=== PATIENT | female | born 1980 | race African-American/Black ===

== ENCOUNTER 2016-08-31 07:50 | Day surgery (SDC) | payer OTHER ==
[2016-08-31] MEDS ORDERED: 1/2 NS 500 ML ONE (08:09)
[2016-08-31] MEDS ORDERED: KEFZOL 1 GM/D5W 50 ML ONE (08:09)
[2016-08-31] MEDS ORDERED: REGLAN ONE (09:23)
[2016-08-31] MEDS ORDERED: HUMULIN R ONE (09:24)
[2016-08-31] MEDS ORDERED: PEPCID ONE (09:24)
[2016-08-31] MEDS ORDERED: LR 1,000 ML ONE (09:27)
[2016-08-31] MEDS ORDERED: SENSORCAINE 0.25%/EPI 1:200,000 ONE (09:27)
[2016-08-31] MEDS ORDERED: SODIUM CHLORIDE 0.9% ONE (09:27)
[2016-08-31 11:19] LABS: CALCIUM 9.3 mg/dL (8.8-10.2)
[2016-08-31] MEDS: DILAUDID ONE ×2 (11:39→11:55)
[2016-08-31] MEDS ORDERED: FENTANYL ONE (11:43)
[2016-08-31] MEDS ORDERED: DIPRIVAN 1% ONE (11:43)
[2016-08-31] MEDS ORDERED: VERSED ONE (11:43)
[2016-08-31] MEDS ORDERED: ZOFRAN ONE ×2 (11:44→12:37)
[2016-08-31] MEDS ORDERED: DILAUDID ONE ×2 (12:12→13:41)
--- NOTE | 2016-08-31 12:33 | OPERATIVE NOTE ---
PROCEDURE DATE: 08/31/2016 PREOPERATIVE DIAGNOSIS: Chronic cholecystitis. POSTOPERATIVE DIAGNOSIS: Chronic cholecystitis. PRINCIPAL PROCEDURE: Laparoscopic cholecystectomy without intraoperative cholangiogram. SURGEON: Concepcion Irene MD. ANESTHESIA: General in addition to local anesthetic. ESTIMATED BLOOD LOSS: 50 mL. DRAINS: None. INDICATIONS: Becky Chaparro is a 36-year-old black female who has end-stage renal disease and requires chronic hemodialysis. She is dialyzing using a right internal jugular PermCath at this time. She has had a history of peritoneal dialysis. She has insulin-dependent diabetes mellitus which is poorly controlled. Her admission glucose was 461 this morning. She also has gastroparesis and multiple other medical problems. She is hospitalized frequently at [facility] and every hospitalization there is a question of her gallbladder. Imaging suggests sludge so I have seen her in our outpatient offices and felt we should proceed with cholecystectomy electively. FINDINGS: The gallbladder was distended, there was no evidence of acute inflammation or stones in the gallbladder. She had a short cystic duct so we did not perform a cholangiogram. We were comfortable with the anatomy in the triangle of Calot. Her liver appears to be healthy. She did have some adhesions between the right lobe of the liver and the anterior abdominal wall. She had only a minimal adhesion between the greater omentum and the anterior abdominal wall in the lower abdomen. There was some inflammation at the duodenum and the underside of the gallbladder which we were able to dissect fairly easily. No other intra-abdominal pathology was noted. We felt we did this operation safely. DESCRIPTION OF PROCEDURE: The patient was brought to the operating room, placed supine, received general anesthesia, was intubated. She also received Ancef prophylactically. She dialyzed last yesterday. Her abdomen was prepped and draped within the sterile field. She had a previous scar below the umbilicus and I excised that scar with a 15 blade scalpel. We used a Veress needle and introduced it through this incision below the umbilicus into the abdomen. Pneumoperitoneum was established. The Veress needle was removed and I placed an 11 mm trocar through this incision into the abdomen. The camera was placed through this port, and the abdomen was explored for injury, and there was none. We placed 3 other trocars under direct vision of the camera along the right costal margin. We placed an 11 mm trocar just to the right of the midline and two 5 mm trocars in our midclavicular and anterior axillary lines. We did take some time to take some pictures intra-abdominally and also we used a spatula cautery to take down the adhesions between the right lobe of the liver and the anterior abdominal wall so that we could mobilize the gallbladder and the right lobe of the liver superiorly. We bluntly dissected the underside of the gallbladder and the duodenum away from this area of the gallbladder bluntly. We identified the triangle of Calot and carefully dissected it again bluntly. We found the cystic artery. A clip was placed distally, 2 proximally. It was divided using hook scissors. We identified the cystic duct which was short. We carefully dissected it free and we placed a clip at the cystic duct gallbladder junction. We decided against the cholangiogram and placed 2 clips proximally on the cystic duct and divided the cystic duct between clips using hook scissors. The spatula cautery was used to remove the gallbladder from the liver bed. There is no spillage of stones or bile during this procedure and then we removed the gallbladder through our umbilical incision. We placed the trocar back through this incision and the area of operation was thoroughly inspected, irrigated, and the irrigation was removed with suction. There was no evidence of ongoing bleeding or bile leak and we decided against leaving a drain. We placed 2 [id number] 2-0 Vicryl stitches to reapproximate the fascia below the umbilicus and all skin was closed with 4-0 Monocryl subcuticular stitches. Dressings were applied. Plans are for her to go the recovery room and possibly be discharged home later today under the care of her family with followup in our outpatient office in 2 weeks.
[2016-08-31] MEDS ORDERED: XYLOCAINE-MPF 2% ONE (12:37)
[2016-08-31] MEDS ORDERED: ZEMURON ONE (12:37)
[2016-08-31] MEDS ORDERED: ROBINUL ONE (12:37)
[2016-08-31] MEDS ORDERED: DECADRON ONE (12:37)
[2016-08-31] MEDS ORDERED: EPHEDRINE ONE (12:37)
[2016-08-31] MEDS ORDERED: NEO-SYNEPHRINE ONE (12:37)
[2016-08-31] MEDS ORDERED: NEOSTIGMINE ONE (12:37)
[2016-08-31] MEDS ORDERED: PHENERGAN ONE (13:40)
[2016-08-31 14:19] VITALS: BP 140/99
== END 2016-08-31 14:35 | disposition home or self-care (01) ==
LOC: OPS 07:50
PROVIDERS: ATTEND Surgery
DX: K81.1 Chronic cholecystitis (principal); Z87.891 Personal history of nicotine dependence; E11.9 Type 2 diabetes mellitus without complications; Z79.4 Long term (current) use of insulin; I10 Essential (primary) hypertension; E78.00 Pure hypercholesterolemia, unspecified; F32.9 Major depressive disorder, single episode, unspecified; Z86.73 Personal history of transient ischemic attack (TIA), and cerebral infarction without residual deficits; Z23 Encounter for immunization
CPT/HCPCS: 80048; 82948; 88304; C1751; J0690; J1100; J1170; J2250; J2370; J2405; J2550; J2765; J3010; J7120; Q9966; J2710

== ENCOUNTER 2016-10-26 06:06 | Day surgery (SDC) | payer OTHER ==
[2016-10-26] MEDS ORDERED: PEPCID ONE (06:26)
[2016-10-26] MEDS ORDERED: KEFZOL 1 GM/D5W 50 ML ONE (06:26)
[2016-10-26] MEDS ORDERED: REGLAN ONE (06:26)
[2016-10-26] MEDS ORDERED: 1/2 NS 500 ML ONE (06:26)
[2016-10-26 06:50] LABS: HEMATOCRIT 40.8 % (37.0-47.0); HEMOGLOBIN 13.3 g/dL (12.0-16.0); MCH 29.2 PG (27-31); MCHC 32.6 g/dL (33-37); MCV 89.5 FL (81-99); MPV 9.6 FL (7.4-10.4); RBC 4.56 XMIL (4.2-5.4)
[2016-10-26 07:13] LABS: CALCIUM 9.7 mg/dL (8.8-10.2); POTASSIUM 4.8 mmol/L (3.5-5.1)
[2016-10-26] MEDS ORDERED: XYLOCAINE 1%/EPI 1:100,000 ONE (08:19)
[2016-10-26] MEDS ORDERED: NS 1,000 ML ONE (08:19)
[2016-10-26] MEDS ORDERED: HEPARIN ONE (08:19)
[2016-10-26] MEDS: MORPHINE ONE ×2 (12:26→12:31)
[2016-10-26] MEDS: HUMULIN R IV ONE ×2 (12:34→13:40)
--- NOTE | 2016-10-26 13:04 | OPERATIVE NOTE ---
PROCEDURE DATE : 10/26/2016 PREOPERATIVE DIAGNOSIS: End-stage renal disease requiring chronic hemodialysis. POSTOPERATIVE DIAGNOSIS: End-stage renal disease requiring chronic hemodialysis. PRINCIPAL PROCEDURE: Right arm transposed basilic vein to brachial artery arteriovenous fistula. SURGEON: Concepcion Irene MD [employer] COORDINATOR: Perez Maynard. ANESTHESIA: General. ESTIMATED BLOOD LOSS: 75 mL. DRAINS: None. INDICATION: Becky Chaparro is a small 36-year-old black female who has end-stage renal disease and requires chronic hemodialysis. She is dialyzing with a right PermCath and we were asked to place a more permanent access. FINDINGS: She had a good basilic vein. Her brachial artery had some disease in it and was small. At the end of our creation of a transposed basilic vein fistula there was a good thrill in this fistula. DESCRIPTION OF PROCEDURE: The patient was brought to the operating room, placed supine, received general anesthesia, and was ventilated. Her right upper extremity was prepped and draped in a sterile field. We used an Ioban on the skin. She received Ancef prophylactically. We began the procedure by making a small transverse incision in the medial aspect of the proximal right arm with a 15 blade scalpel and we identified the basilic vein. When then enlarged our incision along the medial aspect of her right arm as we identified the basilic vein using forceps and scissors. Our incision was placed above the basilic vein along the length of the entire arm. We then divided the basilic vein at the antecubital fossa between 3-0 silk ties and we began dissecting the vein out of its bed being sure that we did not hurt any of the surrounding nerves. As we encountered branches we ligated with 4-0 or 3-0 silk ties. We completely mobilized the basilic vein from distal to proximal up to the axilla. We then dilated it with heparin and saline using a Bulldog clamp proximally. We had marked the vein to be sure we did not twist it and then I used a long Evy clamp to make a tunnel in the subcutaneous tissue more anteriorly on the arm and we brought the entire length of the vein through that tunnel and we performed our end basilic vein to side brachial artery anastomosis in the distal medial right above the antecubital fossa after the basilic vein had been tunneled more superficially and anteriorly in the arm. We performed this end-to-side anastomosis with a double-armed 6-0 Prolene stitch. It must be noted that we controlled flow through the brachial artery with vessel loops. We performed the arteriotomy with an 11 blade scalpel and Pott's scissors and we flushed both proximally and distally in the brachial artery. We also gave the patient 2,000 units of IV heparin. Before we completed the anastomosis we used the dilator to be sure that proximally the artery was opened distally and that the vein remained open after our anastomosis. We reestablished flow through the brachial artery and we had a thrill in our fistula and we felt that it laid nicely in the anterior aspect of the arm. We used 3-0 popoff Vicryl stitches to close the soft tissue around our anastomosis and also to close the entire length of the incision subcutaneous tissue with these pop-off 3-0 Vicryl stitches. We then closed the skin with a skin clip order planner and dressings were applied. She tolerated the procedure well. She will go to the recovery room. We will check flow to her hand and wrist. If she is doing well we may send her home later this afternoon with follow up in my outpatient office.
[2016-10-26] MEDS ORDERED: HUMULIN R ONE (13:39)
[2016-10-26] MEDS ORDERED: NORCO-5 ONE (14:06)
[2016-10-26] MEDS ORDERED: DIPRIVAN 1% ONE (14:37)
[2016-10-26] MEDS ORDERED: FENTANYL ONE (14:37)
[2016-10-26] MEDS ORDERED: NIMBEX 2 MG DOSE ONE (14:45)
[2016-10-26] MEDS ORDERED: NEO-SYNEPHRINE ONE (14:45)
[2016-10-26] MEDS ORDERED: ZOFRAN ONE (14:45)
[2016-10-26] MEDS ORDERED: NS 250 ML ONE (14:45)
[2016-10-26] MEDS ORDERED: ZOFRAN ODT PO ONE (15:00)
[2016-10-26 15:37] VITALS: BP 120/75
== END 2016-10-26 15:20 | disposition home or self-care (01) ==
LOC: OPS 06:06
PROVIDERS: ATTEND Surgery
DX: I12.0 Hypertensive chronic kidney disease with stage 5 chronic kidney disease or end stage renal disease (principal); N18.6 End stage renal disease
CPT/HCPCS: 80048; 82948; 85027; J0690; J1644; J2270; J2370; J2405; J3010; J7030; J7050

== ENCOUNTER 2016-10-27 13:48 | Observation (INO) | payer OTHER ==
--- NOTE | 2016-10-27 14:21 | PROVIDER DOCUMENTATION ---
HPI-General Adult - General Source: patient - History of Present Illness -Gen Adult Nature of Presenting Problems: patient is a 36 y/o F that presents to the ER with elevated blood sugar, n/v, and generalized weakness. patient has long standing history with diabetes. She is ESRD with dialysis. she is awaiting for kidney and pancreatic transplant. She is well know to the ER and hospital. She denies fever/chills, shortness of breath, or chest pain Location of Pain/Injury: reports: generalized Pain Radiation: reports: no radiation Quality of Pain: reports: aching Severity: reports: moderate Onset/Duration: reports: unsure Timing: reports: still present, constant Context/Activities at Onset: reports: none Modifying Factors: improves with: nothing Associated Symptoms: reports: fatigue, muscle aches, nausea, vomiting, weakness . denies: back/neck pain, chest pain, cough, diarrhea, dizziness, EENT symptoms , fever/chills, genitourinary problems, shortness of breath Similar Symptoms Previously?: Yes Recently seen or treated by another doctor?: No - Diabetes Related Context Context: reports: high blood sugar, prior DKA hospitalization <Hamlet Bennett - Last Filed: 10/27/16 14:16> <Brian Fink - Last Filed: 10/27/16 18:09> - General Chief Complaint: Nausea/Vomiting Stated Complaint: hyperglycemia,nausea/vomiting/weakness Time Seen by Provider: 10/27/16 14:14 Allergies/Adverse Reactions: Patient Allergies Allergy/AdvReac Type Severity Reaction Status Date / Time No Known Allergies Allergy Verified 10/27/16 15:54 Home Medications: Home Medication List Medication Instructions Recorded Confirmed Last Taken Type Biotin 1 mg PO EVERY OTHER DAY 01/02/16 10/27/16 10/27/16 07:00 History Zolpidem [Ambien] 10 mg PO HS PRN PRN 06/27/16 10/27/16 10/26/16 History Amlodipine [Norvasc] 10 mg PO DAILY #0 tablet 07/16/16 10/27/16 10/27/16 07:00 Rx Diltiazem C.d. [Cardizem Cd] 360 mg PO DAILY #0 capsule 07/16/16 10/27/16 07:00 Rx Epoetin Yasir [Epogen] 10,000 unit SUBQ MoWeFr@0900 #0 07/16/16 10/27/16 07:00 Rx vial Fluoxetine [Prozac] 40 mg PO DAILY #0 capsule 07/16/16 10/27/16 10/27/16 07:00 Rx Furosemide [Lasix] 80 mg PO BID #0 tablet 07/16/16 10/27/16 10/27/16 07:00 Rx LISINOpril [Prinivil] 20 mg PO DAILY #0 tablet 07/16/16 10/27/16 10/27/16 07:00 Rx Levetiracetam [Keppra] 250 mg PO BID #0 tablet 07/16/16 10/27/16 10/27/16 07:00 Rx Metoprolol [Lopressor] 50 mg PO BID #0 tablet 07/16/16 10/27/16 10/27/16 07:00 Rx Mirtazapine [Remeron] 45 mg PO QHS #0 tablet 07/16/16 10/27/16 10/26/16 Rx Multivitamins/Minerals [Centrum 1 each PO DAILY #0 tablet 07/16/16 10/27/1609/14 07:00 Rx Tablet] PRAVAstatin [Pravachol] 80 mg PO QHS #0 tablet 07/16/16 10/27/16 10/26/16 Rx Sucralfate [Carafate Liquid] 1 gm PO Q6HR #120 udc 07/16/16 10/27/16 10/27/16 07 :00 Rx Pantoprazole [Protonix] 40 mg PO DAILY@0700 #30 tablet 07/27/16 10/27/16 07:00 Rx Insulin Glargine [Lantus] 5 unit SUBQ QHS #0 insuln.pen 08/04/16 10/27/16 Rx Metoclopramide [Reglan] 5 mg PO AC + HS #120 tablet 08/04/16 10/27/16 10/27/16 07:00 Rx Insulin Glargine [Lantus] 10 unit SUBQ QAM 08/31/16 10/27/16 10/27/16 07:00 History Hydrocodone/Acetaminophen [[place] 1 each PO Q4H PRN PRN #30 tablet 10/26/1610/2710/27/16 07:00 Rx 7.5-325 Tablet] Review of Systems - Adult - REVIEW OF SYSTEMS - ADULT Constitutional: reports: fatique. denies: chills, fever Eyes: denies: decreased vision, blurred vision, double vision Ears, Nose, Mouth & Throat: reports: no symptoms reported Cardiovascular: denies: chest pain, palpitations, syncope Respiratory: denies: shortness of breath, wheezing Gastrointestinal: reports: abdominal pain, nausea, vomiting Genitourinary: denies: dysuria, frequency, hematuria Musculoskeletal: denies: back pain, joint pain, neck pain Integumentary: reports: no symptoms reported Neurological: denies: dizziness/vertigo, headache/migraines, seizure, syncope Psychiatric: reports: no symptoms reported Endocrine: reports: no symptoms reported Hematologic/Lymphatic: reports: no symptoms reported Allergic/Immunologic: reports: no symptoms reported All Other Systems: Reviewed and Negative <Hamlet Bennett - Last Filed: 10/27/16 14:16> Past History - Adult - PAST MEDICAL HISTORY-ADULT Review of Records: reports: Old Records Reviewed, Nursing Assessment Review, Medications Reviewed Cardiovascular: reports: CHF, HTN, hyperlipidemia, other (cardiomyopathy) Gastrointestinal: reports: GERD, other (gastroparesis, eroding esophagus) Genitourinary: reports: dialysis (now hemodialysis), ESRD Neurological: reports: CVA, stroke deficits (left sided weakness), Seizures/ Epilepsy Psychiatric: reports: anxiety Endocrine/Immune: reports: Diabetes Other Conditions: reports: cataract/glaucoma - PRIOR SURGERIES/PROCEDURES Surgical/Procedure History: reports: colonoscopy, indwelling device (dialysis access), other (cataract removal) - IMMUNIZATION STATUS Childhood Immunizations: See Nurse Assessment Flu Vaccine: See Nurse Assessment - FAMILY HISTORY Family History: reviewed, not pertinent - SOCIAL HISTORY Smoking: quit greater than 1 year, cigarettes Living Situation: family <Hamlet Bennett - Last Filed: 10/27/16 14:16> Physical Exam-General - PHYSICAL EXAM-ADULT Initial Vital Signs Reviewed: Yes - CONSTITUTIONAL General Appearance: alert, other (chronic ill appearing) - EYES Eyes: PERRL/EOMI, pink conjunctivae - HEAD, EARS, NOSE, MOUTH & THROAT HENMT: normocephalic/atraumatic, normal ENT inspection - NECK Neck: full range of motion, normal inspection - RESPIRATORY Respiratory: lungs clear, normal breath sounds, no respiratory distress, no accessory muscle use - CARDIOVASCULAR Cardiovascular: regular rate, rhythm, no edema, no murmur - GASTROINTESTINAL (ABDOMEN) Abdominal Exam: normal bowel sounds, non tender, soft, no organomegaly, no pulsatile mass - MUSCULOSKELETAL Extremity: no calf tenderness, normal capillary refill, pelvis stable - SKIN Integumentary: warm/dry, other (right arm bandage from av vistula) - NEUROLOGIC Neurologic: grossly normal, no motor/sensory deficits - PSYCHIATRIC Psych/Mental Status: normal mood/affect, oriented x 3 <Hamlet Bennett - Last Filed: 10/27/16 14:16> Progress - EKG 1 EKG Interpretation (*Must complete 3 of following elements*): Normal - XRAY 1 XRAY Study: Chest Impression: See EMR Report - CONSULTS/PCP/HOSPITALIST Notification #1 *Consult/PCP/Hospitalist*: Hospitalist Consult Disposition: Admit #2 [address]: Dr Kay(nephrology) Consult Disposition: Admit <Brian Fink - Last Filed: 10/27/16 18:09> Departure <Hamlet Bennett - Last Filed: 10/27/16 14:16> - Departure Time of Disposition Order: 18:09 Certified Medical Emergency: Emergent <Brian Fink - Last Filed: 10/27/16 18:09> - Departure DIAGNOSIS: Renal failure (ARF), acute on chronic Intractable nausea and vomiting Qualifiers: Vomiting type: unspecified Qualified Code(s): R11.2 - Nausea with vomiting, unspecified Disposition: ADMITTED INPATIENT 09 Condition: Fair Attestation - Scribe Verification/Attestation Scribe:: Hamlet Bennett Acting as Scribe for:: Brian Fink Scribe documention review:: This chart was documented by a scribe and accurately reflects the service the provider performed and the decisions made by the provider. <Hamlet Bennett - Last Filed: 10/27/16 14:16> Physician Attestation - Physician Attestation I, the provider, attest to the following statement:: Brian Fink Physician documentation Attestation:: This documentation recorded by the scribe accurately reflects the service I personally performed and the decisions made by me. <Hamlet Bennett - Last Filed: 10/27/16 14:16>
[2016-10-27] MEDS ORDERED: NS 500 ML IV ONE (14:22)
[2016-10-27 14:38] LABS: BASO% 0.2 % (0.0-0.8); EOS# 0.01 X1000 (0.0-0.7); EOS% 0.1 % (0.0-10.0); HEMATOCRIT 35.5 % (37.0-47.0); HEMOGLOBIN 11.6 g/dL (12.0-16.0); IMM GRAN# 0.06 X1000 (0.0-0.04); IMM GRAN% 0.3 % (0.0-0.5); LYMPH# 1.15 X1000 (1.2-3.4); MANUAL DIFF NEEDED? NO; MCH 29.4 PG (27-31); MCHC 32.7 g/dL (33-37); MCV 89.9 FL (81-99); MONO# 2.23 X1000 (0.11-0.59); MONO% 11.6 % (1.7-9.3); MPV 9.8 FL (7.4-10.4); NEUT% 81.8 % (42.2-75.2); PLT 377 X1000 (130-400); RBC 3.95 XMIL (4.2-5.4)
[2016-10-27 14:41] LABS: ALLEN TEST YES; BE -9.5 mmoll (-3.0-3.0); BLOOD TYPE ARTERIAL; DRAW SITE R RADIAL; O2(CT) 14.2 mL/dL (15.0-23.0); PCO2(98.6) 35 mmHg (35-45); PO2(98.6) 66 mmHg (60-100); SAMPLE BLOOD; SAO2 92.4 % (95.0-100.0); THB 11.1 g/dL (11.5-17.4); pH(98.6) 7.28 (7.35-7.45)
[2016-10-27 14:42] LABS: MODALITY ROOM AIR
[2016-10-27 14:45] LABS: INR 1.03; PROTIME 10.9 Seconds (9.2-11.7); PTT 26.3 Seconds (22.0-36.0)
[2016-10-27 15:15] LABS: AGAP 25; ALKALINE PHOSPHATASE 192 U/L (32-104); BUN 84 mg/dL (8-22); CALCIUM 9.4 mg/dL (8.8-10.2); CHLORIDE 90 mmol/L (98-107); CK PROFILE 39 U/L (24-173); COSMO 302; GOT 15 U/L (10-30); GPT 16 U/L (10-36); MAGNESIUM 2.3 mg/dL (1.5-2.7); POTASSIUM 6.2 mmol/L (3.5-5.1); SODIUM 130 mmol/L (136-145); TCO2 15 mmol/L (25-35); TOTAL BILIRUBIN 0.18 mg/dL (0.20-1.00); TOTAL PROTEIN 7.7 g/dL (6.3-8.3)
[2016-10-27] MEDS ORDERED: LASIX IV ONE (15:24)
[2016-10-27] MEDS ORDERED: DUONEB (A & A) INH ONE (15:24)
[2016-10-27 15:34] LABS: ACETONE SERUM NEGATIVE (NEGATIVE)
--- NOTE | 2016-10-27 16:06 | Diag Imaging Result Document ---
PROCEDURE NAME: CHEST-2 VIEWS - 10/27/2016 CHEST X-RAY 2 VIEWS: COMPARISON: 08/12/2016. FINDINGS: Stable right-sided dialysis catheter in good position. Stable cardiomegaly. The lungs are clear. No pneumothorax or pleural effusion. IMPRESSION: Cardiomegaly. No acute disease.
[2016-10-27] MEDS ORDERED: NS 2,000 ML ONE (16:08)
[2016-10-27] MEDS ORDERED: HEPARIN IV PRN (16:46)
[2016-10-27] MEDS ORDERED: TIGHT: 0.2 ML/HR MISC PRN (16:46)
[2016-10-27] MEDS ORDERED: NS 2,000 ML MISC PRN (16:46)
--- NOTE | 2016-10-27 18:18 | HISTORY AND PHYSICAL ---
PRIMARY CARE PROVIDER: No one. PRIMARY NEUROLOGY PROFESSOR: Dr. Kay. CHIEF COMPLAINT: Hyperglycemia, nausea, vomiting, and weakness. HISTORY OF PRESENT ILLNESS: Ms. Chaparro is a 36-year-old female , well known to our service for multiple admissions for DKA and end-stage renal disease, states that she has not been feeling well over the last couple days. Yesterday, on 10/26/2016 she had a right arm AV fistula surgery for placement. She also has a right jugular hemodialysis catheter. Apparently, she was on a waiting list for a kidney, pancreas transplant. On Tuesday when she was scheduled for dialysis she was called to [facility] and spent most her day there and never received dialysis on Tuesday. Today she has a creatinine that is up to a 10.5. BUN is 84 and her potassium is 6.2. She has already been sent to hemodialysis by Dr. Kay for dialysis. Otherwise, she has no other complaints. Apparently when she was at [facility] the transplant team found out that she has had a history of a stroke and that ruled her out for a transplant possibilities. Will admit her to the medical floor and monitor her overnight. PAST MEDICAL HISTORY: 1. End-stage renal disease on hemodialysis Tuesday, Tuesday, Tuesday. 2. Seizure disorder. 3. Diastolic heart failure. 4. Hypertension. 5. GERD. 6. Diabetic gastroparesis. 7. Diabetes mellitus type 1, uncontrolled. 8. Anemia of chronic disease. 9. Diabetic neuropathy. 10. Esophagitis. 11. 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 12. Recent CVA. PAST SURGICAL HISTORY: 1. AV fistula on 10/26/2016. 2. Corneal transplant. 3. Esophageal dilatation. 4. Hemodialysis catheter placement: SOCIAL HISTORY: Denies alcohol, tobacco, or illicit drug use. FAMILY HISTORY: Positive for hypertension, diabetes, and stroke. She also had a twin sister that from complications of type 1 diabetes, around 10 years ago. ALLERGIES: No known drug allergies. HOME MEDICATIONS: Ambien 10 mg p.o. nightly as needed, biotin 1 mg p.o. every other day, Lantus 10 units subcutaneously daily, Protonix 40 mg p.o. daily, Lantus 5 units subcutaneously nightly, Reglan 5 mg p.o. before meals and at night, Atkins 7.5 one tablet p.o. every 4 hours p.r.n., Carafate 1 g p.o. q.6 hours, diltiazem 360 mg p.o. daily, centrum multivitamin 1 tablet p.o. daily, Epogen 50219 units subcutaneously Tuesday, Tuesday, Tuesday, Keppra 250 mg p.o. twice daily, Lasix 80 mg p.o. twice daily, metoprolol 50 mg p.o. twice daily, Norvasc 10 mg p.o. daily, Pravachol 80 mg p.o. nightly, lisinopril 20 mg p.o. daily, Prozac 40 mg p.o. daily, Remeron 45 mg p.o. nightly. REVIEW OF SYSTEMS: Fourteen point review of systems were complete and all were negative except for those mentioned in the above HPI. LABORATORY DATA: White blood cells 19,000, hemoglobin 11, hematocrit 35, platelet count 377,000. INR 1.03, PTT 26.3. PH 7.28, pCO2 35, PO2 66, bicarb 17, base excess -9, oxyhemoglobin 91%, lactate 1.6. Sodium 130, potassium 6.2, anion gap 25, BUN 84, creatinine is 10.5, glucose 376, calcium 9.4, magnesium 2.3, total bilirubin 0.18, AST 15, ALT 16, alkaline phosphatase 192. CK 39. Troponin less than 0.01. ProBNP greater than 35,000. Acetone level negative. IMAGING: Chest x-ray: Cardiomegaly. No acute disease. Right-sided dialysis catheter in good position. Lungs are clear. PHYSICAL EXAMINATION: VITAL SIGNS: Heart rate 70, respiratory rate 18, blood pressure 117/71, O2 saturation 96%. She is 5 feet 4 inches tall, 123 pounds, BMI 21.1. GENERAL: Ms. Chaparro is a 36-year-old female she is in no acute distress. Resting comfortably while receiving hemodialysis, watching TV. Able to answer all questions appropriately, although she is a little slow to answer questions and sometimes her answers are not completely understandable or clear. HEENT: Atraumatic, normocephalic. Pupils equal, round, reactive to light. Extraocular movements intact. CARDIOVASCULAR: S1, S2. Regular rate and rhythm. No rubs, gallops, or murmurs. PULMONARY: Clear to auscultation. Bilateral breath sounds. No accessory muscle use or work of breathing noted. GI: Soft, nontender, nondistended. Positive bowel sounds x4. NEUROLOGIC: Oriented x4. Moves all extremities equally. EXTREMITIES: No edema noted. Right arm with gauze secondary to newly placed AV fistula. SKIN: Warm, dry, intact. Gauze on the right forearm is dry and intact. ASSESSMENT AND PLAN: 1. End-stage renal disease with acute exacerbation of fluid volume overload and electrolyte imbalance requiring hemodialysis. She missed her dialysis treatment on Tuesday secondary to going to [facility] for a workup for kidney transplant but was ruled out secondary to the fact that she has had a stroke in the past. Dr. Kay is following. 2. Diabetes mellitus type 1. We will continue with pattern blood glucoses and sliding scale insulin. 3. Diastolic heart failure. Continue home medications. 4. Hypertension. Continue home medications. 5. Gastroesophageal reflux disease. Continue proton pump inhibitor. 6. History of stroke, noted. 7. She does have chronic anemia which is stable. She receives Epogen with dialysis treatments. 8. Leukocytosis. White blood cells are up to 19. This could be secondary or reactive to not receiving dialysis on Tuesday. 9. Deep venous thrombosis prophylaxis. Heparin. Dictated by MANNY Pederson for Ron Waterman MD Addendum: I personally evaluated and examined the patient in conjunction to the [employer] and agreed with her assessments and plans. She missed her dialysis on Tuesday and came in with volume overload. [facility]ITAL[facility]
[2016-10-27] MEDS ORDERED: TYLENOL PO PRN (19:23)
[2016-10-27] MEDS ORDERED: HUMALOG SUBQ ONE (19:23)
[2016-10-27] MEDS ORDERED: ZOFRAN IV PRN (19:23)
[2016-10-27] MEDS ORDERED: AMBIEN PO PRN (19:23)
[2016-10-27] MEDS ORDERED: LOVENOX SUBQ SCH (20:00)
[2016-10-27] MEDS: LOPRESSOR PO SCH (20:28)
[2016-10-27] MEDS: REGLAN PO SCH (20:28)
[2016-10-27] MEDS: KEPPRA PO SCH (20:29)
[2016-10-27] MEDS: CARAFATE LIQUID PO SCH (20:29)
[2016-10-27] MEDS: NORCO-7.5 PO PRN (20:30)
[2016-10-27] MEDS ORDERED: PRAVACHOL PO SCH (21:00)
[2016-10-27] MEDS ORDERED: REMERON PO SCH (21:00)
[2016-10-28] MEDS: CARAFATE LIQUID PO SCH ×2 (04:01→08:17)
[2016-10-28] MEDS: NORCO-7.5 PO PRN (06:12)
[2016-10-28] MEDS: REGLAN PO SCH ×2 (06:12→11:18)
[2016-10-28] MEDS: HUMALOG SUBQ SCH ×2 (06:13→10:53)
[2016-10-28] MEDS ORDERED: PROTONIX PO SCH (07:00)
[2016-10-28 07:11] LABS: MAGNESIUM 1.9 mg/dL (1.5-2.7); POTASSIUM 4.4 mmol/L (3.5-5.1)
[2016-10-28] MEDS: KEPPRA PO SCH (08:18)
[2016-10-28] MEDS: LOPRESSOR PO SCH (08:19)
[2016-10-28] MEDS ORDERED: PROZAC PO SCH (09:00)
[2016-10-28] MEDS ORDERED: NORVASC PO SCH (09:00)
[2016-10-28] MEDS ORDERED: PRINIVIL PO SCH (09:00)
[2016-10-28] MEDS ORDERED: CARDIZEM CD PO SCH (09:00)
[2016-10-28 13:11] VITALS: BP 113/69
--- NOTE | 2016-10-28 16:51 | DISCHARGE SUMMARY ---
ADMISSION DATE: 10/27/2016 DISCHARGE DATE: 10/28/2016 CONSULTATIONS: Hardy Kay MD. DISCHARGE DIAGNOSES: 1. End-stage renal disease with acute exacerbation of fluid volume overload and electrolyte imbalance requiring hemodialysis secondary to missing her regular scheduled dialysis for the patient going to [facility] for workup for a kidney transplant, but was ruled out secondary to the fact that she has had a stroke in the past. Dr. Kay follows her. She will continue on her regular scheduled dialysis. 2. Diabetes mellitus type 1. Continue with home medications. 3. Diastolic heart failure. Continue home medications. 4. Hypertension. Continue home medications. 5. Gastroesophageal reflux disease, continue proton pump inhibitor. 6. Drug history, aware. 7. Chronic anemia, stable. HOSPITAL COURSE: Ms. Chaparro is a 36-year-old, female well known to our service for multiple admissions for DKA, end-stage renal disease. States that she has not been feeling well over the last couple of days. Prior to her admission on 10/26/2016, she had a right arm fistula surgery for placement. She also had a right IJ hemodialysis catheter. Ms. Chaparro was on a waiting list for a kidney and pancreas transplant. On Tuesday, she was scheduled for dialysis when she was called to [facility] and spent most of her day there, and never received her dialysis on that Tuesday. Her creatinine was up to 10.5, her BUN was 84. Her potassium was 6.2. She had already been sent to the dialysis by Dr. Kay, so the patient was admitted and watched overnight. The patient is appropriate for discharge home today. Vital signs at time of discharge, temperature is 98.4, heart rate 90, respirations 20, blood pressure 113/69, O2 is 100% on room air. DISCHARGE MEDICINES: As per Dr. Waterman. Please see MAR. DISCHARGE DIET: Renal. FOLLOWUP: Patient is being discharged home. She can follow up with her primary care physician and continue on her regular scheduled dialysis. The patient can return to the ED for any worsening of symptoms. Dictated by MANNY Gonzalez for Ron Waterman MD Addendum: I personally evaluated and examined the patient in conjunction with the [employer] and agreed with her plans and disposition. GARY
[2016-10-29] MEDS ORDERED: EPOGEN SUBQ SCH (09:00)
== END 2016-10-28 13:00 | disposition home or self-care (01) ==
LOC: EDBD → ED 13:48 → 4N 18:07
PROVIDERS: ATTEND Internal Medicine
DX: N18.6 End stage renal disease (principal); E87.70 Fluid overload, unspecified; E87.8 Other disorders of electrolyte and fluid balance, not elsewhere classified; R53.1 Weakness; I69.354 Hemiplegia and hemiparesis following cerebral infarction affecting left non-dominant side; N17.9 Acute kidney failure, unspecified; D63.1 Anemia in chronic kidney disease; E10.22 Type 1 diabetes mellitus with diabetic chronic kidney disease; I13.2 Hypertensive heart and chronic kidney disease with heart failure and with stage 5 chronic kidney disease, or end stage renal disease; E10.65 Type 1 diabetes mellitus with hyperglycemia; I50.32 Chronic diastolic (congestive) heart failure; E10.40 Type 1 diabetes mellitus with diabetic neuropathy, unspecified; D72.829 Elevated white blood cell count, unspecified; Z99.2 Dependence on renal dialysis; R53.83 Other fatigue; E78.5 Hyperlipidemia, unspecified; R11.2 Nausea with vomiting, unspecified; K21.9 Gastro-esophageal reflux disease without esophagitis; Z79.4 Long term (current) use of insulin; Z79.899 Other long term (current) drug therapy; Z87.891 Personal history of nicotine dependence
CPT/HCPCS: 71020; 80048; 80053; 82009; 82550; 82805; 82948; 83605; 83735; 83880; 84484; 85025; 85610; 85730; 87040; 94761; J1644; J1650; J1815; J7030

== ENCOUNTER 2016-12-02 00:47 | Inpatient (IN) ==
[2016-12-02] MEDS ORDERED: REGLAN IV ONE (03:31)
[2016-12-02] MEDS ORDERED: DILAUDID IV ONE (03:32)
--- NOTE | 2016-12-02 03:41 | PROVIDER DOCUMENTATION ---
HPI-General Adult - General Chief Complaint: Nausea/Vomiting Stated Complaint: ABD PAIN Time Seen by Provider: 12/02/16 01:37 Source: patient Allergies/Adverse Reactions: Patient Allergies Allergy/AdvReac Type Severity Reaction Status Date / Time No Known Allergies Allergy Verified 10/27/16 15:54 Home Medications: Home Medication List Medication Instructions Recorded Confirmed Last Taken Type Biotin 1 mg PO EVERY OTHER DAY 01/02/16 12/02/16 12/01/16 History Zolpidem [Ambien] 10 mg PO HS PRN PRN 06/27/16 12/02/16 12/01/16 History Amlodipine [Norvasc] 10 mg PO DAILY #0 tablet 07/16/16 12/02/16 12/01/16 Rx Diltiazem C.d. [Cardizem Cd] 360 mg PO DAILY #0 capsule 07/16/16 12/02/16 Rx Epoetin Yasir [Epogen] 10,000 unit SUBQ MoWeFr@0900 #0 07/16/16 12/02/16 Rx vial Fluoxetine [Prozac] 40 mg PO DAILY #0 capsule 07/16/16 12/02/16 12/01/16 Rx Furosemide [Lasix] 80 mg PO BID #0 tablet 07/16/16 12/02/16 12/01/16 Rx LISINOpril [Prinivil] 20 mg PO DAILY #0 tablet 07/16/16 12/02/16 12/01/16 Rx Levetiracetam [Keppra] 250 mg PO BID #0 tablet 07/16/16 12/02/16 12/01/16 Rx Metoprolol [Lopressor] 50 mg PO BID #0 tablet 07/16/16 12/02/16 12/01/16 Rx Mirtazapine [Remeron] 45 mg PO QHS #0 tablet 07/16/16 12/02/16 12/01/16 Rx Multivitamins/Minerals [Centrum 1 each PO DAILY #0 tablet 07/16/16 12/02/1601/12 Rx Tablet] PRAVAstatin [Pravachol] 80 mg PO QHS #0 tablet 07/16/16 12/02/16 12/01/16 Rx Sucralfate [Carafate Liquid] 1 gm PO Q6HR #120 udc 07/16/16 12/02/16 12/01/16 Rx Pantoprazole [Protonix] 40 mg PO DAILY@0700 #30 tablet 07/27/16 12/02/16 Rx Insulin Glargine [Lantus] 5 unit SUBQ QHS #0 insuln.pen 08/04/16 12/02/16 Rx Metoclopramide [Reglan] 5 mg PO AC + HS #120 tablet 08/04/16 12/02/16 12/01/16 Rx Insulin Glargine [Lantus] 10 unit SUBQ QAM 08/31/16 12/02/16 12/01/16 History Hydrocodone/Acetaminophen [Cary 1 each PO Q4H PRN PRN #30 tablet 10/26/1612/0212/01/16 Rx 7.5-325 Tablet] Nitrofurantoin Monohyd/M-Cryst 100 mg PO BID #14 capsule 11/30/16 12/02/1612/01 Rx [Macrobid 100 mg Capsule] Ondansetron [Zofran] 4 mg PO Q6H PRN PRN #20 tablet 11/30/16 12/02/16 12/01/16 Rx - History of Present Illness -Gen Adult Nature of Presenting Problems: 36 yo BF with DM - 1 came to the ER with N and V for past 4 days. She did go to dialysis Wed for her regularly scheduled appt. however, This am she was unable to keep anyof her meds down. Denies fever wilberto chills Location of Pain/Injury: reports: none Pain Radiation: reports: no radiation Quality of Pain: reports: cramping Severity: reports: moderate Onset/Duration: reports: 4 days ago Timing: reports: still present Context/Activities at Onset: reports: none Modifying Factors: improves with: nothing Associated Symptoms: reports: loss of appetite, nausea, vomiting Similar Symptoms Previously?: Yes Recently seen or treated by another doctor?: Yes (ER) Review of Systems - Adult - REVIEW OF SYSTEMS - ADULT Constitutional: reports: fatique, weight loss Eyes: reports: no symptoms reported Ears, Nose, Mouth & Throat: reports: no symptoms reported Cardiovascular: reports: no symptoms reported Respiratory: reports: no symptoms reported Gastrointestinal: reports: see HPI, other (Known to have gastroparesis) Genitourinary: reports: other (currently on dialysis 3x/ week) Neurological: reports: dizziness/vertigo Psychiatric: reports: depression Past History - Adult - PAST MEDICAL HISTORY-ADULT Review of Records: reports: Old Records Reviewed, Nursing Assessment Review, Medications Reviewed Major Childhood Illnesses: reports: denies history Cardiovascular: reports: CHF, HTN, hyperlipidemia, other (cardiomyopathy) Gastrointestinal: reports: GERD, other (gastroparesis, eroding esophagus) Genitourinary: reports: dialysis, kidney disease Neurological: reports: Seizures/Epilepsy Endocrine/Immune: reports: Diabetes Other Conditions: reports: cataract/glaucoma - PRIOR SURGERIES/PROCEDURES Surgical/Procedure History: reports: colonoscopy, indwelling device (dialysis access), other (cataract removal) - PRIOR HOSPITALIZATIONS Prior Hospitalizations: reports: for other non-related - IMMUNIZATION STATUS Childhood Immunizations: See Nurse Assessment Flu Vaccine: See Nurse Assessment - FAMILY HISTORY Family History: reviewed, not pertinent Physical Exam-General - PHYSICAL EXAM-ADULT Initial Vital Signs Reviewed: Yes - CONSTITUTIONAL General Appearance: moderate distress, cachetic - EYES Eyes: pink conjunctivae - HEAD, EARS, NOSE, MOUTH & THROAT HENMT: moist mucous membranes - NECK Neck: non-tender, full range of motion - RESPIRATORY Respiratory: chest non-tender, lungs clear - CARDIOVASCULAR Cardiovascular: regular rate, rhythm, no edema, no gallop - GASTROINTESTINAL (ABDOMEN) Abdominal Exam: no organomegaly, no pulsatile mass, abdominal bruit, tenderness . negative: normal bowel sounds - LYMPHATIC Lymphatic: no adenopathy - MUSCULOSKELETAL Back Exam: normal inspection, no CVA tenderness Extremity: normal range of motion - SKIN Integumentary: normal color, normal turgor - NEUROLOGIC Neurologic: other (peripheral neuropathy) - PSYCHIATRIC Psych/Mental Status: oriented x 3 Progress - PLAN OF CARE/RESULTS Progress/Plan/Lab Results: Vital Signs - 8 hr 12/02/16 00:50 Temperature 98.2 F Pulse Rate 115 H Respiratory Rate 24 Blood Pressure 193/105 O2 Sat by Pulse Oximetry 99 Orders Category Date Time Status Saline Loc NOW Care 12/02/16 03:30 Active BMP [BASIC METABOLIC PANEL] [CHEM] Stat Lab 12/02/16 03:21 Uncollected CBC WITH ELECTRONIC DIFF [HEME] Stat Lab 12/02/16 03:21 Uncollected Hydromorphone [Dilaudid] Med 12/02/16 03:32 Discontinued 1 mg IV NOW ONE Metoclopramide [Reglan] Med 12/02/16 03:31 Discontinued 10 mg IV NOW ONE Result Diagrams: 12/02/16 03:50 12/02/16 03:50 - REASSESSMENT Reassessment #1 Time Reassessed: 06:55 (vomiting has stopped) Status: improving Departure - Departure Time of Disposition Decision: 06:56 DIAGNOSIS: Gastroparesis Type 1 diabetes Qualifiers: Diabetes mellitus complication status: with kidney complications Diabetes mellitus complication detail: with chronic kidney disease Disposition: ADMITTED INPATIENT 09 Certified Medical Emergency: Emergent Condition: Fair Referrals and Follow-Ups: Vicki Lee MD [Primary Care Provider] -
[2016-12-02 04:09] LABS: MANUAL DIFF NEEDED? NO
[2016-12-02 04:10] LABS: BASO% 0.7 % (0.0-0.8); EOS# 0.02 X1000 (0.0-0.7); EOS% 0.2 % (0.0-10.0); HEMATOCRIT 39.6 % (37.0-47.0); IMM GRAN# 0.02 X1000 (0.0-0.04); IMM GRAN% 0.2 % (0.0-0.5); LYMPH# 1.06 X1000 (1.2-3.4); LYMPH% 10.5 % (20.5-51.1); MCH 30.3 PG (27-31); MCHC 32.8 g/dL (33-37); MCV 92.3 FL (81-99); MONO# 0.97 X1000 (0.11-0.59); MONO% 9.6 % (1.7-9.3); MPV 9.4 FL (7.4-10.4); NEUT% 78.8 % (42.2-75.2); PLT 327 X1000 (130-400); RBC 4.29 XMIL (4.2-5.4)
[2016-12-02 04:31] LABS: POTASSIUM 4.2 mmol/L (3.5-5.1)
[2016-12-02] MEDS ORDERED: NS 3,000 ML IV ONE (07:10)
[2016-12-02 07:16] LABS: ALLEN TEST NO; BLOOD TYPE ARTERIAL; DRAW SITE L BRACHIAL; METHB 1.1 % (0.0-1.5); O2(CT) 16.2 mL/dL (15.0-23.0); PCO2(98.6) 42 mmHg (35-45); PO2(98.6) 68 mmHg (60-100); SAMPLE BLOOD; SAO2 93.7 % (95.0-100.0); THB 12.5 g/dL (11.5-17.4); pH(98.6) 7.37 (7.35-7.45)
[2016-12-02 07:17] LABS: MODALITY ROOM AIR
[2016-12-02 07:40] LABS: ACETAMINOPHEN < 1.2 ug/mL (10-30)
[2016-12-02 07:48] LABS: ALBUMIN 4.4 g/dL (3.5-5.0); ALKALINE PHOSPHATASE 139 U/L (32-104); DIRECT BILIRUBIN < 0.20 mg/dL (0.00-0.20); GOT 17 U/L (10-30); GPT 29 U/L (10-36)
--- NOTE | 2016-12-02 07:54 | Diag Imaging Result Document ---
PROCEDURE NAME: FLAT/UPRIGHT ABD/1 VIEW CHEST - 12/02/2016 FRONTAL CHEST X-RAY AND 2 VIEWS OF THE ABDOMEN: COMPARISON: 10/27/2016. FINDINGS: Stable right-sided dialysis catheter. Heart size remains borderline enlarged. There is some ill-defined linear infiltrate or atelectasis at the cardiac apex that is new from the prior exam. There are cholecystectomy clips. No bowel obstruction or free air. IMPRESSION: Slight worsening atelectasis or infiltrate at the cardiac apex. Stable cardiomegaly.
[2016-12-02] MEDS ORDERED: POTASSIUM CHLORIDE 40 MEQ in NS 250 ML IV PRN (08:41)
[2016-12-02] MEDS ORDERED: SODIUM PHOSPHATE 30 MMOL in D5W 250 ML IV PRN (08:41)
[2016-12-02] MEDS ORDERED: POTASSIUM CHLORIDE 20 MEQ in NS 100 ML IV PRN (08:41)
[2016-12-02] MEDS ORDERED: HUMULIN R 100 UNIT in NS 99 ML IV SCH (08:41)
[2016-12-02] MEDS ORDERED: MAGNESIUM SULFATE 2 GM/S.W.I. 2 GM/50 ML IVPB IV PRN (08:41)
[2016-12-02] MEDS ORDERED: HUMULIN R IV ONE (08:41)
[2016-12-02 08:51] LABS: INR 1.11; PROTIME 11.7 Seconds (9.2-11.7); PTT 25.8 Seconds (22.0-36.0)
[2016-12-02 09:19] LABS: URINE MICRO REVIEW NEEDED? NO; URINE SOURCE CLEAN CATCH
[2016-12-02 09:33] LABS: BILIRUBIN URINE NEGATIVE (NEGATIVE); BLOOD URINE SMALL (NEGATIVE); COLOR YELLOW; GLUCOSE URINE 1000 mg/dL (NEGATIVE); LEUKOCYTES URINE NEGATIVE (NEGATIVE); NITRITE URINE NEGATIVE (NEGATIVE); PH URINE 6.5; PROTEIN URINE 600 mg/dL (NEGATIVE); TURBIDITY URINE HAZY (CLEAR); UROBILINOGEN URINE NORMAL (NORMAL)
[2016-12-02 09:35] LABS: UR EPITHELIAL CELLS >10 /HPF (<10); URINE BACTERIA 4+ /HPF; URINE CULTURE NEEDED? YES; URINE RBC 20-40 /HPF (<10)
[2016-12-02 10:00] LABS: HEMOGLOBIN A1C 11.2 % (4.8-6.0)
--- NOTE | 2016-12-02 10:15 | HISTORY AND PHYSICAL ---
CHIEF COMPLAINT: Abdominal pain, nausea, and vomiting. HISTORY OF PRESENT ILLNESS: Ms. Chaparro is a 36-year-old female, well known to our service with multiple DKA admissions, she also has type 1 diabetes, ESRD on hemodialysis Tuesday, Tuesday, Tuesday, gastroparesis and a history of medical noncompliance who presents with nausea, vomiting, abdominal pain since Tuesday. She started having some slight discomfort in the epigastric region on Tuesday. This progressed to a full on abdominal pain and nausea and vomiting consistent with her gastroparesis. She states that since that time, she has had multiple bouts of emesis a day and has been unable to take her Humalog with each meal, she reports taking her Lantus every morning however. She actually came to the ER 2 days ago and was discharged for the same. Today she comes in with complaints of worsening vomiting and abdominal pain. LABORATORY DATA: Her laboratory data is consistent with fairly severe DKA, she has a CO2 of 14 and an anion gap of 40, although her blood sugars are only 284. Acetone levels were obtained and found to be large. As such, she is going to be started on the DKA protocol and admitted to the floor for appropriate management. She did dialyze yesterday. PAST MEDICAL HISTORY: 1. Multiple DKA admissions. 2. ESRD on hemodialysis Tuesday, Tuesday, Tuesday followed by Dr. Kay. 3. Seizure disorder. 4. Diastolic heart failure. 5. Hypertension. 6. GERD. 7. Diabetic gastroparesis. 8. Type 1 diabetes. 9. Anemia of chronic disease. 10. Diabetic neuropathy. 11. Esophagitis/gastritis. 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 13. History of CVA. SURGICAL HISTORY: She has had AV fistula placed as well as hemodialysis catheters. She also has had a corneal transplant and esophageal dilation. SOCIAL HISTORY: Patient denies tobacco, alcohol or drug use. She is single and has no children and lives with her sister. FAMILY HISTORY: Significant for hypertension, diabetes, stroke. REVIEW OF SYSTEMS: The patient has also been complaining of occasional bright red streaks of blood in her emesis. She denies any chest pain or shortness of breath. She reports epigastric pain and vomiting. She denies any diarrhea. She denies any melena. She does report also that she had a seizure earlier today when she got to the hospital. She denies any lower extremity edema. No orthopnea, no fevers or chills. No unintentional weight gain or weight loss. ALLERGIES: No known drug allergies. HOME MEDICATIONS: 1. Norvasc 10 mg daily. 2. Biotin 1 mg daily. 3. Cardizem CD 360 mg daily. 4. Epogen 63919 units subcutaneous as directed. 5. Prozac 40 mg daily. 6. Lasix 80 mg b.i.d. 7. [place] every 4 hours. 8. Lantus 5 units subcutaneously at bedtime. 9. Lantus 10 units subcutaneously in the a.m. 10. Keppra 250 mg b.i.d. 11. Prinivil 20 mg daily. 12. Reglan 5 mg before meals and at bedtime. 13. Lopressor 50 mg b.i.d. 14. Remeron 45 mg at bedtime. 15. Centrum multivitamin 1 daily. 16. Nitrofurantoin 100 mg b.i.d. 17. Zofran 4 mg p.o. every 6 hours. 18. Protonix 40 mg daily. 19. Pravachol 80 mg p.o. at bedtime. 20. Carafate 1 g q.6 hours. 21. Ambien 10 mg at night. PHYSICAL EXAMINATION: VITAL SIGNS: Blood pressure is 168/98, heart rate is 92, respiratory rate is. O2 saturations 100% on room air. Temperature is 98.2. GENERAL: This is a chronically ill and disheveled appearing 36-year-old, female, lying in hospital bed in no acute distress. NEUROLOGIC: The patient is somewhat sleepy but awakens easily and is oriented. No focal deficits noted. HEENT: Head is atraumatic, normocephalic. Pupils are equal, round and reactive to light. Oral mucosa is dry. Trachea is midline. CHEST: Diminished at the bases but otherwise clear to auscultation bilaterally. CV: Regular rate and rhythm. A 1-2/6 murmur noted. GI: Epigastric tenderness to palpation. Otherwise belly is soft and nondistended. No rigidity. Hypoactive bowel sounds noted. EXTREMITIES: Without edema, clubbing or cyanosis. Pulses diminished but palpable bilateral. DIAGNOSTIC DATA: Abdomen and chest x-ray shows slight worsening atelectasis or infiltrate in the cardiac apex. There is stable cardiomegaly. WBC 10.7, hemoglobin 13, hematocrit 39.6, platelet count 3T7, INR 1.11, ABG on room air pH 7.37, CO2 42, O2 68, bicarb is 24. Sodium 138, potassium 4.2, chloride 85, CO2 14, anion gap 39, BUN 34, creatinine 4.9, glucose 284, magnesium 2. Phosphorus 3.1, AST 17, ALT 29, alkaline phosphatase 139, UA is pending. Salicylates negative. Acetaminophen negative with acetone level large. ASSESSMENT AND PLAN: 1. Diabetic ketoacidosis. The patient will be admitted to the CICU with diabetic ketoacidosis protocol and we will continue aggressive fluid resuscitation, close monitoring of her electrolytes, and overall hemodynamic status closely. 2. End stage renal disease on hemodialysis Tuesday, Tuesday, Tuesday: She dialyzed yesterday. We will consult Dr. Kay for continued management. Currently, she is acidotic but her electrolytes are acceptable, as is her hemoglobin and hematocrit. 3. Reported upper gastrointestinal bleed: Likely secondary to retching, her hemoglobin and hematocrit is stable. We are going to check occult fluid of the gastric contents. We will put her on Protonix b.i.d. 4. Hypertension: We will add p.r.n. IV medications for now and continue her home medications once she is able to eat without vomiting. 5. Gastroparesis: Continue her Reglan once diabetic ketoacidosis has resolved. 6. Type 1 diabetes: We are going to check a hemoglobin A1c and continue her insulin regimen, along with sliding scale insulin once diabetic ketoacidosis has resolved. 7. History of seizures with reported seizure earlier: Her lactic acid is within normal limits. She does not appear to be postictal. There are no focal deficits and she is oriented. We will continue the Keppra and monitor. 8. History of medical noncompliance: Continue education on the importance of proper diabetic management and gastroparesis. 9. Deep venous thrombosis prophylaxis with thromboembolic stockings and sequential compression devices given her reported upper gastrointestinal bleeding. Further recommendations to follow. Dictated by MANNY Ansari for Logan Abraham MD cc: MANNY Ansari MD
[2016-12-02 10:23] LABS: AMYLASE 270 U/L (20-200); LIPASE 11 U/L (13-60)
[2016-12-02] MEDS: D50W SYRINGE IV PRN (10:30)
[2016-12-02 10:42] LABS: MAGNESIUM 2.1 mg/dL (1.5-2.7); POTASSIUM 4.5 mmol/L (3.5-5.1)
[2016-12-02 11:13] LABS: UR AMPHETAMINES QUAL NONE DETECTED (NONE DETECT); UR BARBITUATES QUAL NONE DETECTED (NONE DETECT); UR BENZODIAZEPIN QUAL NONE DETECTED (NONE DETECT); UR CANNABINOIDS QUAL NONE DETECTED (NONE DETECT); UR COCAINE QUAL NONE DETECTED (NONE DETECT); UR METHADONE QUAL NONE DETECTED (NONE DETECT); UR OPIATES QUAL PRESUMPTIVE POSITIVE (NONE DETECT); UR OXYCODONE QUAL NONE DETECTED (NONE DETECT); UR PCP QUAL NONE DETECTED (NONE DETECT)
[2016-12-02] MEDS: NS 1,000 ML IV SCH ×2 (11:27→11:28)
[2016-12-02] MEDS: PROTONIX IV SCH ×2 (12:35→23:35)
[2016-12-02] MEDS: SODIUM CHLORIDE 0.9% INJ SCH ×2 (12:35→23:35)
[2016-12-02] MEDS: D5 NS 1,000 ML IV SCH ×3 (12:35→20:58)
[2016-12-02] MEDS: 1/2 NS 1,000 ML IV SCH ×2 (12:43→17:52)
[2016-12-02 15:31] LABS: CALCIUM 8.1 mg/dL (8.8-10.2); MAGNESIUM 1.9 mg/dL (1.5-2.7); POTASSIUM 3.5 mmol/L (3.5-5.1)
[2016-12-02 17:44] LABS: CALCIUM 8.2 mg/dL (8.8-10.2); MAGNESIUM 1.8 mg/dL (1.5-2.7); POTASSIUM 3.4 mmol/L (3.5-5.1)
--- NOTE | 2016-12-02 18:05 | CONSULTATION ---
DATE OF CONSULTATION: 12/02/2016 REASON FOR CONSULTATION: Assistance with management. HISTORY OF PRESENT ILLNESS: Ms. Chaparro is a 36-year-old woman who is well known to us. She has type 1 diabetes and gastroparesis and has frequent admissions with nausea, vomiting, and DKA. She has end-stage kidney disease and receives hemodialysis on a regular basis. She developed her stereotypical problem within the last 24 hours and has had admissions to the ER in that period of time. Because her symptoms did not improve she returned where she was found to be in DKA and therefore admitted for treatment with IV insulin. Currently her nausea and vomiting are better and she is not short of breath. PAST MEDICAL HISTORY: As above. ALLERGIES: None. HOME MEDICATIONS: Include Zolpidem, diltiazem, epoetin, furosemide, lisinopril, levetiracetam, metoprolol, multivitamin, pravastatin, sucralfate, amlodipine, fluoxetine, mirtazapine, pantoprazole, insulin, metoclopramide, hydrocodone, ondansetron. ALLERGIES: None. SOCIAL HISTORY: She has had considerable problems with unstable home environment. She has lived with her parents, her grandparents and her boyfriend at various times recently. FAMILY HISTORY: Noncontributory. PHYSICAL EXAM: Thin young black female, no distress.Skin: Warm and dry. HEENT: Conjunctivae are pink. Pupils are equal. Neck: Neck veins are not distended. Trachea is midline. Heart: Regular with an S4. Lungs: Have equal breath sounds. No crackles. Abdomen: Soft, nontender. Bowel sounds present. Extremities: Have no edema, clubbing, or cyanosis. IMPRESSION: 1. End-stage kidney disease. She will continue dialysis per her routine treatment plan. 2. DKA. Anion gap is improved. Continue protocol. 3. Electrolytes/acid base in target. 4. Anemia in target. cc: Hardy Kay MD
[2016-12-02 21:27] LABS: CALCIUM 8.5 mg/dL (8.8-10.2); MAGNESIUM 1.8 mg/dL (1.5-2.7); POTASSIUM 3.6 mmol/L (3.5-5.1)
[2016-12-03 00:58] LABS: MAGNESIUM 1.7 mg/dL (1.5-2.7)
[2016-12-03 01:01] LABS: CALCIUM 8.1 mg/dL (8.8-10.2); POTASSIUM 3.5 mmol/L (3.5-5.1)
[2016-12-03] MEDS: 1/2 NS 1,000 ML IV SCH ×2 (01:13→12:05)
[2016-12-03] MEDS: D5 NS 1,000 ML IV SCH (04:11)
[2016-12-03 05:08] LABS: HEMATOCRIT 34.1 % (37.0-47.0); HEMOGLOBIN 10.7 g/dL (12.0-16.0); MCH 29.9 PG (27-31); MCHC 31.4 g/dL (33-37); MCV 95.3 FL (81-99); MPV 9.1 FL (7.4-10.4); RBC 3.58 XMIL (4.2-5.4)
[2016-12-03 05:22] LABS: ALBUMIN 3.5 g/dL (3.5-5.0); CALCIUM 8.4 mg/dL (8.8-10.2); POTASSIUM 3.6 mmol/L (3.5-5.1)
[2016-12-03 05:23] LABS: HEMOGLOBIN A1C 11.5 % (4.8-6.0)
[2016-12-03] MEDS ORDERED: NS 1,000 ML IV SCH (06:29)
[2016-12-03] MEDS ORDERED: NS 2,000 ML MISC PRN (07:11)
[2016-12-03] MEDS ORDERED: TIGHT: 0.2 ML/HR MISC PRN (07:11)
[2016-12-03] MEDS ORDERED: HEPARIN IV PRN (07:11)
[2016-12-03] MEDS ORDERED: MISC. PHARMACY COMMUNICATION SCH (07:30)
[2016-12-03] MEDS: LANTUS SUBQ SCH ×2 (07:54→08:15)
[2016-12-03] MEDS ORDERED: KEPPRA PO SCH (09:00)
[2016-12-03] MEDS: CARDIZEM CD PO SCH (09:32)
[2016-12-03] MEDS: NORVASC PO SCH (09:33)
[2016-12-03] MEDS: CENTRUM TABLET PO SCH (09:33)
[2016-12-03] MEDS: PROZAC PO SCH (09:33)
[2016-12-03] MEDS: LOPRESSOR PO SCH ×2 (09:33→21:28)
[2016-12-03] MEDS: EPOGEN SUBQ SCH (09:34)
[2016-12-03] MEDS: HUMULIN R SUBQ SCH ×4 (09:35→21:27)
[2016-12-03] MEDS: NORCO-7.5 PO PRN (10:08)
[2016-12-03] MEDS: ZOFRAN IV PRN (10:08)
[2016-12-03] MEDS: PROTONIX IV SCH (10:29)
[2016-12-03] MEDS ORDERED: ATIVAN ONE (11:02)
[2016-12-03] MEDS ORDERED: ATIVAN IV ONE ×2 (11:03→11:07)
[2016-12-03] MEDS: APRESOLINE IV PRN (11:08)
[2016-12-03] MEDS: D5 1/2 NS 1,000 ML IV SCH (12:05)
[2016-12-03] MEDS ORDERED: NS 2,000 ML ONE (12:21)
[2016-12-03] MEDS ORDERED: HEPARIN ONE (12:21)
[2016-12-03 13:09] LABS: CALCIUM 8.9 mg/dL (8.8-10.2); POTASSIUM 3.8 mmol/L (3.5-5.1)
--- NOTE | 2016-12-03 14:41 | CONSULTATION ---
DATE OF CONSULTATION: 12/03/2016 REASON FOR CONSULTATION: Ms. Chaparro is 36 years old. She has had another episode consistent with seizure. Nursing staff noticed her to have some generalized rigidity, arms flexed tonically at the elbow bilaterally, and some jerking. There was not clear focal feature to the episode or the postictal state. She has been somnolent since the episode a short time ago. She is awake enough to give me some history. She reports taking her medicines, including levetiracetam, as directed. She keeps up with her dialysis schedule. She believes that she has not had a seizure before this morning since she was in the hospital 5 months ago. She does not report any new medications. She has been continuing dialysis. Dr. Kay has seen her here. She was admitted this time with DKA. LABORATORY AND IMAGING DATA: Laboratory work shows blood sugars recently 60s to 170s, A1c 11.5%, presenting blood sugar in high 200s yesterday. BUN and creatinine are elevated, as before, with no major changes. Alkaline phosphatases is mildly elevated. Drug screen was positive for opiates in the urine, consistent with her home medication list including p.r.n. hydrocodone/acetaminophen. I do not think she has had brain imaging this admission. 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 HOME MEDICATION: List includes levetiracetam 250 mg b.i.d. She has been managed with low levetiracetam dose because of her renal failure. EXAMINATION: She is awake, alert, attentive. When not stimulated, she seems quickly back to sleep. She has good power in the arms, equal ton container shipper strength, no drift. She did well on finger-to- nose testing bilaterally. She reports equal pinprick and light touch appreciation over the hands. She did rapid alternating movements symmetrically with the hands. Head and neck are unremarkable. Visual vail are full, tested grossly. Extraocular movements are full. Facial motility is symmetric. Tongue is midline. I did not test her gait. IMPRESSIONS: 1. Recent episode sounds like generalized seizure with typical postictal state and no definite focal feature. We can check the levetiracetam serum level, empirically increase her dose until that is reported, and follow her clinically. We will consider EEG when practical. Reason for recent "breakthrough" seizure is not certain and may be related to low levetiracetam serum level, recent elevated blood sugar and diabetic ketoacidosis, or combination of metabolic factors. 2. There is also history of spells of generalized shaking without altered awareness, memory gap, other typical seizure features. These seem likely to be something other than true epileptic seizure. The episode this morning seems to have been more typical of true seizure. Thanks for asking me to see Ms. Chaparro again. cc: MD GARY Flores III
--- NOTE | 2016-12-03 14:59 | PROGRESS NOTE ---
DATE: 12/03/2016 SUBJECTIVE: No nausea or vomiting today. No shortness of breath. OBJECTIVE: General: On physical exam, blood pressure 111/52, heart rate 981, respirations 24, afebrile. General: She is a chronically ill, young woman in no distress, lying flat. Skin: Warm and dry. Eyes: Conjunctivae are pink. Neck: Neck veins are not visible. Heart: Regular. Lungs: Have equal breath sounds. No crackles. Abdomen: Soft, nontender. Bowel sounds are present. Extremities: Have no edema, clubbing, or cyanosis. LABORATORY DATA: Sodium 141, potassium 3.8, chloride 104, bicarbonate 20, BUN 35 creatinine 6.0. IMPRESSION: End-stage kidney disease. She will have her routine hemodialysis today targeting her outpatient dry weight. Electrolytes and acid-base are in target. Her anion gap is closed. Her hemoglobin has fallen since admission. We will follow this. cc: Hardy Kay MD
--- NOTE | 2016-12-03 15:54 | PROGRESS NOTE ---
DATE: 12/03/2016 SUBJECTIVE: When I evaluated this patient, she was status post seizure that resolved with Ativan. This patient was evaluated by Neurology Department, and they increased empirically the level of Keppra from 250 to 500. We will continue to monitor. The blood sugar and anion gap have been under control. We put this patient back on Lantus, and we will continue with sliding scale as well. This patient is end-stage renal disease, and Nephrology Department is following this patient. Will continue with dialysis as scheduled. OBJECTIVE: Vital signs: Temperature 98.2, pulse 91, respiratory rate 24, blood pressure 111/52, oxygen saturation 100% on room air. HEENT: Head normocephalic. No trauma. PERRLA. Neck: Supple. No JVD. No masses. Central trachea. Chest: Clear to auscultation. No wheezing. No rales. Abdomen: Soft, nontender, nondistended. No hepatosplenomegaly. Cardiovascular: Regular rate and rhythm. Systolic murmur 2/6. Extremities: No edema. No clubbing. No cyanosis. Neurological examination: This patient is somnolent. At this moment, she is not following commands. LABORATORY: WBC 8.2, hemoglobin 10.7, hematocrit 34.1, platelets 239, sodium 141, potassium 3.8, chloride 104, bicarbonate 20, BUN 35, creatinine 6, glucose 184, hemoglobin A1c 11.5, calcium 8.9, phosphorus 4.1, magnesium 2, albumin 3.5. ASSESSMENT AND PLAN: 1. Diabetic ketoacidosis. This condition resolved. Will continue monitoring this patient in the [facility]. We put this patient back on long-acting insulin and sliding scale insulin. Will continue with IV fluids. 2. Seizure disorder. This patient had an episode of seizure today. Neurology Department is following this patient, and they increased the dose of Keppra from 250 twice a day to 500 twice a day. Will continue to monitor. 3. End-stage renal disease, on hemodialysis Tuesday, Tuesday, and Tuesday. Nephrology Department is following, and we will continue following their recommendations. 4. Reported upper gastrointestinal bleed, likely secondary to nausea and vomiting, retching. Hemoglobin and hematocrit decreased but likely secondary to IV fluids. Will continue to monitor. 5. Hypertension, stable. 6. Gastroparesis. Continue with same management. 7. Type 1 diabetes, uncontrolled. The hemoglobin A1c is 11.2. I will continue with long-acting insulin and sliding scale, and I will adjust the treatment as needed. 8. History of medical noncompliance. This is likely why she is here. I do not think she is taking her medications as prescribed. 9. Deep vein thrombosis prophylaxis. Will continue with sequential compression devices given her reported upper gastrointestinal bleed and further recommendations to follow. cc: Logan Abraham MD
[2016-12-03] MEDS: KEPPRA 500 MG in NS 100 ML IV SCH (16:46)
[2016-12-03] MEDS ORDERED: LANTUS SUBQ SCH (21:00)
[2016-12-03] MEDS ORDERED: KEPPRA 250 MG in NS 100 ML IV SCH (21:00)
[2016-12-03] MEDS ORDERED: INSULIN PEN NEEDLES ONE (21:05)
[2016-12-03] MEDS: PRAVACHOL PO SCH (21:29)
[2016-12-03] MEDS: REMERON PO SCH (21:29)
[2016-12-04] MEDS: PROTONIX IV SCH ×3 (00:07→23:04)
[2016-12-04] MEDS: 1/2 NS 1,000 ML IV SCH ×2 (00:08→15:44)
[2016-12-04] MEDS: HUMULIN R SUBQ SCH ×6 (00:08→20:11)
[2016-12-04] MEDS: SODIUM CHLORIDE 0.9% INJ SCH ×2 (00:08→11:40)
[2016-12-04] MEDS: KEPPRA 500 MG in NS 100 ML IV SCH ×2 (00:09→13:28)
[2016-12-04] MEDS: D5 1/2 NS 1,000 ML IV SCH (03:18)
[2016-12-04 05:37] LABS: MANUAL DIFF NEEDED? NO
[2016-12-04 05:42] LABS: EOS# 0.15 X1000 (0.0-0.7); EOS% 2.4 % (0.0-10.0); HEMATOCRIT 33.9 % (37.0-47.0); HEMOGLOBIN 10.7 g/dL (12.0-16.0); LYMPH# 1.74 X1000 (1.2-3.4); MCH 29.7 PG (27-31); MCHC 31.6 g/dL (33-37); MCV 94.2 FL (81-99); MONO# 0.82 X1000 (0.11-0.59); MONO% 13.2 % (1.7-9.3); MPV 9.2 FL (7.4-10.4); NEUT% 55.4 % (42.2-75.2); PLT 216 X1000 (130-400)
[2016-12-04 06:16] LABS: ALBUMIN 3.2 g/dL (3.5-5.0); CALCIUM 8.1 mg/dL (8.8-10.2); POTASSIUM 3.4 mmol/L (3.5-5.1)
[2016-12-04] MEDS: D50W SYRINGE IV PRN (06:46)
[2016-12-04] MEDS ORDERED: KLOR-CON PO ONE (08:15)
[2016-12-04] MEDS: CENTRUM TABLET PO SCH (08:57)
[2016-12-04] MEDS: CARDIZEM CD PO SCH (08:57)
[2016-12-04] MEDS: PROZAC PO SCH (08:58)
[2016-12-04] MEDS: LOPRESSOR PO SCH ×2 (08:58→20:09)
[2016-12-04] MEDS: ROCEPHIN 1 GM/NS 1 GM/50 ML IVPB IV SCH (09:01)
[2016-12-04] MEDS: NORVASC PO SCH (09:03)
[2016-12-04] MEDS: NORCO-7.5 PO PRN (09:30)
[2016-12-04] MEDS: ZOFRAN IV PRN (10:58)
--- NOTE | 2016-12-04 11:42 | PROGRESS NOTE ---
DATE: 12/04/2016 SUBJECTIVE: This patient is more alert and awake today. During my evaluation, she was eating. She has been having episodes of hypoglycemia. I stopped the long acting insulin, and I will continue with sliding scale insulin. I talked to the patient, and apparently she uses insulin Lantus 12 units in the morning, but her diabetes is not well controlled. Her hemoglobin A1c is 11.2. OBJECTIVE: Vital signs: Temperature is 97.1, pulse 86, respiratory rate 15, blood pressure 125/76, oxygen saturation is 97% on room air. HEENT: Head is normocephalic, no trauma. PERRLA. Neck: Supple. No JVD. No masses. Central trachea. Chest: Clear to auscultation. No wheezing. No rales. Abdomen: Soft, nontender, nondistended. No hepatosplenomegaly. Cardiovascular: Regular rate and rhythm. Systolic murmur. Extremities: No edema, no clubbing, no cyanosis. Neurologic: The patient is alert. She is oriented x3. No focal neurological deficits. DIAGNOSTIC DATA: WBC is 6.2, hemoglobin 10.7, hematocrit 33.9, platelets 216. Sodium is 143, potassium 3.4, chloride 106, bicarbonate 24, BUN is 19, creatinine 4.3, glucose 78, calcium 8.1, phosphorus 3.3. Albumin 3.2. ASSESSMENT AND PLAN: 1. Diabetic ketoacidosis. This condition resolved. Continue to monitor this patient in the CIC Unit. I stopped the long acting insulin, and I will continue with sliding scale. She has been having episodes of hypoglycemia. Probably this patient will stay in the hospital for 1 or 2 more days. 2. Seizure disorder. She had an episode of seizures yesterday. Neurology Department increased the dose of Keppra from 250 twice a day to 500 mg twice a day. We will continue to monitor. 3. End stage renal disease on hemodialysis Tuesday, Tuesday and Tuesday. Nephrology Department has been consulted. 4. Possible urinary tract infection. I will start this patient on ceftriaxone. 5. Reported upper gastrointestinal bleed. This is likely secondary to retching. Hemoglobin and hematocrit decreased but likely secondary to IV fluids. I will continue to monitor. 6. Hypertension. Stable. 7. Gastroparesis. This patient is tolerating food. 8. Type 2 diabetes, uncontrolled. Hemoglobin A1c is 11.2. Apparently this patient is using Lantus 12 units daily in the morning. I will continue for now with just sliding scale insulin, and I will readjust the Lantus tomorrow. 9. History of medical noncompliance. This is why this patient is here. I do not think she is taking her medications as prescribed. 10.DVT prophylaxis. Continue with SCDs given her reported upper GI bleed. Critical care time is 35 minutes. cc: Logan Abraham MD
--- NOTE | 2016-12-04 15:07 | PROGRESS NOTE ---
DATE: 12/04/2016 SUBJECTIVE: She has no nausea or vomiting today. She did have seizures yesterday but has tolerated p.o. and has taken her medicines by mouth today without difficulty. No further seizures. OBJECTIVE: Vital Signs: Blood pressure 158/67, heart rate 92, respirations 16, afebrile. General: She is a thin, young black female, no distress. Skin: Warm and dry. HEENT: Conjunctivae are pink. Pupils are equal. Neck: Neck veins are not distended. Heart: Regular. Lungs: Equal. No crackles. Abdomen: Soft, nontender. Bowel sounds present. Extremities: No edema, clubbing, or cyanosis. LABORATORY DATA: Sodium 143, potassium 3.4, chloride 106, bicarbonate 24, BUN 19, creatinine 4.3. Hemoglobin 10.7. IMPRESSIONS: 1. End-stage kidney disease. Her next scheduled dialysis is Tuesday. 2. Nausea and vomiting. Improved. 3. Seizures. Improved. She should be able to take her Keppra by mouth at this point. cc: Hardy Kay MD
[2016-12-04] MEDS: PRAVACHOL PO SCH (20:09)
[2016-12-04] MEDS: REMERON PO SCH (20:09)
[2016-12-04] MEDS: KEPPRA PO SCH (20:09)
[2016-12-05] MEDS: HUMULIN R SUBQ SCH ×7 (01:21→21:25)
[2016-12-05] MEDS: NORCO-7.5 PO PRN ×2 (02:08→09:43)
[2016-12-05] MEDS: 1/2 NS 1,000 ML IV SCH (04:10)
[2016-12-05 05:46] LABS: HEMATOCRIT 35.4 % (37.0-47.0); MCH 29.4 PG (27-31); MCHC 31.1 g/dL (33-37); MCV 94.7 FL (81-99); MPV 9.4 FL (7.4-10.4); RBC 3.74 XMIL (4.2-5.4)
[2016-12-05 06:31] LABS: ALBUMIN 3.3 g/dL (3.5-5.0); CALCIUM 8.2 mg/dL (8.8-10.2); POTASSIUM 5.1 mmol/L (3.5-5.1)
[2016-12-05] MEDS: D50W SYRINGE IV PRN ×2 (08:19→12:57)
[2016-12-05] MEDS: KEPPRA PO SCH ×2 (08:59→21:25)
[2016-12-05] MEDS: LOPRESSOR PO SCH ×2 (08:59→21:24)
[2016-12-05] MEDS: CENTRUM TABLET PO SCH (08:59)
[2016-12-05] MEDS: PROZAC PO SCH (08:59)
[2016-12-05] MEDS: ROCEPHIN 1 GM/NS 1 GM/50 ML IVPB IV SCH (08:59)
[2016-12-05] MEDS: CARDIZEM CD PO SCH (08:59)
[2016-12-05] MEDS: NORVASC PO SCH (08:59)
[2016-12-05] MEDS: LANTUS SUBQ SCH (09:00)
[2016-12-05] MEDS: ZOFRAN IV PRN (09:07)
[2016-12-05] MEDS: SODIUM CHLORIDE 0.9% INJ SCH (11:50)
[2016-12-05] MEDS: PROTONIX IV SCH (11:50)
--- NOTE | 2016-12-05 16:29 | PROGRESS NOTE ---
DATE: 12/05/2016 SUBJECTIVE: This patient is alert and awake today. We talked about her diabetes management and she told me that she takes 12 units of Lantus in the morning. She also told me that her blood sugar in the morning is around 350 and her hemoglobin A1c here is 11.2. She received around 26 units yesterday during the day of sliding scale and during the night she received 18 more units. I will start this patient today again on Lantus but I will start with 20 and I will continue with the sliding scale insulin. OBJECTIVE: Vital Signs: Temperature 98.3 degrees, pulse 72, respiratory rate 17, blood pressure 110/45, oxygen saturation 98 on room air. HEENT: Head normocephalic. No trauma. PERRLA. Neck: Supple. No JVD. No masses. Central trachea. Chest: Clear to auscultation. No wheezing. No rales. Abdomen: Soft, nontender, nondistended. No hepatosplenomegaly. Cardiovascular: RRR. Systolic murmur. Extremities: No edema. No clubbing. No cyanosis. Neurological: The patient is alert. She is oriented x3. No focal neurological deficits. LABORATORY: WBC 7.3, hemoglobin 11.8, hematocrit 35.4, platelets 213. Sodium 136, potassium 5.1, chloride 102, bicarbonate 21, BUN 33, creatinine 5.9, glucose 255, calcium 8.2, albumin 3.3. ASSESSMENT AND PLAN: 1. Diabetic ketoacidosis. This condition has resolved. I will continue with this patient in the CIC unit because she has been having episodes of hypoglycemia. Today I will restart the Lantus but instead of 12 units that she is using at home I will start with 20. The reason behind that is that she received yesterday during the night 26 units and during the night 18. On the other hand her hemoglobin A1c is 11.2. 2. Seizure disorder. This patient had an episode of seizures 2 days ago. Neurology department increased her Keppra from 250 twice a day to 500 twice a day. Will monitor. 3. End-stage renal disease on hemodialysis Tuesday, Tuesday, and Tuesday. Nephrology department is following this patient. 4. Possible urinary tract infection. This patient is on ceftriaxone. 5. Reported upper gastrointestinal bleed. This is likely secondary to retching. Hemoglobin and hematocrit decreased but this is likely secondary to IV fluids. Continue to monitor. 6. Hypertension, stable. 7. Gastroparesis. This patient is tolerating food. 8. Type 2 diabetes. Uncontrolled hemoglobin A1c. Apparently this patient is using 12 units daily in the morning. I will start this patient on Lantus 20. 9. History of medical noncompliance. This is why this patient is here. I do not think she is taking her medications as prescribed. 10. Deep vein thrombosis prophylaxis. Continue with SCDs. cc: Logan Abraham MD MTDD
[2016-12-05] MEDS: REMERON PO SCH (21:24)
[2016-12-05] MEDS: PRAVACHOL PO SCH (21:24)
[2016-12-06] MEDS: HUMULIN R SUBQ SCH ×3 (00:21→09:06)
[2016-12-06] MEDS: 1/2 NS 1,000 ML IV SCH (00:21)
[2016-12-06] MEDS: PROTONIX IV SCH ×3 (00:21→23:57)
[2016-12-06] MEDS: ZOFRAN IV PRN (01:16)
[2016-12-06] MEDS: ATIVAN IV PRN (02:41)
[2016-12-06 03:33] LABS: ACETONE SERUM SMALL (NEGATIVE)
[2016-12-06 03:49] LABS: BASO% 0.3 % (0.0-0.8); EOS# 0.03 X1000 (0.0-0.7); EOS% 0.3 % (0.0-10.0); HEMATOCRIT 34.6 % (37.0-47.0); HEMOGLOBIN 10.4 g/dL (12.0-16.0); IMM GRAN# 0.07 X1000 (0.0-0.04); IMM GRAN% 0.6 % (0.0-0.5); LYMPH# 0.56 X1000 (1.2-3.4); LYMPH% 4.8 % (20.5-51.1); MANUAL DIFF NEEDED? YES; MCH 29.1 PG (27-31); MCHC 30.1 g/dL (33-37); MCV 96.9 FL (81-99); MONO# 0.81 X1000 (0.11-0.59); MONO% 6.9 % (1.7-9.3); MPV 9.9 FL (7.4-10.4); NEUT% 87.1 % (42.2-75.2); PLT 219 X1000 (130-400); RBC 3.57 XMIL (4.2-5.4)
[2016-12-06 03:54] LABS: AGAP 29; BUN 45 mg/dL (8-22); CHLORIDE 92 mmol/L (98-107); COSMO 302; POTASSIUM 6.1 mmol/L (3.5-5.1); SODIUM 130 mmol/L (136-145); TCO2 9 mmol/L (25-35)
[2016-12-06 06:50] LABS: BANDS 6 % (0-1); LYMPHS 2 % (21-51); MONO 10 % (1-9)
[2016-12-06] MEDS ORDERED: NS 2,000 ML MISC PRN (07:51)
[2016-12-06] MEDS ORDERED: HEPARIN IV PRN (07:51)
[2016-12-06] MEDS ORDERED: TIGHT: 0.2 ML/HR MISC PRN (07:51)
[2016-12-06] MEDS: ROCEPHIN 1 GM/NS 1 GM/50 ML IVPB IV SCH (08:52)
[2016-12-06] MEDS: CENTRUM TABLET PO SCH (08:53)
[2016-12-06] MEDS: PROZAC PO SCH (08:53)
[2016-12-06] MEDS: LOPRESSOR PO SCH ×2 (08:53→20:28)
[2016-12-06] MEDS: KEPPRA PO SCH ×2 (08:53→20:28)
[2016-12-06] MEDS: NORVASC PO SCH (08:54)
[2016-12-06] MEDS: LANTUS SUBQ SCH (09:07)
[2016-12-06] MEDS: CARDIZEM CD PO SCH (09:20)
[2016-12-06] MEDS: EPOGEN SUBQ SCH (09:20)
[2016-12-06] MEDS: SODIUM CHLORIDE 0.9% INJ SCH ×2 (11:23→23:58)
[2016-12-06] MEDS ORDERED: NS 1,000 ML IV ONE (11:36)
--- NOTE | 2016-12-06 12:16 | PROGRESS NOTE ---
DATE: 12/06/2016 SUBJECTIVE: She has had more nausea and vomiting. She had an EEG done this morning. She has not eaten yet. OBJECTIVE: Vital Signs: Blood pressure 102/52, heart rate 94, respirations 16, temperature 100 degrees. Generally: She is a young, ill-appearing woman lying flat, but no acute distress. Skin: Warm and dry. Conjunctivae are pink. Oropharynx is moist. Neck: Neck veins are not distended. Heart: Regular with tachycardia and a gallop. Lungs: Have equal breath sounds. No crackles. Abdomen: Soft, nontender. Bowel sounds are present. Extremities: Have no edema, clubbing, or cyanosis. LABORATORY DATA: Sodium 130, potassium 6.1, chloride 92, bicarbonate 19, BUN 45, creatinine 6.9. IMPRESSION: 1. Diabetic ketoacidosis, recurrent. We will discuss with the primary team. 2. Hyperkalemia. We will address this with dialysis today. 3. End-stage kidney disease. Dialysis today. 4. Recent seizures. EEG was performed this morning. 5. Anemia stable. 6. Hypertension in target. cc: Hardy Kay MD
[2016-12-06] MEDS ORDERED: NS 2,000 ML ONE (12:24)
[2016-12-06] MEDS ORDERED: HEPARIN ONE (12:25)
[2016-12-06] MEDS ORDERED: SODIUM PHOSPHATE 30 MMOL in D5W 250 ML IV PRN (12:46)
[2016-12-06] MEDS ORDERED: HUMULIN R 100 UNIT in NS 99 ML IV SCH (12:46)
[2016-12-06] MEDS ORDERED: D50W SYRINGE IV PRN (12:46)
[2016-12-06] MEDS ORDERED: NS 1,000 ML IV SCH (12:46)
[2016-12-06] MEDS ORDERED: SODIUM BICARBONATE 8.4% 50 MEQ in D5W 250 ML IV PRN (12:46)
[2016-12-06] MEDS ORDERED: SODIUM BICARBONATE 8.4% 100 MEQ in D5W 500 ML IV PRN (12:46)
[2016-12-06] MEDS ORDERED: POTASSIUM CHLORIDE 40 MEQ in NS 250 ML IV PRN (12:46)
[2016-12-06] MEDS ORDERED: HUMULIN R IV ONE (12:46)
[2016-12-06] MEDS ORDERED: D5 1/2 NS 1,000 ML ONE (12:54)
[2016-12-06 13:29] LABS: CALCIUM 7.8 mg/dL (8.8-10.2); MAGNESIUM 1.7 mg/dL (1.5-2.7); POTASSIUM 4.9 mmol/L (3.5-5.1)
--- NOTE | 2016-12-06 13:52 | PROGRESS NOTE ---
DATE: 12/06/2016 SUBJECTIVE: This patient is alert and oriented today. We talked about her diabetes management yesterday, and she told me that she takes 12 units of Lantus in the morning. She also told me that the blood sugar in the morning is around 350 and hemoglobin A1c here is 11.2. Yesterday, she had 2 episodes of hypoglycemia that I cannot explain because she was not getting any long-acting or short-acting insulin. I am not sure, but I am afraid that this patient is taking insulin by herself. This patient today is in recurrent DKA, I will put her again on an insulin drip and I will transfer this patient to the ICU for better care. OBJECTIVE: Vital Signs: Temperature 98.5, pulse 84, respiratory rate 16, blood pressure 116/55, oxygen saturation 90% on room air. HEENT: Head normocephalic. No trauma. PERRLA. Neck: Supple. No JVD. No masses. Central trachea. Chest: Clear to auscultation. No wheezing. No rales. Abdomen: Soft, nontender, nondistended. No hepatosplenomegaly. Cardiovascular: RRR, 1/6 systolic murmur. Extremities: No edema. No clubbing. No cyanosis. Neurological: The patient is alert. She is oriented x3. No focal neurological deficits. LABORATORY: WBC 11.6, hemoglobin 10.4, hematocrit 34.6, platelets 219. Sodium 130, potassium 6.1, chloride 92, bicarbonate 9, BUN 45, creatinine 6.9, glucose 637, calcium 8. ASSESSMENT AND PLAN: 1. Diabetic ketoacidosis. Today, this patient's anion gap is high, she has recurrent diabetic ketoacidosis. I will transfer this patient to the ICU. I will start this patient on an insulin drip and diabetes ketoacidosis protocol. 2. Hyperkalemia, she will have dialysis today. Nephrology is on board. The potassium is going to be reduced with dialysis. 3. Seizure disorder. This patient had an episode of seizure disorder 3 days ago. Today she is getting an EEG. Her Keppra was increased from 250 twice a day to 500 twice a day. Will monitor. 4. End-stage renal disease on hemodialysis. Today she will have hemodialysis. 5. Possible urinary tract infection. Continue with ceftriaxone. 6. Reported upper gastrointestinal bleed. This is likely secondary to retching. Hemoglobin and hematocrit decreased, but this is likely secondary to IV fluids and I will continue to monitor. 7. Hypertension stable. 8. Gastroparesis. This patient is tolerating food. 9. Type 2 diabetes uncontrolled. Hemoglobin A1c is 11.2. Apparently, this patient is using 12 units of Lantus daily and her blood sugar in the morning is around 350. 10. History of medical noncompliance. This is why I believe this patient is here. I do not think she is taking her medications as prescribed. 11. Deep vein thrombosis prophylaxis. Continue with sequential compression devices. cc: Logan Abraham MD
[2016-12-06] MEDS ORDERED: NS 1,000 ML ONE (13:54)
--- NOTE | 2016-12-06 15:45 | PROGRESS NOTE ---
DATE: 12/06/2016 LOCATION: ICU bed 15. SUBJECTIVE: Ms. Chaparro had EEG earlier today showing very mild generalized slowing, but no definite epileptiform discharge. She may have had metabolic explanation for the EEG findings, particularly blood sugar. The EEG did not show definite evidence of seizure. She is undergoing dialysis now. I do not have any new suggestion from neurologic standpoint today. Thanks for asking me to see Ms. Chaparro. cc: Dee Ennis III, MD
[2016-12-06 16:25] LABS: CALCIUM 7.7 mg/dL (8.8-10.2); MAGNESIUM 1.6 mg/dL (1.5-2.7); POTASSIUM 3.4 mmol/L (3.5-5.1)
[2016-12-06] MEDS: D50W SYRINGE IV PRN (17:56)
--- NOTE | 2016-12-06 18:21 | EEG REPORT ---
DATE: 12/06/2016 COMMENT: This is a digitally recorded EEG on a 36-year-old patient with a period of altered awareness, possible focal features, question of partial seizure. FINDINGS: During waking, low and medium amplitude 9-10 Hz posterior rhythm is present symmetrically with uncertain reactivity to eye opening. Background contains polymorphic and rhythmic theta frequencies over the frontal and central regions symmetrically. Drowsing occurred with attenuation of the posterior rhythm and appearance of more generalized slowing. Stage 2 sleep was not recorded. There is occasional rhythmic slowing, but no associated epileptiform discharge. INTERPRETATION: Abnormal EEG because of mild generalized slowing. CORRELATION: This is indicative of a diffuse encephalopathy and is nonspecific. The absence of epileptiform discharges on a single EEG does not exclude a clinical diagnosis of seizures. cc: Dee Ennis III, MD
[2016-12-06] MEDS: REMERON PO SCH (20:27)
[2016-12-06] MEDS: PRAVACHOL PO SCH (20:28)
[2016-12-06] MEDS: D5 1/2 NS 1,000 ML IV SCH (20:32)
[2016-12-06 21:01] LABS: MAGNESIUM 1.6 mg/dL (1.5-2.7); POTASSIUM 3.8 mmol/L (3.5-5.1)
[2016-12-06] MEDS: MAGNESIUM SULFATE 2 GM/S.W.I. 2 GM/50 ML IVPB IV PRN ×2 (21:54→21:57)
[2016-12-06] MEDS: POTASSIUM CHLORIDE 20 MEQ in NS 100 ML IV PRN (22:03)
[2016-12-07 01:21] LABS: CALCIUM 8.3 mg/dL (8.8-10.2); MAGNESIUM 2.3 mg/dL (1.5-2.7); POTASSIUM 3.7 mmol/L (3.5-5.1)
[2016-12-07] MEDS: POTASSIUM CHLORIDE 20 MEQ in NS 100 ML IV PRN ×2 (01:53→05:26)
[2016-12-07 04:11] LABS: MANUAL DIFF NEEDED? NO
[2016-12-07 04:15] LABS: BASO% 0.9 % (0.0-0.8); EOS% 2.2 % (0.0-10.0); HEMOGLOBIN 10.4 g/dL (12.0-16.0); IMM GRAN# 0.03 X1000 (0.0-0.04); IMM GRAN% 0.3 % (0.0-0.5); LYMPH# 2.01 X1000 (1.2-3.4); LYMPH% 21.8 % (20.5-51.1); MCH 30.3 PG (27-31); MCHC 32.5 g/dL (33-37); MCV 93.3 FL (81-99); MONO# 1.39 X1000 (0.11-0.59); NEUT% 59.8 % (42.2-75.2); PLT 234 X1000 (130-400); RBC 3.43 XMIL (4.2-5.4)
[2016-12-07 04:34] LABS: CALCIUM 8.3 mg/dL (8.8-10.2); MAGNESIUM 2.2 mg/dL (1.5-2.7)
[2016-12-07] MEDS: D5 1/2 NS 1,000 ML IV SCH (05:26)
[2016-12-07] MEDS: ROCEPHIN 1 GM/NS 1 GM/50 ML IVPB IV SCH (08:00)
[2016-12-07] MEDS: NORCO-7.5 PO PRN (08:21)
[2016-12-07] MEDS: CARDIZEM CD PO SCH (08:21)
[2016-12-07] MEDS: NORVASC PO SCH (08:21)
[2016-12-07] MEDS: PROZAC PO SCH (08:21)
[2016-12-07] MEDS: KEPPRA PO SCH ×2 (08:22→20:03)
[2016-12-07] MEDS: ZOFRAN IV PRN (08:22)
[2016-12-07] MEDS: LOPRESSOR PO SCH ×2 (08:22→20:03)
[2016-12-07] MEDS ORDERED: LANTUS SUBQ SCH (09:00)
--- NOTE | 2016-12-07 09:30 | PROGRESS NOTE ---
DATE: 12/07/2016 SUBJECTIVE: She has ongoing nausea today. No vomiting. No shortness of breath. OBJECTIVE: Vital Signs: Blood pressure 161/84, heart rate 89, respirations 16, afebrile. General: She is a young woman lying flat in bed. No distress. Skin: Warm and dry. HEENT: Conjunctivae are pink. Heart: Regular. Lungs: Have equal breath sounds. No crackles. Abdomen: Soft, nontender. Bowel sounds are present. Extremities: Have no edema, clubbing, or cyanosis. Laboratory Data: Sodium 139, potassium 4, chloride 102, bicarbonate 24, BUN 19, creatinine 4.5. IMPRESSION: 1. End-stage kidney disease. Plan dialysis tomorrow. 2. Diabetic ketoacidosis. Her anion gap is closed so I would expect she will be able to come off of her intravenous insulin today. 3. Volume status. I will change her D5 half-normal saline over to D10. I would prefer that we use this fluid if required for management of her hypoglycemia. cc: Hardy Kay MD
[2016-12-07] MEDS ORDERED: INSULIN PEN NEEDLES ONE (09:48)
[2016-12-07] MEDS: CENTRUM TABLET PO SCH (09:52)
[2016-12-07] MEDS: HUMULIN R SUBQ SCH ×3 (11:03→20:00)
[2016-12-07] MEDS: PROTONIX IV SCH ×2 (11:04→23:04)
[2016-12-07] MEDS: SODIUM CHLORIDE 0.9% INJ SCH ×2 (11:04→23:04)
--- NOTE | 2016-12-07 13:06 | PROGRESS NOTE ---
DATE: 12/07/2016 SUBJECTIVE: This patient states that she is feeling better. She is complaining of mild epigastric pain. She is tolerating p.o. and the anion gap is closed, so I will put this patient on 10 units of Lantus, which is the amount of insulin that she received during a 24 hour period, and I will continue with sliding scale insulin. I will stop the insulin drip and I will continue monitoring this patient in the ICU. Probably tomorrow, this patient will be dialyzed. OBJECTIVE: Vital Signs: Temperature 98.5 degrees, pulse 79, respiratory rate 16, blood pressure 134/74, oxygen saturation 97% on room air. HEENT: Head normocephalic. No trauma. PERRLA. Neck: Supple. No JVD. No masses. Central trachea. Chest: Clear to auscultation. No wheezing. No rales. Abdomen: Soft. Mild tenderness to palpation at the level of the epigastric area. Extremities: No edema. No clubbing. No cyanosis. Cardiovascular: RRR, 1 out of 6 systolic murmur. Neurological: The patient is alert. She is oriented x3. No focal neurological deficits. She has generalized weakness. LABORATORY: WBC 9.2, hemoglobin 10.4, hematocrit 32, platelets 234,000. Sodium 139, potassium 4, chloride 102, bicarbonate 24, BUN 19, creatinine 4.5, glucose 86, calcium 8.3. ASSESSMENT AND PLAN: 1. Diabetic ketoacidosis. Anion gap is closed. I will stop the insulin drip and start this patient on Lantus 10, and I will continue monitoring this patient for 1 day in the ICU. 2. Hyperkalemia. The potassium is normal today. 3. Seizure disorder. This patient had an episode of seizure disorder a few days ago. She already had an EEG. Her Keppra level at admission was low. Dr. Ennis is following this patient. Her Keppra was increased from 250 mg twice a day to 500 mg twice a day. We will continue to monitor. 4. End-stage renal disease, on hemodialysis. Tomorrow she will have dialysis. 5. Possible urinary tract infection. Continue with ceftriaxone. 6. Reported upper gastrointestinal bleed. This is likely secondary to retching. Hemoglobin and hematocrit have been stable. 7. Hypertension, stable. 8. Gastroparesis. This patient is tolerating food. 9. Type 2 diabetes, uncontrolled. The hemoglobin A1c is 11.2. 10. History of medical noncompliance. This is why I believe this patient is here. I do not think she is taking her medications as prescribed. 11. Deep vein thrombosis prophylaxis. Continue with SCDs. CRITICAL CARE TIME: 35 minutes. cc: Logan Abraham MD
--- NOTE | 2016-12-07 14:50 | PROGRESS NOTE ---
DATE: 12/07/2016 LOCATION: ICU bed 15. Ms. Chaparro is awake and alert. She has not had any more clinically recognizable seizures. Her levetiracetam level from admission came back subtherapeutic on 250 mg b.i.d. Dose is now 500 mg b.i.d. We are managing with low-dose levetiracetam because of her renal failure. We can follow levels and make sure level is therapeutic. I do not have any other suggestion today. Thanks for allowing me to follow Ms. Chaparro. cc: MD GARY Flores III
[2016-12-07] MEDS: D50W SYRINGE IV PRN (15:32)
[2016-12-07] MEDS: REMERON PO SCH (20:02)
[2016-12-07] MEDS: PRAVACHOL PO SCH (20:02)
[2016-12-07 21:30] LABS: CALCIUM 8.3 mg/dL (8.8-10.2); POTASSIUM 4.9 mmol/L (3.5-5.1)
[2016-12-08] MEDS: NORCO-7.5 PO PRN ×2 (00:59→17:18)
[2016-12-08] MEDS: ZOFRAN IV PRN ×3 (01:04→17:19)
[2016-12-08] MEDS: D50W SYRINGE IV PRN ×2 (01:10→06:12)
[2016-12-08 05:45] LABS: MANUAL DIFF NEEDED? NO
[2016-12-08 05:55] LABS: BASO% 0.5 % (0.0-0.8); EOS# 0.16 X1000 (0.0-0.7); EOS% 1.7 % (0.0-10.0); HEMATOCRIT 33.8 % (37.0-47.0); HEMOGLOBIN 10.5 g/dL (12.0-16.0); IMM GRAN# 0.02 X1000 (0.0-0.04); IMM GRAN% 0.2 % (0.0-0.5); LYMPH# 1.09 X1000 (1.2-3.4); LYMPH% 11.3 % (20.5-51.1); MCH 29.4 PG (27-31); MCHC 31.1 g/dL (33-37); MCV 94.7 FL (81-99); MONO# 1.25 X1000 (0.11-0.59); MPV 10.1 FL (7.4-10.4); NEUT% 73.3 % (42.2-75.2); PLT 304 X1000 (130-400); RBC 3.57 XMIL (4.2-5.4)
[2016-12-08] MEDS: HUMULIN R SUBQ SCH ×4 (06:11→20:51)
[2016-12-08] MEDS ORDERED: HEPARIN IV PRN (07:39)
[2016-12-08] MEDS ORDERED: TIGHT: 0.2 ML/HR MISC PRN (07:39)
[2016-12-08] MEDS ORDERED: NS 2,000 ML MISC PRN (07:39)
[2016-12-08] MEDS ORDERED: HEPARIN ONE (08:03)
[2016-12-08] MEDS ORDERED: NS 2,000 ML ONE (08:03)
[2016-12-08] MEDS: PROZAC PO SCH (08:20)
[2016-12-08] MEDS ORDERED: LANTUS SUBQ SCH (08:20)
[2016-12-08] MEDS: CENTRUM TABLET PO SCH (08:20)
[2016-12-08] MEDS: KEPPRA PO SCH ×2 (08:20→20:53)
--- NOTE | 2016-12-08 08:21 | PROGRESS NOTE ---
DATE: 12/08/2016 Ms. Chaparro is awake and alert. She seems a little bit brighter today. She has not had definite clinical seizure recognized. We reviewed discussion of her levetiracetam dose and recent low level. I'm optimistic that we can keep good seizure control with levetiracetam monotherapy if we find the right dose. Thanks for asking me to see Ms. Chaparro. cc: Dee Ennis III, MD
[2016-12-08 08:49] LABS: ALBUMIN 3.4 g/dL (3.5-5.0); CALCIUM 8.4 mg/dL (8.8-10.2)
[2016-12-08] MEDS ORDERED: ZOFRAN ONE (08:57)
[2016-12-08] MEDS: ATIVAN IV PRN (09:20)
[2016-12-08] MEDS ORDERED: D50W SYRINGE ONE (09:20)
[2016-12-08] MEDS ORDERED: ATIVAN ONE (09:26)
--- NOTE | 2016-12-08 10:42 | PROGRESS NOTE ---
DATE: 12/08/2016 SUBJECTIVE: Patient currently resting in bed. She states that she has been able to eat overnight without difficulty. No nausea or vomiting this morning. OBJECTIVE: Vital Signs: Temperature 97.8 degrees, pulse 79, respiratory rate 13, blood pressure 129/86. Intake 1.5 L. Output 150 mL. General: Middle-aged female resting in bed. No acute distress. HEENT: Normocephalic, atraumatic. Oral mucosa is moist. Neck: Supple. No JVD noted. Cardiovascular: Regular rate and rhythm. No murmur or gallop is appreciated. Pulmonary: She has equal excursion. She is clear bilaterally. There is no increased work of breathing. Abdomen: Soft, with positive bowel sounds. Extremities: No clubbing, cyanosis or edema. Integumentary: Skin is warm and dry without rash or lesion. LAB DATA: WBC of 9.6, hemoglobin 10.5, sodium 140, potassium 5.0, CO2 20, creatinine 5.7. Her glucose has ranged anywhere from 50-212. Calcium 8.4, phosphorus 3.6, and albumin 3.4. ASSESSMENT AND PLAN: 1. End-stage renal disease management. Today is her routine dialysis day. We will plan to dialyze on a 2 K bath/UF. Has tolerated 4 hour treatment. 2. Diabetic ketoacidosis followed by primary. 3. Fluid volume. We would request that D10 IVF be used if needed for treatment of hypoglycemia instead of D5 half-normal saline secondary to her fluid volume and her dialysis requirements. Seen, data reviewed, discussed with Carl Fernandez on 12/08/16. I agree with the above assessment and plan of care. rg Dictated by MANNY Ordonez for Hardy Kay MD cc: Hardy Kay [facility]
[2016-12-08] MEDS: PROTONIX IV SCH ×2 (12:44→22:30)
[2016-12-08] MEDS: CARDIZEM CD PO SCH (12:44)
[2016-12-08] MEDS: SODIUM CHLORIDE 0.9% INJ SCH (12:44)
[2016-12-08] MEDS: LOPRESSOR PO SCH ×2 (12:45→20:55)
[2016-12-08] MEDS: ROCEPHIN 1 GM/NS 1 GM/50 ML IVPB IV SCH (12:45)
[2016-12-08] MEDS: NORVASC PO SCH (12:45)
[2016-12-08] MEDS: EPOGEN SUBQ SCH (13:47)
--- NOTE | 2016-12-08 14:32 | PROGRESS NOTE ---
DATE: 12/08/2016 SUBJECTIVE: This patient just came back from dialysis. She was alert and oriented x3. She was answering all my questions. This patient has been having hypoglycemia even though the dose of Lantus is 10 and she was getting at home 12. I decreased the dose of Lantus to 5 and I will monitor her blood sugar for the next 24 hours. Apparently also this patient had some kind of seizure like activity during dialysis and probably also in the ICU. For now I will not change any treatment. Neurology Department is following this patient. OBJECTIVE: Vital Signs: Temperature 98.7 degrees, pulse 92, respiratory rate 19, blood pressure 129/93, O2 saturation 99 on room air. HEENT: Head normocephalic. No trauma. PERRLA. Neck: Supple. No JVD. No masses. Central trachea. Chest: Clear to auscultation. No wheezing. No rales. Abdomen: Soft, mild tenderness to palpation in the epigastric area. Extremities: No edema. No clubbing. No cyanosis. Cardiovascular: RRR. 1/6 systolic murmur. Neurological: The patient is alert. She is oriented x3. No focal neurological deficits. She has generalized weakness. LABORATORY: WBC 9.6, hemoglobin 10.5, hematocrit 33.8, platelets 304,000. Sodium 140, potassium 5, chloride 102, bicarbonate 20, BUN 21, creatinine 5.7, glucose 53, calcium 8.4, albumin 3.4. ASSESSMENT AND PLAN: 1. Diabetic ketoacidosis resolved. 2. Hypoglycemia. This patient has been having episodes of hypoglycemia even though she has not received any sliding scale insulin and the dose of Lantus is 10. She used to be at home on 12. I will decrease the dose of Lantus to 5 and I will monitor this patient for the next 24 hours to see how the blood sugar behaves. 3. Seizure disorder. Apparently she had an episode of seizure disorder today, maybe 2. When I evaluated this patient she was completely alert and oriented x3. Dr. Ennis is following this patient. I will continue to monitor. 4. Hyperkalemia resolved. 5. End-stage renal disease, status post hemodialysis today. We will continue following the recommendation of Nephrology Department. 6. Possible urinary tract infection. Continue with ceftriaxone. 7. Reported upper GI bleed. This is likely secondary to retching. Hemoglobin and hematocrit has been stable. 8. Hypertension stable. 9. Gastroparesis. This patient is tolerating food. 10. Type 2 diabetes uncontrolled. The hemoglobin A1c is 11.2, and like I mentioned before, I will adjust the Lantus. 11. History of medical noncompliance. I do believe that this is why this patient is here. I do not think she is taking her medications as prescribed. 12. DVT prophylaxis. Continue with SCDs. CRITICAL CARE TIME: 35 minutes. cc: Logan Abraham MD
[2016-12-08] MEDS: PRAVACHOL PO SCH (20:52)
[2016-12-08] MEDS: REMERON PO SCH (20:53)
[2016-12-09 06:29] LABS: ALBUMIN 3.2 g/dL (3.5-5.0); CALCIUM 8.3 mg/dL (8.8-10.2); POTASSIUM 5.1 mmol/L (3.5-5.1)
[2016-12-09] MEDS: HUMULIN R SUBQ SCH ×4 (07:14→21:55)
[2016-12-09] MEDS: ROCEPHIN 1 GM/NS 1 GM/50 ML IVPB IV SCH (09:04)
[2016-12-09] MEDS: CARDIZEM CD PO SCH (09:04)
[2016-12-09] MEDS: PROZAC PO SCH (09:04)
[2016-12-09] MEDS: NORVASC PO SCH (09:05)
[2016-12-09] MEDS: KEPPRA PO SCH ×2 (09:05→22:02)
[2016-12-09] MEDS: LOPRESSOR PO SCH ×2 (09:05→21:55)
[2016-12-09] MEDS: LANTUS SUBQ SCH (09:15)
[2016-12-09] MEDS: CENTRUM TABLET PO SCH (09:15)
--- NOTE | 2016-12-09 10:58 | PROGRESS NOTE ---
DATE: 12/09/2016 SUBJECTIVE: This patient states that she is feeling better. She has severe weakness. This patient has been having hypoglycemia even though the dose of Lantus has been low. I will start this patient on Lantus 5 today. She has been getting Lantus 12 at home. I will monitor 1 more day this patient in the ICU to see how the blood sugar behaves and then I will transfer this patient probably to the CIC unit for continued monitoring. This patient is tolerating p.o. Physical therapy is on board. She denies any nausea, vomiting. No diarrhea. No constipation. OBJECTIVE: Vital Signs: Temperature 98.4 degrees, pulse 82, respiratory rate 9, blood pressure 129/86, oxygen saturation 98 on room air. HEENT: Head normocephalic. No trauma. PERRLA. Neck: Supple. No JVD. No masses. Central trachea. Chest: Clear to auscultation. No wheezing. No rales. Abdomen: Soft. Mild tenderness to palpation in the epigastric area. Extremities: No edema. No clubbing. No cyanosis. Neurological: The patient is alert and oriented x3. No focal neurological deficits. LABORATORY: Sodium 136, potassium 5.1, chloride 98, bicarbonate 27, BUN 16, creatinine 4.7, glucose 363, calcium 8.3. ASSESSMENT AND PLAN: 1. Diabetic ketoacidosis, resolved. I will continue this patient on Lantus 5 and I will monitor the blood sugar for the next 24 hours. If everything is okay this patient can probably be transferred to the CIC unit or medical floor. 2. Hypoglycemia. This patient has been having episodes of hypoglycemia even though she has not received any sliding scale insulin. I will start this patient on Lantus 5 and I will monitor. 3. Seizure disorder. Apparently this patient had an episode of seizure disorder yesterday, maybe 2. Today this patient is completely alert and oriented x3. Dr. Ennis is following this patient. We will continue to monitor. 4. Hyperkalemia, resolved. 5. End-stage renal disease. She is getting dialysis. The last one was done yesterday. Nephrology department is following. 6. Possible urinary tract infection. Continue with ceftriaxone. 7. Reported upper gastrointestinal bleed. This is likely secondary to retching. Hemoglobin and hematocrit have been stable. 8. Hypertension, stable. 9. Gastroparesis. This patient is tolerating food. 10. Type 2 diabetes, uncontrolled. The hemoglobin A1c is 11.2. 11. History of medical noncompliance. I do believe that this is why this patient is here. I do not think she is taking her medications as prescribed. 12. Physical deconditioning. Continue with physical therapy. 13. Deep vein thrombosis prophylaxis. Continue with SCDs. CRITICAL CARE TIME: 35 minutes. cc: Logan Abraham MD
[2016-12-09] MEDS: PROTONIX IV SCH (12:40)
[2016-12-09] MEDS: SODIUM CHLORIDE 0.9% INJ SCH (12:41)
--- NOTE | 2016-12-09 14:53 | PROGRESS NOTE ---
DATE: 12/09/2016 SUBJECTIVE: The patient is currently resting in bed. She is in no acute distress. HEENT: Normocephalic. Atraumatic. Oral mucosa moist. Neck: Supple. No JVD. Cardiovascular: Regular rate and rhythm without murmur or gallop. Pulmonary: Equal excursion. She is clear bilaterally. Abdomen: Soft with positive bowel sounds. : Not inspected. She has hemodialysis assist. Extremities: No clubbing, cyanosis or edema. Positive thrill to LUE fistula. Integumentary: Skin is warm and dry. LABORATORY DATA: Sodium 136, potassium 5.1, CO2 27, BUN 16, creatinine 4.7, calcium 8.3, albumin 3.2. ASSESSMENT AND PLAN: 1. ESRD management. Plan to HD tomorrow as per her routine. Check labs in the a.m. and determine HD bath. 2. DKA. Resolved. No longer on insulin drip. Followed by primary team. N/V better. rg 3. Electrolytes, acid base balance. In target. Check labs in a.m. 4. IV access. She has little options for IV. I changed her abx to ceftazadime so we can dose after HD. Should only need IV in emergency. rg Seen, data reviewed, discussed with Carl Fernandez on 12/09/16. I agree with the above assessment and plan of care. rg Dictated by MANNY Ordonez for Hardy Kay MD cc: Hardy Kay MD [facility]
[2016-12-09] MEDS: REMERON PO SCH (21:55)
[2016-12-09] MEDS: PRAVACHOL PO SCH (21:55)
[2016-12-10] MEDS: PROTONIX IV SCH ×3 (00:54→22:51)
[2016-12-10] MEDS: SODIUM CHLORIDE 0.9% INJ SCH ×2 (00:54→22:50)
[2016-12-10 06:03] LABS: MANUAL DIFF NEEDED? NO
[2016-12-10 06:23] LABS: BASO% 1.5 % (0.0-0.8); EOS# 0.09 X1000 (0.0-0.7); EOS% 1.5 % (0.0-10.0); HEMATOCRIT 30.7 % (37.0-47.0); HEMOGLOBIN 9.5 g/dL (12.0-16.0); IMM GRAN# 0.04 X1000 (0.0-0.04); IMM GRAN% 0.7 % (0.0-0.5); LYMPH# 1.24 X1000 (1.2-3.4); LYMPH% 20.2 % (20.5-51.1); MCH 30.1 PG (27-31); MCHC 30.9 g/dL (33-37); MCV 97.2 FL (81-99); MONO# 1.02 X1000 (0.11-0.59); MONO% 16.6 % (1.7-9.3); NEUT% 59.5 % (42.2-75.2); PLT 329 X1000 (130-400); RBC 3.16 XMIL (4.2-5.4)
[2016-12-10] MEDS: HUMULIN R SUBQ SCH ×5 (06:25→20:05)
[2016-12-10] MEDS: ZOFRAN IV PRN (06:26)
[2016-12-10 06:41] LABS: POTASSIUM 5.7 mmol/L (3.5-5.1)
[2016-12-10] MEDS ORDERED: NS 2,000 ML MISC PRN (07:20)
[2016-12-10] MEDS ORDERED: TIGHT: 0.2 ML/HR MISC PRN (07:20)
[2016-12-10] MEDS ORDERED: HEPARIN IV PRN (07:20)
[2016-12-10] MEDS ORDERED: HEPARIN ONE (08:27)
[2016-12-10] MEDS ORDERED: NS 2,000 ML ONE (08:27)
[2016-12-10] MEDS: LANTUS SUBQ SCH (08:34)
--- NOTE | 2016-12-10 10:27 | PROGRESS NOTE ---
DATE: 12/10/2016 SUBJECTIVE: She has not had any further nausea or vomiting. No shortness of breath today. OBJECTIVE: Vital Signs: Blood pressure 137/91, heart rate 97, respirations 12, temperature 99.6 degrees. General: She is a young woman in no distress. Skin: Warm and dry. Eyes: Conjunctivae are pink. Neck: Neck veins are not distended. Heart: Regular. Lungs: Have equal breath sounds. No crackles or wheezes. Abdomen: Soft, nontender. Bowel sounds present. Extremities: Have no edema, clubbing, or cyanosis. LABORATORY DATA: Sodium 133, potassium 5.7, chloride 97, bicarbonate 22, BUN 27, creatinine 6.5, hemoglobin 10.5. IMPRESSION: 1. End-stage kidney disease. She will have her routine dialysis today using a 2 potassium bath for 3-1/2 hours. We will use her outpatient dry weight. 2. Electrolytes are acceptable. 3. Acid base acceptable. Anion gap is improved. 4. Anemia: Hemoglobin has fallen modestly. We will dose with erythropoietin times one. 5. Hypertension in target. cc: Hardy Kay MD
[2016-12-10] MEDS: TAZIDIME 2 GM/NS 2 GM/100 ML IVPB IV SCH (13:27)
[2016-12-10] MEDS: EPOGEN SUBQ SCH (13:28)
[2016-12-10] MEDS: CENTRUM TABLET PO SCH (13:28)
[2016-12-10] MEDS: KEPPRA PO SCH ×2 (13:28→20:05)
[2016-12-10] MEDS: CARDIZEM CD PO SCH (13:28)
[2016-12-10] MEDS: NORVASC PO SCH (13:28)
[2016-12-10] MEDS: PROZAC PO SCH (13:28)
[2016-12-10] MEDS: LOPRESSOR PO SCH ×3 (13:29→20:05)
[2016-12-10] MEDS: PRAVACHOL PO SCH (20:05)
[2016-12-10] MEDS: REMERON PO SCH (20:05)
[2016-12-11] MEDS: HUMULIN R SUBQ SCH ×6 (04:44→22:40)
[2016-12-11 05:59] LABS: ALBUMIN 3.2 g/dL (3.5-5.0); CALCIUM 7.8 mg/dL (8.8-10.2); POTASSIUM 4.9 mmol/L (3.5-5.1)
[2016-12-11] MEDS: CARDIZEM CD PO SCH (08:39)
[2016-12-11] MEDS: LOPRESSOR PO SCH ×2 (08:39→20:39)
[2016-12-11] MEDS: NORVASC PO SCH (08:39)
[2016-12-11] MEDS: KEPPRA PO SCH ×3 (08:39→20:12)
[2016-12-11] MEDS: PROZAC PO SCH (08:39)
[2016-12-11] MEDS: CENTRUM TABLET PO SCH (08:39)
[2016-12-11] MEDS: LANTUS SUBQ SCH (08:40)
[2016-12-11] MEDS ORDERED: LANTUS SUBQ ONE (11:18)
[2016-12-11] MEDS: SODIUM CHLORIDE 0.9% INJ SCH ×2 (11:48→22:41)
[2016-12-11] MEDS: PROTONIX IV SCH ×2 (11:48→22:41)
--- NOTE | 2016-12-11 12:08 | PROGRESS NOTE ---
DATE: 12/11/2016 SUBJECTIVE: The patient is without any new complaints today. States she is feeling okay. OBJECTIVE: Vital Signs: Temperature 98, pulse 92, respiratory 15, blood pressure 116/74, satting 99% on room air. General: Patient is awake, alert. No acute distress. She is pleasant to talk with. HEENT: Normocephalic. Neck: Supple. Cardiovascular: Regular rate. Chest: Relatively clear. Abdomen: Soft. Extremities: Moves all extremities. Neurologic: No changes. DIAGNOSTIC DATA: Sodium 131, creatinine 4.5, glucose greater than 500. Albumin 3.2. Calcium 7.8. ASSESSMENT: 1. Hypocalcemia. 2. Chronic renal failure on hemodialysis. 3. Moderate elevated blood sugars. The patient's A1c is 11.5, chronically. We will increase her Lantus. We will change her patterned Accu-Cheks to q.4 and continue to follow. Hopefully can move to the floor if her blood sugars improve. cc: Wood Ruiz MD
[2016-12-11] MEDS: ZOFRAN IV PRN (12:38)
[2016-12-11] MEDS: D50W SYRINGE IV PRN (15:40)
[2016-12-11] MEDS: REMERON PO SCH ×2 (19:55→20:12)
[2016-12-11] MEDS: PRAVACHOL PO SCH ×2 (19:56→20:12)
[2016-12-11] MEDS: NORCO-7.5 PO PRN (20:41)
[2016-12-12] MEDS: HUMULIN R SUBQ SCH ×6 (02:44→22:43)
[2016-12-12 05:36] LABS: ALBUMIN 3.2 g/dL (3.5-5.0); CALCIUM 8.5 mg/dL (8.8-10.2); POTASSIUM 4.1 mmol/L (3.5-5.1)
[2016-12-12] MEDS: KEPPRA PO SCH ×2 (08:48→21:42)
[2016-12-12] MEDS: PROZAC PO SCH (08:48)
[2016-12-12] MEDS: LOPRESSOR PO SCH ×3 (08:48→21:43)
[2016-12-12] MEDS: CENTRUM TABLET PO SCH (08:48)
[2016-12-12] MEDS: NORVASC PO SCH (08:48)
[2016-12-12] MEDS: CARDIZEM CD PO SCH (08:48)
[2016-12-12] MEDS: LANTUS SUBQ SCH (08:49)
[2016-12-12] MEDS: TAZIDIME 2 GM/NS 2 GM/100 ML IVPB IV SCH (10:36)
[2016-12-12] MEDS: PROTONIX IV SCH (11:51)
[2016-12-12] MEDS: SODIUM CHLORIDE 0.9% INJ SCH (11:51)
[2016-12-12] MEDS: ZOFRAN IV PRN (13:08)
[2016-12-12] MEDS: NORCO-7.5 PO PRN (13:08)
[2016-12-12] MEDS ORDERED: LACTULOSE PO PRN (14:13)
--- NOTE | 2016-12-12 14:34 | PROGRESS NOTE ---
DATE: 12/12/2016 SUBJECTIVE: Patient without any new complaints. She denies any chest pain, palpitations. States that she is not very hungry. OBJECTIVE: Vital Signs: Temperature 98 degrees, pulse 83, respiratory rate 18, BP 121/77, satting 98% on room air. General: Patient is awake, alert, oriented. She is currently in no respiratory distress. She is ambulating the ICU with physical therapy without any difficulty. HEENT: Normocephalic. Atraumatic. LUDWIG Neck: Supple. Cardiovascular: Regular rate. Chest: Relatively clear. Abdomen: Soft, nondistended. Extremities: Moves all extremities well. Neurologic: There are no focal neurological changes. Skin: Warm, dry. No rashes. ASSESSMENT: 1. Diabetes. Currently on insulin with frequent hypoglycemic and hyperglycemic episodes. 2. End-stage renal failure on hemodialysis. 3. Hyperkalemia resolved. 4. Hyponatremia resolved. Mild protein calorie malnutrition. 5. Chronic gastroparesis secondary to poor home diabetic control. PLAN: We will transfer patient out of the ICU to the regular floor. We will continue to follow. Hopefully home in the next 1-2 days. Unfortunately however, given her past history. She has a very high chance of readmission due to medical noncompliance. cc: Wood Ruiz MD
[2016-12-12] MEDS: ATIVAN IV PRN (17:00)
[2016-12-12] MEDS: MIRALAX PO SCH (17:10)
[2016-12-12] MEDS: REGLAN PO SCH ×2 (18:44→21:42)
[2016-12-12] MEDS: REMERON PO SCH (21:42)
[2016-12-12] MEDS: PRAVACHOL PO SCH (21:42)
[2016-12-13] MEDS: SODIUM CHLORIDE 0.9% INJ SCH ×2 (00:47→23:51)
[2016-12-13] MEDS: PROTONIX IV SCH ×3 (00:47→23:51)
[2016-12-13] MEDS: HUMULIN R SUBQ SCH ×6 (05:06→20:38)
[2016-12-13] MEDS: REGLAN PO SCH ×3 (05:59→20:33)
[2016-12-13] MEDS ORDERED: NS 2,000 ML MISC PRN (06:50)
[2016-12-13] MEDS ORDERED: HEPARIN IV PRN (06:50)
[2016-12-13] MEDS ORDERED: TIGHT: 0.2 ML/HR MISC PRN (06:50)
[2016-12-13 07:05] LABS: ALBUMIN 3.4 g/dL (3.5-5.0); CALCIUM 8.6 mg/dL (8.8-10.2); POTASSIUM 4.3 mmol/L (3.5-5.1)
[2016-12-13] MEDS ORDERED: INSULIN PEN NEEDLES ONE (07:29)
[2016-12-13] MEDS ORDERED: NS 2,000 ML ONE (08:36)
[2016-12-13] MEDS ORDERED: HEPARIN ONE (08:36)
[2016-12-13] MEDS: KEPPRA PO SCH ×2 (08:44→20:33)
[2016-12-13] MEDS: EPOGEN SUBQ SCH (08:44)
[2016-12-13] MEDS: LANTUS SUBQ SCH (08:44)
--- NOTE | 2016-12-13 12:30 | PROGRESS NOTE ---
DATE: 12/13/2016 TIME SEEN: 0800. SUBJECTIVE: Ms. Chaparro is resting quietly in bed. She is in no acute distress. Her skin is warm and dry. She denies any pain or discomfort. OBJECTIVE: Her most recent vital signs, temperature is 98.1, blood pressure 121 /76, heart rate 85, respirations 14. She is on room air. Last recorded saturation 98%. LABS: She has had 510 in. She has had 200 out. Her most recent labs, her sodium is 142, potassium 4.3, chloride 99, CO2 of 23, BUN 29, creatinine 7.7, glucose 209. Her anion gap is 20. Her calcium is 8.6, phosphorus 2.5, albumin 3.4 her last hemoglobin was 9.5 on the . PHYSICAL EXAM: General: This is a 36-year-old, female. She is resting quietly in bed. She is in no acute distress. Skin: Warm and dry. HEENT: Normocephalic, atraumatic. Conjunctivae pink. She has LUDWIG. Mucous membranes moist. Neck: Supple. Trachea midline. No JVD. Cardiovascular: Regular rate and rhythm. She is without murmur or gallop. Lungs: Clear to auscultation anteriorly. Equal excursion. Abdomen: Soft, nontender. Positive bowel sounds. Genitourinary: Not inspected. Minimal void with dialysis assist. Extremities : No clubbing or cyanosis. Positive thrill to the left upper extremity. Fistula is noted. She continues with tunnel catheter in place. Integumentary: Her skin is warm and dry. Neurological: Alert and oriented x3. ASSESSMENT AND PLAN: 1. End-stage renal disease. Patient is due for her routine dialysis treatment today. She is to be on a 2K bath. We will dialyze her for 3.5 hours. Attempt to pull her to her dry weight. 2. Diabetic ketoacidosis. This continues to have resolved. This is followed by the primary care team. Her nausea and vomiting is much better and she is eating. 3. Electrolytes and acid-base balance. As mentioned, in target. 4. Anemia. This remains stable. Her antibiotics continue to be ceftazidime, which we are currently giving on dialysis, with no indications for need for IV access at this time. I would to thank you for allowing us to follow with this patient. Seen, data reviewed, discussed with Gerri Fitzgerald on 12/13/16. I agree with the above assessment and plan of care. rg Dictated by MANNY Hatch for Hardy Kay MD cc: MANNY Hatch MD [facility]
[2016-12-13] MEDS: D50W SYRINGE IV PRN (13:36)
[2016-12-13 14:52] LABS: ALLEN TEST YES; BE 6.8 mmoll (-3.0-3.0); BLOOD TYPE ARTERIAL; DRAW SITE L RADIAL; METHB 1.7 % (0.0-1.5); PCO2(98.6) 38 mmHg (35-45); SAMPLE BLOOD; SAO2 91.4 % (95.0-100.0); THB 10.4 g/dL (11.5-17.4); pH(98.6) 7.51 (7.35-7.45)
[2016-12-13 14:56] LABS: MODALITY ROOM AIR; PO2(98.6) 46 mmHg (60-100)
--- NOTE | 2016-12-13 16:00 | Diag Imaging Result Document ---
PROCEDURE NAME: HEAD W/O CONTRAST - 12/13/[address]: A CT dose reduction protocol was used. COMPARISON: 07/12/2016. 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 Stable, moderately advanced periventricular white matter hypodensities suggesting microvascular disease. No intracranial mass or hemorrhage. The skull is intact. The sinuses, mastoids, and middle ears are clear. IMPRESSION: No change from prior. [facility]
[2016-12-13] MEDS: PROZAC PO SCH ×2 (16:45→17:51)
[2016-12-13] MEDS: CENTRUM TABLET PO SCH ×2 (16:45→17:52)
[2016-12-13] MEDS: LOPRESSOR PO SCH ×2 (16:46→20:33)
[2016-12-13] MEDS: NORVASC PO SCH ×2 (16:46→17:52)
[2016-12-13] MEDS: MIRALAX PO SCH ×2 (16:46→17:52)
--- NOTE | 2016-12-13 17:14 | PROGRESS NOTE ---
DATE: 12/13/2016 SUBJECTIVE: Patient has no focal complaints. OBJECTIVE: Vital signs: Blood pressure 121/80, heart rate of 91, temperature of 98.1 degrees, respiratory rate of 14. Cardiovascular: Regular rate and rhythm. Pulmonary: Bilateral breath sounds. Clear to auscultation. GI: Soft, nontender, nondistended. Neurologic: She is alert, oriented to time and place but per nurse much more lethargic than she was yesterday without a identifiable cause, she is much worse since this morning and then after dialysis. Apparently she had a seizure yesterday after coming out of the ICU is usually associated with her low blood sugars and she had a sugar that was around 90. OTHER LABORATORY DATA: Blood gas showed a pH is 7.5, pCO2 of 38, PaO2 of 46. Creatinine is up to 7.7 but that was predialysis. Rest of her numbers are pretty unremarkable. PROBLEM LIST: 1. Recent DKA. Her sugars are still very brittle, that has been an issue before, we are continuing her medications, her Lantus and we will follow her sugars closely. 2. Diabetic gastroparesis. She is on Reglan 4 times a day. I think I am going to cut it back to twice a day because she is having some confusion and we will monitor her. 3. End-stage renal. Continue dialysis. 4. Anemia appears to be stable. 5. Metabolic encephalopathy. We will continue to follow very closely. DISPOSITION: Pending multiple issues. cc: Danny Castellanos MD
[2016-12-13] MEDS: CARDIZEM CD PO SCH (17:51)
[2016-12-13] MEDS: PRAVACHOL PO SCH (20:33)
[2016-12-13] MEDS: REMERON PO SCH (20:33)
[2016-12-14] MEDS: HUMULIN R SUBQ SCH ×6 (00:52→20:37)
[2016-12-14 07:04] LABS: HEMATOCRIT 32.7 % (37.0-47.0); HEMOGLOBIN 10.3 g/dL (12.0-16.0); MCH 30.6 PG (27-31); MCHC 31.5 g/dL (33-37); MPV 8.8 FL (7.4-10.4); RBC 3.37 XMIL (4.2-5.4)
[2016-12-14 07:29] LABS: CALCIUM 8.7 mg/dL (8.8-10.2); MAGNESIUM 1.8 mg/dL (1.5-2.7)
[2016-12-14] MEDS: PROZAC PO SCH (08:08)
[2016-12-14] MEDS: REGLAN PO SCH ×2 (08:08→20:38)
[2016-12-14] MEDS: KEPPRA PO SCH ×2 (08:09→20:38)
[2016-12-14] MEDS: CARDIZEM CD PO SCH (08:09)
[2016-12-14] MEDS: LOPRESSOR PO SCH ×2 (08:10→20:39)
[2016-12-14] MEDS: CENTRUM TABLET PO SCH (08:10)
[2016-12-14] MEDS: NORVASC PO SCH (08:10)
[2016-12-14] MEDS: MIRALAX PO SCH (08:11)
[2016-12-14] MEDS: LANTUS SUBQ SCH (08:20)
[2016-12-14] MEDS: TAZIDIME 2 GM/NS 2 GM/100 ML IVPB IV SCH (11:51)
[2016-12-14] MEDS: PROTONIX IV SCH ×2 (11:52→22:48)
[2016-12-14] MEDS: SODIUM CHLORIDE 0.9% INJ SCH (11:52)
[2016-12-14] MEDS ORDERED: LANTUS SUBQ SCH (15:32)
--- NOTE | 2016-12-14 15:42 | PROGRESS NOTE ---
DATE: 12/14/2016 TIME SEEN: 0845. SUBJECTIVE: Ms Chaparro is resting quietly in bed. She denies chest pain, increased work of breathing. Denies nausea or vomiting. OBJECTIVE: Her most recent vital signs, temperature 97.8, blood pressure 122/74 , heart rate 76, respirations 18. She remains on room air. Last recorded saturation is 100%. She has had 120 in. She has had 4 L removed on dialysis. LABS: This a.m. sodium 142, potassium 4, chloride 102, CO2 26, BUN 13, creatinine 5, her glucose is 104, anion gap of 14, calcium 8.7, magnesium 1.8. White count 4.81, hemoglobin 10.3, hematocrit 32.7 with a platelet count of 320,000. PHYSICAL EXAMINATION: General: This is a 36-year-old female. She is currently resting in bed. She is in no acute distress. Skin: Warm and dry. HEENT: Normocephalic, atraumatic. Conjunctiva is pale. She has LUDWIG. Mucous membranes moist. Neck : Supple. Trachea midline. No JVD. Cardiovascular: Regular rate and rhythm. She is without murmur or gallop. Lungs: Clear to auscultation anteriorly. Equal excursion on room air. Abdomen : Soft, round, nontender. Positive bowel sounds. Genitourinary: Not inspected. Minimal void with dialysis assist. Extremities: Have no edema. No clubbing or cyanosis. Fistula to the right upper arm with scarring. This is palpable thrill. Neurological: Alert and oriented x3. ASSESSMENT AND PLAN: 1. End-stage renal disease. Patient is due for her routine dialysis treatment in the a.m. No indications for any intervention at this time. 2. Electrolytes and acid-base balance. These are stable. 3. Anemia. This remains stable. 4. Nausea and vomiting. This has improved. 5. Seizure d/o. Generalized seizures during my visit today. Discussed directly with Dr. Castellanos. He will manage her medications. Move to ICU. rg I would like to thank you for allowing us to follow with this patient. Seen, data reviewed, discussed with Gerri Fitzgerald on 12/14/16. I agree with the above assessment and plan of care. rg Dictated by MANNY Hatch for Hardy Kay MD cc: MANNY Hatch MD [facility]
[2016-12-14] MEDS ORDERED: HUMULIN R SUBQ ONE (15:43)
[2016-12-14] MEDS ORDERED: HUMALOG SUBQ SCH (16:00)
[2016-12-14] MEDS ORDERED: ATIVAN IV ONE (16:09)
[2016-12-14] MEDS ORDERED: KEPPRA 500 MG in NS 100 ML IV ONE (16:10)
--- NOTE | 2016-12-14 16:15 | PROGRESS NOTE ---
DATE: 12/14/2016 SUBJECTIVE: Patient has no focal complaints. OBJECTIVE: Vital signs: Blood pressure 100/64, heart rate is 78, respiratory rate of 20, temperature 97.5 degrees. General: A well-developed female in no acute distress. Cardiovascular: Regular rate and rhythm. Pulmonary: Bilateral breath sounds. Clear to auscultation. GI: Soft, nontender, nondistended. Bowel sounds are positive. LABORATORY DATA: Creatinine 5, otherwise unremarkable. White count 4.8, hemoglobin and hematocrit 10 and 32, platelets of 320,000. PROBLEM LIST: 1. Diabetic ketoacidosis with very reactive brittle diabetes. Today she is hyperglycemic, going to up her Lantus and adjust her sliding scale and we will follow clinically. 2. End-stage renal. Per renal service. 3. Altered mentation. Not clear if this is not a chronic issue for her although right now she is back to her baseline. 4. Gastroparesis. Will continue Reglan and follow. 5. Seizure disorder. Appears to be stable. She is currently on cefazolin, I am not clear exactly why we started. cc: Danny Castellanos MD
[2016-12-14 16:26] LABS: HEMATOCRIT 38.3 % (37.0-47.0); HEMOGLOBIN 11.7 g/dL (12.0-16.0); MCH 29.9 PG (27-31); MCHC 30.5 g/dL (33-37); MPV 9.1 FL (7.4-10.4); RBC 3.91 XMIL (4.2-5.4)
[2016-12-14 16:45] LABS: CALCIUM 8.9 mg/dL (8.8-10.2); POTASSIUM 5.3 mmol/L (3.5-5.1); TOTAL BILIRUBIN 0.27 mg/dL (0.20-1.00); TOTAL PROTEIN 7.9 g/dL (6.3-8.3)
[2016-12-14] MEDS: REMERON PO SCH (20:39)
[2016-12-14] MEDS: PRAVACHOL PO SCH (20:39)
[2016-12-15 05:19] LABS: HEMATOCRIT 32.3 % (37.0-47.0); MCH 30.3 PG (27-31); MCV 97.9 FL (81-99); MPV 9.3 FL (7.4-10.4); RBC 3.3 XMIL (4.2-5.4)
[2016-12-15] MEDS: HUMULIN R SUBQ SCH ×4 (06:34→23:38)
[2016-12-15 06:53] LABS: CALCIUM 8.7 mg/dL (8.8-10.2); POTASSIUM 5.5 mmol/L (3.5-5.1)
[2016-12-15] MEDS ORDERED: HEPARIN IV PRN (06:59)
[2016-12-15] MEDS ORDERED: TIGHT: 0.2 ML/HR MISC PRN (06:59)
[2016-12-15] MEDS ORDERED: NS 2,000 ML MISC PRN (06:59)
[2016-12-15] MEDS ORDERED: INSULIN PEN NEEDLES ONE (08:20)
[2016-12-15] MEDS: MIRALAX PO SCH (08:31)
[2016-12-15] MEDS: CARDIZEM CD PO SCH (08:32)
[2016-12-15] MEDS: LOPRESSOR PO SCH ×2 (08:32→20:37)
[2016-12-15] MEDS: KEPPRA PO SCH ×2 (08:32→20:36)
[2016-12-15] MEDS: PROZAC PO SCH (08:32)
[2016-12-15] MEDS: REGLAN PO SCH ×2 (08:33→20:36)
[2016-12-15] MEDS: NORVASC PO SCH (08:33)
[2016-12-15] MEDS: EPOGEN SUBQ SCH (09:05)
[2016-12-15] MEDS: CENTRUM TABLET PO SCH (09:05)
--- NOTE | 2016-12-15 09:33 | PROGRESS NOTE ---
DATE: 12/15/2016 PATIENT LOCATION: ICU bed 11. Over the last several days, Ms. Chaparro had a relatively stable course from neurologic standpoint until she had 2 seizures yesterday. Blood sugars had again been moderately elevated around that time. Her levetiracetam dose was increased from 500 mg b.i.d. to 750 mg b.i.d. this morning. We have levetiracetam serum level pending from yesterday. This morning, she is awake, alert, bright, attentive, cheerful. She reports noticing that she felt bad yesterday and then she had a sense of shaking in both legs. She believes this is similar to how she has felt prior to seizures in the past. She reports she feels better today than on any other day so far this admission. Review of records shows that previous seizures have tended to occur with elevated blood sugars. Her levetiracetam level was very low on 250 mg b.i.d. We have a level pending on 500 mg b.i.d. We can follow her on 750 mg b.i.d. and if the level from yesterday is mid to high therapeutic, we may need to reduce the dose. If she continues 750 mg b.i.d. dose, will need to consider checking level on that dose later. No urgent suggestions today. Thanks for allowing me to follow Ms. Chaparro. cc: MD GARY Flores III
[2016-12-15] MEDS ORDERED: NS 2,000 ML ONE (11:05)
[2016-12-15] MEDS: PROTONIX IV SCH ×2 (11:25→23:41)
[2016-12-15] MEDS: SODIUM CHLORIDE 0.9% INJ SCH (11:25)
[2016-12-15] MEDS ORDERED: ZOFRAN ONE (12:48)
[2016-12-15] MEDS: ZOFRAN IV PRN (12:49)
--- NOTE | 2016-12-15 14:21 | PROGRESS NOTE ---
DATE: 12/15/2016 SUBJECTIVE: She is feeling better today. She has been able to eat her breakfast without difficulty. No nausea or vomiting. OBJECTIVE: Vital Signs: Blood pressure 137/89, heart rate 95, respirations 12, afebrile. General: She is a young woman in no distress. Skin: Warm and dry. Conjunctivae are pink. Neck: Neck veins are not distended. Heart: Regular. Lungs: Equal breath sounds. Abdomen: Soft, nontender. Bowel sounds present. Extremities: No edema, clubbing, or cyanosis. LABORATORY DATA: Sodium 139, potassium 5.5, chloride 101, bicarbonate 22, BUN 26, creatinine 6.6. Hemoglobin 10.0. IMPRESSIONS: 1. End-stage kidney disease. Dialysis today. We will attempt to use her fistula with 1 needle. 2. Electrolytes: Modest hyperkalemia that will be addressed. 3. Acid-base and anemia in target. 4. Seizure disorder. Controlled this morning. cc: Hardy Kay MD
--- NOTE | 2016-12-15 18:54 | PROGRESS NOTE ---
DATE: 12/15/2016 SUBJECTIVE: The patient is feeling better today. No fever. No chills. No nausea, vomiting, or diarrhea. The patient has been transferred back from the ER because of questionable seizure episode. OBJECTIVE: Vital signs: Blood pressure 108/75, pulse of 72, respiration 18, temperature 98.1 degrees, saturation 100% on room air. General appearance: Thin black female in no acute distress. HEENT: Anicteric. Clear conjunctivae. Neck: Supple. No JVD. No bruit. Cardiovascular: S1, S2. Normal rate and rhythm. No murmurs, rubs, or gallops. Pulmonary: Clear to auscultation bilaterally. GI: Soft, nontender, nondistended. Normoactive bowel sounds. Musculoskeletal: No clubbing, cyanosis, edema. LABORATORY: Her white count was 5.97, hemoglobin 10.0, hematocrit 32.3, platelets of 354,000. Chemistry: Sodium 139, potassium 5.5, chloride 101, bicarb 22, BUN 26, creatinine 6.6, glucose of 319. ASSESSMENT AND PLAN: This is a 36-year-old black female admitted to the hospital for diabetic ketoacidosis. 1. Diabetic ketoacidosis, resolved. She has very brittle diabetes. We will continue Lantus and sliding scale insulin for now. 2. History of cerebrovascular accident, noted. 3. End-stage renal disease. She is on hemodialysis. 4. Seizure disorder. Nephrology is following the patient. Keppra was increased. Okay to transfer to the floor. 5. Gastroparesis. Will continue Reglan. 6. Code status. The patient is a full code.
[2016-12-15] MEDS: PRAVACHOL PO SCH (20:37)
[2016-12-15] MEDS: REMERON PO SCH (20:37)
[2016-12-16] MEDS: HUMULIN R SUBQ SCH ×2 (00:48→04:28)
[2016-12-16 04:42] LABS: MANUAL DIFF NEEDED? NO
[2016-12-16 04:46] LABS: BASO% 0.8 % (0.0-0.8); EOS# 0.14 X1000 (0.0-0.7); EOS% 1.7 % (0.0-10.0); HEMATOCRIT 31.1 % (37.0-47.0); HEMOGLOBIN 9.6 g/dL (12.0-16.0); IMM GRAN# 0.08 X1000 (0.0-0.04); LYMPH# 1.79 X1000 (1.2-3.4); LYMPH% 21.3 % (20.5-51.1); MCH 30.3 PG (27-31); MCHC 30.9 g/dL (33-37); MCV 98.1 FL (81-99); MONO# 1.18 X1000 (0.11-0.59); MONO% 14.1 % (1.7-9.3); NEUT% 61.1 % (42.2-75.2); PLT 315 X1000 (130-400); RBC 3.17 XMIL (4.2-5.4)
[2016-12-16 05:07] LABS: CALCIUM 8.6 mg/dL (8.8-10.2)
[2016-12-16] MEDS: D50W SYRINGE IV PRN (05:13)
[2016-12-16] MEDS: CARDIZEM CD PO SCH (08:47)
[2016-12-16] MEDS: KEPPRA PO SCH ×2 (08:47→22:16)
[2016-12-16] MEDS: PROZAC PO SCH (08:47)
[2016-12-16] MEDS: NORVASC PO SCH (08:47)
[2016-12-16] MEDS: REGLAN PO SCH ×2 (08:48→23:14)
[2016-12-16] MEDS: LOPRESSOR PO SCH ×2 (08:48→22:14)
[2016-12-16] MEDS: MIRALAX PO SCH (08:48)
[2016-12-16] MEDS: CENTRUM TABLET PO SCH (08:48)
[2016-12-16] MEDS ORDERED: HUMULIN R SUBQ SCH ×2 (09:00→21:25)
[2016-12-16] MEDS ORDERED: LANTUS SUBQ SCH (09:00)
[2016-12-16] MEDS: LOVENOX SUBQ SCH (09:42)
[2016-12-16] MEDS: SODIUM CHLORIDE 0.9% INJ SCH ×2 (11:08→23:14)
[2016-12-16] MEDS: PROTONIX IV SCH ×2 (11:08→23:14)
--- NOTE | 2016-12-16 12:33 | PROGRESS NOTE ---
DATE: 12/16/2016 SUBJECTIVE: Ms. Chaparro is awake, alert, attentive, bright, and cheerful. She has not had anymore clinical seizures recognized. She does not appear to have significant drowsiness or any other adverse effect since increasing the levetiracetam dose. We have the levetiracetam serum level pending from a few days ago. No new suggestion from neurologic standpoint today. cc: Dee Ennis III, MD
--- NOTE | 2016-12-16 12:45 | PROGRESS NOTE ---
DATE: 12/16/2016 SUBJECTIVE: The patient is doing well. Blood sugar keeps on bouncing around from 40-300. She is awake, alert, and oriented this morning. They had to give her a 0.5 amp of D50 this morning because her blood sugar was in the 50s. OBJECTIVE: Vital signs: Blood pressure 118/79, pulse of 97, respirations 15, temp 98.1 degrees, saturations of 98% room air. General appearance: Thin, black female in no acute distress. HEENT: Anicteric. Clear conjunctivae. Neck: Supple. No JVD. No bruits. Cardiovascular: S1, S2. Normal rate and rhythm. No murmur, rubs, or gallops. Pulmonary: Clear to auscultation bilaterally. GI: Soft, nontender, nondistended. Normoactive bowel sounds. Musculoskeletal: No clubbing, cyanosis, or edema. LABORATORY: Her white count is 8.39, hemoglobin 9.6, hematocrit 31.1, platelets 315,000. Chemistry: Sodium 146, potassium 4.0, chloride 103, bicarb 30, BUN 21, creatinine 5.2, glucose 43. ASSESSMENT AND PLAN: This is a 36-year-old black female admitted to the hospital for diabetic ketoacidosis. 1. Diabetic ketoacidosis, resolved. She has very brittle diabetes. Blood sugar was low this morning. We will cut down her Lantus from 10 to 5 and we will let her blood sugar run high because the patient tends to drop rather quickly, even from 200 down to 50s. 2. Seizure disorder. Will continue Keppra. Neurology is following. 3. History cerebrovascular accident, noted. 4. Gastroparesis. Continue Reglan. 5. End-stage renal disease. She is on hemodialysis. Had dialysis last night. 6. Deep vein thrombosis prophylaxis. SCD and encourage ambulation.
--- NOTE | 2016-12-16 12:59 | PROGRESS NOTE ---
DATE: 12/16/2016 SUBJECTIVE: She is feeling well today. No nausea or vomiting. She is ready to eat. No further seizures. OBJECTIVE: Vital Signs: Blood pressure 118/79, heart rate 97, respirations 15, afebrile. General Appearance: Generally, she is young woman in no acute distress. Skin: Warm and dry. Eyes: Conjunctivae are pink. Neck: Neck veins are not distended. Trachea is midline. Heart: Regular with a soft systolic flow murmur. No gallops. Lungs: Have equal breath sounds. No crackles. Abdomen: Soft, nontender. Bowel sounds present. Extremities: Have no edema, clubbing, or cyanosis. LABORATORY DATA: Sodium 146, potassium 4.0, chloride 103, bicarbonate 30. BUN 21, creatinine 5.2, hemoglobin 9.6. IMPRESSION: 1. End-stage kidney disease. She will continue her routine dialysis prescription. 2. Electrolytes/acid base/anemia, all stable. 3. Nausea and vomiting, improved. 4. Hyperglycemia, improved. 5. Hypertension, in target. cc: Hardy Kay MD
[2016-12-16] MEDS: NORCO-7.5 PO PRN (16:31)
[2016-12-16] MEDS: LANTUS SUBQ SCH (16:32)
[2016-12-16] MEDS: ATIVAN IV PRN (20:57)
[2016-12-16] MEDS ORDERED: HUMALOG SUBQ ONE (21:27)
[2016-12-16] MEDS ORDERED: HUMALOG SUBQ SCH ×3 (22:00→22:27)
[2016-12-16] MEDS ORDERED: NS 250 ML IV ONE ×2 (22:00)
[2016-12-16] MEDS ORDERED: KEPPRA 750 MG in NS 100 ML IV ONE (22:15)
[2016-12-16] MEDS: HUMALOG SUBQ SCH ×2 (23:05→23:21)
[2016-12-16] MEDS: PRAVACHOL PO SCH (23:14)
[2016-12-16] MEDS: REMERON PO SCH (23:14)
[2016-12-17] MEDS: HUMALOG SUBQ SCH ×17 (01:09→23:04)
[2016-12-17] MEDS ORDERED: HUMALOG SUBQ ONE (01:23)
[2016-12-17] MEDS ORDERED: HEPARIN IV PRN (06:55)
[2016-12-17] MEDS ORDERED: NS 2,000 ML MISC PRN (06:55)
[2016-12-17] MEDS ORDERED: TIGHT: 0.2 ML/HR MISC PRN (06:55)
[2016-12-17 07:02] LABS: MANUAL DIFF NEEDED? NO
[2016-12-17 07:14] LABS: BASO% 1.4 % (0.0-0.8); EOS# 0.13 X1000 (0.0-0.7); EOS% 1.6 % (0.0-10.0); HEMATOCRIT 29.2 % (37.0-47.0); HEMOGLOBIN 8.9 g/dL (12.0-16.0); IMM GRAN# 0.08 X1000 (0.0-0.04); LYMPH# 1.66 X1000 (1.2-3.4); LYMPH% 20.4 % (20.5-51.1); MCH 30.1 PG (27-31); MCHC 30.5 g/dL (33-37); MCV 98.6 FL (81-99); MONO# 1.26 X1000 (0.11-0.59); MONO% 15.5 % (1.7-9.3); MPV 9.3 FL (7.4-10.4); NEUT% 60.1 % (42.2-75.2); PLT 278 X1000 (130-400); RBC 2.96 XMIL (4.2-5.4)
[2016-12-17 07:53] LABS: CALCIUM 8.9 mg/dL (8.8-10.2); POTASSIUM 4.8 mmol/L (3.5-5.1)
[2016-12-17] MEDS ORDERED: NS 2,000 ML ONE (08:51)
[2016-12-17] MEDS ORDERED: HEPARIN ONE (08:51)
[2016-12-17] MEDS ORDERED: NORVASC PO SCH (09:00)
--- NOTE | 2016-12-17 11:48 | PROGRESS NOTE ---
DATE: 12/17/2016 SUBJECTIVE: The patient is doing about the same. She is down for dialysis today. Blood sugar running high overnight. OBJECTIVE: Vital signs: Blood pressure 117/77, pulse of 79, respirations 16, temperature 98.2 degrees. Saturations of 90% on nasal cannula. General appearance: Thin black female in no acute distress. HEENT: Anicteric. Clear conjunctivae. Neck: Supple. No JVD. No bruit. Cardiovascular: S1, S2. Normal rate and rhythm. No murmur, rubs, or gallops. Pulmonary: Clear to auscultation bilaterally. GI: Soft, nontender, nondistended. Normoactive bowel sounds. Musculoskeletal: No clubbing, cyanosis, or edema. LABORATORY: WBC 8.14, hemoglobin 8.9, hematocrit of 29.2, platelets 278,000. Chemistry sodium 137, potassium 4.8, chloride 98, bicarb 25, BUN 37, creatinine 7.0, glucose of 129. ASSESSMENT AND PLAN: This is a 36-year-old black female admitted to the hospital for diabetic ketoacidosis. 1. Diabetic ketoacidosis resolved. Her blood sugar has been very sporadic. It can be 500 and then it can be 550. Will space out her Lantus twice a day instead of once a day. Continue sliding scale insulin. 2. Seizure disorder. Continue Keppra. Neurology is following. 3. End-stage renal disease. She is on hemodialysis. 4. Deep vein thrombosis prophylaxis. Patient on SCDs and encourage ambulation.
--- NOTE | 2016-12-17 13:50 | PROGRESS NOTE ---
DATE: 12/17/2016 SUBJECTIVE: Patient currently undergoing hemodialysis. She is in no acute distress. OBJECTIVE: Vital Signs: Temperature 98.2 degrees, pulse 79, respiratory rate 16, blood pressure 117/77. General: Middle-aged female resting in bed. No acute distress. HEENT: Is normocephalic atraumatic. Oral mucosa is moist. Neck: Supple. No JVD. Cardiovascular: Regular rate and rhythm. Systolic murmur noted. Pulmonary: Equal excursion. She is clear bilaterally. Abdomen: Soft, positive bowel sounds. : Not inspected. She has minimal void with hemodialysis assist. Extremities: No clubbing, cyanosis or edema. Integumentary: Her skin is warm and dry. No rash or lesion. LAB DATA: WBC of 8.1, hemoglobin 8.9. Sodium 137, potassium 4.8, CO2 25, BUN 37, creatinine 7.0. ASSESSMENT AND PLAN: 1. End-stage renal disease management. Today is her routine dialysis day. She is dialyzing on a 2 K bath with UF of goal of 3.5 L routine hour treatment. 2. Electrolytes, acid-base balance anemia. See #1 for plan. 3. Nausea and vomiting improved. 4. Hyperglycemia controlled. 5. Hypertension in target. 6. Fluid volume. She is not overloaded. Seen, data reviewed, discussed with Carl Fernandez on 12/17/16. I agree with the above assessment and plan of care. rg Dictated by MANNY Ordonez for Hardy Kay MD cc: Hardy Kay MD [facility]
[2016-12-17] MEDS: LANTUS SUBQ SCH ×2 (14:17→21:00)
[2016-12-17] MEDS: SODIUM CHLORIDE 0.9% INJ SCH ×2 (14:26→23:02)
[2016-12-17] MEDS: PROTONIX IV SCH ×2 (14:26→23:02)
[2016-12-17] MEDS: MIRALAX PO SCH (14:27)
[2016-12-17] MEDS: EPOGEN SUBQ SCH (14:27)
[2016-12-17] MEDS: LOVENOX SUBQ SCH (14:27)
[2016-12-17] MEDS: CARDIZEM CD PO SCH (14:32)
[2016-12-17] MEDS: PROZAC PO SCH (14:32)
[2016-12-17] MEDS: CENTRUM TABLET PO SCH (14:32)
[2016-12-17] MEDS: REGLAN PO SCH ×2 (14:34→20:59)
[2016-12-17] MEDS: LOPRESSOR PO SCH ×2 (14:54→21:01)
[2016-12-17] MEDS: KEPPRA PO SCH ×2 (15:19→20:57)
[2016-12-17] MEDS: PRAVACHOL PO SCH (20:57)
[2016-12-17] MEDS: REMERON PO SCH (20:57)
[2016-12-18] MEDS: NORCO-7.5 PO PRN (00:14)
[2016-12-18] MEDS: HUMALOG SUBQ SCH ×15 (00:17→21:39)
[2016-12-18 07:47] LABS: CALCIUM 8.5 mg/dL (8.8-10.2); POTASSIUM 5.2 mmol/L (3.5-5.1)
[2016-12-18] MEDS: MIRALAX PO SCH (09:15)
[2016-12-18] MEDS: LANTUS SUBQ SCH ×2 (09:16→20:38)
[2016-12-18] MEDS: KEPPRA PO SCH ×2 (09:16→20:38)
[2016-12-18] MEDS: LOVENOX SUBQ SCH (09:16)
[2016-12-18] MEDS: LOPRESSOR PO SCH ×2 (09:17→20:38)
[2016-12-18] MEDS: CENTRUM TABLET PO SCH (09:17)
[2016-12-18] MEDS: PROZAC PO SCH (09:18)
[2016-12-18] MEDS: REGLAN PO SCH ×2 (09:18→20:38)
[2016-12-18] MEDS: SODIUM CHLORIDE 0.9% INJ SCH ×2 (12:34→23:17)
[2016-12-18] MEDS: PROTONIX IV SCH ×2 (12:34→23:17)
--- NOTE | 2016-12-18 12:35 | PROGRESS NOTE ---
DATE: 12/18/2016 SUBJECTIVE: The patient is feeling well. No fever. No chills. No hypoglycemia overnight. No seizures overnight. OBJECTIVE: Vital Signs: Blood pressure 129/86, pulse 73, respirations 14, temperature 98.1 degrees, saturations are 93% on 3 L nasal cannula. General appearance: Thin , black female in no acute distress HEENT: Anicteric. Clear conjunctivae. Neck: Supple. No JVD. No bruit. Cardiovascular: S1, S2. Normal rate and rhythm. No murmur, rubs or gallops. Pulmonary: Clear. Gastrointestinal: Abdomen soft, nontender, and nondistended. Normoactive bowel sounds. Musculoskeletal: No clubbing, cyanosis, or edema. LABORATORY STUDIES: Chemistries: 139, potassium 5.2, chloride 99, bicarb 26, BUN 27, creatinine 5.1, glucose of 198. ASSESSMENT AND PLAN: 1. This is a 36-year-old black female admitted to the hospital for diabetic ketoacidosis. Diabetic ketoacidosis resolved. 2. Insulin-requiring type 1 diabetes. The patient has brittle diabetes. Spaced out her Levemir to 5 units twice a day and do sliding scale on the lower dosage. 3. Seizure disorder. We have increased her Keppra to 750 b.i.d. per neurology recommendations. No recurrent seizure. 4. End-stage renal disease. The patient got her dialysis yesterday. She is due again on Tuesday. 5. Hypertension. The patient's blood pressure had been running low. I stopped her diltiazem and Norvasc for now. We will keep her on Lopressor now CODE STATUS: The patient is a full code. DEEP VEIN THROMBOSIS PROPHYLAXIS: The patient is on Lovenox. MTDD
--- NOTE | 2016-12-18 13:38 | PROGRESS NOTE ---
DATE: 12/18/2016 SUBJECTIVE: Patient resting in bed. She has no complaints aside from some swelling noted to the right upper extremity. She states that this been there for several days now. OBJECTIVE: Vital Signs: Temperature 97.8 degrees, pulse 82, respiratory rate 14, blood pressure 115/81, intake 240 mL. Output 3.5 L. General: Middle-aged female resting in bed. No acute distress. HEENT: Normocephalic, atraumatic. Oral mucosa moist. Neck: Supple. No JVD. Cardiovascular: Regular rate and rhythm. Systolic murmur. Pulmonary: She has equal excursion. She is clear bilaterally. Abdomen: Soft, positive bowel sounds. Genitourinary : Not inspected. Hemodialysis Extremities: She has some trace edema noted to the right upper extremity. There is no pitting. She has a newly formed AV graft with a palpable pulse. Thrill. Integumentary: Skin is warm and dry. LABORATORY DATA: Sodium 139, creatinine 5.2, CO2 6, creatinine 5.1, calcium 8.5. ASSESSMENT/PLAN: 1. End-stage renal disease management. We are going to continue Tuesday, Tuesday, and Tuesday schedule while she is in the hospital. 2. Electrolytes, acid-base balance. These are stable. 3. Hyperglycemia controlled. 4. Fluid volume. She is not overloaded. 5. Right upper extremity swelling in the area or newly formed dialysis access. Continue to monitor. Ultrasound of this on Tuesday. Dictated by MANNY Ordonez for Hardy Kay MD Data reviewed, discussed with Gema on 12/18/16. I agree with the above assessment and plan of care. cc: Hardy Kay MD [facility]
[2016-12-18] MEDS: PRAVACHOL PO SCH (20:38)
[2016-12-18] MEDS: REMERON PO SCH (20:38)
[2016-12-19] MEDS: HUMALOG SUBQ SCH ×14 (04:15→23:18)
[2016-12-19 06:57] LABS: MANUAL DIFF NEEDED? NO
[2016-12-19 06:59] LABS: BASO% 0.9 % (0.0-0.8); EOS# 0.18 X1000 (0.0-0.7); EOS% 2.7 % (0.0-10.0); HEMATOCRIT 31.4 % (37.0-47.0); HEMOGLOBIN 9.7 g/dL (12.0-16.0); IMM GRAN# 0.04 X1000 (0.0-0.04); IMM GRAN% 0.6 % (0.0-0.5); LYMPH# 1.56 X1000 (1.2-3.4); LYMPH% 23.7 % (20.5-51.1); MCH 30.5 PG (27-31); MCHC 30.9 g/dL (33-37); MCV 98.7 FL (81-99); MONO# 0.89 X1000 (0.11-0.59); MONO% 13.5 % (1.7-9.3); MPV 9.2 FL (7.4-10.4); NEUT% 58.6 % (42.2-75.2); PLT 279 X1000 (130-400); RBC 3.18 XMIL (4.2-5.4)
[2016-12-19] MEDS ORDERED: INSULIN PEN NEEDLES ONE (07:12)
[2016-12-19 07:18] LABS: CALCIUM 8.8 mg/dL (8.8-10.2); POTASSIUM 5.4 mmol/L (3.5-5.1)
[2016-12-19] MEDS: LANTUS SUBQ SCH ×2 (09:37→20:47)
[2016-12-19] MEDS: KEPPRA PO SCH ×2 (09:38→20:48)
[2016-12-19] MEDS: PROZAC PO SCH (09:38)
[2016-12-19] MEDS: CENTRUM TABLET PO SCH (09:38)
[2016-12-19] MEDS: LOPRESSOR PO SCH ×2 (09:39→20:48)
[2016-12-19] MEDS: MIRALAX PO SCH (09:39)
[2016-12-19] MEDS: REGLAN PO SCH ×2 (09:39→20:48)
[2016-12-19] MEDS: LOVENOX SUBQ SCH (09:40)
--- NOTE | 2016-12-19 11:44 | PROGRESS NOTE ---
DATE: 12/19/2016 SUBJECTIVE: The patient is feeling well. No complaint. PHYSICAL EXAMINATION: Vital Signs: Blood pressure 148/92, pulse of 93, respirations 18, temperature of 97.7 degrees, saturation 100% on room air. General Appearance: A thin, black female in no acute distress. HEENT: Anicteric sclerae. Clear conjunctivae. Neck: Supple. No JVD. No bruit. Cardiovascular: S1 and S2. Normal rate and rhythm. No murmur, rubs, or gallops. Pulmonary: Clear to auscultation bilaterally. GI: Soft, nontender, nondistended. Normoactive bowel sounds. Musculoskeletal: No clubbing, cyanosis, or edema. ASSESSMENT/PLAN: A 36-year-old admitted to the hospital for diabetic ketoacidosis. 1. Diabetic ketoacidosis, resolved. 2. Brittle diabetes type 2. Seems to be doing a bit better with Lantus twice a day. Her blood sugar is still very brittle. Again, sometimes it is 50 and in the next hour, it above 350. We will continue sliding scale insulin for now. 3. Hypertension. If her blood pressure starts creeping up, we may have to put her back on her Lantus. For now, we will keep her on her Lopressor. 4. Seizure disorder. We will continue Keppra 750 twice a day. 5. Hyperlipidemia. We will continue Pravachol 80 mg. 6. History of cerebrovascular accident. Aware. 7. End-stage renal disease. The patient is on renal dialysis. 8. Depression. Continue Prozac. 9. Code status. Patient is a full code. 10. Deep vein thrombosis prophylaxis. The patient on Lovenox.
[2016-12-19] MEDS: PROTONIX IV SCH (13:45)
[2016-12-19] MEDS: REMERON PO SCH (20:48)
[2016-12-19] MEDS: PRAVACHOL PO SCH (20:48)
[2016-12-19] MEDS: ATIVAN IV PRN (20:59)
[2016-12-20] MEDS: HUMALOG SUBQ SCH ×16 (01:15→23:10)
[2016-12-20] MEDS: PROTONIX IV SCH (04:39)
[2016-12-20] MEDS: SODIUM CHLORIDE 0.9% INJ SCH (04:39)
[2016-12-20 06:38] LABS: MANUAL DIFF NEEDED? NO
[2016-12-20 07:18] LABS: BASO% 0.9 % (0.0-0.8); EOS# 0.21 X1000 (0.0-0.7); EOS% 3.7 % (0.0-10.0); HEMOGLOBIN 9.6 g/dL (12.0-16.0); IMM GRAN# 0.04 X1000 (0.0-0.04); IMM GRAN% 0.7 % (0.0-0.5); LYMPH# 1.45 X1000 (1.2-3.4); LYMPH% 25.2 % (20.5-51.1); MCH 30.5 PG (27-31); MCV 98.4 FL (81-99); MONO# 0.64 X1000 (0.11-0.59); MONO% 11.1 % (1.7-9.3); MPV 9.3 FL (7.4-10.4); NEUT% 58.4 % (42.2-75.2); PLT 278 X1000 (130-400); RBC 3.15 XMIL (4.2-5.4)
[2016-12-20 07:31] LABS: CALCIUM 8.5 mg/dL (8.8-10.2); POTASSIUM 4.9 mmol/L (3.5-5.1)
[2016-12-20] MEDS ORDERED: HEPARIN IV PRN (08:25)
[2016-12-20] MEDS ORDERED: NS 2,000 ML MISC PRN (08:25)
[2016-12-20] MEDS ORDERED: TIGHT: 0.2 ML/HR MISC PRN (08:25)
[2016-12-20] MEDS ORDERED: HEPARIN ONE (09:05)
[2016-12-20] MEDS ORDERED: NS 2,000 ML ONE (09:05)
--- NOTE | 2016-12-20 11:59 | PROGRESS NOTE ---
DATE: 12/20/2016 SUBJECTIVE: She is doing well. She is undergoing dialysis. No nausea, vomiting, or shortness of breath. OBJECTIVE: Vital Signs: Blood pressure 166/99, heart rate 91, respiration 18, afebrile. General: She is a young woman, pleasant, no distress. Skin: Warm and dry. HEENT: Conjunctivae are pink. Neck: Neck veins are not distended. Heart: Regular. No gallops or murmurs. Lungs: Have equal breath sounds. No crackles or wheezes. Abdomen: Soft, nontender. Bowel sounds present. Extremities: Have no edema, clubbing, or cyanosis. LABORATORY DATA: Sodium 143, potassium 4.9, chloride 101, bicarbonate 23, BUN 47, creatinine 1.8. Hemoglobin 9.6. IMPRESSIONS: 1. End-stage kidney disease. She is currently undergoing her routine dialysis treatment. 2. Diabetic ketoacidosis, resolved. 3. Electrolytes are acceptable. 4. Hypertension. High this morning but systolic has been in the 120s to 140s in the last 24 hours. No changes. cc: Hardy Kay MD
--- NOTE | 2016-12-20 12:31 | PROGRESS NOTE ---
DATE: 12/20/2016 Ms. Chaparro is awake, alert, attentive, bright, cheerful. She says she has been feeling well for the last several days. She has not had a definite clinical seizure. Her levetiracetam level was mid 40s, upper edge of general accepted therapeutic range on 500 mg b.i.d., and we have since increased her dose to 750 mg b.i.d. She does not have any clinical evidence of levetiracetam toxicity, but I think it would be prudent to return the dose to 500 mg b.i.d. She had a seizure on that lower dose last week, but that was associated with significant blood sugar elevation. Depending on her clinical course, we might repeat the levetiracetam level and we might eventually need to consider a different drug. Thanks for allowing me to follow Ms. Chaparro. cc: Dee Ennis III, MD
--- NOTE | 2016-12-20 15:18 | PROGRESS NOTE ---
DATE: 12/20/2016 SUBJECTIVE: This patient just came back from dialysis. She is sleepy. She feels tired. I had a conversation with this patient and she does not want to go to a rehab center. She wants to go home with her sister and home health with physical therapy. Today she was evaluated by Dr. Ennis from Neurology Department and the dose of any Keppra was decreased from 750 mg twice a day to 500 mg twice a day. I will monitor this patient overnight, and I will send her home in the morning. OBJECTIVE: Vital Signs: Temperature 98.3 degrees, pulse 91, respiratory rate 18, blood pressure 166/99, O2 saturation 95% on room air. HEENT: Head normocephalic. No trauma. PERRLA. Neck: Supple. No JVD. No masses. Central trachea. Chest: Clear to auscultation. No wheezing. No rales. Cardiovascular: Regular rhythm and rate. Abdomen: Soft, nontender, nondistended. No hepatosplenomegaly. Extremities: No edema. No clubbing. No cyanosis. Neurological: The patient is sleepy, but arousable. She feels tired. She has generalized weakness. She moves all 4 extremities. She is oriented x3. LABORATORY: WBC 5.7, hemoglobin 9.6, hematocrit 31, platelets 278,000. Sodium 143, potassium 4.9, chloride 101, bicarbonate 24, BUN 47, creatinine 8.1, glucose 107, calcium 8.5. ASSESSMENT AND PLAN: 1. Diabetic ketoacidosis, resolved. 2. Type 2 diabetes. Continue with the same management. The blood sugar has been stable. 3. Hypertension. Continue with the same management for now. 4. Seizure disorder. I will decrease the amount of Keppra from 750 twice a day to 500 twice a day. 5. Hyperlipidemia. Continue with Pravachol 80 mg p.o. daily. 6. History of cerebrovascular accident. Aware. 7. End-stage renal disease. Continue with dialysis as scheduled. 8. Depression. Continue with Prozac. 9. Deep venous thrombosis prophylaxis. This patient is on Lovenox. 10. Code Status: Patient is full code. Overall, this patient is doing better. I will monitor this patient for one more night and then I will send her home tomorrow morning. She needs to continue dialysis as an outpatient. Followup with her primary care physician in 1 week. cc: Logan Abraham MD
[2016-12-20] MEDS: MIRALAX PO SCH (15:22)
[2016-12-20] MEDS: LANTUS SUBQ SCH ×2 (15:23→20:52)
[2016-12-20] MEDS: CENTRUM TABLET PO SCH (15:23)
[2016-12-20] MEDS: EPOGEN SUBQ SCH (15:23)
[2016-12-20] MEDS: LOPRESSOR PO SCH ×2 (15:24→20:51)
[2016-12-20] MEDS: REGLAN PO SCH ×2 (15:24→20:51)
[2016-12-20] MEDS: LOVENOX SUBQ SCH (15:24)
[2016-12-20] MEDS: PROZAC PO SCH (15:24)
[2016-12-20] MEDS: KEPPRA PO SCH ×2 (15:25→20:51)
[2016-12-20] MEDS: REMERON PO SCH (20:49)
[2016-12-20] MEDS: PRAVACHOL PO SCH (20:51)
[2016-12-20] MEDS: PROTONIX PO SCH (20:51)
[2016-12-20] MEDS: ATIVAN IV PRN (21:03)
[2016-12-21] MEDS: HUMALOG SUBQ SCH ×14 (00:43→21:00)
[2016-12-21] MEDS: PROTONIX PO SCH ×2 (06:26→21:01)
[2016-12-21 07:08] LABS: MANUAL DIFF NEEDED? NO
[2016-12-21 07:16] LABS: BASO% 1.6 % (0.0-0.8); EOS# 0.19 X1000 (0.0-0.7); EOS% 3.4 % (0.0-10.0); HEMATOCRIT 36.6 % (37.0-47.0); HEMOGLOBIN 11.2 g/dL (12.0-16.0); IMM GRAN# 0.04 X1000 (0.0-0.04); IMM GRAN% 0.7 % (0.0-0.5); LYMPH# 1.63 X1000 (1.2-3.4); LYMPH% 29.2 % (20.5-51.1); MCH 30.4 PG (27-31); MCHC 30.6 g/dL (33-37); MCV 99.5 FL (81-99); MONO# 0.76 X1000 (0.11-0.59); MONO% 13.6 % (1.7-9.3); MPV 9.7 FL (7.4-10.4); NEUT% 51.5 % (42.2-75.2); PLT 297 X1000 (130-400); RBC 3.68 XMIL (4.2-5.4)
[2016-12-21 07:31] LABS: CALCIUM 9.2 mg/dL (8.8-10.2); POTASSIUM 4.7 mmol/L (3.5-5.1)
[2016-12-21] MEDS ORDERED: NORVASC PO SCH (09:00)
[2016-12-21] MEDS: REGLAN PO SCH ×2 (09:11→21:01)
[2016-12-21] MEDS: LOVENOX SUBQ SCH (09:11)
[2016-12-21] MEDS: CENTRUM TABLET PO SCH (09:11)
[2016-12-21] MEDS: PROZAC PO SCH (09:11)
[2016-12-21] MEDS: KEPPRA PO SCH ×2 (09:11→21:02)
[2016-12-21] MEDS: LOPRESSOR PO SCH ×2 (09:11→21:02)
[2016-12-21] MEDS: MIRALAX PO SCH (09:12)
[2016-12-21] MEDS: LANTUS SUBQ SCH ×2 (09:17→21:10)
--- NOTE | 2016-12-21 12:22 | PROGRESS NOTE ---
DATE: 12/21/2016 SUBJECTIVE: She is feeling well. No nausea or vomiting. She has been able to eat. No shortness of breath. OBJECTIVE: Vital Signs: Blood pressure 164/95, heart rate 80, respiration 18, afebrile. General: She is in no acute distress. Skin: Warm and dry. HEENT: Conjunctivae are pink. Pupils are equal. Neck: Neck veins are not distended. Heart: Regular with a gallop. Lungs: Have equal breath sounds. No crackles. Abdomen: Soft, nontender. Bowel sounds present. Extremities: Have no edema, clubbing, or cyanosis. IMPRESSION: 1. End-stage kidney disease. She had dialysis yesterday. Next planned treatment is tomorrow. 2. Electrolytes are in target. 3. Acid-base in target. DKA resolved. 4. Nausea and vomiting. Improved. 5. Seizures improved. cc: Hardy Kay MD
[2016-12-21] MEDS: ATIVAN IV PRN ×2 (13:44→21:50)
[2016-12-21] MEDS ORDERED: ATIVAN IV ONE (13:53)
--- NOTE | 2016-12-21 15:24 | PROGRESS NOTE ---
DATE: 12/21/2016 SUBJECTIVE: The plan was to send this patient home today. The blood pressure has been a little bit elevated. The blood sugar was better controlled, but today she got 1 episode of 450, and apparently she had a seizure episode on the floor. She received Ativan and then she was transferred to the ICU. OBJECTIVE: Vital Signs: Temperature 97.5 degrees, pulse 18, blood pressure 164/95, O2 saturation 100% on room air. HEENT: Head normocephalic. No trauma. PERRLA. Neck: Supple. No JVD. No masses. Central trachea. Chest: Clear to auscultation. No wheezing. No rales. Abdomen: Soft, nontender, nondistended. No hepatosplenomegaly. Extremities: No edema. No clubbing. No cyanosis. Neurological: This patient is alert. She is oriented x3. She is answering all my questions. No focal neurological deficits. She moves all 4 extremities. LABORATORY: WBC 5.5, hemoglobin 11.2, hematocrit 36.9, platelet 297,000. Sodium 141, potassium 4.7, chloride 100, bicarbonate 24, BUN 34, creatinine 6.1, glucose 112, calcium 9.2. ASSESSMENT AND PLAN: 1. Type 2 diabetes. Continue with the same management. The blood sugar has been better controlled, but today she has been having episodes of hyperglycemia. I am not quite sure if this patient is eating only the food from the hospital. 2. Hypertension. We will put this patient back on amlodipine 10 daily. She was taking that amount at home. Will monitor the blood pressure. 3. Diabetes ketoacidosis, resolved. 4. Seizure disorder. Apparently, this patient had an episode of seizure today. She has been on Keppra 500 mg twice a day. We will monitor this patient in the Intensive Care Unit. 5. Hyperlipidemia. Continue with Pravachol 80 mg p.o. daily. 6. History of cerebrovascular accident. Aware. 7. End-stage renal disease. Continue with dialysis as scheduled. 8. Depression. Continue with Prozac. 9. Deep vein thrombosis prophylaxis. This patient is on Lovenox. 10. Code status: Patient is full code. CRITICAL CARE TIME: Thirty minutes. cc: Logan Abraham MD
[2016-12-21] MEDS: REMERON PO SCH (21:01)
[2016-12-21] MEDS: PRAVACHOL PO SCH (21:02)
[2016-12-21] MEDS: APRESOLINE IV PRN (23:21)
[2016-12-22] MEDS: HUMALOG SUBQ SCH ×7 (01:25→23:39)
[2016-12-22 06:15] LABS: MANUAL DIFF NEEDED? NO
[2016-12-22 06:16] LABS: BASO% 1.8 % (0.0-0.8); EOS% 3.1 % (0.0-10.0); HEMATOCRIT 32.7 % (37.0-47.0); HEMOGLOBIN 10.2 g/dL (12.0-16.0); IMM GRAN# 0.03 X1000 (0.0-0.04); IMM GRAN% 0.5 % (0.0-0.5); LYMPH# 1.67 X1000 (1.2-3.4); LYMPH% 25.7 % (20.5-51.1); MCH 30.7 PG (27-31); MCHC 31.2 g/dL (33-37); MCV 98.5 FL (81-99); MONO# 0.84 X1000 (0.11-0.59); MONO% 12.9 % (1.7-9.3); MPV 9.7 FL (7.4-10.4); PLT 313 X1000 (130-400); RBC 3.32 XMIL (4.2-5.4)
[2016-12-22] MEDS: PROTONIX PO SCH ×2 (06:21→21:02)
[2016-12-22 06:38] LABS: CALCIUM 8.7 mg/dL (8.8-10.2); POTASSIUM 5.2 mmol/L (3.5-5.1)
[2016-12-22] MEDS ORDERED: TIGHT: 0.2 ML/HR MISC PRN (07:30)
[2016-12-22] MEDS ORDERED: NS 2,000 ML MISC PRN (07:30)
[2016-12-22] MEDS ORDERED: HEPARIN IV PRN (07:30)
[2016-12-22] MEDS: KEPPRA PO SCH ×3 (08:16→21:15)
[2016-12-22] MEDS: PROZAC PO SCH (08:17)
[2016-12-22] MEDS: MIRALAX PO SCH (08:17)
[2016-12-22] MEDS: NORVASC PO SCH (08:17)
[2016-12-22] MEDS: REGLAN PO SCH ×2 (08:17→21:02)
[2016-12-22] MEDS: LOPRESSOR PO SCH ×2 (08:17→20:59)
[2016-12-22] MEDS: LANTUS SUBQ SCH ×2 (08:18→21:07)
[2016-12-22] MEDS: EPOGEN SUBQ SCH (08:56)
[2016-12-22] MEDS: CENTRUM TABLET PO SCH (08:56)
[2016-12-22] MEDS: APRESOLINE IV PRN (09:20)
--- NOTE | 2016-12-22 10:23 | PROGRESS NOTE ---
DATE: 12/22/2016 SUBJECTIVE: She had a seizure prior to discharge yesterday, and so was transferred to the ICU. She has also had problems with hyperglycemia again. OBJECTIVE: Vital Signs: Blood pressure 181/123; previous 141/97. Heart rate 83, respirations 17, afebrile. General: She is a pleasant young woman in no distress. Skin: Warm and dry. Eyes: Conjunctivae are pink. Neck: Neck veins are not distended. Heart: Regular. Lungs: Have equal breath sounds. No crackles. Abdomen: Soft, nontender. Bowel sounds present. Extremities: Have no edema, clubbing, or cyanosis. LABORATORY DATA: Sodium 141, potassium 5.2, chloride 100, bicarbonate 25, BUN 53, creatinine 7.5 and hemoglobin 10.2. IMPRESSION: 1. End-stage kidney disease. She will have her routine hemodialysis today. 2. Electrolytes/acid base/anemia, all in target. 3. Hypertension. It has ranged widely, but is at times well controlled on her current regimen. No changes. cc: Hardy Kay MD
--- NOTE | 2016-12-22 10:57 | PROGRESS NOTE ---
DATE: 12/22/2016 SUBJECTIVE: This patient was about to be sent home yesterday but she started having apparently seizures on the medical floor and she was transferred to the ICU. Today, she is doing much better. She will get dialysis today. I will keep this patient 1 more day in the ICU and hopefully tomorrow we will transfer this patient back to the floor. I will continue with the same management and monitoring the blood sugar. I have requested an evaluation by the manager of project management to try to control better her blood sugar and food. OBJECTIVE: Vital Signs: Temperature 97.6 degrees, pulse 83, respiratory rate 17, blood pressure 181/123, oxygen saturation 96 on room air. HEENT: Head normocephalic. No trauma. PERRLA. Neck: Supple. No JVD. No masses. Central trachea. Chest: Clear to auscultation. No wheezing. No rales. Abdomen: Soft, nontender, nondistended. Extremities: No edema. No clubbing. No cyanosis. Neurological Examination: The patient is alert and oriented x3. She is answering all my questions appropriately. No focal neurological deficits. She moves all 4 extremities. Laboratory: WBC 6.5, hemoglobin 10.2, hematocrit 32.7, platelets of 313,000. Sodium 141, potassium 5.2, chloride 100, bicarbonate 25, BUN 53, creatinine 7.5, glucose 170, calcium 8.7. ASSESSMENT AND PLAN: 1. Type 2 diabetes. Continue with the same management. Yesterday, she had some episodes of hyperglycemia. Today, it looks that the blood sugar is much better. We will continue to monitor. I have requested an evaluation by the manager of project management to try to help this patient with her diet. 2. Hypertension. Yesterday, I put this patient back on amlodipine 10 daily and also she is on metoprolol tartrate 50 mg by mouth twice a day. Probably, I will add hydralazine if the amlodipine does not work. 3. Seizure disorder. Apparently, this patient had an episode of seizures yesterday. She has been on Keppra 500 mg twice a day. We will monitor this patient in the intensive care unit. 4. Hyperlipidemia. Continue with Pravachol 80 by mouth daily. 5. History of cerebrovascular accident. Aware. 6. End-stage renal disease. She will have hemodialysis today as scheduled. 7. Depression. Continue with Prozac. 8. Deep vein thrombosis prophylaxis. This patient is on Lovenox. 9. Code status. This patient is full code. CRITICAL CARE TIME: 35 minutes. cc: Logan Abraham MD
[2016-12-22] MEDS: LOVENOX SUBQ SCH (11:07)
[2016-12-22] MEDS ORDERED: HEPARIN ONE (12:52)
[2016-12-22] MEDS ORDERED: NS 2,000 ML ONE (12:52)
[2016-12-22] MEDS: ATIVAN IV PRN (13:19)
--- NOTE | 2016-12-22 13:19 | Extremity Venous Study ---
PROCEDURE NAME: Venous U/S Right Arm - 12/20/2016 Right upper extremity venous duplex and color flow imaging study using the GE Vivid E9 Ultrasound System with a 9L- -D transducer. REFERRING PHYSICIAN: Dr. Hardy Kay and Dr. Logan Abraham. IDENTIFYING DATA: A 36-year-old female. MEDIA ARTS PROFESSOR: Irene Coyle RVT. INDICATION: Swelling of the limb, M79.89. The patient has had a previous transposed right basilic vein to brachial artery AV fistula. INTERPRETATION: The right internal jugular vein was compressible and had flow through it. The right subclavian and axillary veins had flow through them and were compressible. Right brachial vein was compressible along its length. The right basilic to brachial artery AV fistula appeared to be patent. The veins in the antecubital fossa and right forearm were all compressible and had flow through them. INTERPRETATION: Patent right basilic vein to brachial artery arteriovenous fistula without evidence of deep or superficial venous thrombosis involving the veins of the right upper extremity. cc: MD Lana Oh CRNP
[2016-12-22] MEDS ORDERED: TRILEPTAL PO ONE (14:26)
--- NOTE | 2016-12-22 15:05 | PROGRESS NOTE ---
DATE: 12/22/2016 Ms. Chaparro had another seizure yesterday and again today. The seizure yesterday may have been associated with hyperglycemia with lab showing blood sugar recorded 561 early afternoon, over 400 from early to mid afternoon. Today, blood sugar is less elevated but was over 300 just before dialysis and she apparently had seizure as she was beginning dialysis. Now, she has recovered and is awake, alert, conversant, swallowing medicines. Her levetiracetam dose had been 500 mg b.i.d. She had level 44.7, near the upper edge of therapeutic range on that dose last week. We had temporarily increased her levetiracetam dose to 750 mg b.i.d. and she tolerated that dose. Based on recent history with recurrent seizure, I am going to return her levetiracetam dose to 750 mg b.i.d. and we can check level on that dose. Also, since she has had multiple seizures with levetiracetam on board, we will begin a 2nd seizure medicine and anticipate tapering levetiracetam soon. She will start oxcarbazepine, and further plans will depend on her clinical course. cc: Dee Ennis III, MD
[2016-12-22] MEDS: TRILEPTAL PO SCH (21:01)
[2016-12-22] MEDS: REMERON PO SCH (21:02)
[2016-12-22] MEDS: PRAVACHOL PO SCH (21:03)
[2016-12-23] MEDS: ATIVAN IV PRN (02:32)
[2016-12-23] MEDS: HUMALOG SUBQ SCH ×5 (04:10→19:48)
[2016-12-23 05:56] LABS: MANUAL DIFF NEEDED? NO
[2016-12-23 06:02] LABS: BASO% 1.3 % (0.0-0.8); EOS# 0.17 X1000 (0.0-0.7); EOS% 2.9 % (0.0-10.0); HEMATOCRIT 34.7 % (37.0-47.0); HEMOGLOBIN 10.7 g/dL (12.0-16.0); IMM GRAN# 0.03 X1000 (0.0-0.04); IMM GRAN% 0.5 % (0.0-0.5); LYMPH# 1.29 X1000 (1.2-3.4); LYMPH% 21.8 % (20.5-51.1); MCH 30.9 PG (27-31); MCHC 30.8 g/dL (33-37); MCV 100.3 FL (81-99); MONO# 1.07 X1000 (0.11-0.59); MPV 9.7 FL (7.4-10.4); NEUT% 55.5 % (42.2-75.2); PLT 329 X1000 (130-400); RBC 3.46 XMIL (4.2-5.4)
[2016-12-23] MEDS: PROTONIX PO SCH ×2 (06:14→21:00)
[2016-12-23 06:23] LABS: CALCIUM 8.7 mg/dL (8.8-10.2); POTASSIUM 4.6 mmol/L (3.5-5.1)
[2016-12-23] MEDS: LOPRESSOR PO SCH ×2 (08:42→20:38)
[2016-12-23] MEDS: NORVASC PO SCH (08:42)
[2016-12-23] MEDS: PROZAC PO SCH (08:42)
[2016-12-23] MEDS: MIRALAX PO SCH (08:42)
[2016-12-23] MEDS: REGLAN PO SCH ×2 (08:42→20:38)
[2016-12-23] MEDS: KEPPRA PO SCH ×2 (08:42→20:39)
[2016-12-23] MEDS: CENTRUM TABLET PO SCH (08:43)
[2016-12-23] MEDS: TRILEPTAL PO SCH ×2 (08:43→20:37)
[2016-12-23] MEDS: LANTUS SUBQ SCH ×2 (09:09→20:49)
[2016-12-23] MEDS: LOVENOX SUBQ SCH (09:10)
--- NOTE | 2016-12-23 10:48 | PROGRESS NOTE ---
DATE: 12/23/2016 SUBJECTIVE: The patient states that she is feeling better today. Yesterday during dialysis she had another seizure, the neurology department evaluated this patient and they adjusted her seizure medication, also this patient has been having hyperglycemia and she received on top of her Lantus schedule more sliding scale insulin, around a little bit more than 20. I will increase the dose of Lantus a little bit from 5 b.i.d. to 8 b.i.d.. She is somehow sensitive to insulin and she has been having before hypoglycemia. I will continue to monitor this patient in the ICU. OBJECTIVE: Vital Signs: Temperature is 97.6, pulse 85, respiratory rate 14, and blood pressure 111/77. Oxygen saturation is 99% on 2 L of nasal cannula. HEENT: Head is normocephalic. No trauma. PERRLA. Neck: Supple. No JVD. No masses. Central trachea. Chest: Clear to auscultation. No wheezing. No rales. Abdomen: Soft, nontender, and nondistended. No hepatosplenomegaly. Extremities: No edema. No clubbing. No cyanosis. Neurological: The patient is alert and oriented times 3. She is answering all my questions appropriately. No focal neurological deficits. She moves all 4 extremities. LABORATORY DATA: WBC is 5.9, hemoglobin 10.7, hematocrit 34.7, and platelets 329. Sodium is 141, potassium 4.6, chloride 100, bicarbonate 23, BUN 32, creatinine 5.2, and glucose 242. ASSESSMENT AND PLAN: 1. Type 2 diabetes. The blood sugar has been elevated. I increased the dose of Lantus from 5 b.i.d. to 8 b.i.d. and I will continue with a sliding scale. We will readjust the dose accordingly. Also, I requested already a new evaluation by the collection analyst to help this patient with her diet. 2. Seizure disorder. Apparently this patient also had an episode of a seizure yesterday during dialysis. The neurology department evaluated this patient and they modified her seizure medication. We will continue to monitor in the ICU. 3. Hypertension. Her blood pressure is better controlled. We will continue to monitor. 4. Hyperlipidemia. Continue with Pravachol 80 mg by mouth daily. 5. History of cerebrovascular accident. Aware. 6. End-stage renal disease. Continue with hemodialysis as scheduled. 7. Depression. Continue with Prozac. 8. Deep venous thrombosis prophylaxis. This patient is on Lovenox. 9. Code status: This patient is a full code. CRITICAL CARE TIME: 35 minutes. cc: Logan Abraham MD
--- NOTE | 2016-12-23 11:42 | PROGRESS NOTE ---
DATE: 12/23/2016 Ms. Chaparro has not had any more seizure episodes. Blood sugars have been less than 300. She is awake and alert now. She does not have any specific neurologic complaints right now. I discussed with her at the bedside plans for adding oxcarbazepine as 2nd AED for seizure management and we might consider tapering levetiracetam later. She has tolerated her 1st few doses of oxcarbazepine and we will continue titrating that slowly as planned. Thanks for allowing me to follow Ms. Chaparro. cc: MD GARY Flores III
--- NOTE | 2016-12-23 17:06 | PROGRESS NOTE ---
DATE: 12/23/2016 SUBJECTIVE: Patient resting in bed. She awakens easily and is in no acute distress. OBJECTIVE: Vital signs: Temperature 97.9 degrees, pulse 81, respiratory rate 18, blood pressure 146/98, intake 1.2 L, output 3 L. General: Middle-aged female resting in bed. She is awake and alert. No acute distress. She has had no additional seizure episodes. HEENT: Normocephalic, atraumatic. Oral mucosa is moist. Neck: Supple. No JVD. Cardiovascular: Regular rate and rhythm without murmur or gallop. Pulmonary: She has equal excursion. She is clear bilaterally. She is on room air. Abdomen: Soft, with positive bowel sounds. : Not inspected. Extremities: No clubbing, cyanosis or edema. Integumentary: Skin is warm and dry. LABORATORY DATA: WBC of 5.9, hemoglobin 10.7, sodium 141, potassium 4.6, CO2 23 , creatinine 5.5, and a glucose max 313 over the last 24 hours. ASSESSMENT AND PLAN: 1. End-stage renal disease management. We will dialyzing on a Tuesday-Tuesday- Tuesday schedule as per her routine. We will plan to dialyze in the morning. 2. Electrolytes, acid-base balance, anemia. These are all stable. 3. Hypertension. Currently controlled. 4. Seizures, diabetic ketoacidosis followed by primary and Neurology. Seen, data reviewed, discussed with Carl Fernandez on 12/24/15. I agree with the above assessment and plan of care. rg Dictated by MANNY Ordonez for Hardy Kay MD cc: Hardy Kay MD [facility]
[2016-12-23] MEDS: REMERON PO SCH (20:39)
[2016-12-23] MEDS: PRAVACHOL PO SCH (20:48)
[2016-12-24] MEDS: HUMALOG SUBQ SCH ×6 (00:40→20:54)
[2016-12-24] MEDS: APRESOLINE PO PRN (02:03)
[2016-12-24 05:33] LABS: MANUAL DIFF NEEDED? NO
[2016-12-24 05:36] LABS: BASO% 1.5 % (0.0-0.8); EOS# 0.16 X1000 (0.0-0.7); EOS% 2.4 % (0.0-10.0); HEMATOCRIT 33.3 % (37.0-47.0); HEMOGLOBIN 10.2 g/dL (12.0-16.0); IMM GRAN# 0.02 X1000 (0.0-0.04); IMM GRAN% 0.3 % (0.0-0.5); LYMPH# 1.82 X1000 (1.2-3.4); MCH 30.5 PG (27-31); MCHC 30.6 g/dL (33-37); MCV 99.7 FL (81-99); MONO# 1.06 X1000 (0.11-0.59); MONO% 15.7 % (1.7-9.3); MPV 9.8 FL (7.4-10.4); NEUT% 53.1 % (42.2-75.2); PLT 340 X1000 (130-400); RBC 3.34 XMIL (4.2-5.4)
[2016-12-24 05:56] LABS: CALCIUM 9.1 mg/dL (8.8-10.2)
[2016-12-24] MEDS: PROTONIX PO SCH ×2 (06:24→21:00)
[2016-12-24] MEDS ORDERED: NS 2,000 ML MISC PRN (07:11)
[2016-12-24] MEDS ORDERED: TIGHT: 0.2 ML/HR MISC PRN (07:11)
[2016-12-24] MEDS ORDERED: HEPARIN IV PRN (07:11)
[2016-12-24] MEDS ORDERED: NS 2,000 ML ONE (08:00)
[2016-12-24] MEDS ORDERED: HEPARIN ONE (08:00)
[2016-12-24] MEDS ORDERED: INSULIN PEN NEEDLES ONE (08:22)
[2016-12-24] MEDS: TRANDATE PO SCH ×2 (08:25→21:02)
[2016-12-24] MEDS: KEPPRA PO SCH ×2 (08:25→21:00)
[2016-12-24] MEDS: TRILEPTAL PO SCH ×2 (08:26→21:02)
[2016-12-24] MEDS: NORVASC PO SCH (08:26)
[2016-12-24] MEDS: CENTRUM TABLET PO SCH (08:26)
[2016-12-24] MEDS: PROZAC PO SCH (08:26)
[2016-12-24] MEDS: REGLAN PO SCH ×2 (08:26→20:59)
[2016-12-24] MEDS: MIRALAX PO SCH (08:28)
[2016-12-24] MEDS ORDERED: HUMULIN 70/30 SUBQ SCH ×2 (09:00→21:00)
--- NOTE | 2016-12-24 10:37 | PROGRESS NOTE ---
DATE: 12/24/2016 SUBJECTIVE: This patient states that she is feeling better but the blood sugar is still uncontrolled. She received a little bit more 50 units in the past 24 hours. I will change the Lantus 8 units b.i.d. and I will start this patient on insulin 70/30. I will provide 28 units in the morning and 12 units in the afternoon. I will monitor this patient closely in the ICU to see how she does. OBJECTIVE: Vital Signs: Temperature 96.9 degrees, pulse 88, respiratory rate 12, blood pressure 157/105, oxygen saturation 100% on room. HEENT: Head normocephalic. No trauma. PERRLA. Neck: Supple. No JVD. No masses. Central trachea. Chest: Clear to auscultation. No wheezing. No rales. Abdomen: Soft, nontender, nondistended. No hepatosplenomegaly. Extremities: No edema. No clubbing. No cyanosis. Neurological: The patient is alert and oriented x3. No focal deficits. LABORATORY: WBC 6.7, hemoglobin 10.2, hematocrit 33.3, platelets 340,000. Sodium 142, potassium 5, chloride 100, bicarbonate 24, BUN 55, creatinine 7.1, glucose 106, calcium 9.1. ASSESSMENT AND PLAN: 1. Type 2 diabetes. I will change the Lantus for 70/30 insulin. She will receive 28 units in the morning and 12 units in the afternoon. I will monitor the blood sugar closely. She received around 54 units of insulin in the past 24 hours so her glucose is not well controlled. 2. Seizure disorder. She has been without any kind of seizures for the past 24 .ours, neurology department evaluated this patient and they modified her seizure medication a couple days ago. We will continue to monitor in the ICU for 1 more day. 3. Hypertension. The blood pressure has been controlled. Continue to monitor. 4. Hyperlipidemia. Continue with Pravachol 80 by mouth daily. 5. History of cerebrovascular accident. Aware. 6. End-stage renal disease. Continue hemodialysis as scheduled. 7. Depression. Continue with Prozac. 8. Deep vein thrombosis prophylaxis. This patient is on Lovenox. 9. Code status. This patient is full code. CRITICAL CARE TIME: 30 minutes. cc: Logan Abraham MD
--- NOTE | 2016-12-24 10:59 | PROGRESS NOTE ---
DATE: 12/24/2016 SUBJECTIVE: She has no new complaints. She has been resting comfortably. No nausea or vomiting. No further seizures. OBJECTIVE: Vital Signs: Blood pressure 159/101, heart rate 82, respiration 20, afebrile. Intake 1.3 L. Output 0. General: No acute distress. Skin: Warm and dry. Conjunctivae are pink. Neck: Neck veins are not visible. Heart: Regular with S4 gallop. Lungs: Have equal breath sounds. No crackles. Abdomen: Soft and nontender. Bowel sounds are present. Extremities: Have no edema, clubbing, or cyanosis. LABORATORY DATA: Sodium 142, potassium 5.0, chloride 100, bicarbonate 24, BUN 55, creatinine 7.1, hemoglobin 10.2. IMPRESSION/PLAN: 1. End-stage kidney disease. She is due for hemodialysis today. Two potassium bath. Continued to use her routine outpatient dry weight. 2. Electrolytes/acid base/anemia all in target. 3. Hypertension. Her blood pressure control has been erratic as has her diabetes control. Her current blood pressure regimen includes amlodipine 10 mg daily, metoprolol 50 mg b.i.d. I will change her metoprolol to labetalol. cc: Hardy Kay MD
[2016-12-24] MEDS: EPOGEN SUBQ SCH (12:13)
[2016-12-24] MEDS: D50W SYRINGE IV PRN (12:35)
--- NOTE | 2016-12-24 13:14 | PROGRESS NOTE ---
DATE: 12/24/2016 Ms. Chaparro has not had any further seizure activity recognized. She told me she has not been aware of any more episodes. She does not feel impaired or intoxicated with recent medication adjustment. Thus far she has tolerated low-dose oxcarbazepine and we will plan to increase that dose after she finishes dialysis today. We will continue levetiracetam for short to intermediate term. No new suggestions today. cc: Dee Ennis III, MD
[2016-12-24] MEDS: LOVENOX SUBQ SCH (15:18)
[2016-12-24] MEDS: HUMULIN 70/30 SUBQ SCH (20:58)
[2016-12-24] MEDS: PRAVACHOL PO SCH (21:02)
[2016-12-24] MEDS: REMERON PO SCH (21:02)
[2016-12-25] MEDS: HUMALOG SUBQ SCH ×7 (01:16→23:55)
[2016-12-25 06:52] LABS: BASO% 1.2 % (0.0-0.8); EOS# 0.16 X1000 (0.0-0.7); EOS% 2.5 % (0.0-10.0); HEMATOCRIT 35.1 % (37.0-47.0); HEMOGLOBIN 10.7 g/dL (12.0-16.0); IMM GRAN# 0.02 X1000 (0.0-0.04); IMM GRAN% 0.3 % (0.0-0.5); LYMPH# 1.51 X1000 (1.2-3.4); LYMPH% 23.6 % (20.5-51.1); MANUAL DIFF NEEDED? YES; MCH 30.9 PG (27-31); MCHC 30.5 g/dL (33-37); MCV 101.4 FL (81-99); MONO# 1.16 X1000 (0.11-0.59); MONO% 18.1 % (1.7-9.3); MPV 9.9 FL (7.4-10.4); NEUT% 54.3 % (42.2-75.2); PLT 354 X1000 (130-400); RBC 3.46 XMIL (4.2-5.4)
[2016-12-25] MEDS: PROTONIX PO SCH ×2 (06:58→21:38)
[2016-12-25 07:24] LABS: BANDS 4 % (0-1); BASO 4 % (0-1); EOS 2 % (1-10); LYMPHS 22 % (21-51); MONO 12 % (1-9); POLYCHROM OCCASIONAL
[2016-12-25 07:37] LABS: CALCIUM 9.1 mg/dL (8.8-10.2); POTASSIUM 4.4 mmol/L (3.5-5.1)
[2016-12-25] MEDS: TRANDATE PO SCH ×2 (08:15→21:37)
[2016-12-25] MEDS: TRILEPTAL PO SCH ×2 (08:15→21:37)
[2016-12-25] MEDS: KEPPRA PO SCH ×2 (08:15→21:38)
[2016-12-25] MEDS: NORVASC PO SCH (08:15)
[2016-12-25] MEDS: REGLAN PO SCH ×2 (08:15→21:37)
[2016-12-25] MEDS: MIRALAX PO SCH (08:15)
[2016-12-25] MEDS: PROZAC PO SCH (08:15)
[2016-12-25] MEDS: CENTRUM TABLET PO SCH (08:15)
[2016-12-25] MEDS: HUMULIN 70/30 SUBQ SCH ×2 (10:09→21:36)
[2016-12-25] MEDS: APRESOLINE PO PRN (11:39)
--- NOTE | 2016-12-25 12:41 | PROGRESS NOTE ---
DATE: 12/25/2016 SUBJECTIVE: Patient without any complaints. She is sitting in bed watching television. She is in no distress. PHYSICAL: Temp 98 degrees, pulse 95, respiratory rate 13, BP 130/99, sat 99%.General: Patient is awake, alert, oriented. She is in no distress. She is feeling better. Neck: Supple. CV: Regular rate. Chest: Relatively clear. Abdomen: Soft. Extremities: Moves all extremities. Neurologic: No focal changes. Skin: Warm and dry. No rashes. LABS: CBC normal. CMP essentially normal. Glucose this morning was down to 54. ASSESSMENT: 1. Type 2 diabetes. We will decrease patient's nighttime insulin to 8 units. We will continue her a.m. insulin at 19. Unfortunately patient is incredibly sporadic in her oral intake which makes diabetes and insulin management nearly impossible. 2. Seizure disorder. Patient has had no further seizures while in the hospital. 3. Hypertension. Blood pressure was mildly elevated this morning but she has not had her a.m. medications yet. Will follow, will increase as needed. 4. Hypertension. 5. Hyperlipidemia. 6. Known history of cerebrovascular accident. 7. End-stage renal disease. Continue dialysis. 8. Depression. 9. Code status. Patient is full code. PLAN: We will move patient to the floor. We will continue to follow her blood sugars. Continue further orders. Continue her insulin and follow. Continue hemodialysis. cc: Wood Ruiz MD
[2016-12-25] MEDS: D50W SYRINGE IV PRN (13:57)
[2016-12-25] MEDS: LOVENOX SUBQ SCH (15:59)
--- NOTE | 2016-12-25 16:23 | PROGRESS NOTE ---
DATE: 12/25/2016 SUBJECTIVE: She feels well. She has been able to eat. No nausea or vomiting. No shortness of breath. OBJECTIVE: Vital Signs: Blood pressure 126/87, heart rate 97, respirations 13, afebrile. General: She is a young, pleasant, black female, in no distress. Skin: Warm and dry. Conjunctivae are pink. Neck: Neck veins are not distended. Trachea is midline. Heart: Regular with a gallop. Lungs: Have equal breath sounds. No crackles. Abdomen: Soft and nontender. Bowel sounds are present. Extremities: Have no edema, clubbing, or cyanosis. IMPRESSION: 1. End-stage kidney disease. She will have her routine hemodialysis on Tuesday. 2. Hypertension is in target. 3. Hyperglycemia is improved. 4. Seizures, none recently. cc: Hardy Kay MD
[2016-12-25] MEDS: REMERON PO SCH (21:37)
[2016-12-25] MEDS: PRAVACHOL PO SCH (21:38)
[2016-12-26] MEDS: HUMALOG SUBQ SCH ×5 (05:28→21:35)
[2016-12-26] MEDS: D50W SYRINGE IV PRN (05:40)
[2016-12-26] MEDS: PROTONIX PO SCH ×2 (06:21→21:48)
[2016-12-26] MEDS: HUMULIN 70/30 SUBQ SCH ×3 (09:01→22:00)
[2016-12-26] MEDS: MIRALAX PO SCH (09:01)
[2016-12-26] MEDS: REGLAN PO SCH ×2 (09:02→21:48)
[2016-12-26] MEDS: CENTRUM TABLET PO SCH (09:02)
[2016-12-26] MEDS: PROZAC PO SCH (09:02)
[2016-12-26] MEDS: NORVASC PO SCH (09:02)
[2016-12-26] MEDS: TRILEPTAL PO SCH ×2 (09:02→21:48)
[2016-12-26] MEDS: TRANDATE PO SCH ×2 (09:02→21:48)
[2016-12-26] MEDS: KEPPRA PO SCH ×2 (09:39→21:47)
--- NOTE | 2016-12-26 10:42 | PROGRESS NOTE ---
DATE: 12/26/2016 SUBJECTIVE: The patient has no new complaints this morning. She notes that her blood sugar was low yesterday. She states that she did eat this morning. OBJECTIVE: Vital Signs: Reviewed. Temperature 97 degrees, pulse 94, BP 174/108 to 149/93, saturation 100% on room air. General: Patient is awake, alert. She is sitting in the bed comfortably watching television. She is in no distress. HEENT: Normocephalic, atraumatic. Neck: Supple. CV: Regular rate. Chest: Relatively clear. Abdomen: Soft. Extremities: Moves all extremities. Neurologic: No changes. LABS: No new labs today. ASSESSMENT: 1. Type 2 diabetes. We will decrease her insulin slightly. Unfortunately the patient is extremely sporadic in her eating habits and she will decide not eat after she has been given her insulin. Again, discussed with her that she needs to tell the staff before they give her insulin if she decides not to eat. 2. Seizure disorder. No further seizures. 3. Hypertension. 4. Hyperlipidemia. 5. End-stage renal disease. Continue hemodialysis. Scheduled day is on Tuesday, tomorrow. 6. Depression. PLAN: We will continue to follow. Will continue to watch her sugars. So far she has had no further seizures. Will continue her current blood pressure medication of Norvasc and p.r.n. hydralazine, as well as labetalol 200 mg b.i.d. Will continue Keppra 750 b.i.d. and Trileptal 300 b.i.d. cc: Wood Ruiz MD
[2016-12-26] MEDS ORDERED: INSULIN PEN NEEDLES ONE (13:39)
[2016-12-26] MEDS: LOVENOX SUBQ SCH (16:52)
[2016-12-26] MEDS: ATIVAN IV PRN (18:53)
[2016-12-26] MEDS: REMERON PO SCH (21:47)
[2016-12-26] MEDS: PRAVACHOL PO SCH (21:48)
[2016-12-27] MEDS: ATIVAN IV PRN ×4 (00:37→12:47)
[2016-12-27] MEDS: HUMALOG SUBQ SCH ×6 (03:04→20:02)
[2016-12-27] MEDS ORDERED: LASIX PO ONE (03:52)
[2016-12-27] MEDS ORDERED: LASIX ONE (04:02)
[2016-12-27] MEDS ORDERED: LASIX IV ONE (04:06)
[2016-12-27 04:55] LABS: ALLEN TEST YES; BE -0.4 mmoll (-3.0-3.0); BLOOD TYPE ARTERIAL; DRAW SITE L RADIAL; METHB 1.5 % (0.0-1.5); O2(CT) 14.8 mL/dL (15.0-23.0); PCO2(98.6) 42 mmHg (35-45); PO2(98.6) 70 mmHg (60-100); SAMPLE BLOOD; SAO2 94.5 % (95.0-100.0); THB 11.5 g/dL (11.5-17.4); pH(98.6) 7.38 (7.35-7.45)
[2016-12-27 04:56] LABS: MODALITY BI PAP
[2016-12-27] MEDS: PROTONIX PO SCH ×2 (06:35→20:03)
[2016-12-27] MEDS: APRESOLINE PO PRN (06:42)
[2016-12-27 07:05] LABS: ALBUMIN 3.8 g/dL (3.5-5.0); CALCIUM 9.6 mg/dL (8.8-10.2)
[2016-12-27 07:08] LABS: POTASSIUM 6.4 mmol/L (3.5-5.1)
[2016-12-27] MEDS ORDERED: NS 2,000 ML MISC PRN (07:14)
[2016-12-27] MEDS ORDERED: TIGHT: 0.2 ML/HR MISC PRN (07:14)
[2016-12-27] MEDS ORDERED: HEPARIN IV PRN (07:14)
[2016-12-27 07:53] LABS: BASO% 0.4 % (0.0-0.8); EOS# 0.15 X1000 (0.0-0.7); EOS% 1.1 % (0.0-10.0); HEMATOCRIT 37.2 % (37.0-47.0); HEMOGLOBIN 11.6 g/dL (12.0-16.0); IMM GRAN# 0.04 X1000 (0.0-0.04); IMM GRAN% 0.3 % (0.0-0.5); LYMPH# 0.61 X1000 (1.2-3.4); LYMPH% 4.6 % (20.5-51.1); MANUAL DIFF NEEDED? YES; MCH 31.5 PG (27-31); MCHC 31.2 g/dL (33-37); MCV 101.1 FL (81-99); MONO# 1.08 X1000 (0.11-0.59); MONO% 8.2 % (1.7-9.3); MPV 10.1 FL (7.4-10.4); NEUT% 85.4 % (42.2-75.2); PLT 427 X1000 (130-400); RBC 3.68 XMIL (4.2-5.4)
[2016-12-27 07:54] LABS: BANDS 4 % (0-1); LYMPHS 4 % (21-51); MONO 2 % (1-9)
[2016-12-27] MEDS: HUMULIN 70/30 SUBQ SCH ×2 (08:39→21:35)
[2016-12-27] MEDS: TRANDATE PO SCH ×2 (08:41→20:05)
[2016-12-27] MEDS: TRILEPTAL PO SCH ×2 (08:41→20:03)
[2016-12-27] MEDS: EPOGEN SUBQ SCH (08:42)
[2016-12-27] MEDS: KEPPRA PO SCH ×2 (08:42→20:03)
[2016-12-27] MEDS: PROZAC PO SCH (08:58)
[2016-12-27] MEDS: REGLAN PO SCH ×2 (08:58→20:03)
[2016-12-27] MEDS: NORVASC PO SCH (08:58)
[2016-12-27] MEDS: MIRALAX PO SCH (08:59)
--- NOTE | 2016-12-27 09:07 | PROGRESS NOTE ---
DATE: 12/27/2016 SUBJECTIVE: She was moved back to the intensive care unit because she had another seizure. She had some shortness of breath thereafter and is currently on a BiPAP mask. Saturations are 100%. She is awake, alert, response, appropriate. OBJECTIVE: Vital Signs: Blood pressure 194/138, heart rate 109, respirations 30, afebrile. General: She is a young woman on BiPAP, no distress. Skin: Warm and dry. HEENT: Conjunctivae are pink. Neck: Neck veins were distended. Heart: Regular, tachycardic with an S4. Lungs: Have equal breath sounds. No crackles or wheezes. Abdomen: Soft, nontender. Bowel sounds present. Extremities: Have no edema, clubbing, or cyanosis. Laboratory Data: Sodium 139, potassium 6.4, chloride 99, bicarbonate 22, BUN 73, creatinine 8.5. Hemoglobin 11.6. IMPRESSION: 1. End-stage kidney disease with hyperkalemia. She will have her routine hemodialysis today. 2. Marked hypertension. We will titrate her regimen. 3. Anemia. She is receiving erythropoietin. cc: MD Narcisa Becker MD
--- NOTE | 2016-12-27 09:14 | Diag Imaging Result Document ---
PROCEDURE NAME: CHEST-PORTABLE - 12/27/2016 PORTABLE CHEST: COMPARISON: 12/02/2016. Heart size appears borderline enlarged and stable. There has been development of bilateral infiltrates, more extensive on the right than on the left. There is a possible tiny left pleural effusion. There is no pneumothorax seen. Central venous catheter remains in place. IMPRESSION: Development of bilateral infiltrates, most extensive on the right. Considerations include pneumonia, pulmonary edema, and possibly adult respiratory distress syndrome.
[2016-12-27] MEDS: CENTRUM TABLET PO SCH (09:45)
[2016-12-27] MEDS: LABETALOL IV PRN (10:38)
[2016-12-27] MEDS ORDERED: NS 2,000 ML ONE (12:05)
[2016-12-27] MEDS: LABETALOL 200 MG in NS 160 ML IV SCH (12:47)
--- NOTE | 2016-12-27 15:02 | PROGRESS NOTE ---
DATE: 12/27/2016 SUBJECTIVE: The patient was transferred to the intensive care unit earlier this morning after she went into respiratory distress on the medical floor. The patient was noted to have some seizure activity as well prior to transfer. At this time, the patient is tachypneic and hypertensive. OBJECTIVE: Vital Signs: Temperature 98.3 degrees, blood pressure 181/121, heart rate 102, respirations 20, O2 saturations 95% on 100% BiPAP. General: This is a young female, lying in bed, in no acute distress. Head: Normocephalic, atraumatic. Heart: S1, S2 normal. Tachycardic. Lungs: Coarse breath sounds bilaterally with equal air entry bilaterally. Abdomen: Positive bowel sounds. Soft, nontender, nondistended. Extremities: No edema. No cyanosis. No calf tenderness. Neurologic: The patient is awake and alert. She is able to move all 4 extremities. LABS: White blood cell count 13, hemoglobin 11, hematocrit 37. Platelets 427,000. ABG: PH of 7.38, pCO2 42, pO2 70, O2 sat 91%. Sodium 139, potassium 6.4, chloride 99, CO2 22. BUN 73, creatinine 8.5, glucose 193. ASSESSMENT AND PLAN: 1. Acute hypoxemic respiratory failure. Multifactorial. This may be volume related. The patient is due for dialysis today. We will also consult pulmonary for further recommendations. The patient will continue on BiPAP for now, plus bronchodilator therapy. 2. Accelerated hypertension. The patient's oral antihypertensives have been adjusted. We will start the patient on a labetalol drip. 3. End-stage renal disease. The patient is due for dialysis today. 4. Hyperkalemia. This will be addressed during dialysis today. 5. Volume overload. This will be addressed during dialysis today. 6. Seizure disorder. Continue on Trileptal and Keppra as directed by Dr. Ennis. 7. Uncontrolled insulin-dependent diabetes mellitus. Continue on Humulin 70/30, plus sliding scale insulin. 8. Deep vein thrombosis prophylaxis. Continue on Lovenox. cc: Narcisa Pack MD
[2016-12-27] MEDS: LOVENOX SUBQ SCH (16:51)
--- NOTE | 2016-12-27 17:00 | CONSULTATION ---
DATE OF CONSULTATION: 12/27/2016 REQUESTING PHYSICIAN: Dr. Pack. REASON FOR CONSULTATION: Respiratory failure. HISTORY OF PRESENT ILLNESS: Ms. Chaparro is a 36-year-old black female with long history of diabetes mellitus, end-stage renal disease on hemodialysis, history of seizure disorder, who was initially admitted to this hospital 12/02/2016 with abdominal pain, nausea, and vomiting. She had some clinical improvement. The patient developed recurrent seizures last evening. She has had progressive increase in oxygen requirements. She is now moved from room air to 100% BiPAP. She is awake and alert and will follow commands but is tachypneic. PAST MEDICAL HISTORY/PROBLEM LIST: 1. End-stage renal disease, on hemodialysis. 2. Type 1 diabetes mellitus with multiple admissions for DKA. 3. Seizure disorder. 4. Diastolic heart failure. 5. Hypertension. 6. Gastroesophageal reflux disease. 7. Diabetic neuropathy. 8. History of stroke. 9. History of urinary tract infections. SOCIAL HISTORY: No alcohol or tobacco use listed. FAMILY HISTORY: Notable for diabetes, stroke, and hypertension. REVIEW OF SYSTEMS: Limited given BiPAP placement. PHYSICAL EXAMINATION: General: Reveals a thin black female, who is on BiPAP. She has mild increased work of breathing. Vital Signs: Blood pressure 181/121, heart rate 102, respiratory rate 28, oxygen saturation 100% on BiPAP. HEENT: Pupils are equal and reactive. Oropharynx evaluation is limited with BiPAP in place. Neck: Supple. Chest: Reveals diffuse crackles and rhonchi bilaterally. Cardiac: Distant heart sounds. Normal S1. Normal S2. Abdomen: Soft without hepatosplenomegaly. Extremities: Reveal trace edema. LABORATORIES: Chest x-ray reveals new diffuse bilateral pulmonary infiltrates. Arterial blood gas reveals a pH of 7.38, pCO2 of 42, PO2 of 70 on BiPAP 100%, inspiratory pressure of 15, expiratory pressure 5. IMPRESSION: This is a 36-year-old with acute hypoxemic respiratory failure and diffuse bilateral infiltrates following several seizures. She now has significant hypertension. Bilateral infiltrates may be related either to an aspiration event or to hypertensive crisis. She is currently scheduled for hemodialysis. Hopefully the infiltrates will rapidly improve, which would be most consistent with a hypertensive crisis/acute pulmonary edema. If she does not rapidly improve then she may have had an aspiration event. RECOMMENDATIONS: 1. Continue BiPAP pending hemodialysis. 2. Add antibiotics if she does not rapidly improve. 3. Additional recommendations pending hospital course. cc: MD Narcisa Huerta MD
--- NOTE | 2016-12-27 18:16 | PROGRESS NOTE ---
DATE: 12/27/2016 Ms. Chaparro had more apparent seizures associated with respiratory distress and returned to the ICU. There were some low blood sugars recorded (40s) over the weekend, but I am not sure that correlated temporally with the seizures. She had received lorazepam 2 mg dose each day for several days and then did not get lorazepam for 2 days over the weekend until that was given again yesterday. She has seemed to tolerate her seizure medicine regimen including levetiracetam 750 mg q.12 hours and recently added oxcarbazepine 300 mg b.i.d. The computer record review looks like she has been able to take oxcarbazepine p.o. without missing doses. I will increase that to 600 mg b.i.d. and follow her with you. cc: MD Narcisa Flores III, MD MTDD
[2016-12-27] MEDS: NORCO-7.5 PO PRN (20:02)
[2016-12-27] MEDS: PRAVACHOL PO SCH (20:03)
[2016-12-27] MEDS: REMERON PO SCH (20:03)
[2016-12-28] MEDS: HUMALOG SUBQ SCH ×7 (00:05→23:20)
[2016-12-28 04:38] LABS: ALLEN TEST YES; BE -1.6 mmoll (-3.0-3.0); BLOOD TYPE ARTERIAL; DRAW SITE R RADIAL; MODALITY CANNULA; O2(CT) 20.2 mL/dL (15.0-23.0); PCO2(98.6) 47 mmHg (35-45); PO2(98.6) 80 mmHg (60-100); SAMPLE BLOOD; SAO2 96.1 % (95.0-100.0); THB 15.4 g/dL (11.5-17.4); pH(98.6) 7.33 (7.35-7.45)
[2016-12-28 05:43] LABS: HEMOGLOBIN 10.8 g/dL (12.0-16.0); MCH 31.5 PG (27-31); MCHC 30.9 g/dL (33-37); MPV 10.1 FL (7.4-10.4); RBC 3.43 XMIL (4.2-5.4)
[2016-12-28 06:06] LABS: ALBUMIN 3.6 g/dL (3.5-5.0); CALCIUM 9.3 mg/dL (8.8-10.2); POTASSIUM 6.5 mmol/L (3.5-5.1)
[2016-12-28] MEDS: PROTONIX PO SCH ×2 (06:09→20:01)
[2016-12-28] MEDS ORDERED: HEPARIN IV PRN (06:22)
[2016-12-28] MEDS ORDERED: TIGHT: 0.2 ML/HR MISC PRN (06:22)
[2016-12-28] MEDS ORDERED: NS 2,000 ML MISC PRN (06:22)
--- NOTE | 2016-12-28 07:21 | Diag Imaging Result Document ---
PROCEDURE NAME: CHEST-PORTABLE - 12/28/2016 PORTABLE CHEST: COMPARISON: Compared to 12/27/2016. FINDINGS: No change in the double-lumen right-sided catheter. There are dense bilateral infiltrates. The lungs are poorly expanded. The heart remains enlarged. Considering the differences in technique, I do not believe there has been significant change since the prior exam. IMPRESSION: Persistent dense bilateral infiltrates with no significant improvement.
[2016-12-28] MEDS: HUMULIN 70/30 SUBQ SCH ×2 (08:16→21:05)
[2016-12-28] MEDS ORDERED: HEPARIN ONE (08:17)
[2016-12-28] MEDS ORDERED: NS 2,000 ML ONE (08:17)
[2016-12-28] MEDS: TRANDATE PO SCH ×2 (08:24→20:02)
[2016-12-28] MEDS: KEPPRA PO SCH ×2 (08:32→20:01)
[2016-12-28] MEDS: MIRALAX PO SCH (08:33)
[2016-12-28] MEDS: REGLAN PO SCH ×2 (08:33→20:02)
[2016-12-28] MEDS: CENTRUM TABLET PO SCH (08:33)
[2016-12-28] MEDS: TRILEPTAL PO SCH ×2 (08:33→20:01)
--- NOTE | 2016-12-28 10:36 | Diag Imaging Result Document ---
PROCEDURE NAME: CT THORAX W/O CONTRAST - 12/28/2016 CT THORAX WITHOUT CONTRAST: TECHNIQUE: No contrast administered per request of the referring provider. A dose reduction protocol was used. No comparison CT thorax is available. FINDINGS: There are patchy bilateral infiltrates and atelectasis as well as more generalized hazy infiltrates bilaterally. There are small bilateral pleural effusions with adjacent posterior lower lobe dependent or compressive atelectasis. There is no pneumothorax identified. There is mild mediastinal adenopathy which may be reactive. Heart size appears upper normal. There is a central venous catheter with its tip at the distal superior vena cava. The right thyroid lobe is noted to be mildly enlarged. IMPRESSION: 1. Hazy bilateral infiltrates or edema with patchy areas of more dense infiltrate or atelectasis. Small bilateral pleural effusions with adjacent bilateral posterior lower lobe dependent or compressive atelectasis. These findings may relate to pneumonitis/pneumonia and/or pulmonary edema. 2. Mild mediastinal adenopathy which may be reactive. Upper normal heart size. 3. Mildly enlarged right thyroid lobe noted.
--- NOTE | 2016-12-28 11:15 | PROGRESS NOTE ---
DATE: 12/28/2016 SUBJECTIVE: No complaints this morning. No shortness of breath, nausea, vomiting. OBJECTIVE: Vital Signs: Blood pressure 126/84, heart rate 90, respiration 18, afebrile. General: She is in no acute distress. Skin: Warm and dry. HEENT: Conjunctivae are pink. Heart: Regular with an S4. Lungs: Have equal breath sounds. No crackles. Abdomen: Soft, nontender. Bowel sounds present. Extremities: Have no edema, clubbing, or cyanosis. LABORATORY DATA: Sodium 136, potassium 6.5, chloride 191, bicarbonate 22, BUN 52, creatinine 6.9. Hemoglobin 10.8. IMPRESSIONS: 1. Hyperkalemia and possible pulmonary edema by CT. Repeat dialysis today with 2 potassium bath for 2 hours and 2 L ultrafiltration. 2. Anemia is in target. 3. Acid base, in target. cc: Hardy Kay MD
[2016-12-28] MEDS: NORVASC PO SCH (13:24)
[2016-12-28] MEDS: PROZAC PO SCH (13:28)
--- NOTE | 2016-12-28 14:37 | PROGRESS NOTE ---
DATE: 12/28/2016 PATIENT LOCATION: She is in ICU bed 6. Ms. Chaparro has not had any more seizures. Today, she is much more alert, more attentive, more spontaneous. She does not have any specific complaints right now. She does not appear to be intoxicated with seizure medicines at this point, so I would continue current doses and follow clinically. I remain optimistic that seizure can be controlled. Thanks for allowing me to follow Ms. Chaparro. cc: Dee Ennis III, MD
[2016-12-28] MEDS: MERREM 500 MG in NS 50 ML IV SCH (15:21)
[2016-12-28] MEDS: LOVENOX SUBQ SCH (16:01)
[2016-12-28] MEDS: ATIVAN IV PRN ×2 (19:50→22:47)
[2016-12-28] MEDS: PRAVACHOL PO SCH (20:01)
[2016-12-28] MEDS: REMERON PO SCH (20:02)
--- NOTE | 2016-12-28 20:34 | PROGRESS NOTE ---
DATE: 12/28/2016 SUBJECTIVE: The patient is more awake and alert this morning. She is on nasal cannula. No acute events noted overnight. OBJECTIVE: Vital Signs: Temperature 98.5 degrees, blood pressure 132/83, heart rate 97, respirations 20, O2 saturations 98% on 1 L nasal cannula. General: This is a young female lying comfortably in bed, in no acute distress. Head: Normocephalic, atraumatic. Heart: S1, S2. Normal. Regular rate and rhythm. Lungs: Equal air entry bilaterally. Coarse breath sounds. Abdomen: Positive bowel sounds. Soft, nontender, nondistended. Extremities: No edema. No cyanosis. No calf tenderness. Neurologic: The patient is alert oriented x3. LABORATORY: White blood cell count 11, hemoglobin 10, hematocrit 35, platelets 388,000. Sodium 136, potassium 6.5, chloride 91, CO2 22, BUN 52, creatinine 6.9, glucose 154. ASSESSMENT AND PLAN: 1. Acute hypoxemic respiratory failure. Improved. Continue on bronchodilator therapy, intravenous antibiotics, supplemental oxygen and volume control via dialysis. 2. Volume overload. This will be addressed during dialysis. 3. Hyperkalemia. This will be addressed during dialysis. 4. Leukocytosis. Improved. 5. End-stage renal disease. The patient is due for dialysis today. 6. Diabetes mellitus type 2. Uncontrolled. 7. Insulin-dependent diabetes mellitus, type 1. Continue on sliding scale insulin coverage. 8. Seizure disorder. Improved. Continue on Keppra and Trileptal. 9. Hypertension. Controlled. Continue on the current antihypertensive therapy. 10. Diabetic gastroparesis. Stable. 11. Deep vein thrombosis prophylaxis. Continue on Lovenox. cc: Narcisa Pack MD
[2016-12-28] MEDS ORDERED: INSULIN PEN NEEDLES ONE (21:03)
[2016-12-28] MEDS: LABETALOL IV PRN (23:18)
[2016-12-29] MEDS: LABETALOL IV PRN ×2 (03:00→14:12)
[2016-12-29] MEDS: HUMALOG SUBQ SCH ×3 (03:36→12:46)
[2016-12-29 04:29] LABS: ALLEN TEST YES; BE -0.7 mmoll (-3.0-3.0); BLOOD TYPE ARTERIAL; DRAW SITE R RADIAL; METHB 0.2 % (0.0-1.5); O2(CT) 12.4 mL/dL (15.0-23.0); PCO2(98.6) 50 mmHg (35-45); PO2(98.6) 52 mmHg (60-100); SAMPLE BLOOD; SAO2 88.6 % (95.0-100.0); THB 10.3 g/dL (11.5-17.4); pH(98.6) 7.32 (7.35-7.45)
[2016-12-29 04:30] LABS: MODALITY CANNULA
[2016-12-29 04:40] LABS: HEMATOCRIT 33.6 % (37.0-47.0); HEMOGLOBIN 10.6 g/dL (12.0-16.0); MCH 31.4 PG (27-31); MCHC 31.5 g/dL (33-37); MCV 99.4 FL (81-99); MPV 9.9 FL (7.4-10.4); RBC 3.38 XMIL (4.2-5.4)
[2016-12-29] MEDS: LABETALOL 200 MG in NS 160 ML IV SCH (05:35)
[2016-12-29 06:16] LABS: ALBUMIN 3.7 g/dL (3.5-5.0); CALCIUM 8.9 mg/dL (8.8-10.2); POTASSIUM 5.5 mmol/L (3.5-5.1)
[2016-12-29] MEDS: PROTONIX PO SCH ×2 (06:20→20:18)
[2016-12-29] MEDS ORDERED: TIGHT: 0.2 ML/HR MISC PRN (07:27)
[2016-12-29] MEDS ORDERED: HEPARIN IV PRN (07:27)
[2016-12-29] MEDS ORDERED: NS 2,000 ML MISC PRN (07:27)
--- NOTE | 2016-12-29 07:51 | Diag Imaging Result Document ---
PROCEDURE NAME: CHEST-2 VIEWS - 12/29/2016 FRONTAL AND LATERAL CHEST, TWO VIEWS: COMPARISON: 12/28/2016. FINDINGS: The lungs are hyperexpanded. There is an increased AP diameter to the chest. The pulmonary vessels are less distended. Decreased bilateral infiltrates. No change in the double lumen right sided catheter. No pneumothorax. IMPRESSION: Interval improvement with decreased infiltrate.
[2016-12-29] MEDS: TRILEPTAL PO SCH ×2 (08:00→20:19)
[2016-12-29] MEDS: MIRALAX PO SCH ×2 (08:00→20:21)
[2016-12-29] MEDS: TRANDATE PO SCH ×2 (08:00→20:18)
[2016-12-29] MEDS: REGLAN PO SCH ×2 (08:01→20:21)
[2016-12-29] MEDS: KEPPRA PO SCH ×2 (08:01→20:19)
[2016-12-29] MEDS: CENTRUM TABLET PO SCH (08:01)
[2016-12-29] MEDS ORDERED: NS 2,000 ML ONE (08:13)
[2016-12-29] MEDS: HUMULIN 70/30 SUBQ SCH (08:15)
[2016-12-29] MEDS ORDERED: LABETALOL IV ONE (08:32)
--- NOTE | 2016-12-29 08:39 | PROGRESS NOTE ---
DATE: 12/29/2016 PATIENT LOCATION: ICU bed 6. Ms. Chaparro remains awake, alert, attentive. She seems appropriate. She was smiling sweetly as always. She has not had any further definite recognized clinical seizure in the last few days. I reviewed her current management with dual seizure medications with her. She seems to be tolerating that well. There is no evidence of toxicity. I do not have any new suggestion today. cc: Dee Ennis III, MD
--- NOTE | 2016-12-29 10:10 | PROGRESS NOTE ---
DATE: 12/29/2016 SUBJECTIVE: She relates no new complaints. No melena. No nausea, vomiting, or abdominal pain. OBJECTIVE: Vital Signs: Blood pressure 154/100, heart rate 92, respirations 17, afebrile. Intake 1.1 L. Output 1.4 L. General Appearance: In no acute distress. Skin: Warm and dry. Eyes: Conjunctivae are pink. Neck: Neck veins not appreciated. Heart: Regular with a gallop. Lungs: Have equal breath sounds. No crackles. Abdomen: Soft and nontender. Bowel sounds are present. Extremities: Have trace edema. No clubbing or cyanosis. LABORATORY DATA: Sodium 136, potassium 5.5, chloride 90, bicarbonate 22. BUN 47, creatinine 5.0, hemoglobin 10.6. IMPRESSION: 1. End-stage kidney disease. She will have her routine hemodialysis today. 2. Hyperkalemia. She has received dialysis 2 days in a row and her potassium remains 5.5. She has no symptoms of GI bleeding and her hemoglobin is stable. She is eating a high potassium diet. Review of her medications finds no offending agents. Observe. 3. Hypertension. Blood pressure is much worse today. She has been on labetalol drip for several hours. I will give a bolus dose and then stop the drip. Will add clonidine 0.1 t.i.d. cc: Hardy Kay MD
[2016-12-29] MEDS: EPOGEN SUBQ SCH (12:31)
[2016-12-29] MEDS: PROZAC PO SCH (12:31)
[2016-12-29] MEDS: NORVASC PO SCH (12:31)
[2016-12-29] MEDS: PRINIVIL PO SCH (12:32)
[2016-12-29] MEDS: NORCO-7.5 PO PRN (14:12)
[2016-12-29] MEDS: MERREM 500 MG in NS 50 ML IV SCH (14:15)
--- NOTE | 2016-12-29 14:52 | PROGRESS NOTE ---
DATE: 12/29/2016 SUBJECTIVE: The patient is awake and alert. The patient appears to be depressed. She does not have any complaints at this time. Her blood pressure is elevated this morning. OBJECTIVE: Vital Signs: Temperature 97.4 degrees, blood pressure 165/131, heart rate 90, respirations 17, O2 saturations 100% on 3 L nasal cannula. General: This is a young female, who appears depressed, lying in bed, in no acute distress. Head: Normocephalic, atraumatic. Heart: S1, S2 normal. Regular rate and rhythm. Lungs: Equal air entry bilaterally. No crackles, no rales. Abdomen: Positive bowel sounds. Soft, nontender, nondistended. Extremities: No edema. No cyanosis. No calf tenderness. Neurologic: The patient is alert and oriented x3. The patient does have a flat affect. LABS: White blood cell count 6.8, hemoglobin 10, hematocrit 33, platelets 386,000. Sodium 136, potassium 5.5, chloride 90, CO2 22, BUN 47, creatinine 5. Glucose 308. Chest x-ray shows decreased pulmonary infiltrates. ASSESSMENT AND PLAN: 1. Acute hypoxemic respiratory failure. Improved. From a respiratory standpoint the patient is improving. Continue on bronchodilator therapy, supplemental oxygen, and IV antibiotic therapy. 2. Volume overload. This will be addressed during dialysis. 3. Accelerated hypertension. Management as per the marketing communications associate. 4. Gastroparesis. Stable. Continue on Reglan. 5. Seizure disorder. Continue on Keppra and Trileptal. 6. Depression. Continue on Prozac. 7. Constipation. Will order a Dulcolax suppository, as well as a dose of lactulose. The patient is already on MiraLAX. 8. Uncontrolled insulin-dependent diabetes mellitus, Type 1. Will increase the patient's a.m. 70/30 dosage to 25 units. 9. Deep vein thrombosis prophylaxis. Continue on Lovenox. cc: Naricsa Pack MD
[2016-12-29] MEDS: LOVENOX SUBQ SCH (16:02)
[2016-12-29] MEDS: HUMULIN R SUBQ SCH ×2 (16:07→20:36)
[2016-12-29] MEDS ORDERED: LACTULOSE PO ONE (17:00)
[2016-12-29] MEDS: PRAVACHOL PO SCH (20:17)
[2016-12-29] MEDS: REMERON PO SCH (20:20)
[2016-12-29] MEDS: DULCOLAX PR SCH (20:21)
[2016-12-29] MEDS ORDERED: HUMULIN N SUBQ SCH (21:00)
[2016-12-29] MEDS ORDERED: CATAPRES PO SCH (21:00)
[2016-12-30 04:27] LABS: ALLEN TEST YES; BE 3.1 mmoll (-3.0-3.0); BLOOD TYPE ARTERIAL; DRAW SITE R RADIAL; METHB 0.7 % (0.0-1.5); O2(CT) 15.7 mL/dL (15.0-23.0); PCO2(98.6) 49 mmHg (35-45); PO2(98.6) 106 mmHg (60-100); SAMPLE BLOOD; THB 11.5 g/dL (11.5-17.4); pH(98.6) 7.38 (7.35-7.45)
[2016-12-30 04:28] LABS: MODALITY CANNULA
[2016-12-30] MEDS: PROTONIX PO SCH ×2 (06:02→20:25)
[2016-12-30] MEDS: HUMULIN R SUBQ SCH ×4 (06:03→20:28)
[2016-12-30 06:30] LABS: ALBUMIN 3.8 g/dL (3.5-5.0); CALCIUM 9.3 mg/dL (8.8-10.2); POTASSIUM 4.1 mmol/L (3.5-5.1)
--- NOTE | 2016-12-30 07:07 | PROGRESS NOTE ---
DATE: 12/30/2016 SUBJECTIVE: No new complaints. No nausea or vomiting. No shortness of breath or chest discomfort. OBJECTIVE: Vital Signs: Blood pressure 137/100, heart rate 94, respirations 23 and afebrile. General: She is in no distress. Skin: Warm and dry. HEENT: Conjunctivae are pink. Neck: Neck veins are not visible. Heart: Regular with a gallop. No murmurs. Lungs: Equal breath sounds. No crackles. Abdomen: Soft, nontender. Bowel sounds present. Extremities: No edema, clubbing, or cyanosis. LABORATORY DATA: Sodium 142, potassium 4.1, chloride 99, bicarbonate 27, BUN 29, creatinine 4.1, and hemoglobin 10.6. IMPRESSION: 1. End-stage kidney disease. She will have her routine dialysis tomorrow. 2. Hypertension. Currently on IV labetalol. I doubled her clonidine and her amlodipine this morning. Attempt to wean the labetalol over the day. cc: Hardy Kay MD
[2016-12-30] MEDS: CENTRUM TABLET PO SCH (08:11)
[2016-12-30] MEDS: MIRALAX PO SCH ×2 (08:11→20:25)
[2016-12-30] MEDS: KEPPRA PO SCH ×2 (08:12→20:27)
[2016-12-30] MEDS: TRANDATE PO SCH ×2 (08:13→20:26)
[2016-12-30] MEDS: NORVASC PO SCH ×2 (08:13→20:26)
[2016-12-30] MEDS: CATAPRES PO SCH ×2 (08:13→20:42)
[2016-12-30] MEDS: REGLAN PO SCH ×2 (08:13→20:25)
[2016-12-30] MEDS: PROZAC PO SCH (08:14)
[2016-12-30] MEDS: PRINIVIL PO SCH (08:14)
[2016-12-30] MEDS: TRILEPTAL PO SCH ×2 (08:14→20:27)
--- NOTE | 2016-12-30 08:27 | PROGRESS NOTE ---
DATE: 12/30/2016 Ms. Chaparro is asleep, easily waked. Alert and attentive. She has not had any more seizures recognized clinically. There is no new neurologic problems. I would continue current management with oxcarbazepine and levetiracetam, follow clinically, and consider adjusting medications later as an outpatient. If she has further seizures, we can reconsider management. cc: Dee Ennis III, MD MTDD
[2016-12-30] MEDS: ZOFRAN IV PRN (08:38)
[2016-12-30] MEDS ORDERED: HUMULIN N SUBQ SCH ×2 (09:00→21:00)
[2016-12-30] MEDS: LABETALOL IV PRN (12:04)
--- NOTE | 2016-12-30 12:07 | PROGRESS NOTE ---
DATE: 12/30/2016 SUBJECTIVE: The patient is resting comfortably in bed. She is currently on a labetalol drip. The patient was noted to be hypoglycemic this morning. OBJECTIVE: Vital Signs: Temperature 97 degrees, blood pressure 155/114, heart rate 92, respirations 13, O2 saturation is 100% on 3 L nasal cannula. General: This is a young female, lying in bed, in no acute distress. Head: Normocephalic, atraumatic. Heart : S1, S2. Normal. Regular rate and rhythm. Lungs: Clear to auscultation bilaterally. Abdomen: Positive bowel sounds. Soft, nontender, nondistended. Extremities: No edema. No cyanosis. No calf tenderness. Neurologic: The patient is alert and oriented x3. LABS: Sodium 142, potassium 4.1, chloride 99, CO2 27, BUN 29, creatinine 4.1, glucose 127, phosphorus 5.2. ASSESSMENT AND PLAN: 1. Acute hypoxemic respiratory failure. Improving. Continue on bronchodilator therapy, supplemental oxygen, and IV antibiotic therapy. 2. Uncontrolled DM type 1 with hypoglycemia. Will decrease the NPH dosage. 3. Volume overload. Improved. 4. Accelerated hypertension. The logistician is titrating the patient's antihypertensives. Will continue to attempt to wean the patient off of the labetalol drip. 5. Gastroparesis. Stable. Continue on Reglan. 6. Seizure disorder. Continue on Keppra and Trileptal. 7. Constipation. The patient remains constipated. We will check an abdominal x -ray. Continue on MiraLAX, Dulcolax, and will add lactulose. 8. Situational depression. Continue on Prozac. 9. Deep vein thrombosis prophylaxis. Continue on Lovenox. 10. Will consult physical therapy. 11. Disposition. The patient can be transferred to CICU once she is off the labetalol drip. cc: Narcisa Pack MD MTDD
[2016-12-30] MEDS: D50W SYRINGE IV PRN ×2 (13:02→23:47)
[2016-12-30] MEDS: MERREM 500 MG in NS 50 ML IV SCH (14:38)
--- NOTE | 2016-12-30 14:41 | Diag Imaging Result Document ---
PROCEDURE NAME: ABDOMEN FLAT/UPRIGHT - 12/30/2016 FLAT AND UPRIGHT RADIOGRAPH OF THE ABDOMEN, TWO VIEWS: COMPARISON: 12/02/2016. FINDINGS: There are unremarkable bowel gas and stool patterns. There is no evidence of bowel obstruction. There is no evidence of large volume free abdominal gas. There is no definite organomegaly. IMPRESSION: No evidence of acute abdominal pathology identified.
[2016-12-30] MEDS: LOVENOX SUBQ SCH (16:56)
[2016-12-30] MEDS: PRAVACHOL PO SCH (20:25)
[2016-12-30] MEDS: REMERON PO SCH (20:25)
[2016-12-30] MEDS: DULCOLAX PR SCH (20:32)
[2016-12-30] MEDS ORDERED: LACTULOSE PO SCH (21:00)
[2016-12-30] MEDS: ATIVAN IV PRN (23:24)
[2016-12-31 05:02] LABS: HEMATOCRIT 36.6 % (37.0-47.0); HEMOGLOBIN 11.2 g/dL (12.0-16.0); MCHC 30.6 g/dL (33-37); MCV 101.4 FL (81-99); MPV 9.8 FL (7.4-10.4); RBC 3.61 XMIL (4.2-5.4)
[2016-12-31 05:30] LABS: ALBUMIN 3.8 g/dL (3.5-5.0); CALCIUM 9.2 mg/dL (8.8-10.2); POTASSIUM 4.8 mmol/L (3.5-5.1)
[2016-12-31] MEDS: PROTONIX PO SCH ×2 (06:13→21:19)
[2016-12-31] MEDS: LABETALOL IV PRN (06:14)
[2016-12-31] MEDS: HUMULIN R SUBQ SCH ×4 (06:17→21:14)
--- NOTE | 2016-12-31 06:18 | Diag Imaging Result Document ---
PROCEDURE NAME: CHEST-PORTABLE - 12/31/2016 PORTABLE CHEST: COMPARISON: 12/29/2016. FINDINGS: No change in the double lumen right-sided catheter. The heart remains enlarged. There is mild vascular distention. No pleural effusion is identified. No consolidation. IMPRESSION: Considering the differences in technique, I do not believe there has been a significant change since the prior study.
[2016-12-31] MEDS: CARDENE 40 MG/NS 40 MG/200 ML PIGGYBACK IV SCH ×2 (08:09→19:55)
--- NOTE | 2016-12-31 08:15 | PROGRESS NOTE ---
DATE: 12/31/2016 SUBJECTIVE: She has had some seizures overnight and she is awake, but did not really interact with me today. OBJECTIVE: Vital Signs: Blood pressure 172/123, heart rate 95, respirations 12, afebrile. Intake 1.7 L. Output 0. General: No acute distress. Mental status as above. Skin: Warm and dry. Pupils are equal. Conjunctivae are pink. Neck: Neck veins are not appreciated. Trachea is midline. Heart: Regular with a gallop and tachycardia. Lungs: Have equal breath sounds. No crackles or wheezes. Abdomen: Soft, nontender. Bowel sounds are present. Extremities: No edema, clubbing, or cyanosis. LABORATORY DATA: Sodium 144, potassium 4.8, chloride 101, bicarbonate 25, BUN 37, creatinine 6.1. IMPRESSION: 1. Hypertension. Very poor control and she is having seizures again. As such, I think we have to treat this like hypertensive crisis. I added nicardipine to her regimen today. I titrated her other blood pressure medicines yesterday. I increased her labetalol to 400 mg 3 times a day. I have reviewed her MAR and it looks like she has received her medications, and been able to swallow them. No doses have been missed. 2. End-stage renal disease. Dialysis today. cc: Hardy Kay MD
[2016-12-31] MEDS: CATAPRES PO SCH ×2 (08:20→21:20)
[2016-12-31] MEDS: CENTRUM TABLET PO SCH (08:20)
[2016-12-31] MEDS: TRANDATE PO SCH ×3 (08:20→16:45)
[2016-12-31] MEDS: EPOGEN SUBQ SCH (08:20)
[2016-12-31] MEDS: TRILEPTAL PO SCH ×2 (08:21→21:20)
[2016-12-31] MEDS: KEPPRA PO SCH ×2 (08:21→21:19)
[2016-12-31] MEDS: PRINIVIL PO SCH (08:21)
[2016-12-31] MEDS: PROZAC PO SCH (08:21)
[2016-12-31] MEDS: NORVASC PO SCH ×2 (08:21→21:20)
[2016-12-31] MEDS ORDERED: HEPARIN IV PRN (09:15)
[2016-12-31] MEDS ORDERED: NS 2,000 ML MISC PRN (09:15)
[2016-12-31] MEDS ORDERED: TIGHT: 0.2 ML/HR MISC PRN (09:15)
[2016-12-31] MEDS ORDERED: NS 2,000 ML ONE (09:19)
[2016-12-31] MEDS ORDERED: HEPARIN ONE (09:19)
--- NOTE | 2016-12-31 11:59 | PROGRESS NOTE ---
DATE: 12/31/2016 The patient is in the ICU in bed 6. Ms. Chaparro had done very well for several days and then she had another seizure. This time, there was hypoglycemia. She has not missed any oxcarbazepine and levetiracetam doses. I spoke to her during dialysis, she is sluggish, but I do not see anything new neurologically. In light of her renal failure, I do not think we should increase the seizure medicine doses at this point. We can consider adding another drug later. I am optimistic that controlling blood sugar will result in improved seizure control. Thanks for allowing me to follow Ms. Chaparro. cc: MD GARY Flores III
[2016-12-31] MEDS: ATIVAN IV PRN (12:23)
--- NOTE | 2016-12-31 13:04 | PROGRESS NOTE ---
DATE: 12/31/2016 SUBJECTIVE: The patient was noted to be hypoglycemic last night, and as a resulted, started having seizures again. This morning, the patient is very sleepy and lethargic. Also, her blood pressure remains elevated. OBJECTIVE: Vital Signs: Temperature 96.7 degrees, blood pressure 184/124, heart rate 89, respirations 16, O2 saturations 100% on 2 L nasal cannula. General: This is a young, chronically ill-appearing female lying in bed, in no acute distress. Head: Normocephalic , atraumatic. Heart: S1, S2. Normal. Regular rate and rhythm. Lungs: Clear to auscultation bilaterally. No wheezes, no rales. No rhonchi. Abdomen: Positive bowel sounds. Soft, nontender, nondistended. Extremities: No edema. No cyanosis. Neurologic: The patient is lethargic. She is able to move all 4 extremities. LABS: White blood cell count 6.1, hemoglobin 11, hematocrit 36, platelets 399, 000. Sodium 144, potassium 4.8, chloride 101, CO2 25, BUN 37, creatinine 6.1, glucose 212. ASSESSMENT AND PLAN: 1. Hypoglycemia. The patient received 5 units of NPH last night around 8:00 pm , and this resulted in the patient being hypoglycemic throughout the night. At this time, we will hold the patient's long-acting insulin and monitor the blood sugars closely. 2. Accelerated hypertension. The patient has been started on a Cardene drip by Dr. Kay and he is titrating the patient's oral medications. We will continue to monitor for improvement. 3. Seizure disorder. The patient had seizure activity last night. However, I think this was probably related to the patient's hypoglycemic episodes. We will continue on Keppra and Trileptal as ordered. 4. Acute hypoxemic respiratory failure. Resolved. 5. Gastroparesis. Stable. Continue on Reglan. 6. Situational depression. Continue on Prozac. 7. Constipation. Continue on scheduled laxative therapy. 8. Poorly controlled insulin-dependent diabetes mellitus type 1. We will hold the patient's long-acting insulin today and just cover the patient with sliding scale insulin when necessary. The patient is currently not tolerating long-acting insulin. It has been resulting in frequent hypoglycemic episodes. 9.End stage renal disease. Dialysis is planned for today. 10.DVT prophylaxis. Continue on lovenox. cc: Narcisa Pack MD MTDD
[2016-12-31] MEDS: LOVENOX SUBQ SCH (16:45)
[2016-12-31] MEDS: REMERON PO SCH (21:19)
[2016-12-31] MEDS: PRAVACHOL PO SCH (21:20)
[2016-12-31] MEDS: DULCOLAX PR SCH (21:23)
[2017-01-01] MEDS: CARDENE 40 MG/NS 40 MG/200 ML PIGGYBACK IV SCH ×2 (03:47→12:34)
[2017-01-01] MEDS: HUMULIN R SUBQ SCH ×5 (04:55→21:25)
[2017-01-01] MEDS: ATIVAN IV PRN (04:56)
[2017-01-01] MEDS: PROTONIX PO SCH ×2 (06:06→21:22)
[2017-01-01 06:16] LABS: MANUAL DIFF NEEDED? NO
[2017-01-01 06:17] LABS: BASO% 1.1 % (0.0-0.8); EOS# 0.24 X1000 (0.0-0.7); EOS% 4.3 % (0.0-10.0); HEMATOCRIT 39.8 % (37.0-47.0); HEMOGLOBIN 12.2 g/dL (12.0-16.0); IMM GRAN# 0.03 X1000 (0.0-0.04); IMM GRAN% 0.5 % (0.0-0.5); LYMPH# 1.35 X1000 (1.2-3.4); LYMPH% 24.3 % (20.5-51.1); MCH 30.7 PG (27-31); MCHC 30.7 g/dL (33-37); MCV 100.3 FL (81-99); MONO# 0.95 X1000 (0.11-0.59); MONO% 17.1 % (1.7-9.3); NEUT% 52.7 % (42.2-75.2); PLT 380 X1000 (130-400); RBC 3.97 XMIL (4.2-5.4)
[2017-01-01 06:45] LABS: ALBUMIN 3.5 g/dL (3.5-5.0); POTASSIUM 4.7 mmol/L (3.5-5.1)
[2017-01-01] MEDS: NORVASC PO SCH ×2 (08:03→21:19)
[2017-01-01] MEDS: CENTRUM TABLET PO SCH (08:03)
[2017-01-01] MEDS: TRANDATE PO SCH ×3 (08:03→18:29)
[2017-01-01] MEDS: CATAPRES PO SCH ×2 (08:03→21:20)
[2017-01-01] MEDS: KEPPRA PO SCH ×2 (08:04→21:21)
[2017-01-01] MEDS: PROZAC PO SCH (08:04)
[2017-01-01] MEDS: PRINIVIL PO SCH (08:04)
[2017-01-01] MEDS: TRILEPTAL PO SCH ×2 (08:04→21:20)
--- NOTE | 2017-01-01 08:47 | Diag Imaging Result Document ---
PROCEDURE NAME: CHEST-PORTABLE - 01/01/2017 SINGLE FRONTAL RADIOGRAPH OF THE CHEST: COMPARISON: 12/31/2016. FINDINGS: Right vas cath is in stable position. Prominent central vasculature may be slightly less prominent than the previous study suggesting slight improvement of pulmonary venous congestion. There is suggestion of mild atelectasis at the right lung base that is essentially stable. No new consolidation is identified. Cardiac silhouette is stable. IMPRESSION: Questionable slight improvement of pulmonary venous congestion.
[2017-01-01] MEDS ORDERED: LANTUS SUBQ SCH (09:00)
--- NOTE | 2017-01-01 13:11 | PROGRESS NOTE ---
DATE: 01/01/2017 SUBJECTIVE: The patient is more awake and alert today. She did walk with Physical Therapy this morning. She also ate breakfast, and her blood pressure and blood sugars are a little bit better today. OBJECTIVE: Vital Signs: Temperature 97 degrees, blood pressure 139/90, heart rate 88, respirations 14, O2 saturation 93% on room air. General: This is a young female, lying in bed in no acute distress. Head: Normocephalic, atraumatic. Heart: S1 and S2 normal. Regular rate and rhythm. Lungs: Clear to auscultation bilaterally. No crackles. No rales. Abdomen: Positive bowel sounds. Soft, nontender, nondistended. Extremities: No edema. No cyanosis. No calf tenderness. Neurologic: The patient is alert and oriented x3. The patient does have a flat affect. LABS: White blood cell count 5.5, hemoglobin 12, hematocrit 39, platelets 380, 000. Sodium 135, potassium 4.7, chloride 95, CO2 of 19, BUN 26, creatinine 4.3, glucose 470, phosphorus 3.5. ASSESSMENT AND PLAN: 1. Acute hypoxemic respiratory failure. Resolved. 2. Accelerated hypertension. Improved. The patient is on a Cardene drip. Hopefully, we will be able to wean the drip off today. 3. Seizure disorder. The patient did have a seizure around 4 this morning, at which time Ativan was given. We will continue on Trileptal and Keppra. 4. Uncontrolled insulin-dependent diabetes mellitus, type 1. Will restart the patient on Lantus 5 units subcutaneously every morning along with regular insulin sliding scale for coverage. 5. Gastroparesis. Stable. Continue on Reglan. 6. Situational depression. Continue on Prozac. 7. End stage renal disease. Management as per the Litigation Associate. 8. Deep venous thrombosis prophylaxis. Continue on Lovenox. cc: Narcisa Pack MD MTDD
[2017-01-01] MEDS: LOVENOX SUBQ SCH (17:18)
--- NOTE | 2017-01-01 17:29 | PROGRESS NOTE ---
DATE: 01/01/2017 SUBJECTIVE: She is feeling well today. No more seizures. No shortness of breath, nausea or vomiting. OBJECTIVE: Vital Signs: Blood pressure 123/84, heart rate 82, respirations 15, afebrile. General: She is in no acute distress. Skin: Warm and dry. HEENT: Conjunctivae are pink. Neck: Neck veins are not visible. Heart: Regular with a gallop. Lungs: Have equal breath sounds. No crackles or wheezes. Abdomen: Soft, nontender. Bowel sounds present. Extremities: Have no edema, clubbing, or cyanosis. LABORATORY DATA: Sodium 135, potassium 4.7, chloride 95, bicarbonate 19, BUN 26, creatinine 4.3. IMPRESSION: 1. Hypertensive emergency. Her blood pressure is improving. I have titrated her medications progressively. Will attempt to titrate her labetalol off. 2. ESRD. Her next dialysis on Tuesday. 3. Electrolytes/acid base/anemia acceptable. cc: Hardy Kay MD
[2017-01-01] MEDS: REMERON PO SCH (21:20)
[2017-01-01] MEDS: PRAVACHOL PO SCH (21:21)
[2017-01-02] MEDS: DULCOLAX PR SCH ×2 (02:01→21:18)
[2017-01-02] MEDS: HUMULIN R SUBQ SCH ×5 (02:26→18:12)
[2017-01-02] MEDS: ATIVAN IV PRN (02:28)
[2017-01-02 06:37] LABS: ALBUMIN 3.6 g/dL (3.5-5.0); CALCIUM 9.1 mg/dL (8.8-10.2); POTASSIUM 5.2 mmol/L (3.5-5.1)
[2017-01-02] MEDS: KEPPRA PO SCH ×2 (08:53→21:17)
[2017-01-02] MEDS: TRANDATE PO SCH ×3 (08:54→17:07)
[2017-01-02] MEDS: CENTRUM TABLET PO SCH (08:54)
[2017-01-02] MEDS: NORVASC PO SCH ×2 (08:54→21:15)
[2017-01-02] MEDS: CATAPRES PO SCH ×2 (08:55→21:16)
[2017-01-02] MEDS: TRILEPTAL PO SCH ×2 (08:55→21:16)
--- NOTE | 2017-01-02 08:56 | Diag Imaging Result Document ---
PROCEDURE NAME: CHEST-PORTABLE - 01/02/2017 SINGLE FRONTAL RADIOGRAPH OF THE CHEST: COMPARISON: 01/01/2017. FINDINGS: Right Vas-Cath is in stable position. Inspiration is suboptimal similar to the previous study. No new consolidation is identified. There is stable atelectasis and suggestion of mild pulmonary venous congestion that is stable. Cardiac silhouette is stable. IMPRESSION: Stable chest.
[2017-01-02] MEDS: PRINIVIL PO SCH (08:59)
[2017-01-02] MEDS ORDERED: LANTUS SUBQ SCH (09:00)
[2017-01-02] MEDS: PROZAC PO SCH (09:03)
[2017-01-02] MEDS: CARDENE 40 MG/NS 40 MG/200 ML PIGGYBACK IV SCH (12:15)
--- NOTE | 2017-01-02 13:51 | PROGRESS NOTE ---
DATE: 01/02/2017 SUBJECTIVE: The patient had some seizure-like activity at 2 a.m. this morning. The patient was able to follow commands throughout the episode aspirin the nursing staff. She was given Ativan during the during the event. The patient does report that she is depressed and would like to leave the hospital. OBJECTIVE: Vital Signs: Temperature 98.1 degrees, blood pressure 157/103, heart rate 91, respirations 14, O2 saturations 97% on room air. General: This is a chronically ill-appearing young female lying in bed in no acute distress. Head: Normocephalic, atraumatic. Heart: S1, S2. Normal. Regular rate and rhythm. Lungs: Clear to auscultation bilaterally. No wheezes, no rales. No rhonchi. Abdomen: Positive bowel sounds. Soft, nontender, nondistended. Extremities: No edema. No cyanosis. No calf tenderness. Neurological: Patient is alert and oriented x3. The patient does have a flat affect. LABS: Sodium 135, potassium 5.2, chloride 98, CO2 22, BUN 44, creatinine 6, glucose 305, calcium 9.1, phosphorus 4.1. Chest x-ray shows mild pulmonary venous congestion. ASSESSMENT AND PLAN: 1. Acute hypoxemic respiratory failure. Resolved. 2. Accelerated hypertension. The patient remains on the cardene drip. Attempts to wean it off are in progress by the nursing staff. Further adjustment of meds as per . 3. Seizure disorder. The patient appears to be having episodes of breakthrough seizures. Will discuss this with Dr. Ennis. Continue on Trileptal and Keppra. 4. Uncontrolled insulin-dependent diabetes mellitus type 1. Will increase the patient's Lantus to 7 units every morning. Continue on regular insulin sliding scale for coverage. The patient reports that she has been on an insulin pump in the past. She also reports that she does have an hospice home care coordinator that she follows up with in [place]. 5. Gastroparesis. Stable. Continue on Reglan. 6. Situational depression. The patient reports that she is depressed every day. Will switch the patient to zoloft. 7. End-stage renal disease. Management as per the vice squad police officer. 8. Volume overload. Improved. 9. Deep vein thrombosis prophylaxis. Continue on Lovenox. cc: Narcisa Pack MD MTDD
[2017-01-02] MEDS: PROTONIX PO SCH ×2 (17:02→21:16)
[2017-01-02] MEDS: LOVENOX SUBQ SCH (18:03)
[2017-01-02] MEDS: ZOLOFT PO SCH (21:16)
[2017-01-02] MEDS: PRAVACHOL PO SCH (21:17)
[2017-01-03] MEDS: HUMULIN R SUBQ SCH ×7 (00:39→21:24)
[2017-01-03] MEDS: REMERON PO SCH ×2 (00:47→21:22)
[2017-01-03] MEDS: CARDENE 40 MG/NS 40 MG/200 ML PIGGYBACK IV SCH (02:38)
[2017-01-03 05:29] LABS: HEMOGLOBIN 11.1 g/dL (12.0-16.0); MCH 31.2 PG (27-31); MCHC 31.7 g/dL (33-37); MCV 98.3 FL (81-99); MPV 9.6 FL (7.4-10.4); RBC 3.56 XMIL (4.2-5.4)
[2017-01-03] MEDS: PROTONIX PO SCH ×2 (06:28→21:22)
[2017-01-03 06:42] LABS: ALBUMIN 3.7 g/dL (3.5-5.0); CALCIUM 9.4 mg/dL (8.8-10.2); POTASSIUM 6.2 mmol/L (3.5-5.1)
[2017-01-03] MEDS ORDERED: TIGHT: 0.2 ML/HR MISC PRN (07:23)
[2017-01-03] MEDS ORDERED: NS 2,000 ML MISC PRN (07:23)
[2017-01-03] MEDS ORDERED: HEPARIN IV PRN (07:23)
[2017-01-03] MEDS: CENTRUM TABLET PO SCH (08:47)
[2017-01-03] MEDS: TRANDATE PO SCH ×3 (08:47→16:17)
[2017-01-03] MEDS: KEPPRA PO SCH ×2 (08:48→21:23)
[2017-01-03] MEDS: TRILEPTAL PO SCH ×2 (08:48→21:22)
[2017-01-03] MEDS: NORVASC PO SCH ×2 (08:48→21:23)
[2017-01-03] MEDS: PRINIVIL PO SCH (08:48)
[2017-01-03] MEDS: LANTUS SUBQ SCH (08:49)
[2017-01-03] MEDS: CATAPRES PO SCH ×2 (08:51→21:22)
--- NOTE | 2017-01-03 09:15 | PROGRESS NOTE ---
DATE: 01/03/2017 SUBJECTIVE: The patient is resting in bed. OBJECTIVE: Temp 97.2, pulse 87, RR 12, BP 138/97. Intake 1.8 L Output 0 General: Drowsy. Awakens easily to name. No acute distress. HEENT: Normocephalic. Right eye droop/swelling, conjunctivae pink. Oral mucosa moist. Neck: Supple. Trachea midline. No JVD. CV: RRR, no murmur. Pulm: Equal excursion with no increased work of breathing. Clear bilaterally. Abdomen: Soft, non tender. positive bowel sounds. : No inspected. HD assist. Extremities: Trace pretibial edema. No clubbing or cyanosis. Moving all extremities. Integumentary: Warm, dry. ASSESSMENT AND PLAN: 1. She continues to require a Cardene drip to manage her blood pressure. This is being titrated down as possible. 2. End-stage renal disease. Today is her routine dialysis day. We will dialyze her on a 2- potassium bath, ultrafiltrate 3 liters as tolerated to dry weight for a 4- hour treatment. 3. Electrolytes, acid-base balance. These are in target. We will dialyze on a 2-potassium bath to address her potassium. 4. Anemia, stable. 5. Altered mental status/seizures, followed by Primary and Neurology. She apparently had an episode that was reported by the nurse last night of some seizure-like activity that discontinued with verbal interaction and no postictal phase. We will defer to Primary and Neurology. Seen, data reviewed, discussed with Carl Fernandez on 01/03/17. I agree with the above assessment and plan of care. rg Dictated by MANNY Ordonez for Hardy Kay MD cc: Hardy Kay MD [facility]
[2017-01-03] MEDS ORDERED: NS 2,000 ML ONE (10:19)
[2017-01-03] MEDS ORDERED: HEPARIN ONE (10:19)
--- NOTE | 2017-01-03 11:36 | PROGRESS NOTE ---
DATE: 01/03/2017 SUBJECTIVE: The patient looks a little bit sedated this morning but she does awaken. She had an episode of seizure-like activity last night but the nurse kind of talked her out of it which is unusual for a true seizure. It kind of stopped abruptly and she did not have a true postictal state, although I think with the couple of seizures that I saw last week, she did have a postictal state and did seem truly symptomatic. OBJECTIVE: Vital Signs: Blood pressure 138/97, heart rate of 87, respiratory rate 12, temperature 97.2, 98% on room air. Cardiovascular: Regular rate and rhythm. Pulmonary: Bilateral breath sounds clear to auscultation. GI: Soft, nontender, nondistended. Bowel sounds are positive. Laboratory Data: Hemoglobin and hematocrit 11 and 35. Chemistries: Potassium 6.2, BUN and creatinine 63 and 8.3, phosphorus was 4.9. Sugars have been somewhat labile. Highest is 323 but then she has had a low of like 49. She is only on 7 units of Lantus at this point. PROBLEM LIST: 1. Seizure disorder. This appears to have been stable on current dose of Trileptal. She is on Trileptal and Keppra. Neurology is following. I do not really want a push on her doses of medications due to oversedation so we will continue to follow but appears to be controlled. 2. Diabetes, still very brittle. She is only on 7 units of Lantus. We will continue to follow. I think I am going to adjust her Humulin to before meals and at bedtime just so she does not get overcorrected and we will go from there. Continue to follow very closely. 3. Respiratory failure. She is on room air and seems to be doing okay. Chest x-ray is clear. 4. Disposition. I think we could probably try to transfer her to step-down. She had some issues with her blood pressure yesterday but that seems to have stabilized on her current regimen. She is on lisinopril, labetalol, clonidine, and Norvasc, and seems to be stable. cc: Danny Castellanos MD
[2017-01-03] MEDS: LOVENOX SUBQ SCH (16:17)
--- NOTE | 2017-01-03 17:48 | PROGRESS NOTE ---
DATE: 01/03/2017 SUBJECTIVE: Ms. Chaparro had an episode overnight with question of seizure, but she seemed to be awake and able to carry on conversation during that episode. She has not had episodes through the day today. She seems recovered from neurologic standpoint, awake, alert, attentive and appropriate. She continues what should be reasonable doses of levetiracetam and oxcarbazepine. If anything, we would anticipate a supratherapeutic levetiracetam level based on previous levels and doses. The behavior with recent episode suggests that was likely not seizure, which raises question that some of her previous spells may not have been true seizures. Since she is stable today, I do not think we have to make urgent changes. I will plan to ask Dr. Baltazar to evaluate her tomorrow. cc: MD GARY Flores III
[2017-01-03] MEDS: PRAVACHOL PO SCH (21:22)
[2017-01-03] MEDS: DULCOLAX PR SCH (21:23)
[2017-01-03] MEDS: ZOLOFT PO SCH (22:22)
[2017-01-04] MEDS ORDERED: HUMALOG SUBQ ONE (00:13)
[2017-01-04 05:26] LABS: MCHC 31.6 g/dL (33-37); MCV 98.2 FL (81-99); MPV 9.9 FL (7.4-10.4); RBC 3.87 XMIL (4.2-5.4)
[2017-01-04] MEDS: PROTONIX PO SCH ×2 (06:09→20:35)
[2017-01-04] MEDS: HUMULIN R SUBQ SCH ×5 (06:09→23:07)
[2017-01-04 08:04] LABS: ALBUMIN 3.8 g/dL (3.5-5.0); CALCIUM 8.8 mg/dL (8.8-10.2)
[2017-01-04 08:06] LABS: POTASSIUM 6.5 mmol/L (3.5-5.1)
[2017-01-04] MEDS ORDERED: KAYEXALATE PO ONE (08:13)
[2017-01-04] MEDS ORDERED: HUMULIN R SUBQ ONE (08:14)
[2017-01-04] MEDS: NORVASC PO SCH ×2 (08:23→20:35)
[2017-01-04] MEDS: KEPPRA PO SCH ×2 (08:23→20:33)
[2017-01-04] MEDS: PRINIVIL PO SCH (08:23)
[2017-01-04] MEDS: TRILEPTAL PO SCH ×2 (08:23→20:32)
[2017-01-04] MEDS: TRANDATE PO SCH ×3 (08:23→16:46)
[2017-01-04] MEDS: CATAPRES PO SCH ×2 (08:23→20:33)
[2017-01-04] MEDS: NORCO-7.5 PO PRN ×2 (08:24→20:45)
[2017-01-04] MEDS: CENTRUM TABLET PO SCH (08:24)
[2017-01-04] MEDS: LANTUS SUBQ SCH (08:25)
[2017-01-04] MEDS ORDERED: CALCIUM GLUCONATE 4.65 MEQ in NS 50 ML IV ONE (09:04)
--- NOTE | 2017-01-04 09:11 | PROGRESS NOTE ---
DATE: 01/04/2017 SUBJECTIVE: Patient is resting in bed. She is complaining of right arm pain. She stated that this began after her blood draw this morning. Blood was collected via the blue port of her tunneled catheter. No tourniquet on the arm was used. This is the side that she had an AV fistula recently created. OBJECTIVE: Vital Signs: Temperature 98.4 degrees, pulse 99, respiratory rate 18, blood pressure 156/95. Intake 490 mL. Output 4 L. General: Middle-aged female, resting in bed. Mild distress secondary to pain. HEENT: Normocephalic, atraumatic. Her oral mucosa is moist. Neck: Supple. There is no JVD. Cardiovascular: Reveals a regular rate and rhythm. There is no murmur. Pulmonary: She is clear bilaterally. There is no increased work of breathing. She has equal excursion. Abdomen: Soft, with positive bowel sounds. : Not inspected. She has minimal void with hemodialysis assist. Extremities: She has no clubbing, cyanosis, or edema. She is moving her extremities. She has an AV fistula noted to the right upper extremity, upper portion of the arm. There is a well-healed scar. There is a positive thrill. Integumentary: Skin is warm and dry otherwise without rash or lesion. LAB DATA: WBC of 5.5, hemoglobin 12.0, hematocrit 38.0. Potassium 6.5, CO2 18 , creatinine 6.0, anion gap of 19. Her glucose is 732. ASSESSMENT AND PLAN: 1. End-stage renal disease management. She routinely dialyzes on Tuesday, Tuesday, Tuesday. We will continue this while she is in the hospital. 2. Electrolytes. She is hyperkalemia this morning. She was on a 2 K bath yesterday secondary to her potassium being 6.2. Potassium has been treated by the hospitalist this morning. 3. Acidosis. She is slightly more acidotic than yesterday. Her anion gap is 19. Her glucose is 732. Will order acetone. 4. Blood pressure, controlled. 5. Fluid volume. She had 4 L removed yesterday. She is not in overload. Seen, data reviewed, discussed with Carl Fernandez on 01/05/16. I agree with the above assessment and plan of care. rg Dictated by MANNY Ordonez for Hardy Kay MD cc: Hardy Kay MD [facility]
[2017-01-04 12:28] LABS: POTASSIUM 4.5 mmol/L (3.5-5.1)
[2017-01-04] MEDS: ATIVAN IV PRN (12:29)
--- NOTE | 2017-01-04 12:56 | EKG Report ---
Test Performed on : 01/04/2017 09:56:59 AM Test Reason : High potassium Blood Pressure : / mmHG Vent. Rate : 106 BPM Atrial Rate : 106 BPM P-R Int : 174 ms QRS Dur : 096 ms QT Int : 368 ms P-R-T Axes : 058 009 019 degrees QTc Int : 488 ms Sinus tachycardia. Voltage criteria for left ventricular hypertrophy Abnormal ECG When compared with ECG of 27-OCT-2016 16:11, No significant change was found Confirmed by Moose Maravilla MD ([id number]) on 01/04/2017 3:19:25 PM
[2017-01-04] MEDS: D50W SYRINGE IV PRN (13:38)
--- NOTE | 2017-01-04 17:41 | CONSULTATION ---
DATE OF CONSULTATION: 01/04/2017 REASON FOR CONSULTATION: The patient is seen in consultation for a 2nd opinion at the request of Dr. Ennis for evaluation of seizures. HISTORY OF PRESENT ILLNESS: The patient is a 36-year-old, left-handed female, with end-stage renal disease, on hemodialysis, diabetes with multiple DKA admissions, seizures, diastolic heart failure, hypertension, history of stroke last year and multiple other medical issues who presents for admission on 12/02/2016 for diabetic ketoacidosis. She says for the last 2-1/2 years she has had seizures. Event 1: Shaking of all of her extremities at the same time. Maintains consciousness. No tongue biting. No bowel or bladder incontinence. Occurs only when her blood sugars are severely elevated, such as around the 800 range. She herself says that she does not believe that these are seizures. Event 2: Her family tells her that she falls and has shaking all over with bowel and bladder incontinence. She has bitten her tongue with these. She does not recall these events. These occur when her blood sugars are quite low, like around 25. Event 3: She smells turnip greens and this is followed by a sense that something is coming on, such as shaking and then she loses consciousness. Reports to her have been that she has shaking all over with urinary incontinence , but not bowel incontinence. She may have bitten her tongue with these, though she is not sure. These have occurred more recently since her reported stroke last year. She reports having had 2 of these total. On further questioning, she seems to say that she was actually around turnip greens during both events, so the olfactory part of the episode is not entirely clear. She denies any problems during her . She denies any history of head trauma, although she says that she had a stroke that caused her to have left- sided numbness and weakness last year at [facility]. She says this has improved significantly, but she is not at baseline she feels. She does not have a family history of seizures. She has not had any history of SCOREKEEPER infection. 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 The patient reports that she was started on Keppra roughly a year ago and has been taking this as prescribed. Oxcarbazepine was added this admission. PAST MEDICAL HISTORY: 1. Type 1 diabetes. 2. Multiple DKA admissions. 3. End-stage renal disease, on hemodialysis. 4. Seizures. 5. Diastolic heart failure. 6. Hypertension. 7. GERD. 8. Diabetic gastroparesis. 9. Anemia of chronic disease. 10. Diabetic neuropathy. 11. Esophagitis gastritis. 12. History of vancomycin-resistant enterococci UTI. 13. History of stroke that she reports happened last year. 14. 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 15. Corneal transplant and esophageal dilatation. 16. AV fistula for hemodialysis. SOCIAL HISTORY: She denies tobacco, alcohol, or drug use. She lives with her sister. FAMILY HISTORY: Notable for hypertension, diabetes and stroke. There is no family history of seizures. ALLERGIES: No known drug allergies. MEDICATIONS: Keppra 750 mg p.o. b.i.d. Oxcarbazepine 600 mg p.o. b.i.d. Otherwise, reviewed in the chart. REVIEW OF SYSTEMS: Twelve systems reviewed and otherwise negative except for what is detailed in the HPI. PHYSICAL EXAMINATION: Vital Signs: Reviewed in the chart. General: She is in no acute distress. She is sluggish, with a soft voice, but she is able to provide an accurate history. HEENT: She is anicteric. No erythema. Dry mucous membranes. Neck: Supple. Abdomen: Soft, nontender, nondistended. Extremities: No cyanosis, no edema. Skin: Intact without rash or lesions. Neurological: Mental status: She is awake. She is alert and oriented. Her attention and concentration are slow, but intact. Her language is intact. No dysarthria. Cranial nerves, pupils are equal, round, reactive to light. Pupils are 3 mm, OU. Extraocular muscles are intact with some nystagmus noted. Visual vail are intact to confrontational testing. Face is symmetrical with equal activation. Intact strength there. Hearing is grossly intact. Palate elevates symmetrically. Tongue protrudes midline. Full shoulder shrug bilaterally. Motor examination, normal bulk and tone. No fasciculations. She has rare myoclonic jerks with holding her arms out. No definite pronator drift, her strength appears to be symmetrical in all of her extremities, at least 4/5. Reflexes are symmetric. They are reduced throughout. Plantar response is flexor bilaterally. No Jamiosn's, no clonus. Sensory is intact to light touch and temperature though reduced in the distal lower extremities. Cerebellar coordination, her ewrtta-on-vrgu is intact, slow but reasonable rapid alternating movements. Gait was not tested. The patient was on a bed stark. PERTINENT DIAGNOSTICS: Multiple head CTs dating back to 2013 note a isidro matter heterotopia in the right parietal region. There have been no acute findings. I am unable to view these personally. Head CT from this admission with no change. A routine EEG for 12/06/2016 was read as abnormal due to mild generalized slowing. LABORATORY: White blood cells 5.5, hemoglobin 12, hematocrit 38, platelets 398, 000. Sodium 137, potassium 4.5, though has been elevated. CO2 21. BUN 46, creatinine 6.5. Glucose has been quite variable since her admission. A Keppra level on 12/14/2016 was 44.7. ASSESSMENT AND PLAN: This is a 36-year-old, left-handed female with multiple medical issues admitted again with DKA. She has had 3 distinct types of events as detailed above, though type 2 and 3 may be the same. She is currently on Keppra and oxcarbazepine. Based on her history alone, to me it seems that the type 1 event is likely not a seizure, but types 2 and 3 events certainly are concerning for seizure. Given her history of possible stroke (needs to be confirmed) and certainly of her CT findings on migrational disorder, along with recurrent events that sound consistent with seizure, I agree that treatment with AED is indicated. Keppra may be difficult in light of her hemodialysis though, so possibly discontinuing that and continuing with the oxcarbazepine may be a better option. Agree also that better control of her blood sugars is needed to lessen her seizure burden. I there is concern in the future for determining if some events are seizure and others are not, would recommend referral to [facility] for inpatient VEEG monitoring to evaluate. Thank you for this consultation. cc: Melly Baltazar MD [facility]
[2017-01-04] MEDS: PRAVACHOL PO SCH (20:32)
[2017-01-04] MEDS: REMERON PO SCH (20:34)
[2017-01-04] MEDS: ZOLOFT PO SCH (20:35)
[2017-01-04] MEDS: DULCOLAX PR SCH (20:35)
[2017-01-04] MEDS: HEPARIN SUBQ SCH (20:36)
[2017-01-05 05:25] LABS: HEMATOCRIT 38.2 % (37.0-47.0); HEMOGLOBIN 12.3 g/dL (12.0-16.0); MCH 31.1 PG (27-31); MCHC 32.2 g/dL (33-37); MCV 96.7 FL (81-99); MPV 9.6 FL (7.4-10.4); RBC 3.95 XMIL (4.2-5.4)
[2017-01-05] MEDS: PROTONIX PO SCH ×2 (06:52→20:48)
[2017-01-05] MEDS: HUMULIN R SUBQ SCH ×4 (07:03→20:51)
[2017-01-05] MEDS ORDERED: TIGHT: 0.2 ML/HR MISC PRN (07:54)
[2017-01-05] MEDS ORDERED: NS 2,000 ML MISC PRN (07:54)
[2017-01-05] MEDS ORDERED: HEPARIN IV PRN (07:54)
[2017-01-05] MEDS ORDERED: HEPARIN ONE (08:14)
[2017-01-05] MEDS ORDERED: NS 1,000 ML ONE (08:14)
[2017-01-05] MEDS: KEPPRA PO SCH ×2 (08:29→20:49)
[2017-01-05] MEDS: CATAPRES PO SCH ×2 (08:30→20:50)
[2017-01-05] MEDS: TRANDATE PO SCH ×3 (08:30→16:35)
[2017-01-05] MEDS: CENTRUM TABLET PO SCH (08:31)
[2017-01-05] MEDS: TRILEPTAL PO SCH ×2 (08:31→20:50)
[2017-01-05] MEDS: NORVASC PO SCH ×2 (08:31→20:50)
[2017-01-05] MEDS: PRINIVIL PO SCH (08:31)
[2017-01-05] MEDS: HEPARIN SUBQ SCH ×2 (08:32→20:51)
[2017-01-05] MEDS: LANTUS SUBQ SCH (08:33)
--- NOTE | 2017-01-05 08:49 | PROGRESS NOTE ---
DATE: 01/05/2017 SUBJECTIVE: Ms. Chaparro is awake, alert, attentive. There is nothing new neurologically. She reports no episodes overnight. Dr. Baltazar evaluated her yesterday. She agreed with current management and raised concerns that some of the episodes may not be seizures. We discussed management and will plan to continue her on both levetiracetam and oxcarbazepine short-term. When she is stable and discharged, we can follow her as an outpatient and then consider stopping one of the seizure medicines, probably levetiracetam, and continue on oxcarbazepine monotherapy. No suggestions for any management change today. cc: MD GARY Flores III
--- NOTE | 2017-01-05 09:28 | PROGRESS NOTE ---
DATE: 01/05/2017 SUBJECTIVE: The patient is resting in bed. She denies any pain today. OBJECTIVE: Vital Signs: Temperature 98.3 degrees, pulse 98, respiratory rate 18 , blood pressure 160/93. Intake 1 L. Output 200 mL. PHYSICAL EXAMINATION: General: This is a middle-aged female, resting in bed. She is awake, alert, in no acute distress. HEENT is normocephalic, atraumatic. Oral mucosa is moist. Neck is supple. Trachea midline. Cardiovascular: Regular rate and rhythm without murmur. Pulmonary: Equal excursion. She is clear bilaterally. She has no increased work of breathing. Abdomen is soft, with positive bowel sounds. : Not inspected. Extremities: She has an AV fistula to the right upper extremity. She has trace pretibial edema. No clubbing or cyanosis. Is moving her extremities. Integumentary: Skin is warm and dry without rash or lesion otherwise. LABORATORY DATA: WBC of 5.5, hemoglobin 12.3, hematocrit 38.2, platelet count of 404,000. Sodium 132, potassium 6.0, CO2 of 92. BUN 60, creatinine 7.8. Calcium 9.0. Glucose 484. Acetone small. ASSESSMENT AND PLAN: 1. End-stage renal disease management. She has a Tuesday, Tuesday, Tuesday, schedule. We will plan to dialyze her on a 2 K bath/two L UF removal 4 hour treatment today. 2. Electrolytes. Potassium remains mildly elevated. See above for plan. 3. Acidosis, improved. 4. Blood pressure mildly elevated but controlled otherwise. Plan to dialyze today. Seen, data reviewed, discussed with Carl Fernandez on 01/05/17. I agree with the above assessment and plan of care. rg Dictated by MANNY Ordonez for Hardy Kay MD cc: Hardy Kay MD [facility]
[2017-01-05] MEDS: VELTASSA PO SCH (13:03)
[2017-01-05] MEDS: NORCO-7.5 PO PRN (16:33)
[2017-01-05] MEDS: PRAVACHOL PO SCH (20:48)
[2017-01-05] MEDS: ZOLOFT PO SCH (20:50)
[2017-01-05] MEDS: REMERON PO SCH (20:50)
[2017-01-05] MEDS: DULCOLAX PR SCH (20:51)
[2017-01-06] MEDS: HUMULIN R SUBQ SCH ×4 (01:39→13:01)
[2017-01-06] MEDS: PROTONIX PO SCH (06:02)
--- NOTE | 2017-01-06 07:24 | PROGRESS NOTE ---
DATE: 01/06/2017 SUBJECTIVE: Patient is resting in bed, asleep. She awakens easily to verbal stimulation. OBJECTIVE: Vital Signs: Temperature 97.8 degrees, pulse 90, respiratory rate 18, blood pressure 150/91. Intake 120 mL, output 2.3 L. Physical Examination: General: Middle-aged female resting in bed. She is awake and alert, in no acute distress. HEENT: Normocephalic and atraumatic. Oral mucosa moist. Neck : Supple. Trachea midline. Cardiovascular: Reveals a regular rate and rhythm. There is no murmur or gallop appreciated. Pulmonary: She has equal excursion. She is clear bilaterally. She has no increased work of breathing. Abdomen: Soft, with positive bowel sounds. : Not inspected. She has minimal void with hemodialysis assist. Extremities: AV fistula to the right upper extremity. There is no pretibial edema. She is moving all extremities. No clubbing or cyanosis. Integumentary: Skin is warm and dry without rash or lesion. She does have a tunneled dialysis catheter to the chest wall. Insertion site clean, dry, and intact. Laboratory Data: No labs this morning. ASSESSMENT AND PLAN: 1. End-stage renal disease management. She has a Tuesday, Tuesday, and Tuesday schedule. She has been continued on that while she has been in the hospital. We will maintain this. She dialyzed yesterday without issue and had 2 L of UF removal. 2. Electrolytes, acid-base balance. These have been acceptable. Continue to manage with dialysis. 3. Blood pressure. Her blood pressure is been marginally high over the last 24 hours. She is on a maximum dose of Norvasc 10 twice a day, Catapres, labetalol, she has as needed to be given as well as 400 mg 3 times a day. She is on a full dose of lisinopril. Seen, data reviewed, discussed with Carl Fernandez on 01/06/17. I agree with the above assessment and plan of care. rg Dictated by MANNY Ordonez for Hardy Kay MD cc: Hardy Kay MD [facility]
--- NOTE | 2017-01-06 09:01 | PROGRESS NOTE ---
DATE: 01/06/2017 SUBJECTIVE: Ms. Chaparro is awake, alert, bright, attentive. I observed her eating her breakfast, sitting up in bed, feeding herself without difficulty, chewing and swallowing well. She is more spontaneous this morning than at any other time that I have seen previously in the hospital. She reports no further episodes of altered awareness, altered consciousness, jerking or trembling. I do not have any new suggestion today. I would continue levetiracetam and oxcarbazepine at current doses, and hope that she will be discharged soon. I will plan to see her as an outpatient to consider tapering and stopping levetiracetam as mentioned in previous notes. Thanks for allowing me to follow Ms. Chaparro. cc: MD GARY Flores III
[2017-01-06] MEDS: NORVASC PO SCH (09:17)
[2017-01-06] MEDS: PRINIVIL PO SCH (09:18)
[2017-01-06] MEDS: CATAPRES PO SCH (09:18)
[2017-01-06] MEDS: TRANDATE PO SCH ×2 (09:18→12:53)
[2017-01-06] MEDS: KEPPRA PO SCH (09:18)
[2017-01-06] MEDS: TRILEPTAL PO SCH (09:18)
[2017-01-06] MEDS: LANTUS SUBQ SCH (09:19)
[2017-01-06] MEDS: HEPARIN SUBQ SCH (09:19)
[2017-01-06] MEDS: CENTRUM TABLET PO SCH (09:19)
[2017-01-06] MEDS: VELTASSA PO SCH (09:27)
[2017-01-06 09:28] LABS: HEMATOCRIT 39.6 % (37.0-47.0); HEMOGLOBIN 12.5 g/dL (12.0-16.0); MCH 31.3 PG (27-31); MCHC 31.6 g/dL (33-37); MCV 99.2 FL (81-99); MPV 9.6 FL (7.4-10.4); RBC 3.99 XMIL (4.2-5.4)
[2017-01-06 10:13] LABS: POTASSIUM 4.5 mmol/L (3.5-5.1)
[2017-01-06 12:04] VITALS: BP 157/63
--- NOTE | 2017-01-07 05:20 | DISCHARGE SUMMARY ---
ADMISSION DATE: 12/02/2016 DISCHARGE DATE: 01/06/2017 CONSULTATIONS: 1. Dr. Kay with Nephrology. 2. Dr. Dee Ennis with Neurology. 3. Dr. Moore with Pulmonology. PERTINENT PROCEDURES: 1. EEG was abnormal because of generalized mild swelling. 2. Head CT showed no change from prior via right upper extremity. 3. Venous Doppler showed a patent right basilic vein to brachial artery atrial venous fistula without evidence of deep or superficial thrombosis involving the veins of the right upper extremity. 4. Chest CT showed hazy bilateral infiltrates or edema, patchy areas of more dense infiltrates, atelectasis, small bilateral pleural effusion with adjacent bilateral posterior lobe dependent or compressive atelectasis. 5. Mild mediastinal adenopathy which may be reactive and mild enlarged right thyroid lobe noted. DISCHARGE DIAGNOSES: 1. Diabetic ketoacidosis resolved. 2. Acute hypoxemic respiratory failure resolved. 3. Accelerated hypertension. Medications adjustment as per Dr. Kay. Stable. 4. Seizure disorder followed by Neurology. Patient will remain on Trileptal as well as Keppra. 5. Uncontrolled insulin-dependent diabetes mellitus type 1. The patient's Lantus was increased to 12.7 units every morning. She has stabilized over the last couple of days. The patient will need to follow up with Dr. Dominic Panda her coat fitter in [place]. 6. Gastroparesis stable. Continue Reglan. 7. Situational depression. The patient was switched to Zoloft. 8. End-stage renal disease on hemodialysis Tuesday, Tuesday, and Tuesday. The patient will continue with her regularly scheduled dialysis. 9. Volume overload improved follow-up. HOSPITAL COURSE: Briefly, Ms. Chaparro is a 36-year-old -[place] female well known to our service for admissions with DKA. She is a type 1 diabetic end-stage renal disease on hemodialysis Tuesday, Tuesday, and Tuesday, gastroparesis, history of medical noncompliance who presented with nausea, vomiting and abdominal pain for several days. She started having slight discomfort in the epigastric region. She progressed to full abdominal pain, nausea and vomiting consistent with her gastroparesis. She had also had multiple bouts of emesis on the day of her admission. She was unable to take her Humalog with her meals. Patient was initially admitted for DKA, sent to the [facility] and started on the DKA protocol. She had aggressive fluid resuscitation and close monitoring of her electrolytes and overall hemodynamic status. Dr. Kay was consulted to keep the patient on her regularly scheduled dialysis. Patient while in the hospital did have a seizure. Dr. Dee Ennis was consulted. It was felt that her seizures were a combination of metabolic factors. She was continued on Keppra and added Trileptal. Throughout patient's hospital stay, she was able to come off the DKA protocol. However, her sugars were very brittle. They were up and down. The blood sugars could be anywhere from 700 to as low as the 40s. Her medications were adjusted several times throughout her hospital stay. She was set for discharge sometime last week. However, the patient had a seizure. She had to be moved back to the ICU where she was watched closely. Neurology was still following the patient. She also had to be placed on BiPAP secondary to respiratory failure with her seizure that required an increase in her oxygen requirement. The patient was stabilized and moved back out of the ICU back to [facility]. She continued to have adjustments in her insulin medications. She has stabilized with her insulin. Again, blood pressure medications have been adjusted by her freight trucker. The patient has remained on her regular hemodialysis schedule while in the hospital. Dr. Castellanos has also assessed the patient today and feels that she is appropriate for discharge home. We did speak to the patient about home health as well as social security specialist, however she refused and stated that she had family at home. We did talk about the importance of medication compliance. Vital signs at time of her discharge, temperature is 98.2 degrees, heart rate 93, respirations 16, blood pressure 157/63, and O2 is 98% on room air. DISCHARGE DIET: Renal. DISCHARGE MEDICATIONS: Please see MAR. FOLLOW-UP: The patient is being discharged home with family. She is to continue to take all her medications as prescribed. She is to follow up with Dr. Ennis to discuss taking away her Keppra. Since she is on dialysis, they did not feel that this was very effective. She will also need to continue her new medication Trileptal. She has had medication adjustments in her Lantus as well as her blood pressure medications. The patient can return to the ED for any worsening of symptoms. TIME SPENT: Discharge time was greater than 30 minutes. Dictated by MANNY Gonzalez for Danny Castellanos MD cc: MD Danny Buck MD
== END 2017-01-06 13:50 | disposition home or self-care (01) ==
LOC: ED 00:47 → SUATTDRO 08:54 → EDIPHOLD 08:54 → 3S 10:43 → ICU 12-06 14:14 → 3N 12-12 14:12 → ICU 12-14 18:23 → 3N 12-16 12:22 → ICU 12-21 13:53 → 3N 12-25 22:42 → ICU 12-27 06:16 → 3S 01-03 19:44
PROVIDERS: ATTEND Internal Medicine

== ENCOUNTER 2017-02-15 21:53 | Inpatient (IN) ==
[2017-02-15] MEDS ORDERED: HUMULIN R IV ONE (22:40)
[2017-02-15 22:50] LABS: ALLEN TEST YES; BE 3.6 mmoll (-3.0-3.0); BLOOD TYPE ARTERIAL; DRAW SITE L RADIAL; O2(CT) 19.7 mL/dL (15.0-23.0); PCO2(98.6) 24 mmHg (35-45); PO2(98.6) 107 mmHg (60-100); SAMPLE BLOOD; SAO2 98.7 % (95.0-100.0); THB 14.4 g/dL (11.5-17.4)
[2017-02-15 22:51] LABS: MODALITY ROOM AIR
[2017-02-15 23:05] LABS: BASO% 0.3 % (0.0-0.8); HEMATOCRIT 43.6 % (37.0-47.0); HEMOGLOBIN 14.4 g/dL (12.0-16.0); LYMPH% 6.8 % (20.5-51.1); MANUAL DIFF NEEDED? NO; MCH 30.3 PG (27-31); MCV 91.8 FL (81-99); MONO# 0.55 X1000 (0.11-0.59); MONO% 4.7 % (1.7-9.3); MPV 10.3 FL (7.4-10.4); NEUT% 88.2 % (42.2-75.2); PLT 277 X1000 (130-400); RBC 4.75 XMIL (4.2-5.4)
[2017-02-15] MEDS ORDERED: NS 1,000 ML IV ONE (23:05)
[2017-02-15] MEDS ORDERED: ZOFRAN IV ONE (23:06)
--- NOTE | 2017-02-15 23:10 | PROVIDER DOCUMENTATION ---
HPI-Abdominal Pain/GI Problem - General Chief Complaint: Nausea/Vomiting Stated Complaint: ABD PAIN Time Seen by Provider: 02/15/17 22:32 Source: patient Allergies/Adverse Reactions: Patient Allergies Allergy/AdvReac Type Severity Reaction Status Date / Time No Known Allergies Allergy Verified 02/15/17 22:16 Home Medications: Home Medication List Medication Instructions Recorded Confirmed Last Taken Type Biotin 1 mg PO EVERY OTHER DAY 01/02/16 12/02/16 12/01/16 History Epoetin Yasir [Epogen] 10,000 unit SUBQ MoWeFr@0900 #0 07/16/16 12/02/16 Rx vial Multivitamins/Minerals [Centrum 1 each PO DAILY #0 tablet 07/16/16 12/02/1601/12 Rx Tablet] Sucralfate [Carafate Liquid] 1 gm PO Q6HR #120 udc 07/16/16 12/02/16 12/01/16 Rx Furosemide [Lasix] 40 mg PO BID #120 tablet 12/21/16 Unknown Rx Hydrocodone/Acetaminophen [[place] 1 each PO Q4H PRN PRN #30 tablet 12/21/16 Unknown Rx 7.5-325 Tablet] Lactulose 30 ml PO DAILY PRN PRN #0 udc 12/21/16 Unknown Rx Metoclopramide [Reglan] 5 mg PO AC + HS #120 tablet 12/21/16 Unknown Rx Mirtazapine [Remeron] 45 mg PO QHS #90 tablet 12/21/16 Unknown Rx PRAVAstatin [Pravachol] 80 mg PO QHS #120 tablet 12/21/16 Unknown Rx Pantoprazole [Protonix] 40 mg PO DAILY #90 tablet 12/21/16 Unknown Rx Polyethylene Glycol 3350 [Miralax] 17 gm PO DAILY powder, packet 12/21/16 Unknown Rx Zolpidem [Ambien] 10 mg PO HS PRN PRN #20 tablet 12/21/16 Unknown Rx Amlodipine [Norvasc] 10 mg PO BID #60 tablet 01/06/17 Unknown Rx Clonidine [Catapres] 0.2 mg PO BID #60 tablet 01/06/17 Unknown Rx Insulin Glargine [Lantus] 12 unit SUBQ QAM #1 insuln.pen 01/06/17 Unknown Rx LISINOpril [Prinivil] 40 mg PO DAILY #30 tablet 01/06/17 Unknown Rx Labetalol [Trandate] 400 mg PO TID #90 tablet 01/06/17 Unknown Rx Levetiracetam [Keppra] 750 mg PO BID #60 tablet 01/06/17 Unknown Rx Oxcarbazepine [Trileptal] 600 mg PO BID #60 tablet 01/06/17 Unknown Rx Metoclopramide [Reglan] 15 mg PO Q6HR PRN #120 tablet 02/15/17 Unknown Rx - History of Present Illness-ABD Nature of Presenting Problems: 36 y/o BF presents to the ED with c/o abd. pain, N/V x 1 day. Pt states hx of DM and was seen here this AM for the same. States abd. pain worse in epigastric region, but sore all over. Was in HH and d/c on for DKA. States compliance with medications. No other sxs. Review of Systems - Adult - REVIEW OF SYSTEMS - ADULT Constitutional: reports: no symptoms reported. denies: chills, fever Eyes: reports: no symptoms reported. denies: blurred vision, double vision Ears, Nose, Mouth & Throat: reports: no symptoms reported. denies: ear pain, nose pain Cardiovascular: reports: no symptoms reported. denies: chest pain, palpitations Respiratory: reports: no symptoms reported. denies: dyspnea on exertion, shortness of breath Gastrointestinal: reports: see HPI, abdominal pain, nausea, vomiting. denies: constipation, diarrhea Genitourinary: reports: no symptoms reported. denies: dysuria, frequency Musculoskeletal: reports: no symptoms reported. denies: joint pain, joint swelling Integumentary: reports: no symptoms reported. denies: nail changes, rash Neurological: reports: no symptoms reported. denies: numbness, paresthesia Psychiatric: reports: no symptoms reported Endocrine: reports: no symptoms reported. denies: cold intolerance, heat intolerance Hematologic/Lymphatic: reports: no symptoms reported. denies: easy bruising, prolonged bleeding Allergic/Immunologic: reports: no symptoms reported All Other Systems: Reviewed and Negative Past History - Adult - PAST MEDICAL HISTORY-ADULT Review of Records: reports: Nursing Assessment Review, Medications Reviewed Major Childhood Illnesses: reports: denies history Cardiovascular: reports: CHF, HTN, hyperlipidemia, other (cardiomyopathy) Respiratory: reports: denies history Gastrointestinal: reports: GERD, other (gastroparesis, eroding esophagus) Obstetrical/Gynecological: reports: denies history Genitourinary: reports: dialysis, kidney disease Musculoskeletal: reports: denies history Neurological: reports: Seizures/Epilepsy Endocrine/Immune: reports: Diabetes Other Conditions: reports: cataract/glaucoma - PRIOR SURGERIES/PROCEDURES Surgical/Procedure History: reports: colonoscopy, indwelling device (dialysis access), other (cataract removal) - PRIOR HOSPITALIZATIONS Prior Hospitalizations: reports: for other non-related - IMMUNIZATION STATUS Childhood Immunizations: See Nurse Assessment Flu Vaccine: See Nurse Assessment - FAMILY HISTORY Family History: reviewed, not pertinent - SOCIAL HISTORY Smoking: quit less than 1 year Physical Exam-General - PHYSICAL EXAM-ADULT Initial Vital Signs Reviewed: Yes - CONSTITUTIONAL General Appearance: alert, mild distress - EYES Eyes: pink conjunctivae - HEAD, EARS, NOSE, MOUTH & THROAT HENMT: normocephalic/atraumatic, moist mucous membranes - NECK Neck: normal inspection - RESPIRATORY Respiratory: lungs clear, normal breath sounds. negative: crackles, rales, rhonchi, stridor, wheezing - CARDIOVASCULAR Cardiovascular: tachycardia. negative: bradycardia - GASTROINTESTINAL (ABDOMEN) Abdominal Exam: normal bowel sounds, soft, tenderness (generalized). negative: distended, guarding, rigid - MUSCULOSKELETAL Back Exam: normal inspection Extremity: normal gait - SKIN Integumentary: normal color, normal turgor - NEUROLOGIC Neurologic: negative: aphasia - PSYCHIATRIC Psych/Mental Status: normal mood/affect Progress - PLAN OF CARE/RESULTS Progress/Plan/Lab Results: Vital Signs - 8 hr 02/15/17 21:56 Temperature 97.8 F Pulse Rate 115 H Respiratory Rate 24 Blood Pressure 181/109 O2 Sat by Pulse Oximetry 100 Laboratory Results - last 24 hr 02/15/17 02/15/17 22:29 22:40 Specimen Type ARTERIAL Sample Site L RADIAL pH 7.60 H* pCO2 24 L pO2 107 H HCO3 27.7 H Base Excess 3.6 H Oxyhemoglobin 96.7 ABG O2 Sat (Calculated) 19.7 ABG O2 Saturation 98.7 ABG Carboxyhemoglobin 1.00 ABG Methemoglobin 1.0 Brent Test YES A-a O2 Difference 13.0 Total Hemoglobin 14.4 Lactate 4.40 H Blood Gas Modality ROOM AIR FiO2 % 21.0 Acetone Level MODERATE A Orders Category Date Time Status ABG [RESP] Routine Lab 02/15/17 22:40 Completed ACETONE SERUM [CHEM] Stat Lab 02/15/17 22:29 Completed CBC WITH ELECTRONIC DIFF [HEME] Stat Lab 02/15/17 22:29 Results CMP [COMPREHENSIVE METABOLIC PANEL] [CHEM] Stat Lab 02/15/17 22:45 Ordered LIPASE [CHEM] Stat Lab 02/15/17 22:45 Ordered Insulin Human Regular [Humulin R] Med 02/15/17 22:40 Discontinued 5 unit IV NOW ONE Ns 1000 ml IV Bolus X1 Med 02/15/17 23:05 Ordered 0.9% Sodium Chloride Inj [Ns] 1,000 ml IV 999 mls/hr Result Diagrams: 02/15/17 22:29 02/15/17 22:29 - XRAY 1 XRAY Study: Chest, Abdomen XRAY Interpretation: No acute findings - CONSULTS/PCP/HOSPITALIST Notification #1 *Consult/PCP/Hospitalist*: Dr. Reagan Time Discussed: 00:04 Reason/Comments: hyperglycemia, dialysis pt. Consult Disposition: Admit Departure - Departure Date of Disposition Decision: 02/16/17 Time of Disposition Decision: 00:01 DIAGNOSIS: ESRD (end stage renal disease), Hyperglycemia, Noncompliance with medications Abdominal pain Qualifiers: Abdominal location: unspecified location Qualified Code(s): R10.9 - Unspecified abdominal pain Nausea & vomiting Qualifiers: Vomiting type: unspecified Vomiting Intractability: unspecified Qualified Code( s): R11.2 - Nausea with vomiting, unspecified Disposition: ADMITTED INPATIENT 09 Certified Medical Emergency: Emergent Condition: Stable - Critical Care Note This patient required my direct & personal management of CC.: No Attestation - Physician/ SARAI Attestation Patient care was provided by Advanced Practice Provider:: Yes Advanced Practice Provider:: Narcisa Marquez Advanced Practice Provider documentation review:: The Mid-level provider documentation, treatment plan and medical decision making was reviewed by the physician who agrees with all treatment and medical decision making by the MLP.
[2017-02-15 23:39] LABS: ALBUMIN 5.1 g/dL (3.5-5.0); CALCIUM 9.9 mg/dL (8.8-10.2); POTASSIUM 5.1 mmol/L (3.5-5.1); TOTAL BILIRUBIN 0.26 mg/dL (0.20-1.00); TOTAL PROTEIN 9.3 g/dL (6.3-8.3)
[2017-02-16] MEDS ORDERED: MORPHINE IV ONE (00:02)
[2017-02-16] MEDS ORDERED: HUMULIN R 100 UNIT in NS 100 ML IV SCH (02:45)
--- NOTE | 2017-02-16 03:42 | HISTORY AND PHYSICAL ---
PRIMARY CARE PHYSICIAN: Dr. Lee. CHIEF COMPLAINT: Abdominal pain, nausea, vomiting x2 days. HISTORY OF PRESENTING ILLNESS: This is a 36-year-old female with a history of diabetes mellitus type 1, end-stage renal disease on hemodialysis Tuesday, Tuesday, Tuesday, and hypertension, who presented to the emergency department with 2 days' history of having abdominal pain, nausea, and vomiting. She was seen in the ER. She had laboratories done, which did show she had markedly elevated blood glucose around the 800 range, and an anion gap of 40. Due to her presenting symptoms, it was suspected possibly she was in early DKA, and she will need admission for further management. At the time of my examination, she had denied any headache, fever, chills, chest pain, shortness of breath, hemoptysis, or any weight changes, but complained of having nausea and vomiting and not feeling well. PAST MEDICAL HISTORY: Diabetes mellitus type 1, end-stage renal disease on renal dialysis Tuesday, Tuesday, Tuesday, hypertension, hyperlipidemia. PAST SURGICAL HISTORY: Cholecystectomy. ALLERGIES: No known drug allergies. CURRENT MEDICATIONS: Listed in MAR. SOCIAL HISTORY: No history of smoking, alcohol, or illicit drug use. FAMILY HISTORY: No history of coronary disease. REVIEW OF SYSTEMS: Twelve point review of systems listed as in HPI. Other systems negative. PHYSICAL EXAMINATION: GENERAL: Cooperative, friendly female. She is resting more comfortably now. VITAL SIGNS: Temperature 97.8 degrees, pulse 115, respiration 24, blood pressure 181/109. HEENT: Atraumatic, normocephalic. Extraocular movements intact. PERRLA. NECK: Supple. CHEST: Clear to auscultation. CARDIOVASCULAR: Regular rate and rhythm. ABDOMEN: Soft. Positive bowel sounds. EXTREMITIES: No edema. NEUROLOGIC: She is awake, alert, oriented x3. GENITOURINARY: No bladder distention. SKIN: Warm. LABORATORIES AND STUDIES: WBC 11.70, hemoglobin 14.4, hematocrit 43.6, platelets 277,000. pH 7.60, pCO2 24. Sodium 135, potassium 5.1, chloride 72, CO2 is 18, BUN is 51, creatinine 7.1, glucose is 865. Anion gap is 45. Acetone level moderate. ASSESSMENT: A 36-year-old female with a history of diabetes mellitus type 1, endstage renal disease, and hypertension, who presented to the emergency department with 2 days' history of worsening nausea, vomiting, abdominal pain. She was evaluated in the ER. She was found to be markedly hyperglycemic, with blood glucose greater than 100. She had acetone in the urine and an anion gap. However, pH was more alkalotic, and it was suspected she probably will be going into early diabetic ketoacidosis. Subsequently, she will need hospitalization for further management. 1. Diabetes mellitus type 1 with hyperglycemia, with suspected early diabetic ketoacidosis onset. 2. Nausea, vomiting, abdominal pain, probably related to #1. 3. End-stage renal disease. 4. Hypertension. PLAN: 1. We will admit patient to ICU. 2. We will continue with a low-dose insulin regimen, about 2 units/hour. 3. The patient probably has adequate volume, due to the fact that she is anuric. We will hold off on IV fluids, as she is a dialysis patient. 4. We will consult Nephrology for dialysis. 5. We will monitor blood pressures and resume antihypertensive agent. 6. We will put patient on deep venous thrombosis prophylaxis with sequential compression devices. 7. We will continue to follow and reassess. cc: Jose Reagan MD
[2017-02-16] MEDS: ZOFRAN IV PRN ×2 (03:43→15:30)
[2017-02-16] MEDS: MORPHINE IV PRN ×3 (03:45→20:25)
[2017-02-16] MEDS: KEPPRA PO SCH ×3 (04:12→21:00)
[2017-02-16 06:41] LABS: MANUAL DIFF NEEDED? NO
[2017-02-16 06:51] LABS: BASO% 0.2 % (0.0-0.8); HEMATOCRIT 42.6 % (37.0-47.0); LYMPH# 1.05 X1000 (1.2-3.4); LYMPH% 10.9 % (20.5-51.1); MCH 29.8 PG (27-31); MCHC 32.9 g/dL (33-37); MCV 90.6 FL (81-99); MONO# 1.33 X1000 (0.11-0.59); MONO% 13.8 % (1.7-9.3); MPV 10.1 FL (7.4-10.4); NEUT% 75.1 % (42.2-75.2); PLT 266 X1000 (130-400)
[2017-02-16] MEDS ORDERED: AMBIEN PO PRN (07:03)
[2017-02-16 07:08] LABS: ALBUMIN 4.8 g/dL (3.5-5.0); CALCIUM 9.5 mg/dL (8.8-10.2)
[2017-02-16] MEDS ORDERED: NS 2,000 ML MISC PRN (07:45)
[2017-02-16] MEDS ORDERED: HEPARIN IV PRN (07:45)
[2017-02-16] MEDS ORDERED: TIGHT: 0.2 ML/HR MISC PRN (07:45)
--- NOTE | 2017-02-16 08:28 | Diag Imaging Result Doc PS360 ---
EXAM: FLAT/UPRIGHT ABD/1 VIEW CHEST INDICATION: abd. pain TECHNIQUE: 3 views COMPARISON: Abdominal radiograph dated 02/15/2017 and chest radiograph dated 01/02/2017 FINDINGS: There are unremarkable bowel gas and stool patterns. There is no obstructive bowel pattern. There is no evidence of large volume free abdominal gas. There is interval stability as compared to the previous study. A right Vas-Cath is in stable position. The lungs are grossly clear. There is no discrete pleural fluid collection or pneumothorax. The cardiomediastinal silhouette and central vasculature are grossly unremarkable. IMPRESSION: No evidence of acute pathology by plain radiograph. Electronically signed by Pop Mac 02/16/2017 8:26 AM
[2017-02-16] MEDS ORDERED: CENTRUM TABLET PO SCH (09:00)
[2017-02-16] MEDS ORDERED: CATAPRES PO SCH (09:00)
[2017-02-16] MEDS ORDERED: NS 2,000 ML ONE (09:25)
[2017-02-16] MEDS ORDERED: HEPARIN ONE (09:25)
[2017-02-16] MEDS: HUMULIN R SUBQ SCH ×4 (09:57→19:08)
[2017-02-16 11:07] LABS: MAGNESIUM 2.9 mg/dL (1.5-2.7); POTASSIUM 3.4 mmol/L (3.5-5.1)
--- NOTE | 2017-02-16 13:57 | CONSULTATION ---
DATE OF CONSULTATION: 02/16/2017 REASON FOR ADMISSION: DKA. REASON FOR CONSULTATION: Assist with medical management, ESRD management. CONSULTING PHYSICIAN: Dr. Reagan. HISTORY OF PRESENT ILLNESS: This is a 36-year-old female with a history of diabetes type 1 and end-stage renal disease who routinely dialyzes on a Tuesday, Tuesday, Tuesday schedule here in [place]. She states that she presented to the emergency department multiple times over the last several days with abdominal pain, nausea and vomiting. Her workup was such that she was able to be discharged each time. These symptoms became worse and she re-presented to the emergency room at which time she was found to have a blood glucose in the 800 range and an anion gap of 40. Patient was felt to be in early DKA was admitted to the hospital under DKA protocol for further management. We have been asked to see her to assist. Today she states that she has not had any more vomiting although she still feels somewhat nauseated and continues to have some mild abdominal pain. She denies any chest pain, shortness of breath, any change in urine output or bowel changes. She has had no swelling. She has had no weakness. PAST MEDICAL HISTORY: Diabetes type 1. End-stage renal disease. Hemodialysis Tuesday, Tuesday, Tuesday. Hypertension, hyperlipidemia, anemia of chronic disease, GERD, history of stroke, history of UTI, diastolic heart failure, seizure disorder. PAST SURGICAL HISTORY: Cholecystectomy. She has an AV fistula right upper extremity. ALLERGIES: No known drug allergies. HOME MEDICATIONS: Amlodipine, clonidine, Epogen, Lasix, insulin, labetalol, Keppra, lisinopril, mirtazapine, morphine, multivitamin, ondansetron, Trileptal, Protonix, Pravachol , Carafate, Ambien. FAMILY HISTORY: Noncontributory. SOCIAL HISTORY: No ETOH, tobacco or illicit drug use. REVIEW OF SYSTEMS: Pertinent positives noted above in the HPI. PHYSICAL EXAMINATION: Vital Signs: Temperature 98.1 degrees, pulse 100, respiratory rate 13, blood pressure 111/84. Intake and output have not been recorded. General: This is a middle-aged female, resting in bed. She is awake, alert, in no acute distress. HEENT: Normocephalic atraumatic. Oral mucosa is moist. Neck: Supple. There is no JVD. Cardiovascular: Regular rate and rhythm. There is no murmur or gallop appreciated. Pulmonary: She has equal excursion. She is clear bilaterally. Abdomen: Soft. It is diffusely mildly tender. Positive bowel sounds. : Not inspected. She has minimal void. Extremities: No clubbing, cyanosis or edema. Integumentary: Skin is warm and dry. No rash or lesion noted. AV fistula right upper extremity with a positive thrill. Neuro: Grossly nonfocal. LAB DATA: WBC of 9.6, hemoglobin 14.0. Sodium 137, potassium 4.0, CO2 28, creatinine 7.9, calcium 9.5, phosphorus 5.9, albumin 4.8. Anion gap of 34 and a blood glucose of 578. ASSESSMENT/PLAN: 1. End-stage renal disease management. Today is her routine dialysis day. We will plan to dialyze her on a 2 K bath/UF to dry weight/four hour treatment. 2. Electrolytes, acid-base balance. These are acceptable. See #1 for plan. 3. Anemia stable. 4. Hypertension controlled. 5. DKA. She is on DKA protocol followed by the primary. Seen, data reviewed, discussed with Carl Fernandez on 02/16/17. I agree with the above assessment and plan of care. rg Dictated by MANNY Ordonez for Hardy Kay MD cc: Hardy Kay MD [facility]
[2017-02-16 14:59] LABS: CALCIUM 8.8 mg/dL (8.8-10.2); MAGNESIUM 2.2 mg/dL (1.5-2.7); POTASSIUM 2.7 mmol/L (3.5-5.1)
[2017-02-16] MEDS: CARAFATE LIQUID PO SCH ×3 (15:30→22:31)
[2017-02-16] MEDS: TRANDATE PO SCH ×3 (15:39→17:34)
[2017-02-16] MEDS: PROTONIX PO SCH (16:40)
[2017-02-16] MEDS: NORVASC PO SCH ×2 (16:41→20:45)
[2017-02-16] MEDS: LASIX PO SCH ×2 (16:41→22:45)
[2017-02-16] MEDS: TRILEPTAL PO SCH ×2 (17:30→21:00)
[2017-02-16] MEDS: EPOGEN SUBQ SCH (17:30)
[2017-02-16] MEDS: PATIENT'S OWN MED PO SCH (17:30)
[2017-02-16] MEDS: PRINIVIL PO SCH (17:31)
[2017-02-16 18:53] LABS: CALCIUM 8.9 mg/dL (8.8-10.2); MAGNESIUM 2.2 mg/dL (1.5-2.7); POTASSIUM 4.1 mmol/L (3.5-5.1)
--- NOTE | 2017-02-16 18:55 | PROGRESS NOTE ---
DATE: 02/16/2017 SUBJECTIVE: Patient was admitted early this morning to Dr. Jose Reagan. A 36-year-old female with a history of diabetes mellitus type 1 and end-stage renal disease, on hemodialysis Tuesday, Tuesday, and Tuesday. Hypertension. Presented to the emergency room with 2-day history of having abdominal pain, nausea and vomiting. She was seen in the ER and had laboratory tests. This did show she had markedly elevated blood glucose around 800 range and an anion gap of 40. Due to her presenting symptoms, suspect she was in early DKA. Needed admission for further management. At time of admission, she denied any headache or fever, chills, chest pain, shortness of breath, hemoptysis or weight change though. PAST SURGICAL HISTORY: Status post cholecystectomy. She was admitted with diabetes mellitus type 1, hyperglycemia, suspect early diabetic ketoacidosis. She was begun on an insulin drip and she was sent for hemodialysis. Blood sugar dipped down into the 40s and 50s. Insulin was turned off and she seemed to feel better and do better post dialysis. OBJECTIVE: Vital signs: In the unit, temperature 97.4 degrees, pulse 90, respirations 16, blood pressure 97/68. Lungs: Clear in all lung vail. Cardiovascular: Regular rhythm and rate without murmur or S3. Abdomen: Soft. Skin: Warm and dry. Height 5 feet 3 inches. Weight 119 pounds. DIAGNOSTICS: Output is over 900 mL. Blood sugars 578, 338 and then they dipped down in the low 100s. Electrolytes this morning. Sodium 144, potassium 2.7, chloride 98, bicarb 34, BUN 17, creatinine 3.1. This is post dialysis. Note the blood gases on arrival, pH was 7.60, pCO2 24, PO2 107, O2 saturation 98%. ASSESSMENT AND PLAN: 1. End-stage renal disease management. Going to go for dialysis. Use a 2K bath. Try get to dry weight. 2. Electrolytes and acid base. Note she appears to be in alkalosis. She did get initiated on the diabetic ketoacidosis protocol. Blood sugars dipped down pretty quickly, so we will put her on a sliding scale to encourage her p.o. intake. Watch her blood pressure and watch her electrolytes. cc: Brent Blum MD
[2017-02-16] MEDS ORDERED: ATIVAN IV ONE (20:08)
[2017-02-16] MEDS: REMERON PO SCH (20:38)
[2017-02-16] MEDS: PRAVACHOL PO SCH (21:00)
[2017-02-16] MEDS: CATAPRES PO SCH (21:00)
[2017-02-16 22:39] LABS: CALCIUM 9.6 mg/dL (8.8-10.2); MAGNESIUM 2.4 mg/dL (1.5-2.7); POTASSIUM 4.3 mmol/L (3.5-5.1)
[2017-02-17] MEDS: HUMULIN R SUBQ SCH ×5 (01:00→21:06)
[2017-02-17 03:41] LABS: CALCIUM 9.4 mg/dL (8.8-10.2); MAGNESIUM 2.5 mg/dL (1.5-2.7); POTASSIUM 3.9 mmol/L (3.5-5.1)
[2017-02-17] MEDS: CARAFATE LIQUID PO SCH ×4 (03:53→21:02)
[2017-02-17] MEDS: PROTONIX PO SCH (06:40)
[2017-02-17] MEDS: TRANDATE PO SCH ×3 (08:35→21:02)
[2017-02-17] MEDS: CATAPRES PO SCH ×2 (08:35→21:02)
[2017-02-17] MEDS: PRINIVIL PO SCH (08:35)
[2017-02-17] MEDS: TRILEPTAL PO SCH ×2 (08:44→21:02)
[2017-02-17] MEDS: LASIX PO SCH (08:44)
[2017-02-17] MEDS: THERA M PLUS PO SCH (08:44)
[2017-02-17] MEDS: KEPPRA PO SCH (08:44)
[2017-02-17] MEDS: NORVASC PO SCH ×2 (08:44→21:02)
--- NOTE | 2017-02-17 09:43 | PROGRESS NOTE ---
DATE: 02/17/2017 SUBJECTIVE: She says that she does not feel real good this morning. Complains of some nausea and some epigastric discomfort. PHYSICAL EXAMINATION: Vital Signs: Temperature 97.4 degrees, pulse 86, respirations 12, blood pressure 84/64. HEENT: Pupils are equal and round. CVP less than 6 cm. Lungs: Clear in all lung vail. Cardiovascular Examination: Regular rhythm and rate without murmur or S3. Abdomen: Soft. Skin: Is warm and dry. LABORATORY DATA: Blood sugar 136. Lab from yesterday reviewed. Chemistries reviewed from today. Sodium 137, potassium 3.9, chloride 91, BUN 32, creatinine 6.4, blood sugar is 139, 187, 254, 136. ASSESSMENT AND PLAN: 1. End-stage renal disease, had dialysis yesterday. Volume status looks pretty good. Electrolytes look pretty good and acid base is stable. 2. Anemia, stable. 3. Hypertension. Blood pressure control. 4. Epigastric discomfort. We will see how she does with some food. We will move her to the floor. Abdominal x-ray, no evidence of acute pathology. 5. Review of her orders. I do not see any change. She is on Carafate 1 g every 6, Pravachol 80 mg at bedtime. She is on Protonix 40 mg by mouth daily. I will see if I can change that to omeprazole. She is on Trileptal 600 mg twice a day, a multivitamin, Remeron 45 mg at bedtime, lisinopril 40 mg a day, Keppra 750 mg twice a day, Catapres 0.2 mg twice a day. cc: Brent Blum MD
[2017-02-17] MEDS ORDERED: NS 1,000 ML IV ONE (16:09)
--- NOTE | 2017-02-17 16:28 | PROGRESS NOTE ---
DATE: 02/17/2017 SUBJECTIVE: She states she still does not feel well. Ongoing nausea. No pain. No shortness of breath. OBJECTIVE: Vital Signs: Blood pressure 108/68, heart rate 92, respiration 14, afebrile. General: On physical exam, no acute distress. Appears ill. Skin: Warm and dry. Eyes: Conjunctivae are pink. Neck: Neck veins are not visible. Heart: Regular. Lungs: Have equal breath sounds. No crackles. Abdomen: Soft, nontender. Mildly distended. Bowel sounds are present. Extremities: Have no edema, clubbing, or cyanosis. IMPRESSION: 1. End-stage kidney disease. She had her routine dialysis yesterday. Next treatment tomorrow. 2. Metabolic acidosis. Her anion gap has risen again today. I will recheck her serum ketones. She may well need more intravenous insulin. 3. Metabolic alkalosis. This is underlying her diabetic ketoacidosis. Presumably related to contraction alkalosis. No other obvious causes. Will hydrate her. 4. Hypertension. Blood pressure is actually low. cc: Hardy Kay MD
[2017-02-17 17:20] LABS: ACETONE SERUM SMALL (NEGATIVE)
[2017-02-17] MEDS ORDERED: VALIUM IV ONE ×2 (17:27→18:06)
[2017-02-17] MEDS ORDERED: VALIUM ONE ×2 (17:29→17:57)
[2017-02-17 17:43] LABS: AGAP 20; BUN 41 mg/dL (8-22); CALCIUM 8.7 mg/dL (8.8-10.2); CHLORIDE 83 mmol/L (98-107); COSMO 294; POTASSIUM 5.2 mmol/L (3.5-5.1); SODIUM 126 mmol/L (136-145); TCO2 23 mmol/L (25-35)
--- NOTE | 2017-02-17 18:51 | PROGRESS NOTE ---
DATE: 02/17/2017 SUBJECTIVE: She started having more nausea and moved her to the floor and she began having some seizure activity about 6 o'clock p.m. We gave her IV Valium and she seemed to improve and then had to give her another 10 mg. She started having seizure activity. I am going to move her to the floor. Note her blood sugar is bouncing up again. So I guess I need to start her on a little baseline insulin. We will also use sliding scale. She appears to have a combination of metabolic acidosis. I suspect what is an anion gap acidosis, but also metabolic alkalosis. The blood sugars are bouncing around pretty dramatically as well as her bicarb and I am assuming she has volume contraction. I am going to give her back some fluid with normal saline, start her on D5 normal saline. I am going to go up on her Keppra, give it to her IV 1000 mg twice a day. I will give her Ativan p.r.n. seizures 1 mg IV every hours p.r.n., note that the blood pressures were pretty labile and we were giving her amlodipine twice a day. She is also getting Prinivil 40 mg a day, Trileptal 600 mg p.o. b.i.d., and Remeron 45 mg a day, Carafate 1 g q.6 hours. She is getting Trandate or labetalol 400 mg p.o. t.i.d. I am probably going to have to reduce that down. cc: Brent Blum MD
[2017-02-17] MEDS: KEPPRA 1,000 MG in NS 100 ML IV SCH (20:00)
[2017-02-17] MEDS: REMERON PO SCH (21:02)
[2017-02-17] MEDS: PRAVACHOL PO SCH (21:02)
[2017-02-17] MEDS: D5 NS 1,000 ML IV SCH (21:10)
[2017-02-17] MEDS: ZOFRAN IV PRN (21:17)
[2017-02-18] MEDS: CARAFATE LIQUID PO SCH ×4 (02:02→20:29)
[2017-02-18] MEDS: HUMULIN R SUBQ SCH ×7 (02:08→22:40)
[2017-02-18] MEDS: NS 1,000 ML IV SCH ×2 (05:56→17:30)
[2017-02-18 05:57] LABS: HEMATOCRIT 37.7 % (37.0-47.0); MCH 30.7 PG (27-31); MCHC 31.8 g/dL (33-37); MCV 96.4 FL (81-99); MPV 10.2 FL (7.4-10.4); RBC 3.91 XMIL (4.2-5.4)
[2017-02-18] MEDS: PRILOSEC PO SCH (06:07)
[2017-02-18] MEDS: KEPPRA 1,000 MG in NS 100 ML IV SCH ×2 (06:07→17:03)
[2017-02-18 06:33] LABS: ALBUMIN 3.7 g/dL (3.5-5.0); CALCIUM 8.6 mg/dL (8.8-10.2); MAGNESIUM 2.3 mg/dL (1.5-2.7); POTASSIUM 3.9 mmol/L (3.5-5.1)
[2017-02-18 06:41] LABS: FREE T4 0.59 ng/dL (0.93-1.70)
[2017-02-18] MEDS ORDERED: TIGHT: 0.2 ML/HR MISC PRN (06:55)
[2017-02-18] MEDS ORDERED: NS 2,000 ML MISC PRN (06:55)
[2017-02-18] MEDS ORDERED: HEPARIN IV PRN (06:55)
[2017-02-18] MEDS ORDERED: NS 2,000 ML ONE (07:56)
[2017-02-18] MEDS ORDERED: HEPARIN ONE (07:57)
[2017-02-18] MEDS ORDERED: ATIVAN ONE (11:05)
[2017-02-18] MEDS: ATIVAN IV PRN (11:09)
--- NOTE | 2017-02-18 11:10 | PROGRESS NOTE ---
DATE: 02/18/2017 SUBJECTIVE: She is still stating that she feels bad today. She has ongoing nausea. No shortness of breath. OBJECTIVE: Vital Signs: Blood pressure 134/76, heart rate 84, respirations 16, afebrile. General: She is ill-appearing but not in acute distress. Skin: Warm and dry. HEENT: Conjunctivae are pink. Pupils are equal. Neck: Neck veins are not visible. Heart: Regular with a gallop. Lungs: Equal breath sounds. No crackles. Abdomen: Soft and nontender. Bowel sounds are present. Extremities: No edema, clubbing, or cyanosis. LABORATORY DATA: Sodium is 133, potassium 3.9, chloride 88, bicarbonate 21, BUN 43, and creatinine 8.1. IMPRESSION: 1. End-stage kidney disease. She is currently on dialysis. Her blood pressure has dropped during treatment but she is 3 kilos above her dry weight. Observe but we may have to adjust her dry weight upward if we are not able to achieve our target. 2. Nausea and vomiting. Continue supportive care. 3. Diabetic ketoacidosis. Managed by the primary team. 4. Hypertension, controlled with hypotension on dialysis. cc: Hardy Kay MD
[2017-02-18] MEDS ORDERED: STERILE WATER INJ. INJ SCH (15:45)
--- NOTE | 2017-02-18 15:49 | PROGRESS NOTE ---
DATE: 02/18/2017 She feels about the same. Apparently she had a little seizure activity down during dialysis. Appears to be breathing comfortably. She looks lethargic but she does answer questions. She is alert oriented x3. Temp 98.5 degrees, pulse 86, respirations 16, blood pressure 99/52. CVP less than 6 cm.Lungs: Clear in all lung vail. Cardiovascular: Regular rhythm and rate without murmur or S3. Abdomen: Soft. Skin: Is warm and dry. Urine output over 3 L. Blood sugar 476, 203, 113. White count 7880, hematocrit 37, platelet count 209,000. Fingerstick blood sugars I have 87, 93 and 91. She has a free T4 that is low, TSH is 46. Free T4 that is supposed to be 0.59. I am going to recheck that cortisol level, was 4.2, which is low. Her blood pressure is a little low. ASSESSMENT AND PLAN: 1. End-stage kidney disease, currently on dialysis. Blood pressure dropped during treatment. 2. Nausea and vomiting. Aware. 3. Diabetic ketoacidosis but also appears to have volume contraction alkalosis. 4. Hypotension and cortisol levels low in the morning. I am going to get a 24 hour urine cortisol and then probably need to go ahead and treat her as probable adrenal insufficiency. cc: Brent Blum MD
[2017-02-18] MEDS: TRANDATE PO SCH ×2 (16:14→22:39)
[2017-02-18] MEDS: TRILEPTAL PO SCH ×2 (16:15→20:30)
[2017-02-18] MEDS: CATAPRES PO SCH ×2 (16:16→22:45)
[2017-02-18] MEDS: NORVASC PO SCH ×2 (16:16→22:46)
[2017-02-18] MEDS: PRINIVIL PO SCH (16:36)
[2017-02-18] MEDS: PATIENT'S OWN MED PO SCH (16:37)
[2017-02-18] MEDS: SOLU-CORTEF IV SCH ×2 (17:02→22:40)
[2017-02-18] MEDS: EPOGEN SUBQ SCH (17:02)
[2017-02-18] MEDS: THERA M PLUS PO SCH (17:02)
[2017-02-18] MEDS: D5 NS 1,000 ML IV SCH (18:13)
[2017-02-18] MEDS: REMERON PO SCH (20:30)
[2017-02-18] MEDS: PRAVACHOL PO SCH (20:30)
[2017-02-19] MEDS: HUMULIN R SUBQ SCH ×6 (01:15→20:13)
[2017-02-19] MEDS: CARAFATE LIQUID PO SCH ×4 (04:29→20:15)
[2017-02-19] MEDS: NS 1,000 ML IV SCH ×2 (04:29→20:12)
[2017-02-19 05:19] LABS: HEMATOCRIT 38.3 % (37.0-47.0); HEMOGLOBIN 12.4 g/dL (12.0-16.0); MCH 30.9 PG (27-31); MCHC 32.4 g/dL (33-37); MCV 95.5 FL (81-99); RBC 4.01 XMIL (4.2-5.4)
[2017-02-19] MEDS: D5 NS 1,000 ML IV SCH ×3 (05:20→21:39)
[2017-02-19 05:48] LABS: CALCIUM 8.9 mg/dL (8.8-10.2); MAGNESIUM 2.1 mg/dL (1.5-2.7); POTASSIUM 4.9 mmol/L (3.5-5.1)
[2017-02-19 05:59] LABS: FREE T4 0.65 ng/dL (0.93-1.70)
[2017-02-19] MEDS: SOLU-CORTEF IV SCH ×3 (06:09→15:25)
[2017-02-19] MEDS: KEPPRA 1,000 MG in NS 100 ML IV SCH ×2 (06:10→17:48)
[2017-02-19] MEDS: PRILOSEC PO SCH (06:10)
[2017-02-19] MEDS: CATAPRES PO SCH ×2 (08:00→20:16)
[2017-02-19] MEDS: PRINIVIL PO SCH (08:21)
[2017-02-19] MEDS: THERA M PLUS PO SCH (08:21)
[2017-02-19] MEDS: TRANDATE PO SCH ×2 (08:22→20:15)
[2017-02-19] MEDS: NORVASC PO SCH ×2 (08:22→20:16)
--- NOTE | 2017-02-19 08:34 | PROGRESS NOTE ---
DATE: 02/19/2017 SUBJECTIVE: She was sleeping soundly and appeared comfortable. Breathing comfortably. OBJECTIVE: Vital Signs: Temp 97 degrees, pulse 89, respirations 15, blood pressure 130/87. CVP less than 6 cm. Weight 126 pounds. Lungs: Clear in all lung vail. Cardiovascular: Regular rhythm and rate without murmur or S3. Abdomen: Soft. Skin: Warm and dry. : Urine output appears to be almost 3 L. I think that yesterday, had over 4 L taken off. Presented with dialysis. LABORATORY DATA: White count 6320, hematocrit 38, platelet count 205,000. Sodium 137, potassium 4.9, chloride 97, BUN 29, creatinine 6.3, blood sugars 278, 243, 286. ASSESSMENT AND PLAN: 1. End-stage renal disease. Continue dialysis. Blood pressure seems to be doing better. 2. Nausea and vomiting and propensity for diabetic ketoacidosis. I have continued the sugar and insulin. 3. Diabetic ketoacidosis. Volume contraction alkalosis. So, we have given her some volume. At the same time, I have to continue to diurese. 4. Hypotension. I added some cortisol. Appears cortisol level is low. I will see if this will help. Blood pressures have been dropping during treatment. Her volume status looks good. Electrolytes look good. Acid-base status at this point, looks good. Bicarb 23, anion gap is 17. Blood sugars running in the mid 200s. We will see if we can adjust her insulin. cc: Brent Blum MD
[2017-02-19] MEDS: TRILEPTAL PO SCH ×2 (09:04→20:15)
[2017-02-19] MEDS: LANTUS SUBQ SCH (09:30)
[2017-02-19] MEDS: PRAVACHOL PO SCH (20:15)
[2017-02-19] MEDS: REMERON PO SCH (20:15)
[2017-02-20] MEDS: SOLU-CORTEF IV SCH ×2 (01:24→14:38)
[2017-02-20] MEDS: HUMULIN R SUBQ SCH ×6 (01:24→21:38)
[2017-02-20] MEDS: CARAFATE LIQUID PO SCH ×5 (01:35→21:37)
[2017-02-20] MEDS: D5 NS 1,000 ML IV SCH ×2 (04:32→21:37)
[2017-02-20 05:49] LABS: HEMATOCRIT 36.5 % (37.0-47.0); HEMOGLOBIN 11.6 g/dL (12.0-16.0); MCH 30.5 PG (27-31); MCHC 31.8 g/dL (33-37); MCV 96.1 FL (81-99); MPV 10.6 FL (7.4-10.4); RBC 3.8 XMIL (4.2-5.4)
[2017-02-20] MEDS: PRILOSEC PO SCH (06:08)
[2017-02-20] MEDS: KEPPRA 1,000 MG in NS 100 ML IV SCH (06:08)
[2017-02-20 06:34] LABS: ALBUMIN 3.8 g/dL (3.5-5.0); CALCIUM 8.9 mg/dL (8.8-10.2); MAGNESIUM 2.1 mg/dL (1.5-2.7); POTASSIUM 4.1 mmol/L (3.5-5.1)
[2017-02-20] MEDS ORDERED: INSULIN PEN NEEDLES ONE (08:15)
[2017-02-20] MEDS: TRILEPTAL PO SCH ×2 (09:27→21:39)
[2017-02-20] MEDS: CATAPRES PO SCH ×2 (09:27→21:39)
[2017-02-20] MEDS: PRINIVIL PO SCH (09:27)
[2017-02-20] MEDS: NORVASC PO SCH ×2 (09:28→21:39)
[2017-02-20] MEDS: TRANDATE PO SCH ×2 (09:28→21:39)
[2017-02-20] MEDS: THERA M PLUS PO SCH (09:28)
[2017-02-20] MEDS: LANTUS SUBQ SCH (09:28)
[2017-02-20] MEDS: PATIENT'S OWN MED PO SCH (09:30)
--- NOTE | 2017-02-20 10:14 | PROGRESS NOTE ---
DATE: 02/20/2017 SUBJECTIVE: Ms. Chaparro is sleeping and resting comfortably. Nurses state that she seems to be pretty blue and depressed. Blood sugars still very labile. PHYSICAL EXAMINATION: Vital Signs: Afebrile, temperature 97.7 degrees, pulse 93, respirations 14, blood pressure 185/82. Lungs: Are clear in all lung vail anterior and posterior. Cardiovascular Examination: Regular rhythm and rate without murmur or S3. Abdomen: Soft. Skin: Is warm and dry. Is and Os: Urine output 2000 mL. LABORATORY DATA: Blood sugar 173, 128, 279. White count 9930, hematocrit 36, platelet count 203,000. Sodium 140, potassium 4.1, chloride 101, bicarb 21, BUN 44, creatinine 7.5, blood sugar 126, 107, 128. ASSESSMENT AND PLAN: 1. End-stage renal disease. Continue hemodialysis. Volume status, electrolytes look good at this point. 2. Nausea and vomiting. Propensity to go into diabetic ketoacidosis. Sugars bouncing around from 100-400. I put her back on her Levemir. She looks more comfortable. 3. Acidosis and diabetic ketoacidosis plus a volume contraction alkalosis which is difficult to manage at the present time. I have her on D5 normal saline running at 65 mL an hour. She does appear more comfortable. We will discuss with Dr. Kay. She is getting Epogen 10,000 units with dialysis. She is on hydrocortisone 100 mg intravenous every 8. I will cut that down to 50 mg every 12 hours. She is on Lantus 12 units subcutaneously every morning, Trandate 200 mg by mouth twice a day. I have given her levetiracetam 1000 mg intravenous every 12 hours. We will switch that to oral. Prinivil 40 mg daily, Ativan as needed, Remeron 45 mg at bedtime, multivitamin, omeprazole 40 mg daily, Trileptal 600 mg by mouth twice a day, Pravachol 80 mg by mouth at bedtime, Carafate 1 g every 6 hours, and Ambien 10 mg as needed at bedtime. cc: Brent Blum MD
[2017-02-20] MEDS: REMERON PO SCH (21:38)
[2017-02-20] MEDS: PRAVACHOL PO SCH (21:39)
[2017-02-20] MEDS: NS 1,000 ML IV SCH (22:17)
[2017-02-20] MEDS: ATIVAN IV PRN ×2 (23:32→23:45)
[2017-02-20] MEDS ORDERED: ATIVAN IV ONE (23:57)
[2017-02-20] MEDS ORDERED: PHENOBARBITAL IV ONE (23:57)
[2017-02-21] MEDS: SOLU-CORTEF IV SCH ×2 (00:08→13:56)
[2017-02-21] MEDS: HUMULIN R SUBQ SCH ×7 (00:28→20:39)
[2017-02-21] MEDS ORDERED: PNEUMOVAX 23 IM ONE (02:21)
[2017-02-21] MEDS: CARAFATE LIQUID PO SCH ×4 (06:07→22:00)
[2017-02-21] MEDS ORDERED: HEPARIN IV PRN (06:44)
[2017-02-21] MEDS ORDERED: TIGHT: 0.2 ML/HR MISC PRN (06:44)
[2017-02-21] MEDS ORDERED: NS 2,000 ML MISC PRN (06:44)
--- NOTE | 2017-02-21 07:32 | Diag Imaging Result Doc PS360 ---
EXAM: HEAD W/O CONTRAST HISTORY: Fell/unresponsive TECHNIQUE: COMPARISON: 12/13/2016 FINDINGS: No parenchymal hemorrhage. No epidural or subdural hematoma. No subarachnoid hemorrhage. No skull fracture. No mass identified on this noncontrasted exam. No hydrocephalus. 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 No sinus opacification. IMPRESSION: No hemorrhage. No injury. A preliminary report was given at 2:00 AM. Electronically signed by Brayan Wooten 02/21/2017 7:30 AM
[2017-02-21] MEDS: NS 1,000 ML IV SCH ×3 (08:26→16:59)
[2017-02-21] MEDS ORDERED: HEPARIN ONE (09:11)
[2017-02-21] MEDS ORDERED: NS 2,000 ML ONE (09:11)
--- NOTE | 2017-02-21 09:11 | PROGRESS NOTE ---
DATE: 02/21/2017 SUBJECTIVE: Ms. Chaparro had a rough night. She had some more seizures last night. She is resting comfortably at the present time. OBJECTIVE: Vital signs: Temperature is 97.5 degrees, pulse 93, respirations 14, blood pressure 164/99. HEENT: Pupils are equal and round. Neck: CVP less than 6 cm. Lungs: Clear in all lung vail. Cardiovascular: Regular rhythm and rate without murmur or S3. Intake and output: Urine output from yesterday 1600. LAB: White count 9,930, hematocrit 36, platelet count 203,000. 354, 426, 363. Blood work from yesterday, sodium 140, potassium 4.1, chloride 101, BUN 44, bicarb 21, creatinine 7.5. CT of the head was done early this morning after a seizure. No hemorrhage. No injury. She did apparently fall and bumped her head as well, so there was no injury in the head. ASSESSMENT AND PLAN: 1. End-stage renal disease. Volume status looks good. Electrolytes look good and fairly stable. 2. Nausea and vomiting with propensity for ketoacidosis. Acidosis appears to have resolved. 3. Seizures. Still having some seizures. Patient put on some phenobarbital. We will put her back on Keppra. Guess we will have to go at 1000 mg q.12 hours. Will ask neurology to help assist with seizure control. cc: Brent Blum MD
[2017-02-21] MEDS ORDERED: KEPPRA 1,000 MG/NS 1,000 MG/100 ML IVPB IV SCH (10:00)
--- NOTE | 2017-02-21 10:28 | PROGRESS NOTE ---
DATE: 02/21/2017 SUBJECTIVE: Overnight she had multiple seizures and was found on the floor. She was treated with several different medications to control her seizures and underwent a CT of the head which did not demonstrate any acute changes. This morning she is somnolent. OBJECTIVE: Vital Signs: Blood pressure 164/99, heart rate 93, respirations 15, afebrile. General: She is a young woman, lying on her back, in no distress. Skin: Warm and dry. HEENT: Conjunctivae are pink. Pupils are equal. Oropharynx is moist. Neck: Neck veins are not distended. Trachea is midline. Heart: Regular with a systolic murmur present. Lungs: Have equal breath sounds. Shallow. No crackles. Abdomen: Soft, nontender. Bowel sounds are present. Extremities: Have no edema, clubbing, or cyanosis. LABORATORY DATA: None today. IMPRESSIONS: 1. End-stage kidney disease. She is due for her routine hemodialysis today. We will use her routine orders. Given that she had a negative head CT we will proceed with heparin use. Two potassium bath. 2. Seizure disorder. This has been difficult to manage over her last several admissions to the hospital. Her Trileptal was titrated on her last admission. 3. Anemia. In target. 4. Diabetic ketoacidosis. No new data. cc: Hardy Kay MD
[2017-02-21] MEDS: PRILOSEC PO SCH (10:44)
[2017-02-21] MEDS: D5 NS 1,000 ML IV SCH ×2 (10:44→17:18)
[2017-02-21] MEDS ORDERED: ATIVAN ONE (12:15)
[2017-02-21] MEDS: ATIVAN IV PRN ×2 (12:26→20:56)
[2017-02-21] MEDS: TRILEPTAL PO SCH ×2 (13:56→20:40)
[2017-02-21] MEDS: NORVASC PO SCH ×2 (13:56→20:39)
[2017-02-21] MEDS: TRANDATE PO SCH ×2 (13:56→20:38)
[2017-02-21] MEDS: THERA M PLUS PO SCH (13:56)
[2017-02-21] MEDS: PRINIVIL PO SCH (13:56)
[2017-02-21] MEDS: CATAPRES PO SCH ×2 (13:56→20:38)
[2017-02-21] MEDS: LANTUS SUBQ SCH (13:58)
[2017-02-21] MEDS: EPOGEN SUBQ SCH (18:02)
[2017-02-21] MEDS: PRAVACHOL PO SCH (20:38)
[2017-02-21] MEDS: REMERON PO SCH (20:38)
[2017-02-21] MEDS: MORPHINE IV PRN (20:39)
[2017-02-21] MEDS ORDERED: KEPPRA PO ONE (22:00)
[2017-02-22] MEDS: SOLU-CORTEF IV SCH ×2 (00:43→13:37)
[2017-02-22] MEDS: HUMULIN R SUBQ SCH ×6 (00:43→23:11)
[2017-02-22] MEDS: CARAFATE LIQUID PO SCH ×3 (04:13→17:30)
[2017-02-22] MEDS: PRILOSEC PO SCH (06:36)
[2017-02-22] MEDS: KEPPRA PO SCH ×2 (09:41→23:05)
[2017-02-22] MEDS: TRANDATE PO SCH ×2 (09:43→23:05)
[2017-02-22] MEDS: CATAPRES PO SCH ×2 (09:43→23:06)
[2017-02-22] MEDS: TRILEPTAL PO SCH ×2 (09:44→23:06)
[2017-02-22] MEDS: PATIENT'S OWN MED PO SCH (09:45)
[2017-02-22] MEDS: THERA M PLUS PO SCH (09:46)
[2017-02-22] MEDS: PRINIVIL PO SCH (09:46)
[2017-02-22] MEDS: NORVASC PO SCH ×2 (09:47→23:05)
[2017-02-22] MEDS: LANTUS SUBQ SCH (09:47)
--- NOTE | 2017-02-22 10:23 | PROGRESS NOTE ---
DATE: 02/22/2017 TIME SEEN: 0800 SUBJECTIVE: Ms. Chaparro is resting quietly in bed. She remains slightly confused. She does deny chest pain or increased work of breathing. OBJECTIVE: Vital Signs: Her most recent vital signs are temperature 98.2 degrees, blood pressure 184/64, heart rate 95, respirations 18. She is on room air. Last recorded saturation 99%. She has had 980 in. She has had 4 L removed on dialysis. Laboratory Data: Her labs yesterday showed a potassium of 4.1, with a hemoglobin of 11.6, with labs planned in the a.m. prior to dialysis. Physical Examination: General: This is a 36-year-old, female. She is resting quietly in bed. Head of the bed is elevated. Her skin is warm and dry. HEENT : Normocephalic, atraumatic. Conjunctivae are pink. Her pupils are equal and reactive to light. Mucous membranes moist. Neck: Supple. Trachea midline. No JVD. Cardiovascular: Regular rate and rhythm. She has a soft systolic murmur. Lungs: Clear to auscultation anteriorly. Equal excursion on room air. Abdomen: Soft, nontender. Positive bowel sounds. Genitourinary: Not inspected. Minimal void with dialysis assist. Extremities: No edema. No clubbing or cyanosis. Integumentary: Skin is warm and dry. No rashes or lesions evident. ASSESSMENT AND PLAN: 1. End-stage renal disease. Patient had her routine dialysis treatment yesterday. We will plan for dialysis in the morning. We will plan for an appropriate bath. 2. Seizure disorder. Patient has been difficult to control during this hospitalization. CT of the head done yesterday was negative after a fall. 3. Electrolytes, acid-base balance, and anemia. These have been close to target. 4. Diabetic ketoacidosis. They continue to monitor with sliding scale per primary care. I would to thank you for allowing us to follow with this patient. Seen, data reviewed, discussed with Gerri Fitzgerald on 02/22/17. I agree with the above assessment and plan of care. rg Dictated by MANNY Hatch for Hardy Kay MD cc: MANNY Hatch MD [facility] SYSTEMH[facility]
--- NOTE | 2017-02-22 10:34 | PROGRESS NOTE ---
DATE: 02/22/2017 SUBJECTIVE: She is awake and alert. Feels better today. She did eat most of her breakfast and had a better night. She is hearing voices she said, hearing her sister and her sister's child she said at the house. OBJECTIVE: Vital signs: Temp 98.4 degrees, pulse 96, respirations 16, blood pressure 159/90. HEENT: Pupils are equal. Neck: CVP less than 6 cm. Lungs: Clear in all lung vail. Cardiovascular: Regular rhythm and rate without murmur or S3. Abdomen: Soft. Skin: Warm and dry. They dialyzed I think 3 L off yesterday. LAB: Reviewed from the . Hematocrit 36, hemoglobin 11. Blood sugar is doing much better, 236, 221, 257, 205. ASSESSMENT AND PLAN: 1. End-stage kidney disease. Continue hemodialysis. Her volume status and electrolytes and anemia all look stable. 2. Seizure disorder. Note that in the looking through her chart and reading Dr. Kay's note, her Trileptal was titrated last admission. Appreciate Dr. Mauro's help. We are going to add I think an extra dose of Keppra post dialysis. I think the watson to her seizures also is sugar control, which seems to be leveling off, which is encouraging. REVIEW OF MEDICATIONS: She is on Ambien 10 mg at bedtime p.r.n., Carafate 1 g q.6 hours, Pravachol 80 mg at bedtime, Trileptal 600 mg p.o. b.i.d., Prilosec 40 mg a day, multivitamin 1 a day, Remeron 45 mg at bedtime, Prinivil 40 mg a day, Keppra she is at 750 mg b.i.d., Trandate 200 mg b.i.d. She is on Lantus 12 units q.a.m., hydrocortisone 50 mg IV q.12. I did start her back on the D5 just because her sugars were dipping down yesterday so I may cut that down to 45 today. Catapres 0.2 mg b.i.d., Norvasc 10 mg b.i.d. We have her on sliding scale, low end. cc: Brent Blum MD
[2017-02-22] MEDS: NS 1,000 ML IV SCH (11:47)
[2017-02-22] MEDS: D5 NS 1,000 ML IV SCH (12:18)
--- NOTE | 2017-02-22 14:15 | CONSULTATION ---
DATE OF CONSULTATION: 02/21/2017 REQUESTING PHYSICIAN: The patient is seen in consultation at the request of Dr. Blum for evaluation of seizures. 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 She has had a flurry of seizure-like events during this admission most recently overnight. She was taking Keppra 750 mg p.o. b.i.d., and then oxcarbazepine 600 mg p.o. b.i.d. was added at the last admission. Since the seizures this admission, her Keppra has been increased to 1 g b.i.d. Her blood glucoses and seizures have been difficult to control. To recap her events: Event 1: Shaking of all her extremities at the same time. Maintains consciousness. No tongue biting. No bowel or bladder incontinence. Occurs only when her blood sugars are severely elevated. She says herself that she does not believe these are seizures. Event 2: Her family tells her that she falls and has shaking all over with bowel and bladder incontinence. She has bitten tongue with these. She does not recall these events. These occur when her blood sugars are quite low, like around 25 for instance. Event 3: She smells turnip greens. This is followed by a sense that something is coming on, such as shaking and then loses consciousness. Reports to her have been that she has shaking all over with urinary incontinence, but not bowel incontinence. She may have bitten her tongue with these, though she is not sure. These have occurred more recently since her reported stroke last year. She reports having had 2 of these total. Review of nursing notes: 02/16/2017 at 1905: jerking of the head and bilateral upper extremities. The patient was talking and answering during the shaking. More recent nursing notes from overnight: state that the seizure activity lasted 3 minutes. Ativan was given. The patient had stopped seizing, but a few minutes later, seizure-like jerking movements noted again with thrusting tongue movements. Shortly thereafter, another nurse entry note said seizure activity more prominent and more aggressive than the last two, more Ativan given. Five minutes later, seizure activity continued and reports the patient has been seizing 10 minutes now. The blood glucose was in the 400s and phenobarbital and more Ativan were given. The patient opened her eyes, but was very drowsy after the event. 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 History of vancomycin-resistant enterococci UTI, corneal transplant and esophageal dilatation, AV fistula for hemodialysis. SOCIAL HISTORY: Denies tobacco, alcohol or illicit drug use. She lives with her sister. FAMILY HISTORY: Hypertension, diabetes and stroke. No history of seizures. ALLERGIES: No known drug allergies. CURRENT MEDICATIONS: Reviewed. Of note, from a seizure standpoint, Keppra 750 mg p.o. b.i.d. has been increased to 1 g b.i.d. this admission. Oxcarbazepine 600 mg p.o. b.i.d. REVIEW OF SYSTEMS: A balance of 12 was conducted and is otherwise negative except that detailed in the HPI and the following: Nausea with some vomiting. PHYSICAL EXAMINATION: Vital Signs: She is afebrile. Blood pressure 164/99, pulse 93, she is saturating 100% on room air. General: She is supine in bed, getting hemodialysis. She is ill appearing. She is in no acute distress. She is cooperative. She is sluggish again with a soft voice. She is more sleepy than when I have seen her in the past. HEENT: Anicteric, no erythema mucous membranes are dry. Neck: Supple. Abdomen: Soft, nontender. Nondistended. Extremities: Without edema or cyanosis. Neurological: Mental status: Awake, she is sleepy and unable to get her to answer orientation questions. Her attention and concentration are reduced. 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 3 mm OU, briskly reactive. Extraocular muscles are intact horizontally. Face is symmetrical with equal activation. Hearing is grossly intact. Palate elevates symmetrically. Tongue protrudes midline. Motor examination, normal bulk and tone. No abnormal movements. She does not appear to have an asymmetric motor exam. Reflexes are symmetric and reduced throughout. Coordination and gait were not tested. PERTINENT DIAGNOSTICS: Head CT early this morning was personally reviewed. It was negative for acute findings. LABORATORY STUDIES: White count 9.9, hemoglobin 11.6, hematocrit 36.5, platelets 203,000. Sodium 140. It was [address] Potassium 4.1, BUN 44, creatinine 7.5, glucose has ranged from 865 on admission to 650 to 107 today. Phosphorus 2.6. Magnesium 2.1. Calcium 8.9. Also note multiple head CTs dating back to 2013 note the العراقي matter heterotopia in the right parietal region periventricularly. ASSESSMENT AND PLAN: This is a 36-year-old, left-handed female with multiple medical issues including end-stage renal disease, on hemodialysis, difficult to control diabetes with repeated admissions for diabetic ketoacidosis and [id number] seizures in light of this. Again, she has 3 distinct types of seizure like events which are detailed above, though type 2 and 3 may be the same. 1. Seizures. Closely related to pt's labile blood sugars. Currently poorly controlled but would expect her seizure control to improve once blood sugar control is achieved. Additionally, she has associated nausea/vomiting and cannot keep her antiepileptics (AEDs) down during these times, which is important to note because when this is the cause, there should be no need for AED adjustment. Notably, oxcarbazepine was added last admission, but there's really been no significant change in her seizure status and that's probably because her seizures are provoked by the labile blood sugars. It should be noted that the type 1 event that I have described above does not seem like it is an actual epileptic seizure based on the fact that she has shaking bilaterally with maintained consciousness per her report. We need to be sure that we are not treating this type of event. This type of event may have been documented on 02/16 at 1905 because the nurse said she had jerking of the head and upper extremities while talking and answering. With regards to seizure management, unfortunately, this will continue to be an issue in light of the difficult to control blood glucose levels. Because she is on hemodialysis though, I recommend reducing the keppra back to 750mg bid and instead adding a keppra 250mg dose after each hemodialysis session. Lets continue the oxcarbazepine 600 mg b.i.d. 2. Nausea and vomiting, propensity for ketoacidosis. Currently improving. Treatment per primary team. 3. ESRD on hemodialysis. Continue HD per primary team. Thank you for this consultation. We will follow. -4 cc: Melly Baltazar MD MTDD
--- NOTE | 2017-02-22 17:00 | PROGRESS NOTE ---
DATE: 02/22/2017 SUBJECTIVE: The patient is awake and alert. She is feeling better. She says she may have had a seizure overnight. In looking at the chart, there was documentation from the nurse of seizure- like activity once and then shortly thereafter she was confused and that was documented. OBJECTIVE: Vital Signs: She is afebrile. Blood pressure 159/90, pulse 96, respirations 16. HEENT: Normocephalic, atraumatic. Sclerae are anicteric. Dry mucous membranes. Neck: Supple. Skin: Warm and intact and dry. Neurologic Exam: Mental status: She is awake and reasonably alert, although still sluggish. She arouses more when she sits up and her vital signs are being checked. She is oriented with the exception of the president which she said was Osmin Alarcon and today's date which she thought was the . Language is intact. Cranial nerves: Pupils are equal, round, and reactive. Conjugate gaze. Ocular movements are intact. Face is symmetrical with equal activation. Motor exam: No asymmetry noted on today's exam. No incoordination noted. LABS: Were reviewed. Her blood glucoses have ranged from 95 to 236 recently. ASSESSMENT AND PLAN: This is a 36-year-old, left-handed female with multiple medical issues and repeated admissions for diabetic ketoacidosis and seizures. Seizures. Closely related to patient's labile blood sugars. Currently not well controlled but again, would expect her seizure control to improve as her blood sugar control is improved. Also she has these periods during these times where she has nausea and vomiting and unable to keep her medications down which certainly is contributing to her increased flurry of seizures. Continue oxcarbazepine 600 mg b.i.d. Continue Keppra 750 mg b.i.d. and add Keppra 250 mg dose x1 after each hemodialysis session. Again, we need to be sure that all events were are treating as seizures are actually seizures; she has one type of event which is described in my prior two consult notes, that does not sound like seizure due to the bilateral shaking with preserved consciousness. More detailed documentation of events by nursing staff will be helpful here. Thanks again for allowing me to follow. cc: MD GARY Sung
[2017-02-22] MEDS: PRAVACHOL PO SCH (23:05)
[2017-02-22] MEDS: REMERON PO SCH (23:06)
[2017-02-23] MEDS: CARAFATE LIQUID PO SCH ×6 (00:13→20:20)
[2017-02-23] MEDS: HUMULIN R SUBQ SCH ×6 (00:23→20:21)
[2017-02-23] MEDS: NS 1,000 ML IV SCH ×2 (00:25→16:19)
[2017-02-23] MEDS: SOLU-CORTEF IV SCH ×2 (00:25→13:14)
[2017-02-23] MEDS: PRILOSEC PO SCH (06:02)
[2017-02-23 06:40] LABS: ALBUMIN 3.7 g/dL (3.5-5.0); CALCIUM 8.6 mg/dL (8.8-10.2); POTASSIUM 3.7 mmol/L (3.5-5.1)
[2017-02-23] MEDS ORDERED: NS 2,000 ML MISC PRN (07:10)
[2017-02-23] MEDS ORDERED: HEPARIN IV PRN (07:10)
[2017-02-23] MEDS ORDERED: TIGHT: 0.2 ML/HR MISC PRN (07:10)
[2017-02-23] MEDS: NORVASC PO SCH ×2 (08:03→20:21)
[2017-02-23] MEDS: CATAPRES PO SCH ×2 (08:03→20:21)
[2017-02-23] MEDS: KEPPRA PO SCH ×3 (08:03→20:21)
[2017-02-23] MEDS: TRANDATE PO SCH ×2 (08:03→20:21)
[2017-02-23] MEDS: PRINIVIL PO SCH (08:03)
[2017-02-23] MEDS: TRILEPTAL PO SCH ×2 (08:03→20:21)
[2017-02-23] MEDS: THERA M PLUS PO SCH (08:03)
[2017-02-23] MEDS: LANTUS SUBQ SCH (08:04)
[2017-02-23] MEDS: D5 NS 1,000 ML IV SCH (08:11)
[2017-02-23] MEDS ORDERED: KEPPRA PO SCH (13:00)
[2017-02-23] MEDS: EPOGEN SUBQ SCH (13:13)
--- NOTE | 2017-02-23 13:46 | PROGRESS NOTE ---
DATE: 02/23/2017 SUBJECTIVE: The patient is feeling about the same today. She slept well. She has not had any further seizures. She is currently on hemodialysis. OBJECTIVE: Vital Signs: Afebrile, blood pressure 168/95, pulse 96, respirations 12, 95% on room air. General: She is on hemodialysis currently. She is supine in bed, in no acute distress. HEENT: Normocephalic, atraumatic. Sclerae are anicteric. Dry mucous membranes. Neck: Supple. Neurologic Exam: Mental status: She is asleep. Resting comfortably initially but arouses to soft voice and regards easily. She is a little less sluggish currently than she typically is. She is oriented with the exception of the date. Language is intact. Cranial nerves: PERRL. Gaze is conjugate. Ocular movements are intact. Face is symmetrical with equal activation with smile and eyebrow lift. Motor exam: She is moving all of her extremities symmetrically. There is no asymmetry. No incoordination noted. Gait was not tested as she is on hemodialysis. DIAGNOSTICS: Sodium 142, potassium 3.7, BUN 34, creatinine 6.5, glucose 111, calcium 8.6, phosphorus 1.6. ASSESSMENT AND PLAN: A 36-year-old, left-handed female with multiple medical issues and repeated admissions for diabetic ketoacidosis and closely related seizures. 1. Seizures, closely related to patient's labile blood sugars. Again, I would expect her seizure control to improve as the blood sugar control is also improved. The nausea and vomiting and being unable to keep medications down during those times would also be contributing to her seizures. Continue oxcarbazepine 600 mg b.i.d. Continue Keppra 750 mg b.i.d. and the supplemental Keppra 250 mg x1 dose on Tuesday, Tuesday, Tuesday after her hemodialysis sessions. cc: Melly Baltazar MD MTDD
--- NOTE | 2017-02-23 13:56 | PROGRESS NOTE ---
DATE: 02/23/2017 SUBJECTIVE: Ms. Chaparro is resting quietly in bed. She has no complaints. She remains lethargic. She has no increased work of breathing. OBJECTIVE: Her most recent vital signs, temperature 97.8 degrees, blood pressure 168/101, heart rate 94, respirations 18. She is on room air. Her last recorded saturation is 98%. She has had 478 in. She has had 0 recorded out. LABS: Sodium of 142, potassium 3.7, chloride 102, CO2 22. BUN 34, creatinine 6.5, glucose 111, anion gap 18, calcium 8.6, phosphorus 1.6. Albumin 3.7. Previous hemoglobin 11.6 on the . PHYSICAL EXAMINATION: General: This is a 36-year-old female. She is resting quietly in bed. She is in no acute distress. Skin: Warm and dry. HEENT: Normocephalic, atraumatic. Conjunctiva is pale. She has LUDWIG. Mucous membranes are dry. Neck: Supple. Trachea midline. No JVD. Cardiovascular: Regular rate and rhythm. Soft systolic murmur. No gallop. Lungs: Clear to auscultation anteriorly. Equal excursion on room air. Abdomen: Soft, nontender. Positive bowel sounds. Extremities: Have no edema. No clubbing or cyanosis. Genitourinary: Not inspected. Minimal void with dialysis assist. Integumentary: Skin is warm and dry. No rashes or lesions evident. Neurological: As above. ASSESSMENT AND PLAN: 1. End-stage renal disease. Patient is due for her routine dialysis treatment today. We will place her on a 3 K bath. She is to dialyze for 3.5 hours. We will attempt to pull her to her dry weight. 2. Electrolytes and acid-base balance. These remain stable with correction on dialysis. 3. Anemia. This remains stable with no indications for intervention. 4. Diabetic ketoacidosis. Patient continues to be monitored on sliding scale per primary care. 5. Seizure activity. No recent seizure activity in the last 24 hours. I would to thank you for allowing us to follow with this patient. Seen, data reviewed, discussed with Gerri Fitzgerald on 02/23/17. I agree with the above assessment and plan of care. rg Dictated by MANNY Hatch for Hardy Kay MD cc: MANNY Hatch MD [facility]
--- NOTE | 2017-02-23 17:05 | PROGRESS NOTE ---
DATE: 02/23/2017 SUBJECTIVE: Today Ms. Chaparro refers to be doing a little okay, but she is extremely drowsy. Has not had any seizures. She also had dialysis earlier today according to her. OBJECTIVE: Vital Signs: Her blood pressure is 168/85, pulse 96, respiration is 12, temperature is 98.4 degrees. General exam: Ms. Chaparro is a 36-year-old female. She is in bed. She is not in any distress. HEENT: Mucosa is pink and moist. Anicteric. Acyanotic. Neck: Supple. Chest: Good air entry bilaterally. A few bibasilar crepitations. There is a dialysis tunneled catheter in the right upper chest wall. Extremities: No pedal edema. 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 Follows basic commands. LABORATORY DATA: No CBC for today. Chemistry: Sodium is 142, potassium is 3.7, chloride is 102, bicarb is 22. Glucose is 111. So far, the glucose checks have also been reasonable. CURRENT MEDICATIONS: Include: 1. Amlodipine 10 mg b.i.d. 2. Clonidine 0.5 b.i.d. 3. Epoetin. 4. 5. Glargine 12 units subcutaneous every morning. 6. Sliding scale insulin. 7. Albuterol. 8. Keppra 250. 9. Lisinopril 40 mg daily. 10. Ativan 1 mg p.r.n. 11. Trileptal 600 b.i.d. 12. Pravastatin 80 mg at bedtime. 13. Carafate 1 g p.o. q.6h. ASSESSMENT: 1. End-stage renal disease. Patient continues to have hemodialysis. 2. Nausea and vomiting. Improved. 3. History of seizures likely related to her metabolic derangement. Patient is currently on antiseizure medications, is being followed up by Dr. Baltazar. 4. Diabetes mellitus. Controlled. 5. Hypertension. cc: Cesar Berger MD
[2017-02-23] MEDS: PRAVACHOL PO SCH (20:20)
[2017-02-23] MEDS: REMERON PO SCH (20:21)
[2017-02-24] MEDS: SOLU-CORTEF IV SCH (00:08)
[2017-02-24] MEDS: HUMULIN R SUBQ SCH ×6 (00:08→21:13)
[2017-02-24] MEDS: CARAFATE LIQUID PO SCH ×5 (03:13→21:23)
[2017-02-24] MEDS: NS 1,000 ML IV SCH ×2 (04:18→06:33)
[2017-02-24 06:08] LABS: ALBUMIN 3.7 g/dL (3.5-5.0); CALCIUM 8.6 mg/dL (8.8-10.2); POTASSIUM 4.2 mmol/L (3.5-5.1)
[2017-02-24] MEDS: PRILOSEC PO SCH (06:23)
[2017-02-24] MEDS: D5 NS 1,000 ML IV SCH (06:32)
[2017-02-24] MEDS: PRINIVIL PO SCH (08:12)
[2017-02-24] MEDS: NORVASC PO SCH ×2 (08:12→21:12)
[2017-02-24] MEDS: TRANDATE PO SCH ×2 (08:12→21:12)
[2017-02-24] MEDS: PATIENT'S OWN MED PO SCH (08:12)
[2017-02-24] MEDS: THERA M PLUS PO SCH (08:12)
[2017-02-24] MEDS: TRILEPTAL PO SCH ×2 (08:12→21:12)
[2017-02-24] MEDS: KEPPRA PO SCH ×2 (08:12→21:12)
[2017-02-24] MEDS: CATAPRES PO SCH ×2 (08:13→21:12)
[2017-02-24] MEDS: LANTUS SUBQ SCH (08:15)
--- NOTE | 2017-02-24 10:27 | PROGRESS NOTE ---
DATE: 02/24/2017 TIME SEEN: 0725 hours. SUBJECTIVE: Ms. Chaparro is resting quietly in bed. She states that she has no complaints. She remains sleepy, but she appears more awake today and has made eye contact. OBJECTIVE: Temperature 98.3 degrees, blood pressure 127/83, heart rate 95, respirations 18. She is on room air. Last recorded saturation 99%. She has had 840 in; she has had 3800 out. LABS: Sodium 140, potassium 4.2, chloride 100, CO2 24, BUN 28, creatinine 5.4, glucose 145, anion gap 16. Calcium 8.6, phosphorus 1.3, albumin 3.7. Previous hemoglobin 11.6 on the twenty-fifth. PHYSICAL EXAMINATION: General: This is a 36-year-old female. She is resting quietly in bed. She is in no acute distress. She does appear chronically ill. Skin: Warm and dry. HEENT: Normocephalic, atraumatic. Conjunctivae pale. She has LUDWIG. Mucous membranes are dry. Neck: Supple. Trachea midline. No JVD. Cardiovascular: Regular rate and rhythm. She has a soft systolic murmur. No gallop appreciated. Lungs: Clear to auscultation anterior. Equal excursion on room air. Abdomen: Soft, nontender. Positive bowel sounds. Extremities: Have no edema. No clubbing or cyanosis. Genitourinary: Not inspected. Minimal void with dialysis assist. Integumentary: Skin is warm and dry without rashes or lesions. Neurological: As mentioned above. ASSESSMENT AND PLAN: 1. End-stage renal disease. Patient is due for her routine dialysis treatment in the morning, otherwise no indications today. 2. Electrolytes, acid-base balance and anemia. These all remain stable. The patient has hypophosphatemia; more likely this is related to her elevated glucose and her ketoacidosis history. If it remains greater than 1, we will not provide replacement at this time. 3. Diabetic ketoacidosis followed by the primary care team. 4. Seizure activity. No further seizure activities in the last 48 hours. Patient continues on Keppra. I would like to thank you for allowing us to follow with this patient. Seen, data reviewed, discussed with Gerri Fitzgerald on 02/24/17. I agree with the above assessment and plan of care. rg Dictated by MANNY Hatch for Hardy Kay MD cc: MANNY Hatch MD [facility]
--- NOTE | 2017-02-24 14:34 | PROGRESS NOTE ---
DATE: 02/24/2017 SUBJECTIVE: Ms. Chaparro has not had seizure in recent hours. She came back to the hospital after apparent seizures associated with elevated blood sugar. Her home seizure medication regimen should be oxcarbazepine 600 mg b.i.d. and levetiracetam 750 mg b.i.d. However, she told me that she has been sleepy at home and she believes that may be due to her seizure medicines and she told me she takes the levetiracetam 3 tablets b.i.d. We phoned her pharmacy and confirmed the tablets dispensed were 750 mg. If she is taking 3 of those b.i.d., she certainly may have been drowsy. She is receiving the prescribed dose here. We need to confirm her dose prior to discharge. No other suggestion right now. If she is drowsy with her seizure medicine regimen taken as prescribed, we will need to consider other options. Again, I remain optimistic that seizure control will be improved if her blood sugar is stable. Thanks for allowing me to follow Ms. Chaparro. cc: MD GARY Flores III
--- NOTE | 2017-02-24 17:34 | PROGRESS NOTE ---
DATE: 02/24/2017 SUBJECTIVE: Today Ms. Chaparro referred to be doing fine. She was actually getting bathed by the nursing staff. Denies any complaints. OBJECTIVE: Vital signs: Blood pressure is 157/90, pulse of 95, respiration is 16, temperature is 98 degrees. General: Ms. Chaparro is a 36-year-old female. She is in bed, in no distress. Chest: Clear. Cardiovascular: Regular rate and rhythm. Abdomen: Soft. Extremities: No pedal edema. 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 LABORATORY DATA: The chemistry has been reviewed, consistent with endstage renal disease. Glucose checks have been reviewed. Recent is 221. ASSESSMENT: 1. End-stage renal disease. Continue with hemodialysis. 2. History of seizures, related to metabolic derangement (glucose abnormality with hyperglycemia and hypoglycemia). 3. Diabetes mellitus. 4. Hypertension. PLAN: So today I will discontinue all of the IV fluids and IV dextrose that the patient is getting. Glucose levels are acceptable. We will continue on her regimen today and see if we can tweak it for tomorrow. We will plan to discharge Ms. Chaparro soon, within a day or two once we get her glucose better controlled. cc: Cesar Berger MD
[2017-02-24] MEDS: REMERON PO SCH (21:12)
[2017-02-24] MEDS: PRAVACHOL PO SCH (21:13)
[2017-02-24] MEDS: MORPHINE IV PRN (22:41)
[2017-02-25] MEDS: HUMULIN R SUBQ SCH ×9 (00:59→22:47)
[2017-02-25] MEDS: CARAFATE LIQUID PO SCH ×4 (04:26→21:14)
[2017-02-25 06:02] LABS: ALBUMIN 3.6 g/dL (3.5-5.0); CALCIUM 8.5 mg/dL (8.8-10.2); POTASSIUM 3.2 mmol/L (3.5-5.1)
[2017-02-25] MEDS ORDERED: D50W SYRINGE ONE (06:08)
[2017-02-25] MEDS: ATIVAN IV PRN (06:10)
[2017-02-25] MEDS ORDERED: NS 2,000 ML MISC PRN (07:01)
[2017-02-25] MEDS ORDERED: HEPARIN IV PRN (07:01)
[2017-02-25] MEDS ORDERED: TIGHT: 0.2 ML/HR MISC PRN (07:01)
[2017-02-25] MEDS: PRILOSEC PO SCH (08:29)
[2017-02-25] MEDS: KEPPRA PO SCH ×3 (08:30→21:15)
[2017-02-25] MEDS: LANTUS SUBQ SCH ×2 (08:30→10:05)
[2017-02-25] MEDS: THERA M PLUS PO SCH (08:30)
[2017-02-25] MEDS: TRILEPTAL PO SCH ×2 (08:31→21:15)
[2017-02-25] MEDS: TRANDATE PO SCH ×2 (08:31→21:15)
[2017-02-25] MEDS ORDERED: HEPARIN ONE (08:32)
[2017-02-25] MEDS ORDERED: NS 2,000 ML ONE (08:32)
[2017-02-25] MEDS: CATAPRES PO SCH ×2 (08:37→21:15)
[2017-02-25] MEDS: PRINIVIL PO SCH (08:37)
[2017-02-25] MEDS: NORVASC PO SCH ×2 (08:37→21:15)
[2017-02-25] MEDS: EPOGEN SUBQ SCH (08:41)
--- NOTE | 2017-02-25 10:49 | PROGRESS NOTE ---
DATE: 02/25/2017 SUBJECTIVE: She is feeling better. She is eating some corn flakes. No nausea, no abdominal pain, no shortness of breath. OBJECTIVE: Vital Signs: Blood pressure 154/83, heart rate 95, respirations 16, afebrile. Intake 1.7 L; output zero. General: No acute distress. Skin: Warm and dry. Eyes: Conjunctivae are pink. Neck: Neck veins are not visible. Heart: Regular with a gallop. Lungs: Have equal breath sounds. No crackles. Abdomen: Soft, nontender. Bowel sounds present. Extremities: Have no edema, clubbing, or cyanosis. LABORATORY DATA: Sodium 143, potassium 3.2, chloride 102, bicarbonate 24, BUN 37, creatinine 6.4, hemoglobin 11.6. IMPRESSION: 1. End-stage kidney disease. She will have her routine hemodialysis today. 2. Electrolytes/acid base/anemia, all in target. 3. Hypertension, acceptable. 4. Nausea and vomiting, improved. 5. Diabetic ketoacidosis, resolved. cc: Hardy Kay MD
--- NOTE | 2017-02-25 11:15 | PROGRESS NOTE ---
DATE: 02/25/2017 PATIENT LOCATION: She is in [facility] bed 16. Ms. Chaparro is undergoing dialysis. She is awake and alert. She reports no recent seizure episodes. She is tolerating her current seizure medication regimen. I reviewed the possible discrepancy between the prescribed levetiracetam and what she has been taking at home and I am not able to resolve that based on her report and her current recollection. We can try to get that straightened out at discharge. No new suggestion from a neurologic standpoint today. cc: Dee Ennis III, MD MTDD
[2017-02-25] MEDS ORDERED: D50W SYRINGE IV ONE (15:55)
--- NOTE | 2017-02-25 16:05 | PROGRESS NOTE ---
DATE: 02/25/2017 Today Ms. Chaparro refers to be doing a lot better. Initially she was very outspoken but then later on, she became very quiet and said she just wanted to go home. My understanding though is that Ms. Chaparro had an episode of seizure during dialysis and that early this morning she also had another episode. When I asked the nurse about what type of seizure they just said she stared but no tonic clonic movements. I was also told that early this morning when she had the 1st episode her glucose was I understand in the 50s but during dialysis her glucose was in the 110s. OBJECTIVELY: Vital signs: Blood pressure is 154/83, pulse of 95, respirations 15, temperature 98.0 degrees. General: Ms. Chaparro is a 36-year-old female. She is in bed, no distress. HEENT: Mucosa is pink and moist. Anicteric. Acyanotic. Neck: Supple. Chest: Good air entry bilateral. No crepitations. 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 He is conversational. Follows commands. Voices her intention of wanting to go home. LABORATORY DATA: Chemistry is reviewed. It is consistent with end-stage renal disease. ASSESSMENT: 1. End-stage renal disease on hemodialysis. 2. History of seizures related to a metabolic derangement (glucose abnormalities). 3. Diabetes mellitus. 4. Hypertension. So in general I think Ms. Chaparro seems to be doing a little better. Mentation is a whole lot better than before. She is still on her antiseizure medications. I think her seizures are related to her diabetes control. Her numbers have been all over the map. I went up on her insulin to on her glargine to 17 and add 5 units of insulin regular with meals and cover the sliding scale. Patient had a total of 32 units of regular insulin on the sliding scale yesterday on top of her glargine. With the new changes we hope her glucose maintains steady. We encourage her to eat to prevent any hypoglycemic episodes. If the glucose maintains, we might be able to discharge her tomorrow. cc: Cesar Berger MD
[2017-02-25] MEDS: PRAVACHOL PO SCH (21:15)
[2017-02-25] MEDS: REMERON PO SCH (21:15)
[2017-02-25] MEDS: MORPHINE IV PRN (21:23)
[2017-02-26] MEDS: HUMULIN R SUBQ SCH ×3 (02:20→09:41)
[2017-02-26] MEDS: CARAFATE LIQUID PO SCH ×2 (03:48→09:40)
[2017-02-26] MEDS: PRILOSEC PO SCH (06:12)
[2017-02-26 06:34] LABS: ALBUMIN 3.3 g/dL (3.5-5.0); CALCIUM 8.8 mg/dL (8.8-10.2); POTASSIUM 3.7 mmol/L (3.5-5.1)
[2017-02-26] MEDS: PRINIVIL PO SCH (09:40)
[2017-02-26] MEDS: TRANDATE PO SCH (09:40)
[2017-02-26] MEDS: CATAPRES PO SCH (09:40)
[2017-02-26] MEDS: NORVASC PO SCH (09:40)
[2017-02-26] MEDS: TRILEPTAL PO SCH (09:40)
[2017-02-26] MEDS: THERA M PLUS PO SCH (09:40)
[2017-02-26] MEDS: KEPPRA PO SCH (09:41)
[2017-02-26] MEDS: LANTUS SUBQ SCH (09:41)
[2017-02-26 11:36] VITALS: BP 159/91
[2017-02-26] MEDS: PATIENT'S OWN MED PO SCH (12:32)
--- NOTE | 2017-02-27 05:15 | DISCHARGE SUMMARY ---
ADMISSION DATE: 02/16/2017 DISCHARGE DATE: 02/26/2017 LENGTH OF STAY: Ten days. DISPOSITION: Home. FOLLOWUP: 1. Dr. Kay. 2. Dr. Ennis. CONSULTATION DURING THIS ADMISSION: 1. Neurology was consulted. Patient was seen by Dr. Baltazar and followed up by Dr. Ennis. 2. Nephrology was consulted. Patient was seen by Dr. Kay. IMAGING STUDIES OF SIGNIFICANCE: Abdominal x-ray was done on presentation. It showed no evidence of acute disease. A CT scan of the brain was also done. It shows no hemorrhage. INVASIVE PROCEDURES DONE DURING THIS ADMISSION: None. ADMISSION DIAGNOSES: 1. Diabetes mellitus with hyperglycemia, suspected diabetic ketoacidosis. 2. Nausea and vomiting. 3. End-stage renal disease. 4. Hypertension. DIAGNOSES AT THE TIME OF DISCHARGE: 1. Endstage renal disease, on hemodialysis. 2. Seizures, likely related to metabolic derangement (hyperglycemia or hypoglycemia). 3. Diabetes mellitus, insulin dependent. 4. Hypertension. 5. Noncompliance. DISCHARGE MEDICATIONS: 1. Biotin 1 mg every day. 2. Epogen as per precision lens grinder. 3. Carafate 1 g p.o. q.6. 4. Lactulose p.r.n. 5. Pantoprazole 40 mg daily. 6. Furosemide 40 mg b.i.d. 7. Pravastatin 80 mg at bedtime. 8. Metoclopramide 5 mg with meals. 9. Amlodipine 10 mg daily. 10. Clonidine 0.2 b.i.d. 11. Lisinopril 40 mg daily. 12. Oxcarbazepine 600 b.i.d. 13. Insulin glargine 17 units. 14. Levetiracetam 250 on Tuesday, Tuesday, and Tuesday and 750 b.i.d. 15. Insulin sliding scale, NovoLog; use 1 unit if glucose is between 200-250; use 2 units if glucose is between 250-270; use 3 units if glucose is between 270-300; use 4 units if glucose is more than 300. Do not use any NovoLog if glucose is less than 200. RECOMMENDATIONS: The patient is advised to stopped driving at least for 6 months because of the history of seizures, until she gets to see Dr. Ennis on outpatient basis and this can be changed. PRESENTING COMPLAINT: Abdominal pain, nausea, and vomiting. HISTORY OF PRESENTING COMPLAINT: Ms. Chaparro is a 36-year-old, female, well known to our service. History of end-stage renal disease on hemodialysis Tuesday, Tuesday, Tuesday, hypertension, and diabetes very poorly controlled. The patient came to the emergency department because of nausea and vomiting with a suspicion of possible DKA. Was admitted for further medical care. HOSPITAL COURSE: During the hospital stay, the patient did pretty well. Nausea and vomiting got improved. Glucose control got better. However, she did develop an episode of seizures which the patient was evaluated by both neurologists in the hospital. There were some changes to her medications. Eventually, over a period of 24-48 hours, patient remained seizure free. The decision was made to discharge her. I had a long conversation with the sister on the phone who voiced out her concern about the patient's noncompliance issues. Patient is going to be discharged. She is supposed to stop driving because of the seizure issues until she gets to see Dr. Ennis on outpatient basis. She is also supposed to follow up with Dr. Kay for her routine dialysis. Some changes have been done to her insulin regimen. She will be on 17 units of glargine and the sliding scale which has been outlined above. We chose to do a higher level of glucose coverage because she is very sensitive to insulin and she becomes hypoglycemic very easily. At the time of discharge, Ms. Chaparro is medically stable. Her vitals have been reviewed, unremarkable. Her last glucose check documented is 108. She is going to be discharged in a very stable condition. Disposition is home. ACTIVITY: As tolerated. FOLLOWUP: Outlined above. Time spent for discharge is 35 minutes. cc: Cesar Berger MD
== END 2017-02-26 16:35 | disposition home or self-care (01) ==
LOC: ED 21:53 → SUATTDRO 02-16 02:27 → EDIPHOLD 02-16 02:27 → ICU 02-16 15:50 → 3N 02-17 10:10 → 3S 02-17 18:29
PROVIDERS: ATTEND Internal Medicine

== ENCOUNTER 2018-12-26 12:41 | Inpatient (IN) ==
[2018-12-26] MEDS ORDERED: NS 1,000 ML IV ONE ×2 (13:16→14:27)
[2018-12-26] MEDS ORDERED: REGLAN IV ONE (13:18)
[2018-12-26 13:45] LABS: BASO# 0.15 X1000 (0.0-0.2); BASO% 2.1 % (0.0-0.8); EOS# 0.06 X1000 (0.0-0.7); EOS% 0.9 % (0.0-10.0); HEMATOCRIT 35.7 % (37.0-47.0); HEMOGLOBIN 11.3 g/dL (12.0-16.0); IMM GRAN# 0.03 X1000 (0.0-0.04); IMM GRAN% 0.4 % (0.0-0.5); MCH 32.2 PG (27-31); MCHC 31.7 g/dL (33-37); MCV 101.7 FL (81-99); MONO# 0.51 X1000 (0.11-0.59); MONO% 7.3 % (1.7-9.3); MPV 10.8 FL (7.4-10.4); NEUT# 5.56 X1000 (1.4-6.5); NEUT% 79.3 % (42.2-75.2); PLT 250 X1000 (130-400); RBC 3.51 XMIL (4.2-5.4); RDW 15.9 % (11.5-14.5); WBC 7.01 X1000 (4.8-10.8)
[2018-12-26 14:25] LABS: ACETONE SERUM SMALL (NEGATIVE); AGAP 20; ALB/GLOB RATIO 1.1; ALBUMIN 4.1 g/dL (3.5-5.0); ALKALINE PHOSPHATASE 350 U/L (32-104); BUN 32 mg/dL (8-22); CALCIUM 8.2 mg/dL (8.8-10.2); CHLORIDE 93 mmol/L (98-107); COSMO 296; CREATININE 4.6 mg/dL (0.5-0.9); ESTIMATED GFR 13; GLUCOSE 478 mg/dL (70-104); GOT 34 U/L (10-30); GPT 36 U/L (10-36); POTASSIUM 5.6 mmol/L (3.5-5.1); SODIUM 134 mmol/L (136-145); TCO2 21 mmol/L (25-35); TOTAL BILIRUBIN 0.42 mg/dL (0.20-1.00); TOTAL PROTEIN 7.7 g/dL (6.3-8.3)
[2018-12-26] MEDS ORDERED: HUMULIN R IV ONE ×2 (14:26→19:00)
[2018-12-26 14:42] LABS: ALLEN TEST NO; BE -2.3 mmoll (-3.0-3.0); BLOOD TYPE ARTERIAL; METHB 0.6 % (0.0-1.5); O2(CT) 14.9 mL/dL (15.0-23.0); O2HB 90.6 % (95.0-99.0); PCO2(98.6) 38 mmHg (35-45); PO2(98.6) 58 mmHg (60-100); SAMPLE BLOOD; SAO2 92.9 % (95.0-100.0); THB 11.7 g/dL (11.5-17.4); pH(98.6) 7.38 (7.35-7.45)
[2018-12-26 14:43] LABS: MODALITY ROOM AIR
--- NOTE | 2018-12-26 15:46 | EKG Report ---
Test Performed on : 12/26/2018 1:16:47 PM Test Reason : ED. NO ORDER IN [place] Blood Pressure : / mmHG Vent. Rate : 100 BPM Atrial Rate : 100 BPM P-R Int : 156 ms QRS Dur : 084 ms QT Int : 414 ms P-R-T Axes : 068 000 039 degrees QTc Int : 534 ms Normal sinus rhythm. Prolonged QT Abnormal ECG When compared with ECG of 12-MAY-2018 16:12, Nonspecific T wave abnormality no longer evident in Inferior leads T wave amplitude has increased in Lateral leads Unconfirmed Result
[2018-12-26] MEDS ORDERED: MORPHINE IV ONE (16:41)
[2018-12-26] MEDS ORDERED: LABETALOL IV ONE (16:41)
[2018-12-26] MEDS ORDERED: ZOFRAN IV PRN (17:22)
[2018-12-26] MEDS ORDERED: LABETALOL 200 MG in NS 160 ML IV SCH (17:45)
--- NOTE | 2018-12-26 17:58 | PROVIDER DOCUMENTATION ---
This chart was entered by Mami Lobo Scribe, acting as scribe for Ricky Salomon MD. HPI-Abdominal Pain/GI Problem - General Chief Complaint: Nausea/Vomiting Stated Complaint: HYPERGLYCEMIA Time Seen by Provider: 12/26/18 13:06 Source: patient Allergies/Adverse Reactions: Patient Allergies Allergy/AdvReac Type Severity Reaction Status Date / Time No Known Allergies Allergy Verified 12/26/18 13:09 Home Medications: Home Medication List Medication Instructions Recorded Confirmed Last Taken Type Lactulose 30 ml PO DAILY PRN PRN #0 udc 12/21/16 02/16/17 02/15/17 Rx Zolpidem [Ambien] 10 mg PO HS PRN PRN #20 tablet 12/21/16 02/16/17 02/15/17 Rx Biotin 1 mg PO EVERY OTHER DAY #120 cap 01/26/18 Unknown Rx Clonazepam [Klonopin] 0.5 mg PO QHS #30 tab.rapdis 01/26/18 Unknown Rx Clonidine [Catapres] 0.2 mg PO DAILY #120 tab 01/26/18 Unknown Rx Epoetin Yasir [Epogen] 10,000 unit SUBQ MoWeFr@0900 vial 01/26/18 Unknown Rx Insulin Glargine [Lantus] 17 unit SUBQ QAM #1 insuln.pen 01/26/18 Unknown Rx LISINOpril [Prinivil] 40 mg PO DAILY #30 tab 01/26/18 Unknown Rx Labetalol [Trandate] 400 mg PO 0900,1500,2100 #240 tab 01/26/18 Unknown Rx Levetiracetam [Keppra] 250 mg PO MOWEFR@1300 #120 tab 01/26/18 Unknown Rx Levetiracetam [Keppra] 750 mg PO BID #60 tab 01/26/18 Unknown Rx Metoclopramide [Reglan] 5 mg PO AC + HS #0 tablet 01/26/18 Unknown Rx Mirtazapine [Remeron] 45 mg PO QHS #90 tab 01/26/18 Unknown Rx Multivitamins/Minerals [Centrum 1 ea PO DAILY #120 tab 01/26/18 Unknown Rx Tablet] Oxcarbazepine [Trileptal] 600 mg PO BID #60 tab 01/26/18 Unknown Rx PRAVAstatin [Pravachol] 80 mg PO QHS #120 tab 01/26/18 Unknown Rx Pantoprazole [Protonix] 40 mg PO DAILY #90 tab 01/26/18 Unknown Rx Phenytoin [Dilantin] 100 mg PO TID #90 cap 01/26/18 Unknown Rx Polyethylene Glycol 3350 [Miralax] 17 gm PO DAILY #10 powder, packet 01/26/18 Unknown Rx Tramadol HCl/Acetaminophen 1 ea PO Q6HR #60 tab 01/26/18 Unknown Rx [Tramadol-Acetaminophn 37.5-325] Amlodipine [Norvasc] 10 mg PO DAILY #120 tab 05/17/18 Unknown Rx - History of Present Illness-ABD Nature of Presenting Problems: Patient is a 38 year old female who presents to the ED via EMS for generalized abdominal pain with nausea, vomiting and diarrhea that started this morning. Patient reports history of gastroparesis. States she sees Dr. Briscoe for gastroparesis and he placed her on new medication for her gastroparesis but she stopped taking it. Denies chest pain and shortness of breath. Abdominal Pain Onset Location: reports: generalized abdomen Pain Radiation: reports: no radiation Quality of Pain: reports: aching Severity in ED: reports: mild Onset/Duration: reports: this morning Timing: reports: still present Activities at Onset: reports: light activity Modifying Factors: improves with: nothing Associated Symptoms: reports: diarrhea, nausea, vomiting Bruising or Bleeding Gums?: No Similar Symptoms Previously?: No Recently seen or treated by another doctor?: No Review of Systems - Adult - REVIEW OF SYSTEMS - ADULT Constitutional: reports: no symptoms reported. denies: chills, fever, fatique Eyes: reports: no symptoms reported Ears, Nose, Mouth & Throat: reports: no symptoms reported Cardiovascular: reports: no symptoms reported. denies: chest pain, heart murmur, irregular heart rate Respiratory: reports: no symptoms reported Gastrointestinal: reports: see HPI, abdominal pain, diarrhea, nausea, vomiting Genitourinary: reports: no symptoms reported Musculoskeletal: reports: no symptoms reported Integumentary: reports: no symptoms reported Neurological: reports: no symptoms reported Psychiatric: reports: no symptoms reported Endocrine: reports: no symptoms reported Hematologic/Lymphatic: reports: no symptoms reported Allergic/Immunologic: reports: no symptoms reported All Other Systems: Reviewed and Negative Past History - Adult - PAST MEDICAL HISTORY-ADULT Review of Records: reports: Nursing Assessment Review, Medications Reviewed, Social history reviewed & non-contributory. Major Childhood Illnesses: reports: denies history Cardiovascular: reports: CHF, HTN, hyperlipidemia, other (cardiomyopathy) Respiratory: reports: denies history Gastrointestinal: reports: GERD, other (gastroparesis, eroding esophagus) Obstetrical/Gynecological: reports: denies history Genitourinary: reports: dialysis, kidney disease Musculoskeletal: reports: denies history Neurological: reports: CVA, Seizures/Epilepsy Psychiatric: reports: anxiety Endocrine/Immune: reports: Diabetes Other Conditions: reports: cataract/glaucoma - PRIOR SURGERIES/PROCEDURES Surgical/Procedure History: reports: colonoscopy, indwelling device (dialysis access), other (cataract removal) - PRIOR HOSPITALIZATIONS Prior Hospitalizations: reports: for other non-related - IMMUNIZATION STATUS Childhood Immunizations: See Nurse Assessment Flu Vaccine: See Nurse Assessment - FAMILY HISTORY Family History: reviewed, not pertinent - SOCIAL HISTORY Smoking: cigarettes, greater than 1 pack/day Provider spent 3-5 mins advising pt. on dangers of tobacco.: Discussed manners to quit use, and f/u contacts for add'l counseling. Substance Use: denies Living Situation: family Physical Exam-General - PHYSICAL EXAM-ADULT Initial Vital Signs Reviewed: Yes - CONSTITUTIONAL General Appearance: alert, no apparent distress. negative: lethargic, slow to respond - EYES Eyes: PERRL/EOMI, pink conjunctivae. negative: pale conjunctivae - HEAD, EARS, NOSE, MOUTH & THROAT HENMT: moist mucous membranes, normal ENT inspection. negative: dental decay, hearing deficit - NECK Neck: non-tender, normal inspection. negative: limited range of motion, tender midline - RESPIRATORY Respiratory: chest non-tender, lungs clear, normal breath sounds. negative: crackles, rhonchi - CARDIOVASCULAR Cardiovascular: normal peripheral pulses, regular rate, rhythm. negative: ta chycardia, systolic murmur - GASTROINTESTINAL (ABDOMEN) Abdominal Exam: normal bowel sounds, non tender, soft. negative: guarding, rebound - MUSCULOSKELETAL Back Exam: normal inspection. negative: muscle spasm, vertebral tenderness Extremity: non-tender, normal inspection. negative: deformity, erythema, swelling - SKIN Integumentary: normal color, normal turgor, warm/dry. negative: cyanosis, ecchymosis, erythema, jaundice - NEUROLOGIC Neurologic: grossly normal. negative: aphasia, facial droop - PSYCHIATRIC Psych/Mental Status: normal mood/affect, oriented x 3. negative: paranoid, tearful Progress - PLAN OF CARE/RESULTS Progress/Plan/Lab Results: Vital Signs - 8 hr 12/26/18 13:03 Temperature 98.0 F Pulse Rate 101 H Respiratory Rate 28 H Blood Pressure 183/107 O2 Sat by Pulse Oximetry 99 Laboratory Results - last 24 hr 12/26/18 13:06 POC Glucose 451 H D Result Diagrams: 12/26/18 13:38 12/26/18 13:38 - EKG 1 Time of EKG reading by physician:: 13:16 EKG Read and Signed by:: Ricky Salomon EKG Interpretation (*Must complete 3 of following elements*): Abnormal Rate: 100 Rhythm: normal sinus rhythm AR Interval: normal Comments: prolonged QT Departure - Departure Date of Disposition Decision: 12/26/18 Time of Disposition Decision: 16:30 DIAGNOSIS: Gastroparesis Diabetic ketoacidosis Qualifiers: Diabetes mellitus type: type 1 Disposition: ADMITTED INPATIENT 09 Certified Medical Emergency: Emergent Condition: Good Referrals and Follow-Ups: Vicki Lee MD [Primary Care Provider] - - Critical Care Note This patient required my direct & personal management of CC.: No Attestation - Physician/ SARAI Attestation Patient care was provided by Advanced Practice Provider:: No The physician spent face to face time with patient:: Yes Advanced Practice Provider documentation review:: Supervising physician onsite and consulted in the evaluation and care of this patient. The physician did have a face to face encounter with the patient. This chart was documented by the indicated scribe, (Mami Lobo Scribe) and accurately reflects the services I performed and decisions made by me, Ricky Salomon MD, as attested by the provider's signature.
--- NOTE | 2018-12-26 18:47 | Diag Imaging Result Doc PS360 ---
EXAM: CHEST-PORTABLE HISTORY: dyspnea TECHNIQUE: Portable chest single view COMPARISON: 05/12/2018 FINDINGS: The lungs are well expanded. The heart is mildly enlarged. Mild vascular distention versus mild fibrosis. There are no infiltrates. No effusion identified. IMPRESSION: Mild cardiomegaly with mild pulmonary edema versus fibrosis Electronically signed by Brayan Wooten 12/26/2018 6:45 PM
--- NOTE | 2018-12-26 18:54 | Diag Imaging Result Doc PS360 ---
EXAM: ABDOMEN FLAT/UPRIGHT HISTORY: abdominal pain TECHNIQUE: Flat and upright, two views COMPARISON: None. FINDINGS: No free air beneath the diaphragm. There are surgical clips in the mid right abdomen consistent with cholecystectomy. No bowel obstruction. There are multiple pelvic phleboliths. No abnormal abdominal calcifications. The liver is mildly prominent. IMPRESSION: Mildly prominent liver. Electronically signed by Brayan Wooten 12/26/2018 6:51 PM
[2018-12-26] MEDS ORDERED: HUMULIN R 100 UNIT in NS 99 ML IV SCH (19:00)
[2018-12-26] MEDS ORDERED: POTASSIUM CHLORIDE 20% LIQUID PO PRN ×2 (19:22→19:30)
[2018-12-26] MEDS: REGLAN IV SCH (19:29)
[2018-12-26] MEDS ORDERED: POTASSIUM CHLORIDE 20 MEQ/SWI 20 MEQ/100 ML IVPB IV PRN (19:30)
[2018-12-26] MEDS ORDERED: SODIUM BICARBONATE 8.4% 100 MEQ in STERILE WATER INJ. 500 ML IV PRN (19:30)
[2018-12-26] MEDS ORDERED: POTASSIUM CHLORIDE 40 MEQ/SWI 40 MEQ/100 ML IVPB IV PRN (19:30)
[2018-12-26] MEDS ORDERED: POTASSIUM CHLORIDE 10% LIQUID PO PRN (19:30)
[2018-12-26] MEDS: KEPPRA 500 MG/NS 500 MG/100 ML IVPB IV SCH (19:31)
[2018-12-26] MEDS: PROTONIX IV SCH ×2 (19:32→23:09)
[2018-12-26 19:35] LABS: ALBUMIN 3.8 g/dL (3.5-5.0); CALCIUM 8.2 mg/dL (8.8-10.2); CREATININE 5.1 mg/dL (0.5-0.9); MAGNESIUM 2.7 mg/dL (1.5-2.7); PHOSPHORUS 0.5 mg/dL (2.7-4.5); POTASSIUM 3.9 mmol/L (3.5-5.1); TOTAL BILIRUBIN 0.28 mg/dL (0.20-1.00); TOTAL PROTEIN 7.7 g/dL (6.3-8.3)
[2018-12-26] MEDS ORDERED: SODIUM PHOSPHATE 20 MMOL in NS 250 ML IV ONE (20:45)
[2018-12-26] MEDS: D50W SYRINGE IV PRN (21:24)
[2018-12-26 23:45] LABS: ALBUMIN 3.7 g/dL (3.5-5.0); CALCIUM 7.6 mg/dL (8.8-10.2); PHOSPHORUS 1.7 mg/dL (2.7-4.5); POTASSIUM 4.1 mmol/L (3.5-5.1)
[2018-12-27] MEDS: D50W SYRINGE IV PRN ×2 (00:26→04:31)
[2018-12-27] MEDS ORDERED: NS 1,000 ML IV SCH (00:30)
[2018-12-27] MEDS: REGLAN IV SCH ×4 (02:23→19:50)
[2018-12-27 04:33] LABS: BASO# 0.12 X1000 (0.0-0.2); BASO% 1.9 % (0.0-0.8); EOS# 0.21 X1000 (0.0-0.7); EOS% 3.3 % (0.0-10.0); HEMATOCRIT 29.8 % (37.0-47.0); HEMOGLOBIN 9.6 g/dL (12.0-16.0); LYMPH# 1.41 X1000 (1.2-3.4); LYMPH% 22.4 % (20.5-51.1); MCH 31.9 PG (27-31); MCHC 32.2 g/dL (33-37); MONO# 0.83 X1000 (0.11-0.59); MONO% 13.2 % (1.7-9.3); MPV 10.5 FL (7.4-10.4); NEUT# 3.72 X1000 (1.4-6.5); NEUT% 59.2 % (42.2-75.2); PLT 214 X1000 (130-400); RBC 3.01 XMIL (4.2-5.4); RDW 15.8 % (11.5-14.5); WBC 6.29 X1000 (4.8-10.8)
[2018-12-27 04:40] LABS: ALLEN TEST YES; BE 2.1 mmoll (-3.0-3.0); BLOOD TYPE ARTERIAL; HCO3-(ACT) 26.5 mmoll (20.0-26.0); METHB 0.9 % (0.0-1.5); O2(CT) 14.1 mL/dL (15.0-23.0); O2HB 91.9 % (95.0-99.0); PCO2(98.6) 47 mmHg (35-45); PO2(98.6) 66 mmHg (60-100); SAMPLE BLOOD; SAO2 94.2 % (95.0-100.0); THB 10.9 g/dL (11.5-17.4); pH(98.6) 7.38 (7.35-7.45)
[2018-12-27 04:41] LABS: MODALITY ROOM AIR
[2018-12-27 04:41] LABS: ALBUMIN 3.6 g/dL (3.5-5.0); CALCIUM 7.5 mg/dL (8.8-10.2); PHOSPHORUS 2.7 mg/dL (2.7-4.5); POTASSIUM 3.8 mmol/L (3.5-5.1)
[2018-12-27 04:45] LABS: CREATININE 5.5 mg/dL (0.5-0.9)
[2018-12-27] MEDS: KEPPRA 500 MG/NS 500 MG/100 ML IVPB IV SCH (05:12)
--- NOTE | 2018-12-27 05:19 | HISTORY AND PHYSICAL ---
CHIEF COMPLAINT: Nausea/vomiting and high blood sugar. HISTORY OF PRESENT ILLNESS: This is a 38-year-old female with a history of diabetes mellitus type 1, chronic kidney disease stage 5D on MWF hemodialysis, as well as diastolic heart failure with an EF of 25% in January 2018. She presents to the emergency room complaining of 2 days of nausea and generalized abdominal pain. This morning she states that she started having severe abdominal pain with nausea, vomiting, and diarrhea. She feels that her gastroparesis is acting up. She does state that she has had very little of her medications over the last 48 hours due to the abdominal pain and nausea. She denies any black or bloody vomitus or stools, any fevers or chills. PAST MEDICAL HISTORY: 1. Chronic kidney disease, stage 5D, on MWF hemodialysis. 2. Diabetes mellitus, type 1. 3. Hypertension. 4. Seizure disorder. 5. Diastolic heart failure with EF of 25% in January 2018. 6. Chronic constipation. 7. Esophagitis and gastritis. 8. History of CVA. PAST SURGICAL HISTORY: 1. Corneal transplant. 2. AV fistula right arm. 3. Cholecystectomy. 4. J-tube placement. SOCIAL HISTORY: She lives with her mother. She denies alcohol, tobacco, or illicit drug use. ALLERGIES: No known drug allergies. HOME MEDICATIONS: A list will be obtained by the nursing staff. Once verified, we will review and restart as is appropriate. REVIEW OF SYSTEMS: Review of systems is discussed with patient with pertinent positives stated in the HPI. She denies any syncope, dizziness, chest pain, palpitations, any shortness of breath, cough, any fever or chills, night sweats, recent weight loss or weight gain, any black or bloody vomitus or stools, any hematuria, dysuria, frequency, or urgency. PHYSICAL EXAMINATION: GENERAL: This is a 38-year-old female, who is lying in the stretcher in the emergency room, tearful, but in no distress. VITAL SIGNS: Blood pressure is 197/110 with a heart rate of 100, respirations are ranging from 28 to 32 with O2 saturations of 99% to 100% on room air. HEENT: Head is normocephalic, atraumatic. Mucous membranes are dry. NECK: Supple with trachea midline. CARDIOVASCULAR: Regular rate and rhythm. She is tachycardic. S1 and S2 appreciated. EXTREMITIES: She has no lower extremity edema. Calves are nontender to palpation bilateral with peripheral pulses palpable x4 extremities. PULMONARY: Breath sounds are clear with no increased work of breathing noted. Chest rises and falls symmetric with respiration. Chest wall is nontender to palpation. GASTROINTESTINAL: Abdomen is soft, nontender, nondistended with bowel sounds in all 4 quadrants. NEUROLOGIC: She is alert and oriented. SKIN: Warm and dry. DIAGNOSTIC STUDIES: WBC is 7 with hemoglobin 11.3, hematocrit 35.7, platelets of 250,000. Sodium is 134, potassium 5.6, CO2 is 21 with an anion gap of 20, BUN 32, creatinine 4.6 with a glucose of 478. Dilantin level is 1 with acetone being small. EKG reveals sinus rhythm at a rate of 100 with a QTc of 534. ASSESSMENT AND PLAN: 1. Diabetic ketoacidosis. The patient will be admitted to the intensive care unit, placed on DKA protocol. She was given 2 L of saline in the emergency room. Due to her ejection fraction, we will give no further bolus. 2. Gastroparesis. Reglan 10 mg IV q.6 h. 3. Chronic kidney disease, stage 5D. consult Dr. Kay for medical management. 4. Hypertensive urgency. The patient is unable to hold down medications due to vomiting. Start a labetalol drip per protocol. 5. Diabetes mellitus, type 1. 6. Seizure disorder. Keppra 500 mg IV b.i.d., as she is unable to hold any oral medications. 7. History of cerebrovascular accident. Aware. Further treatments pending hospital course. Dictated by MANNY Levine for Narcisa Pack MD cc: MANNY Levine MD I performed a face to face encounter on the patient. I reviewed all labs and imaging on the patient. I agree with the H&P as dictated. is a 38 year old female with an extensive history of seizure disorder, ESRD on hemodialysis, poorly controlled insulin dependent diabetes mellitus and hypertension who presented to the ER with intractable nausea and vomiting and accelerated hypertension. On exam, the patient was noted to be lethargic. Her breath sounds were clear to auscultation bilaterally. She was tachycardic and restless. Her laboratory studies revealed an high anion gap metabolic acidosis consistent with DKA. Also her blood pressure was markedly elevated. The patient will be admitted to the ICU. The DKA protocol will be initiated. Will consult with the garage door opener installer to continue the patient's scheduled dialysis sessions. GARY
[2018-12-27] MEDS ORDERED: NS 2,000 ML MISC PRN (06:14)
[2018-12-27] MEDS ORDERED: HEPARIN IV PRN (06:14)
[2018-12-27] MEDS ORDERED: TIGHT: 0.2 ML/HR FOR DIALYSIS MISC PRN (06:14)
--- NOTE | 2018-12-27 08:25 | EKG Report ---
Test Performed on : 12/26/2018 11:48:01 PM Test Reason : LEFT ARM PAIN Blood Pressure : / mmHG Vent. Rate : 084 BPM Atrial Rate : 084 BPM P-R Int : 162 ms QRS Dur : 086 ms QT Int : 456 ms P-R-T Axes : 060 005 021 degrees QTc Int : 538 ms Normal sinus rhythm. Prolonged QT Abnormal ECG When compared with ECG of 26-DEC-2018 13:16, (Unconfirmed) No significant change was found Confirmed by Rojas CORREA, David Alberts ([id number]) on 12/28/2018 8:45:26 AM
[2018-12-27] MEDS: PROTONIX IV SCH ×2 (09:04→20:39)
[2018-12-27] MEDS ORDERED: FIORICET PO ONE (09:33)
--- NOTE | 2018-12-27 09:57 | NEPHROLOGY CONSULTATION ---
DATE: 12/27/2018 REASON FOR CONSULTATION: Hypertensive emergency and ESRD. I was contacted by Alondra Wahl on the evening of 12/26/2018. HISTORY OF PRESENT ILLNESS: Ms. Chaparro is a 38-year-old woman who is well known to us. She has type 1 diabetes complicated by gastropathy, ESRD, peripheral vascular disease, etc. She has been doing exceptionally well for an extended time, but in the last 2 to 3 weeks, she states that she has had intermittent and worsening symptoms of nausea and vomiting and difficulty with taking her medicines. She has not been able to take any of her medicines over the last 48 hours, and has intractable vomiting. Because of these symptoms, she came to the emergency room for evaluation, where she was found to be markedly hypertensive with initial blood pressure of 183/107, with a heart rate of 105, and respirations of 37. She was treated appropriately with intravenous antihypertensive medications, and has experienced progressive improvement in her blood pressure management. Blood pressure at the time of my exam was 156/88. She does not have any nausea this morning. No vomiting. She has not tried to take p.o. No chills, fever, sweats, night sweats. No shortness of breath at this time. PAST MEDICAL HISTORY: As above. She also has LV dysfunction with LVEF of approximately 30%. HOME MEDICATIONS: Include lactulose, zolpidem, clonazepam, tramadol, labetalol, metoclopramide, erythropoietin, mirtazapine, pravastatin, clonidine, insulin, levetiracetam, pantoprazole, phenytoin, lisinopril, polyethylene glycol, oxcarbazepine, amlodipine. ALLERGIES: None. SOCIAL HISTORY: She is currently living with her parents. No alcohol or tobacco. FAMILY HISTORY: Noncontributory. REVIEW OF SYSTEMS: Noncontributory. PHYSICAL EXAMINATION: Vital Signs: Blood pressure 169/103, heart rate 84, respirations 14, afebrile. General: No acute distress. Skin: Warm and dry. HEENT: Conjunctivae are pink. Neck veins are not distended. Oropharynx is moist. Dentition normal. Tongue normal. Neck: Supple. Trachea is midline. No jugular venous distention. Heart: PMI is nondisplaced. Regular rate and rhythm with S4. Lungs: Equal. No crackles or wheezes. Abdomen: Soft, nontender. Bowel sounds present. Extremities: No edema, clubbing, or cyanosis. IMPRESSION: 1. Hypertensive emergency, improved with intravenous labetalol. We will try to reintroduce some of her oral medicines this morning, and follow her response. 2. End-stage renal disease. She will have her routine dialysis today, but we will use a 3- potassium bath and her outpatient dry weight. 3. Anemia. Acceptable. cc: Hardy Kay MD
[2018-12-27] MEDS: NORVASC PO SCH (10:44)
[2018-12-27] MEDS: PRINIVIL PO SCH (10:44)
[2018-12-27] MEDS: HUMULIN R SUBQ SCH ×3 (11:15→21:01)
[2018-12-27] MEDS: TRANDATE PO SCH ×2 (13:14→17:45)
[2018-12-27] MEDS: DILANTIN PO SCH (17:45)
[2018-12-27] MEDS ORDERED: LABETALOL IV PRN (18:22)
--- NOTE | 2018-12-27 19:56 | PROGRESS NOTE ---
DATE: 12/27/2018 SUBJECTIVE: The patient is awake and alert. She states that she is no longer feeling nauseous, and is requesting something to eat. OBJECTIVE: Vital Signs: Temperature 98.6 degrees, blood pressure 180/116, respirations 19, heart rate 91, O2 saturation 98% on room air. General: This is a thin, young female lying in bed in no acute distress. Heart: S1, S2 normal. Tachycardic. Lungs: Clear to auscultation bilaterally. No wheezing. No rales. No rhonchi. Abdomen: Positive bowel sounds. Soft, nontender, nondistended. Extremities: No edema, no cyanosis, no calf tenderness. Neurologic: The patient is alert and oriented x4. LABS: White blood cell count 6.2, hemoglobin 9.6, hematocrit 29, platelets 214,000. ABG: pH is 7.38, pCO2 47, pO2 66, bicarb 26. Sodium 141, potassium 3.8, chloride 104, CO2 25, BUN 32, creatinine 5.5, glucose 65. ASSESSMENT AND PLAN: 1. Intractable nausea and vomiting, secondary to severe diabetic gastroparesis. This has improved. The patient is currently on intravenous Reglan. We will start the patient on a full liquid diet and monitor her response. Continue on intravenous Protonix. We will also start laxative therapy. 2. Uncontrolled hypertension. The patient's home medications have been restarted. We will monitor the patient's blood pressure closely. 3. Uncontrolled insulin dependent diabetes mellitus. The patient's blood sugars improved without initiating the diabetic ketoacidosis protocol overnight. We will monitor the patient's blood sugars every 4 hours, and cover the patient with sliding scale insulin. We will also restart Lantus. 4. End stage renal disease. Management as per the public safety police. 5. Seizure disorder. Continue on Keppra. 6. Deep vein thrombosis prophylaxis. Will start the patient on heparin. 7. Disposition. The patient is medically stable for transfer to the medical floor. cc: Narcisa Pack MD
[2018-12-27] MEDS: KEPPRA PO SCH (20:38)
[2018-12-27] MEDS: HEPARIN SUBQ SCH (20:38)
[2018-12-27] MEDS: SODIUM CHLORIDE 0.9% INJ SCH (20:39)
[2018-12-27] MEDS ORDERED: REMERON PO SCH (21:00)
[2018-12-28] MEDS: REGLAN IV SCH ×2 (01:59→09:24)
[2018-12-28] MEDS: HUMULIN R SUBQ SCH ×2 (06:35→14:41)
[2018-12-28 07:56] LABS: HEMATOCRIT 30.8 % (37.0-47.0); MCH 32.6 PG (27-31); MCHC 32.5 g/dL (33-37); MCV 100.3 FL (81-99); MPV 10.3 FL (7.4-10.4); RBC 3.07 XMIL (4.2-5.4); WBC 5.62 X1000 (4.8-10.8)
[2018-12-28 08:35] LABS: ALBUMIN 3.7 g/dL (3.5-5.0); CALCIUM 8.2 mg/dL (8.8-10.2); PHOSPHORUS 2.1 mg/dL (2.7-4.5); POTASSIUM 3.5 mmol/L (3.5-5.1)
[2018-12-28] MEDS ORDERED: LANTUS INSULIN SUBQ SCH (09:00)
[2018-12-28] MEDS: NORVASC PO SCH (09:24)
[2018-12-28] MEDS: TRANDATE PO SCH ×2 (09:24→14:41)
[2018-12-28] MEDS: DILANTIN PO SCH ×2 (09:24→14:40)
[2018-12-28] MEDS: PROTONIX IV SCH (09:24)
[2018-12-28] MEDS: SODIUM CHLORIDE 0.9% INJ SCH (09:24)
[2018-12-28] MEDS: KEPPRA PO SCH (09:24)
[2018-12-28] MEDS: PRINIVIL PO SCH (09:24)
[2018-12-28] MEDS: HEPARIN SUBQ SCH (09:24)
[2018-12-28 13:23] VITALS: BP 144/75
--- NOTE | 2018-12-28 14:22 | NEPHROLOGY PROGRESS NOTE ---
DATE: 12/28/2018 TIME SEEN: 0640. SUBJECTIVE: Ms. Chaparro is resting quietly in bed. Head of the bed is slightly elevated. No indications of recent nausea or vomiting. OBJECTIVE: Vital Signs: Temperature 97.6, blood pressure 145/78, heart rate 85, respirations 18. She is on room air. Last recorded saturation 98%. She has had 1150 in, 2024 out. This is on dialysis. Labs: Sodium 144, potassium 3.5, chloride is 102, CO2 28, BUN 17, creatinine 4, glucose 102, her anion gap is 14, her calcium is 8.2, phosphorus 2.1, albumin is 3.7. White count 5.62, hemoglobin 10, hematocrit 30.8, with a platelet count of 228,000. Physical Examination: General: This is a 38-year-old, female. She is resting quietly in bed. She appears chronically ill, though in no acute distress. Her skin is warm and dry. HEENT: Normocephalic, atraumatic. Conjunctivae are pale. She has LUDWIG. Mucous membranes are dry. Neck: Supple. Trachea midline. No evidence of JVD. Cardiovascular: She is regular rate and rhythm. She is without murmur or gallop. Lungs: Clear to auscultation bilaterally. Equal excursion on room air. Abdomen: Soft, nontender. Positive bowel sounds. Genitourinary: Not inspected. Minimal void with dialysis assist. Extremities: Have no edema. No clubbing or cyanosis. Neurological: She is alert and oriented x3. ASSESSMENT AND PLAN: 1. Chronic kidney disease stage 5D. The patient is due for her routine dialysis treatment in the morning. No indications for intervention today. 2. Electrolytes and acid-base balance. These are stable. 3. Hypertensive urgency from poor adherence with PO regimen related to n/v. Patient has tolerated dialysis well. She is back on her home medications. This is running stable. 4. Electrolytes and acid-base balance with correction on dialysis. 5. Anemia. This is acceptable. I would like to thank you for allowing us to follow with this patient. Dictated by MANNY Hatch for Hardy Kay MD Face to face encounter, data reviewed, discussed with Gerri Fitzgerald on 12/28/18. I agree with the above assessment and plan of care. cc: MANNY Hatch MD MTDD
--- NOTE | 2018-12-29 08:10 | DISCHARGE SUMMARY ---
ADMISSION DATE: 12/26/2018 DISCHARGE DATE: 12/28/2018 FINAL DISCHARGE DIAGNOSES: 1. Intractable nausea and vomiting secondary to severe diabetic gastroparesis. 2. Accelerated hypertension. 3. Poorly controlled insulin-dependent diabetes mellitus. 4. End stage renal disease on hemodialysis. 5. Seizure disorder. CONSULTATIONS: Nephrology consultation with Dr. Kay. IMAGIN. Portable chest x-ray performed on 12/26/2018, which revealed mild cardiomegaly with pulmonary edema versus fibrosis. 2. Abdominal x-ray performed on 12/26/2018 which revealed a prominent liver. HOSPITAL COURSE: Ms. Chaparro is a 38-year-old female with a history of poorly controlled insulin- dependent diabetes mellitus, seizures, seizure disorder, and end-stage renal disease on hemodialysis, who presented to the ER with a chief complaint of abdominal pain, nausea and vomiting. The patient reports that she had been doing well up until the last 24 to 48 hours prior to admission. The patient was admitted to the hospitalist service to the ICU. Her blood pressure was markedly elevated due to the fact that she could not keep any of her oral medications down. Initially, the patient was noted to have a small amount of ketones, and her blood sugars were ranging anywhere from 300 to 400, and she also had a gap of 20. Initially, an insulin drip was started, however, it was not started because the patient's blood sugars improved. She was given 2 L of fluid while in the ER. Within 24 hours, the patient's intractable nausea and vomiting had improved and she was requesting food. Also, her blood sugars had improved. The patient continued to improve clinically. Her oral antihypertensives were restarted, and she was able to tolerate a diabetic diet and all of her medications without any difficulty. The patient underwent dialysis during her hospitalization and tolerated it without any difficulty. The patient continued to improve clinically, and was ultimately cleared for discharge home on 12/28/2018. DISCHARGE MEDICATIONS: 1. Labetalol 400 mg oral 3 times a day. 2. Reglan 10 mg oral before meals and at bedtime. 3. Epogen 43204 units subcutaneous every Tuesday, Tuesday, and Tuesday. 4. Remeron 45 mg oral at bedtime. 5. Biotin 1 mg oral every other day. 6. Catapres 0.2 mg oral daily. 7. Keppra 750 mg oral twice a day. 8. Multivitamin 1 tab oral daily. 9. Protonix 40 mg p.o. daily. 10. Dilantin 100 mg oral 3 times a day. 11. Lisinopril 40 mg oral daily. 12. Norvasc 10 mg oral daily. 13. NovoLog FlexPen subcutaneous before meals and at bedtime as needed. 14. Glargine 16 units subcutaneous daily. 15. Pravastatin 80 mg oral at bedtime. 16. Lasix 40 mg p.o. twice a day. 17. MiraLAX 17 g oral twice a day p.r.n. for constipation. DISCHARGE DIET: Diabetic/renal diet. ACTIVITY: As tolerated. FOLLOWUP INSTRUCTIONS: The patient will need to follow up with Dr. Lee within 1 to 2 weeks. The patient will need to also follow up with Dr. Ennis as scheduled. cc: Narcisa Pack MD MTDD
== END 2018-12-28 14:43 | disposition home or self-care (01) | DRG 637 ==
LOC: SUPCPDRO → ED 12:41 → ICU 18:23 → 3N 12-28 02:57
PROVIDERS: ATTEND Internal Medicine
CPT/HCPCS: 71010; 71045; 74019; 74020; 80053; 80069; 80185; 82009; 82805; 82948; 83735; 84100; 85025; 85027; 93005; 93010; 96361; 96374; 96375; 99285; A9270; C9113; J1644; J1815; J1953; J2270; J2405; J2765; J7030; J7050; S0164; XXXXX

== ENCOUNTER 2019-03-18 11:45 | Inpatient (IN) ==
--- NOTE | 2019-03-18 12:26 | PROVIDER DOCUMENTATION ---
This chart was entered by Lianet Bowles Scribe, acting as scribe for Negar Kennedy CRNP. HPI-Chest Pain - General Chief Complaint: Abdominal Pain Stated Complaint: ABD PAIN/ BACK PAIN Time Seen by Provider: 03/18/19 12:00 Source: patient Allergies/Adverse Reactions: Patient Allergies Allergy/AdvReac Type Severity Reaction Status Date / Time adhesive Allergy RASH Verified 01/18/19 07:57 Home Medications: Home Medication List Medication Instructions Recorded Confirmed Last Taken Type Biotin 1 mg PO EVERY OTHER DAY #120 cap 01/26/18 01/17/19 Unknown Rx Clonidine [Catapres] 0.2 mg PO DAILY #120 tab 01/26/18 01/17/19 Unknown Rx Epoetin Yasir [Epogen] 10,000 unit SUBQ MoWeFr@0900 vial 01/26/18 01/17/19 Unknown Rx LISINOpril [Prinivil] 40 mg PO DAILY #30 tab 01/26/18 01/17/19 Unknown Rx Levetiracetam [Keppra] 750 mg PO BID #60 tab 01/26/18 01/17/19 Unknown Rx Mirtazapine [Remeron] 45 mg PO QHS #90 tab 01/26/18 01/17/19 Unknown Rx Multivitamins/Minerals [Centrum 1 ea PO DAILY #120 tab 01/26/18 01/17/19 Unknown Rx Tablet] Pantoprazole [Protonix] 40 mg PO DAILY #90 tab 01/26/18 01/17/19 Unknown Rx Phenytoin [Dilantin] 100 mg PO TID #90 cap 01/26/18 01/17/19 Unknown Rx Amlodipine [Norvasc] 10 mg PO DAILY #120 tab 05/17/18 01/17/19 Unknown Rx Insulin Aspart [Novolog Flexpen] 0 unit SQ AC + HS PRN PRN 12/27/18 01/17/19 Unknown History Insulin Glargine,Hum.rec.anlog 16 unit SQ DAILY 12/27/18 01/17/19 Unknown History [Basaglar Kwikpen U-100] Pravastatin Sodium 80 mg PO HS 12/27/18 01/17/19 Unknown History Labetalol [Trandate] 400 mg PO TID #180 tab 12/28/18 01/17/19 Unknown Rx Metoclopramide [Reglan] 10 mg PO AC + HS #120 tab 12/28/18 01/17/19 Unknown Rx Hydrocodone/APAP 5 mg/325 mg 1 ea PO Q6H PRN PRN #20 tab 01/18/19 Unknown Rx [[place]-5] Multivitamin with Iron [One Daily 1 ea PO DAILY #100 tab 01/18/19 Unknown Rx with Iron] Ondansetron HCl [Zofran] 4 mg PO Q4H PRN #10 tab 01/18/19 Unknown Rx Dicyclomine HCl 20 mg PO Q6H PRN PRN #20 tab 03/10/19 Unknown Rx Promethazine [Phenergan] 25 mg [place] Q6H PRN PRN #10 supp 03/10/19 Unknown Rx - History of Present Illness-CP Nature of Presenting Problem: 39 y/o female presents to ED with L sided chest pain radiating down L arm, epigastric pain, N/V, and SOB onset last night. Pt reports she has hx gastroparesis and is on MWF dialysis. Pt is alert and oriented. Location: reports: other (L sided) Chest Pain Radiation: reports: arms (L) Quality of Pain: reports: sharp Severity in ED: mild Onset/Duration: last night Timing: still present Context/Activities at Onset: reports: none Modifying Factors: improves with: nothing Associated Symptoms: reports: abdominal pain, nausea, shortness of breath, vomiting Nitro Today/Relief: no nitro taken today Aspirin Treatment Today: no aspirin today Prior Chest Pain/Cardiac Workup: reports: no prior chest pain, no prior cardiac workup Similar Symptoms Previously?: No Recently Seen Here or By Another Healthcare Provider: No Review of Systems - Adult - REVIEW OF SYSTEMS - ADULT Constitutional: denies: chills, fever Eyes: reports: no symptoms reported Ears, Nose, Mouth & Throat: reports: no symptoms reported Cardiovascular: reports: chest pain (radiating to L arm). denies: palpitations Respiratory: reports: shortness of breath. denies: cough Gastrointestinal: reports: abdominal pain, nausea, vomiting. denies: diarrhea Genitourinary: reports: no symptoms reported Musculoskeletal: denies: back pain, joint pain Integumentary: reports: no symptoms reported Neurological: denies: dizziness/vertigo, seizure Psychiatric: reports: no symptoms reported Endocrine: reports: no symptoms reported Hematologic/Lymphatic: reports: no symptoms reported Allergic/Immunologic: reports: no symptoms reported All Other Systems: Reviewed and Negative Past History - Adult - PAST MEDICAL HISTORY-ADULT Review of Records: reports: Old Records Reviewed, Nursing Assessment Review, Medications Reviewed Major Childhood Illnesses: reports: denies history Cardiovascular: reports: CHF, HTN, hyperlipidemia, other (cardiomyopathy) Respiratory: reports: denies history Gastrointestinal: reports: GERD, other (gastroparesis, eroding esophagus) Obstetrical/Gynecological: reports: denies history Genitourinary: reports: dialysis (MWF), kidney disease Musculoskeletal: reports: denies history Neurological: reports: CVA, Seizures/Epilepsy Psychiatric: reports: anxiety Endocrine/Immune: reports: anemia, Diabetes Other Conditions: reports: cataract/glaucoma, other (VRE) - PRIOR SURGERIES/PROCEDURES Surgical/Procedure History: reports: colonoscopy, cholecystectomy, indwelling device (dialysis access), other (cataract removal; cornea transplant; lap; feeding tube) - PRIOR HOSPITALIZATIONS Prior Hospitalizations: reports: for other non-related - IMMUNIZATION STATUS Childhood Immunizations: See Nurse Assessment Flu Vaccine: See Nurse Assessment - FAMILY HISTORY Family History: reviewed, not pertinent - SOCIAL HISTORY Smoking: less than 1 pack/day Provider spent 3-5 mins advising pt. on dangers of tobacco.: Discussed manners to quit use, and f/u contacts for add'l counseling. Substance Use: none/never Alcohol Use Frequency: never Living Situation: family Physical Exam-General - PHYSICAL EXAM-ADULT Initial Vital Signs Reviewed: Yes - CONSTITUTIONAL General Appearance: appears well, alert, moderate distress, other (dramatically thrashing and groaning in pain) - EYES Eyes: PERRL/EOMI, pink conjunctivae - HEAD, EARS, NOSE, MOUTH & THROAT HENMT: normocephalic/atraumatic, moist mucous membranes, normal ENT inspection - NECK Neck: non-tender, full range of motion - RESPIRATORY Respiratory: chest non-tender, lungs clear, normal breath sounds - CARDIOVASCULAR Cardiovascular: normal peripheral pulses, regular rate, rhythm - GASTROINTESTINAL (ABDOMEN) Abdominal Exam: non tender, soft, abnormal bowel sounds (hypoactive). negative: normal bowel sounds - MUSCULOSKELETAL Back Exam: normal inspection, no CVA tenderness, no vertebral tenderness Extremity: normal range of motion, non-tender - SKIN Integumentary: normal color, warm/dry - NEUROLOGIC Neurologic: grossly normal - PSYCHIATRIC Psych/Mental Status: normal mood/affect, normal thought content, normal thought process, oriented x 3, other (dramatically thrashing and groaning in pain) - HEART Score HEART Score: History: Slightly Suspicious HEART Score: ECG: Normal HEART Score: Age: < or = 45 Years HEART Score: Risk Factors for Atherosclerotic Disease: 1 or 2 Risk Factors HEART Score: Troponin: < or = Normal Limit Total HEART Score:: 1 Progress - PLAN OF CARE/RESULTS Progress/Plan/Lab Results: Vital Signs - 8 hr 03/18/19 11:58 03/18/19 12:01 03/18/19 12:31 Temperature 98.3 F Pulse Rate 105 H 107 H 101 H Respiratory Rate 23 36 H 23 Blood Pressure 220/128 220/128 O2 Sat by Pulse Oximetry 100 99 03/18/19 13:01 03/18/19 13:31 03/18/19 14:00 Temperature Pulse Rate 97 H 98 H 100 H Respiratory Rate 32 H 27 H 30 H Blood Pressure O2 Sat by Pulse Oximetry 96 94 L 03/18/19 14:09 Temperature Pulse Rate 99 H Respiratory Rate 25 H Blood Pressure 190/114 O2 Sat by Pulse Oximetry 99 Laboratory Results - last 24 hr 03/18/19 03/18/19 03/18/19 12:25 12:25 12:25 WBC 8.90 RBC 4.61 Hgb 13.5 Hct 41.8 MCV 90.7 MCH 29.3 MCHC 32.3 L RDW Std Deviation 18.0 H Plt Count 269 MPV 11.0 H Immature Gran % (Auto) 0.3 Neut % (Auto) 77.5 H Lymph % (Auto) 12.4 L Dale % (Auto) 8.3 Eos % (Auto) 0.7 Baso % (Auto) 0.8 Immature Gran # (Auto) 0.03 Neut # (Auto) 6.90 H Lymph # (Auto) 1.10 L Dale # (Auto) 0.74 H Eos # (Auto) 0.06 Baso # (Auto) 0.07 Sodium 143 Potassium 5.5 H Chloride 97 L Carbon Dioxide 23 L Anion Gap 23 BUN 29 H Creatinine 5.3 H Estimated GFR/1.73 m2 11 BUN/Creatinine Ratio 5 Glucose 298 H Calculated Osmolality 302 Calcium 9.1 Total Bilirubin 0.67 AST 26 ALT 22 Alkaline Phosphatase 334 H Creatine Kinase 98 Troponin T 0.065 Total Protein 8.6 H Albumin 4.4 Globulin 4.2 Albumin/Globulin Ratio 1.0 TSH Serum , Qual 03/18/19 03/18/19 12:25 12:25 WBC RBC Hgb Hct MCV MCH MCHC RDW Std Deviation Plt Count MPV Immature Gran % (Auto) Neut % (Auto) Lymph % (Auto) [place] % (Auto) Eos % (Auto) Baso % (Auto) Immature Gran # (Auto) Neut # (Auto) Lymph # (Auto) Dale # (Auto) Eos # (Auto) Baso # (Auto) Sodium Potassium Chloride Carbon Dioxide Anion Gap BUN Creatinine Estimated GFR/1.73 m2 BUN/Creatinine Ratio Glucose Calculated Osmolality Calcium Total Bilirubin AST ALT Alkaline Phosphatase Creatine Kinase Troponin T Total Protein Albumin Globulin Albumin/Globulin Ratio TSH 1.49 Serum , Qual NEGATIVE Orders Category Date Time Status Saline Loc NOW Care 03/18/19 11:51 Active CHEST-1 VIEW [RAD] Stat Exams 03/18/19 14:[address] HEAD W/O CONTRAST [CT] Stat Exams 03/18/19 14:07 Ordered CBC WITH ELECTRONIC DIFF [HEME] Stat Lab 03/18/19 12:25 Completed CK PROFILE [SP CHEM] Stat Lab 03/18/19 12:25 Completed COMPREHENSIVE METABOLIC PANEL [CHEM] Stat Lab 03/18/19 12:25 Completed HCG [ TEST-SERUM] [PREG] Stat Lab 03/18/19 12:25 Completed TROPONIN T Stat Lab 03/18/19 12:25 Completed TSH Stat Lab 03/18/19 12:25 Completed Lorazepam [Ativan] Med 03/18/19 13:59 Discontinued 1 mg IV NOW ONE EKG [EKG] Stat Ther 03/18/19 11:51 Draft Laboratory Tests 03/18/19 03/18/19 03/18/19 12:25 12:25 12:25 WBC 8.90 RBC 4.61 Hgb 13.5 Hct 41.8 MCV 90.7 MCH 29.3 MCHC 32.3 L RDW Std Deviation 18.0 H Plt Count 269 MPV 11.0 H Immature Gran % (Auto) 0.3 Neut % (Auto) 77.5 H Lymph % (Auto) 12.4 L [place] % (Auto) 8.3 Eos % (Auto) 0.7 Baso % (Auto) 0.8 Immature Gran # (Auto) 0.03 Neut # (Auto) 6.90 H Lymph # (Auto) 1.10 L [place] # (Auto) 0.74 H Eos # (Auto) 0.06 Baso # (Auto) 0.07 Sodium 143 Potassium 5.5 H Chloride 97 L Carbon Dioxide 23 L Anion Gap 23 BUN 29 H Creatinine 5.3 H Estimated GFR/1.73 m2 11 BUN/Creatinine Ratio 5 Glucose 298 H Calculated Osmolality 302 Calcium 9.1 Total Bilirubin 0.67 AST 26 ALT 22 Alkaline Phosphatase 334 H Creatine Kinase 98 Troponin T 0.065 Total Protein 8.6 H Albumin 4.4 Globulin 4.2 Albumin/Globulin Ratio 1.0 TSH Serum , Qual 03/18/19 03/18/19 12:25 12:25 WBC RBC Hgb Hct MCV MCH MCHC RDW Std Deviation Plt Count MPV Immature Gran % (Auto) Neut % (Auto) Lymph % (Auto) [place] % (Auto) Eos % (Auto) Baso % (Auto) Immature Gran # (Auto) Neut # (Auto) Lymph # (Auto) Dale # (Auto) Eos # (Auto) Baso # (Auto) Sodium Potassium Chloride Carbon Dioxide Anion Gap BUN Creatinine Estimated GFR/1.73 m2 BUN/Creatinine Ratio Glucose Calculated Osmolality Calcium Total Bilirubin AST ALT Alkaline Phosphatase Creatine Kinase Troponin T Total Protein Albumin Globulin Albumin/Globulin Ratio TSH 1.49 Serum , Qual NEGATIVE Discussed results and plan of care with patient. Patient agrees with plan and verbalizes understanding. Result Diagrams: 03/18/19 12:25 03/18/19 12:25 - EKG 1 Time of EKG reading by physician:: 12:04 EKG Read and Signed by:: Augustine Childs EKG Interpretation (*Must complete 3 of following elements*): Normal Rate: 105 Rhythm: Sinus tach [place]: normal QRS: normal OK Interval: normal ST Wave: normal - CONSULTS/PCP/HOSPITALIST Notification #1 *Consult/PCP/Hospitalist*: MANNY Franks for Dr. Corral Time Discussed: 14:18 Reason/Comments: Admission Consult Disposition: Will see in ED, Admit Departure - Departure Date of Disposition Decision: 03/18/19 Time of Disposition Decision: 14:17 DIAGNOSIS: Seizure Nausea & vomiting Qualifiers: Vomiting type: unspecified Vomiting Intractability: non-intractable Qualified Code(s): R11.2 - Nausea with vomiting, unspecified Renal failure Qualifiers: Renal failure chronicity: chronic Chronic kidney disease stage: unspecified stage Qualified Code(s): N18.9 - Chronic kidney disease, unspecified Abdominal pain Qualifiers: Abdominal location: generalized Qualified Code(s): R10.84 - Generalized abdomin al pain Disposition: ADMITTED INPATIENT 09 Certified Medical Emergency: Emergent Condition: Serious Referrals and Follow-Ups: Vicki Lee MD [Primary Care Provider] - Discharge Education: Steps to Quit Smoking, [id number] - Critical Care Note This patient required my direct & personal management of CC.: Yes Total Time (mins): 45 Critical Care Statement: This patient required my direct personal management to treat or rule out processes, the absence of which, could potentiallly result in sudden, clinically significant life or limb threatening deterioration. Attestation - Physician/ SARAI Attestation Patient care was provided by Advanced Practice Provider:: Yes Advanced Practice Provider:: Negar Kennedy Advanced Practice Provider documentation review:: The Mid-level provider documentation, treatment plan and medical decision making was reviewed by the physician who agrees with all treatment and medical decision making by the MLP. The physician spent face to face time with patient:: No Advanced Practice Provider documentation review:: Supervising physician onsite and consulted in the evaluation and care of this patient. The physician did not have a face to face encounter with the patient. This chart was documented by the indicated scribe, (Lianet Bowles Scribe) and accurately reflects the services I performed and decisions made by me, Negar Kennedy CRNP, as attested by the provider's signature.
[2019-03-18 12:40] LABS: BASO# 0.07 X1000 (0.0-0.2); BASO% 0.8 % (0.0-0.8); EOS# 0.06 X1000 (0.0-0.7); EOS% 0.7 % (0.0-10.0); HEMATOCRIT 41.8 % (37.0-47.0); HEMOGLOBIN 13.5 g/dL (12.0-16.0); IMM GRAN# 0.03 X1000 (0.0-0.04); IMM GRAN% 0.3 % (0.0-0.5); LYMPH% 12.4 % (20.5-51.1); MCH 29.3 PG (27-31); MCHC 32.3 g/dL (33-37); MCV 90.7 FL (81-99); MONO# 0.74 X1000 (0.11-0.59); MONO% 8.3 % (1.7-9.3); NEUT% 77.5 % (42.2-75.2); PLT 269 X1000 (130-400); RBC 4.61 XMIL (4.2-5.4)
[2019-03-18 13:21] LABS: ALBUMIN 4.4 g/dL (3.5-5.0); CALCIUM 9.1 mg/dL (8.8-10.2); POTASSIUM 5.5 mmol/L (3.5-5.1); TOTAL BILIRUBIN 0.67 mg/dL (0.20-1.00); TOTAL PROTEIN 8.6 g/dL (6.3-8.3)
[2019-03-18 13:43] LABS: CREATININE 5.3 mg/dL (0.5-0.9)
[2019-03-18] MEDS ORDERED: ATIVAN IV ONE (13:59)
--- NOTE | 2019-03-18 14:12 | EKG Report ---
Test Performed on : 03/18/2019 12:04:42 PM Test Reason : CP Blood Pressure : / mmHG Vent. Rate : 105 BPM Atrial Rate : 105 BPM P-R Int : 156 ms QRS Dur : 078 ms QT Int : 372 ms P-R-T Axes : 058 -13 040 degrees QTc Int : 491 ms Sinus tachycardia. Otherwise normal ECG When compared with ECG of 10-MAR-2019 14:11, (Unconfirmed) Nonspecific T wave abnormality no longer evident in Inferior leads Unconfirmed Result
[2019-03-18] MEDS ORDERED: TYLENOL PO PRN (14:25)
[2019-03-18] MEDS ORDERED: PHENERGAN IV PRN (14:25)
[2019-03-18] MEDS ORDERED: SODIUM CHLORIDE 0.9% INJ PRN (14:25)
[2019-03-18] MEDS ORDERED: ZOFRAN IV PRN (14:25)
[2019-03-18] MEDS ORDERED: KEPPRA 500 MG in NS 100 ML IV ONE (14:32)
[2019-03-18] MEDS ORDERED: ATIVAN IV PRN ×2 (14:35→16:07)
[2019-03-18] MEDS ORDERED: SODIUM CHLORIDE 0.9% INJ SCH (14:45)
--- NOTE | 2019-03-18 14:53 | Diag Imaging Result Doc PS360 ---
CHEST-1 VIEW - 03/18/2019 INDICATION: CP COMPARISON: 03/10/2019 FINDINGS: Stable cardiomegaly and pulmonary vascular congestion. Stable diffuse bilateral interstitial infiltrates compatible with pulmonary edema. No large pleural effusion. IMPRESSION: Cardiomegaly and pulmonary edema. Electronically signed by Rito Gatica 03/18/2019 2:51 PM
[2019-03-18] MEDS: MORPHINE IV PRN ×2 (15:05→20:58)
[2019-03-18] MEDS: REGLAN IV SCH ×2 (15:09→20:15)
[2019-03-18] MEDS: NEXIUM IV SCH (15:11)
--- NOTE | 2019-03-18 15:49 | Diag Imaging Result Doc PS360 ---
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 No intracranial mass or hemorrhage. There is substantial soft tissue gas in the right cheek and temporalis fossa. No fluid collections. The reason is unclear. The skull is intact. The sinuses, mastoids, and middle ears are clear. IMPRESSION: 1. No acute intracranial abnormality. Developmental anomaly. 2. Extensive gas in the right cheek and temporalis fossa of uncertain origin. This exam was performed using automated exposure control, adjustment of mA or kV according to patient size, and/or use of iterative reconstruction technique Electronically signed by Rito Gatica 03/18/2019 3:47 PM
[2019-03-18] MEDS: HUMULIN R SUBQ SCH ×2 (17:09→20:16)
[2019-03-18] MEDS: DILANTIN IV SCH (17:10)
[2019-03-18] MEDS: LABETALOL IV PRN (17:10)
--- NOTE | 2019-03-18 17:43 | HISTORY AND PHYSICAL ---
FAMILY PHYSICIAN: Vicki Lee MD CHIEF COMPLAINT: Nausea/vomiting, pain, and seizures. HISTORY OF PRESENT ILLNESS: This is a 39-year-old female with a past medical history of diabetes mellitus type 2, chronic kidney disease stage 5 (she is on dialysis Tuesday, Tuesday, and Tuesday), diastolic heart failure with EF of 25%. She has presented to the emergency room today, said she was having left-sided chest pain radiating down her left arm. She is having epigastric pain, nausea, vomiting, and shortness of breath. Onset was last night. She reports she has a history of gastroparesis. She also has a past medical history of seizures. While in the ER, patient had a seizure in front of the nurse. This lasted a few minutes and then stopped. She was given Ativan in the ER. I went to see this patient. She had just gotten to the medical floor when I went to see her, and while in the room assessing patient, she had another seizure. This lasted less than a minute. The patient is very lethargic. She is only able answer minimal questions. Even when I entered the room, she was lethargic. They are administering Keppra IV at this time that I had ordered for her. They are having trouble with her IV. It is an EJ IV that was placed in the ER by the ER nurse. She does not appear to have any other IV access at this time. The patient does not appear to be any respiratory distress at this time. Like I said, she is unable to answer my questions appropriately. The patient was having some nausea and vomiting prior to coming to the ER, and she was having abdominal pain and chest pain prior to coming to the ER. We are giving this patient Keppra for her seizures, and I have ordered Ativan p.r.n. for her seizures. Potassium level was 5.5 in the ER, and creatinine was 5.3. This patient is a dialysis patient. Glucose was [address] of the head showed no acute intracranial abnormality, but it did show some extensive gas in the right cheek and temporalis fossa of uncertain origin. Chest x-ray show cardiomegaly and pulmonary edema. The patient denied any fever or chills in the ER when the physician asked. She was unable to tell me at this time. She denied any bloody vomit or bloody stools. PAST MEDICAL HISTORY: 1. Chronic kidney disease, stage 5, on dialysis Tuesday, Tuesday, and Tuesday. 2. Diabetes mellitus, type 1. 3. Hypertension. 4. Seizure disorder. 5. Diastolic heart failure with EF of 25%. 6. Chronic constipation. 7. Esophagitis and gastritis. 8. History of CVA. PAST SURGICAL HISTORY: 1. Corneal transplant. 2. AV fistula, right arm. 3. Cholecystectomy. 4. J-tube placement. SOCIAL HISTORY: She lives with her mother. She denies any alcohol, tobacco, or illicit drug abuse. FAMILY HISTORY: Unable to obtain a complete family history at this time. ALLERGIES: No known drug allergies. The patient is allergic to adhesive tape. HOME MEDICATIONS: Home medication reconciliation has not been done, but according to the medical record, I can see where she takes: 1. Norvasc 10 mg p.o. daily. 2. Biotin 1 mg p.o. every other day. 3. Catapres 0.2 mg p.o. daily. 4. Dicyclomine HCL 20 mg p.o. q.6 h. p.r.n. 5. Epogen 10,000 units subcutaneous on Tuesday, Tuesday, and Tuesday. 6. [place] 5 mg 1 tablet p.o. q.6 h. p.r.n. pain. 7. NovoLog FlexPen subcutaneous a.c. and at bedtime p.r.n. 8. Insulin glargine 16 units subcutaneous daily. 9. Labetalol 400 mg p.o. t.i.d. 10. Keppra 750 mg p.o. b.i.d. 11. Lisinopril 40 mg p.o. daily. 12. Reglan 10 mg p.o. a.c. and at bedtime. 13. Remeron 45 mg p.o. at bedtime. 14. Multivitamin with iron 1 tablet p.o. daily. 15. Centrum Silver 1 tablet p.o. daily. 16. Zofran 4 mg p.o. q.4 h. p.r.n. 17. Protonix 40 mg p.o. daily. 18. Dilantin 100 mg p.o. t.i.d. 19. Pravastatin sodium 80 mg p.o. at bedtime. 20. Promethazine 25 mg per rectum q.6 h. p.r.n. REVIEW OF SYSTEMS: A 12 point review of systems has been obtained. All are negative except what is stated above in the HPI. LABORATORY AND DIAGNOSTICS: White blood cell count 8.90, hemoglobin 13.5, hematocrit 41.8, platelet count is 269,000. Sodium is 143, potassium is 5.5, chloride is 97, carbon dioxide is 23, BUN is 29, creatinine is 5.3, glucose is 298, calcium is 9.1, bilirubin is 0.67, AST is 26, ALT is 22, alkaline phosphatase is 334. Creatine kinase is 98, troponin is 0.065. TSH is 1.49. Head CT shows no acute intracranial abnormality. It does show extensive gas in the right cheek and temporalis fossa of uncertain origin. Chest x-ray shows cardiomegaly and pulmonary edema. Electrocardiogram shows sinus tachycardia with a rate of 105 beats per minute. PHYSICAL EXAMINATION: GENERAL: This is a 39-year-old female. She is lying in the hospital bed. She is very lethargic at present time. She was able to answer questions minimally prior to having her seizure. Now, she is unable to answer questions as she is postictal. VITAL SIGNS: Temperature 98 degrees, heart rate 100, respiratory rate 18, blood pressure 195/110, O2 saturation 93% on nasal cannula 2 L. HEENT: Head is normocephalic and atraumatic. There is some swelling noted to the left periorbital space. Mucous membranes are dry. NECK: Supple with no lymphadenopathy. Trachea is midline. CARDIOVASCULAR: Regular rate and rhythm. She is tachycardic. S1, S2 noted. No murmurs noted. EXTREMITIES: She does not have lower extremity edema. DP and PT pulses are present and palpable. There is no cyanosis. There are tiny sores all over the extremities. There is an AV graft noted in the right upper arm. PULMONARY: Lung sounds are clear. Respirations are equal and symmetrical. They are nonlabored with no accessory muscle usage. GASTROINTESTINAL: Abdomen is soft, nondistended. Bowel sounds are present. The patient is having abdominal pain, so it is tender to touch. NEUROLOGICAL: Patient is very lethargic at the present time after she received Ativan after she had her seizure. The patient did have a seizure while I was in the room and is postictal. She is able to move all extremities. Did follow some commands initially prior to her seizure. Did not appear to be oriented, though. MUSCULOSKELETAL: The patient is able to move all extremities. There are no deformities noted. SKIN: Patient has several sores noted all over the extremities and to her head also. Skin is warm and dry. ASSESSMENT AND PLAN: 1. Seizures. I have admitted this patient to the medical floor. We will be transferring her to the ICU now since she continues to have seizures. We have started her on Keppra IV, and we will give her Ativan p.r.n. for seizure activity. I have also restarted her home dose of Dilantin IV. Most likely patient has not been able to take her home seizure medication because she has had nausea and vomiting. 2. Chronic kidney disease, stage 5. I have consulted Dr. Kay for this patient. Her regular dialysis days are Tuesday, Tuesday, and Tuesday. We will go with his recommendations on when to do dialysis. 3. Gastroparesis. I have placed this patient on IV Reglan q.6 h. I have also ordered her Zofran and Phenergan. We will keep her n.p.o. 4. Hypertension. I had ordered her IV blood pressure medications of labetalol. We may have to add another medication IV or a patch, since she is unable to take p.o. medications. The patient does take several medications at home for blood pressure. They will monitor this in the ICU. 5. Diabetes mellitus, type 1. I have ordered her routine fingerstick checks AC& HS. We will give insulin per sliding scale protocol. Dictated by MANNY Raygoza for Jose Montero MD Addendum: Patient seen and examined by myself. Agree with Manny note. It reflects my assessment and plan. We are going to transfer this patient to the ICU. We will observe her for seizure activity, place her in seizure precautions, give her the IV Keppra, dilantin, and the Ativan as needed for seizures. I have ordered her IV Zofran, Phenergan, and Reglan for her nausea and vomiting. I have ordered her some morphine for her pain. We have consulted Dr. Kay for her dialysis. We have also consulted Dr. Calderon for IV placement. She is unable to get a PICC line. The patient does not have good IV access peripherally. She probably needs a central line. We have ordered her labetalol for her blood pressure. cc: MD Hardy Gonzalez MD Hiteshri S. Bhavsar, MD MTDD
[2019-03-19] MEDS: DILANTIN IV SCH ×3 (00:30→16:34)
[2019-03-19] MEDS ORDERED: KEPPRA 500 MG in NS 100 ML IV SCH (03:00)
[2019-03-19] MEDS: KEPPRA 750 MG in NS 100 ML IV SCH ×2 (03:24→14:02)
[2019-03-19] MEDS: REGLAN IV SCH ×4 (03:24→21:10)
[2019-03-19] MEDS ORDERED: D50W SYRINGE IV ONE (05:24)
[2019-03-19 05:38] LABS: BASO# 0.05 X1000 (0.0-0.2); BASO% 0.5 % (0.0-0.8); EOS# 0.07 X1000 (0.0-0.7); EOS% 0.7 % (0.0-10.0); HEMATOCRIT 38.8 % (37.0-47.0); HEMOGLOBIN 12.3 g/dL (12.0-16.0); IMM GRAN# 0.02 X1000 (0.0-0.04); IMM GRAN% 0.2 % (0.0-0.5); LYMPH# 1.71 X1000 (1.2-3.4); LYMPH% 16.6 % (20.5-51.1); MCH 29.4 PG (27-31); MCHC 31.7 g/dL (33-37); MCV 92.6 FL (81-99); MONO# 1.22 X1000 (0.11-0.59); MONO% 11.8 % (1.7-9.3); MPV 10.5 FL (7.4-10.4); NEUT# 7.26 X1000 (1.4-6.5); NEUT% 70.2 % (42.2-75.2); PLT 214 X1000 (130-400); RBC 4.19 XMIL (4.2-5.4); RDW 18.3 % (11.5-14.5); WBC 10.33 X1000 (4.8-10.8)
[2019-03-19 05:48] LABS: INR 1.24; PROTIME 16.5 Seconds (11.0-16.0)
[2019-03-19 05:49] LABS: PTT 29.6 Seconds (22.3-41.8)
[2019-03-19] MEDS: HUMULIN R SUBQ SCH ×4 (06:05→21:01)
[2019-03-19] MEDS ORDERED: HEPARIN IV PRN (06:12)
[2019-03-19] MEDS ORDERED: TIGHT: 0.2 ML/HR FOR DIALYSIS MISC PRN (06:12)
[2019-03-19] MEDS ORDERED: NS 2,000 ML MISC PRN (06:12)
[2019-03-19 06:48] LABS: ALB/GLOB RATIO 1.1; ALBUMIN 3.8 g/dL (3.5-5.0); CALCIUM 8.7 mg/dL (8.8-10.2); CREATININE 6.4 mg/dL (0.5-0.9); MAGNESIUM 2.5 mg/dL (1.5-2.7); POTASSIUM 4.3 mmol/L (3.5-5.1); TOTAL BILIRUBIN 0.66 mg/dL (0.20-1.00); TOTAL PROTEIN 7.2 g/dL (6.3-8.3)
[2019-03-19] MEDS ORDERED: PRILOSEC PO SCH (07:00)
[2019-03-19] MEDS: D50W SYRINGE IV PRN ×2 (07:36→21:03)
--- NOTE | 2019-03-19 10:04 | PROGRESS NOTE ---
DATE: 03/19/2019 SUBJECTIVE: The patient has been admitted to the hospital for seizures. She had one episode of seizure right after she was admitted. She has not had any more episodes since then. That was at about 4 p.m. yesterday. The patient's blood sugar has been low, so she was awake, but will restart diabetic diet on her. OBJECTIVE: Vital Signs: Temperature 97.5, heart rate 82, respiratory rate 12, blood pressure 123/86, O2 saturation 96% on room air. General: This is a 39-year-old female, lying in bed in no acute distress. Chronically ill-looking. HEENT: Head is normocephalic, atraumatic. Mucous membranes dry. Neck: No JVD noted. No carotid bruits. No lymphadenopathy. No thyromegaly. Cardiovascular: S1, S2 heard. No murmurs, gallops, or rubs. Regular rate and rhythm. Respiratory: Clear bilaterally to auscultation. No work of breathing or using accessory muscles. Abdomen: Soft, nontender to palpation. Bowel sounds present. No organomegaly. Extremities: No clubbing, cyanosis, or edema. Peripheral pulses present in both legs. Neurological: The patient is awake, oriented x3. Moves all 4 extremities. LABORATORY DATA: White cell count 10.33, hemoglobin 12.3, hematocrit 38.2, platelets 214. INR 1.24. Blood sugar 37. ASSESSMENT AND PLAN: 1. Seizure disorder. Apparently, she has not been taking care of anything that she is supposed to. She said that she does not remember exactly the name of the medication that she is taking. In any case, she has been started on Keppra, and also the home dose of Dilantin. I think at this point, she is much more stable. At this point, will continue with the same management. 2. Chronic kidney disease stage 5, on dialysis. Dr. Kay has been consulted for medical management. Today, she is supposed to have dialysis. Will continue to monitor. 3. Diabetic gastroparesis. The patient has been restarted on Reglan every 6 hours. 4. Hypertension. Will continue with current blood pressure medications. 5. Diabetes mellitus type 2. Will continue with sliding scale insulin and Accu-Chek before meals and also at bedtime. 6. Disposition. Will monitor this patient today here in the intensive care unit. If no seizure is noted, will discharge this patient tomorrow. cc: Jose Montero MD
[2019-03-19] MEDS: LABETALOL IV PRN (12:37)
[2019-03-19] MEDS: NEXIUM IV SCH (13:50)
--- NOTE | 2019-03-19 13:56 | ECHO REPORT ---
ORDER DATE: 03/19/2019 INDICATION: End-stage renal disease, on dialysis. FINDINGS: 1. The right atrium is severely enlarged with a dimension of 5.8 cm. 2. There is severe tricuspid regurgitation. RV systolic pressure of 64, suggesting pulmonary hypertension. 3. There is enlargement of the right ventricle with moderate reduction in RV systolic function. There is flattening of the interventricular septum in both systole and diastole, suggesting right ventricular pressure and volume overload. 4. There is moderate and possibly severe pulmonic insufficiency. 5. Mild left atrial enlargement with a volume index of 29. 6. No mitral valve prolapse. Suggestion of moderate and possibly severe mitral regurgitation. 7. Normal LV size, end-diastolic dimension of 5.1. Normal wall thicknesses with a posterior and interventricular septal wall thickness of 1.1 cm each. Reduced LV systolic function with an estimated EF of 30% and global hypokinesis. 8. Aortic valve seems to open well. It is trileaflet. No evidence of stenosis or insufficiency. 9. Aorta appears normal in visualized segments. 10. No clear evidence of pericardial effusion. cc: MD Jesi Amin CRNP
--- NOTE | 2019-03-19 14:40 | NEPHROLOGY CONSULTATION ---
DATE: 03/19/2019 REASON FOR ADMISSION: Nausea, vomiting with abdominal pain, some chest pain to the right associated with seizures. REASON FOR CONSULT: ESRD. HISTORY OF PRESENT ILLNESS: Ms Chaparro is a 39-year-old female who is known to our outpatient services for hemodialysis on Tuesday, Tuesday, Tuesday at the [facility]. The patient has known history of diabetes mellitus type 1. She also is known to have a diastolic heart failure with an ejection fraction of 25% on her previous hospitalizations. The patient stated that she started having some epigastric pain associated with nausea, vomiting, increased work of breathing more settled into her right chest going down her right arm. During her hospital stay after admission she had history of seizures, was given Keppra and Ativan. Patient was then transferred to the ICU for further monitoring and evaluation. She is having difficulty getting a IV. She is ordered a CVL line per Dr. Irene this a.m. She currently denies chest pain. States that her right chest still is sore but not severe pain more of a 2 out [address] a [address] of her head showed no acute intracranial abnormalities though it did show extensive gas in the right cheek and temporalis fossa of uncertain origin. Chest x-ray on admission did show cardiomegaly and pulmonary edema. She denies any fever or chills. No diarrhea, no hematochezia, hemoptysis or hematuria. The patient has minimal urine output. PAST MEDICAL HISTORY: End-stage renal disease with hemodialysis on Tuesday, Tuesday, Tuesday at the [facility], diabetes mellitus type 1, hypertension, seizure disorders, diastolic heart failure with an ejection fraction of 25% diagnosed in 2018, chronic constipation, esophagitis with gastritis, anemia of chronic disease, she has a history of a CVA, she has osteodystrophy of chronic disease. PAST SURGICAL HISTORY: Corneal transplant, AV fistula right upper arm, cholecystectomy, previous J-tube placement. SOCIAL HISTORY: She lives with her mother. Denies any alcohol, tobacco or illicit drug use. FAMILY HISTORY: She has a previous sister who had diabetes mellitus type 1 who is . Mother and father have heart disease, mother has diabetes, older brother with diabetes. ALLERGIES: Listed to adhesive. No known drug allergies. HOME MEDICATIONS: Norvasc, biotin, Catapres, dicyclomine hydrochloride, Epogen, [place], NovoLog FlexPen, insulin glargine, labetalol, Keppra, lisinopril, Reglan, Remeron, multivitamin with iron, Centrum Silver, Zofran, Protonix, Dilantin, pravastatin, sodium, promethazine. REVIEW OF SYSTEMS: Times 10 with pertinent positives listed above in the HPI. Patient's vital signs temperature 97.5 degrees, blood pressure 132/94, heart rate 84, respirations 13, she is on 2 L nasal cannula, last recorded saturation 98%, she has had 180 in, she has had 0 recorded out. LAB: Sodium 141, potassium 4.3, chloride 100, CO2 23, BUN 35, creatinine 6.4, glucose is 37 which has already been treated this a.m. Her anion gap is 18, calcium 8.7, magnesium 2.5, albumin is 3.8. White count 10.33, hemoglobin 12.3, hematocrit 38.8 with a platelet count of 214,000. PHYSICAL EXAM: This is a 39-year-old female who appears chronically ill, she is in no acute distress.Skin: Warm and dry. HEENT: Normocephalic, atraumatic. Conjunctiva is pale, she has LUDWIG. Mucous membranes are dry. Neck: Supple, trachea midline. No evidence of JVD. Cardiovascular: She is regular rate and rhythm. She has no murmur or gallop. Lungs: Clear to auscultation bilaterally. Equal excursion on O2. Abdomen: Soft, nontender. She has distant bowel sounds. Genitourinary: Not inspected. Minimal void with dialysis assist. Extremities: Patient has several healing sores in different stages to her upper and lower extremities also to her head. Her skin is warm and dry. She does have some dry blood to her left ear. She has a AV fistula to the right upper extremity. Neurological: She is alert and oriented x3. ASSESSMENT AND PLAN: 1. Chronic kidney disease stage 5D. Patient is due for her routine dialysis treatment today. We will place her on a 2K bath. She is to dialyze for 3-1/2 hours. We will pull her to her outpatient dry weight. 2. Electrolytes and acid-base balance with correction on dialysis. 3. Anemia. This remains in target of 12.3 . 4. Seizure activity. Patient has been treated with Ativan and Keppra. Followed by the primary care team. 5. Gastroparesis/sepsis. The patient is not on any documented antibiotics at this time. We will defer to the primary care. Like to thank you for allowing us to follow with this patient. Dictated by MANNY Hatch for Hardy Kay MD Face to face encounter, data reviewed, discussed with Gerri Fitzgerald on 03/19/19. I agree with the above assessment and plan of care. cc: MANNY Hatch MD [facility]
[2019-03-19] MEDS: MORPHINE IV PRN ×2 (16:37→21:07)
[2019-03-20] MEDS: D50W SYRINGE IV PRN ×2 (00:01→04:15)
[2019-03-20] MEDS: DILANTIN IV SCH ×3 (00:16→17:13)
[2019-03-20] MEDS: KEPPRA 750 MG in NS 100 ML IV SCH ×2 (03:45→15:54)
[2019-03-20] MEDS: HUMULIN R SUBQ SCH ×5 (04:00→20:33)
[2019-03-20 07:09] LABS: ALBUMIN 3.7 g/dL (3.5-5.0); CALCIUM 7.8 mg/dL (8.8-10.2); CREATININE 4.3 mg/dL (0.5-0.9); PHOSPHORUS 2.8 mg/dL (2.7-4.5); POTASSIUM 3.9 mmol/L (3.5-5.1)
[2019-03-20] MEDS: D5 NS 1,000 ML IV SCH ×3 (07:30→21:28)
[2019-03-20] MEDS: REGLAN IV SCH ×3 (07:37→20:32)
[2019-03-20] MEDS: MORPHINE IV PRN ×5 (07:52→23:58)
--- NOTE | 2019-03-20 09:35 | PROGRESS NOTE ---
DATE: 03/20/2019 SUBJECTIVE: According to nursing staff, patient has not had any more episodes of seizures since the last one that she got just when she was admitted. The only issue on her has been she has been having low blood sugars in the range of 100's and sometimes drops to 40 and 30 even when she is eating. She reports using Lantus daily. She does not remember that was the day of admission since the last doses. In any case, we will provide D5 normal saline for her. OBJECTIVE: Vital Signs: Temperature 97 degrees, heart rate 71, respiratory rate 12, blood pressure 152/113. O2 saturation 100% on room air. General: This is a chronically ill appearing 39-year-old, female lying in bed in no acute distress. HEENT: Head is normocephalic, atraumatic. Mucous membranes very dry. Neck: No JVD noted. No carotid bruits. No lymphadenopathy. No thyromegaly. Cardiovascular: S1, S2 heard. No murmurs, gallops, or rubs. Regular rate and rhythm. Respiratory: Clear bilaterally to auscultation. No work of breathing or using accessory muscles. Abdomen: Soft, nontender to palpation. Bowel sounds present. No organomegaly. Extremities: No clubbing, cyanosis, or edema. Peripheral pulses present in both legs. Neurological: Patient awake and oriented x3. Moves all 4 extremities. LABORATORY DATA: There is a BMP that shows glucose 117 with calcium 7.8 and phosphorus 2.8. ASSESSMENT AND PLAN: 1. Seizure disorder. That condition seems to be controlled here in the hospital. We have started Keppra on her. I think we will continue with this medication and Dilantin. 2. Chronic kidney disease stage [address] Thomas has been consulted for medical management. I think today is the day that she is supposed to have dialysis. We will continue to monitor. 3. Diabetic gastroparesis. We will continue Reglan. 4. Hypoglycemia. At this point, I think we will start D5 normal saline for this persistent hypoglycemia. 5. Disposition: We will continue to monitor this patient closely in the intensive care unit. cc: Jose Montero MD
--- NOTE | 2019-03-20 12:57 | NEPHROLOGY PROGRESS NOTE ---
DATE: 03/20/2019 SUBJECTIVE: Ms. Chaparro is resting quietly in bed. She is awake and alert. She denies any pain or increased work of breathing. OBJECTIVE: Vital Signs: Temperature 97.3 degrees, blood pressure 165/116, heart rate is 78, respirations 10. She is on 2 L nasal cannula. Last recorded saturation 100%. She has had 565 in. She has had 0 recorded out. LABORATORY DATA: Sodium 141, potassium 3.9, chloride 102, CO2 26, BUN 20, creatinine 4.3, glucose 117. Anion gap is 13. Calcium 7.8, phosphorus 2.8, albumin 3.7. Previous blood hemoglobin count of 12.3 with blood cultures negative. PHYSICAL EXAMINATION: General: This is a 39-year-old female resting quietly in bed. She appears chronically ill. No acute distress. Skin: Warm and dry. HEENT: Normocephalic, atraumatic. Conjunctiva is pale. She has LUDWIG. Mucous membranes are dry. Neck: Supple. Trachea midline. No evidence of JVD. Cardiovascular: She is regular rate and rhythm. No murmur or gallop. Lungs: Clear to auscultation bilaterally. Equal excursion on O2. Abdomen: Soft, nontender. Positive bowel sounds. Genitourinary: Not inspected. Minimal void with dialysis assist. Extremities: Patient has several healing sores in different stages to upper and lower extremities, also to her head. Skin is warm and dry. AV fistula noted to the right upper extremity. This is dry and intact. Neurological: She is alert and oriented x3. No seizure activity noted in the last 24 hours. ASSESSMENT AND PLAN: 1. Chronic kidney disease stage 5D. The patient is due for her routine dialysis treatment in the a.m. No indications for intervention today. 2. Electrolytes, acid-base balance and anemia. These are all acceptable. 3. Seizure activity, treated with Ativan and Keppra by primary care team. 4. Gastroparesis. This is followed by the primary care. 5. Hypo and hyperglycemia. This is followed by protocol by the primary care. I would like to thank you for allowing us to follow with this patient. Dictated by MANNY Hatch for Hardy Kay MD Face to face encounter, data reviewed, discussed with Gerri Fitzgerald on 7/23/19. I agree with the above assessment and plan of care. cc: MANNY Hatch MD [facility]
[2019-03-20] MEDS: NEXIUM IV SCH (13:53)
[2019-03-20] MEDS: BENADRYL IV PRN (19:51)
[2019-03-21] MEDS: D50W SYRINGE IV PRN ×2 (00:06→05:06)
[2019-03-21] MEDS: HUMULIN R SUBQ SCH ×2 (00:32→04:41)
[2019-03-21] MEDS: DILANTIN IV SCH ×3 (00:37→17:35)
[2019-03-21] MEDS: REGLAN IV SCH ×3 (01:58→13:51)
[2019-03-21] MEDS: BENADRYL IV PRN ×3 (01:58→13:59)
[2019-03-21] MEDS: KEPPRA 750 MG in NS 100 ML IV SCH ×2 (01:59→17:35)
[2019-03-21] MEDS: MORPHINE IV PRN ×3 (05:10→13:52)
[2019-03-21 05:36] LABS: CALCIUM 8.6 mg/dL (8.8-10.2); CREATININE 5.5 mg/dL (0.5-0.9); PHOSPHORUS 3.2 mg/dL (2.7-4.5)
[2019-03-21 06:06] LABS: POTASSIUM 4.6 mmol/L (3.5-5.1)
[2019-03-21] MEDS ORDERED: TIGHT: 0.2 ML/HR FOR DIALYSIS MISC PRN (06:33)
[2019-03-21] MEDS ORDERED: NS 2,000 ML MISC PRN (06:33)
[2019-03-21] MEDS ORDERED: HEPARIN IV PRN (06:33)
[2019-03-21] MEDS: D5 NS 1,000 ML IV SCH ×2 (07:47→08:05)
--- NOTE | 2019-03-21 08:57 | PROGRESS NOTE ---
DATE: 03/21/2019 SUBJECTIVE: According to nursing staff, the patient's blood sugar has been high, and when she is treated with sliding scale, blood sugars tend to go really low in the range of 30s and 40s. She has been eating good breakfast and lunch, but not good dinner. OBJECTIVE: Vital Signs: Temperature 97.5 degrees, heart rate 89, respiratory rate 12, blood pressure 125/93, O2 saturation 100% on room air. General: This is a chronically ill-appearing, 39-year-old, female, looking older than her stated age, lying in bed in no acute distress. Cardiovascular: S1, S2 heard. No murmurs, gallops, or rubs. Regular rate and rhythm. Respiratory: Clear bilaterally to auscultation. No work of breathing or using accessory muscles. Abdomen: Soft, nontender to palpation. Bowel sounds present. No organomegaly. Extremities: No clubbing, cyanosis, or edema. Peripheral pulses are present in both legs. Neurological: The patient is alert and oriented x3, moving all 4 extremities. LABORATORY DATA: BMP from today reveals glucose of 51. ASSESSMENT AND PLAN: 1. Hypoglycemia. Just to see how this patient does without any medication, we are going to stop D5 normal saline. We are going to stop any insulin. I will see how she does without any medication. I think if she is more stable, she can be discharged. 2. Seizure disorder. No more seizures since this patient has been in the hospital. Will continue with Keppra that was started here. 3. Chronic kidney disease stage 5, on dialysis. Dr. Kay has been consulted for medical management. Will follow his recommendations. 4. Gastroparesis. Will continue with Reglan. 5. Disposition. Will continue to monitor this patient closely in the intensive care unit. cc: Jose Montero MD [facility]
--- NOTE | 2019-03-21 10:55 | NEPHROLOGY PROGRESS NOTE ---
DATE: 03/21/2019 TIME SEEN: 07. SUBJECTIVE: Ms. Chaparro is resting quietly in bed. She states that she has been feeling better, feels that her blood sugars would do better if she was at home to monitor them and be able to eat. OBJECTIVE: Vital Signs: Temperature 97.5 degrees, blood pressure 116/96, heart rate 90, respirations 14. She is on 2 L nasal cannula. Last recorded saturation 94%. She has had 2990 in. She has had 0 recorded out with need for dialysis. Labs: Sodium is 142, potassium 4.6, chloride is 101, CO2 is 18, BUN 26, creatinine 5.5, glucose 51, the patient has an anion gap of 23, calcium of 8.6, phosphorus 3.2, albumin 4. Hemoglobin of 12.3 last checked. Physical Examination: General: This is a 39-year-old, female resting quietly in bed. She appears chronically ill. No acute distress. Her skin is warm and dry. HEENT: Normocephalic and atraumatic. She does have some facial swelling today. Previous IV to her right neck has now been moved. Neck: Has no JVD. Cardiovascular: She is regular rate and rhythm. She has a systolic murmur. Lungs: Clear to auscultation bilaterally. Equal excursion. She is currently now on room air. Abdomen: Soft, nontender. Positive bowel sounds. Genitourinary: Not inspected. Minimal void with dialysis assist. Extremities: Have no edema. No clubbing or cyanosis. Neurological: She is alert and oriented x3. ASSESSMENT AND PLAN: 1. Chronic kidney disease stage 5D. She is due for her routine dialysis treatment today. We will place her on a 2 K bath. She is to dialyze for 3.5 hours. We will attempt to pull patient to her outpatient dry weight. 2. Electrolytes and acid-base balance. These are acceptable. 3. Anemia. This is in target. 4. Sepsis. The patient remains on renal dosed antibiotics. 5. Seizure activity. She continues on Keppra. 6. Hypo/hyperglycemia. The patient is followed by diabetic ketoacidosis protocol, followed by the primary care. I would like to thank you for allowing us to follow with this patient. Dictated by MANNY Hatch for Hardy Kya MD Face to face encounter, data reviewed, discussed with Gerri Fitzgerald on 03/21/19. I agree with the above assessment and plan of care. cc: MANNY Hatch MD [facility]
[2019-03-21 14:16] VITALS: BP 163/103
[2019-03-21] MEDS: NEXIUM IV SCH (14:45)
--- NOTE | 2019-03-23 11:36 | DISCHARGE SUMMARY ---
ADMISSION DATE: 03/18/2019 DISCHARGE DATE: 03/21/2019 DISCHARGE DIAGNOSES: 1. Seizure disorder, improved. 2. End-stage renal disease on dialysis. 3. Diabetic gastroparesis. 4. Hypertension. 5. Diabetes mellitus type 2. CONSULTATIONS: Dr. Kay from Nephrology for medical management. PROCEDURE: 1. Head CT showed no acute intracranial abnormality. 2. Chest x-ray showed cardiomegaly and mild pulmonary edema. 3. Echocardiogram Doppler show ejection fraction of 30% with global hypokinesis. Right atrium severely enlarged. HOSPITAL COURSE: Basically, this patient is a very well known patient to us with past medical history of diabetes, seizure disorder, end-stage renal disease on dialysis, systolic heart failure with ejection fraction of 25%. She presented to the emergency department complaining of some left- sided chest pain that resolved on its own. Also she had 1 episode of seizure in the ER. Then she he had another episode of seizure just right after she left the emergency department. That is the reason why we decided to admit this patient to the hospital. We have basically continued with all home medications including Dilantin and Keppra. Another issue during her hospitalization has been the blood sugar has been low. We need to put her on D5 normal saline for today and she tolerated the IV fluids very well. We decided to place her on D5 normal saline and 1 day after discharge, we stopped the D5NS and blood sugar has been in the range of 130s and 150s, sometimes higher, but she did not have to have anything like maintenance fluids for her, so she is going to be discharged in stable condition. She is highly recommended to follow her appointment and see her primary care physician doctor in a week. DISCHARGE CONDITION: The patient is being discharged in stable condition. DISCHARGE PHYSICAL EXAMINATION: Vital Signs: Temperature 97.7 degrees, heart rate 93, respiratory rate 14, blood pressure 154/106, O2 saturation 99% on room air. General: This is a chronically ill-appearing, 39-year-old, female lying in bed, in no acute distress. Cardiovascular: S1, S2 heard. No murmurs, gallops, or rubs. Regular rate and rhythm. Respiratory: Clear bilaterally to auscultation. No work of breathing or using accessory muscles. Abdomen: Soft. Nontender to palpation. Bowel sounds present. No organomegaly. Extremities: No clubbing, cyanosis, or edema. Peripheral pulses present in both legs. Neurological: The patient alert and oriented x3. Moves 4 extremities. DISCHARGE DISPOSITION: Home to self-care. DISCHARGE MEDICATIONS: 1. Epogen 60907 units subcutaneous every Tuesday, Tuesday and Tuesday. 2. Remeron 45 mg 1 tablet p.o. at bedtime. 3. Biotin 1 mg 1 tablet p.o. every other day. 4. Keppra 750 mg 1 tablet p.o. b.i.d. 5. Multivitamin 1 tablet p.o. daily. 6. Protonix 40 mg 1 tablet p.o. daily. 7. Dilantin 100 mg 1 tablet p.o. 3 times per day. 8. Prinivil 40 mg 1 tablet p.o. daily. 9. Amlodipine 10 mg 1 tablet p.o. daily. 11. Phenergan p.r.n. for nausea. DISCHARGE TIME: 34 minutes. cc: Jose Montero MD [facility]
== END 2019-03-21 19:30 | disposition home or self-care (01) | DRG 100 ==
LOC: SUPCPDRO → ED 11:45 → 1N 15:20 → ICU 16:17
PROVIDERS: ATTEND Internal Medicine
CPT/HCPCS: 70450; 71010; 71045; 80053; 80069; 82550; 82948; 83735; 84443; 84484; 84703; 85025; 85610; 85730; 87040; 93005; 93306; 94761; 96365; 96375; 99285; A9270; J1165; J1200; J1644; J1953; J2060; J2270; J2405; J2550; J2765; J7030; J7042; XXXXX

== ENCOUNTER 2019-04-19 16:32 | Inpatient (IN) ==
[2019-04-19] MEDS ORDERED: DILAUDID IV ONE ×2 (16:41→19:24)
[2019-04-19] MEDS ORDERED: ZOFRAN IV ONE (16:41)
--- NOTE | 2019-04-19 16:56 | PROVIDER DOCUMENTATION ---
This chart was entered by Mami Lobo Scribe, acting as scribe for Negar Kennedy CRNP. HPI-Musculoskeletal Pain/Inj <SalomonRicky YoungbloodDebi - Last Filed: 04/19/19 18:55> - GENERAL Source: patient - HX OF PRESENT ILLNESS-MUSKULOSKELTAL Quality of Pain: reports: aching Severity in ED: moderate Onset/Duration: just prior to arrival Timing: still present Modifying Factors: worse with: movement, palpation Any recent injury?: Yes (fall ) Locality of Occurance: Work Similar Symptoms Previously?: No Recently seen or treated by another doctor?: Yes - FALL INJURY Location of Pain/Injury: reports: upper extremity (left humerus) Pain Radiation: reports: no radiation Reason for Fall: reports: unknown Loss of Consciousness: no loss of consciousness - UPPER EXTREMITY PAIN/INJURY Extremities Pain Location: arm: left (upper ) Context / Method of Injury: reports: fell <Negar Kennedy - Last Filed: 04/19/19 19:32> - GENERAL Stated Complaint: fall Time Seen by Provider: 04/19/19 16:36 - HX OF PRESENT ILLNESS-MUSKULOSKELTAL Nature of Presenting Problem: Patient is a 39 year old female who presents with left humerus pain. States she was at work and fell. Reports trying to catch herself with her left hand. Denies any other injuries. (Negar Kennedy) Review of Systems - Adult - REVIEW OF SYSTEMS - ADULT ROS:: limited per condition Constitutional: reports: no symptoms reported Eyes: reports: no symptoms reported Ears, Nose, Mouth & Throat: reports: no symptoms reported Cardiovascular: reports: no symptoms reported Respiratory: reports: no symptoms reported Gastrointestinal: reports: no symptoms reported Genitourinary: reports: no symptoms reported Musculoskeletal: reports: see HPI, other (left humerus pain). denies: back pain, neck pain Integumentary: reports: no symptoms reported Neurological: reports: no symptoms reported Psychiatric: reports: no symptoms reported Endocrine: reports: no symptoms reported Hematologic/Lymphatic: reports: no symptoms reported Allergic/Immunologic: reports: no symptoms reported All Other Systems: Reviewed and Negative <Negar Kennedy - Last Filed: 04/19/19 19:32> Past History - Adult - PAST MEDICAL HISTORY-ADULT Review of Records: reports: Old Records Reviewed, Nursing Assessment Review, Medications Reviewed, Social history reviewed & non-contributory. Major Childhood Illnesses: reports: denies history Cardiovascular: reports: CHF, HTN, hyperlipidemia, other (cardiomyopathy) Respiratory: reports: denies history Gastrointestinal: reports: GERD, other (gastroparesis, eroding esophagus) Obstetrical/Gynecological: reports: denies history Genitourinary: reports: dialysis (MWF), kidney disease Musculoskeletal: reports: denies history Neurological: reports: CVA, Seizures/Epilepsy Psychiatric: reports: anxiety Endocrine/Immune: reports: anemia, Diabetes Other Conditions: reports: cataract/glaucoma, other (VRE) - PRIOR SURGERIES/PROCEDURES Surgical/Procedure History: reports: colonoscopy, cholecystectomy, indwelling device (dialysis access), other (cataract removal; cornea transplant; lap; feeding tube) - PRIOR HOSPITALIZATIONS Prior Hospitalizations: reports: for other non-related - IMMUNIZATION STATUS Childhood Immunizations: See Nurse Assessment Flu Vaccine: See Nurse Assessment - FAMILY HISTORY Family History: reviewed, not pertinent - SOCIAL HISTORY Smoking: cigarettes (former) Substance Use: denies Living Situation: family <Negar Kennedy - Last Filed: 04/19/19 19:32> Physical Exam-Injury Related - Physical Exam-Injury Related Initial Vital Signs Reviewed: Yes General Appearance: alert, moderate distress. negative: lethargic Respiratory: chest non-tender, lungs clear, normal breath sounds. negative: rhonchi, wheezing Cardiovascular: normal peripheral pulses, regular rate, rhythm. negative: tachycardia Abdominal Exam: normal bowel sounds, non tender, soft. negative: rigid Extremity: deformity (left humerus), tenderness (left humerus), other (limited ROM to left arm due pain). negative: erythema Integumentary: normal color, warm/dry. negative: ecchymosis, abrasion, laceration Neurologic: grossly normal. negative: aphasia, facial droop Psych/Mental Status: normal mood/affect, oriented x 3. negative: anxious <Negar Kennedy - Last Filed: 04/19/19 19:32> Progress - PLAN OF CARE/RESULTS Result Diagrams: 04/19/19 17:25 <Ricky Salomon - Last Filed: 04/19/19 18:55> - PLAN OF CARE/RESULTS Result Diagrams: 04/19/19 17:25 - XRAY 1 XRAY: Left XRAY Study: Humerus ([facility] - [address], [address], [place] [address] [place] [id number] Department of Imaging Patient: SANDRO BUSTAMANTE Date: 04/19/19MR#: [id number] : 1980ADM Status: REG ERAcct#: [id number] Age/Sex: 39/FRoom/Bed: Loc: ED Ordering Physician: Negar Kennedy Family Physician: Vicki Lee MD Reason for Procedure: injury from fall Signed HUMERUS-LEFT - 04/19/2019 INDICATION: injury from fall TECHNIQUE: Two views COMPARISON: None FINDINGS: There is a displaced spiral fracture of the distal humerus shaft. This is displaced by about a centimeter. The elbow and shoulder appear intact. IMPRESSION: Displaced fracture of the distal humerus shaft. Electronically signed by Rito Gatica 04/19/2019 5:58 PM 04/19/191757 Interpreting Physician: Rito Gatica MD Dictated Date/Time: 04/19/191756 cc: Negar Kennedy; Vicki Lee MD) XRAY Interpretation: See note 2 XRAY: Left XRAY Study: Shoulder ([facility] - [address] [facility], [address], [place] [address] [place] [id number] Department of Imaging Patient: SANDRO BUSTAMANTE Date: 04/19/19MR#: [id number] : 1980ADM Status: REG ERAcct#: [id number] Age/Sex: 39/FRoom/Bed: Loc: ED Ordering Physician: Negar Kennedy Family Physician: Vicki Lee MD Reason for Procedure: shoulder pain from fall ___ Signed SHOULDER-LEFT - 04/19/2019 INDICATION: shoulder pain from fall TECHNIQUE: One view COMPARISON: None FINDINGS: The shoulder is intact. IMPRESSION: Negative exam. Electronically signed by Rito Gatica 04/19/2019 5:57 PM 04/19/191756 Interpreting Physician: Rito Gatica MD Dictated Date/Time: 04/19/191756 cc: Negar Kennedy; Vicki Lee MD) XRAY Interpretation: See note - CONSULTS/PCP/HOSPITALIST Notification #1 *Consult/PCP/Hospitalist*: Dr. Faust Time Discussed: 17:45 Reason/Comments: Consult Consult Disposition: other (He would prefer a femoral line and admit to the hospitilist) #2 Consult: Dr. Archer Time Discussed: 18:00 Reason/Comments: Consult Consult Disposition: other (Splint and he will look at her. He states he may send patient to the trauma ortho later.) #3 Consult: Dr. Maravilla Time Discussed: 19:32 Reason/Comments: Admission Consult Disposition: Will see in ED, Admit <Negar Kennedy - Last Filed: 04/19/19 19:32> - PLAN OF CARE/RESULTS Progress/Plan/Lab Results: Vital Signs - 8 hr 04/19/19 16:40 04/19/19 17:36 Temperature 98.1 F 98.6 F Pulse Rate 96 H 88 Respiratory Rate 24 16 Blood Pressure 156/103 O2 Sat by Pulse Oximetry 97 99 Laboratory Results - last 24 hr 04/19/19 04/19/19 04/19/19 16:44 17:25 17:25 WBC 5.42 RBC 4.08 L Hgb 11.5 L Hct 36.3 L MCV 89.0 MCH 28.2 MCHC 31.7 L RDW Std Deviation 18.5 H Plt Count 285 MPV 10.7 H Immature Gran % (Auto) 0.6 H Neut % (Auto) 73.3 Lymph % (Auto) 12.9 L Garrett % (Auto) 9.0 Eos % (Auto) 2.4 Baso % (Auto) 1.8 H Immature Gran # (Auto) 0.03 Neut # (Auto) 3.97 Lymph # (Auto) 0.70 L Garrett # (Auto) 0.49 Eos # (Auto) 0.13 Baso # (Auto) 0.10 Specimen Type Sample Site pH pCO2 pO2 HCO3 Base Excess Oxyhemoglobin ABG O2 Sat (Calculated) ABG O2 Saturation ABG Carboxyhemoglobin ABG Methemoglobin Brent Test A-a O2 Difference Total Hemoglobin Lactate FiO2 % POC Glucose 500 H Acetone Level NEGATIVE 04/19/19 17:45 WBC RBC Hgb Hct MCV MCH MCHC RDW Std Deviation Plt Count MPV Immature Gran % (Auto) Neut % (Auto) Lymph % (Auto) Garrett % (Auto) Eos % (Auto) Baso % (Auto) Immature Gran # (Auto) Neut # (Auto) Lymph # (Auto) Garrett # (Auto) Eos # (Auto) Baso # (Auto) Specimen Type ARTERIAL Sample Site R FEMORAL pH 7.39 pCO2 42 pO2 56 L HCO3 25.0 Base Excess 0.3 Oxyhemoglobin 89.7 L* ABG O2 Sat (Calculated) 14.8 L ABG O2 Saturation 92.3 L ABG Carboxyhemoglobin 1.60 ABG Methemoglobin 1.1 Brent Test YES A-a O2 Difference 41.0 Total Hemoglobin 11.7 Lactate 2.10 FiO2 % 21.0 POC Glucose Acetone Level Orders Category Date Time Status Saline Loc NOW Care 04/19/19 16:40 Active Shoulder Immobilizer DIRECTED Care 04/19/19 19:07 Active HUMERUS-LEFT [RAD] Stat Exams 04/19/19 16:46 Completed KUB ABDOMEN [RAD] Stat Exams 04/19/19 19:26 Taken SHOULDER-LEFT [RAD] Stat Exams 04/19/19 16:46 Completed ABG [RESP] Routine Lab 04/19/19 17:45 Completed ACETONE SERUM [CHEM] Stat Lab 04/19/19 17:25 Completed CBC WITH ELECTRONIC DIFF [HEME] Stat Lab 04/19/19 17:25 Completed COMPREHENSIVE METABOLIC PANEL [CHEM] Stat Lab 04/19/19 18:20 Ordered 0.9% Sodium Chloride Inj [Ns] 1,000 ml Med 04/19/19 19:04 Active IV 999 mls/hr Hydromorphone [Dilaudid] Med 04/19/19 17:54 Discontinued 1 mg IM NOW ONE Hydromorphone [Dilaudid] Med 04/19/19 16:41 Discontinued 1 mg IV NOW ONE Hydromorphone [Dilaudid] Med 04/19/19 19:24 Discontinued 1 mg IV NOW ONE Insulin Human Regular [Humulin R] Med 04/19/19 19:05 Discontinued 10 unit IV NOW ONE Ondansetron [Zofran] Med 04/19/19 17:54 Discontinued 4 mg IM NOW ONE Ondansetron [Zofran] Med 04/19/19 16:41 Discontinued 4 mg IV NOW ONE Discussed results and plan of care with patient. Patient agrees with plan and verbalizes understanding. (Negar Kennedy) Procedures - CENTRAL LINE Consent Form Signed?: Yes Time-Out Verification Completed?: Yes Central Line Lumen: triple Central Line Procedure Prep: Hand Hygeine Performed, Kit Utilized, Chloraprep, Sterile Body Drape Placed, Antibiotic-coated Catheter Used Patient Position (To prevent Air Embolism): Supine (Femoral) Central Line Position: femoral (R) Ultrasound Guided?: No Hat, mask, sterile gown, & sterile gloves worn by physician?: Yes Site scrubbed vigorously for 30 seconds? (Groin: 2 min): Yes Anesthetic: 1% Volume of Anesthetic (ml's): 10 Post Procedure: Sutured in place, Sterile field maintained, BioPatch placed, Sterile dressing applied, Blood aspirated from each lumen Complications: none <Ricky Salomon - Last Filed: 04/19/19 18:55> Departure <Ricky Salomon - Last Filed: 04/19/19 18:55> - Departure Date of Disposition Decision: 04/19/19 Time of Disposition Decision: 18:02 Certified Medical Emergency: Emergent - Critical Care Note This patient required my direct & personal management of CC.: No <Negar Kennedy - Last Filed: 04/19/19 19:32> - Departure DIAGNOSIS: End-stage renal disease on hemodialysis Diabetes type 1, uncontrolled Qualifiers: Glycemic state: with hyperglycemia Qualified Code(s): E10.65 - Type 1 diabetes mellitus with hyperglycemia Humerus distal fracture Qualifiers: Encounter type: initial encounter Fracture type: closed Fracture morphology: other fracture Fracture alignment: displaced Laterality: left Qualified Code(s): S42.492A - Other displaced fracture of lower end of left humerus, initial encounter for closed fracture Disposition: ADMITTED INPATIENT 09 Condition: Stable Referrals and Follow-Ups: Vicki Lee MD [Primary Care Provider] - Attestation - Physician/ SARAI Attestation The physician spent face to face time with patient:: Yes Advanced Practice Provider documentation review:: Supervising physician onsite and consulted in the evaluation and care of this patient. The physician did have a face to face encounter with the patient. <Ricky Salomon - Last Filed: 04/19/19 18:55> - Physician/ SARAI Attestation Patient care was provided by Advanced Practice Provider:: Yes Advanced Practice Provider:: Negar Kennedy Advanced Practice Provider documentation review:: The Mid-level provider documentation, treatment plan and medical decision making was reviewed by the physician who agrees with all treatment and medical decision making by the MLP. The physician spent face to face time with patient:: Yes Advanced Practice Provider documentation review:: Supervising physician onsite and consulted in the evaluation and care of this patient. The physician did have a face to face encounter with the patient. <Negar Kennedy - Last Filed: 04/19/19 19:32> This chart was documented by the indicated scribe, (Mami Lobo Scribe) and accurately reflects the services I performed and decisions made by Brent gomez J. Chris, CRNP, as attested by the provider's signature.
[2019-04-19 17:51] LABS: ALLEN TEST YES; BE 0.3 mmoll (-3.0-3.0); BLOOD TYPE ARTERIAL; METHB 1.1 % (0.0-1.5); O2(CT) 14.8 mL/dL (15.0-23.0); PCO2(98.6) 42 mmHg (35-45); PO2(98.6) 56 mmHg (60-100); SAMPLE BLOOD; SAO2 92.3 % (95.0-100.0); THB 11.7 g/dL (11.5-17.4); pH(98.6) 7.39 (7.35-7.45)
[2019-04-19 17:52] LABS: O2HB 89.7 % (95.0-99.0)
[2019-04-19] MEDS ORDERED: DILAUDID IM ONE (17:54)
[2019-04-19] MEDS ORDERED: ZOFRAN IM ONE (17:54)
[2019-04-19 17:57] LABS: BASO% 1.8 % (0.0-0.8); EOS# 0.13 X1000 (0.0-0.7); EOS% 2.4 % (0.0-10.0); HEMATOCRIT 36.3 % (37.0-47.0); HEMOGLOBIN 11.5 g/dL (12.0-16.0); IMM GRAN# 0.03 X1000 (0.0-0.04); IMM GRAN% 0.6 % (0.0-0.5); LYMPH% 12.9 % (20.5-51.1); MCH 28.2 PG (27-31); MCHC 31.7 g/dL (33-37); MONO# 0.49 X1000 (0.11-0.59); MPV 10.7 FL (7.4-10.4); NEUT# 3.97 X1000 (1.4-6.5); NEUT% 73.3 % (42.2-75.2); PLT 285 X1000 (130-400); RBC 4.08 XMIL (4.2-5.4); RDW 18.5 % (11.5-14.5); WBC 5.42 X1000 (4.8-10.8)
--- NOTE | 2019-04-19 18:00 | Diag Imaging Result Doc PS360 ---
HUMERUS-LEFT - 04/19/2019 INDICATION: injury from fall TECHNIQUE: Two views COMPARISON: None FINDINGS: There is a displaced spiral fracture of the distal humerus shaft. This is displaced by about a centimeter. The elbow and shoulder appear intact. IMPRESSION: Displaced fracture of the distal humerus shaft. Electronically signed by Rito Gatica 04/19/2019 5:58 PM
--- NOTE | 2019-04-19 18:00 | Diag Imaging Result Doc PS360 ---
SHOULDER-LEFT - 04/19/2019 INDICATION: shoulder pain from fall TECHNIQUE: One view COMPARISON: None FINDINGS: The shoulder is intact. IMPRESSION: Negative exam. Electronically signed by Rito Gatica 04/19/2019 5:57 PM
[2019-04-19] MEDS ORDERED: NS 1,000 ML IV ONE (19:04)
[2019-04-19] MEDS ORDERED: HUMULIN R IV ONE (19:05)
--- NOTE | 2019-04-19 19:58 | Diag Imaging Result Doc PS360 ---
KUB ABDOMEN - 04/19/2019 INDICATION: central line placement COMPARISON: 12/26/2018 FINDINGS: There is a right femoral central line in good position with the catheter tip in the region of the common iliac vein. No bowel obstruction or free air. IMPRESSION: Good right femoral line placement. Electronically signed by Rito Gatica 04/19/2019 7:55 PM
[2019-04-19 21:03] LABS: ALBUMIN 3.9 g/dL (3.5-5.0); CALCIUM 8.2 mg/dL (8.8-10.2); CREATININE 4.6 mg/dL (0.5-0.9); POTASSIUM 5.2 mmol/L (3.5-5.1); TOTAL BILIRUBIN 0.48 mg/dL (0.20-1.00); TOTAL PROTEIN 7.9 g/dL (6.3-8.3)
[2019-04-19] MEDS ORDERED: TYLENOL PO PRN (22:57)
[2019-04-19] MEDS ORDERED: BENADRYL PO ONE (22:57)
[2019-04-19] MEDS ORDERED: ZOFRAN IV PRN (22:57)
[2019-04-19] MEDS: KEPPRA PO SCH (23:29)
[2019-04-19] MEDS: DILANTIN PO SCH (23:29)
[2019-04-19] MEDS: DILAUDID IV PRN (23:30)
[2019-04-19] MEDS: REMERON PO SCH (23:36)
[2019-04-20] MEDS: DILAUDID IV PRN ×4 (02:51→22:55)
--- NOTE | 2019-04-20 02:59 | HISTORY AND PHYSICAL ---
PRIMARY CARE PHYSICIAN: Dr. Lee. AGING BOX HAND: Dr. Kay. DATE AND TIME: 04/19/2019 at 2130. CHIEF COMPLAINT: Fall with left arm pain. HISTORY OF PRESENT ILLNESS: Ms. Chaparro is a 39-year-old female with a past medical history most notable for diabetes mellitus, end-stage renal disease, on hemodialysis, diastolic heart failure, hypertension, and seizures. The patient reports that she was at work just prior to her arrival to the ER at [facility]. She states that she was walking to go get something out of her refrigerator and slipped on a piece of ice, which caused her to fall. She stated that she tried to catch her balance with her left arm, though did ultimately end up falling and landing on her left arm. After the fall, the patient was having severe left arm pain and did present to the ER for further evaluation. The patient denied feeling dizzy, lightheaded, any near-syncope, syncope, chest pain, or shortness of breath prior to her fall. She states that she did slip and fall. She denies any chest pain, shortness of breath, abdominal pain, any current nausea, vomiting, or diarrhea. The patient states, though, she does have occasional nausea, vomiting due to her history of gastroparesis, though states that she has not had any of these symptoms for the past few days. She does report that she produces a little bit of urine, though she denies any dysuria. She denies any pain in her extremities, except for in her left arm. She does report that she feels her legs are slightly swollen, though there is no edema present at this time. She denies any fever, body aches, or chills. Upon evaluation in the ER, they did perform a left humerus x-ray, which did show a displaced fracture of the distal humerus shaft. Shoulder x-ray was negative. They did consult Dr. Archer, Orthopedic surgery. Due to the patient having poor IV access, they did place a femoral central line. Placement was confirmed with x-ray, which did show good right femoral line placement. The patient will be placed for inpatient admission. REVIEW OF SYSTEMS: A 14-point review of systems was conducted with the patient, and all were negative except for pertinent positives mentioned in above HPI. PAST MEDICAL HISTORY: 1. End-stage renal disease on hemodialysis Mondays, Wednesdays, and Fridays. 2. Diabetes mellitus type 1. 3. Hypertension. 4. Seizure disorder. 5. Diastolic heart failure with a last known ejection fraction of 25%. 6. Chronic constipation. 7. Esophagitis and gastritis. 8. Gastroparesis. 9. History of CVA. PAST SURGICAL HISTORY: 1. Corneal transplant. 2. AV fistula in the right arm. 3. Cholecystectomy. 4. History of J-tube placement. SOCIAL HISTORY: There is no known history of tobacco, alcohol, or illicit drug use. The patient reports that she is currently employed and works at [employer]. FAMILY HISTORY: Positive for her mother having hypertension and diabetes mellitus. She states she does not know her father's history. ALLERGIES: Patient has no known drug allergies, though she states that she is allergic to adhesive tape. HOME MEDICATIONS: 1. Amlodipine 10 mg p.o. daily. 2. Biotin 1 mg p.o. every other day. 3. Epogen 10,000 units subcutaneous on Mondays, Wednesdays, and Fridays. 4. Keppra 750 mg p.o. b.i.d. 5. Lisinopril 40 mg p.o. daily. 6. Reglan 10 mg p.o. a.c. and at bedtime. 7. Remeron 45 mg p.o. at bedtime. 8. Multivitamin 1 p.o. daily. 9. Protonix 40 mg p.o. daily. 10. Dilantin 100 mg p.o. t.i.d. 11. Lantus 10 units subcutaneous daily. 12. The patient reports that she is supposed to take Lasix twice daily, though was unsure of the dose. 13. Also, she states that the labetalol that is on her home medication list, that she is no longer taking it at this time. DIAGNOSTIC DATA/LABORATORY RESULTS: White blood cell count is 5420, hemoglobin 11.5, hematocrit is 36.3, platelet count is 285,000. Sodium 135, potassium 5.2, chloride 97, serum bicarb is 28, anion gap is 10, BUN 42, creatinine 4.6, with a GFR of 13. Glucose was 505, calcium 8.2, total bilirubin is 0.48, AST 123, ALT 71, alkaline phosphatase is 459. Acetone level was negative. Dilantin level was 2.2. Arterial blood gases were obtained on room air, pH 7.39, pCO2 of 42, pO2 of 56, HCO3 is 25, base excess is 0.3, oxyhemoglobin is 89.7, O2 saturation was 92.3%. Left humerus x-ray showed a displaced fracture of the distal left humerus shaft. Left shoulder x- ray showed no acute abnormality. Abdominal x-ray for central line placement showed good right femoral line placement. PHYSICAL EXAMINATION: VITAL SIGNS: Temperature 97.7 degrees, heart rate 92, respirations 16, blood pressure is 139/84, oxygen saturation is 100% on room air. GENERAL: Ms. Chaparro is a pleasant 39-year-old female. She was resting in the ER stretcher. She was in no acute distress. She was awake, alert, and able to answer questions appropriately. HEENT: Head is atraumatic, normocephalic. Pupils are equal, round, reactive to light, were 2 mm bilaterally. Conjunctivae were pink. Oral mucosa is moist. Oropharynx is clear. NECK: Supple. Trachea midline. CARDIOVASCULAR: Patient has S1, S2 present. There is no murmurs, gallops, or rubs appreciated. PULMONARY: Patient has symmetrical chest expansion bilaterally. Lung sounds are clear to auscultation in bilateral full vail. ABDOMEN: Soft, nondistended, nontender. Bowel sounds are present in all 4 quadrants, were normoactive. EXTREMITIES: No cyanosis or edema present. Radial and pedal pulses were 2+ bilaterally. Pulse, motor and sensory is intact in all extremities. The patient does have AV graft noted to right upper arm and does have a good thrill present. INTEGUMENTARY: The patient's skin color is normal for her race, is warm and dry. NEUROLOGICAL: Patient is alert and oriented to person, place, time, and situation. She is able move all extremities. ASSESSMENT AND PLAN: 1. Left humeral fracture. The patient has had a left shoulder immobilizer placed at this time. She is reporting a little bit of pain at present as well. We will provide p.r.n. pain medication. She will be NPO after midnight, and we have placed a consult with Dr. Archer with Orthopedic surgery. We will await their evaluation and further recommendations for management. 2. Mechanical fall from a standing position. As previously mentioned in the above HPI, the patient did report slipping on a piece of ice and falling, injuring her left arm. 3. End-stage renal disease on hemodialysis. We have placed a consult with Dr. Kay. We will await his evaluation and further recommendations for management. 4. Diabetes mellitus type 1. The patient is known to be a brittle diabetic. She has just received 10 units of insulin IV in the ER for her elevated blood sugar. We will re-evaluate her response to this. The patient will be NPO after midnight as well. 5. Seizure disorder. We will continue her regularly prescribed seizure medications of Keppra and Dilantin. 6. Deep vein thrombosis prophylaxis will be provided with sequential compression devices. The patient has been placed on the surgical floor with telemetry. She will have vital signs q.4 hours. We will do strict intake and output, incentive spirometry. She will be NPO after midnight. We will repeat a CBC and renal profile in the morning. Further orders and recommendations pending hospital course, diagnostic studies, and physician evaluations. Dictated by MANNY Newberry for Moose Maravilla MD cc: Moose Maravilla MD ADD: Dr. Maravilla personally interviewed and examined the patient and discussed diagnosis and treatment plan with both the patient and the MANNY. The dictation by MANNY adequately reflects the findings and treatment plan [facility]
[2019-04-20 05:36] LABS: RBC 3.71 XMIL (4.2-5.4); WBC 6.84 X1000 (4.8-10.8)
[2019-04-20 05:37] LABS: BASO# 0.12 X1000 (0.0-0.2); BASO% 1.8 % (0.0-0.8); EOS# 0.22 X1000 (0.0-0.7); EOS% 3.2 % (0.0-10.0); HEMATOCRIT 32.8 % (37.0-47.0); HEMOGLOBIN 10.5 g/dL (12.0-16.0); IMM GRAN# 0.04 X1000 (0.0-0.04); IMM GRAN% 0.6 % (0.0-0.5); LYMPH# 1.42 X1000 (1.2-3.4); LYMPH% 20.8 % (20.5-51.1); MCH 28.3 PG (27-31); MCV 88.4 FL (81-99); MONO# 1.02 X1000 (0.11-0.59); MONO% 14.9 % (1.7-9.3); MPV 10.1 FL (7.4-10.4); NEUT# 4.02 X1000 (1.4-6.5); NEUT% 58.7 % (42.2-75.2); PLT 325 X1000 (130-400); RDW 18.4 % (11.5-14.5)
[2019-04-20 05:39] LABS: INR 1.15; PROTIME 14.9 Seconds (11.0-16.0); PTT 30.1 Seconds (22.3-41.8)
[2019-04-20 05:57] LABS: ALBUMIN 3.9 g/dL (3.5-5.0); CREATININE 4.5 mg/dL (0.5-0.9); PHOSPHORUS 2.2 mg/dL (2.7-4.5)
[2019-04-20] MEDS: HUMULIN R SUBQ SCH ×4 (06:49→22:28)
[2019-04-20] MEDS: REGLAN PO SCH ×4 (06:56→22:29)
[2019-04-20] MEDS ORDERED: NS 2,000 ML MISC PRN (07:08)
--- NOTE | 2019-04-20 09:51 | ORTHOPAEDICS CONSULTATION ---
DATE: 04/20/2019 SUBJECTIVE: Ms. Chaparro is seen in consultation for a left arm fracture. She has multiple medical problems as a dialysis patient with diabetes, hypertension, seizures, and heart failure. She fell apparently at home injuring her left arm. She complains of pain and tenderness about the left elbow. She is admitted by the hospitalist. PAST MEDICAL HISTORY: Significant for end-stage renal disease on hemodialysis, type 1 diabetes, hypertension, seizure disorder, heart failure with ejection fracture of 25%, esophagitis, gastroparesis, and history of CVA. PAST SURGICAL HISTORY: She is status post AV fistulas and cholecystectomy in the past. FAMILY HISTORY: Noncontributory. PHYSICAL EXAMINATION: Reveals crepitant's and tenderness of the left elbow and distal humerus. Compartments are soft. She appears to be motor and sensory intact. She is nontender about the shoulder and wrist. X-RAY: Reviewed show a distal humeral fracture roughly 2 to 3 cm above the joint line. ASSESSMENT: Left distal humeral fracture, closed. PLAN: The patient will be splinted. She can be discharged when she is medically cleared. She will need to follow up with 1 of my trauma partners in the near future for surgical fixation if she is a surgical candidate. She can follow up with us in the office next week. cc: Pop Archer MD
[2019-04-20] MEDS ORDERED: BENADRYL PO PRN (10:08)
[2019-04-20] MEDS: PERCOCET-5 PO PRN ×2 (10:20→18:30)
[2019-04-20] MEDS: PROTONIX PO SCH (10:28)
[2019-04-20] MEDS: CENTRUM TABLET PO SCH (10:29)
[2019-04-20] MEDS: KEPPRA PO SCH ×2 (10:29→22:27)
[2019-04-20] MEDS: EPOGEN SUBQ SCH (10:30)
[2019-04-20] MEDS: DILANTIN PO SCH ×4 (10:32→18:35)
[2019-04-20] MEDS: BENADRYL PO PRN ×2 (10:41→18:30)
--- NOTE | 2019-04-20 11:33 | PROGRESS NOTE ---
DATE: 04/20/2019 SUBJECTIVE: Patient reports still having excruciating pain in the left arm. OBJECTIVE: Vital Signs: Temperature 97.9, heart rate 93, respiratory rate 16, blood pressure 134/70, O2 saturation 98% on room air. General: This is a chronically ill- appearing, 39-year- old, female, lying in bed, in no acute distress. Cardiovascular: S1, S2 heart. No murmurs, gallops, or rubs. Regular rate and rhythm. Respiratory: Clear bilaterally to auscultation. No work of breathing. Not using accessory muscles. Abdomen: Soft, nontender to palpation. Bowel sounds present. No organomegaly. Abdomen: Soft, nontender to palpation. Nondistended. Bowel sounds present. No organomegaly. Extremities: No clubbing, cyanosis, or edema. Peripheral pulses present in both legs. The patient has an IV graft noted in the right upper arm. Neurological: Patient is alert and oriented x3. Able to move all 4 extremities except the left arm that is painful because of the fracture. LABORATORY DATA: Reviewed. ASSESSMENT AND PLAN: 1. Left humeral fracture. The patient has been evaluated by Dr. Archer. According to them, she can be discharged from his standpoint. She needs to be seen in the office in a week for surgical fixation as an outpatient if she is a surgical candidate. 2. Mechanical fall.- sition. Aware. 3. End-stage renal disease, on dialysis. Dr. Kay has been consulted for medical management regarding this condition. 4. Diabetes mellitus type 2. We will continue with sliding scale insulin, Accu- Chek before meals and also at bedtime. 5. Seizure disorder. We will continue with Keppra and Dilantin. 6. Disposition. I think this patient will stay today for trying to control her pain with oral medications. I think if this patient is feeling much better tomorrow, she can be safely discharged. cc: Jose Montero MD [facility]
--- NOTE | 2019-04-20 12:23 | NEPHROLOGY CONSULTATION ---
DATE: 04/20/2019 REASON FOR CONSULTATION: Management/treatment for end-stage renal disease. HISTORY OF PRESENT ILLNESS: Ms. Chaparro is a 39-year-old, woman who is well known to us. She has type 1 diabetes and end-stage kidney disease as well as seizure disorder. She states she fell at home and tried to catch herself with her left arm and had immediate excruciating pain and was unable to control her fall. She did not have a seizure by her estimation. The admission note states that she slipped on a piece of ice. She did not relate this to me. At any rate, she suffered a fracture of her left humerus. That is being managed currently with an mobilizing sling. She has been evaluated by Orthopedics and has a plan for surgical management. No chest pain, palpitations, shortness of breath. No nausea, vomiting, etc. Today is her dialysis day. PAST MEDICAL HISTORY: As above. She also has hypertension, peripheral vascular disease. HOME MEDICATIONS: Include 1. Erythropoietin. 2. Mirtazapine. 3. Clonidine. 4. Levetiracetam. 5. Pantoprazole. 6. Phenytoin. 7. Lisinopril. 8. Amlodipine. 9. Insulin. 10. Pravastatin. 11. Labetalol. 12. Metoclopramide. 13. Multivitamin. 14. Ondansetron. 15. Dicyclomine. 16. Promethazine. 17. Hydrocodone. ALLERGIES: Tape. SOCIAL HISTORY: She lives in [place] with her parents. She is actually currently working at [employer]. FAMILY HISTORY: Noncontributory. REVIEW OF SYSTEMS: Noncontributory. PHYSICAL EXAMINATION: Vital Signs: Blood pressure 134/70, heart rate 93, respiration 18, afebrile. General: No acute distress. She is in pain. Skin: Warm and dry. HEENT: Conjunctivae are pink. Pupils are equal. Oropharynx is dry. Neck: Neck veins are not distended. Heart: Regular. No gallops. Lungs: Equal. No crackles or wheezes. Abdomen: Soft, nontender. Bowel sounds are present. Extremities: Have no edema, clubbing or cyanosis. There is deformity and swelling and tenderness of the left upper arm. Neurologic: Grossly nonfocal. IMPRESSION: 1. Left humerus fracture. I appreciate the input of Orthopedics. 2. Chronic kidney disease 5D. She will have her routine dialysis today, but we will withhold heparin in anticipation of surgery. 3. Hypertension, in target. 4. Electrolytes/acid base, in target. 5. Diabetes. Improving under the care of Dr. Corral. cc: Hardy Kay MD
[2019-04-20] MEDS: NORVASC PO SCH (18:34)
[2019-04-20] MEDS: PRINIVIL PO SCH (18:36)
[2019-04-20] MEDS: REMERON PO SCH (22:27)
[2019-04-21] MEDS: PERCOCET-5 PO PRN (01:12)
[2019-04-21] MEDS: BENADRYL PO PRN ×4 (01:12→23:07)
[2019-04-21] MEDS: DILAUDID IV PRN ×4 (03:08→17:19)
[2019-04-21] MEDS: REGLAN PO SCH ×4 (06:23→22:34)
[2019-04-21 06:46] LABS: HEMATOCRIT 29.5 % (37.0-47.0); HEMOGLOBIN 9.3 g/dL (12.0-16.0); MCH 28.1 PG (27-31); MCHC 31.5 g/dL (33-37); MCV 89.1 FL (81-99); MPV 9.6 FL (7.4-10.4); RBC 3.31 XMIL (4.2-5.4); RDW 18.2 % (11.5-14.5); WBC 5.58 X1000 (4.8-10.8)
[2019-04-21] MEDS: HUMULIN R SUBQ SCH ×3 (07:00→17:18)
[2019-04-21 07:29] LABS: ALBUMIN 3.3 g/dL (3.5-5.0); CALCIUM 7.8 mg/dL (8.8-10.2); CREATININE 3.4 mg/dL (0.5-0.9); PHOSPHORUS 1.9 mg/dL (2.7-4.5); POTASSIUM 3.7 mmol/L (3.5-5.1)
[2019-04-21] MEDS: DILANTIN PO SCH ×3 (08:56→17:11)
[2019-04-21] MEDS: PROTONIX PO SCH (08:57)
[2019-04-21] MEDS: NORVASC PO SCH (08:57)
[2019-04-21] MEDS: PRINIVIL PO SCH (08:57)
[2019-04-21] MEDS: CENTRUM TABLET PO SCH (08:57)
[2019-04-21] MEDS: KEPPRA PO SCH ×2 (08:58→22:32)
[2019-04-21] MEDS ORDERED: SORBITOL PO ONE (09:32)
--- NOTE | 2019-04-21 11:27 | ORTHOPAEDICS PROGRESS NOTE ---
DATE: 04/21/2019 Ms. Chaparro is seen today. She has a temporary splint in place. Dr. Chapa, my partner, will be available to fix her arm possibly on Tuesday or Tuesday. If she is discharged home she will need to follow up with him in the office on Tuesday for surgical scheduling. If she remains as an inpatient through the weekend then he can possibly see her Tuesday to schedule surgery at some point early next week. cc: Pop Archer MD
[2019-04-21] MEDS ORDERED: SODIUM PHOSPHATE 40 MEQ in NS 250 ML IV ONE (12:30)
--- NOTE | 2019-04-21 13:20 | NEPHROLOGY PROGRESS NOTE ---
DATE: 04/21/2019 SUBJECTIVE: She is lying in bed. She is uncomfortable with her arm. She complains of constipation and requests sorbitol. OBJECTIVE: Vital Signs: Blood pressure 131/63, heart rate 88, respirations 17, afebrile. General: No acute distress. Skin: Warm and dry. Neck: Veins are not appreciated. Cardiovascular: Heart is regular with S4. Lungs: Equal. No crackles. Abdomen: Soft, nontender. Extremities: Trace edema. No clubbing or cyanosis. IMPRESSION: 1. Chronic kidney disease 5D. 2. Volume status/electrolytes/acid base in target. Hemoglobin has trended down but does not meet criteria for transfusion. We will provide sorbitol for constipation. Okay for discharge from my perspective. cc: Hardy Kay MD
[2019-04-21] MEDS: PATIENT'S OWN MED PO SCH (14:29)
--- NOTE | 2019-04-21 17:19 | PROGRESS NOTE ---
DATE: 04/21/2019 SUBJECTIVE: The patient has no major complaints. OBJECTIVE: Blood pressure 152/76, heart rate of 95, respiratory rate of 15, temperature 99.3 degrees, 96% on room air.Cardiovascular: Regular rate and rhythm. Pulmonary: Bilateral breath sounds. Clear to auscultation. GI: Soft, nontender, nondistended. Bowel sounds are positive. LABORATORY DATA: White count 5, hemoglobin and hematocrit 9, 29, platelets 287,000. Creatinine is down to 3.4, glucose of 105, phos of 1.9. PROBLEM LIST: 1. Left humeral fracture. Dr. Archer is following. They are not doing surgery at this time, possibly as an outpatient. 2. End-stage renal. She is on dialysis. We will continue to follow. 3. Type 2 diabetes. She has had frequent diabetic ketoacidosis issues in the past but is stable currently on her current medications. 4. Seizure disorder. She is stable on Keppra and Dilantin. 5. Disposition. Her pain is still not under great control. She is on a lot of medications. I am going to try to bump up her Percocet and see how she does but she will eventually have to go home hopefully within the next 24 hours. cc: Danny Castellanos MD
[2019-04-21] MEDS: PERCOCET-10 PO PRN (22:14)
[2019-04-21] MEDS: REMERON PO SCH (22:33)
[2019-04-22] MEDS: HUMULIN R SUBQ SCH ×5 (00:44→22:36)
[2019-04-22] MEDS: DILAUDID IV PRN ×3 (00:51→22:37)
[2019-04-22 05:53] LABS: HEMATOCRIT 32.2 % (37.0-47.0); HEMOGLOBIN 10.2 g/dL (12.0-16.0); MCH 28.7 PG (27-31); MCHC 31.7 g/dL (33-37); MCV 90.7 FL (81-99); MPV 9.7 FL (7.4-10.4); RBC 3.55 XMIL (4.2-5.4); RDW 18.4 % (11.5-14.5); WBC 6.05 X1000 (4.8-10.8)
[2019-04-22 07:09] LABS: ALBUMIN 3.6 g/dL (3.5-5.0); CREATININE 4.3 mg/dL (0.5-0.9); PHOSPHORUS 4.4 mg/dL (2.7-4.5); POTASSIUM 5.2 mmol/L (3.5-5.1)
[2019-04-22] MEDS: REGLAN PO SCH ×4 (07:45→22:37)
[2019-04-22] MEDS: PERCOCET-10 PO PRN ×2 (07:45→17:52)
[2019-04-22] MEDS: KEPPRA PO SCH ×2 (10:03→22:37)
[2019-04-22] MEDS: CENTRUM TABLET PO SCH (10:03)
[2019-04-22] MEDS: DILANTIN PO SCH ×3 (10:04→17:56)
[2019-04-22] MEDS: PROTONIX PO SCH (10:04)
[2019-04-22] MEDS: PRINIVIL PO SCH (10:04)
[2019-04-22] MEDS: NORVASC PO SCH (10:05)
[2019-04-22] MEDS: BENADRYL PO PRN ×2 (10:10→17:52)
--- NOTE | 2019-04-22 17:42 | PROGRESS NOTE ---
DATE: 04/22/2019 SUBJECTIVE: Patient has no major complaints. OBJECTIVE: Blood pressure 145/80, heart rate respiratory 16, temperature 98 degrees.Cardiovascular: Regular rate and rhythm. Pulmonary: Bilateral breath sounds, clear to auscultation. GI: Soft, nontender, nondistended. Bowel sounds are positive. LABORATORY DATA: White count 6, hemoglobin and hematocrit 10 and 32, platelets 287,000. Potassium 5.2, creatinine 4.3. PROBLEM LIST: 1. Left humeral fracture. Continue conservative treatment. She is still in pain. She is not getting up at all and she does not seem like the pain is under control. She is fairly high risk despite being 39. She is a dialysis patient. She has type 2 diabetes. I think it may be more prudent to do this while she is an inpatient just because of her high risk nature towards surgery, at least from my opinion. 2. End-stage renal. She is on dialysis. We will continue to monitor. 3. Type 2 diabetes. Work on blood sugar control perioperatively, which has been okay. She came in hyperglycemic and she is at least below the 150s now. 4. End-stage renal. She is on dialysis Tuesday, Tuesday, Tuesday which will be tomorrow. 5. Seizure disorder. She is on Keppra and Dilantin. DISPOSITION: Anticipate likely surgery tomorrow if stable. cc: Danny Castellanos MD
[2019-04-22] MEDS: REMERON PO SCH (22:37)
[2019-04-23] MEDS: PERCOCET-10 PO PRN ×2 (05:29→18:35)
[2019-04-23] MEDS: BENADRYL PO PRN ×2 (06:18→17:27)
[2019-04-23 06:30] LABS: HEMATOCRIT 32.7 % (37.0-47.0); HEMOGLOBIN 10.3 g/dL (12.0-16.0); MCH 28.7 PG (27-31); MCHC 31.5 g/dL (33-37); MCV 91.1 FL (81-99); MPV 9.9 FL (7.4-10.4); RBC 3.59 XMIL (4.2-5.4); RDW 18.7 % (11.5-14.5); WBC 5.46 X1000 (4.8-10.8)
--- NOTE | 2019-04-23 07:00 | ORTHOPAEDICS PROGRESS NOTE ---
DATE: 04/23/2019 Ms. Chaparro is seen for her supracondylar distal humerus fracture. We will plan on surgical fixation of this today. That will be by Dr. Chapa, possibly around 3 o'clock. I have discussed risks and benefits of the surgery to include ORIF of the left distal humerus with risks such as bleeding, infection, damage to tendon, nerve, or blood vessel, loss of limb or life, and no guarantees, and she is willing to proceed. We will proceed, pending medical clearance. Late afternoon with give them time to dialyze her if needed. She is currently NPO. cc: Pop Archer MD
[2019-04-23 07:01] LABS: ALBUMIN 3.6 g/dL (3.5-5.0); CALCIUM 8.2 mg/dL (8.8-10.2); CREATININE 6.7 mg/dL (0.5-0.9); PHOSPHORUS 4.7 mg/dL (2.7-4.5); POTASSIUM 5.6 mmol/L (3.5-5.1)
[2019-04-23] MEDS: HUMULIN R SUBQ SCH ×2 (07:08→11:26)
[2019-04-23] MEDS: REGLAN PO SCH ×3 (07:09→15:28)
[2019-04-23] MEDS ORDERED: HEPARIN IV PRN (07:48)
[2019-04-23] MEDS ORDERED: NS 2,000 ML MISC PRN (07:48)
[2019-04-23] MEDS ORDERED: TIGHT: 0.2 ML/HR FOR DIALYSIS MISC PRN (07:48)
[2019-04-23 07:59] VITALS: BP 142/75
[2019-04-23] MEDS: CENTRUM TABLET PO SCH (11:26)
[2019-04-23] MEDS: PATIENT'S OWN MED PO SCH (11:27)
[2019-04-23] MEDS: DILANTIN PO SCH ×2 (11:27→15:28)
[2019-04-23] MEDS: PROTONIX PO SCH (11:27)
[2019-04-23] MEDS: PRINIVIL PO SCH (11:27)
[2019-04-23] MEDS: NORVASC PO SCH (11:28)
[2019-04-23] MEDS: KEPPRA PO SCH (11:28)
--- NOTE | 2019-04-23 14:14 | NEPHROLOGY PROGRESS NOTE ---
DATE: 04/23/2019 SUBJECTIVE: Patient currently undergoing hemodialysis. She is to have surgery later this afternoon. OBJECTIVE: Vital Signs: Temperature 98 degrees, pulse 88, respiratory rate 16, blood pressure 142/75. Intake 940 mL, output not measured. General: This is a middle-aged female resting in bed. She complains of pain to her left arm. HEENT: Normocephalic, atraumatic. LUDWIG. Neck: Supple. No JVD. Cardiovascular: Regular rate and rhythm with a gallop. Pulmonary: She is clear bilaterally. She has decreased breath sounds but no wheeze or rales. Abdomen: Soft with positive bowel sounds. Extremities: She has trace lower extremity edema. Her left upper extremity remains in a brace. Her right upper extremity is currently cannulated to her fistula. Integumentary: Skin is warm and dry. LAB DATA: WBC of 5.4, hemoglobin 10.3, sodium 139, potassium 5.6, CO2 26, BUN 6.7. ASSESSMENT AND PLAN: 1. Chronic kidney disease 5D. Today is her routine dialysis day. Will dialyze her on a 2 K bath, UF to dry weight 3-1/2 hour treatment. Will hold her heparin secondary to surgery this afternoon. Given a order to the nurses to hold it. 2. Electrolytes, acid-base balance, anemia, see #1 for plan. 3. Fluid volume. She is not overloaded and will continue with her routine dialysis. 4. Left distal humerus fracture. Again she is to go surgery later today. Dictated by MANNY Ordonez for Hardy Kay MD Face to face encounter, data reviewed, discussed with Carl Fernandez on 04/23/19. I agree with the above assessment and plan of care. cc: Hardy Kay MD [facility]
[2019-04-23] MEDS: EPOGEN SUBQ SCH (14:22)
[2019-04-23] MEDS: DILAUDID IV PRN (16:35)
--- NOTE | 2019-04-23 17:46 | ORTHOPAEDICS PROGRESS NOTE ---
DATE: 04/23/2019 IMPRESSION: A 39-year-old female with a left distal third humeral shaft. We were planning on fixing this in the operating room today. However, after discussing the patient with Anesthesia, they felt she would be better treated at [facility] where they have cardiac anesthesia and Interventional Cardiology available, as the patient has significant medical history with ejection fraction of 25%. The patient was thus fed today and NPO status was discontinued. Discussed this with the hospitalist, Dr. Castellanos, who is going to work on transfer to [facility]. We also informed Dr. Gale, orthopedic traumatologist over at [facility] that the patient would be coming.
--- NOTE | 2019-04-24 05:15 | DISCHARGE SUMMARY ---
ADMISSION DATE: 04/19/2019 DISCHARGE DATE: 04/23/2019 DISCHARGE DIAGNOSES: 1. Distal left humeral spiral fracture due to fall. 2. End-stage renal dialysis Tuesday, Tuesday, Tuesday. 3. Type 2 diabetes, insulin dependent, poorly controlled. 4. Seizure disorder. 5. History of cerebrovascular accident. PROCEDURES: None. CONSULTATIONS: 1. Orthopedics, Dr. Archer. 2. Nephrology, Dr. Kay. HISTORY: Briefly, this is a 39-year-old female with diabetes, end-stage renal, diastolic and systolic heart failure who fell. Denies syncope, but she had a displaced fracture of the distal humeral shaft. Femoral central line had to be placed. She was evaluated by Dr. Archer the next day, who initially recommended that she could go home once she was medically cleared, but she was felt to be high risk. Her pain was also not controlled. She was not able to get up and around. She was maintained on her medications to try to control her pain. I watched her over the weekend until Dr. Archer could re-evaluate her. He felt that she could be discharged. However, I think she was a high risk patient because of her multiple comorbidities, and decided to pursue open reduction internal fixation by Dr. Chapa today, but Anesthesia had concerns about her concurrent medical problems including end-stage renal, diastolic and systolic heart failure, and that she would need more intense observation. In that setting, I did not feel it was safe to be done electively. Anesthesia did not feel that it was safe enough to do electively locally so we made arrangements to transfer her to [place] under the care of Dr. Palafxo, hospitalist. She will be evaluated orthopedics there for treatment. Further orders per hospitalist service. She is maintained on her current medications. Potassium is a little bit elevated at 5.6 today, but that was pre dialysis so we will continue to follow. cc: Danny [facility]ellanos [facility]
== END 2019-04-23 18:42 | disposition short-term general hospital (02) | DRG 562 ==
LOC: SUPCPDRO → ED 16:32 → SUATTDRO 21:34 → 4N 21:34
PROVIDERS: ATTEND Internal Medicine

== ENCOUNTER 2019-06-07 14:30 | Inpatient (IN) ==
[2019-06-07] MEDS ORDERED: ZOFRAN IV ONE (14:36)
[2019-06-07] MEDS ORDERED: NS 500 ML IV ONE (14:36)
--- NOTE | 2019-06-07 14:37 | PROVIDER DOCUMENTATION ---
HPI-Abdominal Pain/GI Problem - General Stated Complaint: N/V Time Seen by Provider: 06/07/19 14:33 Source: patient Allergies/Adverse Reactions: Patient Allergies Allergy/AdvReac Type Severity Reaction Status Date / Time adhesive Allergy RASH Verified 04/16/19 07:44 Home Medications: Home Medication List Medication Instructions Recorded Confirmed Last Taken Type Clonidine [Catapres] 0.2 mg PO DAILY #120 tab 01/26/18 06/07/19 06/07/19 Rx 0.2 MG Epoetin Yasir [Epogen] 10,000 unit SUBQ MoWeFr@0900 vial 01/26/18 06/07/19 06/07/19 Rx 90390 UNIT LISINOpril [Prinivil] 40 mg PO DAILY #30 tab 01/26/18 06/07/19 06/07/19 Rx 40 MG Mirtazapine [Remeron] 45 mg PO QHS #90 tab 01/26/18 06/07/19 06/07/19 Rx 45 MG Pantoprazole [Protonix] 40 mg PO DAILY #90 tab 01/26/18 06/07/19 06/07/19 Rx 40 MG Phenytoin [Dilantin] 100 mg PO TID #90 cap 01/26/18 06/07/19 06/07/19 Rx 100 MG Amlodipine [Norvasc] 10 mg PO DAILY #120 tab 05/17/18 06/07/19 06/07/19 Rx 10 MG Insulin Aspart [Novolog Flexpen] 0 unit SQ AC + HS PRN PRN 12/27/18 06/07/19 1 History 0 UNIT Pravastatin Sodium 80 mg PO HS 12/27/18 06/07/19 06/07/19 History 80 MG Labetalol [Trandate] 400 mg PO TID #180 tab 12/28/18 06/07/19 06/07/19 Rx 400 MG Multivitamin with Iron [One Daily 1 ea PO DAILY #100 tab 01/18/19 06/07/19 06/07/19 Rx with Iron] 1 EA Insulin Glargine,Hum.rec.anlog 10 unit SQ DAILY #0 03/21/19 06/07/19 06/07/19 Rx [Basaglar Kwikpen U-100] 10 UNIT Calcium Acetate 667 mg PO DAILY 04/30/19 06/07/19 06/07/19 History 667 MG Metoclopramide [Reglan] 5 mg PO AC + HS 04/30/19 06/07/19 06/07/19 History 5 MG - History of Present Illness-ABD Nature of Presenting Problems: 39yof presents to ED via EMS c/o N/V Quality of Pain: reports: none Severity in ED: reports: moderate Onset/Duration: reports: gradual, just prior to arrival Timing: reports: still present Activities at Onset: reports: none Exposure to sick contacts?: No Modifying Factors: improves with: eating Associated Symptoms: reports: vomiting Last BM: unsure Rectal Bleeding: reports: none Rectal Pain: reports: none Emesis Description: reports: clear Bruising or Bleeding Gums?: No Similar Symptoms Previously?: No Recently seen or treated by another doctor?: No Review of Systems - Adult - REVIEW OF SYSTEMS - ADULT Constitutional: reports: no symptoms reported Eyes: reports: no symptoms reported Ears, Nose, Mouth & Throat: reports: no symptoms reported Cardiovascular: reports: no symptoms reported Respiratory: reports: no symptoms reported Gastrointestinal: reports: see HPI, vomiting Genitourinary: reports: no symptoms reported Musculoskeletal: reports: no symptoms reported Integumentary: reports: no symptoms reported Neurological: reports: see HPI, seizure (in ED during exam) Psychiatric: reports: no symptoms reported Endocrine: reports: no symptoms reported Hematologic/Lymphatic: reports: no symptoms reported Allergic/Immunologic: reports: no symptoms reported All Other Systems: Reviewed and Negative Past History - Adult - PAST MEDICAL HISTORY-ADULT Review of Records: reports: Old Records Reviewed, Nursing Assessment Review, Medications Reviewed Major Childhood Illnesses: reports: denies history Cardiovascular: reports: CHF, HTN, hyperlipidemia, other (cardiomyopathy) Respiratory: reports: denies history Gastrointestinal: reports: GERD, other (gastroparesis, eroding esophagus) Obstetrical/Gynecological: reports: denies history Genitourinary: reports: dialysis (MWF), kidney disease Musculoskeletal: reports: denies history Neurological: reports: CVA, Seizures/Epilepsy Psychiatric: reports: anxiety Endocrine/Immune: reports: anemia, Diabetes Other Conditions: reports: cataract/glaucoma, other (VRE) - PRIOR SURGERIES/PROCEDURES Surgical/Procedure History: reports: colonoscopy, cholecystectomy, indwelling device (dialysis access), other (cataract removal; cornea transplant; lap; feeding tube) - PRIOR HOSPITALIZATIONS Prior Hospitalizations: reports: for other non-related - IMMUNIZATION STATUS Childhood Immunizations: See Nurse Assessment Flu Vaccine: See Nurse Assessment - FAMILY HISTORY Family History: reviewed, not pertinent - SOCIAL HISTORY Smoking: non-smoker Living Situation: family Physical Exam-General - PHYSICAL EXAM-ADULT Initial Vital Signs Reviewed: Yes - CONSTITUTIONAL General Appearance: alert, thin - EYES Eyes: PERRL/EOMI, pink conjunctivae - HEAD, EARS, NOSE, MOUTH & THROAT HENMT: normocephalic/atraumatic, normal ENT inspection, other (Dry mucous membranes) - NECK Neck: non-tender, full range of motion, supple, normal inspection. negative: me ningismus - RESPIRATORY Respiratory: chest non-tender, lungs clear, normal breath sounds - CARDIOVASCULAR Cardiovascular: normal peripheral pulses, regular rate, rhythm, no edema, no gallop, no JVD - GASTROINTESTINAL (ABDOMEN) Abdominal Exam: normal bowel sounds, non tender, soft, no organomegaly - LYMPHATIC Lymphatic: no adenopathy - MUSCULOSKELETAL Back Exam: normal inspection, no CVA tenderness, no vertebral tenderness Extremity: normal range of motion, non-tender, normal gait, normal inspection - SKIN Integumentary: normal color, warm/dry, other (poor skin turgor) - NEUROLOGIC Neurologic: electronic component processor II-XII nml as tested, grossly normal, no motor/sensory deficits - PSYCHIATRIC Psych/Mental Status: normal mood/affect, normal thought content, normal thought process, oriented x 3 Progress - PLAN OF CARE/RESULTS Progress/Plan/Lab Results: Orders Category Date Time Status ED: Urine Bedside ORDERED Care 06/07/19 14:36 Ordered Finger Stick Blood Sugar (ED) DIRECTED Care 06/07/19 14:36 Ordered AMYLASE [CHEM] Stat Lab 06/07/19 14:36 Uncollected CBC WITH DIFF [HEME] Stat Lab 06/07/19 14:36 Uncollected COMPREHENSIVE METABOLIC PANEL [CHEM] Stat Lab 06/07/19 14:36 Uncollected LIPASE [CHEM] Stat Lab 06/07/19 14:36 Uncollected URINALYSIS W/POSS RFLX CULT [URINALYSIS] Stat Lab 06/07/19 14:36 Uncollected Ns 500 ml IV Bolus X1 Med 06/07/19 14:36 Ordered 0.9% Sodium Chloride Inj [Ns] 500 ml IV 999 mls/hr Ondansetron [Zofran] Med 06/07/19 14:36 Once 4 mg IV NOW ONE Femoral stick for blood draw by me (SARATH CORREA) Result Diagrams: 06/07/19 16:51 06/07/19 16:51 - REASSESSMENT Reassessment #1 Time Reassessed: 15:08 (Called to BS due to pt seizing. Dr. Salomon @ BS also, he gave order for Ativan. Pt reportedly has a seizure history but has no accompanying medicine list/medical records/family. Seizure lasted approx 90 sec. Pt alert and post ictal on my exam.) Reassessment #2 Time Reassessed: 17:40 (Reviewed labs; awaiting CT head results.) Reassessment #3 Time Reassessed: 18:22 (Dr. Salomon spoke with Dr. Blum, who accepted pt for admit) - CONSULTS/PCP/HOSPITALIST Notification #1 *Consult/PCP/Hospitalist*: Kulwant Time Discussed: 18:12 Consult Disposition: Will see in ED, Admit Departure - Departure Date of Disposition Decision: 06/07/19 Time of Disposition Decision: 18:12 DIAGNOSIS: Gastroparesis, Seizure, Chronic renal disease Disposition: ADMITTED INPATIENT 09 Certified Medical Emergency: Emergent Condition: Stable Referrals and Follow-Ups: Vicki Lee MD [Primary Care Provider] - Discharge Education: Chronic Kidney Disease, Adult, [id number], Seizure, Adult, Gastroparesis - Critical Care Note This patient required my direct & personal management of CC.: Yes Attestation - Physician/ SARAI Attestation Patient care was provided by Advanced Practice Provider:: Yes Advanced Practice Provider:: Michaela Alcala Advanced Practice Provider documentation review:: The Mid-level provider documentation, treatment plan and medical decision making was reviewed by the physician who agrees with all treatment and medical decision making by the MLP. The physician spent face to face time with patient:: Yes Advanced Practice Provider documentation review:: Supervising physician onsite and consulted in the evaluation and care of this patient. The physician did have a face to face encounter with the patient.
[2019-06-07] MEDS ORDERED: ATIVAN ONE (15:10)
[2019-06-07] MEDS ORDERED: ATIVAN IV ONE ×2 (15:12→19:54)
--- NOTE | 2019-06-07 16:07 | Diag Imaging Result Doc PS360 ---
CHEST-1 VIEW - 06/07/2019 INDICATION: seizure, vomiting COMPARISON: 03/18/2019 FINDINGS: There is cardiomegaly and pulmonary vascular congestion. There are some hazy interstitial infiltrates in the lung bases suggesting trace pulmonary edema. No pneumothorax or pleural effusion. IMPRESSION: Cardiomegaly and trace interstitial pulmonary edema. Electronically signed by Rito Gatica 06/07/2019 4:05 PM
[2019-06-07 17:21] LABS: BASO# 0.06 X1000 (0.0-0.2); BASO% 0.6 % (0.0-0.8); EOS# 0.01 X1000 (0.0-0.7); EOS% 0.1 % (0.0-10.0); HEMOGLOBIN 11.2 g/dL (12.0-16.0); IMM GRAN# 0.02 X1000 (0.0-0.04); IMM GRAN% 0.2 % (0.0-0.5); LYMPH# 0.99 X1000 (1.2-3.4); LYMPH% 9.4 % (20.5-51.1); MCH 29.5 PG (27-31); MCV 92.1 FL (81-99); MONO# 1.05 X1000 (0.11-0.59); MPV 9.8 FL (7.4-10.4); NEUT# 8.37 X1000 (1.4-6.5); NEUT% 79.7 % (42.2-75.2); PLT 367 X1000 (130-400); RDW 22.1 % (11.5-14.5)
[2019-06-07 17:32] LABS: ALBUMIN 3.8 g/dL (3.5-5.0); CALCIUM 8.4 mg/dL (8.8-10.2); CREATININE 3.6 mg/dL (0.5-0.9); POTASSIUM 4.7 mmol/L (3.5-5.1); TOTAL BILIRUBIN 0.65 mg/dL (0.20-1.00); TOTAL PROTEIN 7.7 g/dL (6.3-8.3)
--- NOTE | 2019-06-07 18:29 | PROVIDER DOCUMENTATION ---
HPI-Critical Care - General Chief Complaint: Nausea/Vomiting Stated Complaint: N/V Time Seen by Provider: 06/07/19 14:33 Allergies/Adverse Reactions: Allergies Allergy/AdvReac Type Severity Reaction Status Date / Time adhesive Allergy RASH Verified 04/16/19 07:44 Home Medications: Home Medication List Medication Instructions Recorded Confirmed Last Taken Type Clonidine [Catapres] 0.2 mg PO DAILY #120 tab 01/26/18 06/07/19 06/07/19 Rx 0.2 MG Epoetin Yasir [Epogen] 10,000 unit SUBQ MoWeFr@0900 vial 01/26/18 06/07/19 06/07/19 [place] 67915 UNIT LISINOpril [Prinivil] 40 mg PO DAILY #30 tab 01/26/18 06/07/19 06/07/19 Rx 40 MG Mirtazapine [Remeron] 45 mg PO QHS #90 tab 01/26/18 06/07/19 06/07/19 Rx 45 MG Pantoprazole [Protonix] 40 mg PO DAILY #90 tab 01/26/18 06/07/19 06/07/19 Rx 40 MG Phenytoin [Dilantin] 100 mg PO TID #90 cap 01/26/18 06/07/19 06/07/19 Rx 100 MG Amlodipine [Norvasc] 10 mg PO DAILY #120 tab 05/17/18 06/07/19 06/07/19 Rx 10 MG Insulin Aspart [Novolog Flexpen] 0 unit SQ AC + HS PRN PRN 12/27/18 06/07/19 06/07/19 History 0 UNIT Pravastatin Sodium 80 mg PO HS 12/27/18 06/07/19 06/07/19 History 80 MG Labetalol [Trandate] 400 mg PO TID #180 tab 12/28/18 06/07/19 06/07/19 Rx 400 MG Multivitamin with Iron [One Daily 1 ea PO DAILY #100 tab 01/18/19 06/07/19 06/07/19 Rx with Iron] 1 EA Insulin Glargine,Hum.rec.anlog 10 unit SQ DAILY #0 03/21/19 06/07/19 06/07/19 Rx [Basaglar Kwikpen U-100] 10 UNIT Calcium Acetate 667 mg PO DAILY 09/10/1706/07/19 06/07/19 History 667 MG Metoclopramide [Reglan] 5 mg PO AC + HS 04/30/19 06/07/19 06/07/19 History 5 MG Review of Systems - Adult - REVIEW OF SYSTEMS - ADULT Constitutional: reports: no symptoms reported Past History - Adult - PAST MEDICAL HISTORY-ADULT Review of Records: reports: Old Records Reviewed Major Childhood Illnesses: reports: denies history Cardiovascular: reports: CHF, HTN, hyperlipidemia, other (cardiomyopathy) Respiratory: reports: denies history Gastrointestinal: reports: GERD, other (gastroparesis, eroding esophagus) Obstetrical/Gynecological: reports: denies history Genitourinary: reports: dialysis (MWF), kidney disease Musculoskeletal: reports: denies history Neurological: reports: CVA, Seizures/Epilepsy Psychiatric: reports: anxiety Endocrine/Immune: reports: anemia, Diabetes Other Conditions: reports: cataract/glaucoma, other (VRE) - PRIOR SURGERIES/PROCEDURES Surgical/Procedure History: reports: colonoscopy, cholecystectomy, indwelling device (dialysis access), other (cataract removal; cornea transplant; lap; feeding tube) - PRIOR HOSPITALIZATIONS Prior Hospitalizations: reports: for other non-related - IMMUNIZATION STATUS Childhood Immunizations: See Nurse Assessment Flu Vaccine: See Nurse Assessment - FAMILY HISTORY Family History: reviewed, not pertinent - SOCIAL HISTORY Smoking: non-smoker Living Situation: family Physical Exam-General - PHYSICAL EXAM-ADULT Initial Vital Signs Reviewed: Yes - CONSTITUTIONAL General Appearance: alert Progress - PLAN OF CARE/RESULTS Progress/Plan/Lab Results: Vital Signs - 8 hr 06/07/19 14:40 06/07/19 14:45 06/07/19 16:15 Temperature 98.2 F Pulse Rate 106 H 106 H 102 H Respiratory Rate 18 20 19 Blood Pressure 205/126 205/126 O2 Sat by Pulse Oximetry 99 94 L 96 06/07/19 16:30 06/07/19 16:45 06/07/19 16:53 Temperature Pulse Rate 103 H 104 H 102 H Respiratory Rate 20 11 L 17 Blood Pressure 185/94 O2 Sat by Pulse Oximetry 92 L 95 97 06/07/19 17:00 06/07/19 17:02 06/07/19 17:03 Temperature Pulse Rate 102 H 104 H 103 H Respiratory Rate 15 19 5 L Blood Pressure 183/107 O2 Sat by Pulse Oximetry 96 95 97 06/07/19 18:00 Temperature Pulse Rate 103 H Respiratory Rate 11 L Blood Pressure 219/118 O2 Sat by Pulse Oximetry 98 Bedside Urine ED: Urine Bedside Start: 06/07/19 14:36 Freq: ORDERED Status: Cancelled Protocol: Activity Type Activity Date Activity User E-Sign Co-Sign Detail Recorded Client Recorded Date Recorded By Edit Status 06/07/19 15:26 [id number] Active=>Cancelled [id number] 06/07/19 15:26 [id number] Laboratory Results - last 24 hr 06/07/19 06/07/19 06/07/19 14:47 16:51 16:51 WBC 10.50 RBC 3.80 L Hgb 11.2 L Hct 35.0 L MCV 92.1 MCH 29.5 MCHC 32.0 L RDW Std Deviation 22.1 H Plt Count 367 MPV 9.8 Immature Gran % (Auto) 0.2 Neut % (Auto) 79.7 H Lymph % (Auto) 9.4 L Cedar % (Auto) 10.0 H Eos % (Auto) 0.1 Baso % (Auto) 0.6 Immature Gran # (Auto) 0.02 Neut # (Auto) 8.37 H Lymph # (Auto) 0.99 L Cedar # (Auto) 1.05 H Eos # (Auto) 0.01 Baso # (Auto) 0.06 Sodium 137 Potassium 4.7 Chloride 93 L Carbon Dioxide 29 Anion Gap 15 BUN 33 H Creatinine 3.6 H Estimated GFR/1.73 m2 17 BUN/Creatinine Ratio 9 Glucose 289 H POC Glucose 318 H Calculated Osmolality 292 Calcium 8.4 L Total Bilirubin 0.65 AST 32 H ALT 34 Alkaline Phosphatase 457 H Troponin T Total Protein 7.7 Albumin 3.8 Globulin 3.9 Albumin/Globulin Ratio 1.0 Amylase 55 Lipase 4 L Plasma Lactate Serum , Qual Total Phenytoin 06/07/19 06/07/19 06/07/19 16:51 16:51 16:51 WBC RBC Hgb Hct MCV MCH MCHC RDW Std Deviation Plt Count MPV Immature Gran % (Auto) Neut % (Auto) Lymph % (Auto) Cedar % (Auto) Eos % (Auto) Baso % (Auto) Immature Gran # (Auto) Neut # (Auto) Lymph # (Auto) Cedar # (Auto) Eos # (Auto) Baso # (Auto) Sodium Potassium Chloride Carbon Dioxide Anion Gap BUN Creatinine Estimated GFR/1.73 m2 BUN/Creatinine Ratio Glucose POC Glucose Calculated Osmolality Calcium Total Bilirubin AST ALT Alkaline Phosphatase Troponin T 0.094 H Total Protein Albumin Globulin Albumin/Globulin Ratio Amylase Lipase Plasma Lactate 2.2 Serum , Qual NEGATIVE Total Phenytoin 06/07/19 16:51 WBC RBC Hgb Hct MCV MCH MCHC RDW Std Deviation Plt Count MPV Immature Gran % (Auto) Neut % (Auto) Lymph % (Auto) Cedar % (Auto) Eos % (Auto) Baso % (Auto) Immature Gran # (Auto) Neut # (Auto) Lymph # (Auto) Cedar # (Auto) Eos # (Auto) Baso # (Auto) Sodium Potassium Chloride Carbon Dioxide Anion Gap BUN Creatinine Estimated GFR/1.73 m2 BUN/Creatinine Ratio Glucose POC Glucose Calculated Osmolality Calcium Total Bilirubin AST ALT Alkaline Phosphatase Troponin T Total Protein Albumin Globulin Albumin/Globulin Ratio Amylase Lipase Plasma Lactate Serum , Qual Total Phenytoin 1.70 L Orders Category Date Time Status Finger Stick Blood Sugar (ED) DIRECTED Care 06/07/19 14:36 Completed CHEST-1 VIEW [RAD] Stat Exams 06/07/19 15:[address] HEAD W/O CONTRAST [CT] Stat Exams 06/07/19 15:09 Taken AMYLASE [CHEM] Stat Lab 06/07/19 16:51 Completed BLOOD CULTURE [BLDCUL] Stat Lab 06/07/19 16:51 Ordered CBC WITH DIFF [HEME] Stat Lab 06/07/19 16:51 Completed COMPREHENSIVE METABOLIC PANEL [CHEM] Stat Lab 06/07/19 16:51 Completed Dilantin [PHENYTOIN] [TDM] Stat Lab 06/07/19 16:51 Completed LACTATE, PLASMA [CHEM] Stat Lab 06/07/19 16:51 Completed LIPASE [CHEM] Stat Lab 06/07/19 16:51 Completed TEST-SERUM [PREG] Stat Lab 06/07/19 16:51 Completed TROPONIN T Stat Lab 06/07/19 16:51 Completed 0.9% Sodium Chloride Inj [Ns] 500 ml Med 06/07/19 14:36 Discontinued IV 999 mls/hr Lorazepam [Ativan] Med 06/07/19 15:10 Discontinued 2 mg .ROUTE .STK-MED ONE Lorazepam [Ativan] Med 06/07/19 15:12 Discontinued 2 mg IV NOW ONE Ondansetron [Zofran] Med 06/07/19 14:36 Discontinued 4 mg IV NOW ONE Result Diagrams: 06/07/19 16:51 06/07/19 16:51 Departure - Departure Date of Disposition Decision: 06/07/19 Time of Disposition Decision: 18:30 DIAGNOSIS: Gastroparesis, Seizure, Chronic renal disease Disposition: ADMITTED INPATIENT 09 Certified Medical Emergency: Emergent Condition: Stable Referrals and Follow-Ups: Vicki Lee MD [Primary Care Provider] - Discharge Education: Chronic Kidney Disease, Adult, [id number], Seizure, Adult, Gastroparesis - Critical Care Note This patient required my direct & personal management of CC.: Yes Total Time (mins): 45 Critical Care Statement: This patient required my direct personal management to treat or rule out processes, the absence of which, could potentiallly result in sudden, clinically significant life or limb threatening deterioration. Attestation - Physician/ SARAI Attestation Patient care was provided by Advanced Practice Provider:: Yes Advanced Practice Provider:: Michaela Alcala Advanced Practice Provider documentation review:: The Mid-level provider documentation, treatment plan and medical decision making was reviewed by the physician who agrees with all treatment and medical decision making by the [facility]. The physician spent face to face time with patient:: Yes (Dr. Salomon coexamined pt.) Advanced Practice Provider documentation review:: Supervising physician onsite and consulted in the evaluation and care of this patient. The physician did have a face to face encounter with the patient.
--- NOTE | 2019-06-07 18:30 | Diag Imaging Result Doc PS360 ---
CT HEAD W/O CONTRAST - 06/07/2019 INDICATION: Seizure COMPARISON: 03/18/2019 FINDINGS: There is no intracranial mass or hemorrhage. The skull is intact. The sinuses are clear. IMPRESSION: No acute disease or change from prior. This exam was performed using automated exposure control, adjustment of mA or kV according to patient size, and/or use of iterative reconstruction technique Electronically signed by Rito Gatica 06/07/2019 6:28 PM
--- NOTE | 2019-06-07 19:08 | HISTORY AND PHYSICAL ---
HISTORY OF PRESENT ILLNESS: This is a 39-year-old, patient of Dr. Vicki Lee. This is a 39- year-old who is on dialysis. Stated that yesterday at dialysis, she had a little seizure, and she felt nauseated really through yesterday evening and through most of the day, threw up a couple of times. She came into the emergency room because of nausea. Denies fever or chills, but has just diffuse abdominal discomfort, and she did state she saw some blood in the emesis, and then she had a seizure in the emergency room. REVIEW OF SYSTEMS: General: No weight gain or loss. No fever or chills. HEENT: Unremarkable. No change in vision or hearing acuity. She does have a history of seizures, had two seizures in the last 24 hours, one during dialysis by report, and one here in the emergency room witnessed by the staff. Gastrointestinal: Nausea. No diarrhea or constipation. Genitourinary: No gross hematuria or dysuria. She is on dialysis, makes very little urine. Endocrinologic/hemologic: No significant history. Musculoskeletal/Neurologic: No focal complaints. PAST MEDICAL HISTORY: 1. End-stage renal disease, chronic kidney disease stage 5D, on hemodialysis Mondays, Wednesdays, and Fridays. 2. Diabetes mellitus type 1. 3. Hypertension. 4. Seizure disorder. 5. Diastolic heart failure with ejection fraction of 25%. 6. Chronic constipation. 7. Esophagitis and gastritis. 8. Gastroparesis. 9. History of CVA. PAST SURGICAL HISTORY: 1. Corneal transplant. 2. AV fistula in the right arm. 3. Cholecystectomy. 4. History of J-tube placement. SOCIAL HISTORY: No known history of tobacco, alcohol, or illicit drugs. The patient reports that she was employed and used to work at [employer]. FAMILY HISTORY: Positive for mother having hypertension and diabetes mellitus. Does not know about her father's history. ALLERGIES: She has no known drug allergies. She is allergic to adhesive tape, topical dermatitis, I guess. PHYSICAL EXAMINATION: GENERAL: In the emergency room, she is awake. She is a little bit sleepy, but she is alert, oriented, answers questions appropriately. Says her abdomen is still uncomfortable and still has some nausea. VITAL SIGNS: Temperature 98.2 degrees, pulse 103, respirations 11, blood pressure has been running high at 219/118. HEENT: Pupils are equal and round. Oral and nasal mucosa unremarkable. Conjunctivae pink. Sclerae clear. NECK: Supple. No thyromegaly. No lymphadenopathy. CVP less than 6 cm. CARDIOVASCULAR: Regular rhythm and rate without murmur or S3. Appears to be in sinus rhythm. Blood pressure running high. ABDOMEN: Soft, nondistended, but she reports it is uncomfortable just all over her abdomen. SKIN: Warm and dry. No sign of rashes. HEIGHT: Five feet 3 inches. LABORATORY AND DIAGNOSTIC DATA: White count 10,500, hematocrit is 35, platelet count is 367,000. Sodium 137, potassium 4.7, chloride 93, BUN 33, creatinine 3.6. Her calcium was 8.4. AST is 32, ALT is 34. Serum test was negative. Amylase was 55, lipase was 4. Phenytoin Level/Dilantin level was 1.70, which is low. Head CT without contrast: No acute disease or change. No sign of intracranial bleed. Chest x-ray: Cardiomegaly, trace interstitial pulmonary edema. ASSESSMENT AND PLAN: 1. Nausea. She has a history of gastritis and history of gastroparesis. She has underlying type 1 diabetes. Note that her sugars was 289, so it was not low. Her osmolality was 292. We will give her some Reglan for nausea and have her on clear liquids for now, but have her on a proton pump inhibitor. At home, she is on Protonix 40 mg, will put 40 mg and give her high dose twice a day. 2. She has history of seizures. We will go ahead and give her 300 of Dilantin now, and then continue her 100 mg p.o. t.i.d. Her Dilantin level was low. 3. Chronic kidney disease stage 5D. Electrolytes look pretty good. Her volume status looks pretty good. 4. Accelerated hypertension. This may be secondary to the nausea, but continue her medications for blood pressure. 5. Diabetes mellitus type 1. We will get patterned sugars and follow her sugars closely. We will check a thyroid. We also need to check her magnesium level, check a cortisol level in the morning. We will check cardiac enzymes as well, but plan to admit her, observe her tonight. cc: Brent Blum MD
[2019-06-07] MEDS ORDERED: TYLENOL PO ONE (19:54)
[2019-06-07] MEDS ORDERED: DILANTIN PO ONE (21:19)
[2019-06-08] MEDS: PRAVACHOL PO SCH ×2 (02:14→19:59)
[2019-06-08] MEDS: NORVASC PO SCH ×2 (02:14→08:49)
[2019-06-08] MEDS: PROTONIX PO SCH ×3 (02:14→20:00)
[2019-06-08] MEDS: CATAPRES PO SCH ×2 (02:14→08:49)
[2019-06-08] MEDS: REMERON PO SCH ×3 (02:15→23:00)
[2019-06-08] MEDS ORDERED: PHENERGAN PR ONE (02:46)
[2019-06-08] MEDS: TRANDATE PO SCH ×4 (04:16→23:01)
[2019-06-08] MEDS ORDERED: TIGHT: 0.2 ML/HR FOR DIALYSIS MISC PRN (06:48)
[2019-06-08] MEDS ORDERED: HEPARIN IV PRN (06:48)
[2019-06-08] MEDS ORDERED: NS 2,000 ML MISC PRN (06:48)
--- NOTE | 2019-06-08 07:04 | EKG Report ---
Test Performed on : 06/08/2019 06:47:11 AM Test Reason : chest pain Blood Pressure : / mmHG Vent. Rate : 083 BPM Atrial Rate : 083 BPM P-R Int : 166 ms QRS Dur : 080 ms QT Int : 454 ms P-R-T Axes : 058 044 258 degrees QTc Int : 533 ms Normal sinus rhythm. Nonspecific T wave abnormality Prolonged QT Abnormal ECG When compared with ECG of 18-MAR-2019 12:04, (Unconfirmed) Questionable change in QRS axis Nonspecific T wave abnormality now evident in Inferior leads T wave inversion now evident in Lateral leads Confirmed by Moose Maravilla MD ([id number]) on 06/10/2019 9:41:34 PM
[2019-06-08] MEDS: TYLENOL PO PRN ×3 (07:21→23:14)
--- NOTE | 2019-06-08 08:17 | Diag Imaging Result Doc PS360 ---
EXAM: CHEST-PORTABLE HISTORY: seizure TECHNIQUE: Portable chest COMPARISON: 06/07/2019 FINDINGS: Poor inspiratory effort. The heart is enlarged. There is pulmonary edema. This is more prominent than on the prior study. No pleural effusions identified. IMPRESSION: Worsening pulmonary edema Electronically signed by Brayan Wooten 06/08/2019 8:15 AM
[2019-06-08 08:43] LABS: BASO# 0.05 X1000 (0.0-0.2); BASO% 0.6 % (0.0-0.8); EOS# 0.02 X1000 (0.0-0.7); EOS% 0.2 % (0.0-10.0); HEMATOCRIT 32.3 % (37.0-47.0); HEMOGLOBIN 10.3 g/dL (12.0-16.0); IMM GRAN# 0.02 X1000 (0.0-0.04); IMM GRAN% 0.2 % (0.0-0.5); LYMPH# 0.72 X1000 (1.2-3.4); MCH 29.6 PG (27-31); MCHC 31.9 g/dL (33-37); MCV 92.8 FL (81-99); MONO# 0.59 X1000 (0.11-0.59); MONO% 6.5 % (1.7-9.3); NEUT# 7.64 X1000 (1.4-6.5); NEUT% 84.5 % (42.2-75.2); PLT 331 X1000 (130-400); RBC 3.48 XMIL (4.2-5.4); RDW 22.1 % (11.5-14.5); WBC 9.04 X1000 (4.8-10.8)
[2019-06-08] MEDS: DILANTIN PO SCH ×3 (08:49→19:59)
[2019-06-08] MEDS: PHOSLO PO SCH (08:49)
[2019-06-08] MEDS: PRINIVIL PO SCH (08:49)
[2019-06-08 08:57] LABS: HEMOGLOBIN A1C 8.6 % (4.8-6.0)
[2019-06-08 09:13] LABS: ANISOCYTOSIS 1+; HYPOCHROM 2+; LYMPHS 4 % (21-51); MONO 4 % (1-9); SEGS 92 % (42-75)
[2019-06-08 09:44] LABS: ALB/GLOB RATIO 1.1; ALBUMIN 3.7 g/dL (3.5-5.0); CALCIUM 8.1 mg/dL (8.8-10.2); CREATININE 4.6 mg/dL (0.5-0.9); MAGNESIUM 2.3 mg/dL (1.5-2.7); POTASSIUM 5.1 mmol/L (3.5-5.1); TOTAL BILIRUBIN 0.59 mg/dL (0.20-1.00)
--- NOTE | 2019-06-08 12:09 | PROGRESS NOTE ---
DATE: 06/08/2019 SUBJECTIVE: She had no further seizures and no further nausea. Is feeling better. We were not able to get an IV access so she is going for dialysis this morning. OBJECTIVE: Vital Signs: Temperature 98 degrees, pulse 80, respirations 11, blood pressure 176/79. HEENT: Pupils are equal round. Lungs: Clear in all lung vail. Cardiovascular: Regular rhythm and rate without murmur or S3. Abdomen: Soft. Skin: Warm and dry. ASSESSMENT AND PLAN: 1. History of gastritis and history of gastroparesis. My suspicion is she got nauseated and the Dilantin level may have dwindled down. She is feeling better. We will go ahead and get her dialysis done today and talk to Dr. Kay. She may be able to go home. 2. History of seizure. She is on Dilantin. We gave her a 300 mg p.o. bolus yesterday. 3. Chronic kidney disease stage 5D. Continue hemodialysis. 4. Accelerated hypertension. Put her back on her blood pressure medicines. Blood pressure seemed to be little better. 5. Diabetes mellitus type 1. Sugars appear to be under reasonable control although they are above 200. cc: Brent Blum MD
[2019-06-08] MEDS: PHENERGAN PO PRN ×2 (15:44→23:14)
--- NOTE | 2019-06-08 16:29 | Diag Imaging Result Doc PS360 ---
ABDOMEN FLAT/UPRIGHT - 06/08/2019 INDICATION: n/v, distention COMPARISON: 04/19/2019 FINDINGS: There is a nonobstructive bowel gas pattern. No free air or abdominal calcifications. There are stable cholecystectomy clips. No constipation. IMPRESSION: No acute disease. Electronically signed by Rito Gatica 06/08/2019 4:27 PM
--- NOTE | 2019-06-08 17:20 | NEPHROLOGY CONSULTATION ---
DATE: 06/08/2019 REASON FOR CONSULTATION: Assistance with management. Chronic kidney disease 5D. HISTORY OF PRESENT ILLNESS: Ms. Chaparro is a 39-year-old, woman who is well known to us. She has type 1 diabetes, and receives dialysis Tuesday, Tuesday, Tuesday. She also has a seizure disorder, hypertension and systolic heart failure. She had a recent seizure and has had problems with ongoing nausea and vomiting, ultimately leading her to come to the emergency room for evaluation. No change in shortness of breath. She has general malaise but no other specific complaints at this time. PHYSICAL EXAMINATION: Vital Signs: Blood pressure 176/79, heart rate 70, respirations 16,afebrile. General: No acute distress. Chronically ill-appearing. Skin: Warm and dry. Extremities: Have no edema, clubbing or cyanosis. Abdomen: Soft, nontender. Diminished bowel sounds but somewhat firm. IMPRESSION: 1. Chronic kidney disease 5D. She will have her routine dialysis treatment today. 2. Electrolytes/acid base/anemia in target. 3. Hypertension above target but we will continue current regimen. 4. Nausea, vomiting, abdominal discomfort. We will check flat and upright abdominal films but no other evaluation. 5. Symptomatic management. cc: Hardy Kay MD MTDD
[2019-06-08] MEDS ORDERED: MORPHINE IM ONE (23:58)
[2019-06-09] MEDS: PHENERGAN PO PRN (04:46)
[2019-06-09] MEDS: TYLENOL PO PRN (04:47)
[2019-06-09 07:21] LABS: CALCIUM 8.3 mg/dL (8.8-10.2); CREATININE 3.3 mg/dL (0.5-0.9); POTASSIUM 5.8 mmol/L (3.5-5.1)
[2019-06-09] MEDS ORDERED: HUMULIN R SUBQ SCH (08:30)
[2019-06-09] MEDS: TRANDATE PO SCH ×3 (08:36→20:30)
[2019-06-09] MEDS: CATAPRES PO SCH (08:36)
[2019-06-09] MEDS: PRINIVIL PO SCH (08:36)
[2019-06-09] MEDS: PROTONIX PO SCH ×2 (08:36→20:30)
[2019-06-09] MEDS: PHOSLO PO SCH (08:36)
[2019-06-09] MEDS: DILANTIN PO SCH ×3 (08:36→20:30)
[2019-06-09] MEDS: NORVASC PO SCH (08:37)
[2019-06-09] MEDS ORDERED: GAVISCON LIQUID PO PRN (09:10)
[2019-06-09] MEDS ORDERED: HUMULIN R ONE ×2 (09:13→10:58)
[2019-06-09] MEDS ORDERED: NS 1,000 ML IV SCH (09:15)
[2019-06-09] MEDS ORDERED: REGLAN IM ONE (09:20)
[2019-06-09 09:41] LABS: INR 1.5; PROTIME 18.4 Seconds (11.0-16.0)
--- NOTE | 2019-06-09 10:21 | PROGRESS NOTE ---
DATE: 06/09/2019 SUBJECTIVE: Ms. Chaparro still has nausea. She can't eat much, early satiety, and she feels bad. Her stomach is bothering her. She is asking for Gaviscon. We did give her a little bit of morphine last night. I think we can continue that for a bit. She is very uncomfortable. We are going to need to get an IV access. It looks like she is diabetic ketoacidosis. OBJECTIVE: Vital signs: Temp 98.1 degrees, pulse 81, respirations 16, blood pressure 142/106. HEENT: Pupils are equal round. Lungs: Lungs are clear in all lung vail. Cardiovascular: Regular rate without murmur or S3. Abdomen: Abdomen is soft, distended. Extremities: No pedal edema. DIAGNOSTIC DATA: Blood sugars sequential was 212, 291, 500, 668. Looking at her lab, sodium 130, potassium 5.8, chloride 85, bicarb 10, anion gap is 35, BUN is 30, creatinine is 3.3, blood sugar last was 668, calcium 8.3. ASSESSMENT AND PLAN: 1. Appears to be in diabetic ketoacidosis. We are going to need to give her fluids. We will put a PICC line in. Run sodium at normal saline at 85 mL an hour, and we will give her some IM insulin now and keep her on a subcu sliding scale. 2. Chronic kidney disease stage 5D. Her mouth is dry. We are going to have to give her some fluids back. We may need to dialyze her. Her potassium is up, and I think that is because of the ketoacidosis, and hopefully will this with fluid and insulin. 3. Hypertension, aware. Continue her current blood pressure medications. 4. Nausea and vomiting. I think it is a combination of gastroparesis and gastritis. She is on Protonix 40 mg p.o. twice a day. I will give her Reglan. I think we are going to need to give her Reglan IV 10 mg q.6 hours for a bit and see if we can get her stomach emptying. cc: Brent Blum MD MTDD
[2019-06-09 10:31] LABS: CALCIUM 8.2 mg/dL (8.8-10.2); CREATININE 3.4 mg/dL (0.5-0.9); POTASSIUM 5.9 mmol/L (3.5-5.1)
[2019-06-09 10:32] LABS: ALLEN TEST YES; BE -13.8 mmoll (-3.0-3.0); BLOOD TYPE ARTERIAL; HCO3-(ACT) 14.1 mmoll (20.0-26.0); METHB 0.5 % (0.0-1.5); O2(CT) 14.5 mL/dL (15.0-23.0); O2HB 95.6 % (95.0-99.0); PCO2(98.6) 24 mmHg (35-45); PO2(98.6) 90 mmHg (60-100); SAMPLE BLOOD; SAO2 97.4 % (95.0-100.0); THB 10.7 g/dL (11.5-17.4); pH(98.6) 7.28 (7.35-7.45)
[2019-06-09 10:34] LABS: MODALITY ROOM AIR
[2019-06-09] MEDS ORDERED: HUMULIN R 100 UNIT in NS 100 ML IV SCH ×2 (11:45→12:00)
[2019-06-09] MEDS ORDERED: NS 250 ML ONE (11:57)
[2019-06-09] MEDS ORDERED: D50W SYRINGE IV PRN (12:00)
[2019-06-09] MEDS: NS 1,000 ML IV SCH (13:09)
[2019-06-09 13:15] LABS: CALCIUM 8.2 mg/dL (8.8-10.2); CREATININE 3.7 mg/dL (0.5-0.9); MAGNESIUM 2.1 mg/dL (1.5-2.7); POTASSIUM 4.2 mmol/L (3.5-5.1)
[2019-06-09] MEDS: REGLAN IV SCH ×3 (16:20→22:45)
[2019-06-09 17:10] LABS: CALCIUM 7.9 mg/dL (8.8-10.2); CREATININE 3.9 mg/dL (0.5-0.9); MAGNESIUM 1.9 mg/dL (1.5-2.7); PHOSPHORUS 2.2 mg/dL (2.7-4.5); POTASSIUM 3.7 mmol/L (3.5-5.1)
[2019-06-09] MEDS: D5 1/2 NS 1,000 ML IV SCH (18:16)
[2019-06-09] MEDS: MORPHINE IV PRN (20:28)
[2019-06-09] MEDS: PRAVACHOL PO SCH (20:30)
[2019-06-09] MEDS: REMERON PO SCH (20:30)
[2019-06-09 21:37] LABS: CALCIUM 7.9 mg/dL (8.8-10.2); CREATININE 3.9 mg/dL (0.5-0.9); MAGNESIUM 1.9 mg/dL (1.5-2.7); PHOSPHORUS 2.1 mg/dL (2.7-4.5); POTASSIUM 3.6 mmol/L (3.5-5.1)
[2019-06-10 01:44] LABS: CALCIUM 7.4 mg/dL (8.8-10.2); CREATININE 4.2 mg/dL (0.5-0.9); MAGNESIUM 1.9 mg/dL (1.5-2.7); PHOSPHORUS 2.4 mg/dL (2.7-4.5)
[2019-06-10] MEDS: REGLAN IV SCH ×4 (04:26→21:14)
[2019-06-10] MEDS: D5 1/2 NS 1,000 ML IV SCH ×2 (04:29→07:22)
[2019-06-10 06:52] LABS: CALCIUM 7.3 mg/dL (8.8-10.2); CREATININE 3.9 mg/dL (0.5-0.9); MAGNESIUM 1.9 mg/dL (1.5-2.7); PHOSPHORUS 2.6 mg/dL (2.7-4.5); POTASSIUM 3.8 mmol/L (3.5-5.1)
[2019-06-10] MEDS: NS 1,000 ML IV SCH ×2 (07:22→10:52)
--- NOTE | 2019-06-10 08:08 | PROGRESS NOTE ---
DATE: 06/10/2019 SUBJECTIVE: Ms. Chaparro feels better. Nausea is better. She wants to try some soft diet so we will try that today. OBJECTIVE: Temperature 98.2 degrees, pulse 74, respirations 16, blood pressure 150/87. Pupils are equal and round. Lungs are clear in all lung vail. Cardiovascular Examination: Regular rhythm and rate without murmur or S3. Abdomen is soft. Skin is warm and dry. ASSESSMENT AND PLAN: 1. Diabetic ketoacidosis. Her sodium is 135, potassium 3.8, chloride 95, bicarb is 17, BUN 17, creatinine 3.9. Blood sugars 130, 167, 208, and 186. We will advance her to a soft diet. Right now, she is getting D5 1/2 at 85 mL an hour. She does feel better. Her abdominal x-ray from the was unremarkable. Her abdomen is soft. 2. Chronic kidney disease stage 5D. Continue dialysis. Volume status and electrolytes look good. 3. Hypertension. Blood pressure is under good control, so it seems to be heading in the right direction. 4. We are going to transition her to subcutaneous insulin, do a soft diet, and see how we do. cc: Brent Blum MD
[2019-06-10] MEDS: PHOSLO PO SCH (08:11)
[2019-06-10] MEDS: PRINIVIL PO SCH (08:11)
[2019-06-10] MEDS: PROTONIX PO SCH ×2 (08:11→21:14)
[2019-06-10] MEDS: NORVASC PO SCH (08:11)
[2019-06-10] MEDS: DILANTIN PO SCH ×3 (08:11→21:14)
[2019-06-10] MEDS: CATAPRES PO SCH (08:11)
[2019-06-10] MEDS: TRANDATE PO SCH ×3 (08:11→21:14)
[2019-06-10] MEDS: MORPHINE IV PRN ×2 (08:12→17:07)
[2019-06-10 09:39] LABS: CALCIUM 7.4 mg/dL (8.8-10.2); CREATININE 4.2 mg/dL (0.5-0.9); MAGNESIUM 1.9 mg/dL (1.5-2.7); PHOSPHORUS 2.3 mg/dL (2.7-4.5); POTASSIUM 3.7 mmol/L (3.5-5.1)
[2019-06-10 13:45] LABS: ALLEN TEST YES; BE 2.3 mmoll (-3.0-3.0); BLOOD TYPE ARTERIAL; HCO3-(ACT) 26.7 mmoll (20.0-26.0); METHB 0.8 % (0.0-1.5); O2(CT) 13.9 mL/dL (15.0-23.0); O2HB 93.5 % (95.0-99.0); PCO2(98.6) 43 mmHg (35-45); PO2(98.6) 74 mmHg (60-100); SAMPLE BLOOD; SAO2 96.1 % (95.0-100.0); THB 10.5 g/dL (11.5-17.4); pH(98.6) 7.41 (7.35-7.45)
[2019-06-10 13:46] LABS: MODALITY ROOM AIR
[2019-06-10 13:48] LABS: CALCIUM 7.3 mg/dL (8.8-10.2); CREATININE 4.5 mg/dL (0.5-0.9); MAGNESIUM 1.9 mg/dL (1.5-2.7); PHOSPHORUS 2.8 mg/dL (2.7-4.5); POTASSIUM 3.6 mmol/L (3.5-5.1)
[2019-06-10] MEDS: HUMULIN R SUBQ SCH ×2 (15:46→20:21)
[2019-06-10] MEDS: REMERON PO SCH (21:14)
[2019-06-10] MEDS: PRAVACHOL PO SCH (21:14)
[2019-06-11] MEDS: HUMULIN R SUBQ SCH ×5 (00:58→20:19)
[2019-06-11] MEDS: REGLAN IV SCH ×4 (03:42→20:19)
[2019-06-11] MEDS: MORPHINE IV PRN ×2 (05:05→20:38)
[2019-06-11] MEDS ORDERED: NS 2,000 ML MISC PRN (06:16)
[2019-06-11] MEDS ORDERED: HEPARIN IV PRN (06:16)
[2019-06-11] MEDS ORDERED: TIGHT: 0.2 ML/HR FOR DIALYSIS MISC PRN (06:16)
[2019-06-11] MEDS ORDERED: D50W SYRINGE IV SCH (08:30)
[2019-06-11] MEDS ORDERED: D50W SYRINGE IV PRN (08:30)
[2019-06-11] MEDS: DILANTIN PO SCH ×3 (08:39→20:19)
--- NOTE | 2019-06-11 09:14 | PROGRESS NOTE ---
DATE: 06/11/2019 SUBJECTIVE: Ms. Chaparro is feeling better. No nausea. She is tolerating her eating. Going to go to dialysis. Her sugars did drop a little low today. Remains afebrile. OBJECTIVE: Temperature 98.2 degrees, pulse 77, respirations 16, blood pressure 106/60. Pupils are equal and round. Lungs are clear in all lung vail. Cardiovascular Examination: Regular rhythm and rate without murmur or S3. Abdomen is soft. Skin is warm and dry. ASSESSMENT AND PLAN: 1. Diabetic ketoacidosis, appears to have resolved. Her bicarb yesterday was 27. No further nausea. Sugars have dipped down a little bit. We will keep her on a sliding scale. 2. Chronic kidney disease stage 5D, for dialysis today. Volume status looks good. If she does okay today and eating okay, hopefully can go home tomorrow. 3. History of seizures. That is the reason she came in. She has a history of gastroparesis. She is on her Dilantin. She has not had any further seizures while she is here. 4. Suspect some underlying gastritis, so I think we will keep her on Protonix high dose for 4 weeks and then go down to 40 mg a day after that. We have stopped her fluid. She is eating. cc: Brent Blum MD
[2019-06-11] MEDS: PROTONIX PO SCH ×2 (09:19→20:19)
[2019-06-11] MEDS: TRANDATE PO SCH ×3 (09:19→20:18)
--- NOTE | 2019-06-11 09:43 | NEPHROLOGY PROGRESS NOTE ---
DATE: 06/11/2019 SUBJECTIVE: She is awake, alert, feeling much better. She has been able to eat. She is complaining of some pain with swallowing. OBJECTIVE: Vital signs: Blood pressure 112/61 heart rate 77, respirations 14, afebrile. General: No acute distress. Skin is warm and dry. Conjunctivae are pink. Neck veins are not distended. Cardiovascular: Heart is regular. Lungs are equal. No crackles. Abdomen: Soft, nontender. Bowel sounds present. Extremities: No edema clubbing or cyanosis. IMPRESSION: 1. Chronic kidney disease 5D. She will have her routine hemodialysis today. 2. Recent diabetic ketoacidosis. Resolved. Anion gap 11. Please remove PICC line as soon as possible. 3. Odynophagia. I will add gastrointestinal cocktail. cc: Hardy Kay MD MTDD
[2019-06-11] MEDS: NORVASC PO SCH (13:22)
[2019-06-11] MEDS: PRINIVIL PO SCH (13:22)
[2019-06-11] MEDS: PHOSLO PO SCH (13:22)
[2019-06-11] MEDS: CATAPRES PO SCH (13:22)
[2019-06-11] MEDS: G.I. COCKTAIL PO PRN (13:26)
[2019-06-11] MEDS: PRAVACHOL PO SCH (20:19)
[2019-06-11] MEDS: REMERON PO SCH (20:19)
[2019-06-12] MEDS: REGLAN IV SCH ×3 (03:18→13:14)
[2019-06-12] MEDS: HUMULIN R SUBQ SCH ×5 (06:10→20:58)
[2019-06-12] MEDS: MORPHINE IV PRN ×2 (06:15→22:07)
[2019-06-12] MEDS: PHOSLO PO SCH (08:03)
[2019-06-12] MEDS: DILANTIN PO SCH ×3 (08:03→20:57)
[2019-06-12] MEDS: PROTONIX PO SCH ×2 (08:03→20:57)
[2019-06-12] MEDS: PRINIVIL PO SCH (08:03)
[2019-06-12] MEDS: CATAPRES PO SCH (08:03)
[2019-06-12] MEDS: NORVASC PO SCH (08:03)
[2019-06-12] MEDS: TRANDATE PO SCH ×3 (08:03→20:56)
[2019-06-12] MEDS: G.I. COCKTAIL PO PRN ×3 (08:04→17:03)
--- NOTE | 2019-06-12 10:03 | NEPHROLOGY PROGRESS NOTE ---
DATE: 06/12/2019 Subjective: Young black female lying in bed denies any shortness of breath, orthopnea, nausea and vomiting, decreased appetite, or weakness to extremities. Objective: Vital signs. Temp 97.7, pulse 87, respiration 16, blood pressure 107/70, 02 sat 96% on room air. General: young black female lying in bed and no acute distress. Skin: warm and dry, no rashes or lesions noted. Neck: Sample no JVD appreciated. Cardiovascular: S1, S2, regular rate and rhythm. No murmurs or gallops. Enlarged PMI noted. Lungs: clear breath sounds with equal excursion bilaterally no crackles or wheezes noted. Abdomen: soft, nontender, nondistended. Bowel sounds present. Extremities: no edema, clubbing, or cyanosis. Graft to left upper arm with palpable pulses. : not observed Neurological: alert and oriented to person, place, and time. Labs: intake 1220, output 3000. Impression: 1.Chronic kidney disease stage 5D. She had her routine dialysis yesterday. Nausea and vomiting is better today. She complains of discharge from her nipples and tenderness. We will check a prolactin level. OK for discharge from my perspective. 2. Blood pressure. Stable. 3. Fluid volume status. Euvolemic on exam. 4. She complains of breast tenderness and discharge. Will check Prolactin level. cc: Hardy Kay MD MTDD
[2019-06-12] MEDS ORDERED: LANTUS INSULIN SUBQ SCH (12:45)
--- NOTE | 2019-06-12 13:15 | PROGRESS NOTE ---
DATE: 06/12/2019 SUBJECTIVE: Patient has no major complaints. OBJECTIVE: Blood pressure 112/64, heart rate of 83, respiratory rate of 12, temperature 97.6 degrees, 99% on room air.Cardiovascular: Regular rate and rhythm. Pulmonary: Bilateral breath sounds clear to auscultation. GI: Soft, nontender, nondistended. Bowel sounds are positive. PROBLEM LIST: 1. DKA. Her sugars have been somewhat variable since yesterday. She bottomed out yesterday in the 20s, but now her sugars this morning were 446, but she has not been getting her regular Lantus. I guess she bottomed out yesterday so maybe why but I will restart that. I still think she could possibly go home. 2. Galactorrhea. Prolactin levels been analyzed and then we will also we will check a prolactin level. It is very unlikely that she is , but she is of age. We will check a serum beta HCG because I am not sure if she is really able to produce enough urine for a valid test. 3. Seizure disorder. We will continue treatment and follow closely. cc: Danny Castellanos MD
[2019-06-12] MEDS: LANTUS INSULIN SUBQ SCH (16:59)
[2019-06-12] MEDS: PRAVACHOL PO SCH (20:57)
[2019-06-12] MEDS: REMERON PO SCH (20:57)
[2019-06-13] MEDS: REGLAN IV SCH ×2 (02:01→12:34)
[2019-06-13 05:41] LABS: ALBUMIN 3.5 g/dL (3.5-5.0); PHOSPHORUS 1.9 mg/dL (2.7-4.5); POTASSIUM 5.1 mmol/L (3.5-5.1)
[2019-06-13] MEDS ORDERED: TIGHT: 0.2 ML/HR FOR DIALYSIS MISC PRN (06:13)
[2019-06-13] MEDS ORDERED: NS 2,000 ML MISC PRN (06:13)
[2019-06-13] MEDS ORDERED: HEPARIN IV PRN (06:13)
[2019-06-13] MEDS: HUMULIN R SUBQ SCH ×3 (06:43→16:05)
[2019-06-13] MEDS: PROTONIX PO SCH (08:08)
[2019-06-13] MEDS: PHOSLO PO SCH (08:51)
[2019-06-13] MEDS: PRINIVIL PO SCH (08:52)
[2019-06-13] MEDS: NORVASC PO SCH (08:52)
[2019-06-13] MEDS: TRANDATE PO SCH ×3 (08:52→18:28)
[2019-06-13] MEDS: CATAPRES PO SCH (08:52)
[2019-06-13] MEDS: DILANTIN PO SCH ×3 (08:53→18:28)
[2019-06-13] MEDS: LANTUS INSULIN SUBQ SCH (08:56)
--- NOTE | 2019-06-13 08:59 | NEPHROLOGY PROGRESS NOTE ---
DATE: 06/13/2019 TIME SEEN: 0705. SUBJECTIVE: Ms. Chaparro is resting quietly in bed. States that she is feeling just slightly better. Denies any chest pain or increased work of breathing. Stiffness to the left arm. OBJECTIVE: Vital Signs: Temperature 97.4 degrees, blood pressure 121/73, heart rate 80, respirations 14. She is on room air. Last recorded saturation 100%. She has had 960 in. She has had 0 recorded out. Labs: Sodium is 134, potassium 5.1, chloride 97, CO2 24, BUN 36, creatinine 5, glucose 297. Her anion gap is 13. Her calcium is 8, phosphorus 1.9, albumin is 3.5. Previous hemoglobin 10.3, hematocrit 32.3. PHYSICAL EXAMINATION: General: This is a 39-year-old -[place] female resting quietly in bed. She appears chronically ill, in no acute distress. Skin: Warm and dry. HEENT: Normocephalic, atraumatic. Conjunctiva is pale pink. She has LUDWIG. Mucous membranes are dry. Neck: Supple. Trachea midline. No evidence of JVD. Cardiovascular: Regular rate and rhythm. Lungs: Clear to auscultation bilaterally. Equal excursion on room air. Abdomen: Soft, round, nontender. Positive bowel sounds. Genitourinary: Not inspected. Minimal void with dialysis assist. Extremities: Have no edema. No clubbing or cyanosis. Graft to the left upper arm with palpable pulse and good thrill. Stiffness is noted over her left elbow up into the left upper arm below her scar tissue. Neurological: She is alert and oriented x3. ASSESSMENT AND PLAN: 1. Chronic kidney disease stage 5D. The patient is due for her routine dialysis treatment today. We will place her on a 2-K bath. She is to dialyze for 3.5 hours. We will plan to pull patient to her outpatient dry weight. 2. Electrolytes and acid-base balance with correction on dialysis. 3. Anemia. This is low but stable. 4. Nausea and vomiting. This has improved. 5. Breast tenderness and discharge. Elevated prolactin. We will review her treatment before formulating a plan. rg I would like to thank you for allowing us to follow with this patient. Dictated by MANNY Hatch for Hardy Kay MD Face to face encounter, data reviewed, discussed with Gerri Fitzgerald on 06/13/19. I agree with the above assessment and plan of care. cc: MANNY Hatch MD MTDD
[2019-06-13] MEDS ORDERED: HEMOCYTE PLUS CAPSULE PO SCH (09:00)
[2019-06-13] MEDS: MORPHINE IV PRN (09:04)
[2019-06-13] MEDS: PHENERGAN PO PRN (09:04)
--- NOTE | 2019-06-13 11:47 | Diag Imaging Result Doc PS360 ---
EXAM: MRI BRAIN W/O CONTRAST 06/13/2019 HISTORY: pituitary adenoma TECHNIQUE: T1 sagittal, axial, axial T2, FLAIR, DWI and coronal gradient echo. Sella turcica sagittal and axial T1. COMMENT: The pituitary is not enlarged and there is no evidence of suprasellar mass. There is periventricular white matter hyperintensity on T2. 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 There is no evidence of restricted diffusion. There is no evidence of bleed or mass effect. No previous MRI studies are available for comparison. IMPRESSION: No evidence of sellar or suprasellar mass. 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 Chronic ischemic microvascular white matter changes. Electronically signed by Issa Castro 06/13/2019 11:44 AM
[2019-06-13 12:19] VITALS: BP 104/56
--- NOTE | 2019-07-16 06:29 | DISCHARGE SUMMARY ---
ADMISSION DATE: 06/07/2019 DISCHARGE DATE: 06/13/2019 DISCHARGE DIAGNOSES: 1. Diabetic ketoacidosis. 2. Galactorrhea. 3. Seizure disorder. 4. End-stage renal disease. HOSPITAL COURSE: Briefly this is a 39-year-old female with multiple issues who came in for seizure, nausea. She was made inpatient. She had nausea with gastroparesis, so she was placed on Protonix and antiemetics. She was maintained on her Dilantin. Blood pressure medications were adjusted and she slowly improved. Nausea was felt to be due to possible Dilantin toxicity. Nephrology was consulted for management of her kidney disease and dialysis. Plain films were obtained which were unremarkable. Patient slowly improved. She was placed on IV fluids with a PICC line. She was placed on Reglan, Protonix, and improved. She was transitioned to subcutaneous insulin and maintained on treatments but overall improved. On the , she still had some variable sugars in the 40s and 400s. She also had galactorrhea. She had a brain MRI that did not show any evidence of suprasellar mass or prolactinoma despite elevated prolactin level. Anyway, on the she was felt stable for discharge with close follow-up. DISCHARGE MEDICATIONS: 1. Calcium acetate 667 daily. 2. NovoLog a.c. and bedtime based on carb count. 3. Pravastatin 80. 4. Remeron 45. 5. Catapres 0.2 daily. 6. Diflucan 200 daily. 7. Dilantin 100 t.i.d. 8. Dulcolax p.r.n. 9. Elavil 10 daily. 10. Epogen daily. 11. Erythromycin. 12. Lantus 15 daily. 13. Norvasc 10 daily. 14. Iron daily. 15. Lisinopril 40 daily. 16. Protonix 40 b.i.d. 17. Trandate 400 t.i.d. DISCHARGE CONDITION: Stable. DISCHARGE TIME: 32 minutes. cc: MD Vicki Becker MD Alexis R. Penot, MD
== END 2019-06-13 18:45 | disposition home or self-care (01) | DRG 637 ==
LOC: SUPCPDRO → ED 14:30 → SUATTDRO 20:45 → ICU 20:45 → 1N 06-12 23:35
PROVIDERS: ATTEND Internal Medicine

== ENCOUNTER 2019-06-21 12:12 | Inpatient (IN) ==
[2019-06-21] MEDS: NS 1,000 ML IV ONE ×2 (12:42→15:15)
[2019-06-21] MEDS: ZOFRAN IV ONE ×2 (12:42→15:14)
--- NOTE | 2019-06-21 12:45 | PROVIDER DOCUMENTATION ---
HPI-General Adult - General Chief Complaint: High Blood Sugar Stated Complaint: VOMITING BLACK Time Seen by Provider: 06/21/19 12:35 Source: patient Allergies/Adverse Reactions: Patient Allergies Allergy/AdvReac Type Severity Reaction Status Date / Time adhesive Allergy RASH Verified 06/21/19 13:26 Home Medications: Home Medication List Medication Instructions Recorded Confirmed Last Taken Type Clonidine [Catapres] 0.2 mg PO DAILY #120 tab 01/26/18 06/21/19 06/20/19 Rx Epoetin Yasir [Epogen] 10,000 unit SUBQ MoWeFr@0900 vial 01/26/18 06/21/19 06/20/19 Rx LISINOpril [Prinivil] 40 mg PO DAILY #30 tab 01/26/18 06/21/19 06/20/19 Rx Mirtazapine [Remeron] 45 mg PO QHS #90 tab 01/26/18 06/21/19 06/20/19 Rx Pantoprazole [Protonix] 40 mg PO DAILY #90 tab 01/26/18 06/21/19 06/20/19 Rx Phenytoin [Dilantin] 100 mg PO TID #90 cap 01/26/18 06/21/19 06/20/19 Rx Amlodipine [Norvasc] 10 mg PO DAILY #120 tab 05/17/18 06/21/19 06/20/19 Rx Insulin Aspart [Novolog Flexpen] 0 unit SQ AC + HS PRN PRN 12/27/18 06/21/19 06/20/19 History Pravastatin Sodium 80 mg PO HS 12/27/18 06/21/19 06/20/19 History Labetalol [Trandate] 400 mg PO TID #180 tab 12/28/18 06/21/19 06/20/19 Rx Multivitamin with Iron [One Daily 1 ea PO DAILY #100 tab 01/18/19 06/21/19 06/20/19 Rx with Iron] Insulin Glargine,Hum.rec.anlog 10 unit SQ DAILY #0 03/21/19 06/21/19 06/20/19 Rx [Basaglar Kwikpen U-100] Calcium Acetate 667 mg PO DAILY 04/30/19 06/21/19 06/20/19 History Metoclopramide [Reglan] 5 mg PO AC + HS 04/30/19 06/21/19 06/20/19 History - History of Present Illness -Gen Adult Nature of Presenting Problems: Pt. kayli.s 39 yof that presents to the ED with c/o N/V and states she is a diabetic and that her sugar is high. Pt. reports her last normal BM was yesterday. She states she is in severe pain. Location of Pain/Injury: reports: abdomen. denies: none, head, face, mouth, neck, chest, upper extremity, hand(s), back, pelvis, genitalia, lower extremity, feet, upper body, lower body, generalized, other Pain Radiation: reports: no radiation. denies: arm(s), back, buttocks, chest, epigastric, feet, groin, jaw, flank (L), legs (lower), LLQ, LUQ, neck, periumbilical, flank (R), RLQ, RUQ, shoulder(s), scapula, scrotal, sternal notch, suprapubic, legs (upper), urethral, vaginal, other Quality of Pain: reports: aching. denies: burning, pressure, tightness Severity: reports: moderate. denies: mild, severe Onset/Duration: reports: gradual, 24 hours ago Timing: reports: still present. denies: improving, resolved prior to arrival, getting worse Context/Activities at Onset: reports: none. denies: light activity, moderate activity, vigorous activity, recent emotional stress, recent physical stress, recent trauma history, possible bad food, cold exposure, eating, out of country travel, rest, sleep, sexual activity, other Modifying Factors: improves with: nothing Associated Symptoms: reports: nausea, vomiting. denies: denies symptoms, anxiety, arm pain, back/neck pain, chest pain, constipation, cough, diaphoresis, diarrhea, dizziness, EENT symptoms, fatigue, fever/chills, genitourinary problems, headaches, heartburn, joint pain, loss of appetite, malaise, muscle aches, sinus congestion/drainage, rash, seizure, shortness of breath, sensory/motor loss, pain with inspiration, swelling/mass in abdomen, syncope, weakness, trouble walking, other Similar Symptoms Previously?: Yes Recently seen or treated by another doctor?: No - Diabetes Related Context Context: reports: high blood sugar, prior DKA hospitalization Review of Systems - Adult - REVIEW OF SYSTEMS - ADULT Constitutional: reports: no symptoms reported Eyes: reports: no symptoms reported Ears, Nose, Mouth & Throat: reports: no symptoms reported Cardiovascular: reports: no symptoms reported Respiratory: reports: no symptoms reported Gastrointestinal: reports: see HPI, abdominal pain, nausea, vomiting. denies: constipation, diarrhea, difficulty swallowing Genitourinary: reports: no symptoms reported Musculoskeletal: reports: no symptoms reported Integumentary: reports: no symptoms reported Neurological: reports: no symptoms reported Psychiatric: reports: no symptoms reported Past History - Adult - PAST MEDICAL HISTORY-ADULT Review of Records: reports: Old Records Reviewed, Nursing Assessment Review, Medications Reviewed, Social history reviewed & non-contributory. Major Childhood Illnesses: reports: denies history Cardiovascular: reports: CHF, HTN, hyperlipidemia, other (cardiomyopathy) Respiratory: reports: denies history Gastrointestinal: reports: GERD, other (gastroparesis, eroding esophagus) Obstetrical/Gynecological: reports: denies history Genitourinary: reports: dialysis (MWF), kidney disease Musculoskeletal: reports: denies history Neurological: reports: CVA, Seizures/Epilepsy Psychiatric: reports: anxiety Endocrine/Immune: reports: anemia, Diabetes Other Conditions: reports: cataract/glaucoma, other (VRE) - PRIOR SURGERIES/PROCEDURES Surgical/Procedure History: reports: colonoscopy, cholecystectomy, indwelling device (dialysis access), other (cataract removal; cornea transplant; lap; feeding tube) - PRIOR HOSPITALIZATIONS Prior Hospitalizations: reports: for other non-related - IMMUNIZATION STATUS Childhood Immunizations: See Nurse Assessment Flu Vaccine: See Nurse Assessment - FAMILY HISTORY Family History: reviewed, not pertinent - SOCIAL HISTORY Smoking: denies Physical Exam-General - PHYSICAL EXAM-ADULT Initial Vital Signs Reviewed: Yes - CONSTITUTIONAL General Appearance: alert, moderate distress. negative: anxious, slow to respond, obtunded, combative - EYES Eyes: PERRL/EOMI, pink conjunctivae - HEAD, EARS, NOSE, MOUTH & THROAT HENMT: normocephalic/atraumatic, moist mucous membranes - NECK Neck: non-tender, full range of motion, supple, normal inspection - RESPIRATORY Respiratory: lungs clear, normal breath sounds - CARDIOVASCULAR Cardiovascular: normal peripheral pulses, regular rate, rhythm, no edema - GASTROINTESTINAL (ABDOMEN) Abdominal Exam: abnormal bowel sounds (absent), distended, rigid, tenderness. negative: rebound, hernia, mass - LYMPHATIC Lymphatic: no adenopathy - MUSCULOSKELETAL Back Exam: normal inspection, no CVA tenderness, no vertebral tenderness Extremity: negative: deformity, erythema, inflammation, swelling, tenderness Peripheral Pulses: radial (R): 2+, radial (L): 2+ - SKIN Integumentary: normal color, normal turgor, warm/dry - NEUROLOGIC Neurologic: grossly normal, no motor/sensory deficits - PSYCHIATRIC Psych/Mental Status: normal mood/affect, normal thought content, normal thought process, oriented x 3. negative: anxious, paranoid, tearful Progress - PLAN OF CARE/RESULTS Progress/Plan/Lab Results: Vital Signs - 8 hr 06/21/19 12:18 Temperature 97.7 F Pulse Rate 97 H Respiratory Rate 20 Blood Pressure 201/121 O2 Sat by Pulse Oximetry 100 Laboratory Results - last 24 hr 06/21/19 12:22 POC Glucose 419 H D Orders Category Date Time Status ED: Urine Bedside ORDERED Care 06/21/19 12:41 Ordered Saline Loc NOW Care 06/21/19 12:41 Ordered FLAT/UPRIGHT ABD/1 VIEW CHEST [RAD] Stat Exams 06/21/19 12:42 Ordered ABG [RESP] Stat Lab 06/21/19 12:42 Ordered ACETONE SERUM [CHEM] Stat Lab 06/21/19 12:41 Uncollected CBC WITH ELECTRONIC DIFF [HEME] Stat Lab 06/21/19 12:41 Uncollected CK PROFILE [SP CHEM] Stat Lab 06/21/19 12:41 Uncollected COMPREHENSIVE METABOLIC PANEL [CHEM] Stat Lab 06/21/19 12:41 Uncollected URINALYSIS W/POSS RFLX CULT [URINALYSIS] Stat Lab 06/21/19 12:41 Uncollected Ns 1000 ml IV Bolus X1 Med 06/21/19 12:42 Ordered 0.9% Sodium Chloride Inj [Ns] 1,000 ml IV 999 mls/hr Ondansetron [Zofran] Med 06/21/19 12:42 Once 4 mg IV NOW ONE Laboratory Tests 06/21/19 06/21/19 06/21/19 12:22 12:55 13:23 WBC RBC Hgb Hct MCV MCH MCHC RDW Std Deviation Plt Count MPV Immature Gran % (Auto) Neut % (Auto) Lymph % (Auto) [place] % (Auto) Eos % (Auto) Baso % (Auto) Immature Gran # (Auto) Neut # (Auto) Lymph # (Auto) [place] # (Auto) Eos # (Auto) Baso # (Auto) Specimen Type ARTERIAL Sample Site L RADIAL pH 7.46 H pCO2 46 H pO2 57 L HCO3 30.9 H Base Excess 7.9 H Oxyhemoglobin 89.0 L* ABG O2 Sat (Calculated) 13.8 L ABG O2 Saturation 91.1 L ABG Carboxyhemoglobin 1.70 ABG Methemoglobin 0.6 Brent Test YES A-a O2 Difference 35.0 Total Hemoglobin 11.0 L Lactate 3.80 H Blood Gas Modality ROOM AIR FiO2 % 21.0 Sodium 139 Potassium 4.7 Chloride 94 L Carbon Dioxide 25 Anion Gap 20 BUN 22 Creatinine 4.0 H Estimated GFR/1.73 m2 15 BUN/Creatinine Ratio 6 Glucose 353 H POC Glucose 419 H D Calculated Osmolality 295 Calcium 9.4 Magnesium 2.1 Total Bilirubin 0.57 AST 79 H ALT 64 H Alkaline Phosphatase 487 H Creatine Kinase 44 Total Protein 7.8 Albumin 4.4 Globulin 3.4 Albumin/Globulin Ratio 1.3 Urine Source Urine Color Urine Turbidity Urine pH Ur Specific [place] Urine Protein Ur Glucose (Stick) Ur Ketones (Stick) Urine Blood Urine Nitrite Urine Bilirubin Urobilinogen Dipstick Urine Leukocytes Urine WBC (Auto) Urine RBC (Auto) U Epithel Cells (Auto) Urine Bacteria (Auto) Urine Crystals Small Round Cells Urine Casts Urine Yeast-like Cells Acetone Level NEGATIVE 06/21/19 06/21/19 15:10 16:01 WBC 8.75 RBC 3.83 L Hgb 11.5 L Hct 37.0 MCV 96.6 MCH 30.0 MCHC 31.1 L RDW Std Deviation 20.4 H Plt Count 384 MPV 9.9 Immature Gran % (Auto) 0.3 Neut % (Auto) 70.9 Lymph % (Auto) 12.1 L [place] % (Auto) 14.5 H Eos % (Auto) 0.5 Baso % (Auto) 1.7 H Immature Gran # (Auto) 0.03 Neut # (Auto) 6.20 Lymph # (Auto) 1.06 L [place] # (Auto) 1.27 H Eos # (Auto) 0.04 Baso # (Auto) 0.15 Specimen Type Sample Site pH pCO2 pO2 HCO3 Base Excess Oxyhemoglobin ABG O2 Sat (Calculated) ABG O2 Saturation ABG Carboxyhemoglobin ABG Methemoglobin Brent Test A-a O2 Difference Total Hemoglobin Lactate Blood Gas Modality FiO2 % Sodium Potassium Chloride Carbon Dioxide Anion Gap BUN Creatinine Estimated GFR/1.73 m2 BUN/Creatinine Ratio Glucose POC Glucose Calculated Osmolality Calcium Magnesium Total Bilirubin AST ALT Alkaline Phosphatase Creatine Kinase Total Protein Albumin Globulin Albumin/Globulin Ratio Urine Source CLEAN CATCH Urine Color YELLOW Urine Turbidity HAZY Urine pH 8.5 Ur Specific [place] 1.009 Urine Protein 600 A Ur Glucose (Stick) 1000 A Ur Ketones (Stick) NEGATIVE Urine Blood TRACE A Urine Nitrite NEGATIVE Urine Bilirubin NEGATIVE Urobilinogen Dipstick NORMAL Urine Leukocytes NEGATIVE Urine WBC (Auto) 10-20 A Urine RBC (Auto) <10 U Epithel Cells (Auto) >10 A Urine Bacteria (Auto) 2+ Urine Crystals Not Reportable Small Round Cells Not Reportable Urine Casts Not Reportable Urine Yeast-like Cells PRESENT Acetone Level Dr. Cade at bedside for evaluation and he will admit the patient. Dr. Avilez notified to place a central line. Discussed plan of care with patient. patient agrees with plan and verbalizes understanding. Result Diagrams: 06/21/19 16:01 06/21/19 13:23 - XRAY 1 XRAY Study: Chest, Abdomen ([facility] - [address] [place] [address] [place], [place] [id number] [facility] - [address] [place] [address] Department of Imaging Patient: SANDRO BUSTAMANTEADM Date: 06/21/19MR#: [id number] : 1980ADM Status: REG [facility]#: [id number] Age/Sex: 39/FRoom/Bed: Loc: ED Ordering Physician: Negar Kennedy Family Physician: Vicki Lee MD Reason for Procedure: abd pain Signed EXAM: FLAT/UPRIGHT ABD/1 VIEW CHEST - 06/21/2019 HISTORY: abd pain TECHNIQUE: Supine and upright abdomen and one view chest COMPARISON: 06/08/2019 FINDINGS: The bowel gas pattern appears nonspecific and nonobstructive. There is no free air identified. There are surgical clips at the right upper quadrant. Upright chest shows stable cardiomegaly. There is mild prominence of central vascular markings which is decreased. There are scattered subsegmental atelectasis. There is no consolidation, pleural effusion, or pneumothorax identified. IMPRESSION: N onspecific, nonobstructive bowel gas pattern. Stable cardiomegaly. Mild prominence of central vascular markings, which is decreased compared to prior. Scattered subsegmental atelectasis. Electronically signed by Arvin Link 06/21/2019 3:47 PM 06/21/19 6205 Interpreting Physician: Arvin Link MD Dictated Date/Time: 06/21/19 2286 cc: Negar Kennedy; Vicki Lee MD) XRAY Interpretation: See note - CONSULTS/PCP/HOSPITALIST Notification #1 *Consult/PCP/Hospitalist*: Tara george Dr. Reason/Comments: Admission Consult Disposition: Will see in ED, Admit Procedures - CENTRAL LINE Consent Form Signed?: Yes Time-Out Verification Completed?: Yes Central Line Lumen: triple Central Line Procedure Prep: Hand Hygeine Performed, Betadine, Sterile Body Drape Placed Patient Position (To prevent Air Embolism): Supine (Femoral) Central Line Position: femoral (L) Ultrasound Guided?: Yes Hat, mask, sterile gown, & sterile gloves worn by physician?: Yes Site scrubbed vigorously for 30 seconds? (Groin: 2 min): Yes Anesthetic: 1%, Lidocaine/Xylocaine Volume of Anesthetic (ml's): 5 Post Procedure: Sutured in place, BioPatch placed, Sterile dressing applied, Blood aspirated from each lumen Complications: none Procedure Comment: tolerated procedure well Departure - Departure Date of Disposition Decision: 06/21/19 Time of Disposition Decision: 16:33 DIAGNOSIS: End-stage renal disease on hemodialysis, Hypertensive encephalopathy syndrome, Noncompliance with medications, Hypoxia, Hyperglycemia Abdominal pain Qualifiers: Abdominal location: unspecified location Qualified Code(s): R10.9 - Unspecified abdominal pain Disposition: ADMITTED INPATIENT 09 Certified Medical Emergency: Emergent Condition: Stable - Critical Care Note This patient required my direct & personal management of CC.: Yes Total Time (mins): 45 Critical Care Statement: This patient required my direct personal management to treat or rule out processes, the absence of which, could potentiallly result in sudden, clinically significant life or limb threatening deterioration. Attestation - Physician/ SARAI Attestation Patient care was provided by Advanced Practice Provider:: Yes Advanced Practice Provider:: Negar Kennedy Advanced Practice Provider documentation review:: The Mid-level provider documentation, treatment plan and medical decision making was reviewed by the dominga singh who agrees with all treatment and medical decision making by the MLP. The physician spent face to face time with patient:: Yes Advanced Practice Provider documentation review:: Supervising physician onsite and consulted in the evaluation and care of this patient. The physician did have a face to face encounter with the patient.
[2019-06-21 13:05] LABS: ALLEN TEST YES; BE 7.9 mmoll (-3.0-3.0); BLOOD TYPE ARTERIAL; HCO3-(ACT) 30.9 mmoll (20.0-26.0); METHB 0.6 % (0.0-1.5); O2(CT) 13.8 mL/dL (15.0-23.0); PCO2(98.6) 46 mmHg (35-45); PO2(98.6) 57 mmHg (60-100); SAMPLE BLOOD; SAO2 91.1 % (95.0-100.0); pH(98.6) 7.46 (7.35-7.45)
[2019-06-21 13:07] LABS: MODALITY ROOM AIR
[2019-06-21 14:11] LABS: AGAP 20; ALB/GLOB RATIO 1.3; ALBUMIN 4.4 g/dL (3.5-5.0); ALKALINE PHOSPHATASE 487 U/L (32-104); BUN 22 mg/dL (8-22); CALCIUM 9.4 mg/dL (8.8-10.2); CHLORIDE 94 mmol/L (98-107); CK PROFILE 44 U/L (24-173); COSMO 295; ESTIMATED GFR 15; GLUCOSE 353 mg/dL (70-104); GOT 79 U/L (10-30); GPT 64 U/L (10-36); MAGNESIUM 2.1 mg/dL (1.5-2.7); POTASSIUM 4.7 mmol/L (3.5-5.1); SODIUM 139 mmol/L (136-145); TCO2 25 mmol/L (25-35); TOTAL BILIRUBIN 0.57 mg/dL (0.20-1.00); TOTAL PROTEIN 7.8 g/dL (6.3-8.3)
[2019-06-21 14:32] LABS: ACETONE SERUM NEGATIVE (NEGATIVE)
[2019-06-21 15:38] LABS: URINE SOURCE CLEAN CATCH
[2019-06-21 15:49] LABS: BILIRUBIN URINE NEGATIVE (NEGATIVE); BLOOD URINE TRACE (NEGATIVE); COLOR YELLOW; GLUCOSE URINE 1000 mg/dL (NEGATIVE); KETONE URINE NEGATIVE (NEGATIVE); LEUKOCYTES URINE NEGATIVE (NEGATIVE); NITRITE URINE NEGATIVE (NEGATIVE); PH URINE 8.5; PROTEIN URINE 600 mg/dL (NEGATIVE); SP GRAVITY URINE 1.009; TURBIDITY URINE HAZY (CLEAR); UROBILINOGEN URINE NORMAL (NORMAL)
--- NOTE | 2019-06-21 15:50 | Diag Imaging Result Doc PS360 ---
EXAM: FLAT/UPRIGHT ABD/1 VIEW CHEST - 06/21/2019 HISTORY: abd pain TECHNIQUE: Supine and upright abdomen and one view chest COMPARISON: 06/08/2019 FINDINGS: The bowel gas pattern appears nonspecific and nonobstructive. There is no free air identified. There are surgical clips at the right upper quadrant. Upright chest shows stable cardiomegaly. There is mild prominence of central vascular markings which is decreased. There are scattered subsegmental atelectasis. There is no consolidation, pleural effusion, or pneumothorax identified. IMPRESSION: Nonspecific, nonobstructive bowel gas pattern. Stable cardiomegaly. Mild prominence of central vascular markings, which is decreased compared to prior. Scattered subsegmental atelectasis. Electronically signed by Arvin Link 06/21/2019 3:47 PM
[2019-06-21 15:53] LABS: UR EPITHELIAL CELLS >10 /HPF (<10); URINE BACTERIA 2+ /HPF; URINE RBC <10 /HPF (<10)
[2019-06-21 16:04] LABS: URINE YEAST PRESENT
[2019-06-21] MEDS ORDERED: PHENERGAN IM ONE (16:04)
[2019-06-21 16:06] LABS: BASO# 0.15 X1000 (0.0-0.2); BASO% 1.7 % (0.0-0.8); EOS# 0.04 X1000 (0.0-0.7); EOS% 0.5 % (0.0-10.0); HEMOGLOBIN 11.5 g/dL (12.0-16.0); IMM GRAN# 0.03 X1000 (0.0-0.04); IMM GRAN% 0.3 % (0.0-0.5); LYMPH# 1.06 X1000 (1.2-3.4); LYMPH% 12.1 % (20.5-51.1); MCHC 31.1 g/dL (33-37); MCV 96.6 FL (81-99); MONO# 1.27 X1000 (0.11-0.59); MONO% 14.5 % (1.7-9.3); MPV 9.9 FL (7.4-10.4); NEUT% 70.9 % (42.2-75.2); PLT 384 X1000 (130-400); RBC 3.83 XMIL (4.2-5.4); RDW 20.4 % (11.5-14.5); WBC 8.75 X1000 (4.8-10.8)
[2019-06-21] MEDS ORDERED: DILAUDID IM ONE (16:58)
[2019-06-21] MEDS ORDERED: ATIVAN IM ONE (17:09)
[2019-06-21] MEDS ORDERED: ZOFRAN IV PRN (19:54)
[2019-06-21] MEDS: APRESOLINE IV PRN (20:25)
[2019-06-21] MEDS ORDERED: D50W SYRINGE IV ONE (21:08)
--- NOTE | 2019-06-21 21:23 | HISTORY AND PHYSICAL ---
ADDENDUM: The patient seen and examined by me [id number]. All the laboratory, vital signs and images were reviewed. The patient presented to the emergency department due to nausea and vomiting and abdominal pain. Apparently, this has been going on for a day. She is not on DKA and she has been admitted multiple times due to the same. Her last admission was on 06/07/2019 due to nausea. She has a history of gastritis with gastroparesis, uncontrolled diabetes and CKD stage 5 on dialysis and apparently she had dialysis yesterday. Her blood pressure is elevated, but we are taking this blood pressure on her feet leg, because her right arm has a dialysis fistula and her left arm has a recent humeral fracture repair, I am not quite sure if this is the real blood pressure though, but we are going to treat her with her home medications and as needed medications as well. Since she is not eating or drinking anything, we will give her a low amount of IV fluid, probably normal saline at 50 mL/h. Dr. Kay from in the nephrology department will be consulted. We will treat her pain and her blood sugar which is elevated. ABGs showed an elevated pCO2 and hypoxemia. She has been placed on oxygen and we will continue to monitor. The liver function tests are elevated and this is chronic. We will continue with her home medications. Hopefully, this patient will be able to tolerate those. Upon examination, this patient's abdomen is soft. She is having generalized tenderness to palpation. No signs of peritoneal irritation. No rebound. She is alert. She is oriented x3. She is following commands, but she is crying and complaining of abdominal pain with nausea. We did an abdomen x-ray that showed a nonspecific, nonobstructive bowel gas pattern. Like I mentioned before, this patient has a history of gastroparesis. I will hydrate this lady a little bit and we will monitor. I agree with the rest of the nurse practitioner's assessment and plan. cc: Logan Abraham MD
[2019-06-21] MEDS: NS 1,000 ML IV SCH (21:34)
--- NOTE | 2019-06-21 21:55 | HISTORY AND PHYSICAL ---
PRIMARY CARE PHYSICIAN: Vicki Lee MD. PRODUCTION LABORER: Dr. Kay. CHIEF COMPLAINT: Nausea, vomiting and generalized abdominal pain that began today. HISTORY OF PRESENTING ILLNESS: This is a 39-year-old, female who presents to [facility] with complaints of nausea, vomiting, and generalized abdominal pain that began this morning and has progressively worsened. She is tearful during the examination. Was recently in the hospital on 06/07/2019 through 06/13/2019, where she was also noted to be nauseated and vomiting with some abdominal pain. Admitted for workup at that time. She is an end-stage renal dialysis patient with dialysis on Tuesday, Tuesday, Tuesday. Did go to her dialysis yesterday. When she arrived to the emergency room, she was noted to have a blood pressure of 201/121, but it is unclear if this is very accurate as we are having to obtained in her leg as she has her fistula in her right arm and her left arm had a recent conchis placed due to a fracture. So we are unable to use her left arm at this time too. We had an EJ in the left side of her neck. She pulled that out, so we are going to have to place a central line and we will admit her for further evaluation and treatment. PAST MEDICAL HISTORY: End-stage renal disease with dialysis Tuesday, Tuesday, Tuesday, diabetes type 1, hypertension, seizure disorder, diastolic heart failure with an ejection fraction of 25%, chronic constipation, esophagitis and gastritis, gastroparesis, and a history of CVA. PAST SURGICAL HISTORY: Corneal transplant, an AV fistula to her right arm, cholecystectomy, history of J- tube placement. FAMILY HISTORY: Positive for her mother having hypertension and diabetes. Does not know her father's history. SOCIAL HISTORY: She denies any tobacco, alcohol or illicit drug use. ALLERGIES: To adhesive. HOME MEDICATIONS: Norvasc 10 mg p.o. daily, calcium acetate 667 mg p.o. daily, Catapres 0.2 mg p.o. daily, Epogen 10,000 units subcu on Tuesday, Tuesday, and Tuesday, NovoLog FlexPen p.r.n. will be held. Basaglar 10 units subcutaneous daily, labetalol 400 mg p.o. t.i.d., lisinopril 40 mg p.o. daily, Reglan 5 mg p.o. a.c. and bedtime, Remeron 45 mg p.o. at bedtime, multivitamin 1 p.o. daily, pantoprazole 40 mg p.o. daily, Dilantin 100 mg p.o. t.i.d., and pravastatin 80 mg p.o. at bedtime. LABORATORY DATA: Showed a white blood cell count of 8.75, hemoglobin 11.5, hematocrit 37, platelets 384,000. ABG with a pH of 7.46, pCO2 of 46, PO2 57, bicarb 30.9, and this was on room air. Lactate was 3.80. Sodium 139, potassium 4.7, chloride 94, CO2 25, BUN of 22, creatinine of 4, glucose 353, AST of 79, ALT 64, alkaline phosphatase 487. Urinalysis was negative except for 2+ bacteria. Acetone level was negative. Abdomen x-ray was nonspecific nonobstructive bowel gas pattern. REVIEW OF SYSTEMS: She denied any fever, chills, blurred vision, dizziness, chest pain, coughing, shortness of breath. She had abdominal pain that was generalized with nausea, vomiting. Denied any constipation or diarrhea, burning or hurting with urination as she states she does still make a little bit of urine at times. PHYSICAL EXAMINATION: On arrival, she had a temperature of 97.7 degrees, pulse 97, respirations 20, blood pressure 201/121, saturating 100% on room air. GENERAL: This is a 39-year-old, female who is lying in the bed, is tearful during exam, but answers questions appropriately. HEENT: Normocephalic, atraumatic. Normal ENT inspection. Oropharynx and nares are clear. EYES: Pupils are equal, round, reactive to light and accommodation. Extraocular movements are intact. NECK: Normal inspection. Normal range of motion. LUNGS: Clear to auscultation bilaterally with equal lung expansion and chest wall movement. HEART: Regular rate and rhythm. No murmurs, rubs, or gallops. ABDOMEN: Soft. It is tender to palpation. Bowel sounds are hypoactive x4 quadrants. MUSCULOSKELETAL: She has 5/5 strength x4 extremities. NEUROLOGICAL: The cranial nerves 2-12 appear grossly intact. ASSESSMENT: 1. Generalized abdominal pain. 2. Nausea and vomiting. 3. Uncontrolled hypertension. 4. Diabetes type 1 with hyperglycemia uncontrolled. OUR PLAN: She will be admitted to the medical unit, placed on telemetry. We are going to have to place a central line to obtain IV access. That will be done by the ER MD. We will consult Nephrology. Place on pattern blood sugars with sliding scale insulin. Place on normal saline at 50 mL an hour. Continue her home medications. Place her on hydralazine 10 mg IV q.4 hours p.r.n. for a systolic blood pressure greater than 190, diastolic greater than 100. Dilaudid 0.5 mg IV q.3 hours p.r.n. and Zofran 4 mg IV q.4 hours p.r.n. Recheck a CBC, BMP in the a.m. and place on renal diet. Further orders after seen by attending and by advisor consultant. Dictated by MANNY Rainey for Logan Abraham MD cc: MANNY Rainey MD Hiteshri S. Bhavsar, MD
[2019-06-21] MEDS: HUMALOG SUBQ SCH (22:27)
[2019-06-21] MEDS: REGLAN PO SCH (22:28)
[2019-06-21] MEDS: PRAVACHOL PO SCH (22:28)
[2019-06-21] MEDS: REMERON PO SCH (22:28)
[2019-06-22] MEDS: APRESOLINE IV PRN (00:08)
[2019-06-22] MEDS: DILAUDID IV PRN ×4 (00:18→21:22)
[2019-06-22] MEDS: D50W SYRINGE IV PRN ×2 (06:33→17:10)
[2019-06-22] MEDS: REGLAN PO SCH ×2 (06:34→13:02)
[2019-06-22] MEDS ORDERED: NS 2,000 ML MISC PRN (06:37)
[2019-06-22] MEDS ORDERED: TIGHT: 0.2 ML/HR FOR DIALYSIS MISC PRN (06:37)
[2019-06-22] MEDS ORDERED: HEPARIN IV PRN (06:37)
[2019-06-22] MEDS: HUMALOG SUBQ SCH ×4 (06:49→22:54)
[2019-06-22] MEDS ORDERED: APRESOLINE IV PRN (07:54)
[2019-06-22] MEDS: LANTUS INSULIN SUBQ SCH (08:15)
--- NOTE | 2019-06-22 09:07 | PROGRESS NOTE ---
DATE: 06/22/2019 SUBJECTIVE: As per the patient, she is feeling a little bit better compared with yesterday. She had some episodes of hypoglycemia during the night but at this moment, her blood sugar is 132. She seems to be tolerating a little bit p.o. compared with yesterday. Pending lab work today. She is scheduled for dialysis today as well. OBJECTIVE: Vital Signs: Temperature 98 degrees, pulse 93, respiratory rate 10, blood pressure 128/87, oxygen saturation 95% on room air. HEENT: Head normocephalic. No trauma. PERRLA. She has multiple small eschar lesions on her face, they are chronic. Neck: Supple. No JVD. Central trachea. Chest: Clear to auscultation. Decreased breath sounds at the bases with some crepitus. Abdomen: Soft. Generalized tenderness to palpation. Bowel sounds are hypoactive. Neurological: This patient is alert. She is awake. She is following commands. Extremities: No edema. No clubbing. No cyanosis. LABORATORY DATA: Glucose 132. ASSESSMENT AND PLAN: 1. Intractable nausea and vomiting. We will continue with same management. She seems to be feeling a little bit better compared with yesterday. She is still complaining of abdominal pain. We will monitor. 2. Generalized abdominal pain, seems to be getting better also. We will continue to monitor this patient closely. 3. Uncontrolled hypertension. Her blood pressure has been really elevated, but also we have been taking the blood pressure in the lower extremities since she has a fistula on one side and a recent surgery of humeral fracture on the other side, so I am not quite sure how accurate this is. 4. Type 1 diabetes with hyperglycemia, which has been uncontrolled. I will ask for a hemoglobin A1c. She has been having some episodes of hypoglycemia. 5. End-stage renal disease on dialysis Tuesday, Tuesday, and Tuesday. She is due for dialysis today. 6. History of seizure disorder. Continue with same management. 7. Combined heart failure with an ejection fraction of 25%. Aware. 8. History of gastroparesis. Aware. We will continue with the same management. 9. History of cerebrovascular accident. I do not see any residual weakness at this moment. cc: Logan Abraham MD
[2019-06-22] MEDS: TRANDATE PO SCH ×3 (10:24→16:55)
[2019-06-22] MEDS: DILANTIN PO SCH ×3 (10:24→16:55)
[2019-06-22] MEDS: PRINIVIL PO SCH (13:02)
[2019-06-22] MEDS: CENTRUM TABLET PO SCH (13:02)
[2019-06-22] MEDS: NORVASC PO SCH (13:03)
[2019-06-22] MEDS: PROTONIX PO SCH (13:03)
[2019-06-22] MEDS: PHOSLO PO SCH (13:03)
[2019-06-22] MEDS ORDERED: PHENERGAN PO PRN (13:05)
[2019-06-22] MEDS: CATAPRES PO SCH (13:13)
[2019-06-22] MEDS: EPOGEN SUBQ SCH (13:22)
--- NOTE | 2019-06-22 13:59 | NEPHROLOGY CONSULTATION ---
DATE: 06/22/2019 REASON FOR CONSULTATION: Evaluation and treatment. HISTORY OF PRESENT ILLNESS: Ms. Chaparro is a 39-year-old, woman who is well known to us. She has diabetes type 1 complicated by dilated cardiomyopathy, CKD 5D, hypertension, hyperlipidemia, gastroparesis, etc. She was recently hospitalized following a seizure with altered mental status and DKA. She was brought back to the emergency room today because of nausea and vomiting and concern for recurrent DKA. She was markedly hypertensive, but did not have acidosis or profound hyperglycemia. Glucose 419 by POC instrument at the time of admission. She has not missed her dialysis treatments. She has not had a recent seizure to her knowledge. She continues to have nausea and vomiting but also complains of odynophagia. She was experiencing this during her last hospitalization as well. PAST MEDICAL HISTORY: As above. HOME MEDICATIONS: Include mirtazapine, clonidine, pantoprazole, phenytoin, lisinopril, amlodipine, insulin, pravastatin, labetalol, multivitamin, calcium acetate, metoclopramide. ALLERGIES: Adhesive. SOCIAL HISTORY: She lives in [place] with her parents. No alcohol or tobacco. FAMILY HISTORY: Otherwise noncontributory. REVIEW OF SYSTEMS: Otherwise noncontributory. PHYSICAL EXAMINATION: Vital Signs: Blood pressure 128/87, heart rate 93, respirations 10, afebrile. General: She is a young chronically ill-appearing woman in no distress. Skin: Warm and dry with multiple scars. Pupils are equal. Conjunctivae are pink. Oropharynx is clear. Neck: Supple. Neck veins are not distended. Heart: PMI is enlarged with a gallop. Lungs: Have equal breath sounds. No crackles or wheezes. Abdomen: Soft, nontender. Bowel sounds are present. No organomegaly or masses. Extremities: Have no edema, clubbing or cyanosis. Neurologic: Nonfocal. IMPRESSION: 1. Chronic kidney disease 5D. She will have her routine hemodialysis treatment today. 2. Hypertension. Much better having received p.r.n. treatment. Her home medications have been reordered. Observe. 3. Odynophagia. I spoke directly with Dr. Cruz who will see her in consultation. 4. Anemia within target. cc: Hardy Kay MD
[2019-06-22 15:20] LABS: BASO# 0.08 X1000 (0.0-0.2); BASO% 0.9 % (0.0-0.8); EOS# 0.12 X1000 (0.0-0.7); EOS% 1.3 % (0.0-10.0); HEMATOCRIT 34.8 % (37.0-47.0); HEMOGLOBIN 10.6 g/dL (12.0-16.0); LYMPH# 1.41 X1000 (1.2-3.4); LYMPH% 15.7 % (20.5-51.1); MCH 29.4 PG (27-31); MCHC 30.5 g/dL (33-37); MCV 96.7 FL (81-99); MONO# 1.17 X1000 (0.11-0.59); MPV 9.6 FL (7.4-10.4); NEUT# 6.21 X1000 (1.4-6.5); NEUT% 69.1 % (42.2-75.2); PLT 331 X1000 (130-400); RDW 20.7 % (11.5-14.5); WBC 8.99 X1000 (4.8-10.8)
--- NOTE | 2019-06-22 15:37 | Diag Imaging Result Doc PS360 ---
EXAM: US ABDOMEN-COMPLETE 06/22/2019 HISTORY: abdominal pain TECHNIQUE: Abdominal ultrasound COMMENT: The visualized portions of the aorta and inferior vena cava are within normal limits. The liver is slightly hyperechoic. There is no evidence of biliary dilatation the common bile duct measuring less than 6 mm. There is antegrade flow in the portal vein. The kidneys are without evidence of hydronephrosis or mass. There is a cyst in the upper pole of the left kidney measuring 9 mm in diameter. Both kidneys are slightly hyperechoic in appearance. The spleen is not enlarged. There are no abnormal fluid collections. Compared to the previous study of 09/07/2018 there has been no significant change. The gallbladder is surgically absent. IMPRESSION: Left renal cyst. Questionable medical renal disease. No evidence of acute disease otherwise. Electronically signed by Issa Castro 06/22/2019 3:35 PM
[2019-06-22 15:44] LABS: ALB/GLOB RATIO 1.1; ALBUMIN 4.1 g/dL (3.5-5.0); DIRECT BILIRUBIN 0.3 mg/dL (0.00-0.20); TOTAL BILIRUBIN 0.6 mg/dL (0.20-1.00); TOTAL PROTEIN 7.7 g/dL (6.3-8.3)
[2019-06-22 16:00] LABS: CALCIUM 8.5 mg/dL (8.8-10.2); CREATININE 2.9 mg/dL (0.5-0.9); POTASSIUM 4.1 mmol/L (3.5-5.1)
[2019-06-22] MEDS: ZOFRAN PO SCH ×2 (16:09→21:12)
[2019-06-22] MEDS: NS 1,000 ML IV SCH (16:10)
[2019-06-22] MEDS: REMERON PO SCH (21:12)
[2019-06-22] MEDS: PRAVACHOL PO SCH (21:12)
[2019-06-23] MEDS: DILAUDID IV PRN ×4 (01:35→20:24)
[2019-06-23] MEDS ORDERED: D10W 1,000 ML IV SCH (02:15)
[2019-06-23] MEDS: NS 1,000 ML IV SCH (02:30)
[2019-06-23] MEDS: BENADRYL PO PRN ×3 (03:07→20:24)
[2019-06-23 06:07] LABS: BASO# 0.05 X1000 (0.0-0.2); BASO% 0.8 % (0.0-0.8); EOS# 0.09 X1000 (0.0-0.7); EOS% 1.5 % (0.0-10.0); HEMOGLOBIN 10.3 g/dL (12.0-16.0); IMM GRAN# 0.03 X1000 (0.0-0.04); IMM GRAN% 0.5 % (0.0-0.5); LYMPH% 9.8 % (20.5-51.1); MCH 29.3 PG (27-31); MCHC 30.3 g/dL (33-37); MCV 96.9 FL (81-99); MONO# 0.89 X1000 (0.11-0.59); MONO% 14.6 % (1.7-9.3); MPV 9.9 FL (7.4-10.4); NEUT# 4.45 X1000 (1.4-6.5); NEUT% 72.8 % (42.2-75.2); PLT 257 X1000 (130-400); RBC 3.51 XMIL (4.2-5.4); RDW 20.9 % (11.5-14.5); WBC 6.11 X1000 (4.8-10.8)
[2019-06-23] MEDS: HUMALOG SUBQ SCH ×4 (06:17→20:22)
[2019-06-23 06:20] LABS: HEMOGLOBIN A1C 8.5 % (4.8-6.0)
[2019-06-23] MEDS: ZOFRAN PO SCH ×4 (06:38→20:26)
[2019-06-23 06:45] LABS: ALB/GLOB RATIO 1.2; ALBUMIN 3.9 g/dL (3.5-5.0); CALCIUM 8.5 mg/dL (8.8-10.2); CREATININE 3.6 mg/dL (0.5-0.9); POTASSIUM 4.5 mmol/L (3.5-5.1); TOTAL BILIRUBIN 0.59 mg/dL (0.20-1.00); TOTAL PROTEIN 7.1 g/dL (6.3-8.3)
--- NOTE | 2019-06-23 07:25 | GASTROENTEROLOGY CONSULTATION ---
DATE: 06/22/2019 REASON FOR CONSULT: Nausea, vomiting, with odynophagia. HISTORY OF PRESENT ILLNESS: Ms. Chaparro is a 39-year-old, -[place] female, came to the ER yesterday with symptoms of nausea, vomiting, and abdominal pain. She mentioned that she had vomited coffee-ground emesis. She recalls eating some chicken and fries the previous night. She complained of abdominal pain, describing as soreness all over and the pain scale was 10. She has a history of hypertension, hyperlipidemia, diabetes type 1, esophagitis, gastritis, end- stage renal disease, and is on dialysis Tuesday, Tuesday, and Tuesday. She has a fistula on the right upper arm. Patient denied having any fever or chills, but complained of profuse sweating. She also mentioned that she sometimes has jerking sensations, which family members think that she is having some mild seizures, she takes Reglan on daily basis. She was recently admitted to the hospital on June 07 for DKA, she had not taking her insulin thinking that she ran out of it. Patient did have an outpatient EGD with Dr. Briscoe on 11/28/18, findings were gastritis with erosion and positive H-pylori. PAST MEDICAL HISTORY: End-stage renal disease, on dialysis Tuesday, Tuesday, Tuesday; diabetes type 1, hypertension, congestive heart failure, chronic constipation, esophagitis, gastritis, gastroparesis, and a history of CVA. PAST SURGERIES: She had a surgery on her forehead, right upper arm shunt, history of PEJ placement, and cholecystectomy. FAMILY HISTORY: Mom has hypertension and diabetes. SOCIAL HISTORY: She is single, lives with her parents. She has denied any smoking, alcohol, or illicit drug use. ALLERGIES: Adhesives. HOME MEDICINES: Epogen 10,000 units subcutaneous, Remeron 45 mg p.o. at bedtime, Catapres 0.2 mg daily, Protonix 40 mg daily, Dilantin 100 mg 3 times a day, lisinopril 40 mg daily, Norvasc 10 mg daily, NovoLog FlexPen on a sliding scale, pravastatin 80 mg at bedtime, labetalol 400 mg 3 times a day, multivitamin with iron 1 tablet daily, Lantus 10 units subcutaneous daily, calcium acetate 667 mg daily, Reglan 5 mg before meals and at bedtime. PHYSICAL EXAMINATION: Vital Signs: Temperature 98.0 degrees, pulse is 93, respirations 10. Blood pressure is 128/87. Oxygen saturation is 95% on room air. Patient's weight is 126 pounds. BMI is 22.3 kg/m2. General: She is alert, oriented x3, and in no acute distress. She was at the dialysis unit receiving her dialysis. Answering questions appropriately. HEENT: Pale conjunctivae. No icterus. PERRL. Neck: Supple. Lungs: Clear to auscultation. Cardiovascular: Regular rate and rhythm. Abdomen: Soft, tender, nondistended. Active bowel sounds heard in all 4 quadrants. Extremities: Has dialysis shunt on the right upper arm, No cyanosis, clubbing, or edema. 2+ pedal pulses bilaterally. Neurological: Alert, oriented x3. Nonfocal. Cranial nerves 2-12 grossly intact. LABORATORY AND DIAGNOSTIC DATA: WBC is 8.75, RBC 3.83, hemoglobin 11.5, hematocrit 37.0, platelet count is 384,000. Sodium 139, potassium 4.7, chloride 94, carbon dioxide 25, anion gap 20, BUN 22, creatinine is 4.0, calcium 9.4, magnesium 2.1, total bilirubin 0.57, AST 79, ALT 64, alkaline phosphatase is 487, albumin is 4.4. Urinalysis showed protein of 600, glucose of 1000, trace of blood, WBC 10 to 20. Abdominal x-ray showed nonspecific, nonobstructive bowel gas pattern. IMPRESSION: Nausea/Vomiting Abdominal pain Coffee ground emesis Gastritis Esophagitis Gastroparesis ESRD Diabetes Type 1 Hypertension Hyperlipidemia PLAN: We will start patient on Zafran scheduled before every meals. Phenergan as needed Q6 hrs. We have discontinued her Reglan for now, patient c/o of jerking sensation and think that it might be due to her Reglan. She is receiving Protonix 40 mg for her esophagitis and gastritis, multivitamin and Epogen for anemia. The patient is advised to have a low-fat diet with small frequent meals. She is on insulin per PCP for her hyperglycemia. We will continue to follow the plan of care per PCP and continue to monitor the patient. We have ordered an U/s of the abdomen and LFT's with GGT, her LFT's are elevated. This plan was discussed with Dr. Cruz. Thank you for your consult and please call us with any further questions or concerns. Dictated by MANNY Nowak for Jorge Cruz MD MTDHunter
[2019-06-23] MEDS ORDERED: HUMALOG SUBQ ONE (07:33)
[2019-06-23] MEDS: DILANTIN PO SCH ×3 (08:17→17:06)
[2019-06-23] MEDS: TRANDATE PO SCH ×3 (08:18→17:06)
[2019-06-23] MEDS: LANTUS INSULIN SUBQ SCH (08:18)
[2019-06-23] MEDS: NORVASC PO SCH (08:18)
[2019-06-23] MEDS: PRINIVIL PO SCH (08:18)
[2019-06-23] MEDS: CENTRUM TABLET PO SCH (08:18)
[2019-06-23] MEDS: CATAPRES PO SCH (08:18)
[2019-06-23] MEDS: PROTONIX PO SCH ×2 (08:18→20:20)
[2019-06-23] MEDS: PHOSLO PO SCH (08:18)
--- NOTE | 2019-06-23 09:55 | PROGRESS NOTE ---
DATE: 06/23/2019 SUBJECTIVE: The patient is still complaining of abdominal pain at the level of the epigastric area. She has been getting PPIs 40 p.o. daily, which I will increase to twice a day given her history of gastritis, esophagitis and gastroparesis. Gastroenterology Department following this patient closely. She was having some episodes of hypoglycemia, but now she is hyperglycemic. She is not tolerating too much p.o. She has been having nausea, along with epigastric pain. She had dialysis yesterday and 2.9 L of fluid has been removed. OBJECTIVE: Vital Signs: Temperature 98 degrees, pulse 104, respiratory rate 16, blood pressure 124/116, oxygen saturation 100% on room air. HEENT: Head normocephalic, no trauma. PERRLA. She has multiple small scars/lesions on her face, but they are chronic. Neck: Supple. No JVD. Central trachea. Chest: Clear to auscultation. Decreased breath sounds at the bases with some crepitus. Abdomen: Soft. Generalized tenderness to palpation, but mostly at the level of the epigastric area. Bowel sounds are present, but hypoactive. Neurological examination: The patient is alert. She is awake. She is following commands, but she is complaining of a lot of pain. Extremities: No edema, no clubbing, no cyanosis. LABORATORY: WBC 6.1, hemoglobin 10.3, hematocrit 34, platelet 257. Sodium 133, potassium 4.5, chloride 91, bicarbonate 27. BUN 13, creatinine 3.6, glucose 395, calcium 8.5. AST 76, ALT 52, alkaline phosphatase 396. ASSESSMENT AND PLAN: 1. Intractable nausea and vomiting and abdominal pain. Nausea and vomiting is a little bit better, but she is still complaining of severe abdominal pain. She does have a history of gastroparesis. Gastroenterology Department on board. She has a history also of gastritis and esophagitis. I have increased the proton pump inhibitors to twice a day. 2. Uncontrolled hypertension. Continue home medications and as-needed medication with hydralazine. Her blood pressure has been elevated. I do believe pain is playing a roll on this. 3. Type 1 diabetes with hyperglycemia. She has been having hypoglycemic events mostly yesterday; now, she is hyperglycemic again. I will continue with the same management. 4. End-stage renal disease on hemodialysis. Last dialysis was yesterday; 2.9 liters of fluid has been removed. We will continue to monitor. 5. History of seizure disorder. Continue with same management. 6. Combined heart failure with an ejection fraction of 25%, aware. 7. History of gastroparesis, gastritis and esophagitis. Continue with same management. Gastroenterology Department on board. 8. History of cerebrovascular accident. No changes at this moment. cc: Logan Abraham MD
--- NOTE | 2019-06-23 10:34 | PROVIDER PROGRESS NOTE ---
Progress Note S: Patient reports continue periumbilical abdominal pain and continue nausea particularly with eating. She reports that carafate in the past prior to meals would help. No vomiting. Her BGs have been up to 400s and she had some lows yesterday. O: Last Vital Signs Temp 98.0 F 06/23/19 08:00 Pulse 104 H 06/23/19 08:00 Resp 16 06/23/19 08:00 BP 224/116 06/23/19 08:00 Pulse Ox 100 06/23/19 08:00 Height 5 ft 3 in Weight 129 lb 6 oz GEN: awake, alert, NAD HEENT: anicteric, MMM NECK: supple, no JVD PULM: CTAB, no wheezing ABD: soft NT/ND, BS present EXT: no cce NEURO: nonfocal LABS: 06/23/19 06/23/19 04:52 04:52 WBC 6.11 Hgb 10.3 L Plt Count 257 Sodium 133 L Potassium 4.5 Chloride 91 L Carbon Dioxide 27 BUN 13 Creatinine 3.6 H Glucose 395 H D Total Bilirubin 0.59 AST 76 H ALT 52 H Alkaline Phosphatase 396 H Total Protein 7.1 Albumin 3.9 EXAM: US ABDOMEN-COMPLETE 06/22/2019 HISTORY: abdominal pain TECHNIQUE: Abdominal ultrasound COMMENT: The visualized portions of the aorta and inferior vena cava are within normal limits. The liver is slightly hyperechoic. There is no evidence of biliary dilatation the common bile duct measuring less than 6 mm. There is antegrade flow in the portal vein. The kidneys are without evidence of hydronephrosis or mass. There is a cyst in the upper pole of the left kidney measuring 9 mm in diameter. Both kidneys are slightly hyperechoic in appearance. The spleen is not enlarged. There are no abnormal fluid collections. Compared to the previous study of 09/07/2018 there has been no significant change. The gallbladder is surgically absent. IMPRESSION: Left renal cyst. Questionable medical renal disease. No evidence of acute disease otherwise. A/P: Ms. Becky Chaparro is a 39 year old woman with HTN, HLD, ESRD on HD, poorly controlled IDDM1, AOCD, GERD, h/o madhu esophagitis and H pylori gastritis (on EGD 11/2018), and gastroparesis who presents with N/V, abdominal pain and coffee ground emesis. We stopped reglan yesterday given her symptoms of involuntary movements concerning for Tardive dyskinesia and scheduled AC+HS zofran and prn phenergan. She is on PPI BID. Will start carafate QID per her request. I suspect her symptoms are related gastroparesis exacerbation in the setting of poorly controlled glucose levels. She denies dysphagia or odynophagia. Other findings including abnormal LFTs with cholestatic pattern that appears to be primarily liver in origin given elevated GGT. US was negative for biliary dilation. Will order AMA to evaluate for PBC. # Gastroparesis # Abdominal pain # Nausea # History of H pylori gastritis # Abnormal LFTs # ESRD # IDDM1 Will follow with you. Please call with questions
[2019-06-23] MEDS: CARAFATE LIQUID PO SCH ×2 (13:57→20:20)
[2019-06-23] MEDS: REMERON PO SCH (20:20)
[2019-06-23] MEDS: PRAVACHOL PO SCH (20:20)
[2019-06-24] MEDS: DILAUDID IV PRN ×4 (00:54→18:38)
[2019-06-24] MEDS: NS 1,000 ML IV SCH ×2 (01:21→10:44)
[2019-06-24] MEDS: CARAFATE LIQUID PO SCH ×4 (01:21→20:16)
--- NOTE | 2019-06-24 05:11 | EKG Report ---
Test Performed on : 06/24/2019 00:43:01 AM Test Reason : Chest pain Blood Pressure : / mmHG Vent. Rate : 085 BPM Atrial Rate : 085 BPM P-R Int : 166 ms QRS Dur : 078 ms QT Int : 416 ms P-R-T Axes : 038 012 000 degrees QTc Int : 495 ms Normal sinus rhythm. Prolonged QT Abnormal ECG When compared with ECG of 08-JUN-2019 06:47, Nonspecific T wave abnormality, improved in Inferior leads T wave inversion no longer evident in Lateral leads Confirmed by Renita CORREA, Moose Youngblood ([id number]) on 06/24/2019 7:27:18 AM
[2019-06-24] MEDS ORDERED: ATIVAN IV ONE (05:41)
[2019-06-24] MEDS: ZOFRAN PO SCH ×5 (05:41→20:17)
[2019-06-24] MEDS ORDERED: DILAUDID IV ONE (05:54)
[2019-06-24 06:03] LABS: BASO% 1.8 % (0.0-0.8); EOS# 0.07 X1000 (0.0-0.7); EOS% 1.3 % (0.0-10.0); HEMATOCRIT 33.7 % (37.0-47.0); HEMOGLOBIN 10.3 g/dL (12.0-16.0); IMM GRAN# 0.02 X1000 (0.0-0.04); IMM GRAN% 0.4 % (0.0-0.5); LYMPH# 0.97 X1000 (1.2-3.4); LYMPH% 17.5 % (20.5-51.1); MCH 29.5 PG (27-31); MCHC 30.6 g/dL (33-37); MCV 96.6 FL (81-99); MONO# 0.81 X1000 (0.11-0.59); MONO% 14.6 % (1.7-9.3); MPV 10.2 FL (7.4-10.4); NEUT# 3.57 X1000 (1.4-6.5); NEUT% 64.4 % (42.2-75.2); PLT 241 X1000 (130-400); RBC 3.49 XMIL (4.2-5.4); RDW 20.1 % (11.5-14.5); WBC 5.54 X1000 (4.8-10.8)
[2019-06-24] MEDS: HUMALOG SUBQ SCH ×4 (06:28→21:00)
[2019-06-24 06:51] LABS: ALBUMIN 3.6 g/dL (3.5-5.0); CALCIUM 8.2 mg/dL (8.8-10.2); CREATININE 4.6 mg/dL (0.5-0.9); POTASSIUM 5.5 mmol/L (3.5-5.1); TOTAL BILIRUBIN 0.51 mg/dL (0.20-1.00); TOTAL PROTEIN 7.2 g/dL (6.3-8.3)
--- NOTE | 2019-06-24 07:53 | PROGRESS NOTE ---
DATE: 06/24/2019 SUBJECTIVE: This patient seems to be doing a little bit better today. She is still complaining of abdominal pain but no nausea or vomiting. She has been having episodes of hypoglycemia and also hyperglycemia. Today, her blood sugar is around 302. I talked to the patient about it and it looks like she uses Lantus at home 15 units daily, so I will increase the Lantus from 10 to 15 to see how she does. Also, she uses a sliding scale insulin at home. We will continue to monitor this patient closely and hopefully tomorrow after dialysis, if the patient is doing good, I believe she can go home. We talked about her gastroparesis and we talked about the way she should eat as well, and she seems to understand. OBJECTIVE: Vital Signs: Temperature 98.2 degrees, pulse 84, respiratory rate 13, blood pressure 136/89, oxygen saturation 99 on room air. HEENT: Head normocephalic. No trauma. PERRLA. She has multiple scars and lesions also on her face which are chronic. Neck: Supple. No JVD. Central trachea. Chest: Clear to auscultation. Decreased breath sounds at the bases with some crepitus. Abdomen: Soft. Generalized tenderness to palpation, mostly at the level of the epigastric area. Bowel sounds are present but hypoactive. Neurological Examination: The patient is alert. She is awake. She is following commands. She is complaining of pain but compared with yesterday, it is better. Extremities: No edema, no clubbing, no cyanosis. Decreased muscle mass. Laboratory: WBC 5.5, hemoglobin 10.3, hematocrit 33.7, platelets 241,000. Sodium 137, potassium 5.5, chloride 96, bicarbonate 23, BUN 23, creatinine 4.6, glucose 302, calcium 8.2. AST 75, ALT 52, alkaline phosphatase 374, albumin 3.6. ASSESSMENT AND PLAN: 1. Intractable nausea, vomiting, and abdominal pain. This is getting better. She is still complaining of abdominal pain, which is better also. She does have a history of gastroparesis which is quite severe. We talked about her diet and the way she should be eat. Also, she has a history of gastritis and esophagitis. I will continue with proton pump inhibitors twice a day. 2. Uncontrolled hypertension. We will continue with her home medications and also as needed medications with hydralazine. Her blood pressure has been elevated but I do believe pain and peripheral vascular disease are playing a role in this. 3. Type 1 diabetes with hyperglycemia. As per the patient, she uses Lantus 15 units at home. She has been getting 10 units here. I will increase it to 15. The blood sugar today is 302. 4. End-stage renal disease on hemodialysis Tuesday, Tuesday, and Tuesday. Last Tuesday, 2.9 L of fluid were removed. We will continue to monitor. 5. History of seizure disorder. Continue with the same management. 6. History of gastritis and esophagitis. I have increased the proton pump inhibitors from once a day to twice a day. We will monitor. 7. Combined heart failure with an ejection fraction of 25%. Aware. 8. Gastroparesis. Continue with the same management. Like I mentioned before, we need to continue with a small amount of food multiple times a day and avoid fatty food or eating outside. 9. History of cerebrovascular accident. No changes. 10. Overall, this patient seems to be doing better. Her blood pressure is still elevated. She is still complaining of some abdominal pain but compared with admission, it seems to be more controlled. We will keep this patient one more day here and tomorrow, after dialysis, if the patient is doing fine, I believe she can go home. I will probably continue with proton pump inhibitors twice a day for at least one month. She will need to follow the recommendations of the manager reading about her diet. cc: Logan Abraham MD
[2019-06-24] MEDS: PRINIVIL PO SCH (09:09)
[2019-06-24] MEDS: CENTRUM TABLET PO SCH (09:09)
[2019-06-24] MEDS: LANTUS INSULIN SUBQ SCH (09:09)
[2019-06-24] MEDS: PROTONIX PO SCH ×2 (09:09→20:17)
[2019-06-24] MEDS: NORVASC PO SCH (09:09)
[2019-06-24] MEDS: TRANDATE PO SCH ×3 (09:09→17:09)
[2019-06-24] MEDS: PHOSLO PO SCH (09:09)
[2019-06-24] MEDS: DILANTIN PO SCH ×3 (09:09→17:09)
[2019-06-24] MEDS: CATAPRES PO SCH (09:09)
[2019-06-24] MEDS: D50W SYRINGE IV PRN ×2 (17:06→21:36)
--- NOTE | 2019-06-24 17:16 | EKG Report ---
Test Performed on : 06/24/2019 05:14:36 AM Test Reason : chest pain Blood Pressure : / mmHG Vent. Rate : 090 BPM Atrial Rate : 090 BPM P-R Int : 168 ms QRS Dur : 080 ms QT Int : 394 ms P-R-T Axes : 043 017 054 degrees QTc Int : 481 ms Normal sinus rhythm. Normal ECG When compared with ECG of 24-JUN-2019 00:43, (Unconfirmed) Nonspecific T wave abnormality now evident in Lateral leads Confirmed by Renita CORREA, Moose Youngblood ([id number]) on 06/25/2019 3:29:56 PM
[2019-06-24] MEDS: REMERON PO SCH (20:16)
[2019-06-24] MEDS: BENADRYL PO PRN (20:17)
[2019-06-24] MEDS: PRAVACHOL PO SCH (20:17)
--- NOTE | 2019-06-24 23:26 | PROVIDER PROGRESS NOTE ---
Progress Note S: Patient reports continued nausea and abdominal pain. No vomiting or fever. O: Last Vital Signs Temp 97.8 F 06/24/19 20:00 Pulse 75 06/24/19 20:00 Resp 17 06/24/19 20:00 BP 133/83 06/24/19 20:00 Pulse Ox 96 06/24/19 20:00 Height 5 ft 3 in Weight 130 lb GEN: awake, alert, NAD HEENT: anicteric, MMM NECK: supple, no JVD PULM: CTAB, no wheezing ABD: soft NT/ND, BS present EXT: no cce NEURO: nonfocal LABS: 06/24/19 06/24/19 06/24/19 05:05 05:05 05:05 WBC 5.54 Hgb 10.3 L Plt Count 241 Sodium 137 Potassium 5.5 H D Chloride 96 L Carbon Dioxide 23 L Anion Gap 18 BUN 23 H D Creatinine 4.6 H Glucose 302 H AST 75 H ALT 52 H Alkaline Phosphatase 374 H Troponin T 0.062 Total Protein 7.2 Albumin 3.6 A/P: Ms. Becky Chaparro is a 39 year old woman with HTN, HLD, ESRD on HD, poorly controlled IDDM1, AOCD, GERD, h/o madhu esophagitis and H pylori gastritis (on EGD 11/2018), and gastroparesis who presents with N/V, abdominal pain and coffee ground emesis. She continues to have symptoms despite carafate, zofran, and phenergan. Will plan for diagnostic EGD tomorrow with Dr. Briscoe. LFTs slightly improved. AMA pending. # Gastroparesis # Abdominal pain # Nausea # History of H pylori gastritis # Abnormal LFTs # ESRD # IDDM1 Will follow with you. Please call with questions
[2019-06-25] MEDS: DILAUDID IV PRN ×2 (00:36→08:56)
[2019-06-25] MEDS: CARAFATE LIQUID PO SCH ×3 (02:33→17:38)
[2019-06-25] MEDS: NS 1,000 ML IV SCH (02:33)
[2019-06-25] MEDS: HUMALOG SUBQ SCH ×3 (06:16→17:38)
[2019-06-25] MEDS ORDERED: TIGHT: 0.2 ML/HR FOR DIALYSIS MISC PRN (06:25)
[2019-06-25] MEDS ORDERED: HEPARIN IV PRN (06:25)
[2019-06-25] MEDS ORDERED: NS 2,000 ML MISC PRN (06:25)
--- NOTE | 2019-06-25 08:11 | EKG Report ---
Test Performed on : 06/24/2019 08:04:33 AM Test Reason : NO EKG ORDER FOR MUSE Blood Pressure : / mmHG Vent. Rate : 090 BPM Atrial Rate : 090 BPM P-R Int : 168 ms QRS Dur : 080 ms QT Int : 390 ms P-R-T Axes : 038 009 026 degrees QTc Int : 477 ms Normal sinus rhythm. Anterior infarct , age undetermined Abnormal ECG When compared with ECG of 24-JUN-2019 05:14, (Unconfirmed) Anterior infarct is now present Confirmed by Renita CORREA, Moose Youngblood ([id number]) on 06/25/2019 3:30:30 PM
[2019-06-25] MEDS ORDERED: DIPRIVAN 1% ONE (08:31)
[2019-06-25] MEDS ORDERED: FENTANYL ONE (08:34)
[2019-06-25] MEDS: ZOFRAN PO SCH ×3 (08:38→17:37)
[2019-06-25] MEDS: EPOGEN SUBQ SCH (08:38)
[2019-06-25] MEDS: DILANTIN PO SCH ×3 (08:38→17:37)
[2019-06-25] MEDS ORDERED: CATAPRES-TTS-3 TD SCH (08:45)
[2019-06-25] MEDS ORDERED: DULCOLAX PR SCH (09:15)
[2019-06-25] MEDS ORDERED: MIRALAX PO SCH ×2 (09:15→21:00)
--- NOTE | 2019-06-25 09:39 | NEPHROLOGY PROGRESS NOTE ---
DATE: 06/25/2019 Subjective: patient lying in bed resting in no acute distress. Complains of nausea throughout the night, otherwise no uremic complaints. Objective: vitals. Temperature 97.7, pulse 80, respirations 14, blood pressure 132/88, 02 sat 97% on room air. General: Young black female lying in bed resting in no acute distress. HEENT: normocephalic, atraumatic. Trachea midline. Mucous membranes moist. Skin: multiple scars noted on upper part of the body. Neck: supple, no JVD. Cardiovascular: S1, S2, enlarged PMI, heave. No murmurs or friction rub. Abdomen: slightly firm, tender to touch, nondistended. Bowel sounds active. : none inspected Extremities: no clubbing, cyanosis, or Edema. Right upper arm fistula with positive thrill and bruit. Neurological: alert and oriented to person, place, and time. Labs: intake 1120, output zero. Impression: Chronic kidney disease 5D. She will receive her routine hemodialysis today. Continue current plan. Blood pressure. We will stop her clonidine PO and start a clonidine TTS-3 patch. Electrolytes and acid base balance. Stable. Chronic Nausea. Voices nausea through the night without relief from zofran. She is scheduled for an EGD today. cc: MD GARY Becker
[2019-06-25] MEDS ORDERED: VERSED ONE (09:49)
--- NOTE | 2019-06-25 10:29 | ENDOSCOPY OPERATIVE NOTE ---
[facility] ENDOSCOPY OPERATIVE NOTE , PATIENT: Becky Chaparro ADMISSION DATE: MR#: [id number] : 1980 EGD PROCEDURE REPORT PROCEDURE DATE: 06/25/2019 SURGEON: Francisco Briscoe MD STATUS: inpatient STRATEGIC PROCUREMENT MANAGER: Bnag Cintron and Asia Arango PREOPERATIVE DIAGNOSIS: The patient is a 39 yr old female here for an EGD due to Abdominal pain ,[place] sea, Diabetes, Diabetic Gastroparesis, h/o constipaion, ESRD on HD. PROCEDURE PERFORMED: EGD, diagnostic MEDICATIONS: Per Anesthesia TOPICAL ANESTHETIC: none CONSENT: The patient understands the risks and benefits of the procedure and understands that these r isks include, but are not limited to: sedation, allergic reaction, infection, perforation and/or bleeding. Alternative means of evaluation and treatment include, among others: physical exam, x-rays, and/or surgical intervention. The patient elects to proceed with this endoscopic procedure. HISORY AND PHYSICAL: 06/25/2019 DESCRIPTION OF PROCEDURE: During intra-op preparation period all mechanical and medical equipment was checked for proper function. Hand hygiene and appropriate measures for infection prevention was taken. After the risks, benefits and alternatives of the procedure were thoroughly explained, Informed consent was verified, confirmed and timeout was successfully executed by the treatment team. The patient was anesthetized with topical anesthesia and the HC54-i03 ([id number]) endoscope was introduced through the mouth and advanced to the second portion of the duoden um. Retroflexion was performed in the stomach and revealed Food noted in the gastric fundus. The gastroscope was then slowly withdrawn and removed. ESOPHAGUS: Candidial esophagitis from proximal esophagus and mid esophagus. Reflux esophagitis in th e distal esophagus, LA grade B. Z line at 42 cms. Oropharyngeal candidiasis noted. STOMACH: Food in the stomach was noted suggesting Diabetic Gastroparesis. Gastritis noted in the gas tric antrum-mild. DUODENUM: The duodenal mucosa showed no abnormalities in the duodenal bulb, 1st part duodenum, and 2n d part duodenum. SPECIMENS REMOVED: No ADVERSE EVENTS: There were no complications. POSTOPERATIVE DIAGNOSIS: 1. Candidial esophagitis from proximal esophagus and mid esophagus. Re flux esophagitis in the distal esophagus, LA grade B. Z line at 42 cms 2. Oropharyngeal candidiasis noted 3. Food in the stomach was noted suggesting Diabetic Gastroparesis. Gastritis noted in the gastric antrum-mild 4. The duodenal mucosa showed no abnormalities in the duodenal bulb, 1st part duodenum, and 2nd part duodenum RECOMMENDATIONS: Start Fluconazole 100 mg every day for 2 weeks. Keep good control of diabetes Start Miralax 17g BID and Dulcolax 10 mg Pr BID Continue PPI BID for 3 months Since the patient had tardive dyskinesia with Reglan; may need to consider erythromycin or Domeprerid one for gastroparesis. REPEAT EXAM: Francisco Briscoe MD eSigned: Francisco Briscoe MD 06/25/2019 10:28 AM cc: PATIENT NAME: Becky Chaparro MR#: [id number]
[2019-06-25] MEDS ORDERED: ROMAZICON (DOSE) ONE (10:39)
[2019-06-25] MEDS ORDERED: ERYTHROMYCIN BASE PO SCH (11:45)
[2019-06-25 11:46] VITALS: BP 164/74
[2019-06-25] MEDS ORDERED: DIFLUCAN 100 MG/NS 100 MG/50 ML IVPB IV SCH (12:00)
[2019-06-25] MEDS: NORVASC PO SCH (12:26)
[2019-06-25] MEDS: PRINIVIL PO SCH (12:26)
[2019-06-25] MEDS: TRANDATE PO SCH ×3 (12:26→17:38)
[2019-06-25] MEDS: PHOSLO PO SCH (12:26)
[2019-06-25] MEDS: PROTONIX PO SCH (12:26)
[2019-06-25] MEDS: LANTUS INSULIN SUBQ SCH (12:27)
[2019-06-25] MEDS: CENTRUM TABLET PO SCH (12:37)
[2019-06-25] MEDS ORDERED: DULCOLAX PO SCH (21:00)
--- NOTE | 2019-06-26 10:02 | DISCHARGE SUMMARY ---
ADMISSION DATE: 06/21/2019 DISCHARGE DATE: 06/25/2019 DISPOSITION: Home. FOLLOWUP: 1. Dr. Lee. 2. Dr. Kay. 3. Dr. Cruz. CONSULTATIONS DURING THIS ADMISSION: 1. Nephrology was consulted, patient was seen by Dr. Kay. 2. GI was consulted, patient was seen by Dr. Cruz. INVASIVE PROCEDURES DONE DURING THIS ADMISSION: EGD was done by Dr. Briscoe. Report shows Latasha esophagitis, reflux esophagitis, oropharyngeal candidiasis, diabetic gastroparesis, normal duodenal mucosa. DIAGNOSES AT THE TIME OF ADMISSION: 1. Generalized abdominal pain. 2. Nausea and vomiting. 3. Uncontrolled diabetes. 4. Uncontrolled hypertension. DIAGNOSES AT THE TIME OF DISCHARGE: 1. Intractable nausea and vomiting on presentation, improved. 2. Diabetic gastroparesis. 3. Diabetes mellitus type 1. 4. Diabetic autonomic enteropathy. 5. Diabetic peripheral neuropathy. 6. Endstage renal disease on hemodialysis Tuesday, Tuesday, and Tuesday. 7. History of seizure disorder. 8. Oropharyngeal and esophageal candidiasis. Patient has been started on fluconazole. DISCHARGE MEDICATIONS: 1. Mirtazapine 45 mg p.o. at bedtime. 2. Pantoprazole 40 mg b.i.d. 3. Phenytoin 100 mg 3 times per day. 4. Lisinopril 40 mg p.o. daily. 5. Amlodipine 10 mg p.o. daily. 6. Pravastatin 80 mg p.o. at bedtime. 7. Labetalol 400 three times per day. 8. Erythromycin 250 p.o. q.8. 9. Insulin glargine 15 units subcutaneous daily. 10. MiraLAX 17 g b.i.d. 11. Fluconazole 200 mg p.o. daily. 12. Amitriptyline 10 mg p.o. at bedtime. PRESENTING COMPLAINT: Nausea, vomiting, generalized abdominal pain. HISTORY OF PRESENTING COMPLAINT: Ms. Chaparro is a [id number] gentleman who is known to the service because of frequent hospitalizations due to diabetes-related complications, came in this time because of nausea and vomiting. She was admitted because of p.o. intolerance. HOSPITAL COURSE: During the hospital course, Ms. Chaparro was initially kept n.p.o. and was started on symptomatic management. Gradually her nausea and vomiting improved and she was able to tolerate some diet. This morning she underwent EGD which result is detailed in the chart. Ms. Chaparro has documented history of very bad reaction to metoclopramide, so recommendations have been given by GI to start her on erythromycin. The EGD also revealed oropharyngeal and esophageal candidiasis. Ms. Chaparro has been started on p.o. fluconazole for a total of 14 days. Ms. Chaparro' blood pressure is now a lot better, systolic is 164 and diastolic of 74. Admission pressure was 243/152. We think Ms. Chaparro is now fairly stable for discharge after dialysis. All the discharge instructions including medication compliance have been discussed with Ms. Chaparro and she voiced understanding. TIME SPENT: For discharge is 35 minutes. cc: MD Vicki Milligan MD Reginald D. Gladish, MD Michael Kelso, MD
== END 2019-06-25 17:59 | disposition home or self-care (01) | DRG 73 ==
LOC: ED 12:12 → SUATTDRO 17:39 → EDIPHOLD 17:39 → 2N 20:09
PROVIDERS: ATTEND Internal Medicine

== ENCOUNTER 2019-08-03 13:11 | Inpatient (IN) ==
[2019-08-03 13:49] LABS: INFLUENZA A NEGATIVE (NEGATIVE); INFLUENZA B NEGATIVE (NEGATIVE)
[2019-08-03] MEDS ORDERED: ZOFRAN ODT PO ONE (14:46)
[2019-08-03 14:52] LABS: BLOOD TYPE ARTERIAL; HCO3-(ACT) 27.2 mmoll (20.0-26.0); METHB 1.1 % (0.0-1.5); O2(CT) 18.7 mL/dL (15.0-23.0); O2HB 93.7 % (95.0-99.0); PCO2(98.6) 33 mmHg (35-45); PO2(98.6) 77 mmHg (60-100); SAMPLE BLOOD; SAO2 96.7 % (95.0-100.0); THB 14.2 g/dL (11.5-17.4)
[2019-08-03 14:56] LABS: ALLEN TEST YES; MODALITY ROOM AIR
[2019-08-03] MEDS ORDERED: ATIVAN ONE (15:18)
[2019-08-03 15:32] LABS: BASO# 0.07 X1000 (0.0-0.2); BASO% 0.9 % (0.0-0.8); EOS# 0.09 X1000 (0.0-0.7); EOS% 1.1 % (0.0-10.0); HEMOGLOBIN 13.1 g/dL (12.0-16.0); IMM GRAN# 0.02 X1000 (0.0-0.04); IMM GRAN% 0.3 % (0.0-0.5); LYMPH# 0.93 X1000 (1.2-3.4); LYMPH% 11.8 % (20.5-51.1); MCH 29.8 PG (27-31); MCV 93.2 FL (81-99); MONO% 13.9 % (1.7-9.3); MPV 10.5 FL (7.4-10.4); NEUT# 5.69 X1000 (1.4-6.5); PLT 310 X1000 (130-400); RDW 19.3 % (11.5-14.5)
[2019-08-03] MEDS ORDERED: MORPHINE IV ONE (15:42)
[2019-08-03] MEDS ORDERED: HUMALOG (PARKWAY) SUBQ ONE (15:42)
--- NOTE | 2019-08-03 15:54 | Diag Imaging Result Doc PS360 ---
EXAM: CHEST-1 VIEW HISTORY: sepsis TECHNIQUE: Single view COMPARISON: 06/18/2019 FINDINGS: The lungs are well expanded. The heart is remains enlarged. The vessels are not distended. Mild increased markings in the lower right lung. No effusion identified. IMPRESSION: Persistent cardiomegaly. Questionable tiny infiltrates in the right lower lung Electronically signed by Brayan Wooten 08/03/2019 3:52 PM
--- NOTE | 2019-08-03 15:56 | EKG Report ---
Test Performed on : 08/03/2019 3:12:20 PM Test Reason : cp Blood Pressure : / mmHG Vent. Rate : 093 BPM Atrial Rate : 093 BPM P-R Int : 162 ms QRS Dur : 084 ms QT Int : 408 ms P-R-T Axes : 069 004 -42 degrees QTc Int : 507 ms Normal sinus rhythm. Cannot rule out Anterior infarct , age undetermined Prolonged QT Abnormal ECG When compared with ECG of 05-JUL-2019 09:43, (Unconfirmed) Inverted T waves have replaced nonspecific T wave abnormality in Inferior leads Unconfirmed Result
[2019-08-03 16:33] LABS: INR 1.2; PROTIME 15.9 Seconds (11.0-16.0); PTT 28.5 Seconds (22.3-41.8)
[2019-08-03] MEDS ORDERED: APRESOLINE IV PRN (17:04)
[2019-08-03 17:37] LABS: CALCIUM 8.6 mg/dL (8.8-10.2); CREATININE 4.4 mg/dL (0.5-0.9); PHOSPHORUS 1.4 mg/dL (2.7-4.5); TOTAL BILIRUBIN 0.6 mg/dL (0.20-1.00); TOTAL PROTEIN 7.1 g/dL (6.3-8.3)
--- NOTE | 2019-08-03 18:00 | PROVIDER DOCUMENTATION ---
This chart was entered by Mami Lobo Scribe, acting as scribe for Jorge Davalos MD. HPI-General Adult - General Chief Complaint: Flu Symptoms Stated Complaint: FLU SX Time Seen by Provider: 08/03/19 14:38 Source: patient Allergies/Adverse Reactions: Patient Allergies Allergy/AdvReac Type Severity Reaction Status Date / Time adhesive Allergy RASH Verified 08/03/19 13:43 Home Medications: Home Medication List Medication Instructions Recorded Confirmed Last Taken Type Clonidine [Catapres] 0.2 mg PO DAILY #120 tab 01/26/18 07/29/19 07/22/19 Rx Epoetin Yasir [Epogen] 10,000 unit SUBQ MoWeFr@0900 vial 01/26/18 07/29/19 07/22/19 Rx LISINOpril [Prinivil] 40 mg PO DAILY #30 tab 01/26/18 07/29/19 07/22/19 Rx Mirtazapine [Remeron] 45 mg PO QHS #90 tab 01/26/18 07/29/19 07/22/19 Rx Phenytoin [Dilantin] 100 mg PO TID #90 cap 01/26/18 07/29/19 07/22/19 Rx Amlodipine [Norvasc] 10 mg PO DAILY #120 tab 05/17/18 07/29/19 07/22/19 Rx Insulin Aspart [Novolog Flexpen] 0 unit SQ AC + HS PRN PRN 12/27/18 07/29/19 07/22/19 History Pravastatin Sodium 80 mg PO HS 12/27/18 07/29/19 07/22/19 History Labetalol [Trandate] 400 mg PO TID #180 tab 12/28/18 07/29/19 07/22/19 Rx Multivitamin with Iron [One Daily 1 ea PO DAILY #100 tab 01/18/19 07/29/19 07/22/19 Rx with Iron] Calcium Acetate 667 mg PO DAILY 04/30/19 07/29/19 07/22/19 History Amitriptyline [Elavil] 10 mg PO HS #30 tab 06/25/19 07/29/19 07/22/19 Rx Bisacodyl [Dulcolax] 10 mg [place] BID supp 06/25/19 07/29/19 07/22/19 Rx Erythromycin Base [Gilbert-Tab] 250 mg PO Q8H #30 tablet. 06/25/19 07/29/19 07/22/19 Rx Fluconazole [Diflucan] 200 mg PO DAILY #14 tab 06/25/19 07/29/19 07/22/19 Rx Insulin Glargine [Lantus Insulin] 15 unit SUBQ DAILY #1 unit 06/25/19 07/29/19 07/22/19 Rx Pantoprazole [Protonix] 40 mg PO BID #60 tab 06/25/19 07/29/19 07/22/19 Rx Polyethylene Glycol 3350 [Miralax] 17 gm PO BID #60 powder, packet 06/25/19 07/29/19 07/22/19 Rx Levetiracetam [Keppra] 250 mg PO BID 14 Days #28 tab 07/23/19 07/29/19 Unknown Rx Azithromycin [Zithromax] 250 mg PO DAILY #6 tab 07/29/19 Unknown Rx - History of Present Illness -Gen Adult Nature of Presenting Problems: Patient is a 39 year old female who presents with multiple complaints. States symptoms of cough, nausea, vomiting, diarrhea and pain to abdomen, chest and back. Reports symptoms started 5 days ago. Does not report fever. States she was suppose to go to dialysis today but did not due to not feeling well. Reports being diagnosed with bronchitis and placed on Zithromax recently. Location of Pain/Injury: reports: chest, abdomen, back Pain Radiation: reports: no radiation Quality of Pain: reports: aching, cramping Severity: reports: mild Onset/Duration: reports: 5 days ago Timing: reports: still present, getting worse Context/Activities at Onset: reports: light activity Associated Symptoms: reports: cough, diarrhea, nausea, vomiting. denies: constipation Similar Symptoms Previously?: Yes Recently seen or treated by another doctor?: Yes Review of Systems - Adult - REVIEW OF SYSTEMS - ADULT Constitutional: reports: no symptoms reported. denies: chills, fever, fatique Eyes: reports: no symptoms reported Ears, Nose, Mouth & Throat: reports: no symptoms reported Cardiovascular: reports: see HPI, chest pain. denies: irregular heart rate, palpitations Respiratory: reports: see HPI, cough. denies: shortness of breath, wheezing Gastrointestinal: reports: see HPI, abdominal pain, diarrhea, nausea, vomiting Genitourinary: reports: no symptoms reported Musculoskeletal: reports: see HPI, back pain. denies: muscle aches, neck pain Integumentary: reports: no symptoms reported Neurological: reports: no symptoms reported Psychiatric: reports: no symptoms reported Endocrine: reports: no symptoms reported Hematologic/Lymphatic: reports: no symptoms reported Allergic/Immunologic: reports: no symptoms reported All Other Systems: Reviewed and Negative Past History - Adult - PAST MEDICAL HISTORY-ADULT Review of Records: reports: Old Records Reviewed, Nursing Assessment Review, Medications Reviewed, Social history reviewed & non-contributory. Major Childhood Illnesses: reports: denies history Cardiovascular: reports: CHF, HTN, hyperlipidemia, other (cardiomyopathy) Respiratory: reports: denies history Gastrointestinal: reports: GERD, other (gastroparesis, eroding esophagus) Obstetrical/Gynecological: reports: denies history Genitourinary: reports: dialysis (MWF), kidney disease Musculoskeletal: reports: denies history Neurological: reports: CVA, Seizures/Epilepsy Psychiatric: reports: anxiety Endocrine/Immune: reports: anemia, Diabetes Other Conditions: reports: cataract/glaucoma, other (VRE) - PRIOR SURGERIES/PROCEDURES Surgical/Procedure History: reports: colonoscopy, cholecystectomy, indwelling device (dialysis access), other (cataract removal; cornea transplant; lap; fee ding tube) - PRIOR HOSPITALIZATIONS Prior Hospitalizations: reports: for other non-related - IMMUNIZATION STATUS Childhood Immunizations: See Nurse Assessment Flu Vaccine: See Nurse Assessment - FAMILY HISTORY Family History: reviewed, not pertinent - SOCIAL HISTORY Smoking: cigarettes (former) Substance Use: denies Physical Exam-General - PHYSICAL EXAM-ADULT Initial Vital Signs Reviewed: Yes - CONSTITUTIONAL General Appearance: alert, mild distress. negative: lethargic - HEAD, EARS, NOSE, MOUTH & THROAT HENMT: normocephalic/atraumatic, moist mucous membranes. negative: hearing d eficit - RESPIRATORY Respiratory: chest non-tender, lungs clear, normal breath sounds. negative: crackles, rhonchi - CARDIOVASCULAR Cardiovascular: normal peripheral pulses, regular rate, rhythm. negative: tachycardia - GASTROINTESTINAL (ABDOMEN) Abdominal Exam: normal bowel sounds, soft, tenderness (epigastric). negative: distended, rigid - MUSCULOSKELETAL Extremity: non-tender, other (2 + pitting edema to bilateral lower extremities. dialysis fistula to right upper arm with positive thrill.). negative: deformity, erythema - SKIN Integumentary: normal color, normal turgor, warm/dry. negative: diaphoresis, rash - NEUROLOGIC Neurologic: grossly normal. negative: aphasia, facial droop - PSYCHIATRIC Psych/Mental Status: oriented x 3, tearful. negative: normal mood/affect Progress - PLAN OF CARE/RESULTS Progress/Plan/Lab Results: Vital Signs - 8 hr 08/03/19 13:19 Temperature 97.6 F Pulse Rate 99 H Respiratory Rate 22 Blood Pressure 216/126 O2 Sat by Pulse Oximetry 100 Laboratory Results - last 24 hr 08/03/19 08/03/19 08/03/19 13:24 13:24 14:35 POC Glucose 342 H Influenza A (Rapid) NEGATIVE Influenza B (Rapid) NEGATIVE Group A Strep Rapid NEGATIVE Orders Category Date Time Status Cardiac Monitoring DIRECTED Care 08/03/19 14:35 Active IV Insertion ORDERED Care 08/03/19 14:35 Active Notify MD of + Sepsis Screen NOW Care 08/03/19 14:35 Active Notify Physician As Ordered Care 08/03/19 14:35 Active CHEST-1 VIEW [RAD] Stat Exams 08/03/19 14:35 Ordered ABG [RESP] Routine Lab 08/03/19 14:36 Ordered BLOOD CULTURE [BLDCUL] Stat Lab 08/03/19 14:35 Uncollected CBC WITH DIFF [HEME] Stat Lab 08/03/19 14:35 Uncollected CK PROFILE [SP CHEM] Stat Lab 08/03/19 14:35 Uncollected COMPREHENSIVE METABOLIC PANEL [CHEM] Stat Lab 08/03/19 14:[address] Stat Lab 08/03/19 13:24 Completed LACTATE, PLASMA [CHEM] Q3H Lab 08/03/19 14:45 Uncollected LACTATE, PLASMA [CHEM] Q3H Lab 08/03/19 17:45 Uncollected LACTATE, PLASMA [CHEM] Q3H Lab 08/03/19 20:45 Uncollected PROTIME WITH INR [COAG] Stat Lab 08/03/19 14:35 Uncollected PTT [COAG] Stat Lab 08/03/19 14:35 Uncollected TROPONIN T Stat Lab 08/03/19 14:35 Uncollected URINALYSIS W/POSS RFLX CULT [URINALYSIS] Stat Lab 08/03/19 14:35 Uncollected strep [DIRECT STREP PL] Stat Lab 08/03/19 13:24 Completed Oxygen Device Stat Oth 08/03/19 14:35 Active Result Diagrams: 08/03/19 15:20 08/03/19 15:20 - EKG 1 Time of EKG reading by physician:: 15:12 EKG Read and Signed by:: Jorge Davalos EKG Interpretation (*Must complete 3 of following elements*): Abnormal (prolonged QT) Rate: 93 Rhythm: normal sinus rhythm Sweet: normal [place] Interval: normal Comments: cannot rule out anterior infarct, age undetermined - XRAY 1 XRAY Study: Chest Impression: See EMR Report ( EXAM: CHEST-1 VIEW HISTORY: sepsis TECHNIQUE: Single view COMPARISON: 06/18/2019 FINDINGS: The lungs are well expanded. The heart is remains enlarged. The vessels are not distended. Mild increased markings in the lower right lung. No effusion identified. IMPRESSION: Persistent cardiomegaly. Questionable tiny infiltrates in the right lower lung Electronically signed by Brayan Wooten 08/03/2019 3:52 PM 08/03/19 1552 Interpreting Physician: Brayan Wooten MD Dictated Date/Time: 08/03/19 1551 cc: Jorge Davalos MD; Vicki Lee MD) - CONSULTS/PCP/HOSPITALIST Notification #1 *Consult/PCP/Hospitalist*: MANNY Pacheco for Hospitalist Time Discussed: 15:14 Reason/Comments: Dr. Davalos consulted with Tara about patient Consult Disposition: other ([facility] states hospitalist will admit when labs result.) #2 Consult: Dr. Ruiz Time Discussed: 16:09 Reason/Comments: Dr. Davalos consulted with Dr. Ruiz about patient. Consult Disposition: Will see in ED, Admit Departure - Departure Date of Disposition Decision: 08/03/19 Time of Disposition Decision: 16:11 DIAGNOSIS: Seizure, End-stage renal disease on hemodialysis, Nausea vomiting and diarrhea Disposition: ADMITTED INPATIENT 09 Certified Medical Emergency: Emergent Condition: Stable Referrals and Follow-Ups: Vicki Lee MD [Primary Care Provider] - - Critical Care Note This patient required my direct & personal management of CC.: No Attestation - Physician/ SARAI Attestation The physician spent face to face time with patient:: Yes Advanced Practice Provider documentation review:: Supervising physician onsite and consulted in the evaluation and care of this patient. The physician did have a face to face encounter with the patient. This chart was documented by the indicated scribe, (Mami Lobo Scribe) and accurately reflects the services I performed and decisions made by me, Jorge Davalos MD, as attested by the provider's signature.
[2019-08-03] MEDS: ROCEPHIN 1 GM in NS 50 ML IV SCH (18:02)
[2019-08-03] MEDS ORDERED: ZITHROMAX 500 MG/NS 500 MG/250 ML IVPB IV SCH (19:00)
[2019-08-03] MEDS: MORPHINE IV PRN ×2 (19:11→23:04)
[2019-08-03] MEDS: ZITHROMAX 500 MG/NS 500 MG/250 ML IVPB IV SCH (22:42)
[2019-08-03] MEDS: HUMALOG SUBQ SCH (22:44)
[2019-08-03] MEDS: DUONEB (A & A) INH SCH ×2 (23:15→23:16)
--- NOTE | 2019-08-04 02:13 | HISTORY AND PHYSICAL ---
PRIMARY CARE PHYSICIAN: Vicki Lee MD DECK LID FITTER: Hardy Kay MD CHIEF COMPLAINT: Cough, nausea, vomiting, diarrhea and abdominal pain for the past 5 days that has progressively worsened. She states she was supposed to go to dialysis today, but felt so bad she could not go and came to the emergency room instead. HISTORY OF PRESENTING ILLNESS: This is a 39-year-old female who presents to [facility] ER with complaints of cough, nausea, vomiting, diarrhea and abdominal pain over the past 5 days that progressively worsened. She states she was unable to go to her dialysis today due to feeling so bad, so she came to the emergency room. Her laboratory data is pending at this time. They do have her creatinine back and it is 4.3. Her chest x-ray showed persistent cardiomegaly and a questionable tiny infiltrate in the right lower lung. She, about 3 hours after arriving, had a seizure witnessed by the ER staff. She was noted to have a blood pressure on arrival of 216/126, and it has come down to 172/112. She will be admitted to the medical unit at [facility] for further evaluation and treatment. PAST MEDICAL HISTORY: Endstage renal disease with dialysis on Tuesday, Tuesday, Tuesday; diabetes type 1; hypertension; seizure; diastolic congestive heart failure with a known ejection fraction of 25%; chronic constipation; esophagitis; gastritis and gastroparesis; CVA. PAST SURGICAL HISTORY: Corneal transplant, an AV fistula in the right arm, cholecystectomy, J- tube placement and removal. FAMILY HISTORY: Her mother had hypertension and diabetes. SOCIAL HISTORY: She denies any tobacco, alcohol or illicit drug use. Currently works at [employer]. ALLERGIES: Adhesive. HOME MEDICATIONS: We will need to obtain a current list, reconcile, review and restart as appropriate. We will place an order for nursing to update and confirm home medications. LABORATORY DATA: Pending at this time, as the original was felt to not possibly be her blood. They did rerun a creatinine that was 4.3, so we are awaiting all of the new labs to be obtained. DIAGNOSTIC DATA: Her chest x-ray showed persistent cardiomegaly with questionable tiny infiltrates in the right lower lung. EKG showed normal sinus rhythm at 93. REVIEW OF SYSTEMS: She denied any fever, chills, blurred vision or dizziness. She did have a cough, abdominal pain, nausea, vomiting and diarrhea. PHYSICAL EXAMINATION: VITAL SIGNS: On arrival she had a temperature of 97.6 degrees, pulse 99, respirations 22, blood pressure was 216/126, saturating 100% on room air. Currently blood pressure is down to 172/112. GENERAL: This is a 39-year-old female who is lying in the bed and answers questions appropriately. HEENT: Normocephalic, atraumatic. Normal ENT inspection. Oropharynx and nares are clear. Eyes: Pupils are equal, round and reactive to light and accommodation. Extraocular movements are intact. NECK: Normal inspection. Normal range of motion. LUNGS: Clear to auscultation bilaterally, with equal lung expansion and chest wall movement. HEART: Regular rate and rhythm. No murmurs, rubs or gallops. ABDOMEN: Soft. There is some tenderness to the epigastric area upon palpation. Bowel sounds are present x4 quadrants. MUSCULOSKELETAL: She had 5/5 strength x4 extremities. She is noted to have 2+ pitting edema to her bilateral lower extremities. Dialysis fistula to her right upper arm with a positive thrill. NEUROLOGICAL: Cranial nerves 2-12 are grossly intact. She had her seizure activity after she was evaluated initially for admission. ASSESSMENT: 1. Right lower lobe pneumonia. 2. Seizure. 3. Uncontrolled hypertension. 4. Endstage renal disease, with dialysis Tuesday, Tuesday, Tuesday. PLAN: She will be admitted to the medical unit, placed on telemetry, O2 per protocol, DuoNeb q.4 hours. Pattern blood sugars with sliding scale insulin. Placed on seizure precautions. We need to update and confirm home medications. We will consult Nephrology. Daily weight, renal diet. We are rechecking all of her laboratory data at this time, as it is possible that the original was not her blood. We will give her hydralazine 10 mg IV q.4 hours p.r.n. for systolic blood pressure greater than 190, diastolic greater than 100. Place her on Rocephin 1 g IV q.24, azithromycin 500 IV q.24, DuoNeb q.4 hours. Recheck labs in the a.m., and further orders after seen by attending and by erp consultant. Dictated by MANNY Rainey for Wood Ruiz MD cc: MANNY Rainey MD Hiteshri S. Bhavsar, MD
--- NOTE | 2019-08-04 02:25 | HISTORY AND PHYSICAL ---
ADDENDUM: Patient seen and examined by myself while she was in the ER. Full note dictated and discussed with nurse practitioner. Patient presented to the ER with multiple complaints, including cough, congestion, nausea, vomiting, diarrhea, abdominal pain, chest and back pain. While she was in the ER, she was noted to have an elevated blood pressure 186/120. She also had a seizure type event while she was in the ER. We are going to admit her to the hospital. Unfortunately, her labs appear to have been incorrectly input in her chart. Her creatinine was 0.6 which certainly seems odd. It was re-ran, her creatinine is around 4. The rest of her labs are currently pending. We are going to admit to the hospital and will follow. Further orders after her labs. cc: Wood Ruiz MD
[2019-08-04] MEDS: DUONEB (A & A) INH SCH ×6 (03:23→23:05)
[2019-08-04] MEDS: HUMALOG SUBQ SCH ×4 (06:44→20:57)
[2019-08-04] MEDS: MORPHINE IV PRN ×3 (06:51→22:13)
[2019-08-04] MEDS ORDERED: HEPARIN IV PRN (07:31)
[2019-08-04] MEDS ORDERED: TIGHT: 0.2 ML/HR FOR DIALYSIS MISC PRN (07:31)
[2019-08-04] MEDS ORDERED: NS 2,000 ML MISC PRN (07:31)
[2019-08-04 07:34] LABS: BASO# 0.05 X1000 (0.0-0.2); BASO% 0.7 % (0.0-0.8); EOS# 0.18 X1000 (0.0-0.7); EOS% 2.5 % (0.0-10.0); HEMATOCRIT 39.7 % (37.0-47.0); HEMOGLOBIN 12.7 g/dL (12.0-16.0); LYMPH# 1.28 X1000 (1.2-3.4); LYMPH% 17.5 % (20.5-51.1); MCH 30.3 PG (27-31); MCV 94.7 FL (81-99); MONO# 1.07 X1000 (0.11-0.59); MONO% 14.6 % (1.7-9.3); MPV 10.5 FL (7.4-10.4); NEUT# 4.75 X1000 (1.4-6.5); NEUT% 64.7 % (42.2-75.2); PLT 278 X1000 (130-400); RBC 4.19 XMIL (4.2-5.4); RDW 19.1 % (11.5-14.5); WBC 7.33 X1000 (4.8-10.8)
[2019-08-04 07:45] LABS: CALCIUM 8.8 mg/dL (8.8-10.2); CREATININE 4.8 mg/dL (0.5-0.9); POTASSIUM 4.2 mmol/L (3.5-5.1)
[2019-08-04] MEDS ORDERED: DULCOLAX PR PRN (11:32)
--- NOTE | 2019-08-04 12:14 | PROGRESS NOTE ---
DATE: 08/04/2019 SUBJECTIVE: Ms. Chaparro is feeling a little bit better. She was eating her lunch and about to go to dialysis. She is a patient of Dr. Lee. This is a 39-year-old who complains of cough and nausea and vomiting when she presented on yesterday. Abdominal pain for 5 days, progressively worsened. She did not make it to dialysis I guess yesterday. PAST MEDICAL HISTORY: End-stage renal disease on dialysis Mondays, Wednesdays and Fridays. Diabetes mellitus type 1, hypertension, seizure disorder, diastolic congestive heart failure with a known ejection fraction 25% so she must have systolic heart failure, chronic constipation, esophagitis, gastritis and gastroparesis. OBJECTIVE: Vital signs: Temperature is 98.2 degrees, pulse 86, respirations 15, blood pressure 168/93. HEENT: Pupils are equal and round. Lungs: Clear in all lung vail. Cardiovascular: Regular rhythm and rate without murmur or S3. Abdomen: Soft. Skin: Warm and dry. Urine output is 940 mL. Blood sugar 212 and 227. ASSESSMENT AND PLAN: 1. Right lower lobe pneumonia. 2. Seizure. 3. Uncontrolled hypertension. 4. End-stage renal disease on dialysis Mondays, Wednesdays, and Fridays. LABORATORY DATA: Her volume status and electrolytes look okay. Get dialysis again today. Hematocrit 39, hemoglobin is 12. Electrolytes: Sodium 137, potassium 4.2, chloride 95, BUN 21, creatinine 4.8, blood sugar 183, 227, 262. cc: Brent Blum MD
[2019-08-04] MEDS: TYLENOL PO PRN ×2 (13:33→21:02)
[2019-08-04] MEDS: MAALOX PLUS LIQUID PO PRN (14:13)
[2019-08-04] MEDS: TRANDATE PO SCH ×2 (15:45→15:59)
[2019-08-04] MEDS: NORVASC PO SCH (15:59)
[2019-08-04] MEDS: PRINIVIL PO SCH (15:59)
--- NOTE | 2019-08-04 19:49 | NEPHROLOGY CONSULTATION ---
DATE: 08/04/2019 REASON FOR CONSULTATION: Evaluate and treat. CONSULTING PRACTITIONER: Tara Kim. HISTORY OF PRESENT ILLNESS: Ms. Chaparro is a 39-year-old woman who is well known to us. She has type 1 diabetes, hypertension, seizure disorder, CKD 5D. She has frequent hospitalizations with her most recent admission being June 21. She has had 3 other ER visits since that time. She states that she had cough with chest discomfort and came to the emergency room on the where she was diagnosed with bronchitis and treated with oral antibiotics. She states that her symptoms worsened and her chest pain worsened such that she was not able to go to her dialysis treatment on yesterday. Ultimately came to the emergency room. No chills or fevers. She did not describe sputum production. She had nausea, vomiting, abdominal discomfort as well. These are better now. Blood pressure was markedly elevated on admission. She has problems with gastroparesis and has trouble taking her home medications. PAST MEDICAL HISTORY: As above. She also has severe dilated cardiomyopathy with LVEF 25%. History CVA, seizure disorder, esophagitis. HOME MEDICATIONS: Include mirtazapine, clonidine, phenytoin, lisinopril, amlodipine, insulin, pravastatin, labetalol, multivitamin, calcium acetate, pantoprazole, fluconazole (recent Latasha esophagitis), amitriptyline, Keppra, azithromycin. ALLERGIES: Adhesive. SOCIAL HISTORY: She lives with her parents here in [place]. FAMILY HISTORY: Otherwise noncontributory. REVIEW OF SYSTEMS: Otherwise noncontributory. PHYSICAL EXAMINATION: Vital Signs: Blood pressure 168/93, heart rate 89, respirations 16, afebrile. General: Young woman lying on her right side. No distress. Skin is warm and dry with multiple scars. Pupils are equal. Conjunctivae are pink. Oropharynx is clear. Tongue is moist. Neck: Supple. Neck vein distention is not appreciated. Heart: Regular with systolic murmur and a venous hum. Lungs: Have equal breath sounds. No crackles or wheezes. Abdomen: Soft, nontender. Bowel sounds present. Extremities: Minimal edema. No clubbing or cyanosis. IMPRESSION: 1. Chronic kidney disease 5D. She will have her routine outpatient hemodialysis prescription today to accommodate yesterday's missed treatment. Electrolytes, acid-base and volume status are really in target. 2. Severe hypertension. Blood pressure is improved with p.r.n. therapy. Nausea is better so I would advocate for restarting her home medications at this point. cc: Hardy Kay MD
[2019-08-04] MEDS: ZITHROMAX 500 MG/NS 500 MG/250 ML IVPB IV SCH (21:02)
[2019-08-04] MEDS: ROCEPHIN 1 GM in NS 50 ML IV SCH (21:02)
[2019-08-05] MEDS: DUONEB (A & A) INH SCH ×6 (03:18→23:34)
[2019-08-05] MEDS: HUMALOG SUBQ SCH ×4 (06:20→21:09)
[2019-08-05] MEDS: MORPHINE IV PRN ×4 (06:21→22:00)
[2019-08-05] MEDS: PRINIVIL PO SCH (08:29)
[2019-08-05] MEDS: NORVASC PO SCH (08:29)
[2019-08-05] MEDS: TRANDATE PO SCH ×3 (08:29→18:26)
[2019-08-05] MEDS: MAALOX PLUS LIQUID PO PRN (12:00)
--- NOTE | 2019-08-05 15:19 | PROGRESS NOTE ---
DATE: 08/05/2019 SUBJECTIVE: She was sleeping easy to arouse. She says she does feel better. She has been eating a little better. Her breathing is more comfortable. She is still coughing. OBJECTIVE: Remains afebrile. Temperature 97.1 degrees, pulse 90, respirations 18, blood pressure 141/85.HEENT: Pupils are equal and round. Lungs: Clear in all lung vail. Cardiovascular: Regular rhythm and rate without murmur or S3. Abdomen: Soft. Skin: Warm and dry. DATA: Urine output is 2100 mL. ASSESSMENT AND PLAN: 1. Chronic kidney disease stage 5D. Continue routine outpatient hemodialysis prescription and electrolytes, acid base and volume status look on target. 2. Severe hypertension. Blood pressure appears much better. 3. History of seizure disorder. 4. Right lower lobe pneumonia, so treating her with azithromycin and ceftriaxone. I think we can stop the azithromycin and check another chest x-ray in the morning. cc: Brent Blum MD
[2019-08-05] MEDS: ROCEPHIN 1 GM in NS 50 ML IV SCH (18:17)
[2019-08-05] MEDS: ZOFRAN IV PRN (18:32)
[2019-08-06] MEDS: MAALOX PLUS LIQUID PO PRN ×3 (01:09→16:37)
[2019-08-06] MEDS: ZOFRAN IV PRN (03:28)
[2019-08-06] MEDS: DUONEB (A & A) INH SCH ×5 (03:42→23:55)
[2019-08-06] MEDS: MORPHINE IV PRN ×3 (06:12→19:21)
[2019-08-06] MEDS: HUMALOG SUBQ SCH ×4 (06:12→21:34)
[2019-08-06] MEDS ORDERED: NS 2,000 ML MISC PRN (07:02)
[2019-08-06] MEDS ORDERED: TAZIDIME 2 GM in NS 100 ML IV SCH (09:00)
[2019-08-06] MEDS: PROTONIX IV SCH ×2 (09:39→21:15)
[2019-08-06] MEDS: TRANDATE PO SCH ×3 (12:20→18:56)
--- NOTE | 2019-08-06 12:48 | Diag Imaging Result Doc PS360 ---
EXAM: CHEST-PORTABLE HISTORY: pneumonia TECHNIQUE: Single view COMPARISON: 08/03/2019 FINDINGS: The lungs are well expanded. The heart is mildly prominent. The vessels are not distended. There are no infiltrates. No effusion identified. IMPRESSION: No definite pneumonia Electronically signed by Brayan Wooten 08/06/2019 12:46 PM
--- NOTE | 2019-08-06 13:36 | GASTROENTEROLOGY CONSULTATION ---
DATE: 08/06/2019 REASON FOR CONSULTATION: Latasha esophagitis with nausea and vomiting. HISTORY OF PRESENT ILLNESS: Ms. Chaparro is a 39-year-old Ang[place] female who presented to the ER the day before yesterday with bronchitis, and she said that she had received some antibiotics, and was sent home. She then went to [facility] yesterday with complaints of nausea, vomiting, her emesis was dark brown, and her bowel movements was light brown. The patient mentioned that she has no appetite and, she says that she has lost a bunch of weight, but she does not know how much approximately she has lost. While she was at [facility], she mentioned having a seizure. Today, the patient was in the dialysis unit receiving her dialysis. An EGD was done with Dr. Briscoe on 11/28/2018. At that time, she had gastritis with erosions, and positive H pylori. We had seen the patient in May when she came in with the symptoms of nausea, vomiting, and abdominal pain. At that time, she had mentioned that she vomited coffee-ground emesis, and she had eaten some chicken and fries the previous night, and had abdominal pain describing it as a soreness all over. The patient previously was also admitted on 06/07 for her DKA. She had not taken her insulin at that time. She has mentioned that she had ran out of her insulin, and her sugars were almost above 500. We did an EGD on 06/25, and the findings were Latasha esophagitis from proximal esophagus and mid esophagus that reflects esophagitis in the distal esophagus, LA grade B, oropharyngeal candidiasis, food in the stomach suggesting diabetic gastroparesis and gastritis noted in the gastric antrum, and the duodenal mucosa showed abnormalities in the duodenal bulb, first part of the duodenum, and the second part of the duodenum. She does have a history of hypertension, hyperlipidemia, diabetes type 1, esophagitis, gastritis, and end-stage renal disease. She is on dialysis Tuesday, Tuesday, and Tuesday. The patient has a fistula on the right arm. Today, the patient denied any fever or chills, but did complained of cough, congestion, nausea, vomiting, diarrhea, and abdominal pain. A chest x-ray on 08/03 has showed persistent cardiomegaly, and questionable tiny infiltrates in the right lower lung. PAST MEDICAL HISTORY: End-stage renal disease on dialysis Tuesday, Tuesday, Tuesday. Diabetes type 1, hypertension, congestive heart failure, chronic constipation, esophagitis, gastritis, gastroparesis, Latasha esophagitis, oropharyngeal Candidiasis, and reflux esophagitis. PAST SURGICAL HISTORY: She had a surgery on her forehead, right upper arm shunt, history of a PEG placement, and a cholecystectomy. FAMILY HISTORY: Patient has a positive family history of hypertension and diabetes. SOCIAL HISTORY: She is single. She lives with her parents. She has denied any smoking, alcohol, or illicit drug use. ALLERGIES: The patient is allergic to adhesive, Reglan caused Tardive dyskinesia. MEDICATIONS: 1. Epogen 10,000 units subcutaneous. 2. Remeron 45 mg at bedtime. 3. Clonidine 0.2 mg p.o. daily. 4. Dilantin 100 mg p.o. 3 times a day. 5. Lisinopril 40 mg p.o. daily. 6. Amlodipine 10 mg daily. 7. Insulin NovoLog FlexPen. 8. Pravastatin sodium 80 mg at bedtime. 9. Labetalol 400 mg 3 times a day. 10. Multivitamin with iron 1 tablet. 11. Calcium acetate 667 mg p.o. daily. 12. Erythromycin base 250 mg every 8 hours. 13. MiraLAX 17 grams p.o. daily. 14. Protonix 40 mg twice a day. 15. Diflucan 200 mg daily. 16. Dulcolax 10 mg p.r.n. b.i.d. 17. Amitriptyline 10 mg p.o. at bedtime. 18. Keppra 250 mg p.o. 19. Azithromycin 250 mg p.o. 20. Insulin Lantus 16 units sq. REVIEW OF SYSTEMS: As per HPI. Otherwise, 12 point review of system is negative. PHYSICAL EXAMINATION: Vital Signs: Temperature 96.7, pulse 80, respirations 16, blood pressure 129/75, and oxygen saturation 96% on room air. The patient's weight is 124 pounds. BMI is 22.0 kg/m2. General: She is alert and oriented x3 currently in the dialysis unit receiving her dialysis answering questions appropriately, and in no acute distress. HEENT: Pale conjunctivae. No icterus. PERRL. Neck: Supple. Lungs: Clear to auscultation in the anterior vail. Cardiovascular: Regular rate and rhythm. Abdomen: Soft. Generalized tenderness. Nondistended. Active bowel sounds heard in all 4 quadrants. Extremities: No clubbing, no cyanosis, no edema. Pedal pulses 2+ present bilaterally. Neurologic: Alert and oriented x3. Nonfocal. Cranial nerves 2-12 grossly intact. LABORATORY DATA: Hematology is from 08/04. WBC 7.33, RBC 4.19, hemoglobin 12.7, hematocrit 39.7, and platelet count is 278,000. PT 15.9, INR 1.20. Sodium 137, potassium 4.2, chloride 95, carbon dioxide 22, anion gap 20, BUN 21, creatinine 4.8, glucose 262, calcium 8.8, magnesium 3.1, total bilirubin 0.60, AST is 59, ALT 43, alkaline phos 443, plasma lactate 1.4, amylase 48, lipase 5, and albumin 4.0. IMAGING: Her chest x-ray on 08/03 showed persistent cardiomegaly, questionable tiny infiltrates in the right lower lung. IMPRESSION AND PLAN: Chest pain Nausea and vomiting Abdominal pain GERD Gastritis Esophagitis Candidal esophagitis Oropharyngeal candidiasis ESRD on dialysis Gastroparesis Type I diabetes Seizures PLAN: Ms. Chaparro is a 39-year-old female with the history of gastroparesis and ESRD, GI has been consulted for her nausea and vomiting. The patient is currently on GI prophylaxis Protonix 40 mg IV twice a day for her GERD. The patient has denied any bowel movements today, but she did have one yesterday. The patient is receiving MiraLAX and Dulcolax as her bowel regimen. Her H & H today is 12.7 and 39.7, she is hemodynamically stable. We will monitor the patient for now and if her condition worsens or her nausea and vomiting has not improved, we will plan to do an EGD. The plan was discussed with Dr. Briscoe. Thank you for the consult. Please call us for any further questions or concerns. Dictated by MANNY Nowak for Francisco Briscoe MD cc: Francisco Briscoe MD I have seen and examined the patient myself and I agree with the above plan of care. Discussed the above with the patient and all questions were answered. MTDD
--- NOTE | 2019-08-06 16:31 | PROVIDER PROGRESS NOTE ---
Progress Note Subjective: Pt complains of non productive cough, n/v, and back pain, amd costochondritis pain. Objective: temp 97.6, pulse 82, respirations 15, blood pressure 194/98, O2 sat 100% on room air. General: chronically ill appearing young -[place] female lying in bed resting until aroused to verbal stimuli. HEENT: normocephalic, atraumatic, mucous membranes moist, trachea midline Skin: open lesion to bridge of nose and left corner of mouth. Neck: supple, no JVD Cardiovascular: S1S2 hum Respiratory: clear bilaterally anterior Abdominal: soft, tender, nondistended, hypoactive bowel sounds : non inspected Extremities: left fistula in place with palpable pulse. no clubbing, cyanosis, or edema Neurologic: alert and oriented Labs: intake 480, output 0 Impression: Chronic kidney disease stage 5D. Patient will have her routine hemodialysis, 2k, 2.5Ca. No changes. Blood pressure. above target. On home meds. Likely due to nausea. Observe for now. Anemia. In target. Electrolytes and acid base balance. Stable on last labs. Volume status. Euvolemic on exam. Nutrition. Unable to eat due to nausea. Consult GI for recent diagnosis of madhu esophagitis. Ambulation. Unable to move due to feeling unwell. Medication review. Change rocephin to Fortaz.
[2019-08-06] MEDS: PRINIVIL PO SCH (16:37)
[2019-08-06] MEDS: NORVASC PO SCH (16:37)
[2019-08-06] MEDS: MIRALAX PO SCH ×2 (17:27→21:15)
[2019-08-06] MEDS: SODIUM CHLORIDE 0.9% INJ SCH (21:15)
[2019-08-06] MEDS: DULCOLAX PR SCH ×2 (21:16)
--- NOTE | 2019-08-06 22:25 | PROGRESS NOTE ---
DATE: 08/06/2019 SUBJECTIVE: Ms. Chaparro goldstein a little better day. She says she still has nausea, but she was able to get a little bit of food down. She has remained afebrile. Vital signs are stable. Her volume status and electrolytes look okay. We have not had any reports of repeat seizure or tonic-clonic activity. She states that she does not need anything for her bowels. I think we probably ought to implement some physical therapy if we can, and continue to try and get her to pursue discharge plans. cc: Brent Blum MD MTDD
[2019-08-07] MEDS: DUONEB (A & A) INH SCH ×6 (03:53→23:37)
[2019-08-07] MEDS: HUMALOG SUBQ SCH ×4 (06:48→20:54)
[2019-08-07] MEDS: MORPHINE IV PRN ×3 (06:57→21:11)
[2019-08-07] MEDS: MAALOX PLUS LIQUID PO PRN ×2 (08:50→16:56)
[2019-08-07] MEDS: TRANDATE PO SCH ×3 (08:50→20:52)
[2019-08-07] MEDS: PRINIVIL PO SCH (08:50)
[2019-08-07] MEDS: NORVASC PO SCH (08:50)
[2019-08-07] MEDS: SODIUM CHLORIDE 0.9% INJ SCH ×2 (08:51→20:53)
[2019-08-07] MEDS: PROTONIX IV SCH ×2 (08:51→20:53)
[2019-08-07] MEDS: MIRALAX PO SCH ×2 (08:55→22:45)
[2019-08-07] MEDS ORDERED: ERYTHROMYCIN BASE 250 MG PO SCH (10:45)
[2019-08-07] MEDS ORDERED: TAZIDIME 2 GM in NS 100 ML IV SCH (11:00)
--- NOTE | 2019-08-07 11:44 | GASTROENTEROLOGY PROGRESS NOTE ---
DATE: 08/07/2019 SUBJECTIVE: Ms. Chaparro is a 39-year-old female, resting in bed. The patient has complained of slight nausea, but has denied any vomiting or abdominal pain and she said she was able to tolerate her breakfast well. OBJECTIVE: Vital signs: Temperature 97.5 degrees, pulse 82, respirations 13, blood pressure 155/78, oxygen saturation 96% on room air. Her weight is 119 pounds. BMI is 21.1 kg/m2. General: She is alert, oriented x3, and in no acute distress. HEENT: Pale conjunctivae. No icterus. PERRL. Neck: Supple. Lungs: Clear to auscultation in the anterior vail. Cardiovascular: Regular rate and rhythm. Abdomen: Soft, nontender, nondistended. Active bowel sounds heard in all 4 quadrants. Extremities: No clubbing, no cyanosis, no edema. Pedal pulses 2+ present bilaterally. Neurologic: She is alert and oriented x3. LABORATORY DATA: Hemoglobin is from 08/04/2019, hemoglobin 12.7, hematocrit 39.7, WBC is 7.33, RBC 4.19, platelet count 278,000. Sodium 137, potassium 4.2, chloride 95, carbon dioxide 22, anion gap 20, BUN 21, creatinine 4.8, calcium 8.8, and magnesium 3.1. IMAGING: Chest x-ray on 08/06/2019 showed no definite pneumonia. IMPRESSION AND PLAN; 1. Nausea and vomiting. 2. Abdominal pain. 3. GERD. 4. Gastritis. 5. Esophagitis. 6. Candidal esophagitis. 7. Oropharyngeal madhu. 8. ESRD on disease dialysis. 9. Gastroparesis. 10. Type 1 diabetes. 11. Seizures. PLAN: Ms. Chaparro is a 39-year-old female with a history of gastroparesis and end-stage renal disease. GI is following her for her nausea and vomiting. The patient currently has denied any vomiting but has slight nausea and is able to tolerate her diet well. For her nausea, she is on antiemetics, Zofran 4 mg every 4 hours as needed. She is on GI prophylaxis, Protonix 40 mg IV twice a day. The patient is on a bowel regimen, MiraLAX 17 g and Dulcolax 10 mg. The patient is on Diflucan 200 mg for candidal esophagitis per PCP. She is receiving Lantus and Humalog on sliding scale for her diabetes. We will continue to monitor the patient and follow the plan of care per PCP. If patient's nausea and vomiting worsens, we might plan to do an EGD. This plan was discussed with Dr. Cruz. Please call us for any further questions or concerns. Dictated by MANNY Nowak for Jorge Cruz MD Physician Attestation I have seen and examined the patient. I have discussed and reviewed the note by Natali BRYANT and agree with findings and plan as documented with the following exceptions. In brief, Ms. Becky Chaparro is a 39 year old woman with ESRD on HD, IDDM1 with gastroparesis and recent diagnosis of LA grade B and Madhu esophagitis, chronic constipation who presents gastroparesis exacerbation. She denies persistent N/V and is tolerating PO without dysphagia or abdominal pain. +BMs. No rectal bleeding or melena. Will transition PPI from IV to PO BID. Stop erythromycin. Change zofran to 4mg AC and HS scheduled. Decreased diflucan to 100mg daily; she should have had adequate course of treatment already. Consider discontinuing if she does not have odynophagia or oropharyngeal thrush on exam. Small frequent low fat meals. Control blood sugars. HD per renal.On bowel regimen. Will follow with you. Please call with questions. MTDD
[2019-08-07] MEDS ORDERED: DIPRIVAN 1% ONE (12:42)
--- NOTE | 2019-08-07 12:47 | PROVIDER PROGRESS NOTE ---
Progress Note Subjective: Pt voices feeling better, less cough and nausea, currently eating breakfast without difficulty. Objective: temp 97.9, pulse 78, respirations 16, blood pressure 125/73, 02 sat 96% on room air. General: chronically ill appearing young -[place] female sitting up in bed eating breakfast. HEENT: normocephalic, atraumatic, mucous membranes moist, trachea midline Skin: open lesion to bridge of nose and left corner of mouth. Neck: supple, no JVD Cardiovascular: S1S2, regular rate and rhythm, no gallop. Hum. Respiratory: clear bilaterally anterior Abdominal: soft, nontender, nondistended, hypoactive bowel sounds : non inspected Extremities: left fistula in place with palpable pulse. no clubbing, cyanosis, or edema Neurologic: alert and oriented Labs: intake 0, output 1000 Impression: Chronic kidney disease stage 5D. Patient will have her routine hemodialysis, 2k, 2.5Ca. No changes. Blood pressure. above target. On home meds. Likely due to nausea. Observe for now. Anemia. In target. Electrolytes and acid base balance. Stable on last labs. Volume status. Euvolemic on exam. Nutrition. Unable to eat due to nausea. Consult GI for recent diagnosis of madhu esophagitis. Ambulation. Unable to move due to feeling unwell. Medication review. Change rocephin to Fortaz.
--- NOTE | 2019-08-07 16:53 | Diag Imaging Result Doc PS360 ---
EXAM: CHEST-PORTABLE INDICATION: dyspnea TECHNIQUE: 2 views COMPARISON: 08/06/2019 FINDINGS: There is increased central vasculature and perihilar infiltrates most compatible with pulmonary edema and pulmonary venous congestion. There is no discrete pleural fluid collection or pneumothorax. There is stable cardiomegaly. IMPRESSION: Cardiomegaly and suggestion of pulmonary venous congestion and interstitial edema. Electronically signed by Pop Mac 08/07/2019 4:50 PM
--- NOTE | 2019-08-07 19:46 | PROGRESS NOTE ---
DATE: 08/07/2019 SUBJECTIVE: Patient has no major complaints. OBJECTIVE: Blood pressure 155/78, heart rate of 82, respiratory rate of 13, temperature 97.5 degrees, 96% on room air.Cardiovascular: Regular rate and rhythm. Pulmonary: Bilateral breath sounds. Clear to auscultation. GI: Soft, nontender, nondistended. Bowel sounds were positive. LABORATORY DATA: White count, I do not have any data today. Phenytoin was 0.8. Keppra was 20.5 which is therapeutic. PROBLEM LIST: 1. Nausea and vomiting that seems better. Gastroenterology is following. Continue supportive measures. Continue bowel regimen. 2. Cough. Unclear what this arises from. We will get a chest x-ray. She certainly could be volume overloaded or had other issues contributing. We will continue to follow. 3. End-stage renal. She is getting dialysis per Dr. Kay on her regular schedule. 4. Diabetes. DISPOSITION: I think probably we can get her out of here soon. We will continue to follow. cc: Danny Castellanos MD
[2019-08-07] MEDS ORDERED: ERYTHROMYCIN BASE PO SCH (20:00)
[2019-08-07] MEDS: ELAVIL PO SCH (20:52)
[2019-08-07] MEDS: KEPPRA PO SCH (20:52)
[2019-08-07] MEDS: REMERON PO SCH (20:52)
[2019-08-07] MEDS: PRAVACHOL PO SCH (20:53)
[2019-08-07] MEDS ORDERED: MIRALAX PO SCH (21:00)
[2019-08-07] MEDS ORDERED: PROTONIX PO SCH (21:00)
[2019-08-07] MEDS: ZOFRAN IV PRN (21:11)
[2019-08-07] MEDS: DULCOLAX PR SCH (22:44)
[2019-08-08] MEDS: DUONEB (A & A) INH SCH ×6 (03:42→23:37)
[2019-08-08 06:02] LABS: BASO# 0.06 X1000 (0.0-0.2); BASO% 0.9 % (0.0-0.8); EOS# 0.18 X1000 (0.0-0.7); EOS% 2.6 % (0.0-10.0); HEMATOCRIT 37.5 % (37.0-47.0); HEMOGLOBIN 11.7 g/dL (12.0-16.0); IMM GRAN# 0.02 X1000 (0.0-0.04); IMM GRAN% 0.3 % (0.0-0.5); LYMPH# 0.73 X1000 (1.2-3.4); LYMPH% 10.7 % (20.5-51.1); MCH 30.2 PG (27-31); MCHC 31.2 g/dL (33-37); MCV 96.9 FL (81-99); MONO% 10.2 % (1.7-9.3); MPV 9.9 FL (7.4-10.4); NEUT# 5.15 X1000 (1.4-6.5); NEUT% 75.3 % (42.2-75.2); PLT 264 X1000 (130-400); RBC 3.87 XMIL (4.2-5.4); RDW 18.7 % (11.5-14.5); WBC 6.84 X1000 (4.8-10.8)
[2019-08-08] MEDS ORDERED: NS 2,000 ML MISC PRN (06:08)
[2019-08-08] MEDS ORDERED: HEPARIN IV PRN (06:08)
[2019-08-08] MEDS ORDERED: TIGHT: 0.2 ML/HR FOR DIALYSIS MISC PRN (06:08)
[2019-08-08] MEDS: MORPHINE IV PRN (06:12)
[2019-08-08] MEDS: ZOFRAN PO SCH ×4 (06:12→21:32)
[2019-08-08] MEDS: HUMALOG SUBQ SCH ×4 (06:13→21:13)
[2019-08-08 06:25] LABS: ALBUMIN 3.4 g/dL (3.5-5.0); CALCIUM 8.8 mg/dL (8.8-10.2); CREATININE 4.8 mg/dL (0.5-0.9); PHOSPHORUS 2.1 mg/dL (2.7-4.5); POTASSIUM 4.6 mmol/L (3.5-5.1)
[2019-08-08] MEDS ORDERED: REGLAN PO SCH (07:00)
[2019-08-08] MEDS ORDERED: ZOFRAN IV PRN (07:00)
[2019-08-08] MEDS ORDERED: ZOFRAN PO SCH (07:00)
[2019-08-08] MEDS ORDERED: PRINIVIL PO SCH (09:00)
[2019-08-08] MEDS ORDERED: LANTUS INSULIN SUBQ SCH (09:00)
[2019-08-08] MEDS ORDERED: DIFLUCAN PO SCH ×2 (09:00)
--- NOTE | 2019-08-08 12:00 | GASTROENTEROLOGY PROGRESS NOTE ---
DATE: 08/08/2019 SUBJECTIVE: Ms. Becky Chaparro is a 39-year-old female. She was resting in bed at the dialysis unit receiving her dialysis. The patient has denied any nausea, vomiting, or abdominal pain. OBJECTIVE: Vital Signs: Temperature 98.4 degrees, pulse 74, respirations 14, blood pressure 113/62, oxygen saturation 97% on room air. The patient's weight is 121 pounds. BMI is 21.4 kg/m2. General: She is alert and oriented x3, and in no acute distress. HEENT: Pale conjunctivae. No icterus. PERRL. Neck: Supple. Lungs: Clear to auscultation in the anterior vail. Cardiovascular: Regular rate and rhythm. Abdomen: Soft, nontender, nondistended. Active bowel sounds heard in all 4 quadrants. Extremities: No clubbing, no cyanosis, no edema. Pedal pulses 2+ present bilaterally. Neurologic: She is alert and oriented x3. DIAGNOSTIC DATA: WBCs 6.84, RBC 3.87, hemoglobin 11.7, hematocrit 37.5, platelet count is 264,000. Sodium is 136, potassium 4.6, chloride 99, carbon dioxide 13, anion gap 24, BUN 26, creatinine 4.8, glucose 319. Calcium 8.8. Phosphorus 2.1. Chest x-ray on 08/07/2019 showed cardiomegaly and suggestion of pulmonary venous congestion and interstitial edema. IMPRESSION AND PLAN 1. Nausea and vomiting. 2. Abdominal pain. 3. Gastroesophageal reflux disease. 4. Gastritis. 5. Esophagitis. 6. Candidal esophagitis. 7. Oropharyngeal candidiasis. 8. End-stage renal disease, on dialysis. 9. Gastroparesis. 10. Type 1 diabetes. 11. Seizures PLAN: Ms. Chaparro is a 39-year-old female, with a history of gastroparesis and end- stage renal disease. GI is following her for her nausea and vomiting. The patient has denied having any nausea or vomiting, and she is able to tolerate the diet fairly well. Her Zofran has been changed to 4 mg before meals. Diflucan has been decreased to 100 mg. The patient has been advised to have small, frequent low-fat meals. Patients nausea and vomiting is under control, we will continue to monitor the patient and follow the plan of care per PCP. This plan was discussed with Dr. Cruz. Please call us for any further questions or concerns. Dictated by MANNY Nowak for Jorge Cruz MD Physician Attestation I have seen and examined the patient. I have discussed and reviewed the note by Natali BRYANT and agree with findings and plan as documented with the following exceptions. In brief, Ms. Becky Chaparro is a 39 year old woman with ESRD on HD, IDDM1 with gastroparesis and recent diagnosis of LA grade B and Latasha esophagitis, chronic constipation who presents gastroparesis exacerbation. She denies persistent N/V and is tolerating PO without dysphagia or abdominal pain. +BMs. No rectal bleeding or melena. Recommend stopping diflucan. Continue zofran with meals and bowel regimen. Will sign off. Please call with questions. MTDD
[2019-08-08] MEDS: MAALOX PLUS LIQUID PO PRN (12:56)
[2019-08-08] MEDS ORDERED: HUMULIN R IV ONE (14:29)
[2019-08-08] MEDS: THERA M PLUS PO SCH (14:56)
[2019-08-08] MEDS: PHOSLO PO SCH (14:56)
[2019-08-08] MEDS: KEPPRA PO SCH ×2 (14:56→21:31)
--- NOTE | 2019-08-08 15:09 | PROGRESS NOTE ---
DATE: 08/08/2019 SUBJECTIVE: She really has no major complaints except for shortness of breath and cough. OBJECTIVE: Vital Signs: Blood pressure is 113/62, heart rate 77, respiratory rate 17, temperature 98.4 degrees. Cardiovascular: Regular rate and rhythm. Pulmonary: Bilateral breath sounds clear to auscultation. GI: Soft, nontender, nondistended. Bowel sounds are positive. LABORATORY DATA: BUN and creatinine 26 and 4.8, but her carbon dioxide went down to 13, and she had positive acetone. Repeat sugar is down to 605. PROBLEM LIST: 1. Early diabetic ketoacidosis. She has gotten her Lantus which she gets her Lantus around 3:00 and repeat her labs if she is still in diabetic ketoacidosis we may have to consider some intravenous insulin and a tighter sliding scale. Continue her Lantus and follow. 2. Hypertension is stable. 3. Gastroparesis. She is on her regular medications. Seems to be doing okay. 4. Oral and candidal esophagitis. We will continue fluconazole. DISPOSITION: I was actually anticipating discharging her here today, but we will need to see how her numbers look first. cc: Danny Castellanos MD
[2019-08-08] MEDS: CATAPRES PO SCH (15:11)
[2019-08-08] MEDS: MIRALAX PO SCH ×2 (15:11→21:12)
[2019-08-08] MEDS: NORVASC PO SCH (15:12)
[2019-08-08] MEDS: PROTONIX PO SCH ×2 (15:12→21:32)
[2019-08-08] MEDS: PRINIVIL PO SCH (15:12)
[2019-08-08] MEDS: TRANDATE PO SCH ×3 (15:12→21:32)
[2019-08-08 15:43] LABS: CALCIUM 8.6 mg/dL (8.8-10.2); CREATININE 2.5 mg/dL (0.5-0.9); POTASSIUM 3.9 mmol/L (3.5-5.1)
[2019-08-08] MEDS ORDERED: TAZIDIME 2 GM in NS 100 ML IV ONE (17:00)
[2019-08-08] MEDS: TYLENOL PO PRN (17:17)
[2019-08-08] MEDS: DULCOLAX PR SCH (21:10)
[2019-08-08] MEDS: REMERON PO SCH (21:31)
[2019-08-08] MEDS: PRAVACHOL PO SCH (21:31)
[2019-08-08] MEDS: ELAVIL PO SCH (21:32)
--- NOTE | 2019-08-08 21:33 | NEPHROLOGY PROGRESS NOTE ---
DATE: 08/08/2019 SUBJECTIVE: She is on dialysis currently. She feels like she is improving and hoping for discharge today. Pain is improved. No nausea or vomiting. OBJECTIVE: Vital Signs: Blood pressure 121/64, heart rate 82, respiration 18, afebrile. General: No acute distress. Skin: Warm and dry. Neck: Neck veins are not appreciated. Heart: Regular. Lungs: Equal. No crackles. Abdomen: Soft, nontender. Bowel sounds present. Extremities: Minimal edema. IMPRESSION: 1. Chronic kidney disease 5D. Currently on dialysis. Continue current care. 2. Metabolic acidosis. Worsening. I did check her acetone which came back moderately positive. Note that Dr. Castellanos is addressing this. No other changes. cc: Hardy Kay MD
[2019-08-09] MEDS: DUONEB (A & A) INH SCH ×4 (03:37→15:45)
[2019-08-09] MEDS: TYLENOL PO PRN ×2 (04:20→10:55)
[2019-08-09] MEDS: ZOFRAN PO SCH ×3 (06:19→16:27)
[2019-08-09] MEDS: HUMALOG SUBQ SCH ×3 (06:19→16:31)
[2019-08-09] MEDS ORDERED: LANTUS INSULIN SUBQ SCH (09:00)
[2019-08-09] MEDS: NORVASC PO SCH (10:20)
[2019-08-09] MEDS: PHOSLO PO SCH (10:20)
[2019-08-09] MEDS: TRANDATE PO SCH ×2 (10:20→16:27)
[2019-08-09] MEDS: THERA M PLUS PO SCH (10:20)
[2019-08-09] MEDS: PRINIVIL PO SCH (10:20)
[2019-08-09] MEDS: MIRALAX PO SCH (10:20)
[2019-08-09] MEDS: KEPPRA PO SCH (10:20)
[2019-08-09] MEDS: CATAPRES PO SCH (10:20)
[2019-08-09] MEDS: PROTONIX PO SCH (10:20)
[2019-08-09] MEDS: MAALOX PLUS LIQUID PO PRN (11:20)
--- NOTE | 2019-08-09 13:25 | PROVIDER PROGRESS NOTE ---
Progress Note Subjective: Voices anxiousness and seeing cartoon characters in the room at times and knows this is not normal. She says she feels her cough and back pain are getting worse. Objective: 98.0, pulse 82, respirations 10, blood pressure 113/57, 02 sat 98% on room air. General: chronically ill appearing young -Finnish female lying in bed in no acute distress HEENT: normocephalic, atraumatic, mucous membranes moist, trachea midline Skin: healing scab to bridge of nose and left corner of mouth. Neck: supple, no JVD Cardiovascular: S1S2, regular rate and rhythm, no gallop. Hum. Respiratory: clear bilaterally anterior Abdominal: soft, nontender, nondistended, hypoactive bowel sounds : non inspected Extremities: left fistula in place with positive thrill and bruit. no clubbing, cyanosis, or edema Neurologic: alert and oriented to person, place, and time. Labs: intake 922, output 971. Impression: Chronic kidney disease stage 5D. Patient had her routine hemodialysis yesterday, 2k, 2.5Ca. Blood pressure. In target. Anemia. In target. Electrolytes and acid base balance. Stable. Volume status. Euvolemic on exam. Nutrition. Tolerating small portions. Ambulation. Up with assist. Hallucinations. I stopped her Remeron. Medication review. No change.
[2019-08-09 16:40] VITALS: BP 121/72
[2019-08-09 17:41] LABS: CALCIUM 8.8 mg/dL (8.8-10.2); CREATININE 4.1 mg/dL (0.5-0.9); POTASSIUM 3.7 mmol/L (3.5-5.1)
--- NOTE | 2019-08-11 15:05 | DISCHARGE SUMMARY ---
ADMISSION DATE: 08/03/2019 DISCHARGE DATE: 08/09/2019 DISCHARGE DIAGNOSES: 1. Diabetic ketoacidosis, resolved. 2. Hypertension, stable/ 3. Gastroparesis. CONSULTATIONS: Dr. Hardy Kay from Nephrology. Dr. Jorge Cruz from GI. HOSPITAL COURSE: This is a patient who was admitted to the hospital for right lower lobe pneumonia, uncontrolled hypertension. Patient was admitted to the hospital. He was started on IV antibiotics. The patient was feeling fine. Her blood pressure medications were adjusted, and the blood pressure was between 130s and 140. She continued to receive dialysis here Tuesday, Tuesday and Tuesday. She was with recurrent nausea and vomiting. We know that this patient has history of gastroparesis. GI was consulted, but finally they decided not to proceed with any endoscopy. She was recommended to continue with oral antifungal medications. The patient is feeling okay. Blood sugars are okay. So patient is going to be discharged in stable condition. DISCHARGE PHYSICAL EXAMINATION: Vital signs: Temperature 98.3 degrees, heart rate 79, respiratory 14, blood pressure 121/72, O2 saturation 97% on room air. General: This is a chronically ill-appearing, 39-year-old female lying in bed, in no acute distress. Cardiovascular: S1, S2 heard. No murmurs, gallops, or rubs. Regular rate and rhythm. Respiratory: Clear bilaterally to auscultation. No work of breathing or using accessory muscles. Abdomen: Soft, nontender to palpation. Bowel sounds present. No organomegaly. Extremities: No clubbing, cyanosis, or edema. Peripheral pulses present in both legs. Neurological: The patient alert and oriented x3. Moves 4 extremities. DISCHARGE DISPOSITION: Home to self-care. FOLLOWUP: Primary care physician in a week. cc: Jose Montero MD
== END 2019-08-09 19:32 | disposition home or self-care (01) | DRG 73 ==
LOC: P.ED 13:11 → SUATTDRO 17:45 → EDIPHOLD 17:45 → 1N 20:07
PROVIDERS: ATTEND Internal Medicine

== ENCOUNTER 2019-08-09 20:20 | Inpatient (IN) ==
[2019-08-09 21:19] LABS: BASO# 0.12 X1000 (0.0-0.2); BASO% 1.6 % (0.0-0.8); EOS# 0.29 X1000 (0.0-0.7); EOS% 3.8 % (0.0-10.0); HEMATOCRIT 38.1 % (37.0-47.0); HEMOGLOBIN 12.2 g/dL (12.0-16.0); IMM GRAN# 0.04 X1000 (0.0-0.04); IMM GRAN% 0.5 % (0.0-0.5); LYMPH# 0.99 X1000 (1.2-3.4); LYMPH% 12.9 % (20.5-51.1); MCH 30.1 PG (27-31); MCV 94.1 FL (81-99); MONO# 0.68 X1000 (0.11-0.59); MONO% 8.9 % (1.7-9.3); MPV 9.7 FL (7.4-10.4); NEUT# 5.54 X1000 (1.4-6.5); NEUT% 72.3 % (42.2-75.2); PLT 329 X1000 (130-400); RBC 4.05 XMIL (4.2-5.4); RDW 18.3 % (11.5-14.5); WBC 7.66 X1000 (4.8-10.8)
[2019-08-09 21:26] LABS: INR 1.23; PROTIME 15.6 Seconds (11.0-16.0)
[2019-08-09 21:27] LABS: PTT 28.7 Seconds (22.3-41.8)
[2019-08-09 21:40] LABS: ALB/GLOB RATIO 1.2; ALBUMIN 3.8 g/dL (3.5-5.0); CALCIUM 8.9 mg/dL (8.8-10.2); CREATININE 4.2 mg/dL (0.5-0.9); POTASSIUM 4.1 mmol/L (3.5-5.1); TOTAL BILIRUBIN 0.47 mg/dL (0.20-1.00)
[2019-08-09 23:37] LABS: URINE SOURCE CATH
[2019-08-09 23:39] LABS: BILIRUBIN URINE SMALL (NEGATIVE); BLOOD URINE SMALL (NEGATIVE); COLOR YELLOW; GLUCOSE URINE 150 mg/dL (NEGATIVE); KETONE URINE 10 mg/dL (NEGATIVE); LEUKOCYTES URINE TRACE (NEGATIVE); NITRITE URINE NEGATIVE (NEGATIVE); PROTEIN URINE 300 mg/dL (NEGATIVE); SP GRAVITY URINE 1.023; TURBIDITY URINE HAZY (CLEAR); UROBILINOGEN URINE NORMAL (NORMAL)
[2019-08-09 23:44] LABS: UR EPITHELIAL CELLS >10 /HPF (<10); URINE BACTERIA NEGATIVE /HPF; URINE RBC <10 /HPF (<10); URINE WBC 20-40 /HPF (<10)
[2019-08-09 23:55] LABS: URINE CASTS NONE SEEN; URINE CRYSTALS NONE SEEN; URINE SMALL ROUND CELLS NONE SEEN; URINE YEAST NONE SEEN
[2019-08-10 07:17] LABS: HEMOGLOBIN A1C 9.8 % (4.8-6.0)
[2019-08-10 20:55] LABS: UR AMPHETAMINES QUAL NONE DETECTED (NONE DETECT); UR BARBITUATES QUAL NONE DETECTED (NONE DETECT); UR BENZODIAZEPIN QUAL NONE DETECTED (NONE DETECT); UR CANNABINOIDS QUAL NONE DETECTED (NONE DETECT); UR COCAINE QUAL NONE DETECTED (NONE DETECT); UR METHADONE QUAL NONE DETECTED (NONE DETECT); UR OPIATES QUAL NONE DETECTED (NONE DETECT); UR OXYCODONE QUAL NONE DETECTED (NONE DETECT); UR PCP QUAL NONE DETECTED (NONE DETECT)
[2019-08-11 06:26] LABS: BASO# 0.05 X1000 (0.0-0.2); BASO% 0.6 % (0.0-0.8); EOS# 0.07 X1000 (0.0-0.7); EOS% 0.8 % (0.0-10.0); HEMATOCRIT 38.3 % (37.0-47.0); HEMOGLOBIN 11.9 g/dL (12.0-16.0); LYMPH% 7.2 % (20.5-51.1); MCH 29.7 PG (27-31); MCHC 31.1 g/dL (33-37); MCV 95.5 FL (81-99); MONO# 0.97 X1000 (0.11-0.59); MONO% 11.7 % (1.7-9.3); MPV 10.3 FL (7.4-10.4); NEUT# 6.59 X1000 (1.4-6.5); NEUT% 79.7 % (42.2-75.2); PLT 250 X1000 (130-400); RBC 4.01 XMIL (4.2-5.4); RDW 18.2 % (11.5-14.5); WBC 8.28 X1000 (4.8-10.8)
[2019-08-11 06:39] LABS: ALBUMIN 3.4 g/dL (3.5-5.0); CALCIUM 8.3 mg/dL (8.8-10.2); CREATININE 3.4 mg/dL (0.5-0.9); DIRECT BILIRUBIN 0.3 mg/dL (0.00-0.20); POTASSIUM 4.1 mmol/L (3.5-5.1); TOTAL BILIRUBIN 0.47 mg/dL (0.20-1.00); TOTAL PROTEIN 6.8 g/dL (6.3-8.3)
[2019-08-12 11:38] LABS: HEPATITIS PROFILE ACUTE SEE COMMENTS
[2019-08-13 18:44] VITALS: BP 143/82
== END 2019-08-13 21:30 | disposition home or self-care (01) | DRG 637 ==
LOC: ED 20:20 → 4N 23:35 → SUATTDRO 23:35 → 1N 08-10 15:29
PROVIDERS: ATTEND Internal Medicine

== ENCOUNTER 2019-08-20 22:54 | Inpatient (IN) ==
[2019-08-20] MEDS ORDERED: GLUCAGON IM ONE (23:09)
[2019-08-20] MEDS ORDERED: COREG PO ONE (23:29)
[2019-08-21] MEDS ORDERED: KEPPRA 1,000 MG in NS 100 ML IV ONE (00:01)
[2019-08-21] MEDS ORDERED: D50W SYRINGE IV ONE (00:01)
[2019-08-21 00:48] LABS: BASO# 0.06 X1000 (0.0-0.2); BASO% 0.7 % (0.0-0.8); EOS# 0.08 X1000 (0.0-0.7); HEMATOCRIT 39.1 % (37.0-47.0); HEMOGLOBIN 12.9 g/dL (12.0-16.0); IMM GRAN# 0.02 X1000 (0.0-0.04); IMM GRAN% 0.2 % (0.0-0.5); LYMPH# 0.77 X1000 (1.2-3.4); LYMPH% 9.4 % (20.5-51.1); MCH 29.7 PG (27-31); MCV 89.9 FL (81-99); MONO% 12.2 % (1.7-9.3); MPV 10.9 FL (7.4-10.4); NEUT# 6.27 X1000 (1.4-6.5); NEUT% 76.5 % (42.2-75.2); PLT 325 X1000 (130-400); RBC 4.35 XMIL (4.2-5.4); RDW 16.3 % (11.5-14.5)
[2019-08-21 01:46] LABS: ALBUMIN 4.1 g/dL (3.5-5.0); CALCIUM 8.6 mg/dL (8.8-10.2); CREATININE 3.5 mg/dL (0.5-0.9); POTASSIUM 5.4 mmol/L (3.5-5.1); TOTAL BILIRUBIN 0.5 mg/dL (0.20-1.00); TOTAL PROTEIN 8.2 g/dL (6.3-8.3)
--- NOTE | 2019-08-21 01:56 | PROVIDER DOCUMENTATION ---
This chart was entered by Kacey Mac Scribe, acting as scribe for Shaquille Heredia MD. 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 ems sts arrived at pt home, fam sts symptoms started 10-15 mins before arrival, given oral glucose enroute. pt has hx of kidney dz (has fistula in place), dm. pt is seen in er freq for hypoglycemia, last visit was 08-09. pt has sores all over appendages. Location of Pain/Injury: reports: none Pain Radiation: reports: no radiation Severity: reports: moderate Onset/Duration: reports: just prior to arrival Timing: reports: still present Context/Activities at Onset: reports: none Modifying Factors: improves with: nothing Associated Symptoms: reports: other (hypoglycemia) Similar Symptoms Previously?: Yes Recently seen or treated by another doctor?: Yes (12 adm in ) - Diabetes Related Context Context: reports: low blood sugar, prior DKA hospitalization <Shaquille Heredia - Last Filed: 08/21/19 02:06> <Juan C Joyce - Last Filed: 08/21/19 02:37> - General Stated Complaint: low blood sugar Time Seen by Provider: 08/20/19 23:08 Allergies/Adverse Reactions: Patient Allergies Allergy/AdvReac Type Severity Reaction Status Date / Time adhesive Allergy RASH Verified 08/20/19 23:20 Home Medications: Home Medication List Medication Instructions Recorded Confirmed Last Taken Type Levetiracetam 1 tab PO BID 08/07/19 08/20/19 Unknown History Amlodipine [Norvasc] 10 mg PO DAILY #60 tab 08/13/19 08/20/19 Unknown Rx Aspirin 81 mg PO DAILY chewtab 08/13/19 08/20/19 Unknown Rx Azithromycin [Zithromax] 250 mg PO DAILY #35 tab 08/13/19 08/20/19 Unknown Rx Cefdinir 300 mg PO DAILY #7 cap 08/13/19 08/20/19 Unknown Rx Fluconazole [Diflucan] 200 mg PO DAILY #8 tab 08/13/19 08/20/19 Unknown Rx Insulin Glargine [Lantus Insulin] 8 unit SUBQ DAILY #0 08/13/19 08/20/19 08/03/19 09:00 Rx Review of Systems - Adult - REVIEW OF SYSTEMS - ADULT ROS:: limited per condition Constitutional: reports: no symptoms reported. denies: fever, fatique, night sweats Eyes: reports: no symptoms reported Ears, Nose, Mouth & Throat: reports: no symptoms reported Cardiovascular: reports: no symptoms reported Respiratory: reports: no symptoms reported Gastrointestinal: reports: no symptoms reported Genitourinary: reports: no symptoms reported Musculoskeletal: reports: no symptoms reported Integumentary: reports: no symptoms reported Neurological: reports: no symptoms reported Psychiatric: reports: no symptoms reported Endocrine: reports: see HPI, other (hypoglycemia). denies: change in skin pigment, excessive sweating, goiter Hematologic/Lymphatic: reports: no symptoms reported Allergic/Immunologic: reports: no symptoms reported All Other Systems: Reviewed and Negative <Shaquille Heredia - Last Filed: 08/21/19 02:06> Past History - Adult - PAST MEDICAL HISTORY-ADULT Review of Records: reports: Nursing Assessment Review, Medications Reviewed, Social history reviewed & non-contributory. Major Childhood Illnesses: reports: denies history Cardiovascular: reports: CHF, HTN, hyperlipidemia, other (cardiomyopathy) Respiratory: reports: denies history Gastrointestinal: reports: GERD, other (gastroparesis, eroding esophagus) Obstetrical/Gynecological: reports: denies history Genitourinary: reports: dialysis (MWF), kidney disease Musculoskeletal: reports: denies history Neurological: reports: CVA, Seizures/Epilepsy Psychiatric: reports: anxiety Endocrine/Immune: reports: anemia, Diabetes Other Conditions: reports: cataract/glaucoma, other (VRE) - PRIOR SURGERIES/PROCEDURES Surgical/Procedure History: reports: colonoscopy, cholecystectomy, indwelling device (dialysis access), other (cataract removal; cornea transplant; lap; feeding tube) - PRIOR HOSPITALIZATIONS Prior Hospitalizations: reports: for other non-related - IMMUNIZATION STATUS Childhood Immunizations: See Nurse Assessment Flu Vaccine: See Nurse Assessment - FAMILY HISTORY Family History: reviewed, not pertinent - SOCIAL HISTORY Smoking: other (former smoker) Substance Use: none/never <Shaquille Heredia - Last Filed: 08/21/19 02:06> Physical Exam-General - PHYSICAL EXAM-ADULT Initial Vital Signs Reviewed: Yes - CONSTITUTIONAL General Appearance: moderate distress, anxious, slow to respond, obtunded, combative. negative: cachetic - EYES Eyes: PERRL/EOMI, pink conjunctivae - HEAD, EARS, NOSE, MOUTH & THROAT HENMT: normocephalic/atraumatic, moist mucous membranes - NECK Neck: non-tender, full range of motion, supple, normal inspection - RESPIRATORY Respiratory: chest non-tender, lungs clear, normal breath sounds - CARDIOVASCULAR Cardiovascular: normal peripheral pulses, regular rate, rhythm - GASTROINTESTINAL (ABDOMEN) Abdominal Exam: normal bowel sounds, non tender, soft - MUSCULOSKELETAL Back Exam: normal inspection Extremity: normal range of motion, non-tender, normal inspection - SKIN Integumentary: normal color, normal turgor, warm/dry, other (pt has leisons on bilat arms and legs). negative: rash, swelling, tenderness - NEUROLOGIC Neurologic: other (unable to test due to pt condition) - PSYCHIATRIC Psych/Mental Status: disoriented x 3, anxious, disheveled. negative: normal mood/affect, normal thought content, normal thought process, oriented x 3 <Shaquille Heredia - Last Filed: 08/21/19 02:06> Progress - PLAN OF CARE/RESULTS Progress/Plan/Lab Results: Spoke to Dr. Youngblood hospitalist about observation admission for insulin dependent diabetes mellitus with hypoglycemia now resolved with absence seizure episode treated with Keppra. CT head pending. Spoke to Dr. Joyce to call Dr. Youngblood for an update but the patient is tentatively admitted as of this time. Shila Chaparro, mother, was updated about her condition. Given glucagon and D50 and keppra load in ED. Seizure episode lasted roughly 20 seconds. Result Diagrams: 08/20/19 23:57 08/20/19 23:57 - REASSESSMENT Reassessment #1 Time Reassessed: 23:24 Status: improving (pt is eating and drinking, acting more oriented.) Reassessment #2 Time Reassessed: 23:55 Status: worsening (pt having absent seizures, become catatonic and rigid at bedside.) - XRAY 1 XRAY Study: Chest Impression: Abnormal (Cardiomegaly. Much improved infiltrate compared to prior study 08/11/2019) Comparison with other Films: changes noted - CT/MRI 1 CT Study: Head Impression: Normal Comparison with other Films: no changes - CONSULTS/PCP/HOSPITALIST Notification #1 *Consult/PCP/Hospitalist*: [place] Time Discussed: 01:35 Reason/Comments: Wants update from Dr. Joyce about CT head result Consult Disposition: Will see in ED - CHANGE OF SHIFT REPORT (ED Provider) 1 Report Given and Care Transferred to:: Dr. Joyce Time of Transfer: 02:00 Items Pending: CT/MRI Results <Shaquille Heredia - Last Filed: 08/21/19 02:06> - PLAN OF CARE/RESULTS Progress/Plan/Lab Results: Vital Signs - 8 hr 08/20/19 23:05 08/20/19 23:06 08/20/19 23:07 Temperature 97.1 F L Pulse Rate 89 Respiratory Rate 16 Blood Pressure 218/128 218/124 O2 Sat by Pulse Oximetry 100 100 93 L 08/20/19 23:09 08/20/19 23:15 08/20/19 23:28 Temperature Pulse Rate Respiratory Rate Blood Pressure 202/120 208/123 O2 Sat by Pulse Oximetry 95 99 100 08/20/19 23:30 08/20/19 23:32 08/20/19 23:45 Temperature Pulse Rate Respiratory Rate Blood Pressure 180/106 O2 Sat by Pulse Oximetry 100 97 95 08/21/19 00:00 08/21/19 00:02 08/21/19 00:03 Temperature Pulse Rate Respiratory Rate Blood Pressure 202/133 O2 Sat by Pulse Oximetry 100 100 95 08/21/19 00:15 08/21/19 00:30 08/21/19 00:32 Temperature Pulse Rate Respiratory Rate Blood Pressure 186/106 O2 Sat by Pulse Oximetry 100 100 100 08/21/19 00:45 08/21/19 01:00 08/21/19 01:15 Temperature Pulse Rate Respiratory Rate Blood Pressure O2 Sat by Pulse Oximetry 100 99 99 08/21/19 01:30 08/21/19 01:45 Temperature Pulse Rate Respiratory Rate Blood Pressure O2 Sat by Pulse Oximetry 99 98 Laboratory Results - last 24 hr 08/20/19 08/20/19 08/20/19 23:44 23:57 23:57 WBC 8.20 RBC 4.35 Hgb 12.9 Hct 39.1 MCV 89.9 MCH 29.7 MCHC 33.0 RDW Std Deviation 16.3 H Plt Count 325 MPV 10.9 H Immature Gran % (Auto) 0.2 Neut % (Auto) 76.5 H Lymph % (Auto) 9.4 L [place] % (Auto) 12.2 H Eos % (Auto) 1.0 Baso % (Auto) 0.7 Immature Gran # (Auto) 0.02 Neut # (Auto) 6.27 Lymph # (Auto) 0.77 L [place] # (Auto) 1.00 H Eos # (Auto) 0.08 Baso # (Auto) 0.06 Sodium 131 L Potassium 5.4 H Chloride 88 L Carbon Dioxide 29 Anion Gap 14 BUN 19 Creatinine 3.5 H Estimated GFR/1.73 m2 18 BUN/Creatinine Ratio 5 Glucose 142 H POC Glucose 47 L D Calculated Osmolality 267 Calcium 8.6 L Total Bilirubin 0.50 AST 242 H ALT 139 H Alkaline Phosphatase 402 H Total Protein 8.2 Albumin 4.1 Globulin 4.1 Albumin/Globulin Ratio 1.0 Lipase 9 L Serum , Qual Salicylates Acetaminophen 08/20/19 08/20/19 08/21/19 23:57 23:57 01:30 WBC RBC Hgb Hct MCV MCH MCHC RDW Std Deviation Plt Count MPV Immature Gran % (Auto) Neut % (Auto) Lymph % (Auto) [place] % (Auto) Eos % (Auto) Baso % (Auto) Immature Gran # (Auto) Neut # (Auto) Lymph # (Auto) [place] # (Auto) Eos # (Auto) Baso # (Auto) Sodium Potassium Chloride Carbon Dioxide Anion Gap BUN Creatinine Estimated GFR/1.73 m2 BUN/Creatinine Ratio Glucose POC Glucose 319 H D Calculated Osmolality Calcium Total Bilirubin AST ALT Alkaline Phosphatase Total Protein Albumin Globulin Albumin/Globulin Ratio Lipase Serum , Qual NEGATIVE Salicylates < 3.00 L Acetaminophen 1.5 L Orders Category Date Time Status FSBS [Finger Stick Blood Sugar (ED)] DIRECTED Care 08/21/19 00:04 Active CHEST-PORTABLE [RAD] Stat Exams 08/21/19 00:[address] HEAD W/O CONTRAST [CT] Stat Exams 08/21/19 00:07 Taken ABG [RESP] Routine Lab 08/21/19 01:52 Ordered ACETAMINOPHEN [TDM] Stat Lab 08/21/19 01:55 Completed CBC WITH DIFF [HEME] Stat Lab 08/21/19 00:05 Completed COMPREHENSIVE METABOLIC PANEL [CHEM] Stat Lab 08/21/19 00:05 Completed KEPPRA [CASAS] Stat Lab 08/21/19 00:05 Received LIPASE [CHEM] Stat Lab 08/21/19 00:05 Completed TEST-SERUM [PREG] Stat Lab 08/21/19 00:42 Completed SALICYLATES [TDM] Stat Lab 08/21/19 01:55 Completed Carvedilol [Coreg] Med 08/20/19 23:29 Discontinued 12.5 mg PO NOW ONE Dextrose 50% Syringe [D50w Syringe] Med 08/21/19 00:01 Discontinued 50 ml IV NOW ONE Glucagon Med 08/20/19 23:09 Discontinued 2 mg IM NOW ONE Levetiracetam [Keppra] 1,000 mg Med 08/21/19 00:01 Discontinued 0.9% Sodium Chloride Inj [Ns] 100 ml IV NOW Result Diagrams: 08/20/19 23:57 08/20/19 23:57 - CONSULTS/PCP/HOSPITALIST Notification #2 Consult: [place] Time Discussed: 02:35 Reason/Comments: head CT report given Consult Disposition: Admit <Juan C Joyce - Last Filed: 08/21/19 02:37> Departure - Departure Date of Disposition Decision: 08/21/19 Time of Disposition Decision: 01:58 Certified Medical Emergency: Emergent - Critical Care Note This patient required my direct & personal management of CC.: No <Shaquille Heredia - Last Filed: 08/21/19 02:06> <Juan C Joyce - Last Filed: 08/21/19 02:37> - Departure DIAGNOSIS: End-stage renal disease on hemodialysis, Diabetes mellitus with hypoglycemia, with long-term current use of insulin, Elevated liver enzymes, Seizure, Chronic renal disease Disposition: ADMITTED INPATIENT 09 Condition: Fair Referrals and Follow-Ups: None,PCP [Primary Care Provider] - Attestation - Physician/ SARAI Attestation Patient care was provided by Advanced Practice Provider:: No The physician spent face to face time with patient:: Yes Advanced Practice Provider documentation review:: Supervising physician onsite and consulted in the evaluation and care of this patient. The physician did have a face to face encounter with the patient. <Shaquille Heredia - Last Filed: 08/21/19 02:06> This chart was documented by the indicated scribe, (Kacey Mac Scribe) and accurately reflects the services I performed and decisions made by me, Shaquille Heredia MD, as attested by the provider's signature.
[2019-08-21 02:29] LABS: ACETAMINOPHEN 1.5 ug/mL (10-30); SALICYLATES < 3.00 mg/dL (3-10)
[2019-08-21] MEDS ORDERED: ZOFRAN IV PRN (03:32)
[2019-08-21] MEDS: NORCO-7.5 PO PRN ×3 (03:37→20:21)
[2019-08-21] MEDS: HEPARIN SUBQ SCH ×2 (04:05→16:58)
[2019-08-21] MEDS: ZOFRAN IV PRN ×2 (04:05→22:27)
[2019-08-21] MEDS: HUMALOG SUBQ SCH ×5 (04:56→18:57)
--- NOTE | 2019-08-21 06:34 | Diag Imaging Result Doc PS360 ---
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 Stable moderately advanced periventricular white matter hypodensities. No intracranial mass or hemorrhage. The skull is intact. There is some moderate mucous in the right sphenoid sinus. Other sinuses are clear. IMPRESSION: No acute disease or change from prior. This exam was performed using automated exposure control, adjustment of mA or kV according to patient size, and/or use of iterative reconstruction technique Electronically signed by Rito Gatica 08/21/2019 6:32 AM
--- NOTE | 2019-08-21 07:03 | Diag Imaging Result Doc PS360 ---
CT THORAX/ABD/PELVIS W/O CON - 08/21/2019 INDICATION: left rib and abd pain COMPARISON: 08/11/2019, 03/10/2019 FINDINGS: CHEST: Stable diffuse body wall edema. Stable significant cardiomegaly. There are some mild interstitial pulmonary edema improved from prior. There is also some nonspecific linear atelectasis or infiltrate in the lung bases significantly improved from prior. No pneumothorax or pleural effusion. There are some rib fractures that are now slightly displaced but were probably present previously. Previously these were completely nondisplaced. These are on the left side. These involve the left-sided ribs #5, seven, eight, and nine Abdomen pelvis: There is significant body wall edema. The kidneys are extremely atrophic. There is severe calcified vascular disease of the small arteries of the abdomen, pelvis, and thighs. There are cholecystectomy clips. No bowel obstruction or inflammation. No free air or free fluid. Bones are intact.. IMPRESSION: 1. Several recent left-sided rib fractures. A few of them are now slightly displaced. 2. Cardiomegaly and pulmonary edema. Improving bibasilar infiltrates/atelectasis. 3. Severe body wall edema. 4. This report was discussed with RT Rachel on 08/21/2019 at 7:00 AM and was readback. This exam was performed using automated exposure control, adjustment of mA or kV according to patient size, and/or use of iterative reconstruction technique Electronically signed by Rito Gatica 08/21/2019 7:01 AM
[2019-08-21] MEDS ORDERED: TYLENOL PO PRN (07:56)
[2019-08-21] MEDS: NORVASC PO SCH (08:17)
[2019-08-21] MEDS: ASPIRIN PO SCH (08:18)
[2019-08-21] MEDS: DILANTIN PO SCH ×3 (08:24→16:58)
--- NOTE | 2019-08-21 08:52 | Diag Imaging Result Doc PS360 ---
CHEST-PORTABLE - 08/21/2019 INDICATION: chest pain COMPARISON: 08/11/2019 FINDINGS: There has been significant improvement in the irregular linear infiltrates in the lung bases. There is still some residual infiltrate in the left lung base. Stable significant cardiomegaly. IMPRESSION: Significant improvement in the bibasilar infiltrates. Electronically signed by Rito Gatica 08/21/2019 8:49 AM
[2019-08-21] MEDS ORDERED: KEPPRA PO SCH (09:00)
[2019-08-21] MEDS ORDERED: G.I. COCKTAIL PO ONE (11:49)
[2019-08-21 14:37] LABS: CALCIUM 7.7 mg/dL (8.8-10.2); CREATININE 3.7 mg/dL (0.5-0.9); POTASSIUM 3.9 mmol/L (3.5-5.1); TOTAL BILIRUBIN 0.4 mg/dL (0.20-1.00); TOTAL PROTEIN 6.1 g/dL (6.3-8.3)
--- NOTE | 2019-08-21 14:54 | PROGRESS NOTE ---
DATE: 08/21/2019 SUBJECTIVE: Patient with no further seizures. Discussed patient briefly what happened. It appears that the patient was continuing to take her Lantus at 16 units a day instead of the 8 that she was reduced to on her last admission. Likely result of her hypoglycemia. The patient reports that she has been taking phenytoin and Keppra both for her seizures, although she says some times throws up and is unsure if she throws them up. Phenytoin level was low on admission. She reports some left-sided pain which is consistent with her rib fractures. The rib fractures are old but appear to have been slightly displaced when she fell this time. The patient denies any altercation, assault or abuse. Reports feeling safe at home. Presumably, she hurt her ribs during the fall when she had her seizure. We will treat symptomatically. Watch her blood sugars, restart the dose that she was adjusted to previously and monitor.
[2019-08-21] MEDS: PERCOCET-5 PO PRN (16:57)
[2019-08-21] MEDS: KEPPRA PO SCH (20:18)
[2019-08-22] MEDS: PERCOCET-5 PO PRN (00:16)
[2019-08-22] MEDS: HUMALOG SUBQ SCH ×6 (00:22→21:15)
[2019-08-22] MEDS: HEPARIN SUBQ SCH ×2 (03:37→15:46)
[2019-08-22 06:01] LABS: BASO# 0.07 X1000 (0.0-0.2); BASO% 1.1 % (0.0-0.8); EOS# 0.14 X1000 (0.0-0.7); EOS% 2.2 % (0.0-10.0); HEMATOCRIT 35.5 % (37.0-47.0); HEMOGLOBIN 11.4 g/dL (12.0-16.0); LYMPH# 1.53 X1000 (1.2-3.4); MCH 29.5 PG (27-31); MCHC 32.1 g/dL (33-37); MCV 91.7 FL (81-99); MONO# 0.67 X1000 (0.11-0.59); MONO% 10.5 % (1.7-9.3); MPV 10.2 FL (7.4-10.4); NEUT# 3.97 X1000 (1.4-6.5); NEUT% 62.2 % (42.2-75.2); PLT 247 X1000 (130-400); RBC 3.87 XMIL (4.2-5.4); RDW 16.8 % (11.5-14.5); WBC 6.38 X1000 (4.8-10.8)
[2019-08-22 06:59] LABS: CALCIUM 7.7 mg/dL (8.8-10.2); CREATININE 4.5 mg/dL (0.5-0.9); POTASSIUM 3.4 mmol/L (3.5-5.1)
[2019-08-22] MEDS: KEPPRA PO SCH ×2 (08:40→21:12)
[2019-08-22] MEDS: NORVASC PO SCH (08:40)
[2019-08-22] MEDS: NORCO-7.5 PO PRN (08:41)
[2019-08-22] MEDS: DILANTIN PO SCH ×3 (08:41→17:24)
[2019-08-22] MEDS: ASPIRIN PO SCH (08:41)
[2019-08-22] MEDS: LANTUS INSULIN SUBQ SCH (10:25)
[2019-08-22] MEDS: G.I. COCKTAIL PO PRN (11:50)
[2019-08-22] MEDS: PERCOCET-10 PO PRN ×3 (12:17→21:14)
--- NOTE | 2019-08-22 15:48 | PROGRESS NOTE ---
DATE: 08/22/2019 INTERVAL HISTORY: Patient with some mild hypoglycemia this morning, but much improved from previous, 78 is as low as she has gotten thus far. Still complaining of some left-sided rib pain only partially relieved by current [place] dose. No other new complaints. No acute events. No further seizure activity. REVIEW OF SYSTEMS: Twelve-point review of systems negative except as per interval history. LABS: WBC 6.3, hemoglobin 11.4, hematocrit 35.5, platelets 247,000. Sodium 135, potassium 3.4, BUN 30, creatinine 4.5, glucose 78 to 202. TSH 0.87. test negative. VITALS: Temperature-max 98.6 degrees, pulse 87, respirations 12, blood pressure 149/83, O2 saturation 99% on room air. PHYSICAL EXAMINATION: General: In no acute distress. Vitals: As above. HEENT: Well healed scars, stable. Moist mucous membranes. Cardiovascular: Regular rate and rhythm. No murmurs noted. Pulmonary: Clear to auscultation bilaterally. No wheezing, rales, or rhonchi. Left chest wall tenderness noted and stable. Abdomen: Soft, nontender, nondistended. Bowel sounds positive. Extremities: Peripheral pulses decreased but present. Right upper extremity fistula with good thrill. No clubbing, cyanosis. Neurologic: Cranial nerves grossly intact. No focal deficits. Psychiatric: Essentially normal mood and affect. Awake, alert and oriented x3. ASSESSMENT AND PLAN: 1. Seizure. Patient with known seizure disorder. Reports taking her medications at home but says she may occasionally throw them up. Levels were low on admission. No further seizures since hypoglycemia was addressed and she was restarted on her home antiseizure medications. She states she is supposed to be taking Keppra and Dilantin. 2. Diabetes with hypoglycemia. Patient with a long history of brittle diabetes. After last admission, she was supposed to have decreased her Lantus to 8 units daily. She states that she did not realize this and continued to take 16 units of Lantus daily along with her short- acting insulin. She had severe hypoglycemia and seizure. Insulin has been adjusted and she had a mild low this morning at 78, but has been largely acceptable so far this morning. Today is the first day she will get what she is supposed to be taking. If she does well with that, then can likely be discharged home tomorrow. 3. Chronic diastolic congestive heart failure, stable. 4. End-stage renal disease. Nephrology on board and arranging dialysis. 5. Left-sided rib fractures. They have been present previously but appeared to have been slightly displaced when patient had her seizure and fell just prior to this admission. Improvement in pain, but still complaining of less than ideal control on current [place]. We will change to Percocet and increase the dose a little and see if that controls her pain better. 6. Gastroesophageal reflux disease. Continue PPI. 7. Hypertension. Continue home Norvasc. 8. History of cerebrovascular accident. Continue aspirin.
[2019-08-23] MEDS: HUMALOG SUBQ SCH ×4 (06:20→22:40)
[2019-08-23] MEDS: PROTONIX PO SCH (06:20)
[2019-08-23] MEDS: HEPARIN SUBQ SCH ×2 (06:21→17:58)
[2019-08-23] MEDS ORDERED: NS 2,000 ML MISC PRN (06:47)
[2019-08-23] MEDS ORDERED: TIGHT: 0.2 ML/HR FOR DIALYSIS MISC PRN (06:47)
[2019-08-23] MEDS ORDERED: HEPARIN IV PRN (06:47)
--- NOTE | 2019-08-23 06:54 | HISTORY AND PHYSICAL ---
CHIEF COMPLAINT: Low blood sugar. HISTORY OF PRESENT ILLNESS: Ms. Chaparro is a 39-year-old -Swiss female who looks much older than her stated age. She is well known to our service. She comes into the emergency room with complaint of low blood sugar. Apparently she had a blood sugar around 25 at home. She was given oral glucose en route by EMS. On arrival, she had a witnessed seizure. She does have a history of epilepsy. She has other past medical history that includes end-stage renal disease with hemodialysis Tuesday, Tuesday, Tuesday, diabetes mellitus type 1, hypertension, seizure disorder, systolic heart failure, chronic constipation, esophagitis, gastritis, gastroparesis and CVA. She will be admitted for further evaluation and treatment. PAST MEDICAL HISTORY: See HPI. PREVIOUS SURGICAL HISTORY: 1. Corneal implants. 2. AV graft to the right arm. 3. Cholecystectomy. 4. History of PEG tube placement. SOCIAL HISTORY: No alcohol, tobacco or illicit drugs. FAMILY HISTORY: Mother has hypertension, diabetes mellitus. She does not know her father's history. ALLERGIES: Adhesive tape. HOME MEDICATIONS: A list of home medications has not been reconciled. An order was placed for nursing to reconcile home medications. These will be restarted when appropriate. PHYSICAL EXAMINATION: VITAL SIGNS: Temperature 98.1 degrees, pulse 82, respirations 15, blood pressure 178/76, oxygen saturation 100% on room air. GENERAL: 39-year-old -[place]iss female lying in the ER stretcher. She is alert and oriented x3, in no acute distress. HEENT: Head is atraumatic, normocephalic. Pupils equal, round and reactive to light. Extraocular eye movements intact. Sclerae anicteric. Conjunctivae pink. Oral mucosa is moist. NECK: Supple. No JVD. No thyromegaly. Trachea is midline. No cervical lymphadenopathy. CARDIAC: S1, S2 appreciated. No murmurs, gallops, rubs. LUNGS: Clear to auscultation bilaterally. No rhonchi, wheezes, rales. Right sided chest wall very tender to palpation. Patient cried out during examination. ABDOMEN: Soft, nondistended, nontender. Bowel sounds present all 4 quadrants. Normoactive. No pulsatile masses. No organomegaly. EXTREMITIES: No cyanosis, clubbing or edema. NEUROLOGICAL: Alert and oriented x3. Cranial nerves 2-12 appear to be grossly intact. LABORATORY DATA: WBC 8.20, hemoglobin 12.9, hematocrit 39.1, platelet count 325,000. Sodium 131, potassium 5.4, chloride 88, carbon dioxide 29, BUN 19, creatinine 3.5, glucose 142. It was 47, I believe on arrival. CT of her head: No acute disease. No change from prior CT's. Chest x-ray: Stable cardiomegaly. CT of her chest and abdomen is pending. ASSESSMENT AND PLAN: 1. Hypotension. 2. Brittle diabetes mellitus, insulin-dependent. 3. Seizure with a history of epilepsy. 4. Diabetic gastroparesis. 5. Chronic systolic heart failure. 6. End-stage renal disease with hemodialysis Tuesday, Tuesday, Tuesday. PLAN: Admit patient to the medical floor. Patient was loaded with Keppra. We will continue home Keppra. Sliding scale insulin with fingerstick blood sugars. We will hold her long-acting insulin now at this time. Consult Dr. Kay related to hemodialysis. Place on diabetic diet. Continue to monitor for seizure activity. We will evaluate CT scan for cause of palpation of left rib cage. We will give patient [place] p.r.n. as needed for pain. Further recommendations per patient's clinical course. Dictated by MANNY Cain for Bethany Youngblood MD cc: MANNY Cain MD
[2019-08-23] MEDS: LANTUS INSULIN SUBQ SCH (08:32)
[2019-08-23] MEDS: KEPPRA PO SCH ×2 (08:32→22:40)
[2019-08-23] MEDS: ASPIRIN PO SCH (08:32)
[2019-08-23] MEDS: NORVASC PO SCH (08:32)
[2019-08-23] MEDS: DILANTIN PO SCH ×3 (08:32→22:40)
[2019-08-23] MEDS: G.I. COCKTAIL PO PRN (08:36)
--- NOTE | 2019-08-23 11:21 | NEPHROLOGY PROGRESS NOTE ---
DATE: 08/23/2019 SUBJECTIVE: She states she is well, except for her ongoing left chest pain. She has been able to eat with no vomiting. She states she has been out of bed. OBJECTIVE: Vital Signs: Blood pressure 140/87, heart rate 83, respirations 12, afebrile. General: No acute distress. Skin: Warm and dry. Eyes: Conjunctivae are pink. Neck: Neck veins are not distended. HEART: Regular with systolic murmur. PMI is displaced.Lungs: Have equal breath sounds. No crackles or wheezes. Abdomen: Soft, nontender. Bowel sounds present. Extremities: No edema, clubbing or cyanosis. IMPRESSION: 1. Chronic kidney disease 5 D. She will have her routine hemodialysis treatment today. We will use her last post dialysis weight as our target. A 3 potassium bath as appropriate. Discharge thereafter from my perspective. 2. Electrolytes/acid base/anemia/blood pressure all in target. cc: Hardy Kay MD
--- NOTE | 2019-08-23 16:41 | PROGRESS NOTE ---
DATE: 08/23/2019 INTERVAL HISTORY: No acute events overnight. Since morning she has not had any hypoglycemic episodes. I am seeing her in dialysis unit. Ms. Becky Chaparro denies any chest pain, shortness of breath, nausea, vomiting, abdominal pain. She has not had any fever episode. She states at home she is supposed to be taking phenytoin and levetiracetam for seizures. She is not able to answer questions regarding compliance appropriately.Vital Signs: Temperature of 98.2 degrees, pulse 84, respiration 14, blood pressure 140/80, saturating 97% room air. General: On physical examination, not in acute distress. HEENT: Oral cavity is moist. Respiratory: Air entry bilaterally equal. No wheeze, rhonchi or crackles. Cardiovascular: S1, S2 normal. No murmur or gallop. Abdomen: Soft, nontender. No lower extremity edema. Extremities: She has a right- sided arm AV fistula through which she is getting dialysis. Neurologic: She is alert, and she is oriented. She is answering questions appropriately. LABS: Suggestive of blood glucose of 225. ASSESSMENT: 1. 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 2. Brittle diabetes mellitus with frequent hypoglycemia. 3. Chronic diastolic congestive heart failure. 4. End-stage renal disease on Tuesday, Tuesday, Tuesday hemodialysis. 5. Left-sided rib cage fractures. The patient denies any abuse. 6. Chronic gastroesophageal reflux disease. 7. Essential hypertension. 8. History of cerebrovascular accident. PLAN: My initial plan was to discharge the patient home. However, R had evaluated the patient and had suggested to me that the patient did not have a safe home environment, and the patient has told them that she was not in fact getting food when she needed it when she used to live with her family, so currently I stopped the discharge order. I will continue her on phenytoin and levetiracetam for seizures, current dose of insulin glargine and sliding scale insulin, and place consult for social work assistant to find a [facility] facility. Apparently, the patient was supposed to be taking 8 units of subcutaneous glargine as per the previous discharge summary; however, at home she was taking 16 which may have caused her hypoglycemia triggering seizure episode. The patient was educated about this. Remarkably, her phenytoin and levetiracetam levels were also undetectable on presentation. cc: Tony Gandhi MD
[2019-08-23] MEDS: PERCOCET-10 PO PRN ×2 (17:17→22:39)
--- NOTE | 2019-08-23 20:30 | DISCHARGE SUMMARY ---
ADMISSION DATE: 08/21/2019 DISCHARGE DATE: Pending DISCHARGE DISPOSITION: Pending DISCHARGE CONDITION: Hemodynamically stable. She has not had a hypoglycemia episode in almost 24 hours. She is currently getting her dialysis. I discussed with her about taking regular small frequent meals. I also discussed with her about taking her lower dose of insulin. I answered all of her questions. She states she takes Keppra and phenytoin at home. DISCHARGE DIAGNOSES: 1. Seizure due to hypoglycemia. 2. Brittle diabetes mellitus, insulin dependent with frequent hypoglycemia. 3. Left-sided rib cage pain due to old fractures. OTHER DIAGNOSES: 1. History of multiple hospital admissions due to seizures and hypoglycemia. 2. Chronic diastolic congestive heart failure. 3. End-stage renal disease on Tuesday, Tuesday, Tuesday dialysis. 4. Chronic GERD. 5. Essential hypertension. 6. History of CVA. DISCHARGE MEDICATIONS: 1. Lidocaine patch 5% apply 1 patch over left-sided rib cage pain as needed. 2. Keppra 250 mg b.i.d. 3. Aspirin 81 mg daily. 4. Phenytoin 100 mg t.i.d. 5. Insulin glargine 8 units subcutaneously daily. 6. Amlodipine 10 mg daily. VITALS: At the time of discharge temperature 98.2 degrees, pulse 84, respiratory 14, blood pressure 140/80, saturating 97% room air. PHYSICAL EXAMINATION: Not in acute distress. Oral cavity is moist. Air entry bilaterally equal. No wheeze. Central trachea. Cardiovascular: S1, S2 normal. No murmur or gallop. Abdomen: Soft, nontender. Extremity: No lower extremity edema. She has a right arm AV fistula. She has multiple pustular lesions affecting entire body. LABORATORY DATA: At the time of discharge, her blood glucose is 225. Microbiology during hospital admission, none. IMAGING: During hospital admission, chest x-ray on presentation had improved bibasilar atelectasis. Head CT on presentation did not have any acute disease or change from the prior head CT. Chest, abdomen, and pelvis CT performed for left rib and abdominal pain had several recent left-sided rib fractures, some of them were slightly displaced, cardiomegaly and pulmonary edema, improving bibasilar atelectasis, severe body wall edema next. HOSPITAL COURSE SUMMARY: 1. Ms. Becky Chaparro is a 39-year-old lady who presented on 08/20/2019 with chief complaints of low blood sugar. Apparently, she had a blood glucose of 25, so the EMS had given her oral glucose. On arrival, she had a witnessed seizure, so she was admitted for further management. She apparently was taking 16 units of insulin glargine instead of 8 units, which she was discharged on because she could not understand discharge instructions well at the time of previous discharge. 2. In any case she was started on her home insulin regimen on presentation. She also had a Keppra level which was undetectable as well as total phenytoin level, which were undetectable. Her compliance with antiseizure medications was questionable. After starting her back on her antiseizure medication, she did not have any more seizure activity. She was deemed appropriate for discharge. TIME SPENT: Less than 30 minutes of time was spent in discharging this patient. Plan of care was discussed with her. She was counseled about taking small frequent meals and insulin regularly and having follow up with outpatient provider within 7 to 10 days. She understood it. All of her questions have been answered. cc: Tony Gandhi MD MTDD
[2019-08-24] MEDS: PERCOCET-10 PO PRN ×3 (05:46→23:37)
[2019-08-24] MEDS: HEPARIN SUBQ SCH ×2 (05:48→17:34)
[2019-08-24] MEDS: HUMALOG SUBQ SCH ×4 (06:11→23:39)
[2019-08-24] MEDS: PROTONIX PO SCH (06:11)
[2019-08-24] MEDS: ASPIRIN PO SCH (09:34)
[2019-08-24] MEDS: LANTUS INSULIN SUBQ SCH (09:34)
[2019-08-24] MEDS: DILANTIN PO SCH ×3 (09:34→17:34)
[2019-08-24] MEDS: KEPPRA PO SCH ×2 (09:34→20:38)
[2019-08-24] MEDS: NORVASC PO SCH (09:34)
--- NOTE | 2019-08-24 14:00 | NEPHROLOGY PROGRESS NOTE ---
DATE: 08/24/2019 SUBJECTIVE: She still has some rib pain on the left. No cough, shortness of breath, nausea or vomiting. OBJECTIVE: Vital Signs: Blood pressure 161/87, heart rate 81, respirations 16, afebrile. General: No acute distress. Skin: Warm and dry. HEENT: Conjunctivae are pink. Heart: Regular. Systolic murmur. PMI enlarged and displaced. Lungs: Equal breath sounds. No crackles. Abdomen: Soft, nontender. Bowel sounds present. Extremities: 1+ edema. No clubbing or cyanosis. IMPRESSION: 1. Chronic kidney disease 5D. She will have her next routine hemodialysis treatment tomorrow. 2. Electrolytes/acid base/volume status. Mild volume expansion that we will address tomorrow. Anemia is in target. Blood pressure is above target today, in target in the last 24 hours. Observe. cc: Hardy Kay MD
--- NOTE | 2019-08-24 18:18 | PROGRESS NOTE ---
DATE: 08/24/2019 SUBJECTIVE: The patient reports feeling fine. Denies any fever or chills. She continues to complain of some left ribcage pain. No other issues noted. OBJECTIVE: Vital signs: Temperature 97.9 degrees, heart rate 83, respiratory rate 18, blood pressure 160/92, O2 saturation 98% on room air. On general examination, this is a chronically ill- appearing 39-year-old female, lying in bed in no acute distress.Cardiovascular: S1, S2 heard. No murmurs, gallops or rubs. Regular rate and rhythm. Respiratory: Clear bilaterally to auscultation. No work of breathing or use of accessory muscles. Abdomen soft, nontender to palpation. Bowel sounds present. No organomegaly. Extremities: The patient has a right-sided arm AV fistula. Peripheral pulses present in both legs. On neurologic exam the patient is alert oriented x3. Moves all 4 extremities. ASSESSMENT: 1. Seizures due to hypoglycemia, with prior history of seizure disorder. 2. Uncontrolled diabetes mellitus, with frequent hypoglycemic episodes. 3. Chronic diastolic congestive heart failure. 4. Endstage renal disease, on Tuesday, Tuesday and Tuesday hemodialysis. 5. Left-sided ribcage fracture. 6. Gastroesophageal reflux disease. 7. Hypertension. 8. History of cerebrovascular accident. PLAN: At this point the patient is medically stable. Apparently [facility] has been involved. The patient reports staying at home with her parents but she cannot stay there anymore, and she is looking for a permanent half-way. As mentioned before, social services technician and [facility] have been involved in her care. At this point, we will continue with current medications. The patient has been warned that if she does not take her medications for seizures then she will continue to come to the hospital for that condition. The patient reports being compliant with that medication. Both levels of Phenytoin and Keppra has been very low, so I do not think this patient is really being compliant with meds. She said that sometimes she feels nauseated and she is not able to keep those medications down. In any case, we will continue to monitor this patient closely. cc: Jose Montero MD [facility]ENTERHunter
[2019-08-25] MEDS: HEPARIN SUBQ SCH ×2 (05:59→17:38)
[2019-08-25] MEDS: PROTONIX PO SCH (05:59)
[2019-08-25] MEDS: HUMALOG SUBQ SCH ×4 (06:01→21:24)
[2019-08-25] MEDS ORDERED: NS 2,000 ML MISC PRN (08:18)
[2019-08-25] MEDS ORDERED: TIGHT: 0.2 ML/HR FOR DIALYSIS MISC PRN (08:18)
[2019-08-25] MEDS ORDERED: HEPARIN IV PRN (08:18)
--- NOTE | 2019-08-25 12:51 | NEPHROLOGY PROGRESS NOTE ---
DATE: 08/24/2019 SUBJECTIVE: She complains of anxiety. She has not complained particularly of her pain today. Currently on dialysis. OBJECTIVE: Vital Signs: Blood pressure 164/95, heart rate 84, respirations 16, afebrile. General: No acute distress. Skin: Warm and dry. Neck: Neck veins are not distended. Heart: Regular with systolic murmur. Lungs: Equal. No crackles. Abdomen: Soft, nontender. Bowel sounds present. Extremities: No edema, clubbing or cyanosis. IMPRESSION: Chronic kidney disease 5D. Continue her routine hemodialysis. Three potassium bath. 2 L ultrafiltration. No other changes. cc: Hardy Kay MD
[2019-08-25] MEDS: KEPPRA PO SCH ×2 (13:47→21:24)
[2019-08-25] MEDS: PERCOCET-10 PO PRN ×2 (13:47→21:31)
[2019-08-25] MEDS: NORVASC PO SCH (13:47)
[2019-08-25] MEDS: ASPIRIN PO SCH (13:47)
[2019-08-25] MEDS: DILANTIN PO SCH ×3 (13:48→16:21)
[2019-08-25] MEDS: LANTUS INSULIN SUBQ SCH (13:48)
--- NOTE | 2019-08-25 14:11 | PROGRESS NOTE ---
DATE: 08/25/2019 SUBJECTIVE: The patient reports feeling fine, reports sometimes feeling anxious but no other complaints noted. OBJECTIVE: Vital Signs: Temperature 98.0 degrees, heart rate 84, respiratory rate 18, blood pressure 163/92, O2 saturation 96% on room air. General Examination: This is a chronically ill- appearing, 39-year-old female lying in bed, in no acute distress. Cardiovascular: S1, S2 heard. No murmurs, gallops, or rubs. Regular rate and rhythm. Respiratory: Clear bilaterally to auscultation. No work of breathing or using accessory muscles. Abdomen: Soft, nontender to palpation. Bowel sounds present. No organomegaly. Extremities: No clubbing, cyanosis, or edema. Peripheral pulses present in both legs. Neurological: Patient is alert and oriented x3. Moves 4 extremities. LABORATORY DATA: Reviewed. ASSESSMENT: 1. Seizures due to hypoglycemia with prior history of seizure disorder. 2. 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 3. Chronic diastolic congestive heart failure. 4. End-stage renal disease, on Tuesday, Tuesday, and Tuesday hemodialysis. 5. Left-sided ribcage fracture. 6. Gastroesophageal reflux disease. 7. Hypertension. 8. History of CVA. PLAN: At this point, patient is medically stable. Continue with current management. Patient receiving dialysis routinely. [facility] has been involved in her case. We will see what they have to say on Tuesday. The patient has been advised about the importance of being compliant with medication because almost every time she comes here, she has had a seizure. We found out that her levels of phenytoin and Keppra are low. We will continue to monitor this patient closely. cc: Jose Montero MD
[2019-08-26] MEDS: PERCOCET-10 PO PRN ×3 (04:09→21:17)
[2019-08-26] MEDS: HEPARIN SUBQ SCH ×2 (05:56→17:03)
[2019-08-26] MEDS: PROTONIX PO SCH (06:00)
[2019-08-26] MEDS: HUMALOG SUBQ SCH ×4 (06:00→21:05)
[2019-08-26] MEDS: NORVASC PO SCH (09:02)
[2019-08-26] MEDS: DILANTIN PO SCH ×3 (09:03→17:03)
[2019-08-26] MEDS: LANTUS INSULIN SUBQ SCH (09:03)
[2019-08-26] MEDS: ASPIRIN PO SCH (09:03)
[2019-08-26] MEDS: KEPPRA PO SCH ×2 (09:03→21:13)
--- NOTE | 2019-08-26 10:37 | PROGRESS NOTE ---
DATE: 08/26/2019 SUBJECTIVE: The patient reports feeling fine. No complaints at this time. OBJECTIVE: Vital Signs: Temperature 97.7 degrees, heart rate 96, respiratory rate 18, blood pressure 187/105, O2 saturation 94% on room air. General: This is a chronically ill-appearing, 39-year-old, female, lying in bed in no acute distress. Cardiovascular: S1, S2 heard. No murmurs, gallops, or rubs. Regular rate and rhythm. Respiratory: Clear bilaterally to auscultation. No work of breathing or using accessory muscles. Abdomen: Soft, a little bit distended, but nontender to palpation. Bowel sounds present. No organomegaly. Extremities: No clubbing, cyanosis, or edema. Peripheral pulses present in both legs. Neurological: The patient is alert and oriented x3. Moves all 4 extremities. LABORATORY DATA: Reviewed. ASSESSMENT AND PLAN: 1. Seizures due to hypoglycemia with prior history of seizure disorder. 2. 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 3. Chronic diastolic congestive heart failure. 4. End-stage renal disease, on dialysis Tuesday, Tuesday, and Tuesday. 5. Left-sided ribcage fracture. 6. Gastroesophageal reflux disease. 7. Hypertension. 8. History of cerebrovascular accident. At this point, the patient is medically stable. Will continue home medication. Will continue with current dialysis regimen, and we are awaiting recommendations from [facility] regarding the disposition for this patient. Will continue to monitor this patient closely. cc: Jose Montero MD
[2019-08-26] MEDS: MIRALAX PO SCH ×2 (11:41→21:13)
[2019-08-26] MEDS: ZOFRAN IV PRN (16:58)
[2019-08-26] MEDS ORDERED: APRESOLINE PO SCH (17:43)
[2019-08-26] MEDS ORDERED: APRESOLINE PO ONE ×2 (18:00)
[2019-08-26] MEDS ORDERED: D50W SYRINGE IV ONE (20:53)
[2019-08-27] MEDS ORDERED: APRESOLINE PO SCH (05:00)
[2019-08-27] MEDS: APRESOLINE PO SCH ×3 (05:22→20:16)
[2019-08-27] MEDS: HEPARIN SUBQ SCH ×2 (05:22→17:24)
[2019-08-27] MEDS: PROTONIX PO SCH ×2 (05:23→08:40)
[2019-08-27] MEDS: PERCOCET-10 PO PRN ×2 (05:31→08:37)
[2019-08-27] MEDS: ZOFRAN IV PRN ×3 (05:31→16:26)
[2019-08-27] MEDS: HUMALOG SUBQ SCH ×4 (06:10→20:15)
[2019-08-27] MEDS: LANTUS INSULIN SUBQ SCH (08:38)
[2019-08-27] MEDS: MIRALAX PO SCH ×2 (08:39→20:16)
[2019-08-27] MEDS: KEPPRA PO SCH ×2 (08:39→20:16)
[2019-08-27] MEDS: NORVASC PO SCH (08:40)
[2019-08-27] MEDS: DILANTIN PO SCH ×3 (08:40→17:24)
[2019-08-27] MEDS: ASPIRIN PO SCH (08:40)
[2019-08-27] MEDS ORDERED: TIGHT: 0.2 ML/HR FOR DIALYSIS MISC PRN (09:45)
[2019-08-27] MEDS ORDERED: NS 2,000 ML MISC PRN (09:45)
[2019-08-27] MEDS ORDERED: HEPARIN IV PRN (09:45)
--- NOTE | 2019-08-27 14:41 | PROVIDER PROGRESS NOTE ---
Progress Note Subjective: Voiced vomiting last night and feeling something growing on her left ear. Denies any other complaints. Objective: Temperature 97.8, pulse 90, respirations 18, blood pressure 156/92, 02 sat 93% on room air. General: chronically ill appearing female lying in bed resting in no distress. HEENT: normocephalic, atraumatic, pupils equal and reactive. Mucous membranes moist and trachea midline. Skin: open areas, some with scabs to face. Dependent facial edema to the right. Cyst like round area to upper earlobe fold on left. Neck: supple, 6 cm JVD Cardiovascular: s1s2 with crescendo-decrescendo systolic murmur 3/6. [place] best at left sternal border. No Gallop. Respiratory: clear with equal air entry Abdomen: soft, nontender, nondistended, bowel sounds present. : non inspected Extremities: Trace edema to BLE Neurological: Alert and oriented to person, place, and time. Labs: intake 2440, Output 600. Impression: Chronic kidney disease stage 5D. She will receive her routine hemodialysis treatment. Blood pressure. Stable. Fluid volume. Overloaded. Will treat with hemodialysis today. Anemia. within target. Electrolytes and acid base balance. Stable. HD in place today. Nutrition. Adequate, says she skips breakfast but does good on lunch and dinner. Medication review. No change.
[2019-08-27] MEDS: ZOFRAN ODT PO PRN (20:14)
[2019-08-27] MEDS ORDERED: INSTA-GLUCOSE PO ONE ×2 (20:22→21:09)
[2019-08-27] MEDS ORDERED: GLUCAGON SUBQ ONE (20:59)
[2019-08-27] MEDS ORDERED: STERILE WATER INJ. ONE (21:34)
[2019-08-28] MEDS: HEPARIN SUBQ SCH ×2 (05:30→17:37)
[2019-08-28] MEDS: PERCOCET-10 PO PRN ×3 (05:30→22:44)
[2019-08-28] MEDS: APRESOLINE PO SCH ×3 (05:31→22:49)
[2019-08-28] MEDS: PROTONIX PO SCH ×2 (05:31→06:20)
[2019-08-28] MEDS ORDERED: TIGHT: 0.2 ML/HR FOR DIALYSIS MISC PRN (06:34)
[2019-08-28] MEDS ORDERED: HEPARIN IV PRN (06:34)
[2019-08-28] MEDS ORDERED: NS 2,000 ML MISC PRN (06:34)
[2019-08-28] MEDS: HUMALOG SUBQ SCH ×5 (07:40→22:53)
--- NOTE | 2019-08-28 07:50 | DISCHARGE SUMMARY ---
ADMISSION DATE: 08/21/2019 DISCHARGE DATE: 08/27/2019 Addendum DISCHARGE DIAGNOSES: Please review prior discharge summary for complete list of diagnoses. 1. Seizure due to hypoglycemia. 2. Uncontrolled diabetes mellitus insulin-dependent with recurrent hypoglycemia. 3. Left-sided ribcage pain due to old fractures. HOSPITAL COURSE: Patient has been admitted to the hospital. She was ready to be discharged 2 days after she was admitted for hypoglycemia. She was placed with infusion of D5 normal saline. Blood sugar has been back to normal. The patient reports some episodes of nausea, and sometimes she does not eat, but she continues to use her regular insulin. At this point, the patient has been recommended to skip the doses of insulin as she is not eating. Also, it is important to remark that this patient also has an episode of seizure at admission that never happened again here. It is important to remark that both levels of Keppra and phenytoin has been low so we agreed to provide this patient with a prescription for treatment with both medications. She has been advised to use her medications accordingly. At this point, the patient is going to be discharged in stable condition. DISCHARGE PHYSICAL EXAMINATION: Vital Signs: Temperature 97.6 degrees, heart rate 94, respiratory rate 19, blood pressure 176/102, and O2 saturation 100% on room air. General: This is a chronically ill appearing 39-year-old female lying in bed in no acute distress. Cardiovascular: S1 and S2 heard. No murmurs, gallops or rubs. Regular rate and rhythm. Respiratory: Clear bilaterally to auscultation. No work of breathing or using accessory muscles. Abdomen: Soft. Nontender to palpation. Bowel sounds present. No organomegaly. Extremities: No clubbing, cyanosis, or edema. Peripheral pulses present. Moves all 4 extremities. DISCHARGE DISPOSITION: Home to self-care with home health. DISCHARGE MEDICATIONS: Providing prescriptions for his current chronic medical conditions. In this case, phenytoin, Keppra, and a medication for pain. In this case, tramadol and also lidocaine patches. cc: MD GARY Gonzalez
[2019-08-28] MEDS: DILANTIN PO SCH ×3 (12:05→16:26)
[2019-08-28] MEDS: ASPIRIN PO SCH (12:13)
[2019-08-28] MEDS: KEPPRA PO SCH ×2 (12:13→22:50)
[2019-08-28] MEDS: ZOFRAN ODT PO SCH ×2 (12:13→16:26)
[2019-08-28] MEDS: NORVASC PO SCH (12:13)
[2019-08-28] MEDS: MIRALAX PO SCH ×2 (12:13→22:46)
--- NOTE | 2019-08-28 14:40 | PROGRESS NOTE ---
DATE: 08/28/2019 SUBJECTIVE: The patient reports feeling fine. No more episodes of seizure. No other issues noted, as per nursing staff overnight. OBJECTIVE: Vital Signs: Temperature 97.6 degrees, heart rate 100, respiratory rate 16, blood pressure 153/89, O2 saturation 100% on room air. General: This is a 39-year-old, female lying in bed, in no acute distress. Cardiovascular: S1, S2 heard. No murmurs, gallops, or rubs. Regular rate and rhythm. Respiratory: Clear bilaterally to auscultation. No work of breathing or using accessory muscles. Abdomen: Soft, a little bit distended. Nontender to palpation. Bowel sounds present. No organomegaly. Extremities: No clubbing, cyanosis, or edema. Peripheral pulses present in both legs. Neurological: Patient alert and oriented x3. Moves 4 extremities. LABORATORY DATA: Reviewed. ASSESSMENT AND PLAN: 1. Seizures due to hypoglycemia with prior history of seizure disorder. 2. 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 3. Chronic diastolic congestive heart failure. 4. End-stage renal disease, on dialysis on Tuesday, Tuesday and Tuesday. 5. Left side ribcage fracture. 6. Gastroesophageal reflux disease. 7. Hypertension. 8. History of cerebrovascular accident. At this point, the patient is medically stable. We discharged this patient yesterday, but we were not aware that this patient requested a rehab facility placement. At this point, patient is basically waiting for a rehab bed. We will continue with current medical management. cc: Jose Montero MD
--- NOTE | 2019-08-28 16:01 | NEPHROLOGY PROGRESS NOTE ---
DATE: 08/28/2019 SUBJECTIVE: She is resting, pain today. No shortness of breath. Nausea has been persistent. OBJECTIVE: Vital Signs: Blood pressure 153/89, heart rate 100, respirations 16, afebrile. General: No acute distress. Skin: Warm and dry. Heart: Regular with a murmur. Lungs: Equal. No crackles. Abdomen: Soft. Extremities: 2+ edema. IMPRESSION: Chronic kidney disease 5D. Volume overload. We are dialyzing more frequently as we work on her volume status. 4K bath today. cc: Hardy Kay MD
[2019-08-28] MEDS: ZOFRAN ODT PO PRN (22:50)
[2019-08-29] MEDS: APRESOLINE PO SCH ×3 (05:02→22:23)
[2019-08-29] MEDS: PROTONIX PO SCH (06:44)
[2019-08-29] MEDS: HEPARIN SUBQ SCH ×2 (06:44→18:17)
[2019-08-29] MEDS: HUMALOG SUBQ SCH ×4 (06:44→22:57)
[2019-08-29] MEDS: ZOFRAN ODT PO SCH ×3 (06:44→16:06)
[2019-08-29] MEDS ORDERED: HEPARIN IV PRN (07:34)
[2019-08-29] MEDS ORDERED: TIGHT: 0.2 ML/HR FOR DIALYSIS MISC PRN (07:34)
[2019-08-29] MEDS ORDERED: NS 2,000 ML MISC PRN (07:34)
[2019-08-29] MEDS ORDERED: SORBITOL PO ONE (10:31)
[2019-08-29] MEDS: PERCOCET-10 PO PRN ×2 (12:11→18:16)
[2019-08-29] MEDS: MIRALAX PO SCH ×2 (12:12→22:23)
[2019-08-29] MEDS: ASPIRIN PO SCH (12:13)
[2019-08-29] MEDS: DILANTIN PO SCH ×3 (12:14→16:07)
[2019-08-29] MEDS: NORVASC PO SCH (12:15)
[2019-08-29] MEDS: KEPPRA PO SCH ×2 (12:15→22:23)
--- NOTE | 2019-08-29 12:25 | NEPHROLOGY PROGRESS NOTE ---
DATE: 08/29/2019 SUBJECTIVE: She is currently on dialysis. Complaining of constipation. Pain is resolved. Shortness of breath is resolved. OBJECTIVE: Vital Signs: Blood pressure 173/111, repeat 158/90, heart rate 90, respirations 16, afebrile. General: No acute distress. Skin: Warm and dry. HEENT: Conjunctivae are pink. Neck: Neck veins are not appreciated. Heart: Regular with systolic and diastolic murmur. Lungs: Equal breath sounds. No crackles. Abdomen: Soft, nontender. Bowel sounds present. Extremities: There is 1+ edema. No clubbing or cyanosis. IMPRESSION: 1. Chronic kidney disease 5D. Continue her routine dialysis. We will check labs on her next routine dialysis treatment. No data regarding electrolytes, acid-base, anemia. 2. Hypertension. Varying widely. Likely related to poor gastrointestinal absorption of her medication. 3. Volume overload. Continue to challenge her dry weight. 4. Constipation. Add sorbitol. cc: Hardy aKy MD
[2019-08-29] MEDS ORDERED: GOLYTELY PO ONE (12:35)
--- NOTE | 2019-08-29 13:02 | PROGRESS NOTE ---
DATE: 08/29/2019 SUBJECTIVE: The patient reports that during her hospitalization here, she is here 8 days, she has not been able to have bowel movements. She is complaining of more nausea and vomiting which I think is related to this prolonged constipation. OBJECTIVE: Vital Signs: Temperature 97.7 degrees, heart rate 91, respiratory rate 15, blood pressure 158/90, O2 saturation 100% on room air. General Examination: This is a chronically ill- appearing, 39-year-old, female lying in bed, in no acute distress. Cardiovascular Examination: S1 and S2 heard. No murmurs, gallops, or rubs. Regular rate and rhythm. Respiratory Examination: Clear bilaterally to auscultation. No work of breathing or using accessory muscles. Abdomen: Soft. A little bit distended. Nontender to palpation. Bowel sounds present. No organomegaly. Extremities: No clubbing, cyanosis, or edema. Peripheral pulses present in both legs. Neurological Examination: The patient is alert and oriented x3. Moves 4 extremities. Laboratory Data: Reviewed. ASSESSMENT: 1. Seizures due to hypoglycemia with prior history of seizure disorder. 2. Uncontrolled diabetes mellitus type 2. 3. Chronic diastolic congestive heart failure. 4. End-stage renal disease, on dialysis on Tuesday, Tuesday, and Tuesday. 5. Left side ribcage fracture. 6. Gastroesophageal reflux disease. 7. Hypertension. 8. History of cerebrovascular accident. 9. Constipation. PLAN: At this point, the patient is medically stable. She reports constipation for the last 8 days. We are going to provide GoLYTELY until she starts moving her bowels. Hopefully, tomorrow, we will be able to send this patient to a rehab facility. cc: Jose Montero MD
[2019-08-30] MEDS: HEPARIN SUBQ SCH ×2 (05:47→18:08)
[2019-08-30] MEDS: APRESOLINE PO SCH ×3 (05:47→20:09)
[2019-08-30] MEDS: PROTONIX PO SCH (06:24)
[2019-08-30] MEDS: ZOFRAN ODT PO SCH ×3 (06:24→16:35)
[2019-08-30] MEDS: HUMALOG SUBQ SCH ×4 (06:42→21:28)
[2019-08-30] MEDS: DILANTIN PO SCH ×3 (08:52→18:08)
[2019-08-30] MEDS: MIRALAX PO SCH ×2 (08:52→20:09)
[2019-08-30] MEDS: NORVASC PO SCH (08:52)
[2019-08-30] MEDS: ASPIRIN PO SCH (08:52)
[2019-08-30] MEDS: KEPPRA PO SCH ×2 (08:52→20:09)
[2019-08-30] MEDS: COZAAR PO SCH (11:45)
--- NOTE | 2019-08-30 15:47 | PROGRESS NOTE ---
DATE: 08/30/2019 SUBJECTIVE: Patient reports feeling fine. She got several bowel movements after we started GoLYTELY on her. No nausea, vomiting or abdominal pain. OBJECTIVE: Vital Signs: Temperature 97.6, heart rate 91, respiratory rate 18, blood pressure 182/99, O2 saturation 97% on room air. General examination: This is a chronically ill- appearing, 39-year-old female, lying in bed in no acute distress. Cardiovascular exam: S1, S2 heard. No murmurs, gallops, or rubs. Regular rate and rhythm. Respiratory exam: Clear bilaterally to auscultation. No work of breathing or using accessory muscles. Abdomen: Soft, nontender to palpation. A little bit distended, but bowel sounds present. No organomegaly. Extremities: No clubbing, cyanosis, or edema. Peripheral pulses present in both legs. Neurological exam: Patient alert and oriented x3. Moves 4 extremities. LABORATORY DATA: Reviewed. ASSESSMENT: 1. Seizures due to hypoglycemia with prior history of seizure disorder. 2. Uncontrolled diabetes mellitus type 2. 3. Chronic diastolic congestive heart failure. 4. End-stage renal disease on dialysis Tuesday, Tuesday and Tuesday. 5. Left side ribcage fracture. 6. Gastroesophageal reflux disease. 7. Hypertension. 8. History of cerebrovascular accident. 9. Constipation. PLAN: At this point, patient is stable. We provide GoLYTELY for constipation; that did help a lot. Blood pressure is a little bit elevated, so we have started her on hydralazine 25 mg p.o. 3 times per day. We will continue with that. If the patient continues to have persistent elevation of blood pressure, we will add a new medication. At this point, we are waiting for a rehab bed; that most likely will be tomorrow. cc: Jose Montero MD
--- NOTE | 2019-08-30 15:48 | PROVIDER PROGRESS NOTE ---
Progress Note Subjective: Pt denies any uremic complaints. She voices no nausea at the moment. Objective: temperature 97.7, pulse 87, respirations 18, blood pressure 162/92, 02 sat 98% on room air. General: chronically ill appearing -[place] female lying in bed resting with her eyes closed in no distress. HEENT: normocephalic, atraumatic, pupils equal and reactive. Mucous membranes moist and trachea midline. Skin: open areas to face with scabs. Warm and dry. Neck: Supple, no JVD observed Cardiovascular: S1S2, systolic murmur grade 3/6 heard best at the left sternal border. No gallop. Respiratory: clear anteriorly with equal air entry. Abdomen: soft, nontender, nondistended. Bowel sounds present. : non-inspected Extremities: 1+ pitting edema in bilateral feet Neurological: alert and oriented to person, place, and time. Labs: intake 1822, output 3000. Impression: Chronic kidney disease stage 5D. She had her routine hemodialysis yesterday with no complaints. Blood pressure. Varies. Above target. Adding losartan. Fluid volume. Euvolemic on exam. Anemia, electrolytes, acid base balance: will assess with tomorrow labs Nutrition. Encouraged to eat. Ambulation. Planning on discharging to rehab. Medication review.
[2019-08-30] MEDS: PERCOCET-10 PO PRN (18:14)
[2019-08-31] MEDS: HEPARIN SUBQ SCH (06:04)
[2019-08-31] MEDS: PROTONIX PO SCH (06:04)
[2019-08-31] MEDS: ZOFRAN ODT PO SCH ×2 (06:04→12:49)
[2019-08-31] MEDS: HUMALOG SUBQ SCH ×2 (06:04→14:25)
[2019-08-31] MEDS: APRESOLINE PO SCH ×2 (06:05→14:29)
[2019-08-31] MEDS ORDERED: NS 2,000 ML MISC PRN (07:52)
[2019-08-31] MEDS ORDERED: HEPARIN IV PRN (07:52)
[2019-08-31 07:54] VITALS: BP 167/98
[2019-08-31 09:06] LABS: BASO# 0.11 X1000 (0.0-0.2); BASO% 1.5 % (0.0-0.8); EOS# 0.15 X1000 (0.0-0.7); EOS% 2.1 % (0.0-10.0); HEMOGLOBIN 11.3 g/dL (12.0-16.0); LYMPH# 1.38 X1000 (1.2-3.4); LYMPH% 19.2 % (20.5-51.1); MCHC 32.3 g/dL (33-37); MCV 92.8 FL (81-99); MONO# 0.58 X1000 (0.11-0.59); MONO% 8.1 % (1.7-9.3); MPV 9.9 FL (7.4-10.4); NEUT# 4.97 X1000 (1.4-6.5); NEUT% 69.1 % (42.2-75.2); PLT 320 X1000 (130-400); RBC 3.77 XMIL (4.2-5.4); RDW 17.9 % (11.5-14.5); WBC 7.19 X1000 (4.8-10.8)
[2019-08-31 09:35] LABS: ALBUMIN 3.6 g/dL (3.5-5.0); CALCIUM 8.4 mg/dL (8.8-10.2); CREATININE 3.4 mg/dL (0.5-0.9); PHOSPHORUS 1.6 mg/dL (2.7-4.5); POTASSIUM 4.1 mmol/L (3.5-5.1)
--- NOTE | 2019-08-31 10:18 | DISCHARGE SUMMARY ---
ADMISSION DATE: 08/21/2019 DISCHARGE DATE: ADDENDUM: DISCHARGE DIAGNOSES: 1. 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 2. Uncontrolled diabetes mellitus type 2. 3. Chronic diastolic congestive heart failure. 4. End-stage renal disease on dialysis Tuesday, Tuesday, and Tuesday. 5. Left-sided rib cage fracture. 6. Gastroesophageal reflux disease. 7. Hypertension. 8. History of cerebrovascular accident. 9. Constipation. HOSPITAL COURSE: Please refer to the 2 previous discharge summaries dictated on this patient. Basically, this patient has stayed the last few days awaiting for a rehab bed. She has been medically stable. She has continued taking her home medications. No issues noted on the last 2 to 3 days. DISCHARGE PHYSICAL EXAMINATION: Vital Signs: Temperature 98.1 degrees, heart rate 99, respiratory rate 15, blood pressure 167/98, and O2 saturation 99% on room air. General: This is a chronically ill-appearing 39-year-old female, lying in bed, in no acute distress. Cardiovascular: S1, S2 heard. No murmurs, gallops, or rubs. Regular rate and rhythm. Respiratory: Clear bilaterally to auscultation. No work of breathing or using accessory muscles. Abdomen: Soft. A little bit distended with palpation. Bowel sounds present. No organomegaly. Extremities: No clubbing, cyanosis, or edema. Peripheral pulses present in both legs. Neurological: The patient is alert, oriented x3. Moves 4 extremities. DISCHARGE DISPOSITION: Patient is going to rehab facility. LIST OF MEDICATIONS: We have not changed any of her medications in the last 3 days. Please check prior list of medications dictated on the previous discharge summary. cc: Jose Montero MD
--- NOTE | 2019-08-31 11:47 | NEPHROLOGY PROGRESS NOTE ---
DATE: 08/31/2019 SUBJECTIVE: She is planning for discharge today. No nausea, vomiting, or chest pain. OBJECTIVE: Vital Signs: Blood pressure 167/98, heart rate 99, respirations 15, afebrile. General: No acute distress. Skin: Warm and dry. Conjunctivae are pink. Neck: Neck veins are not distended. Heart: Regular with systolic murmur. Lungs: Equal. No crackles. Abdomen: Soft. Extremities: With trace edema. No clubbing or cyanosis. IMPRESSION/PLAN: Chronic kidney disease 5D. She will have her routine hemodialysis treatment today. Electrolytes/acid base/anemia all in target. Blood pressure is elevated. It waxes and wanes. Her absorption of medications is poor and unpredictable. I added losartan yesterday. cc: Hardy Kay MD
[2019-08-31] MEDS: DILANTIN PO SCH ×3 (12:43→14:24)
[2019-08-31] MEDS: NORVASC PO SCH (12:43)
[2019-08-31] MEDS: ASPIRIN PO SCH (12:43)
[2019-08-31] MEDS: MIRALAX PO SCH (12:43)
[2019-08-31] MEDS: KEPPRA PO SCH (12:43)
[2019-08-31] MEDS: COZAAR PO SCH (12:43)
== END 2019-08-31 16:00 | DRG 917 ==
LOC: 1N 22:54 → ED 22:54 → OBSVTOIN 08-21 03:27 → SUATTDRO 08-21 03:27
PROVIDERS: ATTEND Internal Medicine

== ENCOUNTER 2019-09-02 11:41 | Inpatient (IN) ==
[2019-09-02] MEDS ORDERED: NS 1,000 ML IV ONE (12:07)
[2019-09-02] MEDS ORDERED: POTASSIUM CHLORIDE 20 MEQ/SWI 20 MEQ/100 ML IVPB IV PRN ×2 (12:07)
[2019-09-02] MEDS ORDERED: SODIUM BICARBONATE 8.4% 100 MEQ in STERILE WATER INJ. 500 ML IV PRN ×2 (12:07→14:12)
[2019-09-02] MEDS ORDERED: D50W SYRINGE IV PRN ×2 (12:07)
[2019-09-02] MEDS ORDERED: POTASSIUM CHLORIDE 10% LIQUID PO PRN ×2 (12:07→14:12)
[2019-09-02] MEDS ORDERED: SODIUM PHOSPHATE 30 MMOL in D5W 250 ML IV PRN ×2 (12:07→14:12)
[2019-09-02] MEDS ORDERED: HUMULIN R IV ONE (12:07)
[2019-09-02] MEDS ORDERED: MAGNESIUM SULFATE 2 GM/S.W.I. 2 GM/50 ML IVPB IV PRN (12:07)
[2019-09-02] MEDS ORDERED: POTASSIUM CHLORIDE 20% LIQUID PO PRN ×2 (12:07→14:12)
[2019-09-02] MEDS ORDERED: PEPCID IV ONE (12:09)
[2019-09-02] MEDS ORDERED: ZOFRAN IV ONE (12:09)
[2019-09-02] MEDS ORDERED: SODIUM CHLORIDE 0.9% INJ ONE (12:10)
[2019-09-02] MEDS ORDERED: HUMULIN R 100 UNIT in NS 100 ML IV SCH (12:15)
[2019-09-02] MEDS ORDERED: NS 1,000 ML IV SCH (12:15)
[2019-09-02 12:34] LABS: ALLEN TEST NO; BE -24.2 mmoll (-3.0-3.0); BLOOD TYPE ARTERIAL; HCO3-(ACT) 6.1 mmoll (20.0-26.0); METHB 0.5 % (0.0-1.5); O2(CT) 13.7 mL/dL (15.0-23.0); PO2(98.6) 108 mmHg (60-100); SAMPLE BLOOD; SAO2 98.5 % (95.0-100.0); THB 9.9 g/dL (11.5-17.4)
[2019-09-02 12:39] LABS: MODALITY ROOM AIR
[2019-09-02 12:42] LABS: PCO2(98.6) 18 mmHg (35-45); pH(98.6) 7.03 (7.35-7.45)
[2019-09-02 12:56] LABS: ACETONE SERUM LARGE (NEGATIVE)
[2019-09-02 13:08] LABS: CK PROFILE 301 U/L (24-173)
[2019-09-02 13:09] LABS: AGAP 48; CHLORIDE 84 mmol/L (98-107); POTASSIUM 4.6 mmol/L (3.5-5.1); SODIUM 136 mmol/L (136-145); TCO2 4 mmol/L (25-35)
[2019-09-02 13:13] LABS: ALB/GLOB RATIO 1.2; ALBUMIN 3.7 g/dL (3.5-5.0); ALKALINE PHOSPHATASE 428 U/L (32-104); BUN 65 mg/dL (8-22); CALCIUM 8.1 mg/dL (8.8-10.2); COSMO 347; CREATININE 4.3 mg/dL (0.5-0.9); ESTIMATED GFR 14; GOT 85 U/L (10-30); GPT 63 U/L (10-36); MAGNESIUM 2.1 mg/dL (1.5-2.7); PHOSPHORUS 6.4 mg/dL (2.7-4.5); TOTAL PROTEIN 6.9 g/dL (6.3-8.3)
[2019-09-02 13:16] LABS: GLUCOSE 1104 mg/dL (70-104)
[2019-09-02 13:22] LABS: HEMATOCRIT 34.1 % (37.0-47.0); HEMOGLOBIN 9.8 g/dL (12.0-16.0); MCH 30.1 PG (27-31); MCHC 28.7 g/dL (33-37); MCV 104.6 FL (81-99); RBC 3.26 XMIL (4.2-5.4); RDW 18.8 % (11.5-14.5); WBC 17.19 X1000 (4.8-10.8)
[2019-09-02 13:31] LABS: CK INDEX 6.1 (0.0-2.5); CK-MB 18.45 ng/mL (0.0-5.0)
--- NOTE | 2019-09-02 13:35 | Diag Imaging Result Doc PS360 ---
EXAM: CHEST-PORTABLE 09/02/2019 HISTORY: ams TECHNIQUE: AP portable at 1319 COMMENT: There is cardiomegaly. There are platelike opacities in the lingula and left lower lobe and right upper lobe consistent with atelectasis. This is similar in appearance to the previous study of 08/21/2019 at least with respect to the left lower lobe. IMPRESSION: Patchy atelectasis. Cardiomegaly. Electronically signed by Issa Castro 09/02/2019 1:33 PM
--- NOTE | 2019-09-02 13:41 | Diag Imaging Result Doc PS360 ---
EXAM: CT HEAD W/O CONTRAST 09/02/2019 HISTORY: ams TECHNIQUE: This exam was performed using automated exposure control, adjustment of mA or kV according to patient size, and/or use of iterative reconstruction technique. 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 This is very likely responsible for the patient's seizure disorder. There are patchy lucencies in the periventricular white matter both hemispheres. There is a mild degree of generalized cerebral atrophy. No evidence of bleed, mass effect, or abnormal extra-axial fluid collection is present. The visualized paranasal sinuses are clear. There is incomplete fusion of the posterior arch of C1. The calvarium is intact. Compared to 08/21/2019 there has been no significant change. IMPRESSION: No evidence of acute intracranial disease. Electronically signed by Issa Castro 09/02/2019 1:38 PM
[2019-09-02] MEDS ORDERED: VANCOMYCIN 1 GM/NS 1 GM/250 ML IVPB IV ONE (13:43)
[2019-09-02] MEDS ORDERED: ZOSYN 3.375 GM in NS 50 ML IV ONE (13:43)
--- NOTE | 2019-09-02 13:53 | PROVIDER DOCUMENTATION ---
This chart was entered by Kirsten Cha Scribe, acting as scribe for Lorenzo Avilez MD. HPI-General Adult - General Stated Complaint: HYPERGYLCEMIA Time Seen by Provider: 09/02/19 12:01 Source: EMS, [facility] records Allergies/Adverse Reactions: Patient Allergies Allergy/AdvReac Type Severity Reaction Status Date / Time adhesive Allergy RASH Verified 08/20/19 23:20 Home Medications: Home Medication List Medication Instructions Recorded Confirmed Last Taken Type Levetiracetam 1 tab PO BID 08/07/19 08/20/19 Unknown History Amlodipine [Norvasc] 10 mg PO DAILY #60 tab 08/13/19 08/20/19 Unknown Rx Aspirin 81 mg PO DAILY chewtab 08/13/19 08/20/19 Unknown Rx Insulin Glargine [Lantus Insulin] 8 unit SUBQ DAILY #0 08/13/19 08/20/19 08/03/19 09:00 Rx Lidocaine 5% Patch [Lidoderm] 1 ea TOP DAILY #30 patch 08/23/19 Unknown Rx Phenytoin [Dilantin] 100 mg PO TID #90 cap 08/23/19 Unknown Rx Levetiracetam [Keppra] 250 mg PO BID #60 tab 08/27/19 Unknown Rx Tramadol [Ultram] 50 mg PO Q6H PRN PRN #30 tab 08/27/19 Unknown Rx - History of Present Illness -Gen Adult Nature of Presenting Problems: 39 y/o female presents to the ED via EMS from [facility] with blood sugar greater than 600 and AMS according to [facility] staff pre EMS. EMS also gives a history of kidney failure and active dialysis and states the patient says the [facility] has not been administering her insulin. Location of Pain/Injury: reports: generalized Onset/Duration: reports: unsure - Diabetes Related Context Context: reports: high blood sugar, change in mental status Review of Systems - Adult - REVIEW OF SYSTEMS - ADULT Constitutional: denies: chills, fever, weight gain, weight loss Eyes: reports: no symptoms reported Ears, Nose, Mouth & Throat: reports: no symptoms reported Cardiovascular: reports: no symptoms reported Respiratory: reports: no symptoms reported Gastrointestinal: reports: no symptoms reported Genitourinary: reports: no symptoms reported Musculoskeletal: reports: no symptoms reported Integumentary: reports: no symptoms reported Neurological: reports: slurred speech, other (ams). denies: seizure Psychiatric: reports: no symptoms reported Endocrine: reports: see HPI, other (BS greater than 600 at [facility] facility). denies: excessive sweating Hematologic/Lymphatic: reports: no symptoms reported Allergic/Immunologic: reports: no symptoms reported All Other Systems: Reviewed and Negative Past History - Adult - PAST MEDICAL HISTORY-ADULT Review of Records: reports: Old Records Reviewed, Nursing Assessment Review, Medications Reviewed Major Childhood Illnesses: reports: denies history Cardiovascular: reports: CHF, HTN, hyperlipidemia, other (cardiomyopathy) Respiratory: reports: denies history Gastrointestinal: reports: GERD, other (gastroparesis, eroding esophagus) Obstetrical/Gynecological: reports: denies history Genitourinary: reports: dialysis (MWF), kidney disease Musculoskeletal: reports: denies history Neurological: reports: CVA, Seizures/Epilepsy Psychiatric: reports: anxiety Endocrine/Immune: reports: anemia, Diabetes Other Conditions: reports: cataract/glaucoma, other (VRE) - PRIOR SURGERIES/PROCEDURES Surgical/Procedure History: reports: colonoscopy, cholecystectomy, indwelling device (dialysis access), other (cataract removal; cornea transplant; lap; feeding tube) - PRIOR HOSPITALIZATIONS Prior Hospitalizations: reports: for other non-related - IMMUNIZATION STATUS Childhood Immunizations: See Nurse Assessment Flu Vaccine: See Nurse Assessment - FAMILY HISTORY Family History: reviewed, not pertinent - SOCIAL HISTORY Smoking: non-smoker Physical Exam-General - PHYSICAL EXAM-ADULT Initial Vital Signs Reviewed: Yes - CONSTITUTIONAL General Appearance: lethargic, other (opens eyes to voice and mumbles) - EYES Eyes: other (pinpoint pupil bilaterally) - HEAD, EARS, NOSE, MOUTH & THROAT HENMT: other (1.0 x 1.5 cm. nonfluctuant excoriated sore lower lip, sore tip of nose) - RESPIRATORY Respiratory: lungs clear, normal breath sounds, no respiratory distress, no accessory muscle use. negative: rales, rhonchi, wheezing - CARDIOVASCULAR Cardiovascular: regular rate, rhythm, no gallop, no murmur, other (1+ pitting edema bilateral feet) - GASTROINTESTINAL (ABDOMEN) Abdominal Exam: soft, tenderness (slightly to LUQ) - MUSCULOSKELETAL Back Exam: other (fistula right upper arm w/good thrill) Extremity: normal capillary refill, pedal edema (1+ bilateral feet), other (good distal pulses) - SKIN Integumentary: other (1.0 x 1.5 cm. nonfluctuant excoriated sore lower lip, sore tip of nose, multiple excoriant lesions bilateral arms, upper chest and bilateral upper arm scars from multiple IV's, large bruise RLQ abdomen, and small bruise to LLQ abdomen.) - NEUROLOGIC Neurologic: other (no focal deficits) Progress - PLAN OF CARE/RESULTS Progress/Plan/Lab Results: Laboratory Results - last 24 hr 09/02/19 12:02 POC Glucose 500 H Result Diagrams: 09/02/19 12:28 09/02/19 12:28 - REASSESSMENT Reassessment #1 Time Reassessed: 13:52 Status: improving (Given insulin IV, IVF bolus, DKA protocol started. Also covered with IV Vanco/zosyn in case of sepsis.) - XRAY 1 XRAY Study: Chest Impression: Abnormal, See EMR Report (EXAM: CHEST-PORTABLE 09/02/2019 HISTORY: ams TECHNIQUE: AP portable at 1319 COMMENT: There is cardiomegaly. There are platelike opacities in the lingula and left lower lobe and right upper lobe consistent with atelectasis. This is similar in appearance to the previous study of 08/21/2019 at least with respect to the left lower lobe. IMPRESSION: Patchy atelectasis. Cardiomegaly. Electronically signed by Issa Castro 09/02/2019 1:33 PM 09/02/19 1333 Interpreting Physician: Issa Castro MD Dictated Date/Time: 09/02/19 1332 cc: Lorenzo Avilez MD; David Xie MD) - CT/MRI 1 CT Study: Head Impression: Abnormal, See EMR Report ( EXAM: CT HEAD W/O CONTRAST 09/02/2019 HISTORY: ams TECHNIQUE: This exam was performed using automated exposure control, adjustment of mA or kV according to patient size, and/or use of iterative reconstruction technique. 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 This is very likely responsible for the patient's seizure disorder. There are patchy lucencies in the periventricular white matter both hemispheres. There is a mild degree of generalized cerebral atrophy. No evidence of bleed, mass effect, or abnormal extra-axial fluid collection is present. The visualized paranasal sinuses are clear. There is incomplete fusion of the posterior arch of C1. The calvarium is intact. Compared to 08/21/2019 there has been no significant change. IMPRESSION: No evidence of acute intracranial disease. Electronically signed by Issa Castro 09/02/2019 1:38 PM 09/02/19 1338 Interpreting Physician: Issa Castro MD Dictated Date/Time: 09/02/19 1336 cc: Lorenzo Avilez MD; David Xie MD) - CONSULTS/PCP/HOSPITALIST Notification #1 *Consult/PCP/Hospitalist*: MANNY Weber, paged at 1346 Time Discussed: 13:51 Reason/Comments: ph 7.0, bs 1100 Consult Disposition: Will see in ED, Admit #2 Consult: mary Kay at 1347 Time Discussed: 13:51 Consult Disposition: other (will see) Departure - Departure Date of Disposition Decision: 09/02/19 Time of Disposition Decision: 13:50 DIAGNOSIS: Diabetic ketoacidosis with coma associated with type 1 diabetes mellitus, End- stage renal disease on hemodialysis Disposition: ADMITTED INPATIENT 09 Certified Medical Emergency: Urgent Condition: Critical Referrals and Follow-Ups: David Xie MD [Primary Care Provider] - - Critical Care Note This patient required my direct & personal management of CC.: Yes Total Time (mins): 45 Critical Care Statement: This patient required my direct personal management to treat or rule out processes, the absence of which, could potentiallly result in sudden, clinically significant life or limb threatening deterioration. Attestation - Physician/ SARAI Attestation Patient care was provided by Advanced Practice Provider:: No The physician spent face to face time with patient:: Yes Advanced Practice Provider documentation review:: Supervising physician onsite and consulted in the evaluation and care of this patient. The physician did have a face to face encounter with the patient. This chart was documented by the indicated scribe, (Kirsten hCa, Lina) and accurately reflects the services I performed and decisions made by me, Lorenzo Avilez MD, as attested by the provider's signature.
[2019-09-02] MEDS ORDERED: COMPAZINE IV PRN (14:12)
[2019-09-02] MEDS ORDERED: D5 NS 1,000 ML IV PRN (14:12)
[2019-09-02] MEDS ORDERED: POTASSIUM CHLORIDE 40 MEQ/SWI 40 MEQ/100 ML IVPB IV PRN (14:12)
[2019-09-02] MEDS: NS 1,000 ML IV SCH ×3 (14:26→23:08)
[2019-09-02] MEDS: HUMULIN R 100 UNIT in NS 100 ML IV SCH ×3 (14:30→23:31)
--- NOTE | 2019-09-02 14:31 | HISTORY AND PHYSICAL ---
HISTORY OF PRESENT ILLNESS: Ms. Chaparro is a 39-year-old with frequent admissions here for both DKA and hyperosmolar hyperglycemia. Apparently this morning, she was more lethargic. Blood sugars were above 600 after several sticks, and then she was sent over here from [facility]. They deny history of fever, chills, chest pain, pleuritic pain, or cough. Apparently, she was feeling pretty good yesterday. PAST MEDICAL HISTORY: 1. Corneal implants. 2. AV graft in the right arm. 3. Cholecystectomy. 4. History of PEG tube placement. SOCIAL HISTORY: Negative for alcohol, tobacco, or illicit drugs. FAMILY HISTORY: Mother with history of hypertension, diabetes. Does not know father's side history. ALLERGIES: Adhesive tape. REVIEW OF SYSTEMS: Unable to elicit. Constitutional: According to records, they had not noted any fever or chills. HEENT: No change in visual or hearing acuity. No neck pain. No adenopathy. Respiratory: No respiratory complaints, increased work of breathing, or orthopnea. Cardiovascular: No chest pain or tachy palpitation. GI/: No gross hematuria or dysuria. Musculoskeletal/Neurologic: No focal complaints. Endocrinologic/Hematologic: No significant history. PHYSICAL EXAMINATION: VITAL SIGNS: Pulse is 79, respirations 18, blood pressure 134/80. Weight 140 pounds, height 5 feet 4 inches. AV graft with a palpable bruit. HEENT: Pupils are equal and round. LUNGS: Clear in all lung vail. CARDIOVASCULAR: Regular rhythm and rate without murmur or S3. ABDOMEN: Soft. SKIN: Warm and dry. NEUROLOGIC: She is sleepy. She does arouse to pain and to touch and to voice, but clearly very lethargic. IMAGING AND LABORATORY DATA: White count 17,190, hematocrit 34, platelet count 248,000. Sodium 136, potassium 4.6, chloride 84, bicarb is 4, BUN 65, creatinine 4.3, blood sugar was 5, serum sugar was above 1000 (it was 1100), calculated osmolality 3.47. Phosphorus was 6.4. Alkaline phosphatase 428, AST 85, ALT 63, albumin was 3.2. PH 7.03, pCO2 of 18, PO2 is 108, O2 sats 97% is on room air. Chest x-ray: Patchy atelectasis and some cardiomegaly. Head CT: No evidence of acute intracranial disease. ASSESSMENT AND PLAN: Diabetic ketoacidosis. Will put her on diabetic ketoacidosis protocol. She will need to get some volume back. She is end-stage renal disease and on dialysis. We will ask Dr. Kay to help follow, help us with volume, follow her electrolytes. Her potassium is 4.6 at this time. Bicarbonate was 4. Will move her to intensive care unit. I do not see any evidence of infection. We will give her 1 dose of Rocephin 1 gram now and then 1 every 24 hours. Will check her T4, TSH, B12, and folate, and watch her volume status closely. cc: Brent Blum MD
[2019-09-02 16:56] LABS: ALLEN TEST YES; BE -19.1 mmoll (-3.0-3.0); BLOOD TYPE ARTERIAL; METHB 0.5 % (0.0-1.5); O2(CT) 13.1 mL/dL (15.0-23.0); O2HB 96.3 % (95.0-99.0); PCO2(98.6) 28 mmHg (35-45); PO2(98.6) 92 mmHg (60-100); SAMPLE BLOOD; SAO2 97.8 % (95.0-100.0); THB 9.6 g/dL (11.5-17.4)
--- NOTE | 2019-09-02 16:57 | Diag Imaging Result Doc PS360 ---
EXAM: CHEST-1 VIEW 09/02/2019 HISTORY: central line placement TECHNIQUE: AP portable at 1650 COMMENT: There is a left subclavian central venous catheter with its tip in the superior vena cava just above the right atrium. There is cardiomegaly and increased pulmonary vascularity. The appearance the chest has not changed significantly since 09/02/2019 at 1319. IMPRESSION: Stable chest. Electronically signed by Issa Castro 09/02/2019 4:54 PM
[2019-09-02 16:58] LABS: MODALITY ROOM AIR
[2019-09-02 16:59] LABS: pH(98.6) 7.11 (7.35-7.45)
[2019-09-02 19:15] LABS: CALCIUM 7.7 mg/dL (8.8-10.2); CREATININE 4.2 mg/dL (0.5-0.9); MAGNESIUM 1.8 mg/dL (1.5-2.7); PHOSPHORUS 4.7 mg/dL (2.7-4.5); POTASSIUM 3.8 mmol/L (3.5-5.1)
[2019-09-02] MEDS: POTASSIUM CHLORIDE 20 MEQ/SWI 20 MEQ/100 ML IVPB IV PRN (20:18)
[2019-09-02 20:31] LABS: ALLEN TEST YES; BE -14.7 mmoll (-3.0-3.0); BLOOD TYPE ARTERIAL; HCO3-(ACT) 13.4 mmoll (20.0-26.0); METHB 1.1 % (0.0-1.5); O2(CT) 12.9 mL/dL (15.0-23.0); O2HB 92.9 % (95.0-99.0); PCO2(98.6) 35 mmHg (35-45); PO2(98.6) 70 mmHg (60-100); SAMPLE BLOOD; SAO2 95.1 % (95.0-100.0); THB 9.8 g/dL (11.5-17.4)
[2019-09-02 20:33] LABS: MODALITY ROOM AIR; pH(98.6) 7.17 (7.35-7.45)
[2019-09-02 23:30] LABS: CALCIUM 7.8 mg/dL (8.8-10.2); CREATININE 4.3 mg/dL (0.5-0.9); MAGNESIUM 1.7 mg/dL (1.5-2.7); PHOSPHORUS 3.6 mg/dL (2.7-4.5); POTASSIUM 3.9 mmol/L (3.5-5.1)
[2019-09-03] MEDS: ZOFRAN IV PRN (00:25)
[2019-09-03] MEDS: MAGNESIUM SULFATE 2 GM/S.W.I. 2 GM/50 ML IVPB IV PRN ×2 (00:25→20:56)
[2019-09-03 01:16] LABS: ALLEN TEST NO; BE -10.3 mmoll (-3.0-3.0); BLOOD TYPE ARTERIAL; HCO3-(ACT) 16.8 mmoll (20.0-26.0); METHB 0.4 % (0.0-1.5); O2(CT) 13.5 mL/dL (15.0-23.0); O2HB 93.4 % (95.0-99.0); PCO2(98.6) 38 mmHg (35-45); PO2(98.6) 67 mmHg (60-100); SAMPLE BLOOD; SAO2 95.6 % (95.0-100.0); THB 10.2 g/dL (11.5-17.4); pH(98.6) 7.24 (7.35-7.45)
[2019-09-03 01:19] LABS: MODALITY ROOM AIR
[2019-09-03] MEDS: HUMULIN R 100 UNIT in NS 100 ML IV SCH ×2 (02:43→05:40)
[2019-09-03 03:24] LABS: CALCIUM 7.6 mg/dL (8.8-10.2); CREATININE 4.2 mg/dL (0.5-0.9); MAGNESIUM 1.9 mg/dL (1.5-2.7); POTASSIUM 3.7 mmol/L (3.5-5.1)
[2019-09-03] MEDS: POTASSIUM CHLORIDE 20 MEQ/SWI 20 MEQ/100 ML IVPB IV PRN ×3 (03:52→20:58)
[2019-09-03 04:34] LABS: ALLEN TEST NO; BE -8.1 mmoll (-3.0-3.0); BLOOD TYPE ARTERIAL; HCO3-(ACT) 18.2 mmoll (20.0-26.0); METHB 0.6 % (0.0-1.5); O2(CT) 10.9 mL/dL (15.0-23.0); PCO2(98.6) 44 mmHg (35-45); SAMPLE BLOOD; SAO2 79.1 % (95.0-100.0); pH(98.6) 7.24 (7.35-7.45)
[2019-09-03 04:36] LABS: PO2(98.6) 42 mmHg (60-100)
[2019-09-03 04:37] LABS: MODALITY ROOM AIR; O2HB 77.4 % (95.0-99.0)
[2019-09-03] MEDS: NS 1,000 ML IV SCH ×2 (04:41→06:21)
[2019-09-03 06:33] LABS: BASO# 0.01 X1000 (0.0-0.2); BASO% 0.1 % (0.0-0.8); HEMATOCRIT 28.6 % (37.0-47.0); HEMOGLOBIN 9.7 g/dL (12.0-16.0); IMM GRAN# 0.05 X1000 (0.0-0.04); IMM GRAN% 0.4 % (0.0-0.5); LYMPH# 0.53 X1000 (1.2-3.4); LYMPH% 3.7 % (20.5-51.1); MCH 30.1 PG (27-31); MCHC 33.9 g/dL (33-37); MCV 88.8 FL (81-99); MONO# 1.54 X1000 (0.11-0.59); MONO% 10.9 % (1.7-9.3); MPV 10.7 FL (7.4-10.4); NEUT# 12.01 X1000 (1.4-6.5); NEUT% 84.9 % (42.2-75.2); PLT 184 X1000 (130-400); RBC 3.22 XMIL (4.2-5.4); RDW 16.2 % (11.5-14.5); WBC 14.14 X1000 (4.8-10.8)
[2019-09-03] MEDS ORDERED: LABETALOL IV PRN (06:53)
[2019-09-03 06:54] LABS: HEMOGLOBIN A1C 11.3 % (4.8-6.0)
[2019-09-03] MEDS ORDERED: VANCOMYCIN 1 GM/NS 1 GM/250 ML IVPB IV SCH (07:00)
--- NOTE | 2019-09-03 07:19 | Diag Imaging Result Doc PS360 ---
EXAM: ABDOMEN FLAT/UPRIGHT HISTORY: N/V; NGT placement TECHNIQUE: Two views COMPARISON: 06/21/2019 FINDINGS: There is a nasogastric tube overlying the stomach. The gallbladder has been removed. The bowel loops are not dilated. No organomegaly. There are multiple pelvic phleboliths. Prominent atherosclerosis. IMPRESSION: Nasogastric tube appears to be in the stomach. Electronically signed by Brayan Wooten 09/03/2019 7:17 AM
[2019-09-03 07:20] LABS: ALB/GLOB RATIO 1.2; ALBUMIN 3.5 g/dL (3.5-5.0); CALCIUM 7.5 mg/dL (8.8-10.2); CREATININE 4.2 mg/dL (0.5-0.9); POTASSIUM 3.5 mmol/L (3.5-5.1); TOTAL BILIRUBIN 0.39 mg/dL (0.20-1.00); TOTAL PROTEIN 6.5 g/dL (6.3-8.3)
[2019-09-03 07:33] LABS: FREE T4 0.85 ng/dL (0.93-1.70); TSH 1.31 uIUmL (0.27-4.20)
[2019-09-03] MEDS ORDERED: NS 2,000 ML MISC PRN (07:35)
[2019-09-03] MEDS ORDERED: HEPARIN IV PRN (07:35)
[2019-09-03] MEDS ORDERED: TIGHT: 0.2 ML/HR FOR DIALYSIS MISC PRN (07:35)
[2019-09-03] MEDS: ZOSYN 2.25 GM in NS 50 ML IV SCH ×3 (07:59→22:10)
[2019-09-03] MEDS: PROTONIX IV SCH (08:00)
[2019-09-03] MEDS: D10W 1,000 ML IV SCH (08:23)
[2019-09-03 08:28] LABS: ALLEN TEST YES; BE -6.4 mmoll (-3.0-3.0); BLOOD TYPE ARTERIAL; HCO3-(ACT) 19.9 mmoll (20.0-26.0); METHB 0.5 % (0.0-1.5); O2(CT) 13.9 mL/dL (15.0-23.0); O2HB 94.7 % (95.0-99.0); PCO2(98.6) 37 mmHg (35-45); PO2(98.6) 73 mmHg (60-100); SAMPLE BLOOD; SAO2 96.6 % (95.0-100.0); THB 10.4 g/dL (11.5-17.4); pH(98.6) 7.32 (7.35-7.45)
[2019-09-03 08:31] LABS: MODALITY ROOM AIR
[2019-09-03] MEDS ORDERED: CEREBYX IV SCH ×2 (10:00→11:00)
--- NOTE | 2019-09-03 10:31 | PROGRESS NOTE ---
DATE: 09/03/2019 SUBJECTIVE: I have seen and examined Ms. Chaparro today. She is in the ICU. There is no family member at the bedside. Ms. Chaparro was not able to give me any interval history herself. She seems remarkably lethargic. She will, however, open her eyes upon command, and she would respond by some non-comprehensive sounds. Per the nursing staff, she seems to be fairly stable. OBJECTIVE: Current Vital Signs: Blood pressure is 161/103, pulse of 97, respirations 10, temperature 97.2 degrees, the patient is saturating 100% on room air. General: Ms. Chaparro is a 39- year-old, female. She is in bed. No distress. HEENT: Mucosa is pink and moist. Anicteric. Acyanotic. Neck: Supple. Did not see any JVD. The patient has an NG tube in place, and there is remarkable dark gastric content in the NG tube into the aspiration container. Chest: Good air entry bilaterally. Did not hear any crepitations. No rhonchi. There was no accessory muscle use. Cardiovascular: Regular rate and rhythm. There is about a 3/6 TR murmur. GI: Abdomen was soft. Bowel sounds were present. No hepatosplenomegaly. Extremities: About 1+ pedal edema, both lower and upper extremities. TOMBSTONE SETTER: The patient is lethargic. She will, however, shout when you apply any form of stimuli. She will open her eyes and verbalize some non-comprehensive words when asked certain questions. She would move her extremities upon stimulation, but she would not follow commands. LABORATORY DATA: WBC is 14.14, hemoglobin is 9.7, platelet count of 184,000. Chemistry this morning did show a creatinine of 4.2, which the patient is known to have end-stage renal. Bicarb has improved to 18, and gap has also decreased to 24. The patient has a bicarb of 4 on admission, and had a gap of 48 on admission. AST and ALT are trending down. IMAGING STUDIES: This morning, KUB showed NG tube appears to be in stomach. A chest x-ray which was done yesterday was stable, some cardiomegaly and increased pulmonary vascular vascularity. A CT scan of the head showed no evidence of acute pathology. A chest x-ray which was done initially also showed patchy atelectasis, cardiomegaly. MICROBIOLOGY: So far, microbiology data reveals blood cultures are still pending. Clostridium difficile toxin in the stool was negative. Blood testing in the upper GI content was positive, and stool FOBT was also positive. MEDICATIONS: The patient's current medications have all been reviewed. ASSESSMENT: 1. Altered mental status on presentation, presumed to be global encephalopathy due to metabolic disorders. 2. Diabetic ketoacidosis. 3. Severe high anion gap metabolic acidosis in combination of both diabetic ketoacidosis and lactic acidosis. 4. End-stage renal disease. Patient on dialysis via fistula in the right upper arm. 5. Chronic transaminitis. 6. Gastrointestinal bleed. Hemoglobin and hematocrit seem to be fairly stable. The patient does have remarkable coffee-ground upper secretions. She is currently on proton pump inhibitor, and will continue following her hemoglobin and hematocrit. 7. Uncontrolled hypertension. The patient is on labetalol. 8. Leukocytosis, presumably reactive. However, underlying infection cannot be entirely ruled out. The patient is currently on antimicrobial coverage. 9. Mild fluid overload, most likely due to a combination of fluid resuscitation and end-stage renal disease. 10. History of systolic dysfunction with ejection fraction of 30% on recent echocardiogram, associated with severe tricuspid regurgitation and biventricular failure. Will continue keeping an eye on her cardiovascular status. The patient's home medications will be re- initiated as soon as she is awake and alert enough to swallow them. 11. History of seizure disorder. Will continue to monitor. cc: Cesar Berger MD
[2019-09-03] MEDS ORDERED: NS IV SCH (11:00)
[2019-09-03] MEDS: KEPPRA 250 MG in NS 100 ML IV SCH (11:00)
[2019-09-03 11:38] LABS: CALCIUM 7.6 mg/dL (8.8-10.2); CREATININE 4.4 mg/dL (0.5-0.9); MAGNESIUM 2.1 mg/dL (1.5-2.7); POTASSIUM 4.1 mmol/L (3.5-5.1)
--- NOTE | 2019-09-03 13:56 | NEPHROLOGY CONSULTATION ---
DATE: 09/03/2019 REASON FOR ADMISSION: DKA with altered mental status. REASON FOR CONSULT: Hemodialysis. CONSULTING PHYSICIAN: Dr. Blum. HISTORY OF PRESENT ILLNESS: Ms. Chaparro is a 39-year-old female who is a resident at [facility]. They had noted that her blood sugars upon fingerstick were greater than 600 multiple times yesterday morning. She was more lethargic than usual. Subsequently, she was transferred to [facility] for frequent admissions with DKA and hyperosmolar hyperglycemia. She is currently in the ICU. She is on an insulin drip. She has had fluid volume resuscitation. On her history, it is noted that she had denied any fever, chills, chest pain, pleuritic pain, no cough. No nausea, vomiting, or diarrhea. States that she had been feeling well on Tuesday. The patient is lethargic today. She opens her eyes randomly, unable to follow commands. She remains nonverbal. PAST MEDICAL HISTORY: End-stage renal disease with hemodialysis on Tuesday, Tuesday, Tuesday at the [facility]. She has just recently been discharged from the hospital also for DKA. As noted, this is her fourth visit to the ER since June 21. Diabetes mellitus type 1, history of a CVA, seizure disorders, esophagitis. She is noted to have dilated cardiomyopathy with a left ventricular ejection fraction of 25%. History of recent skin cancers with excisions and cryotherapy. She has hypertension, frequent blood transfusions, GERD, and stomach ulcers, seizure activity. SOCIAL HISTORY: She currently is residing at [facility] for rehab. Otherwise, she lives with her father. She has a history of hypertension, frequent DKA, noted to have a recent sebaceous cyst removed off of her forehead, abscess on her nose. OTHER SURGICAL HISTORY: Cholecystectomy, cardiac stents, previous kidney surgery, previous tunnel dialysis catheters, previous peritoneal dialysis catheter. Currently has a fistula. FAMILY HISTORY: Positive for hypertension, kidney disease, strokes, and diabetes mellitus with a twin sister who previously in her 20s secondary to diabetes and kidney disease. SOCIAL HISTORY: She is single. No children. Denies any alcohol or illicit drug use. No tobacco use. Currently a resident of [facility]. ALLERGIES: Her allergies are listed as adhesives. HOME MEDICATIONS: Reviewed as low-dose aspirin, Norvasc, Dilantin, Ultram, Keppra, Phenergan, and Lantus insulin. REVIEW OF SYSTEMS: Unable to obtain except from previous charts secondary to the patient's altered mental status. VITAL SIGNS: The patient's current vital signs, temperature 96.1 degrees, blood pressure 162/100, heart rate is 90, respirations are 12. She is currently on room air, last recorded saturation 100%. She has an NG tube to low intermittent suction to the left naris. She has had 2337 input, 475 mL output of coffee-ground material to her NG tube. LABORATORY DATA: Sodium 144, potassium 3.7, chloride 99, CO2 of 17, BUN 70, creatinine 4.2, glucose 491. Her anion gap is 20, calcium 7.6, phosphorus 3, albumin 3.7, magnesium 1.9. Her white count 17.19, hemoglobin 9.7. The patient has ABGs this a.m. with pH 7.24, CO2 of 44, PO2 of 42, bicarbonate 18.2. She has a lactate of 5 this a.m. on room air. Acetone checked was large. She currently has a potassium supplement infusing. She has insulin drip infusing. She currently has normal saline at 125 mL an hour. PHYSICAL EXAMINATION: General: This is a 39-year-old female. She is resting quietly in bed. She remains with altered mental status, unable to focus, keep her eyes open. She remains nonverbal. HEENT: Normocephalic, atraumatic. Conjunctiva is pale pink. She has LUDWIG. Mucous membranes are dry. Neck: Supple. Trachea midline. No evidence of JVD. Cardiovascular: She is regular rate and rhythm, large gallop noted. Lungs: Clear to auscultation anteriorly. Equal excursion on room air. Abdomen: Large, soft, nontender. Positive bowel sounds. Genitourinary: Not inspected. Minimal void with dialysis assist. Extremities: Have 1+ edema in both upper and lower extremities, along with some edema to her hips and abdominal region, also to her face. Neurological: As mentioned above. ASSESSMENT AND PLAN: 1. Chronic kidney disease stage 5D. This is patient's routine dialysis day. We will place her on a 3-potassium bath. She is to dialyze for 3-1/2 hours. We will attempt to pull 3 to 4 liters of ultrafiltration secondary to the patient's fluid volume overload and swelling. 2. Electrolytes and acid-base balance. The patient is currently on diabetic protocol. We have stopped all of these fluid secondary to patient's dilated cardiomyopathy. We will start her on D-10 if indicated to correct any drop in her blood sugars while on her insulin drip. 3. Acid-base balance. The patient's original CO2 was at 4. She is now up to 17 with IV insulin. rg 4. Leukocytosis. The patient is currently on Zosyn x1 dose with Rocephin x1 dose. We will start her on vancomycin and continue her Zosyn renal dosed. We evaluate whether she needs to have her blood cultures drawn if not drawn in the emergency room. 5. Hypertension. Patient's blood pressure has been elevated since hospitalization. We will currently add labetalol IV p.r.n. I would like to thank you for allowing us to follow with this patient. Dictated by MANNY Hatch for Hardy Kay MD Face to face encounter, data reviewed, discussed with Gerri Fitzgerald on 09/03/19. I agree with the above assessment and plan of care. jaime cc: MANNY Hatch MD [facility]
[2019-09-03 15:44] LABS: CREATININE 3.1 mg/dL (0.5-0.9); MAGNESIUM 1.8 mg/dL (1.5-2.7); POTASSIUM 4.4 mmol/L (3.5-5.1)
[2019-09-03] MEDS ORDERED: VANCOMYCIN 1 GM/NS 1 GM/250 ML IVPB IV ONE (17:00)
[2019-09-03 19:51] LABS: CALCIUM 8.2 mg/dL (8.8-10.2); CREATININE 2.5 mg/dL (0.5-0.9); MAGNESIUM 1.7 mg/dL (1.5-2.7); POTASSIUM 3.9 mmol/L (3.5-5.1)
[2019-09-03 23:07] LABS: CREATININE 2.7 mg/dL (0.5-0.9); MAGNESIUM 1.9 mg/dL (1.5-2.7); POTASSIUM 4.5 mmol/L (3.5-5.1)
[2019-09-04 02:50] LABS: CALCIUM 7.8 mg/dL (8.8-10.2); MAGNESIUM 2.1 mg/dL (1.5-2.7); POTASSIUM 4.6 mmol/L (3.5-5.1)
[2019-09-04] MEDS: POTASSIUM CHLORIDE 20 MEQ/SWI 20 MEQ/100 ML IVPB IV PRN (04:05)
[2019-09-04] MEDS: D10W 1,000 ML IV SCH (04:09)
[2019-09-04] MEDS: PROTONIX IV SCH (06:04)
[2019-09-04] MEDS: HUMULIN R 100 UNIT in NS 100 ML IV SCH (06:05)
[2019-09-04] MEDS: ZOSYN 2.25 GM in NS 50 ML IV SCH (06:05)
[2019-09-04 07:11] LABS: ALBUMIN 3.2 g/dL (3.5-5.0); CALCIUM 7.7 mg/dL (8.8-10.2); CREATININE 3.1 mg/dL (0.5-0.9); POTASSIUM 4.9 mmol/L (3.5-5.1); TOTAL BILIRUBIN 0.37 mg/dL (0.20-1.00); TOTAL PROTEIN 6.4 g/dL (6.3-8.3)
[2019-09-04 07:13] LABS: EOS# 0.01 X1000 (0.0-0.7); EOS% 0.1 % (0.0-10.0); HEMATOCRIT 28.9 % (37.0-47.0); HEMOGLOBIN 9.9 g/dL (12.0-16.0); IMM GRAN# 0.03 X1000 (0.0-0.04); IMM GRAN% 0.3 % (0.0-0.5); LYMPH# 0.83 X1000 (1.2-3.4); LYMPH% 7.9 % (20.5-51.1); MCH 29.4 PG (27-31); MCHC 34.3 g/dL (33-37); MCV 85.8 FL (81-99); MONO# 0.82 X1000 (0.11-0.59); MONO% 7.8 % (1.7-9.3); MPV 10.7 FL (7.4-10.4); NEUT# 8.86 X1000 (1.4-6.5); NEUT% 83.9 % (42.2-75.2); PLT 162 X1000 (130-400); RBC 3.37 XMIL (4.2-5.4); RDW 16.5 % (11.5-14.5); WBC 10.55 X1000 (4.8-10.8)
[2019-09-04] MEDS: KEPPRA 250 MG in NS 100 ML IV SCH (09:10)
[2019-09-04] MEDS: TYLENOL PO PRN ×2 (09:33→20:10)
[2019-09-04 10:43] LABS: CALCIUM 7.8 mg/dL (8.8-10.2); CREATININE 3.3 mg/dL (0.5-0.9); MAGNESIUM 2.1 mg/dL (1.5-2.7); POTASSIUM 5.3 mmol/L (3.5-5.1)
[2019-09-04] MEDS: LANTUS INSULIN SUBQ SCH (11:17)
[2019-09-04] MEDS: HUMALOG SUBQ SCH ×2 (11:55→17:11)
--- NOTE | 2019-09-04 13:14 | PROGRESS NOTE ---
DATE: 09/04/2019 SUBJECTIVE: This morning Ms. Chaparro refers to be doing a little better. She is more alert and more communicating. She says she does not have a really good appetite, but she is willing to try to eat. Her DKA is completely resolved. OBJECTIVE: Vital signs: Blood pressure 117/87, pulse of 100, respirations 22, and temperature 98.3 degrees. Patient is saturating 100% on room air. General: Ms. Chaparro is a 39-year-old female. She is in bed in no distress. HEENT: Mucosa is pink and moist. Anicteric. Acyanotic. Neck: Supple. There is no JVD. There is a right external jugular catheter IV access in place. Chest: Good air entry bilaterally. No crepitations. No rhonchi. There is a left subclavian central line catheter. Cardiovascular: Regular rate and rhythm. There is a 3/6 TR murmur. No gallops. Abdomen: Soft and nontender. No hepatosplenomegaly. Extremities: Trace pedal edema. APPLICATIONS PROCESSOR: Patient is more awake, alert, and follows basic commands. There is a dialysis AV fistula on the right forearm. LABORATORY DATA: WBC 10.55, hemoglobin is 9.9, and platelet count of 162,000. Chemistry is also reviewed, and is completely unremarkable. Glucose is down to 117. MICROBIOLOGY: Blood culture has been 48 hours negative. C. Diff in the stool is negative. ASSESSMENT: 1. Altered mental status on presentation secondary to metabolic encephalopathy. 2. Diabetes type 1, complicated with DKA on presentation improved. 3. Extremely brittle diabetes. The patient will be started back on a very low dose of long- acting, and with meals today. 4. Endstage renal disease on hemodialysis via AV fistula on the right arm. 5. Coffee-ground emesis. 6. Hemoglobin and hematocrit is fairly stable. Patient is on PPI. 7. Uncontrolled hypertension improved. 8. Leukocytosis presumably reactive. This has normalized. So far, blood cultures have all been negative so we will discontinue the antibiotics. 9. Systolic dysfunction with ejection fraction of 30% on recent echo associated with severe tricuspid regurgitation and biventricular failure. The patient is currently euvolemic. 10. History of seizure disorder. We will continue with her medications and monitor. In general, I think Ms. Chaparro is doing well. We are going to put her back on her p.o. medications. We will discontinue the D10, and start her on a full liquid diet and advance as tolerated. She has been started on a lower dose of insulin regimen. We will observe her in the ICU for another day. Hopefully, transfer her to the floor/discharge tomorrow. cc: Cesar Berger MD MTDD
[2019-09-04] MEDS: DILANTIN PO SCH ×2 (13:47→17:11)
--- NOTE | 2019-09-04 15:11 | NEPHROLOGY PROGRESS NOTE ---
DATE: 09/04/2019 TIME SEEN: 0650. SUBJECTIVE: Ms. Chaparro is resting quietly in bed. She is awake. She uses yes or no for verbal response, and shakes her head appropriately. LABORATORY DATA: Sodium is 137, potassium 4.6, chloride 98, CO2 of 23, BUN 39, creatinine 3, glucose 122, her anion gap is 16, her calcium is 7.8, phosphorus 2.2, albumin 2.1, magnesium 2.1. White count 10.55, hemoglobin 9.9, hematocrit 28.9, with a platelet count of 162,000. Plasma acetone is still pending, negative yesterday. OBJECTIVE: Vital Signs: Temperature 98.1 degrees, blood pressure 110/87, heart rate 98, respirations 14. She is on room air. Last recorded saturation 99%. She has had 1831 in, 4075 out. She had 3.9 L removed off dialysis yesterday. General: This is a 39-year-old, female. She is resting quietly in bed. She appears chronically ill, though no acute distress today. Skin: Warm and dry. HEENT: Normocephalic, atraumatic. Conjunctiva is pale pink. She has LUDWIG. Mucous membranes are dry. NG tube remains to low intermittent suction through the left naris. She continues with coffee-ground material in the tubing. Neck: Supple. Trachea midline. No evidence of JVD, though her face is puffy. Cardiovascular: Regular rate and rhythm. Large gallop. Lungs: Clear to auscultation anteriorly. Equal excursion with poor inspiratory effort. She remains on room air. Abdomen: Large, soft, nontender. Positive bowel sounds. Genitourinary: Not inspected. Minimal void with dialysis assist. Extremities: Continues with 1+ to both upper and lower extremity edema. Integumentary: The patient has different stages of scarring with stages of healing to her face and to her upper arms and hands. Neurological: As above. ASSESSMENT AND PLAN: 1. Chronic kidney disease stage 5D. The patient had her routine dialysis treatment yesterday for 3.9 liters. She still appears to have fluid volume overload. We will evaluate the patient to determine if we will place her on dialysis again today. 2. Electrolytes and acid-base balance. The patient is currently on her insulin drip. She continues on D10 at 50 mL an hour. Acetone is currently pending. 3. Acid-base balance. This is stable, with closing anion gap down to 16. 4. Leukocytosis. The patient remains on Zosyn and vancomycin, renally dosed. White count is now down to 10.55. Blood cultures show no growth after 48 hours. I would like to thank you for allowing us to follow with this patient. Dictated by MANNY Hatch for Hardy Kay MD Face to face encounter, data reviewed, discussed with Gerri Fitzgerald on 09/04/19. I agree with the above assessment and plan of care. cc: MANNY Hatch MD [facility]
[2019-09-04] MEDS: KEPPRA PO SCH (20:03)
[2019-09-04] MEDS: D50W SYRINGE IV PRN (21:33)
[2019-09-05] MEDS: MYCAMINE 100 MG in NS 100 ML IV SCH (03:35)
[2019-09-05] MEDS: PROTONIX IV SCH (06:04)
[2019-09-05] MEDS: D50W SYRINGE IV PRN ×2 (06:11→16:14)
[2019-09-05] MEDS ORDERED: NS 2,000 ML MISC PRN (06:40)
[2019-09-05] MEDS ORDERED: TIGHT: 0.2 ML/HR FOR DIALYSIS MISC PRN (06:40)
[2019-09-05] MEDS ORDERED: HEPARIN IV PRN (06:40)
[2019-09-05 06:49] LABS: CALCIUM 7.7 mg/dL (8.8-10.2); POTASSIUM 5.4 mmol/L (3.5-5.1)
[2019-09-05] MEDS: DILANTIN PO SCH ×3 (08:39→16:16)
[2019-09-05] MEDS: HUMALOG SUBQ SCH ×3 (08:39→16:32)
[2019-09-05] MEDS: KEPPRA PO SCH ×2 (08:39→20:29)
[2019-09-05] MEDS: LANTUS INSULIN SUBQ SCH (08:40)
[2019-09-05] MEDS: ZOFRAN IV PRN ×3 (08:49→22:52)
[2019-09-05] MEDS: TYLENOL PO PRN ×3 (08:49→22:52)
--- NOTE | 2019-09-05 13:10 | NEPHROLOGY PROGRESS NOTE ---
DATE: 09/05/2019 TIME SEEN: 0640. SUBJECTIVE: Ms. Chaparro is resting quietly in bed. Her head of the bed is just slightly elevated. She has had her NG tube removed. She states that her side is hurting on the left. Otherwise, breathing has improved, and she has no complaints of further discomfort. LABORATORY DATA: Sodium is 134, potassium is 5.4, chloride is 97, CO2 is 20, her BUN is 48, her creatinine is 4, she has a glucose of 70. Her anion gap is 17. Her acetone is negative. Her calcium is 7.7. Previous hemoglobin 9.9. Blood cultures show positive yeast. OBJECTIVE: Vital Signs: Temperature 97.4 degrees, blood pressure 119/93, heart rate 80, respirations 12. She is on room air. Last recorded saturation 100%. She has had 649 in. She has only had 25 mL out with need for dialysis today. General: This is a 39-year-old, female. She is resting quietly in bed. She appears chronically ill, though no acute distress. Skin: Warm and dry. HEENT: Normocephalic, atraumatic. Conjunctiva is pale. She has LUDWIG. Mucous membranes are dry. Neck: Supple. Trachea midline. She has no JVD. Cardiovascular: Regular rate and rhythm. She has a large gallop. Lungs: Clear to auscultation bilaterally. Equal excursion. She is on room air this a.m. Abdomen: Round, soft, nontender. Positive bowel sounds. Genitourinary: Not inspected. Minimal void with dialysis assist. Extremities: The patient has trace to 1+ lower extremity edema. No clubbing or cyanosis. Fistula to the right upper arm. Integumentary: The patient has an excoriation to her left crease of her mouth. This is cracked and dry with different stages of healing of ecchymosis and scarring to her facial area. Neurological: As above, more awake and alert. ASSESSMENT AND PLAN: 1. Chronic kidney disease stage 5D. The patient is due for dialysis today. We will place her on a 2-potassium bath. She is to dialyze for 3.5 hours. We will pull her to her outpatient dry weight. 2. Electrolytes and acid-base balance with correction on dialysis with a closing anion gap. Acetone is negative. 3. Anemia. This remains low, but stable. 4. Diabetic ketoacidosis. The patient is currently off of her insulin. She is off of her D10. Her blood sugars are at 70 at this time. Followed by the primary care. I would like to thank you for allowing us to follow with this patient. Dictated by MANNY Hatch for Hardy Kay MD Face to face encounter, data reviewed, discussed with Gerri Fitzgerald on 09/05/19. I agree with the above assessment and plan of care. cc: MANNY Hatch MD [facility]
--- NOTE | 2019-09-05 18:01 | PROGRESS NOTE ---
DATE: 09/05/2019 SUBJECTIVE: This morning, Ms. Chaparro refers to be doing well. She was actually requesting to advance her diet from full liquid diet to something stronger. She denies any new complaints. OBJECTIVE: Vital signs: Blood pressure is 134/92, pulse of 82 respiration is 12. Temperature is 97.1 degrees. General: Ms. Chaparro is a 89-year-old female. She was in bed, no distress. HEENT: Mucosa is pink and moist. Anicteric. Acyanotic. Neck: Supple. Chest: Good air entry bilaterally. No crepitations. No rhonchi. There is a left subclavian central line catheter noted. Cardiovascular: Cardiovascular regular rate and rhythm. There is a 2/6 TR murmur. No gallops. Abdomen: Soft, nontender. Bowel sounds present. Extremities: No pedal edema. Central Nervous Systems: Patient is awake, alert, oriented. There is an AV dialysis fistula on the right arm. LABORATORY DATA: Has been reviewed. Chemistry is consistent with renal failure. Glucose this morning was 189. ASSESSMENT: 1. Altered mental status on presentation secondary to metabolic encephalopathy. Resolved. 2. Diabetes mellitus type 1, complicated with diabetic ketoacidosis on presentation. Improved. 3. Extreme brittle diabetes mellitus management. The patient is on low-dose insulin regimen for today. 4. Endstage renal disease on hemodialysis via arteriovenous fistula of the right arm noted. 5. Coffee-grounds emesis. Patient continues to be on proton pump inhibitors. Hemoglobin and hematocrit is stable. 6. Uncontrolled hypertension on admission. Improved. 7. Systolic dysfunction with ejection fraction of 30% on recent echo associated with severe tricuspid regurgitation and biventricular failure. 8. History of seizure disorder. 9. Fungemia. 1 of 2 blood cultures has come back positive for yeast. The patient was started on micafungin last night. We have consulted Infectious Disease. PLAN: In general, I think Ms. Tong is doing well. She is going to be transferred from the ICU to the medical floor. We have discontinued all her other antibiotics. She was started on micafungin last night because of possible fungemia. We will get Infectious Disease to see her as well. cc: Cesar Berger MD [facility]TDD
--- NOTE | 2019-09-05 22:42 | INFECTIOUS DISEASE CONSULT REP ---
DATE: 09/05/2019 CONCLUSION: Ms. Chaparro was admitted with DKA 3 days ago and today has grown a yeast in 1/2 of the blood cultures. The source of the fungemia, we would speculate is from the multiple sores that she has on her face and extremities due to scratching. RECOMMENDATIONS: We agree with the use of micafungin as ordered, 100 mg IV daily. Due to the presence of a fungemia, she will need her central line removed. She does have an external jugular in place on the right, which can be used for IV access at this point. I have called down to the microbiology lab and asked them to identify the organism. I have also tried to swab the areas of sores on her face; however, these are very dry at this time. DISCUSSION: Ms. Chaparro is a chronically ill, young lady who has had multiple admissions to the hospital and also lives in long-term care facility. She has recently recovered from a bout of pneumonia, which is most likely secondary to rib fractures. Today she is complaining of some pain in her chest on the left side. It is noted that the patient had a central line put in on admission to the hospital this time, and it was about the same time that the blood was drawn that showed the yeast in her blood, so the central line is not the cause of the fungemia. PAST MEDICAL HISTORY: Includes brittle diabetes mellitus type 1, end-stage renal disease with hemodialysis, congestive heart failure, gastroesophageal reflux disease, hypertension, cerebrovascular accident, seizure disorder, gastric ulcers and skin cancer. PAST SURGICAL HISTORY: Includes right arm AV fistula insertion, excision and cryotherapy for skin cancers, corneal implants, previous peritoneal dialysis catheters, previous tunneled dialysis catheters, cardiac stents, and cholecystectomy. REVIEW OF SYSTEMS: Review of systems is difficult due to patient's lethargy and complaints of pain when questions were asked. INFECTIOUS DISEASE: Positive for urinary tract infection, bacteremia, pneumonia, and abdominal infections related to her peritoneal dialysis catheter. SOCIAL HISTORY: The patient lives at [facility] and denies any alcohol, tobacco or illicit drugs. FAMILY HISTORY: Positive for hypertension and diabetes. ALLERGIES: Adhesive tape. MEDICATIONS AT THE [facility]: Include aspirin, Norvasc, Dilantin, Lidocaine patch, Ultram, Keppra, Phenergan and Lantus insulin. LABORATORY AND X-RAY DATA: No CBC today but yesterday her white count was 10.55, hemoglobin 9.9, platelet count 162,000. Today her creatinine is 4 with a GFR of 15. Yesterday her total bilirubin was 0.37, AST 64, ALT 50, alkaline phosphatase 344. Of the 2 blood cultures drawn, 1 shows no growth after 48 hours and the other shows yeast that is present and has yet to be identified. A check for C difficile toxin was negative. Chest x-ray on admission showed cardiomegaly and pulmonary vascularity with right upper lobe lingula and left lower lobe atelectasis. A CT of her head showed no intracranial disease. PHYSICAL EXAMINATION: Vital Signs: Temperature is 97.1 degrees, pulse rate 84, respiratory rate 12, blood pressure 126/87. O2 saturation is 100% on room air. General: This is a chronically ill-appearing young female. She is lying in the bed currently having some chest discomfort, which she states has been there since she came into the hospital. HEENT: Oral mucous membranes are pink and moist. Conjunctivae are pale. She has multiple scars and lesions noted to her face all of which are dry with an erythematous area on her nose and a cracked eschar to the left side of her mouth. Neck: has an external jugular line on the right without any edema, erythema or drainage to the site. There is a left subclavian central line, which also shows no edema, erythema or drainage. Skin: Generally warm and dry. Multiple areas to her extremities, which are dry lesions, which she states are from scratching. Cardiovascular: Heart rate and rhythm are regular. Normal sinus rhythm on the monitor. There is an AV fistula in place to the right upper arm, with a good thrill and bruit noted. Respiratory: Lung sounds are clear to auscultation bilaterally. No work of breathing is noted, but she does have pain with deep inspiration. There is a history of rib fractures on the left. Abdomen: Soft, flat and nontender. Bowel sounds are active. Neurologic: She is drowsy and lethargic but arousable and oriented. Thank you for allowing us to see Ms. Chaparro. Dictated by MANNY Carreno for Raad Reese MD cc: MD GARY Charles
[2019-09-06] MEDS: MYCAMINE 100 MG in NS 100 ML IV SCH (02:59)
[2019-09-06] MEDS: TYLENOL PO PRN (05:34)
[2019-09-06] MEDS: PROTONIX IV SCH (06:19)
[2019-09-06 06:21] LABS: ALBUMIN 3.2 g/dL (3.5-5.0); PHOSPHORUS 2.8 mg/dL (2.7-4.5); POTASSIUM 5.6 mmol/L (3.5-5.1)
[2019-09-06] MEDS: KEPPRA PO SCH ×2 (08:12→21:36)
[2019-09-06] MEDS: DILANTIN PO SCH ×3 (08:13→16:55)
[2019-09-06] MEDS: HUMALOG SUBQ SCH ×3 (08:14→16:55)
[2019-09-06] MEDS: LANTUS INSULIN SUBQ SCH (08:16)
[2019-09-06] MEDS ORDERED: G.I. COCKTAIL PO ONE (10:37)
[2019-09-06] MEDS: LIDODERM TOP SCH (11:10)
[2019-09-06] MEDS: ZOFRAN IV SCH ×2 (11:34→16:55)
--- NOTE | 2019-09-06 14:52 | PROVIDER PROGRESS NOTE ---
Progress Note Subjective: Complains of burning in her epigastric region that is unrelenting. She voices a decrease in appetite for such regions. Objective: temperature 97.5, pulse 85, respiration 16, blood pressure 161/95, O2 sat 100% on room air. General: chronically ill appearing -[place] female lying in bed moaning. HEENT: normocephalic, atraumatic, pupils equal and reactive. Mucous membranes dry. Trachea midline. Skin: Warm and dry. Area to face and arms that are healing wounds. Neck: Supple, unable to assess JVD. Cardiovascular: S1S2, regular rate and rhythm. No gallops noted. Crescendo- decrescendo systolic murmur heard best at the base grade 3/6. Respiratory: clear with equal air entry bilaterally Abdomen: soft, nondistended. Bowel sounds present. Tenderness to left upper quadrant that she voices has been unchanged since last admission. : not inspected Extremities: No edema, clubbing, or cyanosis. Neurological: alert and oriented to person, place, and time. Labs: sodium 138, potassium 5.6, chloride 97, carbon dioxide 26, BUN 32, creatinine 3.0, intake 415, output 4000. Impression: Chronic kidney disease stage 5D. She had her routine hemodialysis treatment yesterday with a 4L ultrafiltration. She does not appear to be volume overloaded today so we will plan on her routine hemodialysis treatment tomorrow. GI discomfort. GI cocktail ordered. Blood pressure. Varies. In pain right now. Fluid volume. Euvolemic on exam. Anemia. Stable on last labs. Electrolytes and acid base balance. Mild Hyperkalemia. Observe. Nutrition. Adequate. Ambulation. PT/OT needed. Medication review.
--- NOTE | 2019-09-06 18:45 | PROGRESS NOTE ---
DATE: 09/06/2019 SUBJECTIVE: This morning Ms. Chaparro refers to be doing well. She was actually sitting up in a chair and was having her meals. OBJECTIVE: Vital signs: Blood pressure 165/92, pulse of 95, respirations 16, temperature 97.6 degrees. Ms Chaparro was saturating 100% on room air. General: Ms. Chaparro is a 39-year-old female. She was sitting up in a chair. No distress. HEENT: Mucosa is pink and moist. Anicteric. Acyanotic. Neck: Supple. Chest: Good air entry bilaterally. There were no crepitations. No rhonchi. Cardiovascular: Regular rate and rhythm. There was a 2/6 TR murmur. No gallops. Abdomen: Soft, nontender. Bowel sounds present. Extremities: No pedal edema. 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 The patient's left subclavian central line has been removed. She still has a right external jugular line and she has a right arm AV fistula for dialysis. LABORATORY DATA: Chemistry is consistent with renal failure. Glucose is 277. ASSESSMENT: 1. Altered mental status on presentation, secondary to metabolic encephalopathy, resolved. 2. Diabetes mellitus type 1, complicated with diabetic ketoacidosis on presentation, improved. 3. Brittle diabetes. The patient is on low dose insulin regimen. We will continue to titrate this up and be extremely careful with hypoglycemia. 4. Endstage renal disease, on hemodialysis via arteriovenous fistula on the right arm. 5. Coffee-ground emesis during the hospital course, resolved. The patient is on proton pump inhibitor. Hemoglobin and hematocrit stable. 6. Uncontrolled hypertension. We will continue to titrate her medications. 7. Systolic dysfunctions with ejection fraction of 30% on recent echocardiogram, associated with severe tricuspid regurgitation and biventricular failure noted. 8. History of seizure disorder. Patient is on Keppra and Dilantin. 9. Fungemia. The patient has been started on micafungin. Infectious Disease has been consulted. The central line has been removed. We are going to repeat the blood culture for tomorrow. Disposition. Ms. Chaparro will be going back to [facility]. Will be pending the repeat culture result and then the final antimicrobial therapy from Infectious Disease. cc: MD GARY Milligan
[2019-09-06] MEDS: D50W SYRINGE IV PRN (20:20)
[2019-09-06] MEDS: G.I. COCKTAIL PO PRN (21:37)
[2019-09-07] MEDS: MYCAMINE 100 MG in NS 100 ML IV SCH (01:51)
[2019-09-07] MEDS: TYLENOL PO PRN ×2 (02:00→16:40)
[2019-09-07 05:29] LABS: BASO# 0.01 X1000 (0.0-0.2); BASO% 0.1 % (0.0-0.8); EOS# 0.04 X1000 (0.0-0.7); EOS% 0.6 % (0.0-10.0); HEMATOCRIT 28.7 % (37.0-47.0); HEMOGLOBIN 9.3 g/dL (12.0-16.0); IMM GRAN# 0.02 X1000 (0.0-0.04); IMM GRAN% 0.3 % (0.0-0.5); LYMPH% 9.8 % (20.5-51.1); MCH 29.2 PG (27-31); MCHC 32.4 g/dL (33-37); MONO# 0.79 X1000 (0.11-0.59); NEUT# 5.59 X1000 (1.4-6.5); NEUT% 78.2 % (42.2-75.2); PLT 184 X1000 (130-400); RBC 3.19 XMIL (4.2-5.4); RDW 17.2 % (11.5-14.5); WBC 7.15 X1000 (4.8-10.8)
[2019-09-07] MEDS: ZOFRAN IV SCH ×3 (06:02→16:40)
[2019-09-07] MEDS: PROTONIX IV SCH (06:02)
[2019-09-07 06:05] LABS: ALBUMIN 3.1 g/dL (3.5-5.0); CALCIUM 7.9 mg/dL (8.8-10.2); CREATININE 3.8 mg/dL (0.5-0.9); PHOSPHORUS 2.2 mg/dL (2.7-4.5)
[2019-09-07 06:15] LABS: POTASSIUM 6.3 mmol/L (3.5-5.1)
[2019-09-07] MEDS ORDERED: HEPARIN IV PRN (06:30)
[2019-09-07] MEDS ORDERED: NS 2,000 ML MISC PRN (06:30)
[2019-09-07] MEDS ORDERED: TIGHT: 0.2 ML/HR FOR DIALYSIS MISC PRN (06:30)
[2019-09-07] MEDS: HUMALOG SUBQ SCH ×3 (10:39→16:11)
[2019-09-07] MEDS: DILANTIN PO SCH ×3 (12:00→16:41)
[2019-09-07] MEDS: LANTUS INSULIN SUBQ SCH (12:27)
[2019-09-07] MEDS: G.I. COCKTAIL PO PRN ×2 (12:27→22:36)
[2019-09-07] MEDS: LIDODERM TOP SCH (12:29)
[2019-09-07] MEDS: KEPPRA PO SCH ×2 (12:29→21:30)
--- NOTE | 2019-09-07 12:46 | INFECTIOUS DISEASE PROGRESS NO ---
DATE: 09/07/2019 PRESENT ILLNESS: The patient has a fungemia which I think most likely originated from one of the cutaneous wound which the patient has from scratching herself. I do not think it came from the patient's right arm AV fistula which she uses for dialysis. MEDICATIONS: Currently, the patient is on micafungin pending the identification of the fungal organism. PHYSICAL EXAMINATION: Temperature Is 98 degrees, pulse 92, respirations 18, blood pressure 141/90. General: This is an ill-appearing young female. She is in no acute distress. Head/eyes/ears/nose/throat: She can hear my spoken words and see near objects. She does not have any white patches in her mouth. Neck: No meningismus. She does have a right-sided jugular vein catheter in place. Lungs: Clear to auscultation. Cardiovascular: Regular heart rate. Extremities: The patient has a functional AV fistula in the right arm. Integument: The patient has multiple scars and multiple wounds which have occurred from scratching her skin. There is not any a wound now that is active. Most all of the wounds have scarring and are not draining any purulence. Neurologic: The patient is arousable. She was sleeping in bed. She can move her extremities. There is no tremor. LAB AND X-RAY: The patient's CBC for today shows a white count of 7150, hemoglobin 9.3, platelet count 184,000. Creatinine is 3.8. GFR is 16. Alkaline phosphatase is 344. Stool for Clostridium difficile toxin is negative. As mentioned above, the patient's blood cultures are positive for yeast. ASSESSMENT AND PLAN: I am going to continue with micafungin pending identification of the fungal organism. I have ordered for today to repeat the blood cultures. I told the patient she should stop scratching herself to prevent getting these wounds which become infected and in the case of her fungemia, may have been the source of it. COMORBIDITIES: They include the following. Diabetes mellitus, end-stage renal disease with patient on dialysis, congestive heart failure, gastroesophageal reflux disease, cerebral vascular accident, seizure disorder, gastric ulcers, skin cancer. cc: Raad Reese MD
--- NOTE | 2019-09-07 15:52 | PROGRESS NOTE ---
DATE: 09/07/2019 SUBJECTIVE: This morning Ms. Chaparro refers to be doing well. Denies any new complaints. OBJECTIVE: Vital Signs: Ms. Chaparro is a 39-year-old female. She is in bed. No distress. Mucosa is pink and moist. Anicteric. Acyanotic. Neck: Supple. Chest: Clear to auscultation. No crepitations. No rhonchi. Cardiovascular: Regular rate and rhythm. There is a 2/6 TR murmur. Abdomen: Soft, nontender. Bowel sounds present. Extremities: No pedal edema. Distal pulses are present. Central Nervous System: Patient is awake, alert, oriented. LABORATORY DATA: CBC is unremarkable except for normocytic anemia. Chemistry is also reviewed. Potassium was 6.3, glucose was 324. ASSESSMENT: 1. Altered mental status on presentation secondary to metabolic encephalopathy. 2. Diabetes mellitus type 1, severe uncontrolled diabetes mellitus type 1 with presenting A1c of 11.3, complicated with diabetic ketoacidosis on presentation. Diabetic ketoacidosis , resolved. We will continue with insulin tight management. 3. Endstage renal disease on hemodialysis via arteriovenous fistula on the right. 4. Coffee-grounds emesis during the hospital course. Patient is on proton pump inhibitors. 5. Hypertension. We will continue with medications. 6. Systolic dysfunction with ejection fraction of 30% associated with severe tricuspid regurgitation and biventricular failure. 7. History of seizure disorder. Patient is on Keppra and Dilantin. 8. Fungemia. Patient is on micafungin. Repeat blood cultures done today. We are going to continue to follow. DISPOSITION: Ms. Chaparro will be discharged to [facility] when she is medically stable. cc: Cesar Berger MD
--- NOTE | 2019-09-07 16:29 | NEPHROLOGY PROGRESS NOTE ---
DATE: 09/07/2019 SUBJECTIVE: She is on dialysis currently. No vomiting this morning, but she still has abdominal discomfort. OBJECTIVE: Vital Signs: Blood pressure 156/91, heart rate 93, respirations 14, afebrile. General: No acute distress. Skin: Warm and dry. Neck: Neck veins are distended. Heart: Regular with murmur and a gallop. Lungs: Equal. No crackles. Abdomen: Soft, minimally tender. Bowel sounds present. Extremities: Trace edema. No clubbing or cyanosis. IMPRESSION: 1. Chronic kidney disease 5D. 2. Moderate hyperkalemia (potassium 6.3). 3. Acid base in target. 4. She is receiving her routine dialysis today using a 2-potassium bath for 3-1/2 hours with a goal of 3 liters ultrafiltration as tolerated. Otherwise, continue supportive care. 5. Hemoglobin is below target, but stable. Observe. cc: Hardy Kay MD
[2019-09-08] MEDS: MYCAMINE 100 MG in NS 100 ML IV SCH (03:26)
[2019-09-08] MEDS: TYLENOL PO PRN (04:17)
[2019-09-08] MEDS: PROTONIX IV SCH (05:59)
[2019-09-08] MEDS: SODIUM CHLORIDE 0.9% INJ SCH (05:59)
[2019-09-08] MEDS: ZOFRAN IV SCH ×3 (06:00→17:01)
[2019-09-08 06:18] LABS: ALBUMIN 3.1 g/dL (3.5-5.0); CALCIUM 7.9 mg/dL (8.8-10.2); CREATININE 3.1 mg/dL (0.5-0.9); PHOSPHORUS 2.2 mg/dL (2.7-4.5)
[2019-09-08] MEDS ORDERED: NS 2,000 ML MISC PRN (08:23)
[2019-09-08] MEDS ORDERED: HEPARIN IV PRN (08:23)
[2019-09-08] MEDS ORDERED: TIGHT: 0.2 ML/HR FOR DIALYSIS MISC PRN (08:23)
[2019-09-08] MEDS: LIDODERM TOP SCH (08:59)
[2019-09-08] MEDS: HUMALOG SUBQ SCH ×3 (09:01→16:54)
[2019-09-08] MEDS: LANTUS INSULIN SUBQ SCH (09:01)
[2019-09-08] MEDS: KEPPRA PO SCH ×2 (13:22→21:00)
[2019-09-08] MEDS: DILANTIN PO SCH ×3 (13:22→17:01)
[2019-09-08] MEDS: NORVASC PO SCH (13:23)
[2019-09-08] MEDS: G.I. COCKTAIL PO PRN (13:27)
--- NOTE | 2019-09-08 14:22 | PROGRESS NOTE ---
DATE: 09/08/2019 SUBJECTIVE: This morning Ms. Chaparro refers to be doing a lot better. She said she has not been given enough meals and sometime she feels hungry in the middle of the night and she has been eating some crackles in the middle of the night that is why her glucose seems to be uncontrolled. However, the whole of yesterday, her glucose were remarkably in the higher numbers. OBJECTIVE: Vital signs: Blood pressure 184/99, pulse of 90, respirations 14, temperature 97.5 degrees. General: Ms. Chaparro is a 39-year-old female. She is in bed, no distress. HEENT: Mucosa is pink and moist. Anicteric. Acyanotic. Neck: Supple. Chest: Good air entry bilaterally. There was no crepitations no rhonchi. Cardiovascular: Regular rate and rhythm. There is a 2/6 TR murmur. Abdomen: Soft, nontender. Bowel sounds present. Extremities: No pedal edema. 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 LABORATORY DATA: Chemistry shows consistent with end-stage renal disease with a potassium of 6.0 early this morning. BUN 34 and creatinine is 3.1. Glucose was 399. ASSESSMENT: 1. Altered mental status on presentation secondary to metabolic encephalopathy, resolved. 2. Diabetes mellitus type 1 with severe hyperglycemia with a presenting A1c of 11.3, complicated with diabetic ketoacidosis on presentation, improving. Patient is on insulin regimen. She does have a very brittle type diabetes, so we are going to be very slowly going up on her insulin demands. 3. Endstage renal disease on hemodialysis via AV fistula on the right. Patient gets dialysis on Tuesdays, , and Saturdays. She is seen today is dialysis unit. 4. Coffee-grounds emesis during the hospital course resolved. Patient is on proton pump inhibitor. 5. Uncontrol hypertension. We will titrate her blood pressure medications. 6. Systolic dysfunction with ejection fraction of 30% associated with severe tricuspid regurgitation and biventricular failure on echo. Patient is clinically stable. 7. History of seizure disorder. Patient is on Keppra and Dilantin. 8. Candidemia. Blood culture has come back positive for Latasha glabrata. The patient is on micafungin. A repeat blood culture is still pending. A central line has been removed. cc: Cesar Berger MD
--- NOTE | 2019-09-08 21:30 | NEPHROLOGY PROGRESS NOTE ---
DATE: 09/08/2019 SUBJECTIVE: She is having trouble regulating her blood sugar is complaining about the staff's management of her diet and her insulin. Otherwise no new complaints. OBJECTIVE: Vital signs: Blood pressure 184/99, heart rate 98, respirations 14, afebrile. General: No acute distress. Skin: Warm and dry. Conjunctivae are pink. Neck: Neck veins are not appreciated. Heart: Regular with a murmur. Lungs: Equal. No crackles. Abdomen: Soft, nontender. Extremities: Minimal edema. No clubbing or cyanosis. IMPRESSION: Chronic kidney disease. PLAN: Dialysis today. Her potassium is high so we are having to repeat her treatment. Other electrolytes, acid base, volume status are in target. Blood pressure is above target but. I will not make changes today. Blood pressures ranged widely over the last few days. cc: Hardy Kay MD
[2019-09-09] MEDS: MYCAMINE 100 MG in NS 100 ML IV SCH (02:23)
[2019-09-09] MEDS: TYLENOL PO PRN ×2 (03:18→22:43)
[2019-09-09] MEDS: G.I. COCKTAIL PO PRN (05:08)
[2019-09-09] MEDS: PROTONIX IV SCH (05:59)
[2019-09-09] MEDS: ZOFRAN IV SCH ×3 (05:59→17:11)
[2019-09-09] MEDS: SODIUM CHLORIDE 0.9% INJ SCH (05:59)
[2019-09-09 06:27] LABS: ALBUMIN 2.8 g/dL (3.5-5.0); CALCIUM 7.8 mg/dL (8.8-10.2); CREATININE 2.6 mg/dL (0.5-0.9); PHOSPHORUS 1.5 mg/dL (2.7-4.5)
[2019-09-09] MEDS: DILANTIN PO SCH ×3 (09:46→17:11)
[2019-09-09] MEDS: NORVASC PO SCH (09:46)
[2019-09-09] MEDS: HUMALOG SUBQ SCH ×4 (09:47→17:11)
[2019-09-09] MEDS: LIDODERM TOP SCH (09:47)
[2019-09-09] MEDS: LANTUS INSULIN SUBQ SCH (09:47)
[2019-09-09] MEDS: KEPPRA PO SCH ×3 (09:47→22:19)
--- NOTE | 2019-09-09 11:41 | PROGRESS NOTE ---
DATE: 09/09/2019 SUBJECTIVE: This morning, Ms. Chaparro referred to be doing well. Did not have any new complaints. OBJECTIVE: Vital Signs: Blood pressure is 172/96, pulse of 80, respirations are 17, temperature is 98.7 degrees. General Examination: Ms. Chaparro is a 39-year-old, -[place] female. She is in bed. No distress. HEENT: Mucosa is pink and moist. Anicteric. Acyanotic. Neck: Supple. Chest: Good air entry bilaterally. There were no crepitations. No rhonchi. Cardiovascular: Regular rate and rhythm. There is a mild 2/6 TR murmur. GI: Abdomen is soft, nontender. Bowel sounds are present. There is no hepatosplenomegaly. Extremities: No pedal edema. Distal pulses are present. 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 The patient has a right arm AV fistula. Laboratory Data: Chemistry has been reviewed. Creatinine is 2.6 due to renal disease. Glucose of 309. So far, repeat blood cultures have come back 48 hours negative. The patient is currently on micafungin. ASSESSMENT: 1. Altered mental status on presentation secondary to metabolic encephalopathy, resolved. 2. Uncontrolled diabetes mellitus type 1 with presenting A1c of 11.3, complicated with diabetic ketoacidosis. Diabetic ketoacidosis has resolved. We will continue titrating the patient's insulin to meet a better glycemic control. Unfortunately, Ms. Chaparro is extremely noncompliant. She has been eating almost around the clock and because of that, her glucose has been very difficult to be managed. She is an extremely brittle diabetic. She gets either end of the complications easily, into diabetic ketoacidosis or extremely hypoglycemic. 3. End-stage renal disease, on hemodialysis via arteriovenous fistula in the right are on Tuesdays, , and Saturdays. 4. Coffee-grounds emesis during the hospital course, resolved. Patient is on a proton pump inhibitor. 5. Uncontrolled hypertension. We will continue titrating her blood pressure medications. 6. Systolic dysfunction with ejection fraction of 30% associated with severe tricuspid regurgitation and biventricular failure on echocardiogram. 7. History of seizure disorder. Patient is on Keppra and Dilantin. No seizures during the hospital course. 8. Candidemia. Patient is on micafungin. Repeat blood cultures have been negative. The left supraclavicular central line has been removed. PLAN: In general, I think Ms. Chaparro is doing well. There is a potential to get her discharged tomorrow. We will wait on final arrangements for her antifungal treatment from ID and then go from there. cc: Cesar Berger MD
[2019-09-09] MEDS: D50W SYRINGE IV PRN ×2 (19:50→22:37)
[2019-09-10] MEDS: MYCAMINE 100 MG in NS 100 ML IV SCH (02:07)
[2019-09-10] MEDS: TYLENOL PO PRN (04:21)
[2019-09-10 05:57] LABS: ALBUMIN 3.1 g/dL (3.5-5.0); CALCIUM 7.9 mg/dL (8.8-10.2); CREATININE 3.6 mg/dL (0.5-0.9); POTASSIUM 5.8 mmol/L (3.5-5.1)
[2019-09-10] MEDS ORDERED: SODIUM PHOSPHATE IV ONE (06:07)
[2019-09-10] MEDS ORDERED: NS IV ONE (06:07)
[2019-09-10] MEDS: PROTONIX IV SCH (06:41)
[2019-09-10] MEDS: SODIUM CHLORIDE 0.9% INJ SCH (06:41)
[2019-09-10] MEDS: ZOFRAN IV SCH ×3 (06:41→20:17)
--- NOTE | 2019-09-10 07:48 | INFECTIOUS DISEASE PROGRESS NO ---
DATE: 09/10/2019 PRESENT ILLNESS: The patient has Latasha glabrata fungemia. MEDICATIONS: The patient is on micafungin. This is day 3 of treatment with micafungin with the first day being the first time that the repeat blood cultures are sterile. PHYSICAL EXAMINATION: Vital Signs: Temperature is 98.3 degrees, pulse 92, respirations 17, blood pressure 151/88. General: This is an ill-appearing young female. She is in no acute distress. Head/eyes/ears/nose/throat: She can hear my spoken words and see near objects. I did not notice any white coating on her tongue. Neck: The patient has a right-sided internal jugular venous catheter in place. The site is not bleeding or purulent. Lungs: Clear to auscultation. Cardiovascular: Regular heart rate. Abdomen: Soft and nontender. Extremities: The patient has a functional AV fistula in the right arm. The site is not bleeding and there is no purulent drainage coming from it. Integument: Patient has multiple scars from where she scratches herself. I did not find any wound that looked like it was active. Most all of them had an eschar covering them and they were dry. Neurologic: The patient is arousable. She can move her extremities. There is no tremor. LAB AND X-RAY: The creatinine is 3.6. GFR is 17. CBC was ordered for today, but it is not yet back. The patient's blood cultures turn negative on September 07 of this year. There is no new radiographic study for today. ASSESSMENT AND PLAN: The patient has candidemia caused by Latasha glabrata. I am going to treat her with micafungin. She has had 3 days worth of treatment. Hopefully she will be discharged today. I have filled out a pink order sheet for the patient to get micafungin 100 mg IV daily for a total of 11 doses. Also, I have ordered that every Tuesday the patient is to have a CBC and a CMP drawn. Also, I have ordered that after the last dose of micafungin, the patient's internal jugular venous catheter is to be removed. COMORBIDITIES: Diabetes mellitus, end-stage renal disease. The patient is on hemodialysis. Congestive heart failure, gastroesophageal reflux disease, cerebrovascular accident, seizure disorder, gastric ulcers, skin cancer. cc: Raad Reese MD
[2019-09-10] MEDS: HUMALOG SUBQ SCH ×3 (08:33→22:02)
[2019-09-10] MEDS: LANTUS INSULIN SUBQ SCH (08:36)
[2019-09-10] MEDS: DILANTIN PO SCH ×3 (08:37→21:52)
[2019-09-10] MEDS: NORVASC PO SCH (08:37)
[2019-09-10] MEDS: KEPPRA PO SCH ×2 (08:37→21:52)
[2019-09-10] MEDS: LIDODERM TOP SCH (08:38)
[2019-09-10 13:48] LABS: BASO# 0.04 X1000 (0.0-0.2); BASO% 0.6 % (0.0-0.8); EOS# 0.17 X1000 (0.0-0.7); EOS% 2.7 % (0.0-10.0); HEMATOCRIT 30.5 % (37.0-47.0); HEMOGLOBIN 9.7 g/dL (12.0-16.0); IMM GRAN# 0.06 X1000 (0.0-0.04); LYMPH# 0.93 X1000 (1.2-3.4); LYMPH% 14.9 % (20.5-51.1); MCH 29.4 PG (27-31); MCHC 31.8 g/dL (33-37); MCV 92.4 FL (81-99); MONO# 1.51 X1000 (0.11-0.59); MONO% 24.2 % (1.7-9.3); MPV 10.7 FL (7.4-10.4); NEUT# 3.52 X1000 (1.4-6.5); NEUT% 56.6 % (42.2-75.2); PLT 408 X1000 (130-400); RDW 17.5 % (11.5-14.5); WBC 6.23 X1000 (4.8-10.8)
[2019-09-10 14:14] LABS: EOS 2 % (1-10); LYMPHS 14 % (21-51); MONO 20 % (1-9); SEGS 63 % (42-75)
[2019-09-10 14:15] LABS: HYPOCHROM 1+; POIKILOCYTOSIS 1+
[2019-09-10] MEDS ORDERED: HEPARIN IV PRN (14:52)
[2019-09-10] MEDS ORDERED: NS 2,000 ML MISC PRN (14:52)
--- NOTE | 2019-09-10 15:06 | PROVIDER PROGRESS NOTE ---
Progress Note Subjective: Pt was sitting up in bed in no acute distress when I entered the room. Within 10 seconds of seeing me the patient started jerking and rolling her eyes. It was made known to me by staff that she did this last night as well and when staff left the room, she would resume normal behaviors. By the time I completed my exam, she was speaking to me normal and was not having extra movements. I waited outside her room to be sure that the jerking was over. I observed her sitting up in no distress drinking her milk and finishing her bonnie akfast without difficulty. Objective: temperature 98.3, pulse 92, respirations 17, blood pressure 151/88, O2 sat 100% on room air General: chronically ill appearing -[place] female lying in bed moaning. HEENT: normocephalic, atraumatic, pupils equal and reactive. Mucous membranes dry. Trachea midline. Skin: Warm and dry. Area to face and arms that are healing wounds. Neck: Supple, unable to assess JVD. Cardiovascular: S1S2, regular rate and rhythm. No gallops noted. Crescendo- decrescendo systolic murmur heard best at the base grade 3/6. Respiratory: clear with equal air entry bilaterally Abdomen: soft, nontender, nondistended. Bowel sounds present. : not inspected Extremities: No edema, clubbing, or cyanosis. Neurological: alert and oriented to person, place, and time. Labs: sodium 136, potassium 5.8, chloride 99, carbon dioxide 27, BUN 42, creatinine 3.6. Intake 1168 ouput 0 Impression: Chronic kidney disease stage 5D. She will have her routine hemodialysis treatment today. Blood pressure. Varies. Observe for now. Fluid volume. Euvolemic on exam. Anemia. Stable on last labs. Electrolytes and acid base balance. Mild Hyperkalemia. Corrected with hemodialysis today. Nutrition. Adequate. Ambulation. PT ordered. Medication review.
--- NOTE | 2019-09-10 15:58 | DISCHARGE SUMMARY ---
ADMISSION DATE: 09/02/2019 DISCHARGE DATE: 09/10/2019 DISPOSITION: Back to [facility]. FOLLOW-UP: 1. Dr. David Xie. 2. Dr. Reese. 3. Dr. Kay. CONSULTATIONS DURING THIS ADMISSION: 1. Nephrology was consulted, patient was seen by Dr. Kay. 2. ID was consulted, patient was seen by Dr. Reese. 3. Surgery was consulted. Patient will be seen by Dr. Acosta. INVASIVE PROCEDURES DONE DURING THIS ADMISSION: A central line placement has been requested for long-term antimicrobial therapy. IMAGING STUDIES OF SIGNIFICANCE: 1. Chest x-ray initially showed patchy atelectasis and cardiomegaly. 2. A CT scan of the head showed no evidence of acute intracranial pathology. 3. A repeat chest x-ray showed placement of a central line. 4. A KUB shows NG tube was in stomach. ADMISSION DIAGNOSIS: Diabetic ketoacidosis. DIAGNOSES AT THE TIME OF DISCHARGE: 1. Altered mental status on presentation secondary to metabolic encephalopathy from diabetes mellitus. 2. Uncontrolled diabetes mellitus type 1 with presenting A1c of 11.3, complicated with diabetic ketoacidosis; diabetic ketoacidosis is resolved. The patient is currently on insulin regimen. 3. Endstage renal disease on hemodialysis via arteriovenous fistula on the right. I understand she gets dialysis Mondays, Wednesdays and Fridays. 4. Coffee-ground emesis during the hospital course, resolved. The patient is on proton pump inhibitors. 5. Uncontrolled hypertension. Patient is on blood pressure medicines. 6. Systolic dysfunction with ejection fraction of 30% associated with severe tricuspid regurgitation and biventricular failure on echocardiogram. 7. History of seizure disorder. Patient is on Keppra and Dilantin. 8. Candidemia. Patient is on micafungin for a total of 14 days. She is left with 11 days as per ID. PRESENTING COMPLAINT: Altered mental status. HISTORY OF PRESENTING COMPLAINT: Ms. Chaparro is a 39-year-old female who is in [facility] doing rehab, has had multiple admissions to the hospital either because of DKA or severe hypoglycemia. Came in this time because of altered mental status. She was found to have a glucose sticks of over 600. Laboratory data revealed she was in DKA, so she was admitted to the medical ICU for critical care management. HOSPITAL COURSE: Ms. Chaparro was admitted to the ICU. DKA protocol was initiated. She did respond very well during the hospital course and eventually got transferred from the ICU to the medical floor. She was started on an insulin regimen and continued to be titrated. Unfortunately, Ms. Chaparro has been eating just around the clock. She does not really pay attention to the times that she eats. She does not give me the impression that she is worried about her disease process. I have had a lengthy conversation with her this morning and I did let her know that she also needs to be responsible for her medical issues and that she needs to be extremely cognisant with the fact that diabetes management has a lot to do with her diet and that if she is not going to be compliant with her diet, it is almost going to be impossible to control her diabetes because she has a very brittle diabetes that goes to the extremes of complications either DKA or hypoglycemia given her even seizures. In any case, I think Ms. Chaparro is now medically stable to be discharged. She does have candidemia and a repeat blood culture has come back negative. We are getting surgery to put in a line. Infectious Disease has now documented that she will need 11 more days of micafungin for a total of 14 days. DISCHARGE INSTRUCTIONS: All the discharge instructions have been discussed with Ms. Chaparro. She voiced understanding. I am not 100% convinced how much she understands. TIME SPENT FOR DISCHARGE: 40 minutes. cc: MD David Milligan MD Gregory S. Cheatham, MD Leroy F. Harris, MD
[2019-09-11] MEDS: MYCAMINE 100 MG in NS 100 ML IV SCH (02:10)
[2019-09-11] MEDS: D50W SYRINGE IV PRN (03:28)
[2019-09-11] MEDS: PROTONIX IV SCH (06:10)
[2019-09-11] MEDS: ZOFRAN IV SCH (06:10)
--- NOTE | 2019-09-11 07:24 | Diag Imaging Result Doc PS360 ---
CHEST-PORTABLE - 09/11/2019 INDICATION: IJ Placement COMPARISON: 09/02/2019 FINDINGS: There is been placement of a right internal jugular central line in good position. The catheter tip is at the lower SVC. The left central line has been removed. There is multifocal linear atelectasis in the left upper lobe and left midlung. No dense consolidations. No pneumothorax or pleural effusion. There is mild cardiomegaly. IMPRESSION: No complication. Electronically signed by Rito Gatica 09/11/2019 7:21 AM
[2019-09-11] MEDS: KEPPRA PO SCH (08:44)
[2019-09-11] MEDS: LANTUS INSULIN SUBQ SCH (08:44)
[2019-09-11] MEDS: LIDODERM TOP SCH (08:44)
[2019-09-11] MEDS: NORVASC PO SCH (08:44)
[2019-09-11] MEDS: DILANTIN PO SCH (08:44)
[2019-09-11] MEDS: HUMALOG SUBQ SCH (08:51)
[2019-09-11 09:31] VITALS: BP 151/96
--- NOTE | 2019-09-11 10:04 | INFECTIOUS DISEASE PROGRESS NO ---
DATE: 09/11/2019 PRESENT ILLNESS: The patient has a Latasha glabrata fungemia. MEDICATIONS: This is the 4th day of treatment with micafungin for the patient's fungemia. PHYSICAL EXAMINATION: Vital Signs: Temperature is 97.7 degrees, pulse 95, respirations 16, blood pressure 174/100. General: This is an ill-appearing young female. She is in no acute distress. Head/eyes/ears/nose/throat: She can hear my spoken words and see near objects. She does not have any white patches in her mouth. There is no drainage from her nose or ears. Neck: The patient has a right-sided jugular vein catheter in place. Lungs: Clear to auscultation. Cardiovascular: Heart rate is regular. Abdomen: Soft and nontender. Extremities: The patient has a functional AV fistula in her right arm. The site is not tender or purulent. Neurologic: The patient is arousable. She can move her extremities. She does not have a tremor. LAB AND X-RAY: There is no new lab or radiographic study for today. ASSESSMENT AND PLAN: The patient has Latasha glabrata fungemia. The patient will be treated with micafungin. This is day 4 and treatment of the patient will require 10 more days of treatment. COMORBIDITIES: Diabetes mellitus, end-stage renal disease, hemodialysis, congestive heart failure, gastroesophageal reflux disease, cerebrovascular accident, seizure disorder, gastric ulcers, skin cancer. cc: Raad Reese MD
--- NOTE | 2019-09-11 11:32 | OPERATIVE NOTE ---
PROCEDURE DATE: 09/11/2019 PREOPERATIVE DIAGNOSIS: Fungemia. POSTOPERATIVE DIAGNOSIS: Fungemia. PROCEDURE PERFORMED: Insertion of central venous catheter with ultrasound guidance. SURGEON: Ezequiel Acosta MD. ESTIMATED BLOOD LOSS: Scant. COMPLICATIONS: None apparent. FINDINGS: Patent right internal jugular vein. TECHNIQUE: The patient was kept supine in her hospital bed. Her right neck was prepped and draped in the usual sterile fashion. One percent lidocaine was used to anesthetize the skin over the internal jugular vein, which was seen with ultrasound. The vein was then accessed under ultrasound guidance with one stick, drawing back dark nonpulsatile blood. The wire passed through the needle easily. The track was dilated. A triple-lumen central venous catheter was passed over the wire, into the vein via the Seldinger technique. The wire was removed. All ports ronald back blood and were flushed with saline. The port was anchored to the skin with silk suture. A sterile dressing was applied. There were no apparent complications. cc: Ezequiel Acosta MD
== END 2019-09-11 09:47 | DRG 637 ==
LOC: SUPCPDRO → ED 11:41 → SUATTDRO 14:26 → ICU 14:26 → 1N 09-06 01:41
PROVIDERS: ATTEND Internal Medicine

== ENCOUNTER 2019-09-20 16:18 | Inpatient (IN) ==
--- NOTE | 2019-09-20 17:51 | PROVIDER DOCUMENTATION ---
HPI-Neurological Disorder - General Chief Complaint: Syncope Stated Complaint: SYNCOPE Time Seen by Provider: 09/20/19 17:41 Source: patient Allergies/Adverse Reactions: Patient Allergies Allergy/AdvReac Type Severity Reaction Status Date / Time adhesive Allergy RASH Verified 09/20/19 18:48 Home Medications: Home Medication List Medication Instructions Recorded Confirmed Last Taken Type Amlodipine [Norvasc] 10 mg PO DAILY #60 tab 08/13/19 09/02/19 09/01/19 Rx Aspirin 81 mg PO DAILY chewtab 08/13/19 09/02/19 09/01/19 Rx Lidocaine 5% Patch [Lidoderm] 1 ea TOP DAILY #30 patch 08/23/19 09/02/19 09/02/19 Rx Phenytoin [Dilantin] 100 mg PO TID #90 cap 08/23/19 09/02/19 09/01/19 Rx Levetiracetam [Keppra] 250 mg PO BID #60 tab 08/27/19 09/02/19 09/01/19 Rx Acetaminophen [Tylenol] 650 mg PO Q4H PRN PRN tab 09/10/19 Unknown Rx Insulin Glargine [Lantus Insulin] 12 unit SUBQ DAILY unit 09/10/19 Unknown Rx Insulin Lispro 5 unit SQ TID #1 vial 09/10/19 Unknown Rx - History of Present Illness-Neuro Nature of Presenting Problem: Patient with a h/o dm type 1, seizures CHF ESRD on HD, was dialysed yesterday and due for dialysis tomorrow. Patient was transported from [facility] by EMS to the ED for mental status changes. She reports that she had dizziness while in the kitchen, reported this to her therapist who later informed her that she had passed out. EMS had her blood sugar in the 300,s She was recently discharged from the hospital for DKA and presently receives antifungi med via a right IJ Character of Altered Mental Status: reports: decreased responsiveness Any recent trauma/injury?: reports: none Character of Deficits: reports: altered sensation New weakness or altered sensation location:: reports: none Cognitive Baseline: alert, oriented x3 Associated Symptoms: reports: loss of consciousness Review of Systems - Adult - REVIEW OF SYSTEMS - ADULT Constitutional: reports: no symptoms reported Eyes: reports: no symptoms reported Ears, Nose, Mouth & Throat: reports: no symptoms reported Cardiovascular: reports: no symptoms reported Respiratory: reports: no symptoms reported Gastrointestinal: reports: no symptoms reported Genitourinary: reports: no symptoms reported Musculoskeletal: reports: no symptoms reported Integumentary: reports: no symptoms reported Neurological: reports: see HPI Psychiatric: reports: no symptoms reported Endocrine: reports: no symptoms reported Hematologic/Lymphatic: reports: no symptoms reported Allergic/Immunologic: reports: no symptoms reported All Other Systems: Reviewed and Negative Past History - Adult - PAST MEDICAL HISTORY-ADULT Review of Records: reports: Nursing Assessment Review, Medications Reviewed, Social history reviewed & non-contributory. Major Childhood Illnesses: reports: denies history Cardiovascular: reports: CHF, HTN, hyperlipidemia, other (cardiomyopathy) Respiratory: reports: denies history Gastrointestinal: reports: GERD, other (gastroparesis, eroding esophagus) Obstetrical/Gynecological: reports: denies history Genitourinary: reports: dialysis (MWF), kidney disease Musculoskeletal: reports: denies history Neurological: reports: CVA, Seizures/Epilepsy Psychiatric: reports: anxiety Endocrine/Immune: reports: anemia, Diabetes Other Conditions: reports: cataract/glaucoma, other (VRE) - PRIOR SURGERIES/PROCEDURES Surgical/Procedure History: reports: colonoscopy, cholecystectomy, indwelling device (dialysis access), other (cataract removal; cornea transplant; lap; feeding tube) - PRIOR HOSPITALIZATIONS Prior Hospitalizations: reports: for other non-related - IMMUNIZATION STATUS Childhood Immunizations: See Nurse Assessment Flu Vaccine: See Nurse Assessment - FAMILY HISTORY Family History: reviewed, not pertinent Physical Exam- Neurological - Physical Exam-Neuro Initial Vital Signs Reviewed: Yes General Appearance: appears well, alert, no apparent distress Eye Exam: bilateral eye: PERRL, EOMI HENMT: normocephalic/atraumatic, moist mucous membranes, normal ENT inspection, pharynx normal, other (right IJ noted) Head Injury: no evidence of injury Neck: non-tender, full range of motion, supple Respiratory: chest non-tender, lungs clear, normal breath sounds Cardiovascular: regular rate, rhythm Extremity: normal range of motion, non-tender, other (intact AV fistular noted on the right arm) 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 aging echymosis noted on the abdomen) Psych/Mental Status: oriented x 3 - Glascow Coma Scale Best Eye Response: (4) open spontaneously Best Verbal Response: (5) oriented Best Motor Response: (6) obeys commands Progress - PLAN OF CARE/RESULTS Progress/Plan/Lab Results: Vital Signs - 8 hr 09/20/19 16:25 09/20/19 18:02 09/20/19 18:38 Temperature 98.3 F Pulse Rate 97 H 93 H Respiratory Rate 18 3 L Blood Pressure 171/100 178/112 180/111 O2 Sat by Pulse Oximetry 100 98 96 09/20/19 19:00 09/20/19 19:30 09/20/19 19:38 Temperature Pulse Rate 94 H 96 H 96 H Respiratory Rate 2 L 1 L 14 Blood Pressure 173/113 189/111 182/106 O2 Sat by Pulse Oximetry 97 98 97 09/20/19 20:05 09/20/19 20:12 09/20/19 20:13 Temperature Pulse Rate 99 H 98 H 98 H Respiratory Rate 20 16 16 Blood Pressure 188/119 193/116 O2 Sat by Pulse Oximetry 09/20/19 20:30 09/20/19 20:46 09/20/19 21:00 Temperature Pulse Rate 98 H 98 H 95 H Respiratory Rate 18 18 18 Blood Pressure 164/100 159/93 153/89 O2 Sat by Pulse Oximetry 100 100 09/20/19 21:15 09/20/19 21:30 Temperature Pulse Rate 94 H 99 H Respiratory Rate 16 21 Blood Pressure 145/90 174/111 O2 Sat by Pulse Oximetry 100 100 Laboratory Results - last 24 hr 09/20/19 09/20/19 09/20/19 18:00 18:12 18:20 WBC 5.65 RBC 3.03 L Hgb 8.9 L Hct 28.4 L MCV 93.7 MCH 29.4 MCHC 31.3 L RDW Std Deviation 17.9 H Plt Count 393 MPV 9.3 Immature Gran % (Auto) 0.0 Neut % (Auto) 67.3 Lymph % (Auto) 18.1 L Kimball % (Auto) 10.6 H Eos % (Auto) 1.2 Baso % (Auto) 2.8 H Immature Gran # (Auto) 0.00 Neut # (Auto) 3.80 Lymph # (Auto) 1.02 L Kimball # (Auto) 0.60 H Eos # (Auto) 0.07 Baso # (Auto) 0.16 PT INR PTT (Actin FS) Specimen Type MIXED ART/VENOUS Sample Site L RADIAL pH 7.42 pCO2 44 pO2 49 L* HCO3 27.6 H Base Excess 3.6 H Oxyhemoglobin 86.5 L* ABG O2 Sat (Calculated) 11.6 L ABG O2 Saturation 89.1 L ABG Carboxyhemoglobin 2.00 ABG Methemoglobin 0.9 Brent Test YES A-a O2 Difference 46.0 Total Hemoglobin 9.5 L Lactate 2.10 Blood Gas Modality ROOM AIR FiO2 % 21.0 Sodium Potassium Chloride Carbon Dioxide Anion Gap BUN Creatinine Estimated GFR/1.73 m2 BUN/Creatinine Ratio Glucose POC Glucose 477 H D Calculated Osmolality Calcium Total Bilirubin AST ALT Alkaline Phosphatase Creatine Kinase Troponin T High Sens Total Protein Albumin Globulin Albumin/Globulin Ratio Plasma Lactate Serum , Qual Acetone Level 09/20/19 09/20/19 09/20/19 18:20 18:20 18:20 WBC RBC Hgb Hct MCV MCH MCHC RDW Std Deviation Plt Count MPV Immature Gran % (Auto) Neut % (Auto) Lymph % (Auto) Kimball % (Auto) Eos % (Auto) Baso % (Auto) Immature Gran # (Auto) Neut # (Auto) Lymph # (Auto) Kimball # (Auto) Eos # (Auto) Baso # (Auto) PT 14.2 INR 1.08 PTT (Actin FS) 24.4 Specimen Type Sample Site pH pCO2 pO2 HCO3 Base Excess Oxyhemoglobin ABG O2 Sat (Calculated) ABG O2 Saturation ABG Carboxyhemoglobin ABG Methemoglobin Brent Test A-a O2 Difference Total Hemoglobin Lactate Blood Gas Modality FiO2 % Sodium 136 Potassium 4.3 Chloride 97 L Carbon Dioxide 27 Anion Gap 12 BUN 24 H Creatinine 2.4 H Estimated GFR/1.73 m2 27 BUN/Creatinine Ratio 10 Glucose 523 H* POC Glucose Calculated Osmolality 300 Calcium 8.5 L Total Bilirubin 0.32 AST 33 H ALT 25 Alkaline Phosphatase 355 H Creatine Kinase 33 Troponin T High Sens 80 H Total Protein 6.5 Albumin 3.3 L Globulin 3.2 Albumin/Globulin Ratio 1.0 Plasma Lactate Serum , Qual Acetone Level 09/20/19 09/20/19 09/20/19 18:20 18:20 18:20 WBC RBC Hgb Hct MCV MCH MCHC RDW Std Deviation Plt Count MPV Immature Gran % (Auto) Neut % (Auto) Lymph % (Auto) Kimball % (Auto) Eos % (Auto) Baso % (Auto) Immature Gran # (Auto) Neut # (Auto) Lymph # (Auto) Kimball # (Auto) Eos # (Auto) Baso # (Auto) PT INR PTT (Actin FS) Specimen Type Sample Site pH pCO2 pO2 HCO3 Base Excess Oxyhemoglobin ABG O2 Sat (Calculated) ABG O2 Saturation ABG Carboxyhemoglobin ABG Methemoglobin Brent Test A-a O2 Difference Total Hemoglobin Lactate Blood Gas Modality FiO2 % Sodium Potassium Chloride Carbon Dioxide Anion Gap BUN Creatinine Estimated GFR/1.73 m2 BUN/Creatinine Ratio Glucose POC Glucose Calculated Osmolality Calcium Total Bilirubin AST ALT Alkaline Phosphatase Creatine Kinase Troponin T High Sens Total Protein Albumin Globulin Albumin/Globulin Ratio Plasma Lactate 1.9 Serum , Qual NEGATIVE Acetone Level NEGATIVE 09/20/19 09/20/19 19:20 20:44 WBC RBC Hgb Hct MCV MCH MCHC RDW Std Deviation Plt Count MPV Immature Gran % (Auto) Neut % (Auto) Lymph % (Auto) Kimball % (Auto) Eos % (Auto) Baso % (Auto) Immature Gran # (Auto) Neut # (Auto) Lymph # (Auto) Kimball # (Auto) Eos # (Auto) Baso # (Auto) PT INR PTT (Actin FS) Specimen Type Sample Site pH pCO2 pO2 HCO3 Base Excess Oxyhemoglobin ABG O2 Sat (Calculated) ABG O2 Saturation ABG Carboxyhemoglobin ABG Methemoglobin Brent Test A-a O2 Difference Total Hemoglobin Lactate Blood Gas Modality FiO2 % Sodium Potassium Chloride Carbon Dioxide Anion Gap BUN Creatinine Estimated GFR/1.73 m2 BUN/Creatinine Ratio Glucose POC Glucose 500 H 423 H Calculated Osmolality Calcium Total Bilirubin AST ALT Alkaline Phosphatase Creatine Kinase Troponin T High Sens Total Protein Albumin Globulin Albumin/Globulin Ratio Plasma Lactate Serum , Qual Acetone Level Orders Category Date Time Status Admit - [facility] Routine AdmDCTranf 09/20/19 21:59 Active Bedrest [Activity Type] ORDERED Care 09/20/19 22:06 Active Cardiac Monitoring DIRECTED Care 09/20/19 17:34 Active Nursing [place] [place]RS[place] Communication Order] DIRECTED Care 09/20/19 19:06 Active Vital Signs Order Q 4-HR ASSESS Care 09/20/19 22:05 Active Renal Diet Diet 09/20/19 22:[address] HEAD W/O CONTRAST [CT] Stat Exams 09/20/19 17:34 Completed A1C HGB W EST AVG GLUCOSE [CHEM] Routine Lab 09/21/19 06:00 Ordered ABG [RESP] Routine Lab 09/20/19 18:12 Completed ACETONE SERUM [CHEM] Stat Lab 09/20/19 18:20 Completed CBC WITH ELECTRONIC DIFF [HEME] Stat Lab 09/20/19 18:20 Completed CK PROFILE [SP CHEM] Q8H Lab 09/20/19 22:15 Uncollected CK PROFILE [SP CHEM] Q8H Lab 09/21/19 06:15 Uncollected CK PROFILE [SP CHEM] Q8H Lab 09/21/19 14:15 Uncollected CK PROFILE [SP CHEM] Stat Lab 09/20/19 18:20 Completed COMPREHENSIVE METABOLIC PANEL [CHEM] Stat Lab 09/20/19 18:20 Completed LACTATE, PLASMA [CHEM] Stat Lab 09/20/19 18:20 Completed TEST-SERUM [PREG] Stat Lab 09/20/19 18:20 Completed PROTIME WITH INR [COAG] Stat Lab 09/20/19 18:20 Completed PTT [COAG] Stat Lab 09/20/19 18:20 Completed TROPONIN T HIGH SENSITIVITY Q8H Lab 09/20/19 22:15 Uncollected TROPONIN T HIGH SENSITIVITY Q8H Lab 09/21/19 06:15 Uncollected TROPONIN T HIGH SENSITIVITY Q8H Lab 09/21/19 14:15 Uncollected TROPONIN T HIGH SENSITIVITY Stat Lab 09/20/19 18:20 Completed URINALYSIS W/POSS RFLX CULT [URINALYSIS] Stat Lab 09/20/19 17:34 Uncollected URINE DRUG SCREEN Stat Lab 09/20/19 17:34 Uncollected Acetaminophen [Tylenol] Med 09/20/19 22:21 Discontinued 325 mg PO NOW ONE Hydralazine [Apresoline] Med 09/20/19 19:42 Discontinued 20 mg IV NOW ONE Insulin Human Regular [Humulin R] Med 09/20/19 18:33 Discontinued 10 unit IV NOW ONE Insulin Human Regular [Humulin R] Med 09/21/19 07:00 Active See Protocol SUBQ 0700,1100,1600,2100 EKG [EKG] Stat Ther 09/20/19 17:34 Ordered Transfer/Admit Order [TRANSFER] Routine Transfer 09/20/19 22:04 Ordered Result Diagrams: 09/20/19 18:20 09/20/19 18:20 - REASSESSMENT Reassessment #1 Time Reassessed: 19:39 Status: other (Patient is AAOx3, has elevated blood sugar. PH 7.44, low 02 and low spo2 by ABG but pt is sating in the 90,s on the monitor. she has been given 10units of insulin for elevated blood sugar, awaiting CT head, BP is still elevated, will give hydralazine) - EKG 1 Time of EKG reading by physician:: 18:10 EKG Read and Signed by:: Chase Rosario Rate: 94 Rhythm: nsr QRS: normal - CT/MRI 1 CT Study: Head Impression: See EMR Report (negative) - CONSULTS/PCP/HOSPITALIST Notification #1 *Consult/PCP/Hospitalist*: Dr Hussein Time Discussed: 20:00 Consult Disposition: Admit (for syncope vs seizure evaluation) Departure - Departure Date of Disposition Decision: 09/20/19 Time of Disposition Decision: 20:00 DIAGNOSIS: Syncope Qualifiers: Syncope type: unspecified Qualified Code(s): R55 - Syncope and collapse HTN (hypertension) Qualifiers: Hypertension type: essential hypertension Qualified Code(s): I10 - Essential (primary) hypertension Disposition: ADMITTED INPATIENT 09 Certified Medical Emergency: Emergent Condition: Fair Referrals and Follow-Ups: David Xie MD [Primary Care Provider] - - Critical Care Note This patient required my direct & personal management of CC.: No Attestation - Physician/ SARAI Attestation Patient care was provided by Advanced Practice Provider:: No The physician spent face to face time with patient:: Yes Advanced Practice Provider documentation review:: Supervising physician onsite and consulted in the evaluation and care of this patient. The physician did have a face to face encounter with the patient.
[2019-09-20 18:23] LABS: SAMPLE BLOOD
[2019-09-20 18:33] LABS: BASO# 0.16 X1000 (0.0-0.2); BASO% 2.8 % (0.0-0.8); EOS# 0.07 X1000 (0.0-0.7); EOS% 1.2 % (0.0-10.0); HEMATOCRIT 28.4 % (37.0-47.0); HEMOGLOBIN 8.9 g/dL (12.0-16.0); LYMPH# 1.02 X1000 (1.2-3.4); LYMPH% 18.1 % (20.5-51.1); MCH 29.4 PG (27-31); MCHC 31.3 g/dL (33-37); MCV 93.7 FL (81-99); MONO% 10.6 % (1.7-9.3); MPV 9.3 FL (7.4-10.4); NEUT% 67.3 % (42.2-75.2); PLT 393 X1000 (130-400); RBC 3.03 XMIL (4.2-5.4); RDW 17.9 % (11.5-14.5); WBC 5.65 X1000 (4.8-10.8)
[2019-09-20] MEDS ORDERED: HUMULIN R IV ONE (18:33)
[2019-09-20 18:35] LABS: PCO2(98.6) 44 mmHg (35-45); pH(98.6) 7.42 (7.35-7.45)
[2019-09-20 18:36] LABS: BE 3.6 mmoll (-3.0-3.0); HCO3-(ACT) 27.6 mmoll (20.0-26.0); METHB 0.9 % (0.0-1.5); PO2(98.6) 49 mmHg (60-100); SAO2 89.1 % (95.0-100.0); THB 9.5 g/dL (11.5-17.4)
[2019-09-20 18:37] LABS: ALLEN TEST YES; BLOOD TYPE MIXED ART/VENOUS; MODALITY ROOM AIR
[2019-09-20 18:38] LABS: O2HB 86.5 % (95.0-99.0)
[2019-09-20 18:40] LABS: INR 1.08; PROTIME 14.2 Seconds (11.0-16.0)
[2019-09-20 18:40] LABS: O2(CT) 11.6 mL/dL (15.0-23.0)
[2019-09-20 18:41] LABS: PTT 24.4 Seconds (22.3-41.8)
[2019-09-20 19:08] LABS: ALBUMIN 3.3 g/dL (3.5-5.0); CALCIUM 8.5 mg/dL (8.8-10.2); CREATININE 2.4 mg/dL (0.5-0.9); POTASSIUM 4.3 mmol/L (3.5-5.1); TOTAL BILIRUBIN 0.32 mg/dL (0.20-1.00); TOTAL PROTEIN 6.5 g/dL (6.3-8.3)
[2019-09-20] MEDS ORDERED: APRESOLINE IV ONE (19:42)
--- NOTE | 2019-09-20 20:14 | Diag Imaging Result Doc PS360 ---
EXAM: CT HEAD W/O CONTRAST HISTORY: stroke like symptoms TECHNIQUE: CT head without intravenous contrast COMPARISON: 09/02/2019 FINDINGS: No parenchymal hemorrhage. No epidural or subdural hematoma. No subarachnoid hemorrhage. 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 No mass identified on this noncontrasted exam. No hydrocephalus. No sinus opacification. IMPRESSION: No change. This exam was performed using automated exposure control, adjustment of mA or kV according to patient size, and/or use of iterative reconstruction technique. Electronically signed by Brayan Wooten 09/20/2019 8:11 PM
[2019-09-20] MEDS ORDERED: TYLENOL PO ONE (22:21)
[2019-09-20] MEDS ORDERED: MORPHINE IV ONE (22:54)
[2019-09-20] MEDS ORDERED: ZOFRAN IV ONE (22:54)
[2019-09-20] MEDS ORDERED: HALDOL IV ONE (22:54)
[2019-09-21] MEDS ORDERED: TYLENOL PO ONE (00:30)
[2019-09-21] MEDS ORDERED: HUMALOG SUBQ ONE (00:54)
[2019-09-21 05:51] LABS: HEMOGLOBIN A1C 10.1 % (4.8-6.0)
--- NOTE | 2019-09-21 06:52 | EKG Report ---
Test Performed on : 09/20/2019 6:09:28 PM Test Reason : syncope Blood Pressure : / mmHG Vent. Rate : 094 BPM Atrial Rate : 094 BPM P-R Int : 170 ms QRS Dur : 076 ms QT Int : 376 ms P-R-T Axes : 041 004 028 degrees QTc Int : 470 ms Normal sinus rhythm. Nonspecific T wave abnormality Prolonged QT Abnormal ECG When compared with ECG of 09-AUG-2019 20:45, (Unconfirmed) Vent. rate has increased BY 31 BPM Nonspecific T wave abnormality no longer evident in Inferior leads Nonspecific T wave abnormality, improved in Anterior leads Unconfirmed Result
[2019-09-21] MEDS ORDERED: PRILOSEC PO SCH (07:00)
[2019-09-21] MEDS ORDERED: HUMULIN R SUBQ SCH (07:00)
[2019-09-21] MEDS ORDERED: NS 2,000 ML MISC PRN (07:20)
[2019-09-21] MEDS ORDERED: HEPARIN IV PRN (07:20)
[2019-09-21] MEDS ORDERED: TIGHT: 0.2 ML/HR FOR DIALYSIS MISC PRN (07:20)
[2019-09-21] MEDS ORDERED: NORVASC PO SCH (09:00)
[2019-09-21] MEDS ORDERED: KEPPRA PO SCH (09:00)
[2019-09-21] MEDS ORDERED: ASPIRIN PO SCH (09:00)
--- NOTE | 2019-09-21 11:45 | HISTORY AND PHYSICAL ---
CHIEF COMPLAINT: Brief period of loss of consciousness. HISTORY OF PRESENT ILLNESS: Ms. Becky Chaparro is a 39-year-old female who has a history of multiple medical problems including diabetes mellitus type 1, hypertension, gastroparesis, hyperlipidemia, anemia, end-stage renal disease, peripheral neuropathy, recent history of candidemia. She is currently a resident of [facility]. The patient indicates that while she was getting physical therapy she felt dizzy and subsequently passed out. It is not well known how long she was out. However the event was noticed by physical therapist and was noted to be brief. The patient did not have any tongue biting, no urinary or fecal incontinence. The patient was brought to the hospital. She was found to have a raised blood sugar level of about 523. Anion gap was 12. CO2 level was 27. She did have a CT scan of the brain done which was unremarkable for any acute findings. The patient has now been admitted to the floor now for further management. PAST MEDICAL HISTORY: Diabetes mellitus type 1, hypertension, gastroparesis, hyperlipidemia, end- stage renal disease, gastroesophageal reflux disease, peptic ulcer disease, peripheral neuropathy recent history of candidemia which was treated with Micafungin. SOCIAL HISTORY: No history of cigarette smoking. No alcohol or drug use. ALLERGIES: Allergic to adhesive tape. PAST SURGICAL HISTORY: She has had AV graft placement, cholecystectomy, PEG tube placement. She has had peritoneal dialysis. Cyst removal from the forehead and also cataract extraction. MEDICATIONS: 1. Acetaminophen taken as directed. 2. Lantus insulin. 3. Insulin lispro. 4. Lidocaine 5% patch. 5. Amlodipine 5 mg p.o. 6. Aspirin 81 mg p.o. daily. 7. Keppra 250 mg as directed. 8. Dilantin 100 mg p.o. as directed. REVIEW OF SYSTEMS: Constitutional: No fever. 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 Eyes: She has blurred vision. Cardiovascular: No chest pain. Respiratory: No cough. GI: No nausea, vomiting, diarrhea, or abdominal pains. ENT: No sinus problem or hearing loss. : No dysuria. Dermatology: She does have skin lesions. Hematology: No bleeding problems. Musculoskeletal: She has joint pains. Endocrine: No thyroid disease but her diabetes. Psychiatry: She has anxiety. ANXIETY/IMMUNOLOGY: No symptoms suggestive of allergic rhinitis. PHYSICAL EXAMINATION: VITAL SIGNS ARE FOLLOWS: Temperature 98.3 degrees, pulse is 97, respirations 18, blood pressure is 171/100, oxygen saturation 100%. HEENT: Atraumatic normocephalic. She is anicteric. No oral lesions noted. NECK: No lymphadenopathy or thyromegaly. CARDIOVASCULAR: S1, S2. RESPIRATORY SYSTEM: Has evidence of good air entry bilaterally. ABDOMEN: Soft, nontender. No masses felt. EXTREMITIES: Has edema in both lower extremities. CENTRAL NERVOUS SYSTEM: No obvious focal deficit noted. SKIN: She does have skin lesions on her face and extremities with signs of healing/resolution. LABORATORY DATA: WBC is 5.61, hematocrit is 28.4 with a platelet count of 393,000. INR is 1.08. ABG 7.42/44/49/80/89.1. Chemistry: Sodium is 136, potassium 4.3, chloride 97, bicarb is 27, BUN is 24, creatinine is 2.4, glucose is 523. AST is 33 ALT is 25. Alkaline phosphatase 355. Troponin is 78. Hemoglobin A1c level is 10.1. Acetone level is negative. Head CT negative. ASSESSMENT AND PLAN: 1. Syncope. Place patient on telemetry as well as seizure precaution. Obtain an MRI of the brain without contrast, along with an EEG. Carotid Doppler study as well as a 2D echo of the heart. Consult with Cardiology as well as Neurology. 2. Diabetes mellitus. Optimize blood sugar control. Maintain patient on sliding scale insulin. Monitor blood sugar levels. Hemoglobin A1c level is noted to be elevated at 10.1. 3. End-stage renal disease. Consult Nephrology for hemodialysis while in the hospital. 4. Seizure disorder. Maintain patient on seizure precaution. Continue antiepileptic agents. 5. Hypertension. Optimize blood pressure control. 6. Gastroparesis. Stable, antiemetics as needed and prokinetic agent if needed and patient is able to tolerate. 7. Gastroesophageal reflux disease. Maintain patient on proton pump inhibitor. 8. Peripheral neuropathy. Maintain patient on Neurontin. 9. Anemia most likely of chronic disease. Follow up on patient's hemoglobin, hematocrit. 10. Chronic systolic heart failure with severe tricuspid regurgitation as well as biventricular failure. Hemodialysis to address any issues of volume overload. Consult with Cardiology. 11. Elevated troponin. Place patient on telemetry. Follow up on serial cardiac enzymes. Cardiology consult. 12. Deep vein thrombosis prophylaxis. Sequential compression devices. 13. Gastrointestinal prophylaxis. Proton pump inhibitor. 14. Recent history of candidemia. Obtain 2 sets of blood cultures. cc: Jorden Obrien MD
[2019-09-21] MEDS: HUMULIN R SUBQ SCH ×2 (12:00→16:15)
[2019-09-21] MEDS ORDERED: ZOSYN 2.25 GM in NS 50 ML IV ONE (13:55)
[2019-09-21] MEDS ORDERED: MYCAMINE 100 MG in NS 100 ML IV SCH (14:00)
[2019-09-21] MEDS: DILANTIN PO SCH ×2 (14:23→15:46)
[2019-09-21 14:33] VITALS: BP 153/94
--- NOTE | 2019-09-21 14:40 | DISCHARGE SUMMARY ---
ADMISSION DATE: 09/20/2019 DISCHARGE DATE: 09/21/2019 DISPOSITION: Back to [facility]. CONSULTATION DURING THIS ADMISSION: Nephrology was consulted; patient was seen by Dr. Kay. ADMISSION DIAGNOSES: 1. Syncope. 2. Diabetes mellitus. 3. Seizure disorder. 4. Hypertension. 5. Gastroparesis. DIAGNOSES AT THE TIME OF DISCHARGE: 1. Transient episode of loss of consciousness. According to Ms. Chaparro, she think she just over exerted herself at the rehab and got tired. However, she says she did not remember, which gives an impression of possible syncope versus a seizure. Ms. Chaparro is already on antiseizure medications. She has been observed 24 hours in the hospital. She has not had any more episodes. We think she will be okay to go back. 2. Uncontrolled diabetes mellitus type 1 with extremely elevated blood glucose on presentation. However, patient was not in diabetic ketoacidosis at this time. 3. Endstage renal disease on hemodialysis via arteriovenous fistula. The patient gets dialysis Tuesday, Tuesday, Tuesday. He just got treatment today. 4. Hypertension. 5. Systolic dysfunction with ejection fraction of 30% associated with severe tricuspid regurgitation and biventricular failure on echocardiogram. 6. History of seizure disorder. The patient was observed. No episode of seizures. She is going back on Keppra and Dilantin. 7. Recently treated for candidemia. Patient was discharged on micafungin. Today os supposed to be her last dose. We will try and give it to her and take the central line catheter in the right neck before she goes. 8. Diabetic peripheral neuropathy. DISCHARGE MEDICATIONS: 1. Aspirin 81 mg p.o. daily. 2. Amlodipine 10 mg p.o. daily. 3. Dilantin 100 mg three times per day. 4. Keppra 250 b.i.d. 5. Lispro 5 units with meals. 6. Glargine 12 units subcutaneous daily. 7. Tylenol. 8. Gabapentin 100 mg p.o. at bedtime. PRESENTING COMPLAINT: There was a brief period of loss of consciousness. HISTORY OF PRESENTING COMPLAINT: Ms. Chaparro is a 39-year-old female with multiple comorbidities and frequent hospitalization, was just discharged from the hospital less than 10 days ago. Came back this time because she says she felt slightly dizzy with physical therapy and subsequently she thinks she might have passed out. Upon presenting to the emergency department, she was evaluated. For the most part, physical exam was unremarkable. However, her laboratory data showed a glucose level of 523. A CT scan of the brain did not show any acute intracranial abnormality. She was admitted for observation. This morning Ms. Chaparro refers to be doing well. She has not had any more loss of consciousness. No seizures. No new complaints. Vitals all seem to be under control. She just underwent dialysis. Her current vitals: Blood pressure is 128/81, pulse of 91, respiration is 14m temperature 97.9 degrees, the patient is saturating 100%. She is just eating her lunch. Clinically stable. No neuro deficit. We think she is stable to be discharged to continue with her care at the rehab. Ms. Chaparro will be given her last dose of micafungin hopefully before she goes, and we will be able to take the central line out. All the discharge recommendations and orders have been discussed with her. She voiced understanding. TIME SPENT FOR DISCHARGE: 35 minutes. cc: Cesar Berger MD
--- NOTE | 2019-09-21 20:07 | NEPHROLOGY CONSULTATION ---
DATE: 09/21/2019 REASON FOR CONSULTATION: ESRD. HISTORY OF PRESENT ILLNESS: Ms. Chaparro is a 39-year-old black female who is well known to us. She was in rehab yesterday and had a transient loss consciousness, and so she was sent to the emergency room. Otherwise, she states she has been doing well and had no new complaints to report, no nausea or vomiting, etc. Her evaluation in the emergency room included a CT of the head which was at baseline. Currently she feels well. PHYSICAL EXAMINATION: Vital Signs: Blood pressure 128/81, heart rate 91, respirations 14, afebrile. General: No acute distress. Skin: Warm and dry. Eyes: Conjunctivae are pink. Neck: Neck veins are distended. Heart: Regular with murmur and gallop. Lungs: Equal. No crackles. Abdomen: Soft. Bowel sounds present. Extremities: 1+ edema. No clubbing or cyanosis. IMPRESSION: Chronic kidney disease 5D. She will have her routine dialysis today. In fact, she is on treatment at this time. Tolerating well. I reviewed the data and discussed the case with Dr. Quansah. Kumar for discharge after treatment from my perspective. cc: Hardy Kay MD
--- NOTE | 2019-09-21 20:39 | NEUROLOGY CONSULTATION ---
DATE: 09/21/2019 HISTORY OF PRESENT ILLNESS: Ms Chaparro had another episode of altered awareness with question of seizure. She remembers being in physical therapy department and feeling dizzy and possibly lightheaded. There is then a gap in her memory for uncertain period of time, but she does recall sense of "waking up" still in the therapy department. There was no associated tongue biting, lip biting, incontinence. I do not have a firsthand witness account, but review of the recorded secondhand reports does not show report of any limb movement or other seizure- like activity. Ms. Chaparro told me that she feels well now. She believes that she felt better quicker after this episode than what she had noticed following seizures in the past. She believes she has not had a seizure in many months, maybe a year or longer. She takes medicine for seizure control. She cannot tell me the names of the medicines. She told me that she keeps up with medication herself, but I think that is not correct. The hospital chart indicates levetiracetam 250 mg b.i.d. and phenytoin 100 mg t.i.d. We have seen Ms. Chaparro in the past. I last saw her in 2017. At that point, levetiracetam dose was 750 mg b.i.d., increase transiently to 1000 mg b.i.d. and then was made 750 mg b.i.d. daily with an extra 250 mg dose following dialysis 3 days a week. At that point, she was also on oxcarbazepine 600 mg b.i.d. She appeared to be stable with that regimen, but was noncompliant and at subsequent office visit, when she could not name or provide a list of her medications, phenytoin was started. I am not certain the recorded admission seizure medicine doses are accurate. She presented this time with blood sugars over 500. Blood sugars are down in the 100s now. A1c 10.1%. Anemia. Phenytoin level was 2.4. CT without contrast this admission shows the right schizencephaly, which is chronic. There is no evidence of acute change. Systolic blood pressures were 170s-190s yesterday, 120s-170s today. PAST HISTORY: Remarkable for diabetes mellitus (type 1?), end-stage renal disease managed with hemodialysis, prior admissions for DKA. PHYSICAL EXAMINATION: Ms. Chaparro is awake, alert, pleasant, attentive. She named the hospital, identified the day of the week correctly and named the president. Remote memory is good. I did not examine her cognitive function further. I observed her chewing and swallowing without difficulty. Speech is not dysarthric. Language function is intact on brief bedside testing. Head and neck are unremarkable. No meningismus. Strength is normal in the limbs. She did well on [id number] testing bilaterally. She guards the left arm proximally, and she reports that is due to prior fracture with surgical management. I did not test her gait. Visual vail are full tested by confrontational finger counting. IMPRESSION: Recent episode of altered awareness, uncertain etiology. She may have had presyncopal symptoms. Features as reported do not suggest seizure as the most likely explanation for this episode. As above, I am not certain about her current seizure medication regimen, but in light of the history that she has been stable without seizures in recent months, I would continue that regimen. If there is uncertainty regarding the seizure medication regimen, I would resume prior doses phenytoin 300 mg daily and levetiracetam 750 mg b.i.d. with an extra 250 mg dose following each dialysis. Levels can be checked later if needed. Thanks for asking Neurology to see Ms. Chaparro. I will be glad to see her again, inpatient or outpatient, if needed. cc: MD GARY Flores III
[2019-09-21] MEDS ORDERED: NEURONTIN PO SCH (21:00)
--- NOTE | 2019-09-27 14:11 | Carotid Study ---
DATE: 09/21/2019 STUDY: Bilateral duplex and color flow imaging of the carotid arteries performed using the [employer] Vivid E9 ultrasound system with a 9 L-D transducer. REFERRING PHYSICIAN: Dr. Obrien. IDENTIFICATION: A 39-year-old female. CAR RIDER: Jack Stevens RVT. INDICATION: Syncope. FINDINGS: Velocity in cm/sec of both carotid systems were reviewed. There is forward flow in both the right and left vertebral arteries. The right ICA/CCA ratio is 0.84 corresponding to a percent stenosis of 0% to 39%. The left ICA/CCA ratio is 0.82 corresponding to a percent stenosis of 0% to 39%. INTERPRETATION: Normal bilateral carotid arterial study. cc: MD Jorden Oh MD
== END 2019-09-21 16:54 | DRG 312 ==
LOC: SUPCPDRO → ED 16:18 → 1N 23:00 → SUATTDRO 23:00
PROVIDERS: ATTEND Internal Medicine

== ENCOUNTER 2019-10-06 20:46 | Inpatient (IN) ==
[2019-10-06] MEDS ORDERED: HUMULIN R IV ONE (21:10)
[2019-10-06] MEDS ORDERED: D50W SYRINGE IV PRN (21:10)
[2019-10-06] MEDS ORDERED: NS 1,000 ML IV SCH (21:15)
[2019-10-06 21:38] LABS: ALLEN TEST YES; BE 2.6 mmoll (-3.0-3.0); BLOOD TYPE ARTERIAL; HCO3-(ACT) 26.9 mmoll (20.0-26.0); METHB 0.9 % (0.0-1.5); O2HB 94.4 % (95.0-99.0); PCO2(98.6) 45 mmHg (35-45); PO2(98.6) 76 mmHg (60-100); SAMPLE BLOOD; SAO2 97.7 % (95.0-100.0); THB 10.5 g/dL (11.5-17.4)
[2019-10-06 21:39] LABS: MODALITY ROOM AIR
--- NOTE | 2019-10-06 21:54 | PROVIDER DOCUMENTATION ---
HPI-General Adult - General Chief Complaint: DKA ALERT Stated Complaint: hyperglycemia Time Seen by Provider: 10/06/19 21:07 Source: patient Allergies/Adverse Reactions: Patient Allergies Allergy/AdvReac Type Severity Reaction Status Date / Time adhesive Allergy RASH Verified 09/20/19 18:48 Home Medications: Home Medication List Medication Instructions Recorded Confirmed Last Taken Type Amlodipine [Norvasc] 10 mg PO DAILY #60 tab 08/13/19 09/02/19 09/01/19 Rx Aspirin 81 mg PO DAILY chewtab 08/13/19 09/02/19 09/01/19 Rx Lidocaine 5% Patch [Lidoderm] 1 ea TOP DAILY #30 patch 08/23/19 09/02/19 09/02/19 Rx Phenytoin [Dilantin] 100 mg PO TID #90 cap 08/23/19 09/02/19 09/01/19 Rx Levetiracetam [Keppra] 250 mg PO BID #60 tab 08/27/19 09/02/19 09/01/19 Rx Acetaminophen [Tylenol] 650 mg PO Q4H PRN PRN tab 09/10/19 Unknown Rx Insulin Glargine [Lantus Insulin] 12 unit SUBQ DAILY unit 09/10/19 Unknown Rx Insulin Lispro 5 unit SQ TID #1 vial 09/10/19 Unknown Rx Gabapentin [Neurontin] 100 mg PO QHS #120 cap 09/21/19 Unknown Rx Past History - Adult - PAST MEDICAL HISTORY-ADULT Major Childhood Illnesses: reports: denies history Cardiovascular: reports: CHF, HTN, hyperlipidemia, other (cardiomyopathy) Respiratory: reports: denies history Gastrointestinal: reports: GERD, other (gastroparesis, eroding esophagus) Obstetrical/Gynecological: reports: denies history Genitourinary: reports: dialysis (MWF), kidney disease Musculoskeletal: reports: denies history Neurological: reports: CVA, Seizures/Epilepsy Psychiatric: reports: anxiety Endocrine/Immune: reports: anemia, Diabetes Other Conditions: reports: cataract/glaucoma, other (VRE) - PRIOR SURGERIES/PROCEDURES Surgical/Procedure History: reports: colonoscopy, cholecystectomy, indwelling device (dialysis access), other (cataract removal; cornea transplant; lap; feeding tube) - PRIOR HOSPITALIZATIONS Prior Hospitalizations: reports: for other non-related - IMMUNIZATION STATUS Childhood Immunizations: See Nurse Assessment Flu Vaccine: See Nurse Assessment - FAMILY HISTORY Family History: reviewed, not pertinent Progress - PLAN OF CARE/RESULTS Progress/Plan/Lab Results: Vital Signs - 8 hr 10/06/19 20:56 Temperature 97.6 F Pulse Rate 93 H Respiratory Rate 20 Blood Pressure 190/141 O2 Sat by Pulse Oximetry 100 Laboratory Results - last 24 hr 10/06/19 10/06/19 20:59 21:10 Specimen Type ARTERIAL Sample Site L RADIAL pH 7.40 pCO2 45 pO2 76 HCO3 26.9 H Base Excess 2.6 Oxyhemoglobin 94.4 L ABG O2 Sat (Calculated) 14.0 L ABG O2 Saturation 97.7 ABG Carboxyhemoglobin 2.40 ABG Methemoglobin 0.9 Brent Test YES A-a O2 Difference 17.0 Total Hemoglobin 10.5 L Lactate 2.00 Blood Gas Modality ROOM AIR FiO2 % 21.0 POC Glucose 500 H D Orders Category Date Time Status Cardiac Monitoring DIRECTED Care 10/06/19 21:10 Active ED: Urine Bedside NOW Care 10/06/19 21:10 Active FSBS/Accucheck Result Q15M Care 10/06/19 21:11 Active FSBS/Accucheck Result Q1H Care 10/06/19 21:10 Active Hypoglycemia/FSBS <50 or Range of 50-70 PRN Care 10/06/19 21:11 Active Notify Physician ORDERED Care 10/06/19 21:11 Active Saline Loc DIRECTED Care 10/06/19 21:11 Active Saline Loc NOW Care 10/06/19 21:10 Active Vital Signs Order Q1H Care 10/06/19 21:10 Active ABG [RESP] Routine Lab 10/06/19 21:10 Completed ACETONE SERUM [CHEM] Stat Lab 10/06/19 21:50 Ordered CBC WITH NO DIFF [HEME] Stat Lab 10/06/19 21:50 Ordered CK PROFILE [SP CHEM] Stat Lab 10/06/19 21:50 Ordered COMPREHENSIVE METABOLIC PANEL [CHEM] Stat Lab 10/06/19 21:50 Ordered LACTATE, PLASMA [CHEM] Stat Lab 10/06/19 21:51 Ordered MAGNESIUM [CHEM] Stat Lab 10/06/19 21:50 Ordered PHOSPHORUS [CHEM] Stat Lab 10/06/19 21:50 Ordered TROPONIN T HIGH SENSITIVITY Stat Lab 10/06/19 21:50 Ordered URINALYSIS [URINALYSIS] Stat Lab 10/06/19 21:10 Uncollected URINE DRUG SCREEN PL Stat Lab 10/06/19 21:10 Uncollected URINE DRUG SCREEN Stat Lab 10/06/19 21:10 Uncollected 0.9% Sodium Chloride Inj [Ns] 1,000 ml Med 10/06/19 21:15 Active IV 500 mls/hr Dextrose 50% Syringe [D50w Syringe] Med 10/06/19 21:10 Active 25 ml IV PRN PRN Dextrose 50% Syringe [D50w Syringe] Med 10/06/19 21:10 Active 50 ml IV PRN PRN Insulin Human Regular [Humulin R] Med 10/06/19 21:10 Discontinued 4.4 unit IV ONCE ONE Hypoglycemia Stat Oth 10/06/19 21:10 Ordered EKG [EKG] Stat Ther 10/06/19 21:10 Ordered Departure - Departure Referrals and Follow-Ups: Vicki Lee MD [Primary Care Provider] -
[2019-10-06 23:03] LABS: HEMATOCRIT 35.7 % (37.0-47.0); MCH 30.6 PG (27-31); MCHC 30.8 g/dL (33-37); MCV 99.4 FL (81-99); MPV 9.4 FL (7.4-10.4); RBC 3.59 XMIL (4.2-5.4); WBC 7.27 X1000 (4.8-10.8)
[2019-10-06] MEDS ORDERED: NS 1,000 ML IV ONE (23:23)
[2019-10-06 23:30] LABS: AGAP 13; ALB/GLOB RATIO 0.9; ALBUMIN 3.9 g/dL (3.5-5.0); ALKALINE PHOSPHATASE 717 U/L (32-104); BUN 35 mg/dL (8-22); CALCIUM 8.8 mg/dL (8.8-10.2); CHLORIDE 89 mmol/L (98-107); CK PROFILE 34 U/L (24-173); COSMO 288; CREATININE 2.8 mg/dL (0.5-0.9); ESTIMATED GFR 23; GOT 54 U/L (10-30); GPT 68 U/L (10-36); MAGNESIUM 2.8 mg/dL (1.5-2.7); POTASSIUM 4.8 mmol/L (3.5-5.1); SODIUM 128 mmol/L (136-145); TCO2 26 mmol/L (25-35); TOTAL BILIRUBIN 0.52 mg/dL (0.20-1.00); TOTAL PROTEIN 8.2 g/dL (6.3-8.3)
[2019-10-06] MEDS ORDERED: POTASSIUM CHLORIDE 30 MEQ in NS 1,000 ML IV ONE (23:30)
[2019-10-06 23:31] LABS: GLUCOSE 524 mg/dL (70-104)
[2019-10-06] MEDS ORDERED: HUMALOG IV ONE ×2 (23:32→23:38)
[2019-10-06 23:36] LABS: ACETONE SERUM NEGATIVE (NEGATIVE)
[2019-10-07 00:06] LABS: PHOSPHORUS 0.4 mg/dL (2.7-4.5)
[2019-10-07] MEDS ORDERED: NS 1,000 ML IV ONE (00:12)
[2019-10-07] MEDS ORDERED: KLOR-CON PO ONE (00:15)
[2019-10-07] MEDS ORDERED: NEUTRA-PHOS PO ONE ×2 (00:16→01:57)
--- NOTE | 2019-10-07 00:55 | PROVIDER DOCUMENTATION ---
This chart was entered by Roslyn Duque Scribe, acting as scribe for Jorge Branham DO. HPI-General Adult - General Chief Complaint: DKA ALERT Stated Complaint: hyperglycemia Time Seen by Provider: 10/06/19 21:07 Source: patient Allergies/Adverse Reactions: Patient Allergies Allergy/AdvReac Type Severity Reaction Status Date / Time adhesive Allergy RASH Verified 09/20/19 18:48 Home Medications: Home Medication List Medication Instructions Recorded Confirmed Last Taken Type Amlodipine [Norvasc] 10 mg PO DAILY #60 tab 08/13/19 09/02/19 09/01/19 Rx Aspirin 81 mg PO DAILY chewtab 08/13/19 09/02/19 09/01/19 Rx Lidocaine 5% Patch [Lidoderm] 1 ea TOP DAILY #30 patch 08/23/19 09/02/19 09/02/19 Rx Phenytoin [Dilantin] 100 mg PO TID #90 cap 08/23/19 09/02/19 09/01/19 Rx Levetiracetam [Keppra] 250 mg PO BID #60 tab 08/27/19 09/02/19 09/01/19 Rx Acetaminophen [Tylenol] 650 mg PO Q4H PRN PRN tab 09/10/19 Unknown Rx Insulin Glargine [Lantus Insulin] 12 unit SUBQ DAILY unit 09/10/19 Unknown Rx Insulin Lispro 5 unit SQ TID #1 vial 09/10/19 Unknown Rx Gabapentin [Neurontin] 100 mg PO QHS #120 cap 09/21/19 Unknown Rx Naph,Mb-Db/K pH,Mbdb [Phos-Nak 1 ea PO TID #21 powd.pack 10/07/19 Unknown Rx Packet] - History of Present Illness -Gen Adult Nature of Presenting Problems: pt is a 39 yr old female presenting via EMS from [facility] with complaint of elevated BGL. on arrival pt POC BGL <500. pt hx of poorly controlled T1D and ESRD. pt complains of abd pain and distention and shortness of breath. Location of Pain/Injury: reports: abdomen Pain Radiation: reports: no radiation Quality of Pain: reports: dull Severity: reports: mild Onset/Duration: reports: unsure Timing: reports: still present Context/Activities at Onset: reports: rest Modifying Factors: improves with: nothing Associated Symptoms: reports: seizure. denies: constipation, diarrhea, fever/chills, nausea, vomiting Similar Symptoms Previously?: No Recently seen or treated by another doctor?: No Review of Systems - Adult - REVIEW OF SYSTEMS - ADULT Constitutional: denies: chills, fever Eyes: reports: no symptoms reported Ears, Nose, Mouth & Throat: reports: no symptoms reported Cardiovascular: denies: chest pain, palpitations, syncope Respiratory: reports: shortness of breath. denies: cough Gastrointestinal: reports: abdominal pain. denies: diarrhea, nausea, vomiting Genitourinary: reports: no symptoms reported Musculoskeletal: reports: no symptoms reported Integumentary: reports: no symptoms reported Neurological: reports: no symptoms reported Psychiatric: reports: no symptoms reported Endocrine: reports: no symptoms reported Hematologic/Lymphatic: reports: no symptoms reported Allergic/Immunologic: reports: no symptoms reported All Other Systems: Reviewed and Negative Past History - Adult - PAST MEDICAL HISTORY-ADULT Review of Records: reports: Old Records Reviewed, Nursing Assessment Review, Medications Reviewed, Social history reviewed & non-contributory. Major Childhood Illnesses: reports: denies history Cardiovascular: reports: CHF, HTN, hyperlipidemia, other (cardiomyopathy) Respiratory: reports: denies history Gastrointestinal: reports: GERD, other (gastroparesis, eroding esophagus) Obstetrical/Gynecological: reports: denies history Genitourinary: reports: dialysis (MWF), kidney disease Musculoskeletal: reports: denies history Neurological: reports: CVA, Seizures/Epilepsy Psychiatric: reports: anxiety Endocrine/Immune: reports: anemia, Diabetes Other Conditions: reports: cataract/glaucoma, other (VRE) - PRIOR SURGERIES/PROCEDURES Surgical/Procedure History: reports: colonoscopy, cholecystectomy, indwelling device (dialysis access), other (cataract removal; cornea transplant; lap; feeding tube) - PRIOR HOSPITALIZATIONS Prior Hospitalizations: reports: for other non-related - IMMUNIZATION STATUS Childhood Immunizations: See Nurse Assessment Flu Vaccine: See Nurse Assessment - FAMILY HISTORY Family History: reviewed, not pertinent - SOCIAL HISTORY Living Situation: care facility Physical Exam-General - PHYSICAL EXAM-ADULT Initial Vital Signs Reviewed: Yes (hypertensive) - CONSTITUTIONAL General Appearance: alert, no apparent distress, cachetic - EYES Eyes: PERRL/EOMI - HEAD, EARS, NOSE, MOUTH & THROAT HENMT: normocephalic/atraumatic, moist mucous membranes, normal ENT inspection - NECK Neck: non-tender, full range of motion, supple, normal inspection - RESPIRATORY Respiratory: chest non-tender, lungs clear, normal breath sounds, no respiratory distress, no accessory muscle use - CARDIOVASCULAR Cardiovascular: normal peripheral pulses, regular rate, rhythm, systolic murmur (grade 3 non radiating systolic ejection murmur, most heard at base) - GASTROINTESTINAL (ABDOMEN) Abdominal Exam: normal bowel sounds, distended, tenderness (generalized) - LYMPHATIC Lymphatic: no adenopathy - MUSCULOSKELETAL Back Exam: normal inspection Extremity: normal range of motion, non-tender Peripheral Pulses: radial (R): 2+, radial (L): 2+ - SKIN Integumentary: normal color, warm/dry. negative: normal turgor (poor skin turgor) - NEUROLOGIC Neurologic: grossly normal, no motor/sensory deficits - PSYCHIATRIC Psych/Mental Status: normal mood/affect, normal thought content, normal thought process, oriented x 3 Progress - PLAN OF CARE/RESULTS Progress/Plan/Lab Results: Vital Signs - 8 hr 10/06/19 20:56 Temperature 97.6 F Pulse Rate 93 H Respiratory Rate 20 Blood Pressure 190/141 O2 Sat by Pulse Oximetry 100 Laboratory Results - last 24 hr 10/06/19 10/06/19 20:59 21:10 Specimen Type ARTERIAL Sample Site L RADIAL pH 7.40 pCO2 45 pO2 76 HCO3 26.9 H Base Excess 2.6 Oxyhemoglobin 94.4 L ABG O2 Sat (Calculated) 14.0 L ABG O2 Saturation 97.7 ABG Carboxyhemoglobin 2.40 ABG Methemoglobin 0.9 Brent Test YES A-a O2 Difference 17.0 Total Hemoglobin 10.5 L Lactate 2.00 Blood Gas Modality ROOM AIR FiO2 % 21.0 POC Glucose 500 H D Orders Category Date Time Status Cardiac Monitoring DIRECTED Care 10/06/19 21:10 Active ED: Urine Bedside NOW Care 10/06/19 21:10 Active FSBS/Accucheck Result Q15M Care 10/06/19 21:11 Active FSBS/Accucheck Result Q1H Care 10/06/19 21:10 Active Hypoglycemia/FSBS <50 or Range of 50-70 PRN Care 10/06/19 21:11 Active Notify Physician ORDERED Care 10/06/19 21:11 Active Saline Loc DIRECTED Care 02/08/20 21:11 Active Saline Loc NOW Care 10/06/19 21:10 Active Vital Signs Order Q1H Care 10/06/19 21:10 Active ABG [RESP] Routine Lab 10/06/19 21:10 Completed ACETONE SERUM [CHEM] Stat Lab 10/06/19 21:50 Ordered CBC WITH NO DIFF [HEME] Stat Lab 10/06/19 21:50 Ordered CK PROFILE [SP CHEM] Stat Lab 10/06/19 21:50 Ordered COMPREHENSIVE METABOLIC PANEL [CHEM] Stat Lab 10/06/19 21:50 Ordered LACTATE, PLASMA [CHEM] Stat Lab 10/06/19 21:51 Ordered MAGNESIUM [CHEM] Stat Lab 10/06/19 21:50 Ordered PHOSPHORUS [CHEM] Stat Lab 10/06/19 21:50 Ordered TROPONIN T HIGH SENSITIVITY Stat Lab 10/06/19 21:50 Ordered URINALYSIS [URINALYSIS] Stat Lab 10/06/19 21:10 Uncollected URINE DRUG SCREEN PL Stat Lab 10/06/19 21:10 Uncollected URINE DRUG SCREEN Stat Lab 10/06/19 21:10 Uncollected 0.9% Sodium Chloride Inj [Ns] 1,000 ml Med 10/06/19 21:15 Active IV 500 mls/hr Dextrose 50% Syringe [D50w Syringe] Med 10/06/19 21:10 Active 25 ml IV PRN PRN Dextrose 50% Syringe [D50w Syringe] Med 10/06/19 21:10 Active 50 ml IV PRN PRN Insulin Human Regular [Humulin R] Med 10/06/19 21:10 Discontinued 4.4 unit IV ONCE ONE Hypoglycemia Stat Oth 10/06/19 21:10 Ordered EKG [EKG] Stat Ther 10/06/19 21:10 Ordered Result Diagrams: 10/06/19 22:45 10/06/19 22:45 - XRAY 1 XRAY Study: Chest Impression: Abnormal (Cardiomegaly with cephalization, no consolidation or infiltrate visualized.) - CONSULTS/PCP/HOSPITALIST Notification #1 *Consult/PCP/Hospitalist*: Dr. Youngblood Time Discussed: 01:50 (Will accept if Phos recheck still low) Reason/Comments: hypophosphatemia, hyperglycemia due to type I diabetes poorly controlled, Consult Disposition: Will see in ED, other (will admit patient to the hospital if serum phosphorus recheck doesn't increase after the patient has been given neutra-phos.) - CHANGE OF SHIFT REPORT (ED Provider) 1 Report Given and Care Transferred to:: course of care and MDM discussed with both Dr. Youngblood and Dr. Flood. Time of Transfer: 03:03 (Pending serum phosphorus repeat) Items Pending: Labs (serum Phosphorus) Comment: If serum phosphorus is increased from 0.4 patient is to be discharged back to [facility] and follow up with Dr. Faust regarding her chronically low phosphorus levels. If the patient's phosphorus remains unchanged, Dr. Youngblood has agreed to accept the patient for admission to the hospital. A prescription for Neutra-phos has been placed in the patient's chart in the event that she is discharged and Dr. Flood is aware of the current disposition for this patient. Departure - Departure Date of Disposition Decision: 10/07/19 Time of Disposition Decision: 02:47 (Discharge to [facility]) DIAGNOSIS: Elevated liver enzymes, End-stage renal disease on hemodialysis, Hypop hosphatemia, Hyperglycemia due to type 1 diabetes mellitus, Noncompliance with medications Type 1 diabetes Qualifiers: Diabetes mellitus complication detail: with chronic kidney disease Chronic kidney disease stage: on chronic dialysis Disposition: [facility] 03 Certified Medical Emergency: Emergent Condition: Fair Additional Instructions: Please follow up with Dr. Faust regarding your chronically low phosphorus levels. Return to the emergency department if you develop any new or recurrence of symptoms. Prescriptions: Naph,Mb-Db/K pH,Mbdb [Phos-Nak Packet] 1 ea PO TID #21 powd.pack Referrals and Follow-Ups: Vicki Lee MD [Primary Care Provider] - Discharge Education: Hyperglycemia, [id number], Type 1 Diabetes Mellitus, Self Care, Adult - Critical Care Note This patient required my direct & personal management of CC.: Yes Total Time (mins): 70 Critical Care Statement: This patient required my direct personal management to treat or rule out processes, the absence of which, could potentiallly result in sudden, clinically significant life or limb threatening deterioration. Attestation - Physician/ SARAI Attestation Patient care was provided by Advanced Practice Provider:: No The physician spent face to face time with patient:: Yes Advanced Practice Provider documentation review:: Supervising physician onsite and consulted in the evaluation and care of this patient. The physician did have a face to face encounter with the patient. This chart was documented by the indicated scribe, (Roslyn Duque Scribe) and accurately reflects the services I performed and decisions made by me, Jorge Branham DO, as attested by the provider's signature.
[2019-10-07] MEDS ORDERED: SODIUM PHOSPHATE IV ONE ×2 (04:04→04:12)
[2019-10-07] MEDS ORDERED: NS IV ONE ×2 (04:04→04:12)
[2019-10-07] MEDS ORDERED: LIDODERM TOP ONE (05:38)
[2019-10-07] MEDS ORDERED: PEPCID PO ONE (05:38)
[2019-10-07] MEDS ORDERED: TYLENOL PO ONE (06:22)
[2019-10-07] MEDS ORDERED: HUMULIN R SUBQ ONE (06:40)
--- NOTE | 2019-10-07 07:32 | Diag Imaging Result Doc PS360 ---
EXAM: CHEST-1 VIEW 10/06/2019 HISTORY: DKA TECHNIQUE: AP portable at 2335 COMMENT: There is cardiomegaly. The platelike opacities which were previously present in the left upper lobe on 09/11/2019 and in the left lower lobe have largely resolved. There is still some platelike opacity over the right base. The inspiration is slightly less optimal than on the previous study. IMPRESSION: Improved subsegmental atelectasis versus bronchopneumonia. Electronically signed by Issa Castro 10/07/2019 7:30 AM
--- NOTE | 2019-10-07 10:37 | EKG Report ---
Test Performed on : 10/07/2019 08:39:49 AM Test Reason : Suspect DKA Blood Pressure : / mmHG Vent. Rate : 088 BPM Atrial Rate : 088 BPM P-R Int : 174 ms QRS Dur : 084 ms QT Int : 404 ms P-R-T Axes : 050 015 056 degrees QTc Int : 488 ms Normal sinus rhythm. Cannot rule out Anterior infarct , age undetermined Abnormal ECG When compared with ECG of 20-SEP-2019 18:09, (Unconfirmed) Nonspecific T wave abnormality no longer evident in Lateral leads Unconfirmed Result
[2019-10-07] MEDS: HUMALOG SUBQ SCH ×2 (12:00→17:44)
[2019-10-07] MEDS: ULTRAM PO PRN ×2 (12:14→20:25)
[2019-10-07] MEDS: DILANTIN PO SCH ×2 (14:43→20:24)
[2019-10-07 15:03] LABS: ALBUMIN 3.7 g/dL (3.5-5.0); CALCIUM 8.3 mg/dL (8.8-10.2); CREATININE 3.4 mg/dL (0.5-0.9)
[2019-10-07 15:23] LABS: PHOSPHORUS 0.8 mg/dL (2.7-4.5); POTASSIUM 7.4 mmol/L (3.5-5.1)
[2019-10-07] MEDS ORDERED: SODIUM BICARBONATE 8.4% IV STA (15:29)
[2019-10-07] MEDS ORDERED: CALCIUM GLUCONATE 1 GM in NS 50 ML IV STA (15:29)
[2019-10-07] MEDS ORDERED: ALBUTEROL 0.5% INH CONC FOR HYPERKALEMIA INH ONE ×3 (15:29→23:00)
[2019-10-07] MEDS ORDERED: HUMULIN R IV STA (15:30)
[2019-10-07] MEDS ORDERED: SODIUM PHOSPHATE 20 MMOL in NS 250 ML IV ONE (15:35)
--- NOTE | 2019-10-07 16:29 | HISTORY AND PHYSICAL ---
PRIMARY CARE PROVIDER: Dr. Vicki eLe MD SOLUTIONS ARCHITECT: Dr. Kay CHIEF COMPLAINT: Brought in from senior care for hyperglycemia. HISTORY OF PRESENT ILLNESS: Ms. Chaparro is a 39-year-old female, well known to our service for multiple admissions for DKA with diabetes mellitus type 1, hypertension, gastroparesis, hyperlipidemia, anemia, end-stage renal disease on hemodialysis, peripheral neuropathy who is a resident of [facility]. She was brought in for concern of DKA secondary to her hyperglycemia. Workup in the ED just showed hyperglycemia. Unfortunately, she was found to have a low phosphorus. They tried to treat it with p.o. without much result. She got 2 more treatments with IV phosphorus. It brought up to 0.8. Dr. Kay was called for recommendations. He recommended that her potassium be above 1, and if it did, discharge her on sodium phosphate at 1.5 g p.o. tablets daily for 10 days. However, the highest we could get it was to 0.8. We will admit her. Recheck her phosphate level at 2 p.m. The patient is currently tearful and does not want to be admitted to the hospital. We did discuss the perils of having a low phosphorus and needing to get her electrolytes balanced. Her blood sugars are currently around her norm in the 200 to 300s. We will continue her on her regular medications. PAST MEDICAL HISTORY: Per HPI. PAST SURGICAL HISTORY: AV graft, cholecystectomy, PEG tube placement, peritoneal dialysis, cyst removal from the forehead, cataract extraction. MEDICATIONS: Home medications are being compiled but include Tylenol Lantus, Lispro, amlodipine, aspirin, Keppra, Dilantin. REVIEW OF SYSTEMS: Twelve-point review of systems completely negative. She denies any current symptoms. She is tearful and requesting to be sent back to the senior care. She reports she feels better when she is at the senior care and not in the hospital, and reports that she has been doing everything she can to stay out of the hospital. PHYSICAL EXAMINATION: VITAL SIGNS: Temperature is 97.6 degrees, heart rate 92, respirations 21, blood pressure 158/101, O2 is 100% on room air. GENERAL: Ms. Chaparro is a 39-year-old female who is lying in the stretcher, very tearful, does not want to be admitted to the hospital. HEENT: Atraumatic, normocephalic. PERRL. NECK: Supple trachea midline. CARDIOVASCULAR: S1, S2 appreciated. No murmurs, gallops, or rubs noted. RESPIRATORY: Lung sounds clear bilaterally. GI: Soft, nontender, nondistended. Positive bowel sounds 4 quadrants. NEUROLOGIC: She is again quite tearful, but she is awake, alert, and oriented. LABORATORY DATA: White count 7, hemoglobin 11 and hematocrit 35, platelet count is 489,000. ABG; pH 7.40, pCO2 45, PO2 76, bicarb 26, base excess 2.6, O2 saturations 97.7%. Sodium 128, potassium 4.8, BUN 35, creatinine 2.8, blood glucose is currently 305. Initial phosphorus 0.4, currently 0.8, magnesium 2.8. AST 54, ALT 68, alkaline phosphatase 717. Acetone level was negative. ASSESSMENT AND PLAN: 1. Hypophosphatemia. The patient has received 2 doses of p.o. and IV. We will recheck another phosphate at 2 p.m. and re-treat accordingly. Dr. Kay has been consulted. 2. End-stage renal disease on hemodialysis with Dr. Kay. She reports that she has been undergoing extra sessions of dialysis to remove fluid. He has been consulted secondary to her phosphatemia. He did recommend a medication that our pharmacy does not have available, or has an equivalent to, and they would have to order and the cost would not be effective. 3. Diabetes mellitus type 1 with hyperglycemia. Patient is now back at her normal range of blood sugars. Will continue on her home regimen, diabetic diet. 4. Hypertension. Continue home regimen. 5. Gastroparesis. 6. Hyperlipidemia. 7. Gastroesophageal reflux disease. 8. Peripheral neuropathy. 9. Further recommendations to follow physician evaluation, laboratory and diagnostic data. Dictated by MANNY Gonzalez for Narcisa Pack MD cc: MD Hardy Garcia MD Hiteshri S. Bhavsar, MD
--- NOTE | 2019-10-07 16:56 | EKG Report ---
Test Performed on : 10/07/2019 4:42:41 PM Test Reason : hyperkalemia Blood Pressure : / mmHG Vent. Rate : 121 BPM Atrial Rate : 121 BPM P-R Int : 156 ms QRS Dur : 078 ms QT Int : 336 ms P-R-T Axes : 055 007 046 degrees QTc Int : 477 ms Sinus tachycardia. Cannot rule out Anterior infarct , age undetermined Abnormal ECG Confirmed by Hipolito James MD ([id number]) on 10/08/2019 4:15:01 PM
[2019-10-07] MEDS ORDERED: D50W SYRINGE IV ONE (19:00)
[2019-10-07] MEDS ORDERED: HUMULIN R IV ONE ×2 (19:00→23:00)
[2019-10-07] MEDS: APRESOLINE IV PRN (20:24)
[2019-10-07] MEDS: NEURONTIN PO SCH (20:24)
[2019-10-07] MEDS: KEPPRA PO SCH (20:24)
[2019-10-08] MEDS: APRESOLINE IV PRN ×2 (04:30→08:24)
[2019-10-08 06:09] LABS: BASO# 0.03 X1000 (0.0-0.2); BASO% 0.4 % (0.0-0.8); EOS# 0.02 X1000 (0.0-0.7); EOS% 0.2 % (0.0-10.0); HEMATOCRIT 26.8 % (37.0-47.0); HEMOGLOBIN 8.4 g/dL (12.0-16.0); IMM GRAN# 0.06 X1000 (0.0-0.04); IMM GRAN% 0.7 % (0.0-0.5); LYMPH# 0.82 X1000 (1.2-3.4); LYMPH% 10.1 % (20.5-51.1); MCH 30.7 PG (27-31); MCHC 31.3 g/dL (33-37); MCV 97.8 FL (81-99); MONO# 1.21 X1000 (0.11-0.59); MONO% 14.9 % (1.7-9.3); MPV 9.6 FL (7.4-10.4); NEUT# 5.98 X1000 (1.4-6.5); NEUT% 73.7 % (42.2-75.2); PLT 439 X1000 (130-400); RBC 2.74 XMIL (4.2-5.4); RDW 19.3 % (11.5-14.5); WBC 8.12 X1000 (4.8-10.8)
[2019-10-08 06:42] LABS: ALBUMIN 3.6 g/dL (3.5-5.0); CALCIUM 8.2 mg/dL (8.8-10.2); CREATININE 4.4 mg/dL (0.5-0.9); MAGNESIUM 2.7 mg/dL (1.5-2.7); PHOSPHORUS 0.5 mg/dL (2.7-4.5); POTASSIUM 6.1 mmol/L (3.5-5.1)
[2019-10-08] MEDS ORDERED: NS 2,000 ML MISC PRN (06:43)
[2019-10-08] MEDS ORDERED: HEPARIN IV PRN (06:43)
[2019-10-08] MEDS ORDERED: TIGHT: 0.2 ML/HR FOR DIALYSIS MISC PRN (06:43)
[2019-10-08] MEDS ORDERED: HUMULIN R SUBQ SCH ×2 (07:00→13:30)
[2019-10-08] MEDS ORDERED: SODIUM PHOSPHATE 20 MMOL in NS 250 ML IV ONE (07:08)
[2019-10-08] MEDS ORDERED: G.I. COCKTAIL PO ONE (07:26)
[2019-10-08] MEDS ORDERED: AYR NASAL SPRAY NAS PRN (07:28)
[2019-10-08] MEDS: ZOFRAN IV PRN ×2 (07:42→12:09)
[2019-10-08] MEDS: HUMALOG SUBQ SCH ×3 (07:43→17:51)
[2019-10-08] MEDS ORDERED: PROTONIX PO ONE (08:11)
[2019-10-08] MEDS: NORVASC PO SCH (08:21)
[2019-10-08] MEDS: LANTUS INSULIN SUBQ SCH (08:25)
[2019-10-08 08:31] LABS: BANDS 2 % (0-1); HYPOCHROM 2+; LYMPHS 8 % (21-51); MONO 10 % (1-9); SEGS 80 % (42-75)
[2019-10-08] MEDS ORDERED: LANTUS INSULIN SUBQ SCH (09:00)
[2019-10-08] MEDS: ULTRAM PO PRN ×2 (12:06→19:02)
--- NOTE | 2019-10-08 12:18 | NEPHROLOGY CONSULTATION ---
DATE: 10/08/2019 REASON FOR ADMISSION: Hyperglycemia, profound hypophosphatemia. CONSULTING PHYSICIAN: Narcisa Pack MD REASON FOR CONSULTATION: Hypophosphatemia, assist with management, ESRD. HISTORY OF PRESENT ILLNESS: This is a 39-year-old female known to our service for end-stage renal disease on hemodialysis Tuesday, Tuesday, Tuesday. She is currently a resident at [facility]. She was brought into the emergency room on day of admission secondary to hyperglycemia. She was found to have a phosphorus of 0.4. She was treated with oral supplement that brought up to 0.8. She had been treated with IV supplement after admission and no improvement. Phosphorus today remains at 0.55. The patient does have a history of diabetes type 1, gastroparesis. She is not on a binder as an outpatient for phosphorus. She is tearful when I see her. She is concerned that she has these pruritic lesions pretty much from head to toe that she states have come up since her last admission, which was about 2 weeks ago. Review of that admission indicates that she did have some lesions to the arms and back, but no indication that she had him to this extent. These are crusted. No drainage. Otherwise today is the patient's routine dialysis day and we are seeing her to assist with her electrolyte balance and her ESRD. PAST MEDICAL HISTORY: Again diabetes, hypertension, gastroparesis, hyperlipidemia, end-stage renal disease. Anemia, peripheral neuropathy. SURGICAL HISTORY: She has had an AV graft cholecystectomy. She has had a PEG tube placement. She has been on peritoneal dialysis in the past. She has had a cyst removed from the forehead. She has had cataract extraction. ALLERGIES: Adhesive tape. HOME MEDICATIONS: Again are listed as aspirin, amlodipine, Dilantin, Lidoderm, Keppra., Insulin lispro. Insulin Lantus. Tylenol, Neurontin. FAMILY HISTORY: Noncontributory. SOCIAL HISTORY: Again she lives at [facility]. There is no current ETOH, tobacco or illicit drug use. REVIEW OF SYSTEMS: Pruritic rash weakness. PHYSICAL EXAMINATION: Vital Signs: Temperature 98.5 degrees, pulse 112 respiratory rate 17, blood pressure 176/93. Intake 840 mL. Output has not been measured. General: This is a chronically ill-appearing, middle-aged female, sitting up in bed. She is somewhat tearful but is in no actual distress. HEENT: Normocephalic, atraumatic. Conjunctivae are pale. Oral mucosa is moist. Neck: Supple. There is no JVD. Cardiovascular: Regular rate and rhythm without murmur. Pulmonary: She is clear bilaterally. She has no increased work of breathing. Abdomen: Soft, with positive bowel sounds. : Not inspected. Extremities: No edema. Integumentary: Skin with diffusely scattered lesions again pretty much from head to toe. These are crusted. There is no drainage. There is no drainage. Erythema around the site. The patient states that they are pruritic. Neurologic: Nonfocal. LAB DATA: WBC of 8.1, hemoglobin 8.4, sodium 132, potassium 6.1, CO2 21, creatinine 0.4. calcium 8.2, her phosphorus again is 0.5. Her magnesium is 2.7. We rechecked PTH this morning, it is 63. Vitamin D 1 hydroxy pending. ASSESSMENT AND PLAN: 1. End-stage renal disease. Today is her routine dialysis day. She has been going for extra treatment for fluid removal, in addition to her regular dialysis but she has not been on continuous renal replacement therapy. She has received both oral and IV supplementation for her phosphorus. I have given her another dose of sodium phosphate this morning. She is to dialyze today. 2. Electrolytes, acid-base balance. She is on a 2 K bath her dry weight 3.5 hour treatment. 3. Anemia stable. 4. Hypertension modestly elevated. Restart home medications this morning. 5. Gastroparesis followed by primary. Dictated by MANNY Ordonez for Hardy Kay MD Face to face encounter, data reviewed, discussed with Carl Fernandez on 10/08/18. I agree with the above assessment and plan of care. cc: Hardy Kay MD [facility]
[2019-10-08] MEDS ORDERED: LABETALOL IV PRN (13:26)
--- NOTE | 2019-10-08 14:26 | PROGRESS NOTE ---
DATE: 10/08/2019 SUBJECTIVE: The patient complains of indigestion and some mild chest pain this morning. She was noted to be very anxious. OBJECTIVE: Vital Signs: Temperature 97.9 degrees, blood pressure 202/103, heart rate 114, respirations 22, O2 saturation is 100% on 2 L nasal cannula. General: This is a chronically ill- appearing, young female lying in bed, in no acute distress. Heart: S1, S2 normal. Tachycardic. Lungs: Clear to auscultation bilaterally. Abdomen: Positive bowel sounds. Soft, nontender, nondistended. Extremities: 1+ edema bilaterally. Neurologic: The patient is anxious, but alert and oriented x4. LABS: White blood cell count 8.1, hemoglobin 8.4, hematocrit 26, platelets 439,000. Sodium 132, potassium 6.1, chloride 92, CO2 21, BUN 60, creatinine 4.4, glucose 523, phosphorus 0.5, magnesium 2.7, albumin 3.6. ASSESSMENT AND PLAN: 1. Uncontrolled insulin-dependent diabetes mellitus. We will increase the patient's long-acting insulin. Continue on premeal insulin monitor the patient's blood sugars every 4 hours and adjust the regimen accordingly. 2. Hyperkalemia. This will be addressed during dialysis today. 3. Hypophosphatemia. The patient is currently receiving phosphorus replacement. We will check the phosphorus level later this afternoon after replacement is complete. 4. Gastroparesis. Stable. 5. Seizure disorder. Continue on Dilantin and Keppra. 6. Gastrointestinal prophylaxis. Continue on Protonix. 7. Chronic kidney disease 5D. The patient is scheduled for dialysis today. 8. Hypertension. Continue on Norvasc. 9. Deep vein thrombosis prophylaxis. We will start the patient on heparin. 10. Disposition. The patient can be transferred back to the skilled nursing on Tuesday if her blood glucose is stable and her phosphorus is corrected. cc: Narcisa Pack MD MTDD
[2019-10-08] MEDS: D50W SYRINGE IV PRN ×2 (14:27→15:47)
[2019-10-08] MEDS: KEPPRA PO SCH ×2 (15:54→20:54)
[2019-10-08] MEDS: ASPIRIN PO SCH (15:54)
[2019-10-08] MEDS: DILANTIN PO SCH ×3 (15:55→20:54)
[2019-10-08 19:33] LABS: ALBUMIN 4.1 g/dL (3.5-5.0); CALCIUM 8.8 mg/dL (8.8-10.2); CREATININE 2.5 mg/dL (0.5-0.9); PHOSPHORUS 1.9 mg/dL (2.7-4.5); POTASSIUM 5.1 mmol/L (3.5-5.1)
[2019-10-08] MEDS: NEURONTIN PO SCH (20:54)
[2019-10-08] MEDS: HEPARIN SUBQ SCH (20:54)
[2019-10-08] MEDS: TRANDATE PO SCH (20:54)
[2019-10-08] MEDS ORDERED: SODIUM PHOSPHATE 30 MMOL in NS 250 ML IV ONE (21:06)
[2019-10-09] MEDS: ULTRAM PO PRN ×2 (04:51→18:48)
[2019-10-09] MEDS: PROTONIX PO SCH (06:00)
[2019-10-09] MEDS: TRANDATE PO SCH ×2 (08:59→21:41)
[2019-10-09] MEDS: NORVASC PO SCH (08:59)
[2019-10-09] MEDS: DILANTIN PO SCH ×3 (08:59→21:41)
[2019-10-09] MEDS: KEPPRA PO SCH ×2 (08:59→21:41)
[2019-10-09] MEDS: HEPARIN SUBQ SCH ×2 (08:59→21:41)
[2019-10-09] MEDS: HUMALOG SUBQ SCH (09:00)
[2019-10-09] MEDS: ASPIRIN PO SCH (09:01)
[2019-10-09] MEDS: LANTUS INSULIN SUBQ SCH (09:02)
[2019-10-09] MEDS: ZOFRAN IV PRN (09:12)
[2019-10-09] MEDS ORDERED: HUMALOG SUBQ SCH (10:32)
[2019-10-09] MEDS: D50W SYRINGE IV PRN ×2 (13:27→14:33)
--- NOTE | 2019-10-09 14:08 | NEPHROLOGY PROGRESS NOTE ---
DATE: 10/09/2019 SUBJECTIVE: Patient resting in bed. No complaints. She underwent dialysis yesterday without difficulty. OBJECTIVE: Vital Signs: Temperature 97.9 degrees, pulse 80, respiratory rate 15 and blood pressure 113/70. Intake 990 mL and output 400 mL. General: Chronically ill- appearing middle- aged female resting in bed in no acute distress. HEENT: Normocephalic, atraumatic. Oral mucosa moist. Neck: Supple without JVD. Cardiovascular: Regular rate and rhythm with a murmur. Pulmonary: Clear bilaterally. Abdomen: Soft. Positive bowel sounds. : Not inspected. Extremities: No edema. Integumentary: Continues with scattered lesions diffusely. No drainage. Neurologic: Nonfocal. LABORATORY DATA: Pending. Her last set of labs were drawn yesterday evening with a phosphorus of 1.9 at that time. ASSESSMENT AND PLAN: 1. ESRD. She underwent dialysis yesterday. She does not require additional treatment today. If she remains in the hospital on Tuesday, we will plan to dialyze her again. 2. Electrolytes, acid-base balance anemia. These have been stable. Again, her phosphorus has improved with repletion. We are waiting on her labs from this morning. 3. Disposition: We understand that she will be likely discharged back to the skilled nursing today if her phosphorus levels have not dropped again. Dictated by MANNY Ordonez for Hardy Kay MD cc: Hardy Kay MD [facility]
--- NOTE | 2019-10-09 14:37 | PROGRESS NOTE ---
DATE: 10/09/2019 INTERVAL HISTORY: No acute events overnight. Her phosphate level had increased yesterday. She did have hypoglycemia with blood glucose of 69 in the morning time. SUBJECTIVE: At the time of my evaluation, Ms. Chaparro started complaining of feeling dizzy. I lowered her head and raised her legs, and compressed her bilateral lower extremities. I also asked the nurse to check stat vitals. Her pulse was 72. Her blood pressure was more than 110 systolic and she was saturating 100% on room air. A stat blood glucose was performed, which was 111. I reassured Ms. Chaparro and she started feeling better. Otherwise, Ms. Chaparro is feeling better. Complains of some abdominal pain and leg wounds. We discussed about her diabetes and challenging management of it. We also discussed about her dialysis. VITALS: Temperature 97.8 degrees, pulse 84, respiratory rate 20, blood pressure 117/72, she is saturating 100% on room air. PHYSICAL EXAMINATION: Not in acute distress. Mild conjunctival pallor. No cyanosis, clubbing, or icterus. She has multiple scars of healed pustules over her entire body. Oral cavity is moist. Air entry bilaterally equal. No wheeze, rhonchi, crackles. Cardiovascular: S1, S2 normal. No murmur, rub, or gallop. She has a right-sided arm AV fistula. Abdomen: Soft. There is a scar of previous PEG tube. Active bowel sounds. No lower extremity edema. She does have what appears as a traumatic ulcer on the left foot. She is alert and she is oriented x3. She is able to engage in the conversation meaningfully. LABS: Suggestive of hemoglobin of 8.4, platelets of 439,000. She does have blood glucose of 111 at the moment. Her last phosphate was more than 1.9. No microbiological or imaging data. ASSESSMENT AND PLAN: 1. Uncontrolled insulin-dependent type 1 diabetes mellitus with frequent episodes of hyperglycemia and hypoglycemia. I encouraged her to take regular small frequent meals and I will change her insulin regimen to her home regimen with Lantus and mealtime insulin with holding parameters. 2. End-stage renal disease on Tuesday, Tuesday, Tuesday hemodialysis, with hyperkalemia and hypophosphatemia. Her electrolytes appear to be in better shape at the moment. I will appreciate nephrology about dialysis recommendation and follow up with renal panel tomorrow. 3. History of seizures. Continue home phenytoin as well as levetiracetam and outpatient followup. 4. Hypertension. Continue amlodipine, labetalol, aspirin. 5. Disposition. I will monitor the patient in the hospital for another 24 hours as I keep a close eye over her blood glucose. Plan of care discussed with the patient. If her blood glucose and electrolytes remain acceptable, my plan is to discharge her in the next 24 hours or so. She is in agreement with the plan. We will send her back to her custodial in the next 24 hours if things go well. cc: Tony Gandhi MD
[2019-10-09 19:50] LABS: HEMATOCRIT 27.5 % (37.0-47.0); HEMOGLOBIN 8.9 g/dL (12.0-16.0); MCH 31.2 PG (27-31); MCHC 32.4 g/dL (33-37); MCV 96.5 FL (81-99); MPV 9.3 FL (7.4-10.4); RBC 2.85 XMIL (4.2-5.4); RDW 19.3 % (11.5-14.5); WBC 6.75 X1000 (4.8-10.8)
[2019-10-09 20:09] LABS: ALBUMIN 3.4 g/dL (3.5-5.0); CALCIUM 7.5 mg/dL (8.8-10.2); CREATININE 3.6 mg/dL (0.5-0.9); PHOSPHORUS 4.7 mg/dL (2.7-4.5)
[2019-10-09] MEDS: NEURONTIN PO SCH (21:41)
[2019-10-09] MEDS: MELATONIN PO SCH (21:41)
[2019-10-10] MEDS: INSTA-GLUCOSE PO PRN ×2 (01:16→01:44)
[2019-10-10] MEDS: D50W SYRINGE IV PRN (02:00)
[2019-10-10 06:12] LABS: ALBUMIN 3.5 g/dL (3.5-5.0); CALCIUM 7.3 mg/dL (8.8-10.2); CREATININE 4.2 mg/dL (0.5-0.9)
[2019-10-10 06:15] LABS: POTASSIUM 7.2 mmol/L (3.5-5.1)
[2019-10-10] MEDS: PROTONIX PO SCH (06:16)
[2019-10-10] MEDS ORDERED: D50W SYRINGE IV ONE (06:36)
[2019-10-10] MEDS ORDERED: TIGHT: 0.2 ML/HR FOR DIALYSIS MISC PRN (06:36)
[2019-10-10] MEDS ORDERED: HEPARIN IV PRN (06:36)
[2019-10-10] MEDS ORDERED: ALBUTEROL 0.5% INH CONC FOR HYPERKALEMIA INH ONE (06:36)
[2019-10-10] MEDS ORDERED: HUMULIN R IV ONE (06:36)
[2019-10-10] MEDS ORDERED: NS 2,000 ML MISC PRN (06:36)
[2019-10-10] MEDS ORDERED: LANTUS INSULIN SUBQ SCH (09:00)
[2019-10-10] MEDS: DILANTIN PO SCH ×3 (11:35→21:21)
[2019-10-10] MEDS: HEPARIN SUBQ SCH ×2 (11:45→21:21)
[2019-10-10] MEDS: ASPIRIN PO SCH (11:46)
[2019-10-10] MEDS: KEPPRA PO SCH ×2 (11:46→21:21)
[2019-10-10] MEDS: NORVASC PO SCH (11:46)
[2019-10-10] MEDS: TRANDATE PO SCH ×2 (11:46→21:21)
[2019-10-10] MEDS: ULTRAM PO PRN ×2 (11:49→17:30)
[2019-10-10] MEDS: ZOFRAN IV PRN (17:30)
--- NOTE | 2019-10-10 18:35 | NEPHROLOGY PROGRESS NOTE ---
DATE: 10/10/2019 SUBJECTIVE: She is currently on dialysis. We arranged for early treatment today because her potassium was 7.2. She continues to have fluid retention and shortness of breath. OBJECTIVE: Vital Signs: Blood pressure 100/74, heart rate 83, respirations 17, afebrile. General: No acute distress. Skin: Warm and dry. HEENT: Facial edema is present. Neck: Neck veins are distended. Heart: Regular with a murmur. Lungs: Equal. No crackles. Abdomen: Soft. Extremities: Have 1+ edema. No clubbing or cyanosis. IMPRESSION: Chronic kidney disease 5D. Again, potassium 7.2. Dialysis today using a 2 potassium bath. Goal of 4 L ultrafiltration if her blood pressure allows. Likely repeat tomorrow. cc: Hardy Kay MD
[2019-10-10] MEDS: HUMALOG SUBQ SCH ×2 (18:39→21:22)
--- NOTE | 2019-10-10 19:59 | PROGRESS NOTE ---
DATE: 10/10/2019 INTERVAL HISTORY: Ms. Chaparro unfortunately had several episodes of hypoglycemia yesterday which required multiple oral glucoses as well as intravenous dextrose. All of her insulins were held. In the morning time she also developed significant hyperkalemia for which she was taken for dialysis. She also received and inhalational albuterol. SUBJECTIVE: Ms Chaparro is sleepy. Denies any complaints. VITALS: Temperature 97.6 degrees, pulse 51, current respiratory rate is 17 per minute, blood pressure 165/90 she is saturating 97% on room air. PHYSICAL EXAMINATION: She is not in acute distress. Mild conjunctival pallor. No cyanosis, clubbing, or icterus. Multiple scars of healed pustules over entire body. Oral cavity is moist.Lungs: Air entry bilaterally equal. No wheeze, rhonchi, or crackles. Cardiovascular: S1, S2 normal. No murmur, rub, or gallop. She has a right-sided arm AV fistula. Abdomen: Soft. Previous PEG tube scar is present. Active bowel sounds. Extremity: No lower extremity edema. She has a traumatic ulcer on the left foot dorsal aspect. Neurological: She is alert oriented x3. LABORATORY AND DIAGNOSTIC DATA: Labs today suggestive of a potassium of 7.2, BUN 53, creatinine 4.2, blood glucose 141. No microbiological or new imaging. ASSESSMENT AND PLAN: 1. Uncontrolled insulin-dependent diabetes mellitus type 1 with frequent hyper and hypoglycemia episodes. I will continue to hold insulin and we will start her on sliding scale insulin as her blood glucose permits. 2. End-stage renal disease on Tuesday, Tuesday, Tuesday hemodialysis with hyperkalemia and hypophosphatemia. Her electrolytes appear to be within acceptable range with her improvement in her phosphate level. She received dialysis and I will follow up with potassium levels. 3. History of seizures. Continue home phenytoin. 4. Hypertension. Continue home amlodipine, labetalol, aspirin. DISPOSITION: I am awaiting better management of her blood glucose. Based on that, I will anticipate discharge in next 24 to 48 hours. Plan of care discussed with the patient. Her questions have been answered. cc: Tony Gandhi MD
[2019-10-10] MEDS: MELATONIN PO SCH (21:21)
[2019-10-10] MEDS: NEURONTIN PO SCH (21:21)
[2019-10-11] MEDS: D50W SYRINGE IV PRN ×2 (00:57)
[2019-10-11] MEDS: ULTRAM PO PRN ×2 (04:13→17:34)
[2019-10-11 05:30] LABS: BASO# 0.07 X1000 (0.0-0.2); BASO% 0.9 % (0.0-0.8); EOS# 0.13 X1000 (0.0-0.7); EOS% 1.7 % (0.0-10.0); HEMATOCRIT 28.8 % (37.0-47.0); HEMOGLOBIN 8.9 g/dL (12.0-16.0); IMM GRAN# 0.04 X1000 (0.0-0.04); IMM GRAN% 0.5 % (0.0-0.5); LYMPH% 10.4 % (20.5-51.1); MCHC 30.9 g/dL (33-37); MONO# 1.13 X1000 (0.11-0.59); MONO% 14.7 % (1.7-9.3); MPV 9.4 FL (7.4-10.4); NEUT# 5.52 X1000 (1.4-6.5); NEUT% 71.8 % (42.2-75.2); PLT 447 X1000 (130-400); RBC 2.97 XMIL (4.2-5.4); RDW 18.9 % (11.5-14.5); WBC 7.69 X1000 (4.8-10.8)
[2019-10-11 06:01] LABS: CREATININE 3.2 mg/dL (0.5-0.9); POTASSIUM 5.8 mmol/L (3.5-5.1)
[2019-10-11] MEDS: HUMALOG SUBQ SCH ×4 (06:04→21:34)
[2019-10-11] MEDS ORDERED: TIGHT: 0.2 ML/HR FOR DIALYSIS MISC PRN (06:08)
[2019-10-11] MEDS ORDERED: HEPARIN IV PRN (06:08)
[2019-10-11] MEDS ORDERED: NS 2,000 ML MISC PRN (06:08)
[2019-10-11] MEDS: PROTONIX PO SCH (06:21)
[2019-10-11] MEDS: DILANTIN PO SCH ×3 (08:32→21:34)
[2019-10-11] MEDS: TRANDATE PO SCH ×2 (08:32→21:34)
[2019-10-11] MEDS: HEPARIN SUBQ SCH ×2 (08:32→21:34)
[2019-10-11] MEDS: ZOFRAN IV PRN ×2 (08:32→17:31)
[2019-10-11] MEDS: NORVASC PO SCH (08:32)
[2019-10-11] MEDS: KEPPRA PO SCH ×2 (08:32→21:34)
[2019-10-11] MEDS: ASPIRIN PO SCH (08:32)
[2019-10-11 13:42] LABS: IRON SATURATION 27 %; TIBC 251 ug/dL; TOTAL IRON 69 ug/dL (49-151); UNBOUND IRON 182 ug/dL (112-346)
[2019-10-11 14:19] LABS: FERRITIN 1715 ng/mL (13-150)
--- NOTE | 2019-10-11 16:12 | NEPHROLOGY PROGRESS NOTE ---
DATE: 10/11/2019 DATE AND TIME SEEN: On 10/11/2019 at 0615 hours. SUBJECTIVE: Ms. Chaparro is resting quietly in bed. States that her blood sugars dropped during the night, feeling better. OBJECTIVE: Vital signs: Temperature 98.2 degrees, blood pressure 156/85, heart rate 54, respirations 17. She is on room air, last recorded saturation 98%. She has had 472 input. She has had 2977 output with dialysis. LABORATORY DATA: Her sodium is 130. Her potassium today is 5.8. Her chloride 90, CO2 of 27, BUN 38, creatinine 3.2, glucose 365. Her anion gap is 13. Her calcium is 8. White count 7.69, hemoglobin 8.9, hematocrit 28.8 with a platelet count of 447,000. PHYSICAL EXAMINATION: General: This is a 39-year-old female. She is resting quietly in bed. She is in no acute distress. Skin: Warm and dry. HEENT: Normocephalic, atraumatic. Conjunctiva is pale. She has some facial edema. Neck: Positive for JVD. Cardiovascular: She is regular rate and rhythm. She has a systolic murmur. Lungs: Clear to auscultation anteriorly. Equal excursion on room air. Abdomen: Soft, nontender. Hypoactive bowel sounds present. Extremities: She has 1+ lower extremity edema along with facial edema as mentioned. No clubbing or cyanosis. Neurological: She is alert and oriented to person and to place. ASSESSMENT AND PLAN: 1. Chronic kidney disease stage 5D. The patient had her dialysis treatment yesterday per her routine. Potassium is again elevated at 5.8. We will plan for dialysis again today. We will place her on a 2-potassium bath. We will dialyze her for 3-1/2 hours. We will attempt 4 liters of ultrafiltration. 2. Electrolytes and acid-base balance with correction on dialysis. 3. Anemia. This is low but stable. 4. Hyperglycemia versus hypoglycemia last night. This is being followed by primary care. I would to thank you for allowing us to follow with this patient. Dictated by MANNY Hatch for Hardy Kay MD Face to face encounter, data reviewed, discussed with Gerri Fitzgerald on 10/11/19. I agree with the above assessment and plan of care. cc: MANNY Hatch MD MTDD
[2019-10-11] MEDS ORDERED: MAALOX PLUS LIQUID PO ONE (17:52)
[2019-10-11] MEDS: MELATONIN PO SCH (21:34)
[2019-10-11] MEDS: NEURONTIN PO SCH (21:34)
--- NOTE | 2019-10-11 21:42 | PROGRESS NOTE ---
DATE: 10/11/2019 INTERVAL HISTORY: Patient still had episodes of hypoglycemia and hyperglycemia. I am seeing her in the Dialysis Unit and she is having vomiting. Ms. Chaparro complains of heartburn as well. She is also complaining of nausea. We discussed about diabetes management. I counseled her that she needs to be compliant with diet as oftentimes she misses her meals, and intermittently she does binge eating. VITAL SIGNS: Currently, temperature 97.5 degrees, pulse 88, respiratory rate 24, blood pressure 198/96, saturating 99% on room air. PHYSICAL EXAMINATION: General: Ms. Chaparro is not in acute distress except nausea. Oral cavity: Moist. Lungs: Air entry bilaterally equal. No wheeze, rhonchi, or crackles. Heart: S1 normal. No murmur or gallop. Abdomen: Soft, mildly tender. Extremities: She has a right arm AV fistula which is hooked up with the dialysis machine. On my previous examination, did have PEG tube scar. No lower extremity edema. She has traumatic ulcer on the left foot dorsal aspect. Neurologic: She was alert and oriented x3. LABS: Hemoglobin of 8.9, platelet of 447,000. In the morning time, she did have a creatinine of 3.2, anion gap of 13. Her blood glucose in the morning time was 365. Surprisingly, her blood glucose dropped yesterday night from 300 to 23. ASSESSMENT AND PLAN: 1. Uncontrolled insulin-dependent diabetes mellitus type 1, with frequent hyperglycemia and hypoglycemia. Continue sliding scale insulin. 2. End-stage renal disease, on Tuesday, Tuesday, Tuesday hemodialysis, with hyperkalemia and hypophosphatemia, now improving. Continue dialysis as per Nephrology recommendations. 3. Others. Continue phenytoin for seizures; amlodipine, labetalol, and aspirin for essential hypertension. DISPOSITION: Continue to monitor patient inside the hospital. Plan of care discussed with her. She is in agreement. cc: Tony Gandhi MD
[2019-10-12] MEDS: D50W SYRINGE IV PRN (00:46)
[2019-10-12] MEDS: ULTRAM PO PRN ×3 (00:54→23:58)
[2019-10-12] MEDS: ZOFRAN IV PRN (05:42)
[2019-10-12] MEDS: PROTONIX PO SCH ×2 (05:42→06:20)
[2019-10-12] MEDS ORDERED: HUMALOG SUBQ ONE (06:15)
[2019-10-12] MEDS: HUMALOG SUBQ SCH ×4 (06:16→22:26)
[2019-10-12] MEDS ORDERED: MAALOX PLUS LIQUID PO ONE (06:17)
[2019-10-12] MEDS: TRANDATE PO SCH ×2 (08:58→22:29)
[2019-10-12] MEDS: HEPARIN SUBQ SCH ×2 (08:58→22:28)
[2019-10-12] MEDS: KEPPRA PO SCH ×2 (08:58→22:29)
[2019-10-12] MEDS: NEPHRO-VITE PO SCH (08:58)
[2019-10-12] MEDS: DILANTIN PO SCH ×3 (08:58→22:29)
[2019-10-12] MEDS: NORVASC PO SCH (08:59)
[2019-10-12] MEDS: ASPIRIN PO SCH (08:59)
[2019-10-12] MEDS ORDERED: G.I. COCKTAIL PO ONE (12:56)
[2019-10-12] MEDS ORDERED: NS 2,000 ML MISC PRN (12:56)
[2019-10-12] MEDS ORDERED: HEPARIN IV PRN (12:56)
[2019-10-12] MEDS: CARAFATE LIQUID PO SCH ×2 (14:45→22:29)
[2019-10-12 16:34] LABS: ALBUMIN 3.4 g/dL (3.5-5.0); CREATININE 4.6 mg/dL (0.5-0.9)
[2019-10-12 16:36] LABS: POTASSIUM 6.8 mmol/L (3.5-5.1)
--- NOTE | 2019-10-12 16:58 | NEPHROLOGY PROGRESS NOTE ---
DATE: 10/12/2019 SUBJECTIVE: She is again complaining of odynophagia, though she is eating. Her glycemic control has been erratic. She complains that she is treated with too many crackers and peanut butter. No nausea or vomiting. OBJECTIVE: Vital Signs: Blood pressure 125/76, heart rate 74, respirations 14, afebrile. General: Generally thin, middle-aged woman in no distress. Skin: Warm and dry. Eyes: Conjunctivae are pink. Neck: Neck veins are not appreciated today. No facial edema. Heart: Regular with a gallop and a murmur. Lungs: Equal. No crackles. Abdomen: Benign. Extremities: No edema. IMPRESSION: 1. Chronic kidney disease 5D. She will have her routine dialysis today. 2K bath. 4 L ultrafiltration target. We will weigh her after treatment and change her dry weight. 2. Odynophagia. We will add GI cocktail x1 and Carafate. 3. Hypertension. In target. 4. Hypervolemia. Improved. Plan as above. 5. Electrolytes: Hyperkalemia on the . I will draw her potassium as she starts dialysis today. 2K bath. cc: Hardy Kay MD
--- NOTE | 2019-10-12 17:55 | PROGRESS NOTE ---
DATE: 10/12/2019 INTERVAL HISTORY: No acute events overnight. I am seeing Ms Chaparro in dialysis unit. According to report given to me by the nursing team, the patient has not been very compliant with dietary recommendations. Often times, does not eat her meals and then in between her meals she would have snacks, a lot of milk and some food. She oftentimes was found eating peppers. VITALS: Temperature 97.8 degrees, pulse 74, respiratory 14, blood pressure 125/76, saturating 100% on room air. PHYSICAL EXAMINATION: General: Ms. Becky Chaparro does not appear in acute distress. Mouth: Oral cavity is moist. Lungs: Air entry bilaterally equal. No wheeze, rhonchi, or crackles. Cardiovascular: S1, S2 normal. No murmur or gallop. Abdomen: Soft, nontender. Extremities: She has a right arm AV fistula which is hooked up with a dialysis machine. She previously had a PEG tube scar. Lower lower extremity edema. She had traumatic ulcers on dorsal aspect of her left foot. Neurologic: She is currently sleepy during my examination. LABS: Potassium was 6.8, however, the sample was drawn before dialysis. Her BUN is 71, creatinine 4.6. Microbiology: No data. IMAGING: No new data. ASSESSMENT AND PLAN: 1. Uncontrolled insulin-dependent diabetes mellitus type 1 with frequent hyper and hypoglycemia. She has been on sliding scale insulin and her blood sugars have been in reasonable control in the last few hours. Apparently after eating dextrose, her sugars go rapidly high and then it started dropping again. 2. End-stage renal disease on Tuesday, Tuesday, Tuesday hemodialysis with hyperkalemia and hypophosphatemia, now improving. She, however, needs regular dialysis. I will appreciate Nephrology recommendation about starting on potassium binding treatment. 3. Others. Continue phenytoin for seizures. Amlodipine, labetalol, and aspirin for essential hypertension. DISPOSITION: Continue to monitor patient inside the hospital. cc: Tony Gandhi MD
[2019-10-12] MEDS: MELATONIN PO SCH (22:28)
[2019-10-12] MEDS: NEURONTIN PO SCH (22:29)
[2019-10-13] MEDS: CARAFATE LIQUID PO SCH ×4 (07:16→21:20)
[2019-10-13] MEDS ORDERED: NS 2,000 ML MISC PRN (07:44)
[2019-10-13] MEDS ORDERED: HEPARIN IV PRN (07:44)
[2019-10-13] MEDS: PROTONIX PO SCH (07:49)
[2019-10-13] MEDS: HUMALOG SUBQ SCH ×4 (07:50→21:18)
--- NOTE | 2019-10-13 11:59 | PROGRESS NOTE ---
DATE: 10/13/2019 INTERVAL HISTORY: No acute events overnight. The patient is in dialysis today as well. She denies new complaints. VITALS: Temperature 97 degrees, pulse 86, respiratory 18, blood pressure 158/84, saturating 99% on room air. The patient states that she eats papers because she likes to chew them, but she does not swallow them. I counseled her that it could have a lot of bacteria and it could be dangerous to her health and she should not eat it. She understood it. PHYSICAL EXAMINATION: HEENT: Oral cavity is moist. No foreign body seen. Lungs: Air entry bilaterally equal. No wheeze, rhonchi, crackles. Cardiovascular: S1, S2 normal. No murmur or gallop. Abdomen: Soft, nontender. Extremities: She has a right arm AV fistula hooked up with the dialysis machine. Her PEG tube scar appears to be well healed, except there is residual wound without any infection. No lower extremity edema. She has multiple healed scars of her entire body. Neurologic: She is alert and oriented x3. She has right-sided eye intraocular lens. Her vision is intact on the left side with confrontational test. She could not count fingers in the right eye. LABS: No CBC today. BMP suggestive of blood glucose of 393. MICROBIOLOGY: No data. X-RAYS: No new imaging. ASSESSMENT AND PLAN: 1. Uncontrolled insulin-dependent diabetes mellitus type 1, which was diagnosed when she was 14 years old, with frequent hyper and hypoglycemia due to dietary indiscretion. The patient often times skips her meals and then goes on to have binge eating with crackers, peanut butter, milk, etc. I again counseled her about being regular with her diet to better control her blood sugars. I will continue her on sliding scale insulin. 2. End-stage renal disease on Tuesday, Tuesday, Tuesday hemodialysis with hyperkalemia and hypophosphatasemia now improving. Follow up renal profile daily. Nephrology team on board. 3. Others. Continue phenytoin for seizures; amlodipine, labetalol, and aspirin for essential hypertension. DISPOSITION: Monitor patient in the hospital. She is ready for discharge medically. However, as per my discussion with the charge nurse, she would not be able to go over the weekend to the [facility] facility. cc: Tony Gandhi MD
[2019-10-13] MEDS: KEPPRA PO SCH ×2 (12:13→21:20)
[2019-10-13] MEDS: DILANTIN PO SCH ×3 (12:13→21:19)
[2019-10-13] MEDS: ASPIRIN PO SCH (12:13)
[2019-10-13] MEDS: NORVASC PO SCH (12:13)
[2019-10-13] MEDS: HEPARIN SUBQ SCH ×3 (12:13→21:19)
[2019-10-13] MEDS: NEPHRO-VITE PO SCH (12:13)
[2019-10-13] MEDS: TRANDATE PO SCH ×2 (12:13→21:19)
[2019-10-13] MEDS: ULTRAM PO PRN ×2 (12:16→21:16)
--- NOTE | 2019-10-13 14:13 | NEPHROLOGY PROGRESS NOTE ---
DATE: 10/13/2019 SUBJECTIVE: She is asleep, currently on dialysis. No new complaints. OBJECTIVE: Vital Signs: Blood pressure 158/84, heart rate 86, respirations 17, afebrile. General: In no acute distress. Skin: Warm and dry. Neck: Neck veins are not appreciated. Cardiovascular: Heart is regular with a murmur and a gallop. Lungs: Equal. No crackles. Abdomen: Benign. Extremities: No edema, clubbing or cyanosis. IMPRESSION: 1. Chronic kidney disease 5D. Her volume status. Appears euvolemic now. We will adjust her dry weight. 2. Hyperkalemia was addressed with treatment. No changes. cc: Hardy Kay MD
[2019-10-13] MEDS: BENADRYL PO PRN (21:17)
[2019-10-13] MEDS: NEURONTIN PO SCH (21:18)
[2019-10-13] MEDS: MELATONIN PO SCH (21:20)
[2019-10-14 01:09] LABS: ACETONE SERUM NEGATIVE (NEGATIVE)
[2019-10-14 01:24] LABS: AGAP 18; BUN 32 mg/dL (8-22); CALCIUM 8.9 mg/dL (8.8-10.2); CHLORIDE 91 mmol/L (98-107); COSMO 289; CREATININE 2.4 mg/dL (0.5-0.9); ESTIMATED GFR 27; POTASSIUM 4.6 mmol/L (3.5-5.1); SODIUM 130 mmol/L (136-145); TCO2 21 mmol/L (25-35)
[2019-10-14 01:25] LABS: GLUCOSE 484 mg/dL (70-104)
[2019-10-14] MEDS ORDERED: HUMALOG SUBQ ONE (01:28)
[2019-10-14] MEDS: CARAFATE LIQUID PO SCH ×4 (01:41→20:08)
[2019-10-14 05:45] LABS: ALBUMIN 3.6 g/dL (3.5-5.0); CALCIUM 8.4 mg/dL (8.8-10.2); CREATININE 2.7 mg/dL (0.5-0.9); POTASSIUM 4.5 mmol/L (3.5-5.1)
[2019-10-14] MEDS: HUMALOG SUBQ SCH ×5 (06:15→23:52)
[2019-10-14] MEDS: PROTONIX PO SCH (06:16)
[2019-10-14] MEDS: NEPHRO-VITE PO SCH (09:30)
[2019-10-14] MEDS: KEPPRA PO SCH ×2 (09:30→20:08)
[2019-10-14] MEDS: NORVASC PO SCH (09:30)
[2019-10-14] MEDS: ASPIRIN PO SCH (09:30)
[2019-10-14] MEDS: HEPARIN SUBQ SCH ×2 (09:30→20:07)
[2019-10-14] MEDS: DILANTIN PO SCH ×3 (09:30→20:08)
[2019-10-14] MEDS: TRANDATE PO SCH ×2 (09:30→20:07)
[2019-10-14] MEDS: ULTRAM PO PRN ×2 (09:37→20:17)
[2019-10-14] MEDS: BENADRYL PO PRN ×2 (09:37→20:17)
--- NOTE | 2019-10-14 20:04 | PROGRESS NOTE ---
DATE: 10/14/2019 INTERVAL HISTORY: No acute events overnight. SUBJECTIVE: Ms. Becky Chaparro denies new complaints. I instructed her about not eating paper. She denies any nausea or vomiting. She states she did have a bowel movement today. She denies any nausea or vomiting. Discussed about diabetes management. We discussed about being regular with meals. VITALS: Temperature 98 degrees, pulse 93, respiratory rate 16, blood pressure 152/82, saturating 100% on room air. PHYSICAL EXAMINATION: Mr. Chaparro is not in acute distress. HEENT: Oral cavity is moist. Lungs: Air entry bilaterally equal. No wheeze, rhonchi, crackles. Cardiovascular: S1, S2 normal. No murmur or gallop. Abdomen: Soft, nontender. PEG tube site wound not infected. Extremities: No lower extremity edema. Neurologic: She is alert and oriented x3. She had a right-sided eye intraocular lens. Input and output suggests she ate 75% of her meals. LABS: No CBC today. BMP suggestive of sodium of 137, potassium 4.5, anion gap 15, BUN 36, creatinine 2.7. Her phosphorus is 2. Her blood glucose is 500. No new microbiological or imaging data. ASSESSMENT AND PLAN: 1. Uncontrolled insulin-dependent diabetes mellitus type 1 with hyper and hypoglycemia. She was diagnosed when she was 14 years old. Continue sliding scale insulin and add nighttime Lantus starting with 10 units. Follow up blood glucose with meals and at nighttime. 2. End-stage renal disease on Tuesday, Tuesday, Tuesday hemodialysis with hyperkalemia and hypophosphatemia, now improved. Follow up renal profile tomorrow. 3. Others; continue phenytoin for seizures; amlodipine labetalol, and aspirin for essential hypertension. DISPOSITION: I will monitor her blood glucose throughout the day and anticipate discharge in next 24 to 48 hours. Plan of care discussed with her. Her questions have been answered. cc: Tony Gandhi MD
[2019-10-14] MEDS: NEURONTIN PO SCH (20:06)
[2019-10-14] MEDS: MELATONIN PO SCH (20:07)
[2019-10-14] MEDS ORDERED: LANTUS INSULIN SUBQ SCH (21:00)
[2019-10-15] MEDS: CARAFATE LIQUID PO SCH ×4 (01:47→22:01)
[2019-10-15] MEDS: HUMALOG SUBQ SCH ×5 (02:31→21:59)
[2019-10-15] MEDS: PROTONIX PO SCH ×2 (05:54→07:04)
[2019-10-15] MEDS ORDERED: HEPARIN IV PRN (06:13)
[2019-10-15] MEDS ORDERED: NS 2,000 ML MISC PRN (06:13)
[2019-10-15] MEDS ORDERED: TIGHT: 0.2 ML/HR FOR DIALYSIS MISC PRN (06:13)
[2019-10-15 06:41] LABS: ALBUMIN 3.4 g/dL (3.5-5.0); CALCIUM 8.7 mg/dL (8.8-10.2); CREATININE 5.2 mg/dL (0.5-0.9); PHOSPHORUS 1.7 mg/dL (2.7-4.5); POTASSIUM 4.9 mmol/L (3.5-5.1)
--- NOTE | 2019-10-15 10:32 | PROGRESS NOTE ---
DATE: 10/15/2019 INTERVAL HISTORY: Unfortunately, the patient has received additional doses of short-acting insulin at nighttime, even after receiving the nighttime insulin dose, which probably caused her blood glucose to drop down in the morning time. SUBJECTIVE: Ms. Chaparro is sitting in the bed eating crackers and peanut butter and drinking milk and she wanted more crackers. She denies any nausea, vomiting, or abdominal pain. Her itching is better on current Benadryl. OBJECTIVE: Vital Signs: Temperature of 98.5 degrees, pulse 104, respiratory rate 16, blood pressure 105/73, saturating 100% room air. General: On physical examination, not in any acute distress. HEENT: Oral cavity is moist. Lungs: Air entry bilaterally equal. No wheeze, rhonchi, crackles. Cardiovascular: S1 and S2 normal. No murmur or gallop. Abdomen: Soft, nontender. There is a PEG tube site wound which is not infected. Extremity: No lower extremity edema. She is alert and oriented x3. She has a right eye intraocular lens. Input and Output: Suggest she had a bowel movement yesterday. LABORATORY DATA: Suggestive of a BUN of 66, creatinine of 5.2, potassium of 4.9, blood glucose currently 93. Her phosphorus is 1.7. Microbiology, no new data. ASSESSMENT AND PLAN: 1. Uncontrolled insulin-dependent diabetes mellitus type 1 with hyperglycemia and hypoglycemia since she was 14 years old. I had a detailed discussion about insulin management plan with the nursing team who was taking care of her at nighttime and during daytime as well, and the plan is to give her sliding scale insulin with meals 3 times and at nighttime. Even if her followup blood sugars in between these reads are high, we will try and avoid additional doses of insulin as much as possible to avoid hypoglycemia. She received a dose of Lantus on 10/14/2019 at nighttime, which I am cancelling it until I monitor her blood glucose during the remaining of the day. 2. End-stage renal disease on Tuesday, Tuesday, Tuesday hemodialysis. Ms. Chaparro unfortunately has had issues with hyperkalemia, hypophosphatemia, which are currently under control. Appreciate Nephrology's recommendation. Continue to obtain renal profile every day. 3. Others. Continue phenytoin for seizures; amlodipine, labetalol, and aspirin for essential hypertension; Keppra for seizures, heparin subcutaneous for deep venous thrombosis prophylaxis; and gabapentin for peripheral neuropathic pain. DISPOSITION: Ms. Chaparro has had fluctuating blood glucose level, intermittent dangerous hyperkalemia and hypophosphatemia, which have been keeping her inside the hospital. I will monitor her inside the hospital for another 24 to 48 hours, and we will come up with a final insulin regimen for diabetes before considering discharge. Plan of care was discussed with Ms. Chaparro. All questions have been answered. cc: Tony Gandhi MD
--- NOTE | 2019-10-15 10:35 | NEPHROLOGY PROGRESS NOTE ---
DATE: 10/15/2019 DATE AND TIME OF EXAM: 10/15/2019 at 0625 hours. SUBJECTIVE: Ms. Chaparro is resting quietly in bed. States that she had a high sugar last night with a low sugar this a.m., and just is not feeling well. OBJECTIVE: Vital Signs: Temperature 98.5 degrees, blood pressure 134/70, heart rate 88, respirations 17. She is on room air with last recorded saturation 100%. She has had 1238 in. She has had some dry emesis. LABS: Sodium is 134, her potassium is 4.9, chloride 93, CO2 is 24. BUN 66, creatinine is 5.2 with a glucose of 67. The patient's anion gap is 17, her calcium is 8.7, her phosphorus is 1.7, her albumin is 3.4. Previous hemoglobin of 8.9. PHYSICAL EXAMINATION: General: This is a 39-year-old female, resting quietly in bed. She appears chronically ill, no acute distress. Skin: Warm and dry. HEENT: Normocephalic, atraumatic. Conjunctiva is pale. She has LUDWIG. Mucous membranes are dry. Neck: Supple. Trachea midline. No evidence of JVD. Cardiovascular: She is regular rate and rhythm. She has a murmur and a gallop. Lungs: Clear to auscultation bilaterally. Equal excursion on room air. Abdomen: Soft, slightly distended, nontender. Positive bowel sounds. Genitourinary: Not inspected. Minimal void with dialysis assist. Extremities: No clubbing or cyanosis. No edema to the lower extremities. Fistula to the right upper arm. This is dry and intact with good palpable thrill. Neurological: She is alert and oriented x3. ASSESSMENT AND PLAN: 1. Chronic kidney disease stage 5 D. The patient is due for her routine dialysis treatment today. No indications or other changes. 2. Electrolytes and acid-base balance with correction on dialysis. 3. Anemia. This is low but stable. Hemoglobin of 8.9. 4. Diabetes type 1 with fluctuating hyper and hypoglycemia. This is being monitored by the primary care. I would like to thank you for allowing us to follow with this patient. Dictated by MANNY Hatch for Hardy Kay MD Face to face encounter, data reviewed, discussed with Gerri Fitzgerald on 10/15/19. I agree with the above assessment and plan of care. cc: MANNY Hatch MD MTDD
[2019-10-15] MEDS: NORVASC PO SCH (13:35)
[2019-10-15] MEDS: TRANDATE PO SCH ×2 (13:35→22:01)
[2019-10-15] MEDS: KEPPRA PO SCH ×2 (13:35→22:00)
[2019-10-15] MEDS: DILANTIN PO SCH ×3 (13:35→22:01)
[2019-10-15] MEDS: NEPHRO-VITE PO SCH (13:35)
[2019-10-15] MEDS: ASPIRIN PO SCH (13:35)
[2019-10-15] MEDS: HEPARIN SUBQ SCH ×2 (13:36→22:00)
[2019-10-15] MEDS: BENADRYL PO PRN (15:15)
[2019-10-15] MEDS: ULTRAM PO PRN ×2 (15:15→22:22)
[2019-10-15] MEDS ORDERED: LANTUS INSULIN SUBQ SCH (21:00)
[2019-10-15] MEDS: NEURONTIN PO SCH (22:00)
[2019-10-15] MEDS: MELATONIN PO SCH (22:00)
[2019-10-16] MEDS: CARAFATE LIQUID PO SCH ×3 (01:17→13:23)
[2019-10-16] MEDS: BENADRYL PO PRN (04:30)
[2019-10-16] MEDS: HUMALOG SUBQ SCH ×3 (06:17→16:39)
[2019-10-16 06:20] LABS: ALBUMIN 3.6 g/dL (3.5-5.0); CREATININE 4.1 mg/dL (0.5-0.9); PHOSPHORUS 2.1 mg/dL (2.7-4.5); POTASSIUM 4.5 mmol/L (3.5-5.1)
[2019-10-16] MEDS: PROTONIX PO SCH (06:20)
[2019-10-16] MEDS ORDERED: SODIUM PHOSPHATE 40 MMOL in NS 250 ML IV ONE (06:25)
[2019-10-16] MEDS: ULTRAM PO PRN (08:37)
[2019-10-16] MEDS: DILANTIN PO SCH ×2 (08:37→13:23)
[2019-10-16] MEDS: NEPHRO-VITE PO SCH (08:37)
[2019-10-16] MEDS: ASPIRIN PO SCH (08:37)
[2019-10-16] MEDS: KEPPRA PO SCH (08:37)
[2019-10-16] MEDS: TRANDATE PO SCH (08:37)
[2019-10-16] MEDS: NORVASC PO SCH (08:37)
[2019-10-16] MEDS: HEPARIN SUBQ SCH (08:38)
--- NOTE | 2019-10-16 09:47 | NEPHROLOGY PROGRESS NOTE ---
DATE: 10/16/2019 Date seen 10/16/2019, time seen 0640. SUBJECTIVE: Ms. Chaparro is resting quietly in bed. Head of the bed is elevated. She states that she slept well last night. No problems with her blood sugars in the last 24 hours. Denies chest pain or increased work of breathing. OBJECTIVE: Her most recent vital signs: Temperature 98.9 degrees, blood pressure 91/44, heart rate 80, respirations 15. She is on room air. Last recorded saturation 100%. She has had 480 in. She has had 4572 out. This is on dialysis. LABS: Sodium is 130, potassium 4.5, chloride is 88, CO2 24, BUN 57, creatinine is 4.1 with a glucose of 112. She has an anion gap of 18. Her calcium is 9, her phosphorus is 2.1. Her albumin is 3.6. Previous hemoglobin 8.9. PHYSICAL EXAMINATION: General: This is a 39-year-old female. She is resting quietly in bed. She appears chronically ill. No acute distress. Skin: Warm and dry. HEENT: Normocephalic, atraumatic. Conjunctivae are pale pink. She has LUDWIG. Mucous membranes are dry. Neck: Supple. Trachea midline. No JVD. Cardiovascular: Regular rate and rhythm. She has a murmur and a soft gallop. Lungs: Clear to auscultation bilaterally. Equal excursion on room air. Abdomen: Soft, round, large and nontender. Positive bowel sounds. Genitourinary: Not inspected. Minimal void with dialysis assist. Extremities: Have no edema. No clubbing or cyanosis. Fistula to the right upper arm, dry and intact with good palpable thrill. Neurological: Alert and oriented x3. ASSESSMENT AND PLAN: 1. Chronic kidney disease stage 5D. The patient is in need dialysis in the a.m. Otherwise she has been doing well. 2. Electrolytes and acid-base balance. These are stable. 3. Anemia. This is low but stable. 4. Diabetes mellitus type 1 with fluctuating hypo and hyperglycemia. This is followed by the primary care. I would like to thank you for allowing us to follow with this patient. Dictated by MANNY Hatch for Hardy Kay MD Face to face encounter, data reviewed, discussed with Gerri Fitzgerald on 10/16/19. I agree with the above assessment and plan of care. cc: MANNY Hatch MD MTDD
--- NOTE | 2019-10-16 15:39 | DISCHARGE SUMMARY ---
ADMISSION DATE: 10/07/2019 DISCHARGE DATE: 10/16/2019 FINAL DISCHARGE DIAGNOSES: 1. Uncontrolled insulin-dependent diabetes mellitus type 1. 2. Hyperkalemia. 3. Hypophosphatemia. 4. Diabetic gastroparesis. 5. Seizure disorder. 6. Chronic kidney disease stage 5D, on hemodialysis Tuesday, Tuesday, Tuesday. 7. Hypertension. CONSULTATIONS: Nephrology consultation with Dr. Kay. HOSPITAL COURSE: Ms. Chaparro is a 39-year-old female with a history of chronic kidney disease stage 5D, on hemodialysis, hypertension, seizure disorder, and diabetic gastroparesis, as well as uncontrolled insulin-dependent diabetes mellitus who presented to the ER with an elevated blood glucose. Upon further assessment, the patient was noted to have a phosphorus of 0.4. In light of these findings, the patient was admitted to the hospitalist service for further treatment and evaluation. The patient was noted to have a potassium of 7.4 and was taken for dialysis. The patient continued to have erratically blood glucose measurements throughout the hospitalization and adjustments were made to the patient's insulin regimen. It was noted that when the patient was treated with sliding scale insulin her blood sugar would bottom into the 20s to 50s. The patient's phosphorus was replenished and the hyperkalemia was addressed during the patient's routine dialysis sessions. The patient continued to improve clinically and was ultimately cleared for discharge to [facility] on October 16, 2019. On the day of discharge, the patient was noted to have a potassium of 4.5, sodium of 130, blood glucose of 112, and a phosphorus of 2.1. The patient also received replacement of her phosphorus prior to discharge to the [place] [facility]. DISCHARGE MEDICATIONS: 1. Folic acid with vitamin B 1 tablet oral daily. 2. Omeprazole 40 mg p.o. daily. 3. Ultram 50 mg oral every 6 hours p.r.n. for pain. 4. Lantus 10 units subcutaneous at bedtime. 5. Melatonin 1 mg oral at bedtime. 6. Carafate 1 g oral every 6 hours x2 weeks. 7. Aspirin 81 mg oral daily. 8. Norvasc 10 mg oral daily. 9. Dilantin 100 mg oral 3 times a day. 10. Lidoderm 5% patch topical daily. 11. Keppra 250 mg oral twice a day. 12. Tylenol 650 mg oral every 4 hours p.r.n. for fever or pain. 13. Neurontin 100 mg oral at bedtime. DISCHARGE DIET: An 1800 ADA diet. ACTIVITY: As tolerated. FOLLOW-UP INSTRUCTIONS: The patient will need to continue to follow up for her routine dialysis sessions 3 times a week at [facility] as scheduled on Tuesday, Tuesday, Tuesday. cc: Narcisa Pack MD
[2019-10-16 15:51] VITALS: BP 112/66
== END 2019-10-16 17:18 | DRG 637 ==
LOC: SUPCPDRO → ED 20:46 → EDIPHOLD 20:46 → OBSVTOIN 10-07 10:53 → SUATTDRO 10-07 10:53 → 1N 10-07 13:33
PROVIDERS: ATTEND Internal Medicine